=== PATIENT | male | born 1965 | race Caucasian/White ===

== ENCOUNTER 2016-05-17 | Outpatient (CLI) | payer MEDICARE, MEDICAID | END 2016-05-17 16:52 | disposition critical access hospital (66) | DX: R45.851 Suicidal ideations (principal) | CPT/HCPCS: A0425; A0429 ==

== ENCOUNTER 2016-05-17 17:11 | Emergency (ER) | payer MEDICARE, MEDICAID ==
[2016-05-17] MEDS ORDERED: LORazepam 0.5 MG TABLET PO STA ×2 (18:27→22:07)
[2016-05-17] MEDS ORDERED: LORazepam 0.5 MG TABLET ONE ×2 (18:31→22:07)
[2016-05-17] MEDS ORDERED: NICOTINE 21 MG PATCH TOP STA (18:43)
[2016-05-17] MEDS ORDERED: NICOTINE 21 MG PATCH TOP ONE (18:52)
[2016-05-18] MEDS ORDERED: QUEtiapine 25 MG TABLET PO STA (01:10)
[2016-05-18] MEDS ORDERED: HYDROcod/ACETAM 5/325 MG TABLET PO STA ×2 (01:12→09:22)
[2016-05-18] MEDS ORDERED: HYDROcod/ACETAM 5/325 MG TABLET ONE ×2 (01:13→09:26)
[2016-05-18] MEDS ORDERED: LORazepam 0.5 MG TABLET PO STA (07:45)
[2016-05-18] MEDS ORDERED: LORazepam 0.5 MG TABLET ONE (07:48)
== END 2016-05-18 13:28 | disposition home or self-care (01) ==
DX: R45.851 Suicidal ideations (principal); F32.9 Major depressive disorder, single episode, unspecified; F10.120 Alcohol abuse with intoxication, uncomplicated; R03.0 Elevated blood-pressure reading, without diagnosis of hypertension; M54.9 Dorsalgia, unspecified; G89.29 Other chronic pain; F17.200 Nicotine dependence, unspecified, uncomplicated
CPT/HCPCS: 36415; 80053; 80306; 80307; 83690; 85025; 99284; A9270; G0480

== ENCOUNTER 2016-06-20 07:36 | Outpatient (CLI) | payer MEDICARE, MEDICAID | END 2016-06-20 07:37 | disposition home or self-care (01) | DX: F33.0 Major depressive disorder, recurrent, mild (principal); E55.9 Vitamin D deficiency, unspecified; Z79.899 Other long term (current) drug therapy ==

== ENCOUNTER 2016-09-20 12:16 | Outpatient (CLI) | payer MEDICARE, MEDICAID ==
--- NOTE | 2016-09-20 16:46 | XRAY Report ---
TWO VIEW CHEST: 09/20/2016 CLINICAL INDICATION: Chest wall mass. FINDINGS: Frontal and lateral views of the chest demonstrate a normal cardiac silhouette. The lungs are clear. No abnormal calcification or ossification is appreciated in the chest wall soft tissues. IMPRESSION: NORMAL CHEST. CONSIDER CT OR MRI FOR FURTHER EVALUATION OF A CHEST WALL MASS. JOB #: [id number] EXT JOB #:[id number]
== END 2016-09-20 12:17 | disposition home or self-care (01) ==
LOC: DI.N 12:16
PROVIDERS: ATTEND Family Medicine
DX: R22.2 Localized swelling, mass and lump, trunk (principal)
CPT/HCPCS: 71020

== ENCOUNTER 2016-11-17 08:40 | Outpatient (CLI) | payer MEDICARE, MEDICAID ==
--- NOTE | 2016-11-17 20:02 | Mammography Report ---
DIGITAL DIAGNOSTIC BILATERAL MAMMOGRAM: 11/17/2016 CLINICAL INDICATION: Painful palpable abnormality right retroareolar breast. TECHNIQUE: Bilateral CC and MLO views. FINDINGS: This is the patient's baseline mammogram. There is asymmetric gynecomastia, right greater than left. No suspicious masses , clustered microcalcifications, or regions of architectural distortion are identified. IMPRESSION: ASYMMETRIC GYNECOMASTIA. RECOMMENDATION: Continued clinical evaluation. BIRADS CATEGORY 2 - BENIGN FINDINGS. STANDARD QUALIFYING STATEMENTS 1. This examination was reviewed with the aid of Computer-Aided Detection (CAD). 2. A negative or benign imaging report should not delay biopsy if clinically suspicious findings are present. Consider surgical consultation if warranted. More than 5% of cancers are not identified by imaging. 3. Dense breasts may obscure an underlying neoplasm. JOB #: [id number] EXT JOB #: [id number] DOMINGO
== END 2016-11-17 08:41 | disposition home or self-care (01) ==
LOC: DI 08:40
PROVIDERS: ATTEND Family Medicine
DX: N62 Hypertrophy of breast (principal)
CPT/HCPCS: 77066

== ENCOUNTER 2017-01-19 22:28 | Outpatient (CLI) | payer MEDICARE, MEDICAID | END 2017-01-19 22:29 | disposition critical access hospital (66) | LOC: EMS 22:28 | PROVIDERS: ATTEND Surgery | DX: R45.851 Suicidal ideations (principal); R07.81 Pleurodynia; W19.XXXA Unspecified fall, initial encounter; Y92.032 Bedroom in apartment as the place of occurrence of the external cause | CPT/HCPCS: A0425; A0429 ==

== ENCOUNTER 2017-01-19 22:49 | Emergency (ER) | payer MEDICARE, MEDICAID ==
[2017-01-19] MEDS ORDERED: SODIUM CHLORIDE 0.9% 1,000 ML IV ONE (23:12)
--- NOTE | 2017-01-19 23:13 | ED Physician Documentation ---
PD HPI MHE - Stated complaint Stated Complaint: ETOH/SI - Chief complaint Chief Complaint: MHE - History obtained from History obtained from: Patient, EMS - History of Present Illness Primary symptom: Suicidal ideation (states is going to kill himself with a gun) Timing - onset: Today Pain level max: 5 Pain level now: 5 Contributing factors: Substance abuse - ETOH - Additional information Additional information: Patient is a 51-year-old gentleman who is well-known alcoholic, he presents after drinking heavily today stating that he is going to kill himself with a gun. States that if he had access to again tonight he would have shot himself. He also states that he fell recently and injured his right ribs. States he has no interest in quitting drinking at this time. Review of Systems Ten Systems: 10 systems reviewed and negative Constitutional: denies: Fever, Chills Ears: denies: Ear pain Nose: denies: Rhinorrhea / runny nose, Congestion Throat: denies: Sore throat Cardiac: denies: Chest pain / pressure, Palpitations, Calf pain Respiratory: denies: Cough GI: denies: Nausea, Vomiting, Diarrhea Skin: denies: Rash Musculoskeletal: denies: Neck pain, Back pain Neurologic: denies: Focal weakness, Numbness, Headache PD PAST MEDICAL HISTORY - Past Medical History Past Medical History: Yes Neuro: Other GI: GERD, Pancreatitis Psych: Other Musculoskeletal: Chronic back pain - Past Surgical History Past Surgical History: Yes General: Colonoscopy Ortho: Rotator cuff repair HEENT: Other - Present Medications Home Medications: Ambulatory Orders Medication Instructions Recorded Confirmed Omeprazole [PriLOSEC] 20 mg PO DAILY 01/13/13 05/17/16 QUEtiapine [SEROquel] 100 mg ORAL QPM 08/14/14 01/20/17 HYDROcod/ACETAM 5/325 [[place] 5/325] 1 - 2 ea PO Q4H PRN 10/11/15 05/17/16 Lorazepam [Ativan] 1 mg PO TID PRN #7 tablet 10/11/15 05/17/16 cloNIDine [Catapres] 0.1 mg PO BID 01/20/17 01/20/17 - Allergies Allergies/Adverse Reactions: Allergies Allergy/AdvReac Type Severity Reaction Status Date / Time Penicillins AdvReac Unknown Rash Verified 09/16/17 03:01 - Social History Does the pt smoke?: Yes Smoking Status: Current every day smoker Does the pt drink ETOH?: Yes Does the pt have substance abuse?: No - Immunizations Immunizations are current?: Yes - POLST Patient has POLST: No PD ED PE NORMAL - Vitals Vital signs reviewed: Yes - General General: Alert and oriented X 3, No acute distress, Well developed/nourished - HEENT HEENT: PERRL, Moist mucous membranes - Neck Neck: Supple, no meningeal sign - Cardiac Cardiac: RRR, Strong equal pulses - Respiratory Respiratory: No respiratory distress, Clear bilaterally, Other (Tender to palpation over the right low ribs. No crepitus. No ecchymosis) - Abdomen Abdomen: Soft, Non tender, Other (Mild distention with mild caput [place]) - Back Back: No CVA TTP, No spinal TTP - Derm Derm: Warm and dry, No rash - Extremities Extremities: No deformity, No edema, No calf tenderness / cord - Neuro Neuro: Alert and oriented X 3 - Psych Psych: Normal mood, Normal affect Results - Vitals Vitals: Vital Signs - 24 hr 01/19/17 01/19/17 01/20/17 22:53 23:30 00:30 Temperature 36.1 C L Heart Rate 146 H 96 96 Respiratory 15 17 16 Rate Blood Pressure 105/63 115/62 121/77 O2 Saturation 96 95 99 01/20/17 01/20/17 01/20/17 01:15 02:12 02:37 Temperature Heart Rate 100 74 Respiratory 17 16 Rate Blood Pressure 132/79 H 101/67 107/75 O2 Saturation 100 97 Oxygen O2 Source Room air - EKG (time done) 2303 Rate: Rate (enter#) (109) Rhythm: Sinus tachycardia [place]: Normal Intervals: Normal [place] QRS: Normal Ischemia: Non specific changes - Labs Labs: Laboratory Tests 01/19/17 01/19/17 01/20/17 23:05 23:05 00:30 WBC 5.8 RBC 4.86 Hgb 15.5 Hct 45.7 MCV 94.0 MCH 31.9 H MCHC 33.9 RDW 13.8 Plt Count 231 MPV 7.1 L Neut # 2.3 Lymph # 3.0 [place] # 0.3 Eos # 0.1 Baso # 0.1 Absolute Nucleated RBC 0.00 Nucleated RBCs 0.1 Sodium 143 Potassium 3.5 Chloride 107 Carbon Dioxide 23 Anion Gap 13.0 BUN 15 Creatinine 1.1 Estimated GFR (MDRD) 70 L Glucose 137 H Calcium 8.6 Total Bilirubin 0.4 AST 53 H ALT 24 Alkaline Phosphatase 84 Total Protein 7.2 Albumin 3.8 Globulin 3.4 Albumin/Globulin Ratio 1.1 Lipase 32 Urine Color YELLOW Urine Clarity CLEAR Urine pH 5.5 Ur Specific [place] 1.025 Urine Protein NEGATIVE Urine Glucose (UA) NEGATIVE Urine Ketones NEGATIVE Urine Occult Blood NEGATIVE Urine Nitrite NEGATIVE Urine Bilirubin NEGATIVE Urine Urobilinogen 0.2 (NORMAL) Ur Leukocyte Esterase NEGATIVE Ur Microscopic Review NOT INDICATED Urine Culture Comments NOT INDICATED Salicylates < 6.0 Urine Opiates Screen NEGATIVE Ur Oxycodone Screen NEGATIVE Urine Methadone Screen NEGATIVE Ur Propoxyphene Screen NEGATIVE Acetaminophen < 10 L Ur Barbiturates Screen NEGATIVE Ur Tricyclics Screen POSITIVE H Ur Phencyclidine Scrn NEGATIVE Ur Amphetamine Screen NEGATIVE U Methamphetamines Scrn NEGATIVE U Benzodiazepines Scrn POSITIVE H Urine Cocaine Screen NEGATIVE U Cannabinoids Screen NEGATIVE Ethyl Alcohol 336.4 - Rads (name of study) ribs xray Radiology: Prelim report reviewed, EMP read contemporaneously, See rad report ( old rib fractures. no acute findings) PD MEDICAL DECISION MAKING - ED course Complexity details: reviewed old records, reviewed results, re-evaluated patient , considered differential, d/w patient ED course: Patient is a 51-year-old male who presents to the emergency department with alcohol intoxication and suicidal ideation. He will be allowed to sober in the emergency department overnight for repeat evaluation. Will likely need social work evaluation in the morning to determine if he is still suicidal. Patient will be signed out to the [facility] emergency department physician. This document was made in part using voice recognition software. While efforts are made to proofread this document, sound alike and grammatical errors may occur. Departure - Departure Clinical Impression: Suicidal ideation Alcohol intoxication Qualifiers: Complication of substance-induced condition: uncomplicated Qualified Code(s): F10.920 - Alcohol use, unspecified with intoxication, uncomplicated Condition: Stable
[2017-01-19 23:15] LABS: BASOPHILS # (AUTO) 0.1 10^3/uL (0.0-0.1); BASOPHILS % (AUTO) 1.2 %; EOSINOPHILS # (AUTO) 0.1 10^3/uL (0.0-0.7); EOSINOPHILS % (AUTO) 2.1 %; HCT - HEMATOCRIT 45.7 % (42.0-52.0); HGB - HEMOGLOBIN 15.5 g/dL (14.0-18.0); LYMPHOCYTES % (AUTO) 52.2 %; MEAN CORPUSCULAR HEMOGLOBIN 31.9 pg (27.0-31.0); MEAN CORPUSCULAR HGB CONC 33.9 g/dL (32.0-36.0); MEAN PLATELET VOLUME 7.1 fL (7.4-11.4); MONOCYTES # (AUTO) 0.3 10^3/uL (0.0-1.0); MONOCYTES % (AUTO) 5.5 %; NEUTROPHILS # (AUTO) 2.3 10^3/uL (1.5-6.6); NUCLEATED RED BLOOD CELLS AUTO 0.1 /100WBC; RED BLOOD COUNT 4.86 10^6/uL (4.70-6.10); RED CELL DISTRIBUTION WIDTH 13.8 % (12.0-15.0); UNCORRECTED WHITE BLOOD COUNT 5.8 x10^3/uL; WHITE BLOOD COUNT 5.8 x10^3/uL (4.8-10.8)
[2017-01-19 23:31] LABS: ALBUMIN/GLOBULIN RATIO 1.1 (1.0-2.2); BILIRUBIN,TOTAL 0.4 mg/dL (0.2-1.0); BUN - BLOOD UREA NITROGEN 15 mg/dL (6-20); CALCIUM 8.6 mg/dL (8.5-10.3); CARBON DIOXIDE - CO2 23 mmol/L (21-32); CHLORIDE 107 mmol/L (101-111); CREATININE 1.1 mg/dL (0.6-1.2); GFR - MDRD 70 (>89); GLUCOSE 137 mg/dL (70-100); LIPASE 32 U/L (22-51); POTASSIUM 3.5 mmol/L (3.5-5.0); SALICYLATE < 6.0 mg/dL; SODIUM 143 mmol/L (135-145); TOTAL PROTEIN 7.2 g/dL (6.7-8.2)
[2017-01-19 23:41] LABS: ACETAMINOPHEN < 10 ug/mL (10-30)
[2017-01-20 00:35] LABS: BILIRUBIN,URINE NEGATIVE (NEGATIVE); PH,URINE 5.5 PH (5.0-7.5)
[2017-01-20 00:37] LABS: UA CHARGE (STRIP ONLY) YES; UR CULTURE IF IND NOT INDICATED
[2017-01-20] MEDS ORDERED: ACETAMINOPHEN 325 MG TABLET PO STA (01:01)
[2017-01-20] MEDS ORDERED: ACETAMINOPHEN 325 MG TABLET PO ONE (01:26)
--- NOTE | 2017-01-20 02:04 | XRAY Preliminary Report ---
Exam: XR Ribs w/PA Chest RT IMPRESSION: 1. Old right rib fractures. No definite acute abnormality seen. [facility] SITE ID: [id number]
--- NOTE | 2017-01-20 02:07 | XRAY Report ---
EXAM: RIGHT RIB RADIOGRAPHY EXAM DATE: 01/20/2017 01:50 AM. CLINICAL HISTORY: Fall, R rib pain. COMPARISON: 09/20/2016. TECHNIQUE: 1 view of the chest and 4 views of the ribs. FINDINGS: Bones: Old right rib fractures. No definite acute fracture identified. Lungs: No alveolar consolidation or pleural effusion. No pneumothorax. Mediastinum: With and exam limitations, cardiomediastinal silhouette is unremarkable. Other: None. IMPRESSION: 1. Old right rib fractures. No definite acute abnormality seen. [facility] Referring Provider Line: [phone] SITE ID: [id number]
[2017-01-20] MEDS ORDERED: SODIUM CHLORIDE FLUSH 0.9% 10 ML SYRINGE IVP ONE (09:06)
--- NOTE | 2017-01-20 12:34 | ED Physician Documentation ---
PD HPI MHE - Stated complaint Stated Complaint: ETOH/SI - Chief complaint Chief Complaint: MHE - History obtained from History obtained from: Patient - History of Present Illness Primary symptom: Suicidal ideation, Other (etoh) Timing - onset: Last night Contributing factors: Substance abuse - ETOH, Other (long time pet is about to ) Similar symptoms before: Diagnosis (alcohol intoxication) Recently seen: Not recently seen - Additional information Additional information: 51-year-old male alcoholic with prior history of depression and suicidal ideation was heavily intoxicated last night and feeling suicidal. This morning as she is sober he is no longer feeling suicidal. He is able contract with the social work professor for safety. He states the trigger for his stress is a pet (dog) that is about to . Review of Systems Constitutional: denies: Fever Skin: denies: Rash Neurologic: denies: Generalized weakness, Focal weakness, Numbness PD PAST MEDICAL HISTORY - Past Medical History Past Medical History: Yes Neuro: Other GI: GERD, Pancreatitis Psych: Other Musculoskeletal: Chronic back pain - Past Surgical History Past Surgical History: Yes General: Colonoscopy Ortho: Rotator cuff repair HEENT: Other - Present Medications Home Medications: Ambulatory Orders Medication Instructions Recorded Confirmed Omeprazole [PriLOSEC] 20 mg PO DAILY 01/13/13 05/17/16 QUEtiapine [SEROquel] 100 mg ORAL QPM 08/14/14 01/20/17 HYDROcod/ACETAM 5/325 [[place] 5/325] 1 - 2 ea PO Q4H PRN 10/11/15 05/17/16 Lorazepam [Ativan] 1 mg PO TID PRN #7 tablet 10/11/15 05/17/16 cloNIDine [Catapres] 0.1 mg PO BID 01/20/17 01/20/17 - Allergies Allergies/Adverse Reactions: Allergies Allergy/AdvReac Type Severity Reaction Status Date / Time Penicillins AdvReac Unknown Rash Verified 01/20/17 03:01 - Social History Does the pt smoke?: Yes Smoking Status: Current every day smoker Does the pt drink ETOH?: Yes Does the pt have substance abuse?: No - Immunizations Immunizations are current?: Yes - POLST Patient has POLST: No PD ED PE NORMAL - Vitals Vital signs reviewed: Yes (exit vitals are normal tachy on arrival ) - General General: No acute distress, Well developed/nourished, Other (The patient is alert cooperative and shaky) - HEENT HEENT: Atraumatic - Respiratory Respiratory: No respiratory distress - Derm Derm: Normal color, Warm and dry, No rash - Extremities Extremities: No deformity - Neuro Neuro: No motor deficit, No sensory deficit - Psych Psych: Normal mood, Normal affect Results - Vitals Vitals: Vital Signs - 24 hr 01/19/17 01/19/17 01/20/17 22:53 23:30 00:30 Temperature 36.1 C L Heart Rate 146 H 96 96 Respiratory 15 17 16 Rate Blood Pressure 105/63 115/62 121/77 O2 Saturation 96 95 99 01/20/17 01/20/17 01/20/17 01:15 02:12 02:37 Temperature Heart Rate 100 74 Respiratory 17 16 Rate Blood Pressure 132/79 H 101/67 107/75 O2 Saturation 100 97 01/20/17 06:22 Temperature Heart Rate 77 Respiratory 16 Rate Blood Pressure 107/62 O2 Saturation 100 Oxygen O2 Source Room air - Labs Labs: Laboratory Tests 01/19/17 01/19/17 01/20/17 23:05 23:05 00:30 WBC 5.8 RBC 4.86 Hgb 15.5 Hct 45.7 MCV 94.0 MCH 31.9 H MCHC 33.9 RDW 13.8 Plt Count 231 MPV 7.1 L Neut # 2.3 Lymph # 3.0 Rich # 0.3 Eos # 0.1 Baso # 0.1 Absolute Nucleated RBC 0.00 Nucleated RBCs 0.1 Sodium 143 Potassium 3.5 Chloride 107 Carbon Dioxide 23 Anion Gap 13.0 BUN 15 Creatinine 1.1 Estimated GFR (MDRD) 70 L Glucose 137 H Calcium 8.6 Total Bilirubin 0.4 AST 53 H ALT 24 Alkaline Phosphatase 84 Total Protein 7.2 Albumin 3.8 Globulin 3.4 Albumin/Globulin Ratio 1.1 Lipase 32 Urine Color YELLOW Urine Clarity CLEAR Urine pH 5.5 Ur Specific [place] 1.025 Urine Protein NEGATIVE Urine Glucose (UA) NEGATIVE Urine Ketones NEGATIVE Urine Occult Blood NEGATIVE Urine Nitrite NEGATIVE Urine Bilirubin NEGATIVE Urine Urobilinogen 0.2 (NORMAL) Ur Leukocyte Esterase NEGATIVE Ur Microscopic Review NOT INDICATED Urine Culture Comments NOT INDICATED Salicylates < 6.0 Urine Opiates Screen NEGATIVE Ur Oxycodone Screen NEGATIVE Urine Methadone Screen NEGATIVE Ur Propoxyphene Screen NEGATIVE Acetaminophen < 10 L Ur Barbiturates Screen NEGATIVE Ur Tricyclics Screen POSITIVE H Ur Phencyclidine Scrn NEGATIVE Ur Amphetamine Screen NEGATIVE U Methamphetamines Scrn NEGATIVE U Benzodiazepines Scrn POSITIVE H Urine Cocaine Screen NEGATIVE U Cannabinoids Screen NEGATIVE Ethyl Alcohol 336.4 01/20/17 09:09 WBC RBC Hgb Hct MCV MCH MCHC RDW Plt Count MPV Neut # Lymph # Rich # Eos # Baso # Absolute Nucleated RBC Nucleated RBCs Sodium Potassium Chloride Carbon Dioxide Anion Gap BUN Creatinine Estimated GFR (MDRD) Glucose Calcium Total Bilirubin AST ALT Alkaline Phosphatase Total Protein Albumin Globulin Albumin/Globulin Ratio Lipase Urine Color Urine Clarity Urine pH Ur Specific [place] Urine Protein Urine Glucose (UA) Urine Ketones Urine Occult Blood Urine Nitrite Urine Bilirubin Urine Urobilinogen Ur Leukocyte Esterase Ur Microscopic Review Urine Culture Comments Salicylates Urine Opiates Screen Ur Oxycodone Screen Urine Methadone Screen Ur Propoxyphene Screen Acetaminophen Ur Barbiturates Screen Ur Tricyclics Screen Ur Phencyclidine Scrn Ur Amphetamine Screen U Methamphetamines Scrn U Benzodiazepines Scrn Urine Cocaine Screen U Cannabinoids Screen Ethyl Alcohol 114.5 PD MEDICAL DECISION MAKING - ED course Complexity details: considered differential, d/w patient ED course: 51-year-old male arrived to the emergency department last night suicidal and intoxicated. He spent the night in the emergency department he is sober this morning he does have the shakes and indicates that he will be seeking inpatient alcohol treatment on Sunday. He has had alcohol withdrawal and number of times and he will taper his alcohol use.He is evaluated by the social work professor and contracted for safety. Departure - Departure Disposition: 01 Home, Self Care Clinical Impression: Suicidal ideation, Stress reaction Alcohol intoxication Qualifiers: Complication of substance-induced condition: uncomplicated Qualified Code(s): F10.920 - Alcohol use, unspecified with intoxication, uncomplicated Condition: Stable Instructions: ED Depression, ED Stress React, ED Alcohol Intoxication Follow-Up: Jone Kumar MD [Primary Care Provider] - Comments: Cut your alcohol consumption daily to nothing over the next week.
[2017-01-20 12:40] VITALS: BP 140/97
== END 2017-01-20 12:47 | disposition home or self-care (01) ==
LOC: EDUNIT# → ED 22:49
DX: R45.851 Suicidal ideations (principal); F10.920 Alcohol use, unspecified with intoxication, uncomplicated; F17.200 Nicotine dependence, unspecified, uncomplicated; R00.0 Tachycardia, unspecified
CPT/HCPCS: 36415; 71101; 80053; 80306; 80307; 81003; 83690; 85025; 93005; 99284; 99285; A9270; G0480; 80320; 80329; 81001; 87086

== ENCOUNTER 2017-03-05 13:25 | Emergency (ER) | payer MEDICARE, MEDICAID ==
[2017-03-05 13:36] VITALS: BP 118/83
[2017-03-05] MEDS ORDERED: oxyCODONE 5 MG TABLET PO STA (15:52)
[2017-03-05] MEDS ORDERED: oxyCODONE 5 MG TABLET ONE (16:08)
--- NOTE | 2017-03-05 16:39 | Ultrasound Preliminary Report ---
Exam: US ABDOMEN LIMITED IMPRESSION: Submitted images demonstrate no evidence of focal fluid collection. [facility] SITE ID: [id number]
--- NOTE | 2017-03-05 16:42 | Ultrasound Report ---
EXAM: ABDOMEN ULTRASOUND LIMITED, RUQ EXAM DATE: 03/05/2017 04:29 PM. CLINICAL HISTORY: Abdominal pain. COMPARISON: 02/22/2017. TECHNIQUE: Real-time scanning was performed with static images obtained. FINDINGS: Submitted images demonstrate no evidence of focal fluid collection. IMPRESSION: Submitted images demonstrate no evidence of focal fluid collection. [facility] Referring Provider Line: [phone] SITE ID: [id number]
--- NOTE | 2017-03-05 18:02 | ED Physician Documentation ---
History of Present Illness - Stated complaint Stated Complaint: ABD PAIN - Chief complaint Chief Complaint: Abd Pain - Additonal information Additional information: hx from pt and 51 male known to our ER for EtOH abuse, mental health, suicidal apparently he went to EtOH detox in [facility] Feb 12 on Feb 16 he had emergency gallbladder surgery 2 days later he had inc pain and was found to have a bowel perf and was sent to [facility] in [place] where he had surgery and now he has an ostomy and an open wound that needs to have the dressing changed three times a day he was dced back home to [facility] with 10 percocet pills and told to follow up with a local surgeon he has an appt to see Dr Woodward Wed (2 days from now) ran out of pain meds today is having pain - when carefully questioned it does not really seem acutely changed or different just worse 2/2 now meds no fever and local swelling to right port site they called Dr Almazan office for med refill and that request was denied as Dr Woodward has not seen pt so came to ER Review of Systems Constitutional: denies: Fever GI: reports: Abdominal Pain PD PAST MEDICAL HISTORY - Past Medical History Past Medical History: Yes Neuro: Other GI: GERD, Pancreatitis Psych: Other Musculoskeletal: Chronic back pain - Past Surgical History Past Surgical History: Yes General: Cholecystectomy, Colonoscopy Ortho: Rotator cuff repair HEENT: Other - Present Medications Home Medications: Ambulatory Orders Medication Instructions Recorded Confirmed Omeprazole [PriLOSEC] 20 mg PO DAILY 01/13/13 03/05/17 QUEtiapine [SEROquel] 100 mg ORAL QPM 08/14/14 03/05/17 HYDROcod/ACETAM 5/325 [[place] 5/325] 1 - 2 ea PO Q4H PRN 10/11/15 03/05/17 oxyCODONE [Roxicodone] 5 mg PO Q4-6H PRN #10 tablet 03/05/17 - Allergies Allergies/Adverse Reactions: Allergies Allergy/AdvReac Type Severity Reaction Status Date / Time Penicillins AdvReac Unknown Rash Verified 03/05/17 13:36 - Social History Does the pt smoke?: No Smoking Status: Never smoker Does the pt drink ETOH?: No Does the pt have substance abuse?: No - Immunizations Immunizations are current?: Yes - POLST Patient has POLST: No PD ED PE NORMAL - Vitals Vital signs reviewed: Yes - General General: Alert and oriented X 3 - Cardiac Cardiac: RRR - Respiratory Respiratory: No respiratory distress, Clear bilaterally - Abdomen Abdomen: Other (ostomy pink and draining, right vertical incision clean and packed without infection or excessive drainage, abd mod swollen and tender b ut not peritoneal, small focal swelling over right lower port site) Results - Vitals Vitals: Vital Signs - 24 hr 03/05/17 13:30 Temperature 36.4 C L Heart Rate 98 Respiratory 17 Rate Blood Pressure 118/83 H O2 Saturation 100 Oxygen O2 Source Room air PD MEDICAL DECISION MAKING - ED course ED course: diff situation, pt with known hx menatl health and substance abuse req narcotic refill - but also is very recently port op and has ostomy and large open packed surigcial incision so i do believe he has pain so will rx a very limited number to last until appt on Sun, purposely chose oxcodone s apap as that would be safer in an OD and has hx EtOH abuse so likely liver dz Departure - Departure Disposition: 01 Home, Self Care Clinical Impression: Post-op pain, Medication refill Condition: Good Instructions: ED Post Op Pain Follow-Up: GANESH WOODWARD MD [Provider Admit Priv/Credential] - Prescriptions: oxyCODONE [Roxicodone] 5 mg PO Q4-6H PRN #10 tablet PRN Reason: Severe Pain Comments: Please follow up with Dr Woodward The ER is not supposed to refill pain medications - this was an exceptional circumstance so I prescribed a limited number - but not further refills can be gotten through the ER - your surgeon and/or PMD will need to manage your pain medications form now on
== END 2017-03-05 18:16 | disposition home or self-care (01) ==
LOC: ED 13:25
DX: G89.18 Other acute postprocedural pain (principal)
CPT/HCPCS: 76705; 99282; 99283; A9270

== ENCOUNTER 2017-08-03 09:58 | Outpatient (CLI) | payer MEDICARE, MEDICAID ==
[2017-08-03 10:11] LABS: BASOPHILS # (AUTO) 0.1 10^3/uL (0.0-0.1); BASOPHILS % (AUTO) 1.3 %; EOSINOPHILS # (AUTO) 0.1 10^3/uL (0.0-0.7); EOSINOPHILS % (AUTO) 1.7 %; HGB - HEMOGLOBIN 13.3 g/dL (14.0-18.0); LYMPHOCYTES % (AUTO) 43.8 %; MEAN CORPUSCULAR HEMOGLOBIN 31.3 pg (27.0-31.0); MEAN CORPUSCULAR HGB CONC 33.8 g/dL (32.0-36.0); MEAN CORPUSCULAR VOLUME 92.4 fL (80.0-94.0); MONOCYTES # (AUTO) 0.4 10^3/uL (0.0-1.0); MONOCYTES % (AUTO) 7.9 %; NEUTROPHILS % (AUTO) 45.3 %; PLT - PLATELET COUNT 163 10^3/uL (130-450); RED BLOOD COUNT 4.25 10^6/uL (4.70-6.10); RED CELL DISTRIBUTION WIDTH 14.8 % (12.0-15.0); WHITE BLOOD COUNT 4.5 x10^3/uL (4.8-10.8)
[2017-08-03 10:25] LABS: CALCIUM 8.1 mg/dL (8.5-10.3); CREATININE 0.8 mg/dL (0.6-1.2)
== END 2017-08-03 09:59 | disposition home or self-care (01) ==
LOC: LAB 09:58
PROVIDERS: ATTEND Surgery
DX: K43.9 Ventral hernia without obstruction or gangrene (principal); Z93.3 Colostomy status
CPT/HCPCS: 36415; 80048; 85025

== ENCOUNTER 2017-08-08 05:55 | Inpatient (IN) | payer MEDICARE, MEDICAID ==
[2017-08-08] MEDS ORDERED: ceFAZolin 2 GM/50 ML 2 GM/50 ML BAG IV ONE (06:31)
[2017-08-08] MEDS ORDERED: metroNIDAZOLE 500 MG/100 ML 500 MG/100 ML BAG ONE (06:32)
[2017-08-08] MEDS ORDERED: LACTATED RINGERS 1,000 ML IV ONE ×5 (06:50→14:40)
[2017-08-08] MEDS ORDERED: ONDANSETRON 4 MG/2 ML VIAL ONE ×2 (07:00→14:13)
[2017-08-08] MEDS ORDERED: BUPIVACAINE 0.5% PF 10 ML VIAL ONE (07:14)
[2017-08-08] MEDS ORDERED: BUPIVACAINE 0.5%-EPI 1:200000 PF 10 ML VIAL ONE (07:15)
[2017-08-08] MEDS ORDERED: ONDANSETRON 4 MG/2 ML VIAL IVP ONE (08:45)
[2017-08-08] MEDS ORDERED: ROCURONIUM 50 MG/5 ML VIAL IVP ONE (08:45)
[2017-08-08] MEDS ORDERED: METOPROLOL 5 MG/5 ML VIAL IVP ONE (08:45)
[2017-08-08] MEDS ORDERED: fentaNYL 250 MCG/5 ML VIAL IVP ONE (08:45)
[2017-08-08] MEDS ORDERED: ePHEDrine 50 MG/ML VIAL IVP ONE (08:45)
[2017-08-08] MEDS ORDERED: ACETAMINOPHEN 1,000 MG/100 ML 100 ML IV ONE (08:45)
[2017-08-08] MEDS ORDERED: PROPOFOL 200 MG/20 ML VIAL IVP ONE (08:45)
[2017-08-08] MEDS ORDERED: ROPIVACAINE 0.5% PF 20 ML VIAL EPI ONE (08:45)
[2017-08-08] MEDS ORDERED: LIDOCAINE-MPF 2% 5 ML VIAL IM ONE (08:45)
[2017-08-08] MEDS ORDERED: MIDAZOLAM 2 MG/2 ML VIAL IVP ONE (08:45)
[2017-08-08] MEDS ORDERED: GENTAMICIN 80 MG/2 ML VIAL IM ONE (10:59)
[2017-08-08] MEDS ORDERED: GENTAMICIN 80 MG/2 ML VIAL IL ONE (10:59)
[2017-08-08] MEDS ORDERED: BUPIVACAINE 0.5% PF 10 ML VIAL IM ONE (11:01)
[2017-08-08] MEDS ORDERED: GENTAMICIN 80 MG/2 ML VIAL ONE (11:02)
[2017-08-08] MEDS ORDERED: BUPIVACAINE 0.5%-EPI 1:200000 PF 30 ML VIAL SUBQ ONE (11:02)
[2017-08-08] MEDS ORDERED: fent/BUPIV 2 MCG/0.125% 250 ML EP PRN (12:15)
[2017-08-08] MEDS ORDERED: ONDANSETRON 4 MG/2 ML VIAL IVP PRN (13:15)
--- NOTE | 2017-08-08 13:20 | OPERATIVE REPORT ---
Operative Report - General Admit Date: 08/08/17 Procedure Date: 08/08/17 Pre-Op Diagnosis: ostomy and ventral hernia Procedure Performed: Exploratory laparotomy, lysis of adhesions, take down of colostomy with colorectal anastomosis, myofascial release, ventral hernia repair with mesh, scar revision Post Op Diagnosis: same - Procedure Note Primary Surgeon: Crissy Secondary Surgeon: Ap Anesthesia Provider: Denilson Carl Anesthesia Technique: General ET tube IV Fluids (mL): 3,200 Estimated Blood Loss (mL): 50 Urine Output (mL): 650 Drain/Tube Type: David Mena round drain Complications: none - Other Other Information/Narrative: Indication for procedure: This is a 52-year-old male who underwent a sigmoidectomy with diverting end colostomy at an outside facility secondary to perforated diverticulitis approximately 4 months prior. He developed a postoperative infection infection and subsequently a ventral hernia. He is here today for reversal of his ostomy and repair of his ventral hernia. Findings: After obtaining informed consent from the patient he was brought into the operating room and an epidural catheter placed. He was intubated by anesthesia. He was administered perioperative antibiotics. SCD boots were applied and he was prepped and draped in the usual sterile fashion, Ioban was placed and a timeout was taken according to protocol. The stoma was closed with a running locking 3-0 silk suture. An elliptical incision was created around the patient's ostomy. The skin was divided to the subcutaneous tissue and the ostomy stump was circumferentially dissected from the subcutaneous tissue down to the level of the fascia. There was a small parastomal hernia hernia present and small bowel loops were protected during dissection. The stoma was completely dissected from the fascia and reduced. A midline incision was then made from 3 cm below the umbilicus towards the xiphoid process. The subcutaneous tissue was carefully divided and a very thin hernia sac was encountered. The patient's abdomen was entered in the epigastric region protecting the underlying bowel and omentum. Koker clamps were then placed on the fascia and the underlying omentum and small bowel were carefully lysed from the anterior abdominal wall using combination of Metzenbaums dissection and electrocautery. The bowel was completely freed from the anterior abdominal wall. The stoma was then reduced into the abdominal cavity and it was further dissected from small bowel adhesions using a combination of electrocautery and Metzenbaum dissection. The left colon was then mobilized by opening up the white line of Toldt Towards the left upper quadrant. I then turned my attention to the patient's pelvis and the rectal stump was identified. This was freed from small bowel adhesions. The rectosigmoid stump was noted to be above the patient's pelvic brim. The rectal sizer was inserted but we are unable to reach the end of the stump. For this reason approximately 5 cm of distal sigmoid was transected. The site of distal transection was selected and electrocautery was utilized to open up the pertoneum overlying the mesentary. The colon was circumferentially dissected from the underlying mesentery. The contour stapler was then used to divide the rectum at this location. The underlying mesentery was then divided using the LigaSure device near the colon. The specimen was then passed off. The proximal stump was then brought down to the pelvis and was noted to easily be lying within the pelvis for the anastomosis. Blue towels were placed over the incision and the proximal colonic stump was then grasped using the pursestring device and a 3-0 Prolene suture was passed through the device. The stoma was then transected using a 10 blade and the specimen was passed off. The colon was then opened however the pursestring had not passed through an entire side of the colon, but was rather through the mesentery. It was removed. The colon was then grasped and the mesentery was divided off of the colonic wall proximally several centimeters. The distal stump was again grasped with the pursestring device and the 3-0 Prolene was inserted through the device and the distal colon was again transected using a 10 blade. This time the pursestring device did go through all aspects of the colonic wall. The colon was opened and the anvil device from a 28 mm EEA stapler was inserted. The pursestring was tied down. The EEA was then inserted and opened. The anvil was then connected to the EEA stapling device. The staple was then created and the stapling device removed. The donuts were noted to be complete. A leak test was then performed using a rigid proctosigmoidoscopy and no air bubbles are seen. The abdominal cavity was irrigated and suctioned. Hemostasis was noted to be achieved. The surgeons changed gown and gloves. We then turned our attention to the ventral hernia repair.The fascial edges were grasped and skin flaps were created over the anterior rectus sheath approximately 4 cm circumferentially.The hernia sac was so thin that it did not require transection. The posterior rectus sheath was then grasped and was opened up opening the retrorectal space. This was performed up to the level of the xiphoid process, laterally to the similunar lines bilaterally and towards the pubic bone inferiorly. On the patient's left abdominal wall the ostomy site was carefully taken down as well. The remaining defect in the posterior rectus sheath was closed with a running 3-0 Vicryl suture in a transverse fashion. After complete mobilization of the retrorectal space this was then closed with a running 2-0 PDS.A light weight [id number] polypropylene ultra Pro mesh was then opened and placed in gentamicin antibiotic solution. The team's gloves were changed. The mesh was then placed in the retrorectal space and trimmed to an appropriate length overlapping the midline closure by approximately 5 cm bilaterally and 2 cm superiorly and inferiorly. The mesh was sutured into place with Interrupted 2-0 Prolene sutures to the anterior rectal sheath in a circumferential fashion placing approximately 12 sutures. I then placed a 10 Canadian round VENICE drain over the mesh. This was brought out through the right lateral abdominal wall. The anterior rectus sheath was then closed with a running 0 looped PDS. A second 10 Canadian round VENICE drain was placed in the subcutaneous space. Both drains were sutured in place with 2-0 nylon. The subcutaneous tissue was then closed with 3-0 Vicryl. The midline scar was then grasped and was transected using a 15 blade. It was noted to be approximately 20 cm in length. Hemostasis was then achieved using electrocautery. The subcutaneous tissue was copiously irrigated with gentamicin irrigation. The ostomy site was then closed with interrupted 3-0 Vicryl and the skin incision was closed with interrupted 3-0 nylon. 1/2 inch iodoform packing was placed in between the sutures in the ostomy closure site. The midline incision was then closed with a running 4-0 Monocryl. The ostomy site was dressed with 4 x 4's and the midline incision was closed with a Prevena VAC. An abdominal binder was placed. The patient was subsequently extubated and taken to the recovery room in stable condition.
[2017-08-08] MEDS ORDERED: fent/BUPIV 2 MCG/0.125% 250 ML EP ONE (13:24)
[2017-08-08] MEDS: HYDROmorphone 1 MG/ML CARPUJECT ONE ×4 (14:15→20:35)
[2017-08-08] MEDS ORDERED: NALBUPHINE 20 MG/ML AMP IVP PRN (16:04)
[2017-08-08] MEDS ORDERED: METOCLOPRAMIDE 10 MG/2 ML VIAL IVP PRN (16:04)
[2017-08-08] MEDS ORDERED: diphenhydrAMINE INJ 50 MG/ML VIAL IV PRN (16:04)
[2017-08-08] MEDS: INSULIN ASPART 300 UNIT/3 ML PEN SUBQ SCH ×2 (16:51→20:47)
[2017-08-08] MEDS: SODIUM CHLORIDE FLUSH 0.9% 10 ML SYRINGE IVP SCH (17:38)
[2017-08-08] MEDS: ONDANSETRON 4 MG/2 ML VIAL IVP PRN (17:43)
[2017-08-08] MEDS: SODIUM CHLORIDE FLUSH 0.9% 10 ML SYRINGE IVP PRN ×2 (17:43→20:21)
[2017-08-08] MEDS: ACETAMINOPHEN 1,000 MG/100 ML 100 ML IV PRN (17:48)
[2017-08-08] MEDS: PIPERACILLIN/TAZOBACTAM 3.375 GM in SODIUM CHLORIDE 0.9% MINIBAG 100 ML IV SCH (18:33)
[2017-08-08] MEDS ORDERED: SODIUM CHLORIDE FLUSH 0.9% 10 ML SYRINGE ONE (20:27)
[2017-08-08] MEDS: QUEtiapine 25 MG TABLET PO SCH (20:54)
--- NOTE | 2017-08-08 20:54 | PROCEDURE REPORT ---
Hospitalist Procedure Note - Procedure Note Procedure Note: Called to patient room due to catheter disconnection. Catheter had become disconnected from tubing. Epidural replaced due to need for adequate post op pain control. Patient given 1mg dilaudid IV and placed in a siting position. Back prepped with betadine and sterile drape applied. Epidural space at L1-L2 located using loss of resistance with air at 5cm. Catheter placed with ease at 10cm. Negative paresthesia, negative heme, negative test dose. Epidural dosed with 6ml of 0.25% bupivicaine at epidural gtt started at previous rate. Patient states he is comfortable and pain is decreasing.
[2017-08-08] MEDS ORDERED: HYDROmorphone 1 MG/ML CARPUJECT IVP SCH (21:00)
[2017-08-09] MEDS: PIPERACILLIN/TAZOBACTAM 3.375 GM in SODIUM CHLORIDE 0.9% MINIBAG 100 ML IV SCH ×3 (00:11→11:24)
[2017-08-09] MEDS: LACTATED RINGERS 1,000 ML IV SCH ×2 (05:07→15:55)
[2017-08-09] MEDS: MORPHINE 2 MG/ML SYRINGE IVP PRN ×5 (06:08→21:11)
[2017-08-09] MEDS: PANTOPRAZOLE 40 MG VIAL IVP SCH (06:53)
[2017-08-09] MEDS: SODIUM CHLORIDE FLUSH 0.9% 10 ML SYRINGE IVP SCH ×3 (06:54→15:55)
[2017-08-09] MEDS ORDERED: ROPIVACAINE 0.2% PF 10 ML VIAL ONE (06:58)
--- NOTE | 2017-08-09 07:12 | CONSULTATION NOTE ---
Referring Provider Name of Referring Provider:: Denilson Carl CRNA Consult Date: 08/09/17 (Called to evaluate effectiveness of MEDICAL SERVICE REPRESENTATIVE cont epidural. Currently running .125% bupivicaine with 2 mcg/ml fentanyl, increased to 10 ml/ hr. Also bolused with 5 ml 0.2% Naropin. Will evaluate in one hour effectiveness of increase.) History - Past Medical History Cardiovascular: reports: None Respiratory: reports: None Neuro: reports: Other GI: reports: GERD, Pancreatitis : reports: None HEENT: reports: Chronic vision loss, Other Psych: reports: Other Musculoskeletal: reports: Chronic back pain Derm: reports: None MRSA Hx?: No - Past Surgical History General: reports: Cholecystectomy, Colonoscopy Ortho: reports: Rotator cuff repair HEENT: reports: Other - POLST Patient has POLST: No Meds/Allgy - Home Medications Home Medications: Ambulatory Orders Medication Instructions Recorded Confirmed QUEtiapine [SEROquel] 50 mg ORAL QPM 08/14/14 08/08/17 HYDROcod/ACETAM 5/325 [[place] 5/325] 1 - 2 ea PO Q4H PRN 10/11/15 08/08/17 Famotidine [Pepcid] 20 mg PO BID PRN 08/08/17 08/08/17 - Allergies Allergies/Adverse Reactions: Allergies Allergy/AdvReac Type Severity Reaction Status Date / Time Penicillins AdvReac Unknown Rash Verified 03/05/17 13:36 Exam - Vital Signs Vital Signs: Vital Signs x48h Temp Pulse Pulse Resp BP Pulse Ox 08/09/17 05:30 36.7 C 86 16 108/75 98 08/09/17 02:20 36.5 C 93 18 109/71 94 08/09/17 01:15 36.2 C L 66 18 107/64 96 08/09/17 00:10 36.8 C 91 18 121/67 100
--- NOTE | 2017-08-09 08:13 | PROVIDER PROGRESS NOTE ---
Subjective - Prog Note Date Prog Note Date: 08/09/17 Prog Note Time: 08:10 - Subjective Subjective: Epidural was inadvertently removed last night and replaced. Patient was recently seen by anesthesia and epidural increased. He still complains of 8/10 pain. Has not ambulated yet. No flatus. No nausea, no emesis Objective - Vital Signs/Intake & Output Reviewed Vital Signs: Yes Vital Signs: Vital Signs x48h Temp Pulse Pulse Resp BP Pulse Ox 08/09/17 07:45 37.3 C 93 16 105/66 98 08/09/17 05:30 36.7 C 86 16 108/75 98 08/09/17 02:20 36.5 C 93 18 109/71 94 08/09/17 01:15 36.2 C L 66 18 107/64 96 Intake & Output: Intake & Output 08/06/17 08/07/17 08/08/17 08/09/17 23:59 23:59 23:59 23:59 Intake Total 1120 615 Output Total 1315 1032 Balance -195 -417 - Objective General Appearance: positive: No acute distress Respiratory: positive: Breath sounds nml Cardiovascular: positive: Regular rate & rhythm Abdomen: positive: Other (prevena dressing and stoma dressing in place. [address] with serous drainage. Abdomen soft and non-distended.) Extremities: positive: No pedal edema Neurologic/Psychiatric: positive: Oriented x3 - Lab Results Other Labs: Lab Results x24hrs 08/09/17 08/08/17 08/08/17 Range/Units 07:45 20:45 16:29 POC Whole Bld Glucose 136 H 122 H 133 H (70 - 100) mg/dL Assessment/Plan - Problem List (1) Surgery follow-up examination Impression: s/p ostomy takedown, lysis of adhesions, colorectal anastomosis, myofacial release and ventral hernia repair POD 1 - Patient is on ERAS protocol but has not ambulated due to pain. He does have chronic pain in addition to his acute pain. 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 Once pain control improved will get patient up ambulating. Continue IV Tylenol - No flatus as of yet. Continue sips of clear liquids. - dressing to remain in place for now. - 24 hours post operative antibiotics. - lovenox for DVT prophylaxis - home meds resumed. - DC bravo - DC IV fluids
[2017-08-09] MEDS: SODIUM CHLORIDE FLUSH 0.9% 10 ML SYRINGE IVP PRN (09:44)
[2017-08-09] MEDS: INSULIN ASPART 300 UNIT/3 ML PEN SUBQ SCH ×4 (10:50→21:03)
[2017-08-09] MEDS: ENOXAPARIN 40 MG/0.4 ML SYRINGE SUBQ SCH (11:24)
[2017-08-09] MEDS: ACETAMINOPHEN 1,000 MG/100 ML 100 ML IV PRN (15:39)
[2017-08-09] MEDS ORDERED: fent/BUPIV 2 MCG/0.125% 250 ML EP PRN (16:24)
[2017-08-09] MEDS: QUEtiapine 25 MG TABLET PO SCH (21:09)
[2017-08-10] MEDS: LACTATED RINGERS 1,000 ML IV SCH ×2 (01:26→20:50)
[2017-08-10] MEDS: MORPHINE 2 MG/ML SYRINGE IVP PRN ×3 (02:52→11:41)
[2017-08-10] MEDS: HYDROmorphone 1 MG/ML CARPUJECT IVP PRN ×3 (05:46→15:36)
[2017-08-10] MEDS: SODIUM CHLORIDE FLUSH 0.9% 10 ML SYRINGE IVP SCH ×3 (05:52→19:31)
[2017-08-10] MEDS: PANTOPRAZOLE 40 MG VIAL IVP SCH (05:53)
[2017-08-10] MEDS: ONDANSETRON 4 MG/2 ML VIAL IVP PRN (06:05)
--- NOTE | 2017-08-10 07:56 | ANESTHESIA POST OP EVALUATION ---
Anesthesia Post Eval - Post Anesthesia Eval CV Function Including HR & BP: positive: Stable Pain Control: positive: Adequate Nausea & Vomiting: positive: Negative Mental Status: positive: Appropriate Anesthesia Complications: positive: Other (Patient had epidural that had become disconnected accidentally and therefore needed to be replaced. The epidural that was replaced on 08/08 was effective for pain however the patient developed leg weakness and urinary retention. On 08/09 the epidural solution was stopped and the patient switched to a parenteral opioid for pain, retention resolved and pain was well managed this am when I saw him. I removed his epidural catheter, tip intact, site clear. He is not due for his next lovenox dose until this afternoon.)
[2017-08-10] MEDS: ENOXAPARIN 40 MG/0.4 ML SYRINGE SUBQ SCH (08:19)
[2017-08-10] MEDS: INSULIN ASPART 300 UNIT/3 ML PEN SUBQ SCH ×4 (08:19→20:43)
[2017-08-10 11:34] LABS: BASOPHILS % (AUTO) 0.3 %; EOSINOPHILS % (AUTO) 0.3 %; LYMPHOCYTES # (AUTO) 0.9 10^3/uL (1.5-3.5); LYMPHOCYTES % (AUTO) 11.6 %; MEAN CORPUSCULAR HEMOGLOBIN 32.1 pg (27.0-31.0); MEAN CORPUSCULAR HGB CONC 34.1 g/dL (32.0-36.0); MEAN CORPUSCULAR VOLUME 94.1 fL (80.0-94.0); MEAN PLATELET VOLUME 7.6 fL (7.4-11.4); MONOCYTES # (AUTO) 0.5 10^3/uL (0.0-1.0); MONOCYTES % (AUTO) 6.7 %; NEUTROPHILS # (AUTO) 6.6 10^3/uL (1.5-6.6); NEUTROPHILS % (AUTO) 81.1 %; PLT - PLATELET COUNT 162 10^3/uL (130-450); RED BLOOD COUNT 3.41 10^6/uL (4.70-6.10); RED CELL DISTRIBUTION WIDTH 15.1 % (12.0-15.0); WHITE BLOOD COUNT 8.1 x10^3/uL (4.8-10.8)
--- NOTE | 2017-08-10 11:43 | PROVIDER PROGRESS NOTE ---
Subjective - General Admit Date: 08/08/17 Procedure Date: 08/08/17 Post Op Days: 2 Procedure Performed: ostomy reversal, repair of ventral hernia with myofacial release and mesh - Review of Systems Wound/Incisions: positive: Healing well, Dressing dry and intact Drain Type: VENICE x 2 - superficial: 100, deep 60 - serosanguinous General: negative: Fever Gastrointestinal: positive: Abdominal pain. negative: Nausea, Vomiting, Flatus Genitourinary: negative: No symptoms Psychiatric: negative: No symptoms - Other Other Information/Narrative: Patient had numbness in bilateral legs yesterday: epidural removed and dilaudid and morphine started. Numbness has resolved. Pain control improved. He has been ambulating in room but not in hallway. Merchant DCed and patient voiding. Tolerating clears without nausea or bloating. Slightly tachycardic - likely related to pain. Afebrile, normal WBC. HH slightly decreased. Objective - Patient Data Reviewed Vital Signs: Yes Vital Signs: Vital Signs x48h Temp Pulse Resp BP Pulse Ox 08/10/17 07:27 36.8 C 108 H 19 136/88 H 95 08/10/17 05:56 37.2 C 108 H 18 109/67 97 Weight: Weight 08/08/17 08/09/17 08/10/17 23:59 23:59 23:59 Weight (kg) 74 kg Intake & Output: Intake and Output Totals x24h 08/08/17 08/09/17 08/10/17 23:59 23:59 23:59 Intake Total 1120 2715 1673.333 Output Total 1315 1912 3095 Balance -195 803 -1421.667 - Lab Results Lab Results: 08/10/17 11:30 Other Lab Results: Lab Results x24hrs 08/10/17 08/10/17 08/09/17 Range/Units 11:30 07:28 20:25 WBC 8.1 (4.8-10.8) x10^3/uL RBC 3.41 L (4.70-6.10) 10^6/uL Hgb 11.0 L (14.0-18.0) g/dL Hct 32.1 L (42.0-52.0) % MCV 94.1 H (80.0-94.0) fL MCH 32.1 H (27.0-31.0) pg MCHC 34.1 (32.0-36.0) g/dL RDW 15.1 H (12.0-15.0) % Plt Count 162 (130-450) 10^3/uL MPV 7.6 (7.4-11.4) fL Neut # 6.6 (1.5-6.6) 10^3/uL Lymph # 0.9 L (1.5-3.5) 10^3/uL Iron # 0.5 (0.0-1.0) 10^3/uL Eos # 0.0 (0.0-0.7) 10^3/uL Baso # 0.0 (0.0-0.1) 10^3/uL Absolute Nucleated RBC 0.01 x10^3/uL Nucleated RBC % 0.1 /100WBC POC Whole Bld Glucose 109 H 110 H (70 - 100) mg/dL 08/09/17 Range/Units 16:25 WBC (4.8-10.8) x10^3/uL RBC (4.70-6.10) 10^6/uL Hgb (14.0-18.0) g/dL Hct (42.0-52.0) % MCV (80.0-94.0) fL MCH (27.0-31.0) pg MCHC (32.0-36.0) g/dL RDW (12.0-15.0) % Plt Count (130-450) 10^3/uL MPV (7.4-11.4) fL Neut # (1.5-6.6) 10^3/uL Lymph # (1.5-3.5) 10^3/uL Iron # (0.0-1.0) 10^3/uL Eos # (0.0-0.7) 10^3/uL Baso # (0.0-0.1) 10^3/uL Absolute Nucleated RBC x10^3/uL Nucleated RBC % /100WBC POC Whole Bld Glucose 125 H (70 - 100) mg/dL - Current Medications Current Medications: Current Medications Generic Name Dose Route Start Last Admin Trade Name Freq PRN Reason Stop Dose Admin Enoxaparin Sodium 40 mg 08/09/17 09:00 08/10/17 08:19 Lovenox SUBQ Not Given DAILY [facility] Hydromorphone HCl 1 mg 08/10/17 02:59 08/10/17 09:31 Dilaudid Inj Carp IVP 1 mg Q2HR PRN Administration PAIN Lactated Ringer's 1,000 mls @ 50 mls/hr 08/08/17 14:00 08/10/17 06:12 Lr IV 50 mls/hr .Q20H DESMOND Infusion Acetaminophen 100 mls @ 400 mls/hr 08/08/17 13:15 08/09/17 15:56 Ofirmev IV 08/10/17 13:14 Infused Q6HR PRN Infusion PAIN Insulin Aspart 1 - 5 unit 08/08/17 17:00 08/10/17 08:19 Novolog SUBQ Not Given 0800,1200,1700,2100 [facility] Protocol Morphine Sulfate 2 mg 08/08/17 13:12 08/10/17 07:47 Morphine IVP 2 mg Q2H PRN Administration PAIN Ondansetron HCl 4 mg 08/08/17 16:04 08/10/17 06:05 Zofran Inj IVP 4 mg Q6H PRN Administration Nausea / Vomiting Pantoprazole Sodium 40 mg 08/09/17 07:00 08/10/17 05:53 Protonix IVP 40 mg QDAC DESMOND Administration Quetiapine Fumarate 50 mg 08/08/17 21:00 08/09/17 21:09 Seroquel PO 50 mg QPM DESMOND Administration Sodium Chloride 10 ml 08/08/17 17:00 08/10/17 08:19 Normal Saline Flush 0.9% IVP Not Given 0100,0900,1700 [facility] Sodium Chloride 10 ml 08/08/17 13:13 08/09/17 09:44 Normal Saline Flush 0.9% IVP 10 ml PRN PRN Administration NEEDED PER PROVIDER ORDERS - Physical Exam Wound/Incisions: positive: Healing well, Dressing dry and intact, Other (stoma packing removed and replaced with dry dressing. Prevena in place to suction) General Appearance: positive: No acute distress Respiratory: positive: No respiratory distress, Breath sounds nml Cardiovascular: positive: Tachycardia Abdomen: positive: Other (soft and non-distended. Drains and prevena vac in place. stoma incision healing well.) Extremities: positive: No pedal edema Neurologic/Psychiatric: positive: Oriented x3 Impression/Plan - Problem List Problem List: s/p ostomy reversal and ventral hernia repair with myofacial release and mesh placement POD 2 - will start oral pain meds and attempt to wean IV pain meds. - encouraged ambulation - awaiting bowel function. Patient advanced to soft diet but advised to take it slow. - antibiotics DCed - ostomy packing removed. Prevena vac to stay in place until Sunday or Sunday depending on discharge. Ostomy dressing should be changed daily by nursing - Drain output decreasing. Will lilkely remove prior to discharge if drainage < 40 cc in 24 hours - Patient instructed to keep abdominal binder in place while ambulating for 4 weeks post operatively. - Patient will be stable for discharge home once he is ambulating without assistance, pain is controlled on oral pain medications, he is tolerating a diet and passing flatus. I do not anticipate his hospital length of stay to exceed 96 hours.
--- NOTE | 2017-08-10 11:55 | Discharge Plan ---
Discharge Plan Disposition: 01 Home, Self Care Diet: Soft Activity Restrictions: nothing strenuous Shower Restrictions: Yes (no tub bathing 1 week. OK to shower ) Driving Restrictions: Yes (not while on narcotics) Weight Bearing: Full Weight Instruction Topics: Colorectal Surg Recovery, Hernia Repair Open Dc Additional Instructions or Follow Up instructions: Wash your hands prior to touching your incisions. Change your ostomy dressing daily until there is no drainage present Shower daily with soap and water. Pat the incisions dry If you see redness around your incisions or drainage from your incisions or develop fevers, chills, nausea, vomiting or worsening abdominal pain contact your surgeon's office immediately No strenuous activity or heavy lifting for 6 weeks. You are encouraged to walk short distances frequently. Call Dr. Woodward's office for an appointment 1 week after discharge for post operative evaluation. Wear your abdominal binder while ambulating for 4 weeks post operatively No Smoking: If you smoke, Please STOP! Call for help. Follow-up with: GANESH WOODWARD MD [Provider Admit Priv/Credential] - 1 Week
[2017-08-10] MEDS ORDERED: ACETAMINOPHEN 325 MG TABLET PO PRN (11:56)
[2017-08-10] MEDS: DOCUSATE SODIUM 100 MG CAPSULE PO SCH ×2 (13:29→20:49)
[2017-08-10] MEDS: oxyCOD/ACETAMIN 5 MG/325 MG TABLET PO PRN ×2 (19:31→23:44)
[2017-08-10] MEDS: QUEtiapine 25 MG TABLET PO SCH (20:49)
[2017-08-11] MEDS: SODIUM CHLORIDE FLUSH 0.9% 10 ML SYRINGE IVP SCH ×3 (02:25→16:14)
[2017-08-11] MEDS: oxyCOD/ACETAMIN 5 MG/325 MG TABLET PO PRN ×3 (03:17→11:07)
[2017-08-11] MEDS: PANTOPRAZOLE 40 MG VIAL IVP SCH (07:56)
[2017-08-11] MEDS: DOCUSATE SODIUM 100 MG CAPSULE PO SCH ×2 (08:00→20:30)
[2017-08-11] MEDS: ENOXAPARIN 40 MG/0.4 ML SYRINGE SUBQ SCH (08:00)
[2017-08-11] MEDS: INSULIN ASPART 300 UNIT/3 ML PEN SUBQ SCH ×4 (08:37→20:31)
[2017-08-11] MEDS: LACTATED RINGERS 1,000 ML IV SCH ×2 (12:55→14:33)
[2017-08-11] MEDS: HYDROmorphone 1 MG/ML CARPUJECT IVP PRN ×4 (13:38→20:35)
[2017-08-11] MEDS: QUEtiapine 25 MG TABLET PO SCH (20:30)
--- NOTE | 2017-08-11 21:47 | PROVIDER PROGRESS NOTE ---
Subjective - General Admit Date: 08/08/17 Procedure Date: 08/08/17 Post Op Days: 3 Procedure Performed: ostomy reversal, repair of ventral hernia with myofacial release and mesh - Review of Systems Wound/Incisions: positive: Healing well, Dressing dry and intact, Other (stoma packing removed and replaced with dry dressing. Prevena in place to suction) Drain Type: VENICE x 2 - superficial: 100, deep 60 - serosanguinous General: negative: Fever Gastrointestinal: positive: Abdominal pain, Flatus, Other (abdominal bloating). negative: Nausea, Vomiting Genitourinary: negative: No symptoms Psychiatric: negative: No symptoms Objective - Patient Data Vital Signs: Vital Signs x48h Temp Pulse Resp BP Pulse Ox 08/11/17 20:34 36.8 C 105 H 19 155/96 H 95 08/11/17 16:03 37.0 C 104 H 18 146/104 H 95 08/11/17 14:12 37.0 C 92 20 143/88 H 96 Intake & Output: Intake and Output Totals x24h 08/09/17 08/10/17 08/11/17 23:59 23:59 23:59 Intake Total 2715 4505.833 2414.167 Output Total 1912 5460 2845 Balance 803 -954.167 -430.833 - Lab Results Lab Results: 08/10/17 11:30 Other Lab Results: Lab Results x24hrs 08/11/17 08/11/17 08/11/17 Range/Units 20:30 16:53 11:43 POC Whole Bld Glucose 93 95 128 H (70 - 100) mg/dL 08/11/17 Range/Units 07:35 POC Whole Bld Glucose 103 H (70 - 100) mg/dL - Current Medications Current Medications: Current Medications Generic Name Dose Route Start Last Admin Trade Name Freq PRN Reason Stop Dose Admin Docusate Sodium 100 mg 08/10/17 12:00 08/11/17 20:30 Colace 100mg Capsule PO 100 mg BID DESMOND Administration Enoxaparin Sodium 40 mg 08/09/17 09:00 08/11/17 08:00 Lovenox SUBQ 40 mg DAILY DESMOND Administration Hydromorphone HCl 1 mg 08/10/17 02:59 08/11/17 20:35 Dilaudid Inj Carp IVP 1 mg Q2HR PRN Administration PAIN Lactated Ringer's 1,000 mls @ 70 mls/hr 08/11/17 12:48 08/11/17 19:03 Lr IV 70 mls/hr .[id number] DESMOND Infusion Insulin Aspart 1 - 5 unit 08/08/17 17:00 08/11/17 20:31 Novolog SUBQ Not Given 0800,1200,1700,2100 [facility] Protocol Metoclopramide HCl 10 mg 08/08/17 16:04 08/11/17 12:36 Reglan Inj IVP 10 mg Q6H PRN Administration Nausea / Vomiting Morphine Sulfate 2 mg 08/08/17 13:12 08/10/17 11:41 Morphine IVP 2 mg Q2H PRN Administration PAIN Ondansetron HCl 4 mg 08/08/17 16:04 08/10/17 06:05 Zofran Inj IVP 4 mg Q6H PRN Administration Nausea / Vomiting Pantoprazole Sodium 40 mg 08/09/17 07:00 08/11/17 07:56 Protonix IVP 40 mg QDAC DESMOND Administration Quetiapine Fumarate 50 mg 08/08/17 21:00 08/11/17 20:30 Seroquel PO 50 mg QPM DESMOND Administration Sodium Chloride 10 ml 08/08/17 17:00 08/11/17 16:14 Normal Saline Flush 0.9% IVP 10 ml 0100,0900,1700 DESMOND Administration Sodium Chloride 10 ml 08/08/17 13:13 08/09/17 09:44 Normal Saline Flush 0.9% IVP 10 ml PRN PRN Administration NEEDED PER PROVIDER ORDERS - Physical Exam Respiratory: positive: No respiratory distress Cardiovascular: positive: Regular rate & rhythm Abdomen: positive: Other (wound vac in place.) Impression/Plan - Problem List Problem List: s/p colostomy takedown, ventral hernia repair pOD#3. Some ileus still present. ambulate Recommend liquids until bowel function improves.
[2017-08-12] MEDS: HYDROmorphone 1 MG/ML CARPUJECT IVP PRN ×7 (00:18→20:20)
[2017-08-12] MEDS ORDERED: CALAMINE/ZINC OXIDE 118 ML BOTTLE TOP PRN (00:33)
[2017-08-12] MEDS: SODIUM CHLORIDE FLUSH 0.9% 10 ML SYRINGE IVP SCH ×3 (00:37→16:12)
[2017-08-12] MEDS: LACTATED RINGERS 1,000 ML IV SCH ×2 (05:57→14:40)
[2017-08-12] MEDS: SODIUM CHLORIDE FLUSH 0.9% 10 ML SYRINGE IVP PRN ×2 (06:01→09:21)
[2017-08-12] MEDS: PANTOPRAZOLE 40 MG VIAL IVP SCH (06:01)
[2017-08-12] MEDS: INSULIN ASPART 300 UNIT/3 ML PEN SUBQ SCH ×4 (08:03→22:09)
[2017-08-12] MEDS: DOCUSATE SODIUM 100 MG CAPSULE PO SCH ×2 (08:36→22:08)
[2017-08-12] MEDS: ENOXAPARIN 40 MG/0.4 ML SYRINGE SUBQ SCH (08:36)
[2017-08-12] MEDS ORDERED: HYDROcod/ACETAM 5/325 MG TABLET PO PRN (12:24)
[2017-08-12] MEDS: HYDROcod/ACETAM 5/325 MG TABLET PO PRN ×3 (14:10→22:08)
--- NOTE | 2017-08-12 21:36 | PROVIDER PROGRESS NOTE ---
Subjective - General Admit Date: 08/08/17 Procedure Date: 08/08/17 Post Op Days: 4 Procedure Performed: ostomy reversal, repair of ventral hernia with myofacial release and mesh - Review of Systems Wound/Incisions: positive: Healing well, Dressing dry and intact, Other (stoma packing removed and replaced with dry dressing. Prevena in place to suction) Drain Type: VENICE removed General: negative: Fever Gastrointestinal: positive: Abdominal pain, Flatus, Other (abdominal bloating). negative: Nausea, Vomiting Genitourinary: negative: No symptoms Psychiatric: negative: No symptoms Objective - Patient Data Vital Signs: Vital Signs x48h Temp Pulse Resp BP Pulse Ox 08/12/17 20:17 37.1 C 87 19 155/89 H 99 08/12/17 16:11 36.6 C 93 18 121/90 H 99 08/12/17 14:02 36.9 C 94 19 142/79 H 96 Intake & Output: Intake and Output Totals x24h 08/10/17 08/11/17 08/12/17 23:59 23:59 23:59 Intake Total 4505.833 2875.834 2283.500 Output Total 5460 3445 1125 Balance -954.167 -326.327 0430.500 - Lab Results Lab Results: 08/10/17 11:30 Other Lab Results: Lab Results x24hrs 08/12/17 08/12/17 08/12/17 Range/Units 20:44 16:52 11:41 POC Whole Bld Glucose 117 H 122 H 96 (70 - 100) mg/dL 08/12/17 Range/Units 07:29 POC Whole Bld Glucose 104 H (70 - 100) mg/dL - Current Medications Current Medications: Current Medications Generic Name Dose Route Start Last Admin Trade Name Freq PRN Reason Stop Dose Admin Acetaminophen 650 mg 08/10/17 11:56 08/12/17 07:55 Tylenol PO 650 mg Q4HR PRN Administration Pain or Fever > 38C (100.4F) Acetaminophen/Hydrocodone Bitart 2 tab 08/12/17 12:24 08/12/17 18:03 [place] 5/325 PO 2 tab Q4HR PRN Administration PAIN Docusate Sodium 100 mg 08/10/17 12:00 08/12/17 08:36 Colace 100mg Capsule PO Not Given BID [facility] Enoxaparin Sodium 40 mg 08/09/17 09:00 08/12/17 08:36 Lovenox SUBQ 40 mg DAILY [facility] Administration Hydromorphone HCl 1 mg 08/10/17 02:59 08/12/17 20:20 Dilaudid Inj Carp IVP 1 mg Q2HR PRN Administration PAIN Lactated Ringer's 1,000 mls @ 70 mls/hr 08/11/17 12:48 08/12/17 14:40 Lr IV 70 mls/hr .[id number] [facility] Administration Insulin Aspart 1 - 5 unit 08/08/17 17:00 08/12/17 16:59 Novolog SUBQ Not Given 0800,1200,1700,2100 [facility] Protocol Metoclopramide HCl 10 mg 08/08/17 16:04 08/11/17 12:36 Reglan Inj IVP 10 mg Q6H PRN Administration Nausea / Vomiting Morphine Sulfate 2 mg 08/08/17 13:12 08/10/17 11:41 Morphine IVP 2 mg Q2H PRN Administration PAIN Ondansetron HCl 4 mg 08/08/17 16:04 08/10/17 06:05 Zofran Inj IVP 4 mg Q6H PRN Administration Nausea / Vomiting Pantoprazole Sodium 40 mg 08/09/17 07:00 08/12/17 06:01 Protonix IVP 40 mg QDAC [facility] Administration Quetiapine Fumarate 50 mg 08/08/17 21:00 08/11/17 20:30 Seroquel PO 50 mg QPM DESMOND Administration Sodium Chloride 10 ml 08/08/17 17:00 08/12/17 16:12 Normal Saline Flush 0.9% IVP 10 ml 0100,0900,1700 [facility] Administration Sodium Chloride 10 ml 08/08/17 13:13 08/12/17 09:21 Normal Saline Flush 0.9% IVP 10 ml PRN PRN Administration NEEDED PER PROVIDER ORDERS - Physical Exam Respiratory: positive: No respiratory distress Cardiovascular: positive: Regular rate & rhythm Abdomen: positive: Other (incision clean without evidence of infection) Impression/Plan - Problem List Problem List: Having return of bowel function with less distension. He still feels that he is only able to tolerated liquids at this time. Ambulate. Advance diet as tolerated.
[2017-08-12] MEDS: QUEtiapine 25 MG TABLET PO SCH (22:08)
[2017-08-13] MEDS: SODIUM CHLORIDE FLUSH 0.9% 10 ML SYRINGE IVP SCH ×2 (00:56→09:22)
[2017-08-13] MEDS: HYDROcod/ACETAM 5/325 MG TABLET PO PRN ×2 (05:02→09:21)
[2017-08-13] MEDS: LACTATED RINGERS 1,000 ML IV SCH (05:09)
[2017-08-13] MEDS: PANTOPRAZOLE 40 MG VIAL IVP SCH (06:28)
[2017-08-13 08:45] VITALS: BP 141/82
--- NOTE | 2017-08-13 08:59 | Discharge Plan ---
Discharge Plan Disposition: Home, Self Care Condition: Good Prescriptions: HYDROcod/ACETAM 5/325 [[place] 5/325] 1 - 2 tab PO Q4HR PRN #40 tablet PRN Reason: Pain Diet: Regular Activity Restrictions: nothing strenuous Shower Restrictions: No (no tub bathing 1 week. OK to shower in am) Driving Restrictions: Yes (not while on narcotics) Weight Bearing: Full Weight Instruction Topics: Hernia Repair Open Dc, Colorectal Surg Recovery Additional Instructions or Follow Up instructions: Wash your hands prior to touching your incisions. Change your ostomy dressing daily until there is no drainage present Shower daily with soap and water. Pat the incisions dry If you see redness around your incisions or drainage from your incisions or develop fevers, chills, nausea, vomiting or worsening abdominal pain contact your surgeon's office immediately No strenuous activity or heavy lifting for 6 weeks. You are encouraged to walk short distances frequently. Call Dr. Woodward's office for an appointment 1 week after discharge for post operative evaluation. Wear your abdominal binder while ambulating for 4 weeks post operatively Colace 100mg 2 tablets twice a day. Hold for loose bowel movements No Smoking: If you smoke, Please STOP! Call for help. Follow-up with: GANESH WOODWARD MD [Provider Admit Priv/Credential] - 1 Week Kwadwo De Souza MD [Provider Admit Priv/Credential] - 08/16/17 (DR. De Souza )
[2017-08-13] MEDS: INSULIN ASPART 300 UNIT/3 ML PEN SUBQ SCH (09:07)
[2017-08-13] MEDS: ENOXAPARIN 40 MG/0.4 ML SYRINGE SUBQ SCH (09:22)
[2017-08-13] MEDS: DOCUSATE SODIUM 100 MG CAPSULE PO SCH (09:22)
--- NOTE | 2017-08-23 01:46 | DISCHARGE SUMMARY ---
Physician: Kwadwo De Souza MD DATE OF ADMISSION: 08/08/2017 DATE OF DISCHARGE: 08/13/2017 REASON FOR ADMISSION: Repair of ventral incisional hernia and takedown of colostomy. INDICATIONS FOR PROCEDURE: Patient is a 52-year-old male who had presented with perforated diverticulitis at an outside facility. He had underwent a Nazario procedure. He had developed a wound infection and the wound had been opened with wet-to-dry dressing changes. He now has developed a hernia at the midline incision. He would like to have his colostomy taken down, and perform a colorectal anastomosis if possible as well as repair his ventral hernia. PRINCIPAL DIAGNOSIS: History of perforated diverticulitis, status post Nazario procedure. OTHER MEDICAL PROBLEMS 1. Ventral incisional hernia. 2. History of alcohol dependency. PROCEDURE: Patient underwent exploratory laparotomy, takedown of colostomy with colorectal anastomosis, and repair of ventral incisional hernia with mesh on 08/08/[address] Woodward. HOSPITAL COURSE: Patient was admitted to the hospital and underwent the above procedure. He tolerated it well and was transferred to the floor in stable condition. He had an epidural placed, and this was watched for 24 hours. However, he did not have adequate pain control and it was removed and he was started on the [employer]LEMENT[employer] MANA[employer] pump, which worked well in controlling his pain. He did develop a postoperative ileus, not tolerating liquids until approximately the postoperative day 3. He was then started on liquids and then advanced to a regular diet, which he was tolerating at discharge. His abdominal incisions remained clean without any evidence of infection. He was up ambulating, wearing a binder without much problems on postoperative day 3. He was then discharged home on postoperative day 4, tolerating a regular diet , having no evidence of wound infection, and ambulating without problems, tolerating oral pain medication. DISCHARGE PROGRAM: Patient will be discharged home. Follow up in Surgical Clinic in 1 week. Regular diet. Ambulate with no heavy lifting over 15 pounds for 2 months. May shower. He is to resume his prehospitalization medications, in addition Percocet 1-2 p.o. q.4-6 hours p.r.n. pain. [facility]: [facility]23/2017 01:[facility]
== END 2017-08-13 10:45 | disposition home or self-care (01) | DRG 331 ==
LOC: MS3 05:55
PROVIDERS: ADMIT Surgery; ATTEND Surgery
PROC: 0WUF0JZ Supplement Abdominal Wall with Synthetic Substitute, Open Approach (ICD-10-PCS; principal; 2017-08-08 07:30)
PROC: 0DBN0ZZ Excision of Sigmoid Colon, Open Approach (ICD-10-PCS; 2017-08-08 07:30)
DX: K43.2 Incisional hernia without obstruction or gangrene (principal); Z43.3 Encounter for attention to colostomy; F10.21 Alcohol dependence, in remission; F41.9 Anxiety disorder, unspecified; G89.29 Other chronic pain; M54.9 Dorsalgia, unspecified; F17.210 Nicotine dependence, cigarettes, uncomplicated; K21.9 Gastro-esophageal reflux disease without esophagitis; Z79.891 Long term (current) use of opiate analgesic; Z79.899 Other long term (current) drug therapy; Z87.19 Personal history of other diseases of the digestive system
CPT/HCPCS: 36415; 85025; 88304; 88307

== ENCOUNTER 2017-10-13 13:29 | Outpatient (CLI) | payer MEDICARE, MEDICAID | END 2017-10-13 13:30 | disposition critical access hospital (66) | LOC: EMS 13:29 | PROVIDERS: ATTEND Surgery | DX: R07.9 Chest pain, unspecified (principal); R06.02 Shortness of breath | CPT/HCPCS: A0425; A0427 ==

== ENCOUNTER 2017-10-13 13:53 | Emergency (ER) | payer MEDICARE, MEDICAID ==
[2017-10-13] MEDS ORDERED: MAG HYDROX/AL HYDROX/SIMETH 30 ML UDC PO STA (14:25)
[2017-10-13] MEDS ORDERED: FAMOTIDINE 20 MG TABLET PO STA (14:25)
[2017-10-13] MEDS ORDERED: SUCRALFATE 1 GM/10 ML UDC PO STA (14:25)
[2017-10-13] MEDS ORDERED: LIDOCAINE VISCOUS 2% 15 ML UDC MM STA (14:25)
--- NOTE | 2017-10-13 14:28 | ED Physician Documentation ---
PD HPI CHEST PAIN - Stated complaint Stated Complaint: CP - History obtained from History obtained from: Patient, EMS - History of Present Illness Timing - onset: How many days ago (3) Timing - onset during: Rest Timing - duration: Days (3) Timing - details: Gradual onset, Constant Pain level max: 6 Pain level now: 5 Quality: Pressure, Tightness, Pain Location: Substernal Radiation: Other (non-radiating) Improved by: Other (nothing) Worsened by: Eating, Other (aspirin) Associated symptoms: Nausea. No: Shortness of air, Diaphoresis, Vomiting, Feeling faint / dizzy, General Weakness, Palpitations, Cough - Additional information Additional information: States he is currently drinking about a 12 pack of beer per day. Does not want help quitting or to go to detox. Review of Systems Ten Systems: 10 systems reviewed and negative Constitutional: denies: Fever, Chills Ears: denies: Ear pain Nose: denies: Rhinorrhea / runny nose, Congestion Throat: denies: Sore throat Respiratory: reports: Cough GI: denies: Nausea, Vomiting, Diarrhea Skin: denies: Rash Musculoskeletal: denies: Neck pain, Back pain Neurologic: denies: Headache PD PAST MEDICAL HISTORY - Past Medical History Past Medical History: Yes GI: GERD, Pancreatitis Psych: Other Musculoskeletal: Chronic back pain - Past Surgical History Past Surgical History: Yes General: Cholecystectomy, Colonoscopy Ortho: Rotator cuff repair HEENT: Other - Present Medications Home Medications: Ambulatory Orders Medication Instructions Recorded Confirmed QUEtiapine [SEROquel] 50 mg ORAL QPM 08/14/14 08/08/17 HYDROcod/ACETAM 5/325 [[place] 5/325] 1 - 2 ea PO Q4H PRN 10/11/15 08/08/17 Famotidine [Pepcid] 20 mg PO BID PRN 08/08/17 08/08/17 HYDROcod/ACETAM 5/325 [[place] 5/325] 1 - 2 tab PO Q4HR PRN #40 tablet 08/13/17 Famotidine [Pepcid] 20 mg PO BID #60 tablet 10/13/17 Omeprazole [PriLOSEC] 20 mg PO DAILY #30 capsule 10/13/17 Sucralfate [Carafate] 1 gm PO ACHS #60 tablet 10/13/17 - Allergies Allergies/Adverse Reactions: Allergies Allergy/AdvReac Type Severity Reaction Status Date / Time Penicillins AdvReac Unknown Rash Verified 10/13/17 14:27 - Living Situation Living Situation: reports: With family Living Arrangement: reports: At home - Social History Does the pt smoke?: No Smoking Status: Never smoker Does the pt drink ETOH?: Yes ETOH Use: Beer Does the pt have substance abuse?: No - Family History Family history: reports: Non contributory - Immunizations Immunizations are current?: Yes - POLST Patient has POLST: No PD ED PE NORMAL - Vitals Vital signs reviewed: Yes - General General: Alert and oriented X 3, No acute distress - HEENT HEENT: Moist mucous membranes - Neck Neck: Supple, no meningeal sign - Cardiac Cardiac: RRR, Strong equal pulses - Respiratory Respiratory: No respiratory distress, Clear bilaterally - Abdomen Abdomen: Soft, Non distended, Other (TTP epigastric without peritoneal signs) - Derm Derm: Warm and dry - Extremities Extremities: No edema - Neuro Neuro: Alert and oriented X 3 - Psych Psych: Normal mood, Normal affect Results - Vitals Vitals: Vital Signs - 24 hr 10/13/17 10/13/17 14:03 14:22 Temperature 36.5 C Heart Rate 74 70 Respiratory 14 16 Rate Blood Pressure 126/81 H 111/74 O2 Saturation 97 98 Oxygen O2 Source Room air - EKG (time done) 1413 Rate: Rate (enter#) (76) Rhythm: NSR [place]: Normal Intervals: Normal [place] QRS: Normal Ischemia: Normal ST segments - Labs Labs: Laboratory Tests 10/13/17 10/13/17 10/13/17 14:28 14:28 14:28 WBC 3.7 L RBC 4.06 L Hgb 13.9 L Hct 41.4 L MCV 102.1 H MCH 34.2 H MCHC 33.5 RDW 13.2 Plt Count 91 L MPV 8.5 Neut # (Auto) 1.9 Lymph # (Auto) 1.4 L [place] # (Auto) 0.3 Eos # (Auto) 0.1 Baso # (Auto) 0.0 Absolute Nucleated RBC 0.00 Nucleated RBC % 0.0 Sodium 140 Potassium 3.9 Chloride 99 L Carbon Dioxide 26 Anion Gap 15.0 H BUN < 5 L Creatinine 0.6 Estimated GFR (MDRD) 141 Glucose 105 H Calcium 8.7 Total Bilirubin 0.4 AST 156 H ALT 53 Alkaline Phosphatase 79 Troponin I < 0.04 Total Protein 7.5 Albumin 4.4 Globulin 3.1 Albumin/Globulin Ratio 1.4 Lipase 36 - Rads (name of study) cxr Radiology: Prelim report reviewed, EMP read contemporaneously, See rad report ( normal) PD MEDICAL DECISION MAKING - ED course Complexity details: reviewed results, re-evaluated patient, considered differential (No ST elevation [place], no aortic dissection, no PE, no tension pneumothorax, no aortic aneurysm), d/w patient ED course: Patient is a 52-year-old male who presents to the emergency department with 3 days of continuous chest pain. No acute findings on EKG. Negative troponin. Negative chest x-ray. Symptoms resolved GI cocktail. Appears to be alcoholic gastritis. He is not interested in going to rehab today. He does have a bed in [place] waiting for him and he will follow-up there. He will return if he worsens. Patient counseled regarding signs and symptoms for which I believe and urgent re-evaluation would be necessary. Patient with good understanding of and agreement to plan and is comfortable going home at this time This document was made in part using voice recognition software. While efforts are made to proofread this document, sound alike and grammatical errors may occur. - Sepsis Event Vital Signs: Vital Signs - 24 hr 10/13/17 10/13/17 14:03 14:22 Temperature 36.5 C Heart Rate 74 70 Respiratory 14 16 Rate Blood Pressure 126/81 H 111/74 O2 Saturation 97 98 Oxygen O2 Source Room air Departure - Departure Disposition: 01 Home, Self Care Clinical Impression: Alcohol abuse Chest pain Qualifiers: Chest pain type: unspecified Qualified Code(s): R07.9 - Chest pain, unspecified Gastritis Qualifiers: Gastritis type: alcoholic Chronicity: chronic Gastritis bleeding: without bleeding Qualified Code(s): K29.20 - Alcoholic gastritis without bleeding Condition: Good Instructions: ED Chest Pain Atypical Unkn Cause, ED Gastritis Follow-Up: Jone Kumar MD [Primary Care Provider] - Within 3 Days Prescriptions: Famotidine [Pepcid] 20 mg PO BID #60 tablet Omeprazole [PriLOSEC] 20 mg PO DAILY #30 capsule Sucralfate [Carafate] 1 gm PO ACHS #60 tablet Comments: Make sure to follow up with detox in [place] as scheduled. Return if you worsen. Discharge Date/Time: 10/13/17 15:28
--- NOTE | 2017-10-13 14:36 | XRAY Preliminary Report ---
Exam: XR CHEST 1 VIEW X-RAY IMPRESSION: Negative for an acute cardiopulmonary process. [facility] SITE ID: [id number]
--- NOTE | 2017-10-13 14:36 | XRAY Report ---
EXAM: CHEST RADIOGRAPHY EXAM DATE: 10/13/2017 02:16 PM. CLINICAL HISTORY: Chest pain. COMPARISON: 01/20/2017. TECHNIQUE: 1 view. FINDINGS: Lungs/Pleura: Lungs appear unchanged. There is mild elevation of the right diaphragm. Trachea is midl ine. Mediastinum: Heart size is normal. Other: None. IMPRESSION: Negative for an acute cardiopulmonary process. [facility] Referring Provider Line: [phone] SITE ID: [id number]
[2017-10-13 14:37] LABS: BASOPHILS % (AUTO) 0.9 %; EOSINOPHILS # (AUTO) 0.1 10^3/uL (0.0-0.7); EOSINOPHILS % (AUTO) 3.8 %; HGB - HEMOGLOBIN 13.9 g/dL (14.0-18.0); LYMPHOCYTES # (AUTO) 1.4 10^3/uL (1.5-3.5); LYMPHOCYTES % (AUTO) 36.8 %; MEAN CORPUSCULAR HEMOGLOBIN 34.2 pg (27.0-31.0); MEAN CORPUSCULAR HGB CONC 33.5 g/dL (32.0-36.0); MEAN CORPUSCULAR VOLUME 102.1 fL (80.0-94.0); MEAN PLATELET VOLUME 8.5 fL (7.4-11.4); MONOCYTES # (AUTO) 0.3 10^3/uL (0.0-1.0); NEUTROPHILS # (AUTO) 1.9 10^3/uL (1.5-6.6); NEUTROPHILS % (AUTO) 51.5 %; PLT - PLATELET COUNT 91 10^3/uL (130-450); RED BLOOD COUNT 4.06 10^6/uL (4.70-6.10); RED CELL DISTRIBUTION WIDTH 13.2 % (12.0-15.0); WHITE BLOOD COUNT 3.7 x10^3/uL (4.8-10.8)
[2017-10-13 14:53] LABS: ALBUMIN 4.4 g/dL (3.2-5.5); ALBUMIN/GLOBULIN RATIO 1.4 (1.0-2.2); ALKALINE PHOSPHATASE 79 IU/L (42-121); ALT ALANINE AMINOTRANSFERASE 53 IU/L (10-60); AST ASPARTATE AMINOTRANSFERASE 156 IU/L (10-42); BILIRUBIN,TOTAL 0.4 mg/dL (0.2-1.0); BUN - BLOOD UREA NITROGEN < 5 mg/dL (6-20); CALCIUM 8.7 mg/dL (8.5-10.3); CARBON DIOXIDE - CO2 26 mmol/L (21-32); CHLORIDE 99 mmol/L (101-111); CREATININE 0.6 mg/dL (0.6-1.2); GFR - MDRD 141 (>89); GLUCOSE 105 mg/dL (70-100); LIPASE 36 U/L (22-51); SODIUM 140 mmol/L (135-145); TOTAL PROTEIN 7.5 g/dL (6.7-8.2)
[2017-10-13 15:27] VITALS: BP 111/74
== END 2017-10-13 15:28 | disposition home or self-care (01) ==
LOC: EDUNIT# → ED 13:53
DX: K29.20 Alcoholic gastritis without bleeding (principal); R07.9 Chest pain, unspecified; F10.10 Alcohol abuse, uncomplicated; K21.9 Gastro-esophageal reflux disease without esophagitis
CPT/HCPCS: 36415; 71045; 80053; 83690; 84484; 85025; 93005; 99283; 99284; A9270

== ENCOUNTER 2017-10-14 12:08 | Outpatient (CLI) | payer MEDICARE, MEDICAID | END 2017-10-14 12:09 | disposition critical access hospital (66) | LOC: EMS 12:08 | PROVIDERS: ATTEND Surgery | DX: R42 Dizziness and giddiness (principal); R11.2 Nausea with vomiting, unspecified; R61 Generalized hyperhidrosis; Z72.89 Other problems related to lifestyle | CPT/HCPCS: A0425; A0427 ==

== ENCOUNTER 2017-10-14 12:35 | Observation (INO) | payer MEDICARE, MEDICAID ==
[2017-10-14] MEDS ORDERED: MAGNESIUM SULFATE 2 GRAM 2 GM/50 ML BAG IV STA (13:11)
[2017-10-14] MEDS ORDERED: MULTIVITAMIN 10 ML in SODIUM CHLORIDE 0.9% 1,000 ML IV STA (13:11)
[2017-10-14] MEDS ORDERED: THIAMINE INJ 100 MG, FOLIC ACID INJ 1 MG in SODIUM CHLORIDE 0.9% 100ML 100 ML IV STA (13:11)
[2017-10-14] MEDS ORDERED: PANTOPRAZOLE 40 MG VIAL IVP STA (13:12)
[2017-10-14] MEDS ORDERED: LORazepam 2 MG/ML VIAL IVP STA (13:12)
[2017-10-14] MEDS ORDERED: SODIUM CHLORIDE 0.9% 1,000 ML IV ONE ×2 (13:12)
--- NOTE | 2017-10-14 13:16 | ED Physician Documentation ---
History of Present Illness - Stated complaint Stated Complaint: Syncope - Chief complaint Chief Complaint: General - History obtained from History obtained from: Patient, Family - History of Present Illness Timing: Today Pain level max: 0 Pain level now: 0 Improved by: nothing Worsened by: nothing - Additonal information Additional information: Patient is a longstanding alcoholic who presents with a syncopal event today. States he was walking in the kitchen, felt lightheaded for a second or two and passed out, walking up on the floor. No tongue biting, no urinary incontinence. No neck, back or head pain. States has not passed out before. No chest pain or palpitations. States last drink was today. Patient denies SI to me. Does not have any current suicidal thoughts to me. States he will if he keeps drinking. Review of Systems Ten Systems: 10 systems reviewed and negative Constitutional: denies: Fever, Chills Ears: denies: Ear pain Nose: denies: Rhinorrhea / runny nose, Congestion Throat: denies: Sore throat Cardiac: denies: Chest pain / pressure Respiratory: denies: Cough GI: denies: Nausea, Vomiting, Diarrhea Skin: denies: Rash Musculoskeletal: denies: Neck pain, Back pain Neurologic: denies: Headache PD PAST MEDICAL HISTORY - Past Medical History Past Medical History: Yes GI: GERD, Pancreatitis Psych: Other Musculoskeletal: Chronic back pain - Past Surgical History Past Surgical History: Yes General: Cholecystectomy, Colonoscopy Ortho: Rotator cuff repair HEENT: Other - Present Medications Home Medications: Ambulatory Orders Medication Instructions Recorded Confirmed QUEtiapine [SEROquel] 50 mg ORAL QPM 08/14/14 10/14/17 Aspirin 325 mg PO DAILY 10/14/17 10/14/17 Famotidine [Pepcid] 20 mg PO DAILY 10/14/17 10/14/17 - Allergies Allergies/Adverse Reactions: Allergies Allergy/AdvReac Type Severity Reaction Status Date / Time Penicillins AdvReac Unknown Rash Verified 10/13/17 14:27 - Social History Does the pt smoke?: No Smoking Status: Never smoker Does the pt drink ETOH?: Yes Does the pt have substance abuse?: No - Immunizations Immunizations are current?: Yes - POLST Patient has POLST: No PD ED PE NORMAL - Vitals Vital signs reviewed: Yes - General General: Alert and oriented X 3, Other (shaky, sweaty) - HEENT HEENT: PERRL, Moist mucous membranes - Neck Neck: Supple, no meningeal sign - Cardiac Cardiac: RRR, Strong equal pulses - Respiratory Respiratory: No respiratory distress, Clear bilaterally - Abdomen Abdomen: Soft, Non tender, Non distended - Derm Derm: Warm and dry - Neuro Neuro: Alert and oriented X 3 - Psych Psych: Normal mood, Normal affect Results - Vitals Vitals: Vital Signs - 24 hr 10/14/17 10/14/17 10/14/17 12:34 13:09 14:57 Temperature 35.4 C L Heart Rate 91 79 78 Respiratory 18 18 12 Rate Blood Pressure 152/124 H 129/87 H 124/79 O2 Saturation 100 98 94 Oxygen O2 Source Room air - EKG (time done) 1258 Rate: Rate (enter#) (75) Rhythm: Other (sinus arrhythmia) [place]: Normal QRS: Normal Ischemia: Normal ST segments - Labs Labs: Laboratory Tests 10/14/17 10/14/17 10/14/17 13:36 13:36 13:36 WBC 3.1 L RBC 3.64 L Hgb 12.4 L Hct 37.0 L MCV 101.6 H MCH 34.1 H MCHC 33.5 RDW 12.9 Plt Count 61 L MPV 8.2 Neut # (Auto) 2.3 Lymph # (Auto) 0.5 L [place] # (Auto) 0.2 Eos # (Auto) 0.0 Baso # (Auto) 0.0 Absolute Nucleated RBC 0.00 Nucleated RBC % 0.0 Sodium 133 L Potassium 3.3 L Chloride 98 L Carbon Dioxide 22 Anion Gap 13.0 BUN < 5 L Creatinine 0.6 Estimated GFR (MDRD) 141 Glucose 120 H Calcium 8.0 L Phosphorus 2.7 Magnesium 1.8 Total Bilirubin 0.6 AST 116 H ALT 48 Alkaline Phosphatase 72 Troponin I < 0.04 Total Protein 6.6 L Albumin 3.7 Globulin 2.9 Albumin/Globulin Ratio 1.3 Lipase 29 Ethyl Alcohol 71.5 - Rads (name of study) head CT Radiology: Prelim report reviewed, EMP read contemporaneously, See rad report ( normal) PD MEDICAL DECISION MAKING - ED course Complexity details: reviewed old records, reviewed results, re-evaluated patient , considered differential, d/w patient, d/w family, d/w mental hygiene consultant ED course: Patient is a 52-year-old male who has a long-standing alcoholic. Presents to the emergency department after a syncopal event today with minimal prodrome. Concern for possible cardiac arrhythmia. No acute findings on EKG or telemetry here. We will place him in the hospital for further evaluation and care. Discussed with the hospitalist Dr. Baptiste, who accepts. Patient feels better after Ativan in the emergency department. Dr. Baptiste did request a CT scan be performed before he is admitted. This document was made in part using voice recognition software. While efforts are made to proofread this document, sound alike and grammatical errors may occur. - Sepsis Event Vital Signs: Vital Signs - 24 hr 10/14/17 10/14/17 10/14/17 12:34 13:09 14:57 Temperature 35.4 C L Heart Rate 91 79 78 Respiratory 18 18 12 Rate Blood Pressure 152/124 H 129/87 H 124/79 O2 Saturation 100 98 94 Oxygen O2 Source Room air Departure - Departure Disposition: ED Place in Observation Clinical Impression: Alcohol abuse Syncope Qualifiers: Syncope type: unspecified Qualified Code(s): R55 - Syncope and collapse Condition: Stable Discharge Date/Time: 10/14/17 16:16
[2017-10-14 13:46] LABS: BASOPHILS % (AUTO) 0.5 %; EOSINOPHILS % (AUTO) 1.1 %; HGB - HEMOGLOBIN 12.4 g/dL (14.0-18.0); LYMPHOCYTES # (AUTO) 0.5 10^3/uL (1.5-3.5); MEAN CORPUSCULAR HEMOGLOBIN 34.1 pg (27.0-31.0); MEAN CORPUSCULAR HGB CONC 33.5 g/dL (32.0-36.0); MEAN CORPUSCULAR VOLUME 101.6 fL (80.0-94.0); MEAN PLATELET VOLUME 8.2 fL (7.4-11.4); MONOCYTES # (AUTO) 0.2 10^3/uL (0.0-1.0); MONOCYTES % (AUTO) 7.1 %; NEUTROPHILS # (AUTO) 2.3 10^3/uL (1.5-6.6); NEUTROPHILS % (AUTO) 75.3 %; PLT - PLATELET COUNT 61 10^3/uL (130-450); RED BLOOD COUNT 3.64 10^6/uL (4.70-6.10); RED CELL DISTRIBUTION WIDTH 12.9 % (12.0-15.0); WHITE BLOOD COUNT 3.1 x10^3/uL (4.8-10.8)
[2017-10-14 14:15] LABS: ALBUMIN 3.7 g/dL (3.2-5.5); ALBUMIN/GLOBULIN RATIO 1.3 (1.0-2.2); ALKALINE PHOSPHATASE 72 IU/L (42-121); ALT ALANINE AMINOTRANSFERASE 48 IU/L (10-60); AST ASPARTATE AMINOTRANSFERASE 116 IU/L (10-42); BILIRUBIN,TOTAL 0.6 mg/dL (0.2-1.0); BUN - BLOOD UREA NITROGEN < 5 mg/dL (6-20); CARBON DIOXIDE - CO2 22 mmol/L (21-32); CHLORIDE 98 mmol/L (101-111); CREATININE 0.6 mg/dL (0.6-1.2); GFR - MDRD 141 (>89); GLUCOSE 120 mg/dL (70-100); LIPASE 29 U/L (22-51); MAGNESIUM 1.8 mg/dL (1.7-2.8); PHOSPHORUS 2.7 mg/dL (2.5-4.6); SODIUM 133 mmol/L (135-145); TOTAL PROTEIN 6.6 g/dL (6.7-8.2)
[2017-10-14] MEDS ORDERED: TEMAZEPAM 15 MG CAPSULE PO PRN (15:14)
--- NOTE | 2017-10-14 15:41 | HISTORY & PHYSICAL EXAMINATION ---
Chief Complaint - Chief Complaint Chief Complaint: "I passed out" History of Present Illness - Admitted From Admitted From:: home - History Obtained From History obtained from: Patient, ED physician - History of Present Illness HPI Comment/Other: Mr. Sky Gaffney is a very pleasant 52-year-old gentleman who unfortunately has been dealing with alcoholism for many years. He says he had 2 or 3 beers this morning which is fairly typical for him as he has about 18 a day, and while walking into a room in his house felt lightheaded for moment and then woke up on the floor. The patient denies any trauma to his head and says he does not feel sore anywhere. He was brought to the emergency department where workup was done and was essentially negative. He will be admitted with a diagnosis of syncope and we will place the patient on telemetry, obtain a brain MRI, echocardiogram, and carotid studies, and address any other issues as they arise. History - Past Medical History GI: reports: GERD, Pancreatitis Psych: reports: Other (insomnia, alcoholism) Musculoskeletal: reports: Chronic back pain MRSA Hx?: No - Past Surgical History General: reports: Cholecystectomy, Colonoscopy Ortho: reports: Rotator cuff repair HEENT: reports: Other - Family & Social History Family History: Mother: , Cancer (Mother from breast cancer, father from lymphoma), Father: , Cancer, Sister: Alive and Well, Brother: Alive and Well, Other family: CAD (1 grandfather had heart disease) Living arrangement: At home Living Situation: With spouse/s.o. - Substance History Use: Uses substance without health or social issues: Cannabis Use Issues: Intoxication Abuse: Recurrent use of substance despite neg consequences: Alcohol Abuse Issues: Intoxication Dependence: Experiences withdrawal or developed tolerances: Alcohol - POLST Patient has POLST: No POLST Status: Full Code Meds/Allgy - Home Medications Home Medications: Ambulatory Orders Medication Instructions Recorded Confirmed QUEtiapine [SEROquel] 50 mg ORAL QPM 08/14/14 10/14/17 Aspirin 325 mg PO DAILY 10/14/17 10/14/17 Famotidine [Pepcid] 20 mg PO DAILY 10/14/17 10/14/17 - Allergies Allergies/Adverse Reactions: Allergies Allergy/AdvReac Type Severity Reaction Status Date / Time Penicillins AdvReac Unknown Rash Verified 06/09/18 14:27 Review of Systems - Constitutional Constitutional: reports: Weakness. denies: Fatigue, Fever, Chills, Night sweats - Eyes Eyes: denies: Pain, Irritation, Amaurosis, Blurred vision, Vision loss, Dipolpia - Ears, Nose & Throat Ears, Nose & Throat: denies: Ear pain, Hearing loss, Hearing aids, Tinnitus, Vertigo, Nasal pain, Nasal discharge, Nosebleeds - Cardiovascular Cariovascular: reports: Lightheadedness, Syncope. denies: Irregular heart rate , Palpitations, Chest pain, Edema - Respiratory Respiratory: denies: Cough, Sputum production, Wheezing, Snoring, Hemoptysis - Gastrointestinal Gastrointestinal: denies: Abdominal pain, Abdominal distention, Constipation, Diarrhea, Change in bowel habits, Rectal bleeding - Genitourinary Genitourinary: denies: Dysuria, Frequency, Urgency, Hematuria - Musculoskeletal Musculoskeletal: denies: Muscle pain, Back pain, Muscle aches, Stiffness, Muscle weakness - Integumentary Integumentary: denies: Rash, Pruritis, Lesions, Dryness - Neurological Neurological: denies: General weakness, Focal weakness, Headache, Dizziness - Psychiatric Psychiatric: denies: Depression, Anxiety, Suicidal - Endocrine Endocrine: denies: Polyuria, Polydypsia, Polyphagia - Hematologic/Lymphatic Hematologic/Lymphatic: denies: Anemia, Bruising, Petechiae, Lymphadenopathy - All Other Systems All Other Systems: reports: Reviewed and negative Exam - Vital Signs Reviewed Vital Signs: Yes Vital Signs: Vital Signs x48h Temp Pulse Resp BP Pulse Ox 10/14/17 14:57 78 12 124/79 94 10/14/17 12:34 35.4 C L 91 18 152/124 H 100 - Physical Exam General Appearance: positive: No acute distress, Alert, Anxious Eyes Bilateral: positive: Normal inspection, PERRL, EOMI, No lid inflammation, Conjunctivae nml, No scleral icterus ENT: positive: ENT inspection nml, Pharynx nml, No signs of dehydration Neck: positive: Nml inspection, Thyroid nml, No JVD, Trachea midline. negative : Thyromegaly Respiratory: positive: Chest non-tender, No respiratory distress, Breath sounds nml Conclusion/Plan - Problem List (1) Syncope Conclusion/Plan: The patient had been drinking, but not enough to cause intoxication and certainly not enough to call blackout. We will obtain an MRI of his brain, carotid artery studies, and an echocardiogram in the morning and monitor him closely overnight on telemetry. Qualifiers: Syncope type: unspecified Qualified Code(s): R55 - Syncope and collapse (2) Alcohol abuse Conclusion/Plan: The patient has requested help for his alcoholism and has requested options for rehab following this hospitalization. We will coordinate with social workers to get the patient all his options. (3) Insomnia Conclusion/Plan: We will continue the patient on his Seroquel, however it is likely that his insomnia can be better controlled once he stops drinking. (4) Gastroesophageal reflux disease Conclusion/Plan: We will continue the patient on his home dosing of famotidine. - Lab Results Lab results reviewed: Yes Fish Bones: 10/14/17 13:36 10/14/17 13:36 - Diagnostic Imaging Results Diagnostic Imaging Results: positive: Final report reviewed Diagnostic Imaging Results Comments: EXAM: CHEST RADIOGRAPHY EXAM DATE: 10/13/2017 02:16 PM. CLINICAL HISTORY: Chest pain. COMPARISON: 01/20/2017. TECHNIQUE: 1 view. FINDINGS: Lungs/Pleura: Lungs appear unchanged. There is mild elevation of the right diaphragm. Trachea is midline. Mediastinum: Heart size is normal. Other: None. IMPRESSION: Negative for an acute cardiopulmonary process. Core Measures - Anticipated LOS I expect patient to be DC'd or transferred within 96 hours.: Yes - DVT/VTE - Prophylaxis VTE/DVT Device ordered at admit?: Yes
[2017-10-14 16:16] LABS: BILIRUBIN,URINE NEGATIVE (NEGATIVE); GLUCOSE, URINE (UA) NEGATIVE (NEGATIVE); KETONES,URINE (UA) TRACE mg/dL (NEGATIVE); LEUKOCYTE ESTERASE, URINE NEGATIVE (NEGATIVE); NITRITE,URINE NEGATIVE (NEGATIVE); OCCULT BLOOD,URINE NEGATIVE (NEGATIVE); PROTEIN,URINE NEGATIVE (NEGATIVE); UROBILINOGEN,URINE 0.2 (NORMAL) E.U./dL (NORMAL)
[2017-10-14 16:18] LABS: CLARITY,URINE CLEAR (CLEAR)
[2017-10-14] MEDS: LORazepam 0.5 MG TABLET PO SCH ×2 (17:02→23:43)
[2017-10-14] MEDS: SODIUM CHLORIDE FLUSH 0.9% 10 ML SYRINGE IVP SCH (17:03)
--- NOTE | 2017-10-14 17:27 | CT Report ---
EXAM: CT HEAD EXAM DATE: 10/14/2017 04:30 PM. CLINICAL HISTORY: Syncope, head injury. COMPARISON: None. TECHNIQUE: Multiaxial CT images were obtained from the foramen magnum to the vertex. Reformats: Coron al. IV contrast: None. In accordance with CT protocol optimization, one or more of the following dose reduction techniques w ere utilized for this exam: automated exposure control, adjustment of mA and/or KV based on patient s ize, or use of iterative reconstructive technique. FINDINGS: Parenchyma: No intraparenchymal hemorrhage. No evidence of mass, midline shift, or CT findings of inf arction. Jacques-white differentiation is distinct. Extraaxial Spaces: No subdural or epidural collections identified. Ventricles: Normal in size and position. Sinuses and Orbits: Imaged paranasal sinuses, orbits, and mastoids show no significant abnormality. Bones: No evidence of fracture or calvarial defect. Other: None. IMPRESSION: Negative for an acute or focal intracranial abnormality. [facility] Referring Provider Line: [phone] SITE ID: [id number]
--- NOTE | 2017-10-14 17:27 | CT Preliminary Report ---
Exam: CT HEAD W/O IMPRESSION: Negative for an acute or focal intracranial abnormality. [facility] SITE ID: [id number]
[2017-10-14] MEDS: HYDROcod/ACETAM 5/325 MG TABLET PO PRN (17:41)
[2017-10-14] MEDS ORDERED: LORazepam 0.5 MG TABLET PO ONE (20:20)
[2017-10-14] MEDS: PROCHLORPERAZINE 10 MG/2 ML VIAL IVP PRN (20:29)
[2017-10-15] MEDS ORDERED: THIAMINE INJ 100 MG, FOLIC ACID INJ 1 MG in SODIUM CHLORIDE 0.9% 100ML 100 ML IV SCH ×2 (02:00→14:00)
[2017-10-15] MEDS ORDERED: MULTIVITAMIN 10 ML in SODIUM CHLORIDE 0.9% 1,000 ML IV SCH ×2 (02:00→14:00)
[2017-10-15] MEDS: LORazepam 2 MG/ML VIAL IVP PRN ×6 (02:41→20:43)
[2017-10-15] MEDS: SODIUM CHLORIDE FLUSH 0.9% 10 ML SYRINGE IVP SCH ×3 (04:26→17:20)
[2017-10-15] MEDS: POTASSIUM CHLOR 10 MEQ/100 ML 10 MEQ/100 ML BAG IV SCH ×4 (04:37→12:10)
[2017-10-15] MEDS: LORazepam 0.5 MG TABLET PO SCH ×4 (04:37→22:37)
[2017-10-15 06:29] LABS: CALCIUM 8.5 mg/dL (8.5-10.3); CREATININE 0.7 mg/dL (0.6-1.2); MAGNESIUM 2.1 mg/dL (1.7-2.8)
[2017-10-15] MEDS: PROCHLORPERAZINE 10 MG/2 ML VIAL IVP PRN ×2 (07:59→14:18)
[2017-10-15] MEDS: HYDROcod/ACETAM 5/325 MG TABLET PO PRN ×2 (07:59→20:43)
[2017-10-15] MEDS: THIAMINE 100 MG TABLET PO SCH (08:00)
[2017-10-15] MEDS: PRENATAL VITAMIN TABLET PO SCH (08:00)
[2017-10-15] MEDS: POLYETHYLENE GLYCOL 3350 17 GM PACKET PO SCH (08:00)
[2017-10-15] MEDS ORDERED: SODIUM CHLORIDE 0.9% 100ML 200 ML IV ONE (08:04)
[2017-10-15] MEDS: ASPIRIN 325 MG TABLET PO SCH (09:30)
[2017-10-15] MEDS: FAMOTIDINE 20 MG TABLET PO SCH (09:30)
[2017-10-15] MEDS: SODIUM CHLORIDE FLUSH 0.9% 10 ML SYRINGE IVP PRN ×2 (11:40→20:43)
--- NOTE | 2017-10-15 16:00 | PROVIDER PROGRESS NOTE ---
Subjective - Prog Note Date Prog Note Date: 10/15/17 Prog Note Time: 15:00 - Subjective Pt reports feeling: Improved (The patient says he does not feel well but feels less shaky and less nauseous than he had been yesterday. He denies any fevers or chills, shortness of breath or chest pain.He is eating.) Current Medications - Current Medications Current Medications: Active Medications Generic Name Dose Route Start Last Admin Trade Name Freq PRN Reason Stop Dose Admin Hydrocodone Bitart/Acetaminophen 1 tab 10/14/17 15:14 10/15/17 07:59 [place] 5/325 PO 1 tab Q4HR PRN Administration Pain 5 to 7 Aspirin 325 mg 10/15/17 09:00 10/15/17 09:30 Kiya PO 325 mg DAILY DESMOND Administration Famotidine 20 mg 10/15/17 09:00 10/15/17 09:30 Pepcid PO 20 mg DAILY DESMOND Administration Multivitamins 10 ml/ Sodium 1,010 mls @ 100 mls/hr 10/15/17 14:00 Chloride IV Q24H DESMOND Thiamine HCl 100 mg/ Folic 101.2 mls @ 50.6 mls/hr 10/15/17 14:00 10/15/17 14 :18 Acid 1 mg/ Sodium Chloride IV 50.6 mls/hr Q24H DESMOND Administration Ibuprofen 600 mg 10/14/17 15:14 Motrin PO Q6HR PRN Pain 1 to 4 Lorazepam 0.5 mg 10/14/17 16:00 10/15/17 10:15 Ativan PO 0.5 mg Q6H DESMOND Administration Lorazepam 1 mg 10/15/17 01:12 10/15/17 14:18 Ativan Inj (Vial) IVP 1 mg Q30M PRN Administration CIWA >8 Protocol Polyethylene Glycol 17 gm 10/15/17 09:00 10/15/17 08:00 Miralax PO Not Given DAILY DESMOND Multivit/Folic Acid/Iron 1 tab 10/15/17 09:00 10/15/17 08:00 Trinatal Rx 1 PO 1 tab DAILY DESMOND Administration Prochlorperazine Edisylate 10 mg 10/14/17 15:14 10/15/17 14:18 Compazine Inj IVP 10 mg Q6HR PRN Administration Nausea / Vomiting Quetiapine Fumarate 50 mg 10/15/17 21:00 Seroquel PO QPM DESMOND Sodium Chloride 10 ml 10/14/17 15:14 10/15/17 11:40 Normal Saline Flush 0.9% IVP 10 ml PRN PRN Administration NEEDED PER PROVIDER ORDERS Sodium Chloride 10 ml 10/14/17 17:00 10/15/17 08:01 Normal Saline Flush 0.9% IVP 10 ml 0100,0900,1700 DESMOND Administration Temazepam 15 mg 10/14/17 15:14 Restoril PO QPM PRN Insomnia Thiamine HCl 100 mg 10/15/17 09:00 10/15/17 08:00 Vitamin B-1 PO 100 mg DAILY DESMOND Administration QUEtiapine [SEROquel] 50 mg ORAL QPM 08/14/14 Aspirin 325 mg PO DAILY 10/14/17 Famotidine [Pepcid] 20 mg PO DAILY 10/14/17 Objective - Vital Signs/Intake & Output Reviewed Vital Signs: Yes Vital Signs: Vital Signs x48h Temp Pulse Resp BP Pulse Ox 10/15/17 15:36 37.3 C 85 18 124/82 H 98 10/15/17 13:00 36.8 C 87 18 128/81 H 99 10/15/17 10:00 37 C 74 18 132/84 H 97 Intake & Output: Intake & Output 10/12/17 10/13/17 10/14/17 10/15/17 23:59 23:59 23:59 23:59 Intake Total 2911.2 897.034 Output Total 875 1150 Balance 2036.2 -252.966 - Objective General Appearance: positive: Alert, Mild distress Eyes Bilateral: positive: Normal inspection, PERRL, EOMI, No lid inflammation, Conjunctivae nml, No scleral icterus ENT: positive: ENT inspection nml, Pharynx nml, No signs of dehydration Neck: positive: Nml inspection, Thyroid nml, No JVD, Trachea midline. negative : Thyromegaly Respiratory: positive: Chest non-tender, No respiratory distress, Breath sounds nml. negative: Wheezes, Rales, Rhonchi Cardiovascular: positive: Regular rate & rhythm, No murmur, No gallop Abdomen: positive: Non-tender, No organomegaly, Nml bowel sounds, No distention. negative: Guarding, Rebound Back: positive: Nml inspection. negative: CVA tenderness (R), CVA tenderness (L ) Skin: positive: Color nml, No rash, Warm, Dry. negative: Cyanosis Extremities: positive: Non-tender, Full ROM, Nml appearance, No pedal edema Neurologic/Psychiatric: positive: Oriented x3, CN's nml (2-12), Motor nml, Sensation nml, Depressed mood/affect - Lab Results Fish Bones: 10/14/17 13:36 10/15/17 05:43 Other Labs: Lab Results x24hrs 10/15/17 10/14/17 Range/Units 05:43 16:04 Sodium 136 (135-145) mmol/L Potassium 3.9 (3.5-5.0) mmol/L Chloride 101 (101-111) mmol/L Carbon Dioxide 25 (21-32) mmol/L Anion Gap 10.0 (6-13) BUN 6 (6-20) mg/dL Creatinine 0.7 (0.6-1.2) mg/dL Estimated GFR (MDRD) 118 (>89) Glucose 95 (70-100) mg/dL Calcium 8.5 (8.5-10.3) mg/dL Magnesium 2.1 (1.7-2.8) mg/dL Urine Color YELLOW Urine Clarity CLEAR (CLEAR) Urine pH 6.0 (5.0-7.5) PH Ur Specific [place] 1.010 (1.002-1.030) Urine Protein NEGATIVE (NEGATIVE) mg/dL Urine Glucose (UA) NEGATIVE (NEGATIVE) mg/dL Urine Ketones TRACE (NEGATIVE) mg/dL Urine Occult Blood NEGATIVE (NEGATIVE) Urine Nitrite NEGATIVE (NEGATIVE) Urine Bilirubin NEGATIVE (NEGATIVE) Urine Urobilinogen 0.2 (NORMAL) (NORMAL) E.U./dL Ur Leukocyte Esterase NEGATIVE (NEGATIVE) Ur Microscopic Review NOT INDICATED Urine Culture Comments NOT INDICATED - Diagnostic Imaging Diagnostic Imaging Results: positive: Final report reviewed Diagnostic Imaging Comments: EXAM: CHEST RADIOGRAPHY EXAM DATE: 10/13/2017 02:16 PM. CLINICAL HISTORY: Chest pain. COMPARISON: 01/20/2017. TECHNIQUE: 1 view. FINDINGS: Lungs/Pleura: Lungs appear unchanged. There is mild elevation of the right diaphragm. Trachea is midline. Mediastinum: Heart size is normal. Other: None. IMPRESSION: Negative for an acute cardiopulmonary process. EXAM: CT HEAD EXAM DATE: 10/14/2017 04:30 PM. CLINICAL HISTORY: Syncope, head injury. COMPARISON: None. TECHNIQUE: Multiaxial CT images were obtained from the foramen magnum to the vertex. Reformats: Coronal. IV contrast: None. In accordance with CT protocol optimization, one or more of the following dose reduction techniques were utilized for this exam: automated exposure control, adjustment of mA and/or KV based on patient size, or use of iterative reconstructive technique. FINDINGS: Parenchyma: No intraparenchymal hemorrhage. No evidence of mass, midline shift, or CT findings of infarction. Jacques-white differentiation is distinct. Extraaxial Spaces: No subdural or epidural collections identified. Ventricles: Normal in size and position. Sinuses and Orbits: Imaged paranasal sinuses, orbits, and mastoids show no significant abnormality. Bones: No evidence of fracture or calvarial defect. Other: None. IMPRESSION: Negative for an acute or focal intracranial abnormality. ABX Reporting Has patient been on IV antibiotics over the past 48 hours?: No Assessment/Plan - Problem List (1) Syncope Impression: `Unsure of etiology, thus far workup is negative. Await results of remaining testing. No further syncopal episodes while inpatient. Qualifiers: Syncope type: unspecified Qualified Code(s): R55 - Syncope and collapse (2) Alcohol abuse Impression: The patient has requested help for his alcoholism and has requested options for rehab following this hospitalization. At this time he has identified a rehab facility that he wishes to be discharged to; unfortunately at this time they do not have a bed until the . We will focus on the patient's physical issues and will transfer him home when he is cleared to do so. He will then follow-up with the rehab facility on his own. (3) Insomnia Impression: We have continued the patient on Seroquel and this was effective last night. We will continue to monitor. (4) Gastroesophageal reflux disease Impression: We are continuing the patient on his home dosing of famotidine.
[2017-10-15] MEDS: IBUPROFEN 600 MG TABLET PO PRN (17:37)
[2017-10-15] MEDS ORDERED: QUEtiapine 100 MG TABLET PO SCH (21:00)
--- NOTE | 2017-10-15 22:49 | Ultrasound Preliminary Report ---
Exam: US CAROTID DOPPLER COMPLETE IMPRESSION: No hemodynamically significant stenoses. Validated velocity measurements with angiographic measurements and velocity criteria are extrapolated from diameter data as defined by the Society of Radiologists in Ultrasound Consensus Conference Radi ology 2003; 229;340-346. [facility] SITE ID: [id number]
--- NOTE | 2017-10-15 23:01 | Ultrasound Report ---
EXAM: CAROTID DOPPLER ULTRASOUND EXAM DATE: 10/15/2017 09:34 PM. CLINICAL HISTORY: Syncope. COMPARISON: None. TECHNIQUE: Real-time sonographic vascular imaging was performed by the trimming cutter through the caroti d arterial system with a linear transducer utilizing color-flow, Doppler flow and spectral analysis. Multiple door to door sales representative static images were saved for review. FINDINGS: Right: RCCA Prox: PSV 56.8 cm/sec. RCCA Dist: PSV 55.2 cm/sec, EDV 16.2 cm/sec. RECA: PSV 71.5 cm/sec. R Bulb: PSV 35.9 cm/sec, EDV 8.1 cm/sec, ICA/CCA ratio 0.7. PRIETO Prox: PSV 50.6 cm/sec, EDV 10.8 cm/sec, ICA/CCA ratio 0.9. PRIETO Mid: PSV 46.7 cm/sec, EDV 4.3 cm/sec, ICA/CCA ratio 0.9. PRIETO Dist: PSV 34.8 cm/sec, EDV 14.7 cm/sec, ICA/CCA ratio 0.6. RVA: PSV 34 cm/sec. RVA flow direction: Antegrade. Left: LCCA Prox: PSV 85.8 cm/sec. LCCA Dist: PSV 56.6 cm/sec, EDV 15.8 cm/sec. LECA: PSV 71.9 cm/sec. L Bulb: PSV 34.8 cm/sec, EDV 0.9 cm/sec, ICA/CCA ratio 0.6. LICA Prox: PSV 36.5 cm/sec, EDV 13.0 cm/sec, ICA/CCA ratio 0.6. LICA Mid: PSV 38.5 cm/sec, EDV 13.9 cm/sec, ICA/CCA ratio 0.7. LICA Dist: PSV 41.3 cm/sec, EDV 13.9 cm/sec, ICA/CCA ratio 0.7. LVA: PSV 48.7 cm/sec. LVA flow direction: Antegrade. Other: Mild heterogeneous plaquing at both bifurcations. IMPRESSION: No hemodynamically significant stenoses. Validated velocity measurements with angiographic measurements and velocity criteria are extrapolated from diameter data as defined by the Society of Radiologists in Ultrasound Consensus Conference Radi ology 2003; 229;340-346. [facility] Referring Provider Line: [phone] SITE ID: [id number]
[2017-10-15] MEDS: NICOTINE 21 MG PATCH TOP SCH (23:40)
[2017-10-16] MEDS: SODIUM CHLORIDE FLUSH 0.9% 10 ML SYRINGE IVP SCH ×4 (01:16→14:25)
[2017-10-16] MEDS: LORazepam 0.5 MG TABLET PO SCH ×3 (04:16→16:28)
[2017-10-16] MEDS: HYDROcod/ACETAM 5/325 MG TABLET PO PRN ×3 (04:20→13:13)
[2017-10-16 06:09] LABS: HGB - HEMOGLOBIN 12.7 g/dL (14.0-18.0); MEAN CORPUSCULAR HEMOGLOBIN 34.2 pg (27.0-31.0); MEAN CORPUSCULAR HGB CONC 33.2 g/dL (32.0-36.0); MEAN PLATELET VOLUME 9.4 fL (7.4-11.4); RED BLOOD COUNT 3.7 10^6/uL (4.70-6.10); WHITE BLOOD COUNT 3.5 x10^3/uL (4.8-10.8)
[2017-10-16 06:51] LABS: CALCIUM 8.8 mg/dL (8.5-10.3); CREATININE 0.7 mg/dL (0.6-1.2)
[2017-10-16] MEDS: ASPIRIN 325 MG TABLET PO SCH (08:31)
[2017-10-16] MEDS: FAMOTIDINE 20 MG TABLET PO SCH (08:31)
[2017-10-16] MEDS: PRENATAL VITAMIN TABLET PO SCH (08:31)
[2017-10-16] MEDS: SODIUM CHLORIDE FLUSH 0.9% 10 ML SYRINGE IVP PRN ×3 (08:31→14:54)
[2017-10-16] MEDS: THIAMINE 100 MG TABLET PO SCH ×2 (08:31→14:48)
[2017-10-16] MEDS: NICOTINE 21 MG PATCH TOP SCH (08:32)
[2017-10-16] MEDS: POLYETHYLENE GLYCOL 3350 17 GM PACKET PO SCH (08:32)
[2017-10-16] MEDS ORDERED: GADOBUTROL 7.5 MMOL/7.5 ML VIAL ONE (09:34)
[2017-10-16] MEDS ORDERED: GADOBUTROL 7.5 MMOL/7.5 ML VIAL IVP ONE (09:46)
[2017-10-16] MEDS: LORazepam 2 MG/ML VIAL IVP PRN ×3 (11:14→14:24)
--- NOTE | 2017-10-16 13:39 | Discharge Plan ---
Discharge Plan Disposition: 01 Home, Self Care Condition: Stable Prescriptions: LORazepam [Ativan] 0.5 mg PO Q6H #16 tablet Diet: Regular Activity Restrictions: No Restrictions Shower Restrictions: No Driving Restrictions: No Weight Bearing: Full Weight Additional Instructions or Follow Up instructions: You presented to the hospital after he passed out at home. We worked up possible causes of syncope and did extensive workup with an echocardiogram, CT of your head, carotid Dopplers and MRI of the brain. Your workup was negative for any life-threatening cause of syncope. He also were observed on telemetry and did not have any arrhythmias while you were hospitalized. We suspect that your syncopal episode, passing out, was likely due to you being dehydrated from excessive drinking. We are very happy that you are committed to quitting drinking and smoking. We understand that you will be going to a drinking rehab in about a week. I have prescribed for you lorazepam with a tapered dose to help you get through the next week until you are able to get to rehab. No Smoking: If you smoke, Please STOP! Call for help. Follow-up with: Leana Nettles ARNP [Credentialed Staff Provider] -
--- NOTE | 2017-10-16 14:10 | DISCHARGE SUMMARY ---
Discharge Summary Admit Date: 10/14/17 Discharge Date: 10/16/17 Discharging Provider: Santino Dubon MD Primary Care Provider: Leana DOMINGUEZ Code Status: Attempt Resuscitation Condition at Discharge: Stable Discharge Disposition: 01 Home, Self Care - DIAGNOSES Admission Diagnoses: 1. Syncope 2. Alcohol abuse 3. Insomnia 4. GERD Discharge Diagnoses with Status of Each Condition: 1. Syncope: Resolved 2. Alcohol abuse: Stable 3. Tobacco abuse: Stable 4. Insomnia: Stable 5. Gastroesophageal reflux disease: Stable - HPI History of Present Illness: Mr. Sky Gaffney is a very pleasant 52-year-old gentleman who unfortunately has been dealing with alcoholism for many years. He says he had 2 or 3 beers this morning which is fairly typical for him as he has about 18 a day, and while walking into a room in his house felt lightheaded for moment and then woke up on the floor. The patient denies any trauma to his head and says he does not feel sore anywhere. He was brought to the emergency department where workup was done and was essentially negative. He will be admitted with a diagnosis of syncope and we will place the patient on telemetry, obtain a brain MRI, echocardiogram, and carotid studies, and address any other issues as they arise. - HOSPITAL COURSE Hospital Course: Patient was admitted to the hospital for workup of syncope. Patient underwent a CT of his head, echocardiogram, carotid Doppler, EKG, troponin, telemetry monitoring and an MRI of his brain. Workup was negative for any structural cause of syncope. The patient did have electrolyte derangements on presentation and appeared to be dehydrated due to his excessive alcohol use. The patient was given IV fluids, thiamine, folic acid and multivitamin. The patient had no further episodes of syncope and his workup was negative. It was thought the patient likely had syncopal episode secondary to dehydration and alcohol abuse. The patient was counseled on alcohol and tobacco abuse. Patient appeared to be committed to quit drinking and quit smoking cigarettes. The patient was given a nicotine patch while he was hospitalized. The patient did not go into alcohol withdrawal. He was prescribed Ativan taper over the next 7 days until he is able to get into an alcohol rehab. - ALLERGIES Allergies/Adverse Reactions: Allergies Allergy/AdvReac Type Severity Reaction Status Date / Time Penicillins AdvReac Unknown Rash Verified 10/13/17 14:27 - MEDICATIONS Home Medications: Ambulatory Orders Medication Instructions Recorded Confirmed QUEtiapine [SEROquel] 50 mg ORAL QPM 08/14/14 10/14/17 Aspirin 325 mg PO DAILY 10/14/17 10/14/17 Famotidine [Pepcid] 20 mg PO DAILY 10/14/17 10/14/17 LORazepam [Ativan] 0.5 mg PO Q6H #16 tablet 10/16/17 - PHYSICAL EXAM AT DISCHARGE General Appearance: positive: No acute distress, Alert Eyes Bilateral: positive: Normal inspection, PERRL, EOMI, No lid inflammation, Conjunctivae nml, No scleral icterus ENT: positive: ENT inspection nml, Pharynx nml, No signs of dehydration. negative: Purulent nasal drainage, Pharyngeal erythema, Oral lesions Neck: positive: Nml inspection, Thyroid nml, No JVD, Trachea midline. negative : Thyromegaly, Lymphadenopathy (R), Lymphadenopathy (L), Carotid bruit, Tracheal deviation Respiratory: positive: Chest non-tender, No respiratory distress, Breath sounds nml. negative: Wheezes, Rales, Rhonchi Cardiovascular: positive: Regular rate & rhythm, No murmur, No gallop Peripheral Pulses: positive: 2+ Abdomen: positive: Non-tender, No organomegaly, Nml bowel sounds, No distention Back: positive: Nml inspection. negative: CVA tenderness (R), CVA tenderness (L ) Skin: positive: Color nml, No rash, Warm. negative: Cyanosis, Diaphoresis, Pallor Extremities: positive: Non-tender, Full ROM, Nml appearance, No pedal edema Neurologic/Psychiatric: positive: Oriented x3, CN's nml (2-12), Motor nml, Sensation nml, Mood/affect nml - LABS Result Diagrams: 10/16/17 05:25 10/16/17 05:25 Other Lab Results: Laboratory Results WBC 3.5 x10^3/uL (4.8-10.8) L 10/16/17 05:25 RBC 3.70 10^6/uL (4.70-6.10) L 10/16/17 05:25 Hgb 12.7 g/dL (14.0-18.0) L 10/16/17 05:25 Hct 38.1 % (42.0-52.0) L 10/16/17 05:25 MCV 103.0 fL (80.0-94.0) H 10/16/17 05:25 MCH 34.2 pg (27.0-31.0) H 10/16/17 05:25 MCHC 33.2 g/dL (32.0-36.0) 10/16/17 05:25 RDW 13.0 % (12.0-15.0) 10/16/17 05:25 Plt Count 55 10^3/uL (130-450) L 10/16/17 05:25 MPV 9.4 fL (7.4-11.4) 10/16/17 05:25 Neut # (Auto) 2.3 10^3/uL (1.5-6.6) 10/14/17 13:36 Lymph # (Auto) 0.5 10^3/uL (1.5-3.5) L 10/14/17 13:36 [place] # (Auto) 0.2 10^3/uL (0.0-1.0) 10/14/17 13:36 Eos # (Auto) 0.0 10^3/uL (0.0-0.7) 10/14/17 13:36 Baso # (Auto) 0.0 10^3/uL (0.0-0.1) 10/14/17 13:36 Absolute Nucleated RBC 0.00 x10^3/uL 10/14/17 13:36 Nucleated RBC % 0.0 /100WBC 10/14/17 13:36 Sodium 137 mmol/L (135-145) 10/16/17 05:25 Potassium 3.5 mmol/L (3.5-5.0) 10/16/17 05:25 Chloride 102 mmol/L (101-111) 10/16/17 05:25 Carbon Dioxide 28 mmol/L (21-32) 10/16/17 05:25 Anion Gap 7.0 (6-13) 10/16/17 05:25 BUN 5 mg/dL (6-20) L 10/16/17 05:25 Creatinine 0.7 mg/dL (0.6-1.2) 10/16/17 05:25 Estimated GFR (MDRD) 118 (>89) 10/16/17 05:25 Glucose 109 mg/dL (70-100) H 10/16/17 05:25 Calcium 8.8 mg/dL (8.5-10.3) 10/16/17 05:25 Phosphorus 2.7 mg/dL (2.5-4.6) 10/14/17 13:36 Magnesium 2.0 mg/dL (1.7-2.8) 10/16/17 05:25 Total Bilirubin 0.6 mg/dL (0.2-1.0) 10/14/17 13:36 AST 116 IU/L (10-42) H 10/14/17 13:36 ALT 48 IU/L (10-60) 10/14/17 13:36 Alkaline Phosphatase 72 IU/L (42-121) 10/14/17 13:36 Troponin I < 0.04 ng/mL (<0.49) 10/14/17 13:36 Total Protein 6.6 g/dL (6.7-8.2) L 10/14/17 13:36 Albumin 3.7 g/dL (3.2-5.5) 10/14/17 13:36 Globulin 2.9 g/dL (2.1-4.2) 10/14/17 13:36 Albumin/Globulin Ratio 1.3 (1.0-2.2) 10/14/17 13:36 Lipase 29 U/L (22-51) 10/14/17 13:36 Urine Color YELLOW 10/14/17 16:04 Urine Clarity CLEAR (CLEAR) 10/14/17 16:04 Urine pH 6.0 PH (5.0-7.5) 10/14/17 16:04 Ur Specific [place] 1.010 (1.002-1.030) 10/14/17 16:04 Urine Protein NEGATIVE mg/dL (NEGATIVE) 10/14/17 16:04 Urine Glucose (UA) NEGATIVE mg/dL (NEGATIVE) 10/14/17 16:04 Urine Ketones TRACE mg/dL (NEGATIVE) 10/14/17 16:04 Urine Occult Blood NEGATIVE (NEGATIVE) 10/14/17 16:04 Urine Nitrite NEGATIVE (NEGATIVE) 10/14/17 16:04 Urine Bilirubin NEGATIVE (NEGATIVE) 10/14/17 16:04 Urine Urobilinogen 0.2 (NORMAL) E.U./dL (NORMAL) 10/14/17 16:04 Ur Leukocyte Esterase NEGATIVE (NEGATIVE) 10/14/17 16:04 Ur Microscopic Review NOT INDICATED 10/14/17 16:04 Urine Culture Comments NOT INDICATED 10/14/17 16:04 Ethyl Alcohol 71.5 mg/dL 10/14/17 13:36 - DIAGNOSTIC IMAGING Diagnostic Imaging Results: Final report reviewed Diagnostic Imaging Results Comments: EXAM: XR/CXR1VW ([id number]) EXAM: CHEST RADIOGRAPHY EXAM DATE: 10/13/2017 02:16 PM. CLINICAL HISTORY: Chest pain. COMPARISON: 01/20/2017. TECHNIQUE: 1 view. FINDINGS: Lungs/Pleura: Lungs appear unchanged. There is mild elevation of the right diaphragm. Trachea is midline. Mediastinum: Heart size is normal. Other: None. IMPRESSION: Negative for an acute cardiopulmonary process. EXAM: [id number] CT/HEADWO ([id number]) EXAM: CT HEAD EXAM DATE: 10/14/2017 04:30 PM. CLINICAL HISTORY: Syncope, head injury. COMPARISON: None. TECHNIQUE: Multiaxial CT images were obtained from the foramen magnum to the vertex. Reformats: Coronal. IV contrast: None. In accordance with CT protocol optimization, one or more of the following dose reduction techniques were utilized for this exam: automated exposure control, adjustment of mA and/or KV based on patient size, or use of iterative reconstructive technique. FINDINGS: Parenchyma: No intraparenchymal hemorrhage. No evidence of mass, midline shift, or CT findings of infarction. Jacques-white differentiation is distinct. Extraaxial Spaces: No subdural or epidural collections identified. Ventricles: Normal in size and position. Sinuses and Orbits: Imaged paranasal sinuses, orbits, and mastoids show no significant abnormality. Bones: No evidence of fracture or calvarial defect. Other: None. IMPRESSION: Negative for an acute or focal intracranial abnormality. EXAM: [id number] US/CARCOM ([id number]) EXAM: CAROTID DOPPLER ULTRASOUND EXAM DATE: 10/15/2017 09:34 PM. CLINICAL HISTORY: Syncope. COMPARISON: None. TECHNIQUE: Real-time sonographic vascular imaging was performed by the truck railroad and bus motor mechanic through the carotid arterial system with a linear transducer utilizing color-flow, Doppler flow and spectral analysis. Multiple dental sales representative static images were saved for review. FINDINGS: Right: RCCA Prox: PSV 56.8 cm/sec. RCCA Dist: PSV 55.2 cm/sec, EDV 16.2 cm/sec. RECA: PSV 71.5 cm/sec. R Bulb: PSV 35.9 cm/sec, EDV 8.1 cm/sec, ICA/CCA ratio 0.7. PRIETO Prox: PSV 50.6 cm/sec, EDV 10.8 cm/sec, ICA/CCA ratio 0.9. PRIETO Mid: PSV 46.7 cm/sec, EDV 4.3 cm/sec, ICA/CCA ratio 0.9. PRIETO Dist: PSV 34.8 cm/sec, EDV 14.7 cm/sec, ICA/CCA ratio 0.6. RVA: PSV 34 cm/sec. RVA flow direction: Antegrade. Left: LCCA Prox: PSV 85.8 cm/sec. LCCA Dist: PSV 56.6 cm/sec, EDV 15.8 cm/sec. LECA: PSV 71.9 cm/sec. L Bulb: PSV 34.8 cm/sec, EDV 0.9 cm/sec, ICA/CCA ratio 0.6. LICA Prox: PSV 36.5 cm/sec, EDV 13.0 cm/sec, ICA/CCA ratio 0.6. LICA Mid: PSV 38.5 cm/sec, EDV 13.9 cm/sec, ICA/CCA ratio 0.7. LICA Dist: PSV 41.3 cm/sec, EDV 13.9 cm/sec, ICA/CCA ratio 0.7. LVA: PSV 48.7 cm/sec. LVA flow direction: Antegrade. Other: Mild heterogeneous plaquing at both bifurcations. IMPRESSION: No hemodynamically significant stenoses. Echocardiogram The left ventricular size is normal. Left ventricular wall thickness is normal. Overall left ventricular systolic function is normal with an ejection fraction of 7075%. Normal diastolic G. No regional wall motion abnormalities are seen. The right ventricle is normal in size and function The left atrial volume index is normal The right atrial index is normal The aortic valve is trileaflet. There is no evidence of aortic stenosis. There is no evidence of aortic regurgitation. The mitral valve is normal. No mitral stenosis noted. There is trace mitral regurgitation. The tricuspid valve appears structurally normal. No tricuspid stenosis noted. Mild tricuspid regurgitation. Insufficient tricuspid regurg jet would not allow for accurate assessment of right ventricular systolic pressure The pulmonic valve is normal. No significant pulmonic regurgitation noted. There is no pulmonic stenosis noted. There is no pericardial effusion noted. The intra-atrial septum appears normal. The intra-atrial septum is intact on color flow imaging. The aortic root, ascending aorta and aortic arch diameters are normal. The pulmonary artery is normal. The inferior vena cava is normal with greater than 50% inspiratory collapse which is suggestive of a right atrial pressure of 3 mmHg No mass or thrombus identified There is no pleural effusion noted. MRI brain with and without contrast Impression: 1. No MRI evidence for acute intracranial abnormality or enhancing mass. 2. Mild degree of generalized cerebral volume loss may be present. - FOLLOW UP Follow Up: You are being discharged home with a tapered dose of Ativan to try to get you through the next week before you enter alcohol rehab. We did an extensive workup for your syncope, passing out. The workup was negative for any structural heart disease, strokes, arrhythmias or any other life-threatening conditions. You likely had syncope due to being dehydrated from excessive alcohol use. You are encouraged to quit smoking and quit drinking and live a better lifestyle going forward. Please follow-up with your primary care physician as needed. - TIME SPENT Time Spent in Discharge (Minutes): 45
[2017-10-16] MEDS ORDERED: THIAMINE 100 MG TABLET PO SCH (14:30)
[2017-10-16] MEDS: PROCHLORPERAZINE 10 MG/2 ML VIAL IVP PRN (14:53)
[2017-10-16] MEDS: IBUPROFEN 600 MG TABLET PO PRN (14:54)
[2017-10-16 15:42] VITALS: BP 119/83
--- NOTE | 2017-10-18 22:35 | MRI Report ---
Procedure Date: 10/16/2017 Accession Number: [id number] / [id number] Procedure: MRI - Brain W/WO CPT Code: FULL RESULT: EXAM: MRI BRAIN WITHOUT AND WITH CONTRAST EXAM DATE: 10/16/2017 10:02 AM. CLINICAL HISTORY: Syncope. COMPARISON: No prior MRI. TECHNIQUE: Multiplanar, multisequence T1-weighted and fluid-sensitive MR sequences of the brain were performed. Sequences optimized for routine evaluation. Other: None. IV Contrast: Without and with 7.5 mL Gadavist. FINDINGS: Brain Volume: Mild generalized cerebral volume loss. Parenchyma: No acute hemorrhage, mass, or infarct. No white matter lesions identified. No abnormal enhancement. Ventricles/Cisterns: No hydrocephalus. Slightly more prominent subarachnoid spaces above and below the tentorium that might be expected for age which may be secondary to a mild degree of generalized cerebral volume loss. Orbits: Symmetric and unremarkable. Sella [place]: The pituitary gland, cavernous sinuses, suprasellar cistern and optic chiasm are unremarkable. IAC: Symmetric and unremarkable. Vasculature: Normal signal flow void is seen in the major arterial structures at the skull base. The dural sinuses are patent and enhance normally. Sinuses: Mild inferior maxillary sinus mucosal thickening. Bones: No focal pathologic appearing marrow signal changes. Other: None. IMPRESSION: 1. No MRI evidence for acute intracranial abnormality or enhancing mass. 2. A mild degree of generalized cerebral volume loss may be present. RADIA
== END 2017-10-16 16:40 | disposition home or self-care (01) ==
LOC: ED 12:35 → MS2 15:14 → INTOOBSV 15:14
PROVIDERS: ADMIT Hospitalist; ATTEND Internal Medicine
DX: R55 Syncope and collapse (principal); F10.10 Alcohol abuse, uncomplicated; G47.00 Insomnia, unspecified; K21.9 Gastro-esophageal reflux disease without esophagitis; F17.210 Nicotine dependence, cigarettes, uncomplicated; Z87.19 Personal history of other diseases of the digestive system; Z79.82 Long term (current) use of aspirin; Z79.899 Other long term (current) drug therapy
CPT/HCPCS: 36415; 70450; 70553; 80048; 80053; 81003; 83690; 83735; 84100; 84484; 85025; 85027; 93005; 93306; 93880; 96365; 96366; 96367; 96368; 96375; 96376; 99284; A9270; A9585; G0378; G0480; J2060; J3411; 80320; 81001; 87086

== ENCOUNTER 2018-02-27 13:32 | Outpatient (CLI) | payer MEDICARE, MEDICAID ==
--- NOTE | 2018-02-28 10:12 | XRAY Report ---
Reason: STRAIN OF MUSCLE Procedure Date: 02/27/2018 Accession Number: [id number] / [id number] Procedure: XRN - Lumbar Spine 2 View CPT Code: FULL RESULT: EXAM: LUMBOSACRAL SPINE RADIOGRAPHY EXAM DATE: 02/27/2018 01:50 PM. CLINICAL HISTORY: STRAIN OF MUSCLE. COMPARISONS: Lumbar MRI 10/09/2014. TECHNIQUE: 3 views. FINDINGS: Alignment: No spondylolisthesis or scoliosis. Bones: Five [id number] lumbar vertebral bodies are present. No fractures or bone lesions. Disks: Disk heights are maintained. Facets: No degenerative changes. Sacroiliac Joints: Unremarkable. Soft Tissues: Normal. The visualized bowel gas pattern is normal. Cholecystectomy is noted. IMPRESSION: Negative lumbar spine radiography. No appreciable change given differences in technique. RADIA
== END 2018-02-27 13:33 | disposition home or self-care (01) ==
LOC: DI.N 13:32
PROVIDERS: ATTEND Family Medicine
DX: S39.012D Strain of muscle, fascia and tendon of lower back, subsequent encounter (principal)
CPT/HCPCS: 72100

== ENCOUNTER 2018-07-30 16:44 | Outpatient (CLI) | payer MEDICARE, MEDICAID | END 2018-07-30 16:45 | disposition critical access hospital (66) | LOC: EMS 16:44 | PROVIDERS: ATTEND Surgery | DX: R45.851 Suicidal ideations (principal) | CPT/HCPCS: A0425; A0429 ==

== ENCOUNTER 2018-07-30 17:05 | Emergency (ER) | payer MEDICARE, MEDICAID ==
[2018-07-30 17:18] VITALS: BP 121/70
== END 2018-07-30 17:25 | disposition left against medical advice (07) ==
LOC: EDUNIT# → ED 17:05
DX: Z53.21 Procedure and treatment not carried out due to patient leaving prior to being seen by health care provider (principal)
CPT/HCPCS: 80053; 80307; 80320; 80329; 83690; 84443; 85025

== ENCOUNTER 2018-07-30 18:03 | Emergency (ER) | payer MEDICARE, MEDICAID ==
[2018-07-30 18:47] LABS: BASOPHILS % (AUTO) 0.8 %; EOSINOPHILS # (AUTO) 0.1 10^3/uL (0.0-0.7); EOSINOPHILS % (AUTO) 3.3 %; HGB - HEMOGLOBIN 14.5 g/dL (14.0-18.0); LYMPHOCYTES # (AUTO) 1.7 10^3/uL (1.5-3.5); MEAN CORPUSCULAR HEMOGLOBIN 31.7 pg (27.0-31.0); MEAN CORPUSCULAR HGB CONC 34.1 g/dL (32.0-36.0); MEAN PLATELET VOLUME 6.9 fL (7.4-11.4); MONOCYTES # (AUTO) 0.4 10^3/uL (0.0-1.0); MONOCYTES % (AUTO) 8.2 %; NEUTROPHILS # (AUTO) 2.1 10^3/uL (1.5-6.6); NEUTROPHILS % (AUTO) 48.7 %; PLT - PLATELET COUNT 225 10^3/uL (130-450); RED BLOOD COUNT 4.57 10^6/uL (4.70-6.10); RED CELL DISTRIBUTION WIDTH 14.8 % (12.0-15.0); WHITE BLOOD COUNT 4.3 x10^3/uL (4.8-10.8)
[2018-07-30 18:53] LABS: MUDS CUTOFF CONCENTRATIONS CUTOFF CONC BELOW:
[2018-07-30 19:00] LABS: BILIRUBIN,URINE NEGATIVE (NEGATIVE); GLUCOSE, URINE (UA) NEGATIVE (NEGATIVE); KETONES,URINE (UA) NEGATIVE (NEGATIVE); LEUKOCYTE ESTERASE, URINE NEGATIVE (NEGATIVE); NITRITE,URINE NEGATIVE (NEGATIVE); OCCULT BLOOD,URINE NEGATIVE (NEGATIVE); PH,URINE 6.5 PH (5.0-7.5); PROTEIN,URINE NEGATIVE (NEGATIVE); UROBILINOGEN,URINE 0.2 (NORMAL) E.U./dL (NORMAL)
[2018-07-30 19:00] LABS: ACETAMINOPHEN < 10 ug/mL (10-30); ALBUMIN 4.4 g/dL (3.2-5.5); ALBUMIN/GLOBULIN RATIO 1.3 (1.0-2.2); ALKALINE PHOSPHATASE 86 IU/L (42-121); ALT ALANINE AMINOTRANSFERASE 45 IU/L (10-60); AST ASPARTATE AMINOTRANSFERASE 91 IU/L (10-42); BILIRUBIN,TOTAL 0.3 mg/dL (0.2-1.0); BUN - BLOOD UREA NITROGEN 6 mg/dL (6-20); CALCIUM 8.7 mg/dL (8.5-10.3); CARBON DIOXIDE - CO2 29 mmol/L (21-32); CHLORIDE 104 mmol/L (101-111); CREATININE 0.8 mg/dL (0.6-1.2); GFR - MDRD 101 (>89); GLUCOSE 105 mg/dL (70-100); LIPASE 40 U/L (22-51); SALICYLATE < 6.0 mg/dL; SODIUM 144 mmol/L (135-145); TOTAL PROTEIN 7.7 g/dL (6.7-8.2)
[2018-07-30 19:05] LABS: AMPHETAMINE SCREEN,URINE NEGATIVE (NEGATIVE); BENZODIAZEPINES SCREEN, URINE NEGATIVE (NEGATIVE); CLARITY,URINE CLEAR (CLEAR); COCAINE SCREEN URINE NEGATIVE (NEGATIVE); METHADONE SCREEN, URINE NEGATIVE (NEGATIVE); METHAMPHETAMINES SCREEN, URINE NEGATIVE (NEGATIVE); OPIATE SCREEN, URINE POSITIVE (NEGATIVE); OXYCODONE SCREEN, URINE NEGATIVE (NEGATIVE); PROPOXYPHENE SCREEN, URINE NEGATIVE (NEGATIVE); TRICYCLIC ANTIDEPRESSANT,URINE NEGATIVE (NEGATIVE)
[2018-07-30] MEDS ORDERED: SODIUM CHLORIDE 0.9% 1,000 ML IV ONE (20:25)
[2018-07-30] MEDS ORDERED: MAG HYDROX/AL HYDROX/SIMETH 30 ML UDC PO STA (20:56)
[2018-07-30] MEDS ORDERED: GI COCKTAIL 120 ML BOTTLE PO SCH (21:00)
[2018-07-30] MEDS ORDERED: GABAPENTIN 100 MG CAPSULE PO STA ×2 (22:44→22:45)
[2018-07-31] MEDS ORDERED: GABAPENTIN 100 MG CAPSULE PO STA ×2 (00:35→05:37)
[2018-07-31 05:37] VITALS: BP 134/84
--- NOTE | 2018-07-31 05:41 | ED Physician Documentation ---
PD HPI MHE - Stated complaint Stated Complaint: SI/HBD - Chief complaint Chief Complaint: MHE - History obtained from History obtained from: Patient - History of Present Illness Primary symptom: Depression, Other (Alcohol intoxication) Timing - onset: Unknown Pain level max: 0 Pain level now: 0 Severity Comments: mild Contributing factors: Substance abuse - ETOH - Additional information Additional information: When drunk patient claimed to be suicidal. Review of Systems Constitutional: reports: Reviewed and negative Eyes: reports: Reviewed and negative Ears: reports: Reviewed and negative Nose: reports: Reviewed and negative Throat: reports: Reviewed and negative Cardiac: reports: Reviewed and negative Respiratory: reports: Reviewed and negative GI: reports: Reviewed and negative : reports: Reviewed and negative Skin: reports: Reviewed and negative Musculoskeletal: reports: Reviewed and negative Neurologic: reports: Reviewed and negative Psychiatric: reports: Reviewed and negative Endocrine: reports: Reviewed and negative Immunocompromised: reports: Reviewed and negative PD PAST MEDICAL HISTORY - Past Medical History Past Medical History: Yes GI: GERD, Pancreatitis Psych: Other Musculoskeletal: Chronic back pain Other Past Medical History: Reviewed and not pertinent - Past Surgical History Past Surgical History: Yes General: Cholecystectomy, Colonoscopy Ortho: Rotator cuff repair HEENT: Other Other past surgical history: Reviewed and not pertinent - Present Medications Home Medications: Ambulatory Orders Medication Instructions Recorded Confirmed QUEtiapine [SEROquel] 50 mg ORAL QPM 08/14/14 10/14/17 Aspirin 325 mg PO DAILY 10/14/17 10/14/17 Famotidine [Pepcid] 20 mg PO DAILY 10/14/17 10/14/17 LORazepam [Ativan] 0.5 mg PO Q6H #16 tablet 10/16/17 Gabapentin 300 mg PO TID #12 capsule 07/31/18 - Allergies Allergies/Adverse Reactions: Allergies Allergy/AdvReac Type Severity Reaction Status Date / Time Penicillins AdvReac Unknown Rash Verified 07/30/18 18:13 - Social History Does the pt smoke?: No Smoking Status: Never smoker Does the pt drink ETOH?: Yes Does the pt have substance abuse?: No - Family History Family history: reports: Other (Reviewed and not pertinent) - Immunizations Immunizations are current?: Yes - POLST Patient has POLST: No POLST Status: Full Code PD ED PE NORMAL - Vitals Vital signs reviewed: Yes - General General: Alert and oriented X 3, No acute distress - HEENT HEENT: PERRL - Neck Neck: Supple, no meningeal sign - Cardiac Cardiac: RRR, No murmur - Respiratory Respiratory: Clear bilaterally - Abdomen Abdomen: Normal bowel sounds, Soft, Non tender, Non distended - Derm Derm: Warm and dry - Extremities Extremities: No deformity - Neuro Neuro: Alert and oriented X 3, Other (Fasciculations) - Psych Psych: Normal mood, Normal affect Results - Vitals Vitals: Vital Signs - 24 hr 07/30/18 07/30/18 07/30/18 18:09 20:56 23:38 Temperature 36.7 C Heart Rate 91 88 84 Respiratory 18 16 16 Rate Blood Pressure 120/80 112/79 120/86 H O2 Saturation 98 98 99 07/31/18 07/31/18 03:52 05:35 Temperature 36.4 C L Heart Rate 85 Respiratory 15 17 Rate Blood Pressure 134/84 H O2 Saturation 98 Oxygen O2 Source Room air - Labs Labs: Laboratory Tests 07/30/18 07/30/18 07/30/18 17:12 18:41 18:41 WBC 4.3 L RBC 4.57 L Hgb 14.5 Hct 42.5 MCV 93.0 MCH 31.7 H MCHC 34.1 RDW 14.8 Plt Count 225 MPV 6.9 L Neut # (Auto) 2.1 Lymph # (Auto) 1.7 [place] # (Auto) 0.4 Eos # (Auto) 0.1 Baso # (Auto) 0.0 Absolute Nucleated RBC 0.00 Nucleated RBC % 0.0 Sodium 144 Potassium 4.0 Chloride 104 Carbon Dioxide 29 Anion Gap 11.0 BUN 6 Creatinine 0.8 Estimated GFR (MDRD) 101 Glucose 105 H Calcium 8.7 Total Bilirubin 0.3 AST 91 H ALT 45 Alkaline Phosphatase 86 Troponin I Total Protein 7.7 Albumin 4.4 Globulin 3.3 Albumin/Globulin Ratio 1.3 Lipase 40 TSH Urine Color YELLOW Urine Clarity CLEAR Urine pH 6.5 Ur Specific [place] <=1.005 Urine Protein NEGATIVE Urine Glucose (UA) NEGATIVE Urine Ketones NEGATIVE Urine Occult Blood NEGATIVE Urine Nitrite NEGATIVE Urine Bilirubin NEGATIVE Urine Urobilinogen 0.2 (NORMAL) Ur Leukocyte Esterase NEGATIVE Ur Microscopic Review NOT INDICATED Urine Culture Comments NOT INDICATED Salicylates < 6.0 Urine Opiates Screen POSITIVE H Ur Oxycodone Screen NEGATIVE Urine Methadone Screen NEGATIVE Ur Propoxyphene Screen NEGATIVE Acetaminophen < 10 L Ur Barbiturates Screen NEGATIVE Ur Tricyclics Screen NEGATIVE Ur Phencyclidine Scrn NEGATIVE Ur Amphetamine Screen NEGATIVE U Methamphetamines Scrn NEGATIVE U Benzodiazepines Scrn NEGATIVE Urine Cocaine Screen NEGATIVE U Cannabinoids Screen NEGATIVE Ethyl Alcohol 360.1 07/30/18 07/30/18 18:41 20:36 WBC RBC Hgb Hct MCV MCH MCHC RDW Plt Count MPV Neut # (Auto) Lymph # (Auto) [place] # (Auto) Eos # (Auto) Baso # (Auto) Absolute Nucleated RBC Nucleated RBC % Sodium Potassium Chloride Carbon Dioxide Anion Gap BUN Creatinine Estimated GFR (MDRD) Glucose Calcium Total Bilirubin AST ALT Alkaline Phosphatase Troponin I < 0.04 Total Protein Albumin Globulin Albumin/Globulin Ratio Lipase TSH 3.43 Urine Color Urine Clarity Urine pH Ur Specific [place] Urine Protein Urine Glucose (UA) Urine Ketones Urine Occult Blood Urine Nitrite Urine Bilirubin Urine Urobilinogen Ur Leukocyte Esterase Ur Microscopic Review Urine Culture Comments Salicylates Urine Opiates Screen Ur Oxycodone Screen Urine Methadone Screen Ur Propoxyphene Screen Acetaminophen Ur Barbiturates Screen Ur Tricyclics Screen Ur Phencyclidine Scrn Ur Amphetamine Screen U Methamphetamines Scrn U Benzodiazepines Scrn Urine Cocaine Screen U Cannabinoids Screen Ethyl Alcohol PD MEDICAL DECISION MAKING - ED course Complexity details: reviewed results, re-evaluated patient, considered differential, d/w patient, d/w family ED course: 53-year-old male with history of alcoholism presents with alcohol intoxication and suicidal thoughts. Patient no longer suicidal when clinically sober. Patient discharged to family. Given alcohol recovery resources and prescription for gabapentin for withdrawal symptoms. Patient exhibited mild withdrawal symptoms in the emerge department which improved with gabapentin. Departure - Departure Disposition: 01 Home, Self Care Clinical Impression: Alcohol intoxication Qualifiers: Complication of substance-induced condition: uncomplicated Qualified Code(s): F10.920 - Alcohol use, unspecified with intoxication, uncomplicated Condition: Stable Instructions: ED Alcohol Intoxication, Alcoholism Follow-Up: Your, PCP [Other] Prescriptions: Gabapentin 300 mg PO TID #12 capsule Comments: Take gabapentin as prescribed to prevent withdrawal symptoms. Follow-up with alcohol recovery resources.Return with worsening symptoms.
== END 2018-07-31 06:10 | disposition home or self-care (01) ==
LOC: ED 18:03
DX: F10.220 Alcohol dependence with intoxication, uncomplicated (principal); Z79.82 Long term (current) use of aspirin
CPT/HCPCS: 36415; 81003; 83690; 84484; 93005; 96360; 99283; 99284; A9270; 80053; 80306; 80307; 80320; 80329; 81001; 84443; 85025; 87086

== ENCOUNTER 2018-08-05 09:24 | Outpatient (CLI) | payer MEDICARE, MEDICAID | END 2018-08-05 23:59 | disposition home or self-care (01) | LOC: RT.N 09:24 | PROVIDERS: ATTEND Nurse Practitioner | DX: Z01.810 Encounter for preprocedural cardiovascular examination (principal); F10.20 Alcohol dependence, uncomplicated | CPT/HCPCS: 93005 ==

== ENCOUNTER 2019-02-27 15:07 | Outpatient (CLI) | payer MEDICARE, MEDICAID ==
--- NOTE | 2019-02-28 15:42 | XRAY Report ---
Reason: lumbar radiculopathy Procedure Date: 02/27/2019 Accession Number: [id number] / [id number] Procedure: XRN - Lumbar Spine Complete CPT Code: FULL RESULT: EXAM: LUMBOSACRAL SPINE RADIOGRAPHY EXAM DATE: 02/27/2019 03:32 PM. CLINICAL HISTORY: Lumbar radiculopathy. COMPARISONS: LUMBAR SPINE 2 VIEW 02/27/2018 1:50 PM. TECHNIQUE: 5 views. FINDINGS: Minimal anterolisthesis of L5-S1, unchanged. Moderate L5-S1 and then mild L4-L5 facet arthropathy. Mild L4-L5 and L5-S1 disk height loss. Minimal dextroscoliosis of the lumbar spine apex at L2. No evidence for acute fracture. No acute bone findings are seen. No evidence for pars defects. Suboptimal positioning to evaluate the neuroforamen. Sacroiliac joints are unremarkable. Right upper quadrant surgical clips. IMPRESSION: No acute bone findings. Chronic and degenerative changes. See above. RADIA
== END 2019-02-27 15:08 | disposition home or self-care (01) ==
LOC: DI.N 15:07
PROVIDERS: ATTEND Physician Assistant Medical
DX: M51.36 Other intervertebral disc degeneration, lumbar region (principal); M51.37 Other intervertebral disc degeneration, lumbosacral region; M47.817 Spondylosis without myelopathy or radiculopathy, lumbosacral region; M47.816 Spondylosis without myelopathy or radiculopathy, lumbar region; M41.86 Other forms of scoliosis, lumbar region
CPT/HCPCS: 72110

== ENCOUNTER 2019-03-13 11:32 | Outpatient (CLI) | payer MEDICARE, MEDICAID | END 2019-03-13 11:33 | disposition critical access hospital (66) | LOC: EMS 11:32 | PROVIDERS: ATTEND Surgery | DX: R11.2 Nausea with vomiting, unspecified (principal); R19.7 Diarrhea, unspecified; R10.9 Unspecified abdominal pain | CPT/HCPCS: A0425; A0427 ==

== ENCOUNTER 2019-03-13 11:57 | Emergency (ER) | payer MEDICARE, MEDICAID ==
--- NOTE | 2019-03-13 12:47 | ED Physician Documentation ---
PD HPI NVD - Stated complaint Stated Complaint: N/D - Chief complaint Chief Complaint: Abd Pain - History obtained from History obtained from: Patient - History of Present Illness Timing - onset: How many days ago Timing - duration: Days (4) Timing - details: Gradual onset Associated symptoms: Abdominal pain. No: Fever, Chest pain, Hematemesis, Melena, Hematochezia Contributing factors: No: Sick contact, Bad food Improved by: No: Eating, Laying still, Vomiting, BM, Position, Meds, Other Recently seen: Not recently seen - Additonal information Additional information: This is a 53-year-old man who is a known alcoholic presents with complaints that he is been having stomach problems with vomiting and diarrhea for the past 4 days. He says the diarrhea is just watery but he has not seen any blood in it. His last emesis was this morning. He try to drink Gatorade last night. He lives at home with his and said he normally drinks a 12 pack of beer a day. He admits to drinking 1 beer this morning. He has a history of pancreatitis and has been through an alcohol treatment program about 2 years ago. He is disabled due to his back. He complains that he is been lightheaded but has not passed out. He is experiencing some shortness of breath with cough productive of a little bit of cordon phlegm but no history of asthma. He denies chest pain and he has had no fever. No dysuria. Review of Systems Constitutional: denies: Fever Ears: denies: Ear pain Nose: denies: Congestion Throat: denies: Oral lesions / sores Cardiac: denies: Chest pain / pressure Respiratory: reports: Cough. denies: Dyspnea GI: reports: Abdominal Pain, Nausea, Vomiting, Diarrhea : denies: Dysuria, Incontinent Skin: denies: Rash Musculoskeletal: reports: Back pain (Chronic). denies: Neck pain Neurologic: reports: Generalized weakness. denies: Syncope Endocrine: denies: Polydypsia, Polyuria PD PAST MEDICAL HISTORY - Past Medical History Past Medical History: Yes GI: GERD, Pancreatitis Psych: Other Musculoskeletal: Chronic back pain - Past Surgical History Past Surgical History: Yes General: Cholecystectomy, Colonoscopy Ortho: Rotator cuff repair HEENT: Other - Present Medications Home Medications: Ambulatory Orders Medication Instructions Recorded Confirmed QUEtiapine [SEROquel] 50 mg ORAL QPM 08/14/14 10/14/17 Aspirin 325 mg PO DAILY 10/14/17 10/14/17 Famotidine [Pepcid] 20 mg PO DAILY 10/14/17 10/14/17 LORazepam [Ativan] 0.5 mg PO Q6H #16 tablet 10/16/17 Gabapentin 300 mg PO TID #12 capsule 07/31/18 chlordiazePOXIDE [Librium] 50 mg PO Q6H #16 capsule 03/13/19 - Allergies Allergies/Adverse Reactions: Allergies Allergy/AdvReac Type Severity Reaction Status Date / Time Penicillins AdvReac Unknown Rash Verified 03/13/19 12:03 - Social History Does the pt smoke?: No Smoking Status: Never smoker Does the pt drink ETOH?: Yes Does the pt have substance abuse?: No - Immunizations Immunizations are current?: Yes - POLST Patient has POLST: No POLST Status: Full Code PD ED PE NORMAL - Vitals Vital signs reviewed: Yes - General General: Alert and oriented X 3, No acute distress, Well developed/nourished, Other (Patient smells strongly of alcohol.) - HEENT HEENT: Atraumatic, PERRL, Pharynx benign, Other (Dry mucous membranes) - Neck Neck: No adenopathy, No JVD - Cardiac Cardiac: RRR, No murmur, Strong equal pulses - Respiratory Respiratory: No respiratory distress, Clear bilaterally - Abdomen Abdomen: Normal bowel sounds, Soft, No organomegaly, Other (Diffuse abdominal tenderness with guarding. No rebound.) - Derm Derm: Normal color, Warm and dry, No rash - Extremities Extremities: No deformity, No edema - Neuro Neuro: Alert and oriented X 3, glass setter 2-12 intact, No motor deficit, No sensory deficit, Normal speech, Other (Patient does have an obvious tremor of his upper extremities.) - Psych Psych: Normal mood, Normal affect Results - Vitals Vitals: Vital Signs - 24 hr 03/13/19 03/13/19 03/13/19 12:01 12:51 16:58 Temperature 2.7 C L 36.2 C L Heart Rate 111 H 105 H Respiratory 18 18 Rate Blood Pressure 159/83 H 148/90 H O2 Saturation 98 99 Oxygen O2 Source Room air - Labs Labs: Laboratory Tests 03/13/19 03/13/19 03/13/19 13:09 13:09 13:09 WBC 5.3 RBC 4.40 L Hgb 14.2 Hct 41.7 L MCV 94.8 H MCH 32.3 H MCHC 34.1 RDW 13.5 Plt Count 130 MPV 9.4 Neut # (Auto) 3.9 Lymph # (Auto) 0.8 L [place] # (Auto) 0.4 Eos # (Auto) 0.1 Baso # (Auto) 0.1 Absolute Nucleated RBC 0.00 Nucleated RBC % 0.0 PT 10.5 INR 0.9 Sodium 137 Potassium 4.0 Chloride 101 Carbon Dioxide 24 Anion Gap 12.0 BUN 7 Creatinine 0.6 Estimated GFR (MDRD) 140 Glucose 106 H Calcium 8.2 L Total Bilirubin 0.7 AST 175 H ALT 100 H Alkaline Phosphatase 71 Total Protein 6.9 Albumin 4.0 Globulin 2.9 Albumin/Globulin Ratio 1.4 Lipase 30 Urine Color Urine Clarity Urine pH Ur Specific [place] Urine Protein Urine Glucose (UA) Urine Ketones Urine Occult Blood Urine Nitrite Urine Bilirubin Urine Urobilinogen Ur Leukocyte Esterase Ur Microscopic Review Urine Culture Comments Ethyl Alcohol 212.1 03/13/19 15:18 WBC RBC Hgb Hct MCV MCH MCHC RDW Plt Count MPV Neut # (Auto) Lymph # (Auto) [place] # (Auto) Eos # (Auto) Baso # (Auto) Absolute Nucleated RBC Nucleated RBC % PT INR Sodium Potassium Chloride Carbon Dioxide Anion Gap BUN Creatinine Estimated GFR (MDRD) Glucose Calcium Total Bilirubin AST ALT Alkaline Phosphatase Total Protein Albumin Globulin Albumin/Globulin Ratio Lipase Urine Color YELLOW Urine Clarity CLEAR Urine pH 6.0 Ur Specific [place] 1.015 Urine Protein NEGATIVE Urine Glucose (UA) NEGATIVE Urine Ketones 15 H Urine Occult Blood NEGATIVE Urine Nitrite NEGATIVE Urine Bilirubin NEGATIVE Urine Urobilinogen 0.2 (NORMAL) Ur Leukocyte Esterase NEGATIVE Ur Microscopic Review NOT INDICATED Urine Culture Comments NOT INDICATED Ethyl Alcohol - Rads (name of study) R hip Radiology: EMP read contemporaneously, See rad report (Neg fracture) PD MEDICAL DECISION MAKING - ED course Complexity details: reviewed old records, reviewed results, re-evaluated patient, d/w patient ED course: Patient had an IV started given liter of fluids and then normal saline at 250 cc an hour. Liver enzymes AST and ALT are mildly elevated but the lipase is normal. CBC was essentially normal. Blood alcohol was 212. Patient was very tremulous when I was in the room and tachycardic initially so was given Ativan 2 mg after which I could hear him snoring. When I went back into discuss his labs and x-ray he was awake he was tremulous again said that he really was not feeling that much better was given an additional 2 mg of Ativan. We discussed the treatment plan from here and he would like to be discharged home with a prescription for Librium. Sounds to me like his may have given him an ultimatum about stopping drinking and she plans to eliminate all the alcohol in the house and is willing to administer his medications for him. He has had success with Librium in the past so I did agree to provide a prescription for a taper. He needs to follow-up with his primary care provider if he is unable to stop drinking on his own and consider another treatment program. Departure - Departure Disposition: 01 Home, Self Care Clinical Impression: Hip pain, right Alcohol withdrawal Qualifiers: Complication of substance-induced condition: uncomplicated Qualified Code(s): F10.230 - Alcohol dependence with withdrawal, uncomplicated Abdominal pain Qualifiers: Abdominal location: generalized Qualified Code(s): R10.84 - Generalized abdominal pain Condition: Good Instructions: ED Withdrawal Alcohol Follow-Up: Vinicius Bernabe PA-C [Primary Care Provider] - Prescriptions: chlordiazePOXIDE [Librium] 50 mg PO Q6H #16 capsule Comments: Take the Librium starting at 2 tablets every 6 hours for 24 hours and then 1 tablet every 6 hours for 2 days. If this is not controlling her symptoms, you develop seizure or begin hallucinating you need to return immediately to the emergency department as alcohol withdrawal can become quite serious if the symptoms are not adequately managed. Discharge Date/Time: 03/13/19 17:09
[2019-03-13] MEDS ORDERED: LACTATED RINGERS 1,000 ML IV STA (12:55)
[2019-03-13] MEDS ORDERED: LORazepam 2 MG/ML VIAL IVP STA ×2 (12:56→16:28)
[2019-03-13 13:17] LABS: BASOPHILS # (AUTO) 0.1 10^3/uL (0.0-0.1); BASOPHILS % (AUTO) 1.5 %; EOSINOPHILS # (AUTO) 0.1 10^3/uL (0.0-0.7); EOSINOPHILS % (AUTO) 1.9 %; HGB - HEMOGLOBIN 14.2 g/dL (14.0-18.0); LYMPHOCYTES # (AUTO) 0.8 10^3/uL (1.5-3.5); LYMPHOCYTES % (AUTO) 14.2 %; MEAN CORPUSCULAR HEMOGLOBIN 32.3 pg (27.0-31.0); MEAN CORPUSCULAR HGB CONC 34.1 g/dL (32.0-36.0); MEAN CORPUSCULAR VOLUME 94.8 fL (80.0-94.0); MEAN PLATELET VOLUME 9.4 fL (7.4-11.4); MONOCYTES # (AUTO) 0.4 10^3/uL (0.0-1.0); MONOCYTES % (AUTO) 7.2 %; NEUTROPHILS # (AUTO) 3.9 10^3/uL (1.5-6.6); NEUTROPHILS % (AUTO) 74.8 %; PLT - PLATELET COUNT 130 10^3/uL (130-450); RED CELL DISTRIBUTION WIDTH 13.5 % (12.0-15.0); WHITE BLOOD COUNT 5.3 x10^3/uL (4.8-10.8)
[2019-03-13 13:30] LABS: ALBUMIN/GLOBULIN RATIO 1.4 (1.0-2.2); BILIRUBIN,TOTAL 0.7 mg/dL (0.2-1.0); CALCIUM 8.2 mg/dL (8.5-10.3); CREATININE 0.6 mg/dL (0.6-1.2); INR 0.9 (0.8-1.2); PT - PROTHROMBIN TIME 10.5 secs (9.9-12.6); TOTAL PROTEIN 6.9 g/dL (6.7-8.2)
--- NOTE | 2019-03-13 14:10 | XRAY Report ---
Reason: r hip pain Procedure Date: 03/13/2019 Accession Number: [id number] / [id number] Procedure: XR - Hip w/Pelvis 2-3V RT CPT Code: Final Report FULL RESULT: EXAM: RIGHT HIP RADIOGRAPHY EXAM DATE: 03/13/2019 01:25 PM. CLINICAL HISTORY: R hip pain. COMPARISON: LUMBAR SPINE COMPLETE 02/27/2019 3:31 PM. TECHNIQUE: 2 views. FINDINGS: Bones: No acute fracture or bony lesion. Joints: Mild degenerative changes of the right hip joint. No dislocation. Degenerative changes of the lower lumbar spine and left hip joint. Soft Tissues: Normal. No soft tissue swelling. IMPRESSION: 1. No acute osseous abnormalities. Normal alignment. 2. Mild degenerative changes of the right hip joint. RADIA
[2019-03-13 15:28] LABS: BILIRUBIN,URINE NEGATIVE (NEGATIVE); GLUCOSE, URINE (UA) NEGATIVE (NEGATIVE); KETONES,URINE (UA) 15 mg/dL (NEGATIVE); LEUKOCYTE ESTERASE, URINE NEGATIVE (NEGATIVE); NITRITE,URINE NEGATIVE (NEGATIVE); OCCULT BLOOD,URINE NEGATIVE (NEGATIVE); PROTEIN,URINE NEGATIVE (NEGATIVE); UROBILINOGEN,URINE 0.2 (NORMAL) E.U./dL (NORMAL)
[2019-03-13 15:35] LABS: CLARITY,URINE CLEAR (CLEAR)
[2019-03-13 16:59] VITALS: BP 148/90
== END 2019-03-13 17:09 | disposition home or self-care (01) ==
LOC: ED 11:57
DX: M25.551 Pain in right hip (principal); F10.230 Alcohol dependence with withdrawal, uncomplicated; R10.84 Generalized abdominal pain
CPT/HCPCS: 36415; 73502; 80053; 81003; 83690; 85025; 85610; 96374; 96376; 99284; J2060; J7120; 80320; 81001; 87086

== ENCOUNTER 2019-06-11 17:31 | Outpatient (CLI) | payer MEDICARE, MEDICAID | END 2019-06-11 17:32 | disposition critical access hospital (66) | LOC: EMS 17:31 | PROVIDERS: ATTEND Surgery | DX: R45.851 Suicidal ideations (principal); Z72.89 Other problems related to lifestyle | CPT/HCPCS: A0425; A0429 ==

== ENCOUNTER 2019-06-11 17:52 | Emergency (ER) | payer MEDICARE, MEDICAID ==
--- NOTE | 2019-06-11 18:17 | ED Physician Documentation ---
History of Present Illness - Stated complaint Stated Complaint: SI/HBD - Chief complaint Chief Complaint: MHE - History obtained from History obtained from: Patient (53-year-old with chronic lower back pain and alcoholism Present to the emergency room with suicidal ideation. Patient in the emergency room was somewhat tearful describing his symptom. He has seen chronic back specialist, pain specialist," they cannot help me". He drank 12 pack of beer today from noon to police picked him up. In the emergency room he described suicidal ideation by stabbing his left groin within life. He had never had attempted suicide before. He appeared depressed.), EMS - History of Present Illness Timing: Prior to arrival, Today Review of Systems Ten Systems: 10 systems reviewed and negative Constitutional: reports: Reviewed and negative Eyes: reports: Reviewed and negative Ears: reports: Reviewed and negative Nose: reports: Reviewed and negative Throat: reports: Reviewed and negative Cardiac: reports: Reviewed and negative Respiratory: reports: Reviewed and negative GI: reports: Reviewed and negative : reports: Reviewed and negative Skin: reports: Reviewed and negative Musculoskeletal: reports: Reviewed and negative Neurologic: reports: Reviewed and negative Psychiatric: reports: Depressed, Suicidal Endocrine: reports: Reviewed and negative Immunocompromised: reports: Reviewed and negative PD PAST MEDICAL HISTORY - Past Medical History Past Medical History: Yes Cardiovascular: None Respiratory: None Neuro: None Endocrine/Autoimmune: None GI: GERD, Pancreatitis : None HEENT: None Psych: Other Musculoskeletal: Chronic back pain Derm: None Other Past Medical History: sciatica - Past Surgical History Past Surgical History: Yes General: Cholecystectomy, Colonoscopy Ortho: Rotator cuff repair HEENT: Other - Present Medications Home Medications: Ambulatory Orders Medication Instructions Recorded Confirmed QUEtiapine [SEROquel] 50 mg ORAL QPM 08/14/14 10/14/17 Aspirin 325 mg PO DAILY 10/14/17 10/14/17 Famotidine [Pepcid] 20 mg PO DAILY 10/14/17 10/14/17 LORazepam [Ativan] 0.5 mg PO Q6H #16 tablet 10/16/17 Gabapentin 300 mg PO TID #12 capsule 07/31/18 chlordiazePOXIDE [Librium] 50 mg PO Q6H #16 capsule 03/13/19 - Allergies Allergies/Adverse Reactions: Allergies Allergy/AdvReac Type Severity Reaction Status Date / Time Penicillins AdvReac Unknown Rash Verified 06/11/19 17:58 - Social History Does the pt smoke?: No Smoking Status: Current every day smoker Does the pt drink ETOH?: Yes ETOH Use: Beer Does the pt have substance abuse?: No - Immunizations Immunizations are current?: Yes - POLST Patient has POLST: No POLST Status: Full Code PD ED PE NORMAL - Vitals Vital signs reviewed: Yes - General General: Alert and oriented X 3, No acute distress, Well developed/nourished, Other (Somewhat depressed, And tearful) - HEENT HEENT: PERRL - Neck Neck: Supple, no meningeal sign, No bony TTP - Cardiac Cardiac: RRR, No murmur - Respiratory Respiratory: Clear bilaterally - Abdomen Abdomen: Normal bowel sounds, Soft, Non tender, Non distended, No organomegaly, Other (Anterior abdominal scar) - Back Back: Other (Gentle touch to the lower back elicit dramatic lower back pain, Pain is out of context to my examination) - Derm Derm: Normal color, Warm and dry - Extremities Extremities: No deformity - Neuro Neuro: Alert and oriented X 3, dental hygiene instructor 2-12 intact, No motor deficit, No sensory deficit, Normal speech Eye Opening: Spontaneous Motor: Obeys Commands Verbal: Oriented GCS Score: 15 - Psych Psych: Normal mood, Normal affect Results - Vitals Vitals: Vital Signs - 24 hr 06/11/19 06/11/19 17:58 18:34 Temperature 36.8 C 36.8 C Heart Rate 98 90 Respiratory 18 16 Rate Blood Pressure 136/94 H 126/87 H O2 Saturation 98 96 Oxygen O2 Source Room air PD MEDICAL DECISION MAKING - ED course Complexity details: d/w patient ED course: 53-year-old history of alcoholism, acute on chronic lower back pain, presented with suicidal ideation by stabbing his left groin. Alcohol level is elevated. Care is transferred at 7 PM with blood work, alcohol level, and social service consultation Pending. Departure - Departure Clinical Impression: Suicidal ideation Alcohol intoxication Qualifiers: Complication of substance-induced condition: uncomplicated Qualified Code(s): F10.920 - Alcohol use, unspecified with intoxication, uncomplicated
[2019-06-11 18:45] LABS: MUDS CUTOFF CONCENTRATIONS CUTOFF CONC BELOW:
[2019-06-11 18:45] LABS: BASOPHILS # (AUTO) 0.1 10^3/uL (0.0-0.1); BASOPHILS % (AUTO) 1.7 %; EOSINOPHILS # (AUTO) 0.2 10^3/uL (0.0-0.7); EOSINOPHILS % (AUTO) 2.8 %; HGB - HEMOGLOBIN 14.2 g/dL (14.0-18.0); LYMPHOCYTES # (AUTO) 1.7 10^3/uL (1.5-3.5); MEAN CORPUSCULAR HEMOGLOBIN 33.4 pg (27.0-31.0); MEAN CORPUSCULAR HGB CONC 33.6 g/dL (32.0-36.0); MEAN CORPUSCULAR VOLUME 99.5 fL (80.0-94.0); MEAN PLATELET VOLUME 9.3 fL (7.4-11.4); MONOCYTES # (AUTO) 0.5 10^3/uL (0.0-1.0); MONOCYTES % (AUTO) 9.9 %; NEUTROPHILS # (AUTO) 2.9 10^3/uL (1.5-6.6); NEUTROPHILS % (AUTO) 53.2 %; PLT - PLATELET COUNT 173 10^3/uL (130-450); RED BLOOD COUNT 4.25 10^6/uL (4.70-6.10); RED CELL DISTRIBUTION WIDTH 13.2 % (12.0-15.0); WHITE BLOOD COUNT 5.4 x10^3/uL (4.8-10.8)
[2019-06-11 18:55] LABS: BILIRUBIN,URINE NEGATIVE (NEGATIVE); GLUCOSE, URINE (UA) NEGATIVE (NEGATIVE); KETONES,URINE (UA) NEGATIVE (NEGATIVE); LEUKOCYTE ESTERASE, URINE NEGATIVE (NEGATIVE); NITRITE,URINE NEGATIVE (NEGATIVE); OCCULT BLOOD,URINE NEGATIVE (NEGATIVE); PROTEIN,URINE NEGATIVE (NEGATIVE); UROBILINOGEN,URINE 0.2 (NORMAL) E.U./dL (NORMAL)
[2019-06-11 18:58] LABS: CLARITY,URINE CLEAR (CLEAR)
[2019-06-11 18:59] LABS: ACETAMINOPHEN < 10 ug/mL (10-30); ALBUMIN 4.3 g/dL (3.2-5.5); ALBUMIN/GLOBULIN RATIO 1.5 (1.0-2.2); ALKALINE PHOSPHATASE 83 IU/L (42-121); ALT ALANINE AMINOTRANSFERASE 56 IU/L (10-60); AST ASPARTATE AMINOTRANSFERASE 104 IU/L (10-42); BILIRUBIN,TOTAL 0.3 mg/dL (0.2-1.0); BUN - BLOOD UREA NITROGEN 10 mg/dL (6-20); CALCIUM 8.6 mg/dL (8.5-10.3); CARBON DIOXIDE - CO2 27 mmol/L (21-32); CHLORIDE 101 mmol/L (101-111); CREATININE 0.7 mg/dL (0.6-1.2); GFR - MDRD 118 (>89); GLUCOSE 95 mg/dL (70-100); LIPASE 36 U/L (22-51); SALICYLATE < 6.0 mg/dL; SODIUM 144 mmol/L (135-145); TOTAL PROTEIN 7.1 g/dL (6.7-8.2)
[2019-06-11 19:07] LABS: AMPHETAMINE SCREEN,URINE NEGATIVE (NEGATIVE); BENZODIAZEPINES SCREEN, URINE POSITIVE (NEGATIVE); COCAINE SCREEN URINE NEGATIVE (NEGATIVE); METHADONE SCREEN, URINE NEGATIVE (NEGATIVE); METHAMPHETAMINES SCREEN, URINE NEGATIVE (NEGATIVE); OPIATE SCREEN, URINE POSITIVE (NEGATIVE); OXYCODONE SCREEN, URINE NEGATIVE (NEGATIVE); PROPOXYPHENE SCREEN, URINE NEGATIVE (NEGATIVE); TRICYCLIC ANTIDEPRESSANT,URINE NEGATIVE (NEGATIVE)
[2019-06-12] MEDS ORDERED: chlordiazePOXIDE 25 MG CAPSULE PO STA (05:33)
[2019-06-12] MEDS ORDERED: LORazepam 2 MG/ML VIAL IVP STA ×2 (08:19→13:11)
[2019-06-12 15:08] VITALS: BP 144/105
--- NOTE | 2019-06-12 16:01 | ED Physician Documentation ---
History of Present Illness - Stated complaint Stated Complaint: SI/HBD - Chief complaint Chief Complaint: MHE PD PAST MEDICAL HISTORY - Past Medical History Past Medical History: Yes Cardiovascular: None Respiratory: None Neuro: None Endocrine/Autoimmune: None GI: GERD, Pancreatitis : None HEENT: None Psych: Other Musculoskeletal: Chronic back pain Derm: None Other Past Medical History: sciatica - Past Surgical History Past Surgical History: Yes General: Cholecystectomy, Colonoscopy Ortho: Rotator cuff repair HEENT: Other - Present Medications Home Medications: Ambulatory Orders Medication Instructions Recorded Confirmed QUEtiapine [SEROquel] 50 mg ORAL QPM 08/14/14 06/11/19 Hydrocodone/Acetaminophen 1 tab PO Q4HR PRN 06/11/19 06/11/19 [Hydrocodone-Acetamin 5-325 mg] - Allergies Allergies/Adverse Reactions: Allergies Allergy/AdvReac Type Severity Reaction Status Date / Time Penicillins AdvReac Unknown Rash Verified 06/11/19 17:58 - Social History Does the pt smoke?: No Smoking Status: Current every day smoker Does the pt drink ETOH?: Yes ETOH Use: Beer Does the pt have substance abuse?: No - Immunizations Immunizations are current?: Yes - POLST Patient has POLST: No POLST Status: Full Code Results - Vitals Vitals: Vital Signs - 24 hr 06/11/19 06/11/19 06/11/19 17:58 18:34 19:12 Temperature 36.8 C 36.8 C 36.4 C L Heart Rate 98 90 104 H Respiratory 18 16 18 Rate Blood Pressure 136/94 H 126/87 H 124/99 H O2 Saturation 98 96 98 06/12/19 06/12/19 06/12/19 03:50 06:54 12:07 Temperature 35.9 C L 36.8 C 36.8 C Heart Rate 88 72 95 Respiratory 18 16 12 Rate Blood Pressure 117/102 H 138/72 H 136/86 H O2 Saturation 100 100 99 06/12/19 15:06 Temperature Heart Rate 129 H Respiratory 20 Rate Blood Pressure 144/105 H O2 Saturation 99 Oxygen O2 Source Room air - Labs Labs: Laboratory Tests 06/11/19 06/11/19 06/11/19 18:30 18:40 18:40 WBC 5.4 RBC 4.25 L Hgb 14.2 Hct 42.3 MCV 99.5 H MCH 33.4 H MCHC 33.6 RDW 13.2 Plt Count 173 MPV 9.3 Neut # (Auto) 2.9 Lymph # (Auto) 1.7 [place] # (Auto) 0.5 Eos # (Auto) 0.2 Baso # (Auto) 0.1 Absolute Nucleated RBC 0.00 Nucleated RBC % 0.0 Sodium 144 Potassium 3.9 Chloride 101 Carbon Dioxide 27 Anion Gap 16.0 H BUN 10 Creatinine 0.7 Estimated GFR (MDRD) 118 Glucose 95 Calcium 8.6 Total Bilirubin 0.3 AST 104 H ALT 56 Alkaline Phosphatase 83 Total Protein 7.1 Albumin 4.3 Globulin 2.8 Albumin/Globulin Ratio 1.5 Lipase 36 TSH Urine Color YELLOW Urine Clarity CLEAR Urine pH 6.0 Ur Specific [place] 1.010 Urine Protein NEGATIVE Urine Glucose (UA) NEGATIVE Urine Ketones NEGATIVE Urine Occult Blood NEGATIVE Urine Nitrite NEGATIVE Urine Bilirubin NEGATIVE Urine Urobilinogen 0.2 (NORMAL) Ur Leukocyte Esterase NEGATIVE Ur Microscopic Review NOT INDICATED Urine Culture Comments NOT INDICATED Salicylates < 6.0 Urine Opiates Screen POSITIVE H Ur Oxycodone Screen NEGATIVE Urine Methadone Screen NEGATIVE Ur Propoxyphene Screen NEGATIVE Acetaminophen < 10 L Ur Barbiturates Screen NEGATIVE Ur Tricyclics Screen NEGATIVE Ur Phencyclidine Scrn NEGATIVE Ur Amphetamine Screen NEGATIVE U Methamphetamines Scrn NEGATIVE U Benzodiazepines Scrn POSITIVE H Urine Cocaine Screen NEGATIVE U Cannabinoids Screen POSITIVE H Ethyl Alcohol 340.8 06/11/19 06/12/19 18:40 06:15 WBC RBC Hgb Hct MCV MCH MCHC RDW Plt Count MPV Neut # (Auto) Lymph # (Auto) [place] # (Auto) Eos # (Auto) Baso # (Auto) Absolute Nucleated RBC Nucleated RBC % Sodium Potassium Chloride Carbon Dioxide Anion Gap BUN Creatinine Estimated GFR (MDRD) Glucose Calcium Total Bilirubin AST ALT Alkaline Phosphatase Total Protein Albumin Globulin Albumin/Globulin Ratio Lipase TSH 5.05 Urine Color Urine Clarity Urine pH Ur Specific [place] Urine Protein Urine Glucose (UA) Urine Ketones Urine Occult Blood Urine Nitrite Urine Bilirubin Urine Urobilinogen Ur Leukocyte Esterase Ur Microscopic Review Urine Culture Comments Salicylates Urine Opiates Screen Ur Oxycodone Screen Urine Methadone Screen Ur Propoxyphene Screen Acetaminophen Ur Barbiturates Screen Ur Tricyclics Screen Ur Phencyclidine Scrn Ur Amphetamine Screen U Methamphetamines Scrn U Benzodiazepines Scrn Urine Cocaine Screen U Cannabinoids Screen Ethyl Alcohol 26.2 PD MEDICAL DECISION MAKING - ED course Complexity details: reviewed old records, reviewed results, re-evaluated patient, considered differential, d/w patient ED course: 53-year-old alcoholic male well-known to the emergency department has been boarded in the emergency department overnight with alcohol intoxication and suicidal ideation. This morning he is no longer suicidal he is quite shaky requests medication for the shakes and he is administered some Ativan intravenously. He is evaluated by the family welfare social work professor and arrangements were made for the patient to be seen at [facility] drug and alcohol addiction treatment [place]. Departure - Departure Disposition: 01 Home, Self Care Clinical Impression: Suicidal ideation Alcohol intoxication Qualifiers: Complication of substance-induced condition: uncomplicated Qualified Code(s): F10.920 - Alcohol use, unspecified with intoxication, uncomplicated Instructions: ED Stress React, ED Alcohol Intoxication Follow-Up: CORINA MELO MD [Primary Care Provider] - Discharge Date/Time: 06/12/19 15:08
== END 2019-06-12 15:08 | disposition home or self-care (01) ==
LOC: EDUNIT# → ED 17:52
DX: F32.9 Major depressive disorder, single episode, unspecified (principal); R45.851 Suicidal ideations; F10.229 Alcohol dependence with intoxication, unspecified; M54.5 Low back pain; G89.29 Other chronic pain; Z79.82 Long term (current) use of aspirin
CPT/HCPCS: 36415; 80053; 81003; 83690; 84443; 85025; 96374; 96376; 99283; 99284; A9270; J2060; 80306; 80307; 80320; 80329; 81001; 87086

== ENCOUNTER 2019-09-11 16:19 | Outpatient (CLI) | payer MEDICARE, MEDICAID | END 2019-09-11 16:20 | disposition critical access hospital (66) | LOC: EMS 16:19 | PROVIDERS: ATTEND Surgery | DX: R06.02 Shortness of breath (principal); R20.2 Paresthesia of skin; R47.81 Slurred speech | CPT/HCPCS: A0425; A0429 ==

== ENCOUNTER 2019-09-11 16:41 | Emergency (ER) | payer MEDICARE, MEDICAID ==
[2019-09-11] MEDS ORDERED: FOLIC ACID INJ 1 MG, THIAMINE INJ 100 MG, MAGNESIUM SULFATE 2 GM, MULTIVITAMIN 10 ML in... IV STA ×5 (17:05)
[2019-09-11] MEDS ORDERED: ONDANSETRON 4 MG/2 ML VIAL IVP STA (17:06)
[2019-09-11 17:12] LABS: BASOPHILS # (AUTO) 0.1 10^3/uL (0.0-0.1); BASOPHILS % (AUTO) 1.8 %; EOSINOPHILS # (AUTO) 0.1 10^3/uL (0.0-0.7); EOSINOPHILS % (AUTO) 1.6 %; HGB - HEMOGLOBIN 14.5 g/dL (14.0-18.0); LYMPHOCYTES # (AUTO) 2.3 10^3/uL (1.5-3.5); LYMPHOCYTES % (AUTO) 44.4 %; MEAN CORPUSCULAR VOLUME 91.4 fL (80.0-94.0); MEAN PLATELET VOLUME 9.5 fL (7.4-11.4); MONOCYTES # (AUTO) 0.3 10^3/uL (0.0-1.0); MONOCYTES % (AUTO) 5.8 %; NEUTROPHILS # (AUTO) 2.4 10^3/uL (1.5-6.6); NEUTROPHILS % (AUTO) 46.2 %; PLT - PLATELET COUNT 162 10^3/uL (130-450); RED BLOOD COUNT 4.67 10^6/uL (4.70-6.10); RED CELL DISTRIBUTION WIDTH 15.9 % (12.0-15.0); WHITE BLOOD COUNT 5.1 x10^3/uL (4.8-10.8)
[2019-09-11] MEDS ORDERED: THIAMINE 100 MG/1 ML 2 ML MDV ONE (17:14)
[2019-09-11] MEDS ORDERED: MAGNESIUM SULFATE 1 GM/2 ML VIAL ONE (17:14)
[2019-09-11] MEDS ORDERED: FOLIC ACID 5 MG/1 ML 10ML MDV ONE (17:14)
[2019-09-11 17:17] LABS: INR 0.9 (0.8-1.2); PT - PROTHROMBIN TIME 10.5 secs (9.9-12.6)
--- NOTE | 2019-09-11 17:22 | XRAY Report ---
Reason: chest pain Procedure Date: 09/11/2019 Accession Number: [id number] / [id number] Procedure: XR - Chest 1 View X-Ray CPT Code: 82065 Final Report FULL RESULT: EXAM: CHEST RADIOGRAPHY EXAM DATE: 09/11/2019 05:12 PM. CLINICAL HISTORY: Chest pain. COMPARISON: CHEST 1 VIEW 10/13/2017 2:00 PM. TECHNIQUE: 1 view. FINDINGS: Lungs/Pleura: No focal opacities evident. No pleural effusion. No pneumothorax. Mediastinum: Within exam limitations, the cardiomediastinal contour is normal. Other: None. IMPRESSION: Negative chest. RADIA
[2019-09-11 17:24] LABS: ACETAMINOPHEN < 10 ug/mL (10-30); ALBUMIN 4.4 g/dL (3.2-5.5); ALBUMIN/GLOBULIN RATIO 1.3 (1.0-2.2); ALKALINE PHOSPHATASE 69 IU/L (42-121); ALT ALANINE AMINOTRANSFERASE 43 IU/L (10-60); AST ASPARTATE AMINOTRANSFERASE 97 IU/L (10-42); BILIRUBIN,TOTAL 0.6 mg/dL (0.2-1.0); BUN - BLOOD UREA NITROGEN 7 mg/dL (6-20); CALCIUM 8.5 mg/dL (8.5-10.3); CARBON DIOXIDE - CO2 22 mmol/L (21-32); CHLORIDE 104 mmol/L (101-111); CREATININE 0.7 mg/dL (0.6-1.2); GLUCOSE 106 mg/dL (70-100); LIPASE 36 U/L (22-51); MAGNESIUM 2.2 mg/dL (1.7-2.8); SALICYLATE < 6.0 mg/dL; SODIUM 140 mmol/L (135-145); TOTAL PROTEIN 7.8 g/dL (6.7-8.2)
[2019-09-11] MEDS ORDERED: LORazepam 2 MG/ML VIAL IVP STA ×2 (18:27→20:01)
--- NOTE | 2019-09-11 18:30 | ED Physician Documentation ---
History of Present Illness - Stated complaint Stated Complaint: SI/ETOH - Chief complaint Chief Complaint: General - History obtained from History obtained from: Patient - History of Present Illness Timing: How many days ago (5 days of drinking) Pain level now: 0 - Additonal information Additional information: the Patient states he was at home, has been drinking for the past 5 days, after being sober for 8 months. He relates that he started drinking again after he lost a close family friend who was like a mother to him. Patient states he has been drinking about 3 shots of whiskey a day plus a 12 pack of beer. He said he was at home with his helping a female on the groceries on the back of the car when he fell and hit the back of her trunk of her car in the front of his forehead. Patient states he has had no loss of consciousness state, no headache. Patient denies being suicidal at this point, denies being suicidal at all today or over the past 5 days while drinking. Review of Systems Ten Systems: 10 systems reviewed and negative PD PAST MEDICAL HISTORY - Past Medical History Past Medical History: Yes Cardiovascular: None Respiratory: None Neuro: None Endocrine/Autoimmune: None GI: GERD, Pancreatitis : None HEENT: None Psych: Anxiety, Other Musculoskeletal: Chronic back pain Derm: None Other Past Medical History: ETOH - Past Surgical History Past Surgical History: Yes General: Cholecystectomy, Colonoscopy Ortho: Rotator cuff repair HEENT: Other - Present Medications Home Medications: Ambulatory Orders Medication Instructions Recorded Confirmed QUEtiapine [SEROquel] 50 mg ORAL QPM 08/14/14 06/11/19 Hydrocodone/Acetaminophen 1 tab PO Q4HR PRN 06/11/19 06/11/19 [Hydrocodone-Acetamin 5-325 mg] - Allergies Allergies/Adverse Reactions: Allergies Allergy/AdvReac Type Severity Reaction Status Date / Time Penicillins AdvReac Unknown Rash Verified 09/11/19 17:00 - Social History Does the pt smoke?: Yes Smoking Status: Current every day smoker Does the pt drink ETOH?: Yes Does the pt have substance abuse?: No - Immunizations Immunizations are current?: Yes - POLST Patient has POLST: No POLST Status: Full Code PD ED PE NORMAL - General General: Alert and oriented X 3, No acute distress, Well developed/nourished - HEENT HEENT: Atraumatic, PERRL, EOMI, Ears normal, Moist mucous membranes - Neck Neck: Supple, no meningeal sign, No adenopathy - Cardiac Cardiac: RRR, No murmur - Respiratory Respiratory: No respiratory distress, Clear bilaterally - Abdomen Abdomen: Normal bowel sounds, Soft, Non tender, Non distended - Back Back: No CVA TTP - Derm Derm: Normal color, Warm and dry - Extremities Extremities: No deformity, Normal ROM s pain, No edema - Neuro Neuro: Alert and oriented X 3, oil deliverer 2-12 intact Eye Opening: Spontaneous Motor: Obeys Commands Verbal: Oriented GCS Score: 15 Results - Vitals Vitals: Vital Signs - 24 hr 09/11/19 09/11/19 09/11/19 17:00 19:50 20:54 Temperature 37.4 C Heart Rate 108 H 89 92 Respiratory 17 18 20 Rate Blood Pressure 142/79 H 133/78 H 125/75 O2 Saturation 98 98 98 Oxygen O2 Source Room air - Labs Labs: Laboratory Tests 09/11/19 09/11/19 09/11/19 17:00 17:00 17:00 WBC 5.1 RBC 4.67 L Hgb 14.5 Hct 42.7 MCV 91.4 MCH 31.0 MCHC 34.0 RDW 15.9 H Plt Count 162 MPV 9.5 Neut # (Auto) 2.4 Lymph # (Auto) 2.3 [place] # (Auto) 0.3 Eos # (Auto) 0.1 Baso # (Auto) 0.1 Absolute Nucleated RBC 0.00 Nucleated RBC % 0.0 PT 10.5 INR 0.9 Sodium 140 Potassium 4.1 Chloride 104 Carbon Dioxide 22 Anion Gap 14.0 H BUN 7 Creatinine 0.7 Estimated GFR (MDRD) 117 Glucose 106 H Calcium 8.5 Magnesium 2.2 Total Bilirubin 0.6 AST 97 H ALT 43 Alkaline Phosphatase 69 Total Protein 7.8 Albumin 4.4 Globulin 3.4 Albumin/Globulin Ratio 1.3 Lipase 36 TSH Urine Color Urine Clarity Urine pH Ur Specific [place] Urine Protein Urine Glucose (UA) Urine Ketones Urine Occult Blood Urine Nitrite Urine Bilirubin Urine Urobilinogen Ur Leukocyte Esterase Ur Microscopic Review Urine Culture Comments Salicylates < 6.0 Urine Opiates Screen Ur Oxycodone Screen Urine Methadone Screen Ur Propoxyphene Screen Acetaminophen < 10 L Ur Barbiturates Screen Ur Tricyclics Screen Ur Phencyclidine Scrn Ur Amphetamine Screen U Methamphetamines Scrn U Benzodiazepines Scrn Urine Cocaine Screen U Cannabinoids Screen Ethyl Alcohol 455.5 09/11/19 09/11/19 17:00 18:00 WBC RBC Hgb Hct MCV MCH MCHC RDW Plt Count MPV Neut # (Auto) Lymph # (Auto) [place] # (Auto) Eos # (Auto) Baso # (Auto) Absolute Nucleated RBC Nucleated RBC % PT INR Sodium Potassium Chloride Carbon Dioxide Anion Gap BUN Creatinine Estimated GFR (MDRD) Glucose Calcium Magnesium Total Bilirubin AST ALT Alkaline Phosphatase Total Protein Albumin Globulin Albumin/Globulin Ratio Lipase TSH 4.50 Urine Color YELLOW Urine Clarity CLEAR Urine pH 5.5 Ur Specific [place] <=1.005 Urine Protein NEGATIVE Urine Glucose (UA) NEGATIVE Urine Ketones NEGATIVE Urine Occult Blood NEGATIVE Urine Nitrite NEGATIVE Urine Bilirubin NEGATIVE Urine Urobilinogen 0.2 (NORMAL) Ur Leukocyte Esterase NEGATIVE Ur Microscopic Review NOT INDICATED Urine Culture Comments NOT INDICATED Salicylates Urine Opiates Screen POSITIVE H Ur Oxycodone Screen NEGATIVE Urine Methadone Screen NEGATIVE Ur Propoxyphene Screen NEGATIVE Acetaminophen Ur Barbiturates Screen NEGATIVE Ur Tricyclics Screen NEGATIVE Ur Phencyclidine Scrn NEGATIVE Ur Amphetamine Screen NEGATIVE U Methamphetamines Scrn NEGATIVE U Benzodiazepines Scrn NEGATIVE Urine Cocaine Screen NEGATIVE U Cannabinoids Screen NEGATIVE Ethyl Alcohol - Rads (name of study) No standard instances Radiology: Final report received (Normal chest x-ray), See rad report PD MEDICAL DECISION MAKING - ED course Complexity details: reviewed results, re-evaluated patient, considered differential, d/w patient ED course: Patient is remained nonsuicidal while in the emergency room today. He states he never was suicidal. He is only here because his called the ambulance because he been drinking and fell and hit his head. Patient has remained cooperative during his emergency stay today. After one dose of ativan the patient feels he is ready to go home. His chemistry, CBC, and urinalysis came back unremarkable. Patient has been up and ambulating well in the ER this evening to use the restroom he is steady on his feet without any assist. I discussed with the patient the importance of him getting back into AA meeting and to stop drinking. Patient states that he has Librium at home that he will start taking as previously prescribed. Instructed the patient not to drink anymore tonight this is going to take him only 15 hours for his alcohol level to come back down to normal. Also advised patient not to take any ibuprofen for the next couple of days due to the alcohol in his blood. Patient verbalized understanding. Departure - Departure Disposition: 01 Home, Self Care Clinical Impression: Acute alcohol intoxication Qualifiers: Complication of substance-induced condition: uncomplicated Qualified Code(s): F10.920 - Alcohol use, unspecified with intoxication, uncomplicated Condition: Fair Instructions: ED Alcohol Abuse, ED Alcohol Intoxication Comments: When you get home tonight and when she did go to bed, do not can drink anymore alcohol. As I discussed with the is probably can take about 15 hours for the alcohol level to come back down to normal. Tomorrow he can start taking Librium should he feel that you are going through withdrawals. I strongly encourage you to get back involved in AA meetings, find a new sponsor. Given sober for many months prior to this, and you can do it again. I do not want you to take any ibuprofen the next couple of days due to the alcohol in your blood. You can use Tylenol for headaches.
[2019-09-11 18:35] LABS: MUDS CUTOFF CONCENTRATIONS CUTOFF CONC BELOW:
[2019-09-11 18:38] LABS: BILIRUBIN,URINE NEGATIVE (NEGATIVE); GLUCOSE, URINE (UA) NEGATIVE (NEGATIVE); KETONES,URINE (UA) NEGATIVE (NEGATIVE); LEUKOCYTE ESTERASE, URINE NEGATIVE (NEGATIVE); NITRITE,URINE NEGATIVE (NEGATIVE); OCCULT BLOOD,URINE NEGATIVE (NEGATIVE); PH,URINE 5.5 PH (5.0-7.5); PROTEIN,URINE NEGATIVE (NEGATIVE); UROBILINOGEN,URINE 0.2 (NORMAL) E.U./dL (NORMAL)
[2019-09-11 18:39] LABS: CLARITY,URINE CLEAR (CLEAR)
[2019-09-11 18:48] LABS: AMPHETAMINE SCREEN,URINE NEGATIVE (NEGATIVE); BENZODIAZEPINES SCREEN, URINE NEGATIVE (NEGATIVE); COCAINE SCREEN URINE NEGATIVE (NEGATIVE); METHADONE SCREEN, URINE NEGATIVE (NEGATIVE); METHAMPHETAMINES SCREEN, URINE NEGATIVE (NEGATIVE); OPIATE SCREEN, URINE POSITIVE (NEGATIVE); OXYCODONE SCREEN, URINE NEGATIVE (NEGATIVE); PROPOXYPHENE SCREEN, URINE NEGATIVE (NEGATIVE); TRICYCLIC ANTIDEPRESSANT,URINE NEGATIVE (NEGATIVE)
[2019-09-11 22:15] VITALS: BP 130/85
== END 2019-09-11 22:28 | disposition home or self-care (01) ==
LOC: EDUNIT# → ED 16:41
DX: F10.129 Alcohol abuse with intoxication, unspecified (principal); F17.200 Nicotine dependence, unspecified, uncomplicated
CPT/HCPCS: 36415; 71045; 80053; 81003; 83690; 83735; 84443; 85025; 85610; 96374; 96375; 96376; 99281; 99284; J2060; J3411; 80306; 80307; 80320; 80329; 81001; 87086

== ENCOUNTER 2019-10-02 08:53 | Outpatient (CLI) | payer MEDICARE, MEDICAID | END 2019-10-02 08:54 | disposition critical access hospital (66) | LOC: EMS 08:53 | PROVIDERS: ATTEND Surgery | DX: R41.82 Altered mental status, unspecified (principal); R52 Pain, unspecified | CPT/HCPCS: A0425; A0429 ==

== ENCOUNTER 2019-10-02 09:14 | Emergency (ER) | payer MEDICARE, MEDICAID ==
[2019-10-02] MEDS ORDERED: CHERRY SYRUP 10 ML UDC PO ONE (10:05)
[2019-10-02] MEDS ORDERED: KETOROLAC 60 MG/2 ML VIAL IM STA (10:05)
[2019-10-02] MEDS ORDERED: DEXAMETHASONE 10 MG/ML VIAL PO STA (10:05)
--- NOTE | 2019-10-02 10:08 | ED Physician Documentation ---
PD HPI BACK PAIN - Stated complaint Stated Complaint: BACK PX - Chief complaint Chief Complaint: Back Pain - History obtained from History obtained from: Patient - History of Present Illness Timing - onset: How many months ago (3) Timing - duration: Months (3) Timing - details: Gradual onset, Still present, Waxing and waning Location: Lower, Right Quality: Pain, Spasm, Sharp, Similar to prior episodes Associated symptoms: Numbness. No: Fever, Weakness, Incontinent of urine, Unable to urinate, Hematuria, Incontinent of stool Improves with: Rest, Position, Meds Worsened by: Movement Similar symptoms before: Diagnosis (lumbar disc disease), Treatment (has had epidural steroid injection last 3 months ago seemed to make this worse.) Recently seen: Not recently seen - Additional information Additional information: 54-year-old alcoholic male has had back pain in his lower back for the past several months. He has had worsening pain is been in to see the doctor to get epidural steroid injection he had 2 of these injections and they did not seem to help much. He felt that it made it even worse. He is taken some Naprosyn this morning he does have some Vicodin at home none of these seem to be helping. He has a referral to a surgeon and has not heard back. He has had delay in his care secondary to the coronavirus. He has taken cyclobenzaprine in the past he does not have any now. Review of Systems Constitutional: denies: Fever, Chills Eyes: denies: Decreased vision Ears: denies: Ear pain Throat: denies: Sore throat Cardiac: denies: Chest pain / pressure, Palpitations Respiratory: denies: Dyspnea, Cough GI: denies: Abdominal Pain, Nausea, Vomiting : denies: Dysuria, Frequency Musculoskeletal: reports: Back pain, Extremity pain. denies: Neck pain Neurologic: reports: Numbness. denies: Generalized weakness, Focal weakness PD PAST MEDICAL HISTORY - Past Medical History Cardiovascular: None Respiratory: None Neuro: None Endocrine/Autoimmune: None GI: GERD, Pancreatitis : None HEENT: None Psych: Anxiety, Other Musculoskeletal: Chronic back pain Derm: None - Past Surgical History Past Surgical History: Yes General: Cholecystectomy, Colonoscopy Ortho: Rotator cuff repair HEENT: Other - Present Medications Home Medications: Ambulatory Orders Medication Instructions Recorded Confirmed QUEtiapine [SEROquel] 50 mg ORAL QPM 08/14/14 06/11/19 Hydrocodone/Acetaminophen 1 tab PO Q4HR PRN 06/11/19 06/11/19 [Hydrocodone-Acetamin 5-325 mg] Cyclobenzaprine [Flexeril] 10 mg PO TID PRN #20 tablet 10/02/19 - Allergies Allergies/Adverse Reactions: Allergies Allergy/AdvReac Type Severity Reaction Status Date / Time Penicillins AdvReac Unknown Rash Verified 10/02/19 09:29 - Social History Does the pt smoke?: Yes Smoking Status: Current every day smoker Does the pt drink ETOH?: Yes Does the pt have substance abuse?: No - Immunizations Immunizations are current?: Yes - POLST Patient has POLST: No POLST Status: Full Code PD ED PE NORMAL - Vitals Vital signs reviewed: Yes (Hypertensive and tachycardic) - General General: Alert and oriented X 3, No acute distress, Well developed/nourished - HEENT HEENT: Atraumatic, PERRL, EOMI - Neck Neck: Supple, no meningeal sign - Respiratory Respiratory: No respiratory distress - Back Back: No CVA TTP, No spinal TTP, Other (There is paraspinous muscle tenderness to the right lower lumbar spine extending into the sciatic notch there is no midline point tenderness.) - Derm Derm: Normal color, Warm and dry, No rash - Extremities Extremities: No deformity, No edema - Neuro Neuro: Alert and oriented X 3, boiler coverer 2-12 intact, No motor deficit, No sensory deficit, Normal speech Eye Opening: Spontaneous Motor: Obeys Commands Verbal: Oriented GCS Score: 15 - Psych Psych: Normal mood, Normal affect Results - Vitals Vitals: Vital Signs - 24 hr 10/02/19 09:23 Temperature 36.8 C Heart Rate 105 H Respiratory 16 Rate Blood Pressure 140/70 H O2 Saturation 99 Oxygen O2 Source Room air PD MEDICAL DECISION MAKING - ED course Complexity details: reviewed old records, considered differential, d/w patient ED course: 54-year-old alcoholic male appears sober today and he is complaining of severe lower back pain with sciatica into the right. This is a chronic problem and he is not getting relief. Today he is administered dexamethasone 10 mg orally 60 mg of Toradol IM and we will add cyclobenzaprine into his medication regimen. He does state that he is still drinking about 3 beers per day and he does not take his Vicodin when he is drinking. Departure - Departure Disposition: 01 Home, Self Care Clinical Impression: Sciatica Qualifiers: Laterality: right Qualified Code(s): M54.31 - Sciatica, right side Condition: Stable Instructions: ED Sciatica Follow-Up: [facility] [Provider Group] Prescriptions: Cyclobenzaprine [Flexeril] 10 mg PO TID PRN #20 tablet PRN Reason: Spasms
[2019-10-02 10:36] VITALS: BP 130/97
== END 2019-10-02 10:50 | disposition home or self-care (01) ==
LOC: EDUNIT# → ED 09:14
DX: M54.31 Sciatica, right side (principal); F17.200 Nicotine dependence, unspecified, uncomplicated
CPT/HCPCS: 96372; 99283; 99284; A9270

== ENCOUNTER 2019-11-04 07:13 | Outpatient (CLI) | payer MEDICARE, MEDICAID ==
--- NOTE | 2019-11-04 08:58 | Ultrasound Report ---
PROCEDURE: Abdomen Complete INDICATIONS: Abdominal pain TECHNIQUE: Real-time scanning was performed of the abdominal and retroperitoneal organs, with image documentatio n. COMPARISON: None. FINDINGS: Liver: The liver is normal in size. There is no liver mass demonstrated. Diffusely increased hepatic parenchymal echogenicity, consistent with hepatic steatosis. Normal caliber main portal vein with nor mal flow direction. Gallbladder: Status post cholecystectomy. Biliary ducts: No intrahepatic or extrahepatic biliary ductal dilatation. Pancreas: Visualized portions of the pancreas are sonographically normal. Spleen: Spleen is normal in size and homogeneous in echotexture. Kidneys: Kidneys are normal in size and echotexture. No hydronephrosis. No shadowing calculus. No so nographic evidence of renal mass. Aorta: Visualized aorta is normal in caliber at less than 3 cm. Iliacs: Proximal common iliac arteries are normal in caliber at less than 2.5 cm. IVC: Intrahepatic inferior vena cava is patent. Miscellaneous: No free abdominal fluid. Focused sonographic evaluation in the patient's reported ar ea of interest along the left flank demonstrates no mass or fluid collection. IMPRESSION: Diffuse hepatic steatosis. Status post cholecystectomy. No acute finding or finding to explain pain. Reviewed by: Sharif Fitch MD on 11/04/2019 8:57 AM PDT Approved by: Sharif Fitch MD on 11/04/2019 8:57 AM PDT Station ID: [id number]
== END 2019-11-04 07:14 | disposition home or self-care (01) ==
LOC: DI 07:13
PROVIDERS: ATTEND Family Medicine
DX: R10.9 Unspecified abdominal pain (principal); K76.0 Fatty (change of) liver, not elsewhere classified; Z90.49 Acquired absence of other specified parts of digestive tract
CPT/HCPCS: 36415; 76700; 80053; 82150; 83690; 85025

== ENCOUNTER 2019-11-11 08:21 | Outpatient (CLI) | payer MEDICARE, MEDICAID | END 2019-11-11 08:22 | disposition critical access hospital (66) | LOC: EMS 08:21 | PROVIDERS: ATTEND Surgery | DX: M54.9 Dorsalgia, unspecified (principal); R11.2 Nausea with vomiting, unspecified | CPT/HCPCS: A0425; A0427 ==

== ENCOUNTER 2019-11-11 08:41 | Inpatient (IN) | payer MEDICARE, MEDICAID ==
[2019-11-11] MEDS ORDERED: PANTOPRAZOLE 40 MG VIAL IVP STA (08:50)
[2019-11-11] MEDS ORDERED: LORazepam 2 MG/ML VIAL IVP STA ×2 (08:50→11:14)
[2019-11-11] MEDS ORDERED: FOLIC ACID INJ 1 MG, THIAMINE INJ 100 MG, MAGNESIUM SULFATE 2 GM, MULTIVITAMIN 10 ML in... IV STA ×5 (08:50)
--- NOTE | 2019-11-11 08:59 | ED Physician Documentation ---
History of Present Illness - Stated complaint Stated Complaint: N/V - Chief complaint Chief Complaint: Abd Pain - History obtained from History obtained from: Patient - History of Present Illness Timing: How many days ago (2) Pain level max: 5 Pain level now: 5 - Additonal information Additional information: 54-year-old male presents to the emergency department with vomiting for the past 2 days. He is an alcoholic, states his last intake of alcohol was last night. States he could drink only about half his normal amount last night. Nothing makes it better or worse. No blood in the stool. No blood in the vomit. Received Zofran with EMS. Has crampy epigastric abdominal pain. No fevers. Review of Systems Ten Systems: 10 systems reviewed and negative Constitutional: denies: Fever, Chills Nose: denies: Rhinorrhea / runny nose, Congestion Throat: denies: Sore throat Cardiac: denies: Chest pain / pressure Respiratory: denies: Cough, Wheezing : denies: Dysuria Skin: reports: Rash (Patient states he has a rash to his left flank for the past several days, reports that it is painful) Musculoskeletal: denies: Neck pain, Back pain Neurologic: denies: Headache PD PAST MEDICAL HISTORY - Past Medical History Cardiovascular: None Respiratory: None Neuro: None Endocrine/Autoimmune: None GI: GERD, Pancreatitis : None HEENT: None Psych: Anxiety, Other Musculoskeletal: Chronic back pain Derm: None - Past Surgical History Past Surgical History: Yes General: Cholecystectomy, Colonoscopy Ortho: Rotator cuff repair HEENT: Other - Present Medications Home Medications: Ambulatory Orders Medication Instructions Recorded Confirmed QUEtiapine [SEROquel] 50 mg ORAL QPM 08/14/14 11/11/19 Hydrocodone/Acetaminophen 1 tab PO QID 06/11/19 11/11/19 [Hydrocodone-Acetamin 5-325 mg] Cyclobenzaprine [Flexeril] 10 mg PO TID PRN #20 tablet 10/02/19 11/11/19 Acamprosate Calcium 333 mg PO DAILY 11/11/19 11/11/19 - Allergies Allergies/Adverse Reactions: Allergies Allergy/AdvReac Type Severity Reaction Status Date / Time Penicillins AdvReac Unknown Rash Verified 10/02/19 09:29 - Social History Does the pt smoke?: Yes Smoking Status: Current every day smoker Does the pt drink ETOH?: Yes ETOH Use: Beer Does the pt have substance abuse?: No - Immunizations Immunizations are current?: Yes - POLST Patient has POLST: No POLST Status: Full Code PD ED PE NORMAL - Vitals Vital signs reviewed: Yes - General General: Alert and oriented X 3, No acute distress - HEENT HEENT: PERRL, Moist mucous membranes, Pharynx benign - Neck Neck: Supple, no meningeal sign - Cardiac Cardiac: RRR, Strong equal pulses - Respiratory Respiratory: No respiratory distress, Clear bilaterally - Abdomen Abdomen: Normal bowel sounds, Soft, Non tender, Non distended - Back Back: Other (Large erythematous area to the left flank, no blistering. No vesicles, no pustules.) - Derm Derm: Warm and dry - Extremities Extremities: No edema, No calf tenderness / cord - Neuro Neuro: Alert and oriented X 3 - Psych Psych: Normal mood, Normal affect Results - Vitals Vitals: Vital Signs - 24 hr 11/11/19 11/11/19 11/11/19 08:35 10:37 12:26 Temperature 37.4 C Heart Rate 97 97 99 Respiratory 20 14 18 Rate Blood Pressure 143/85 H 138/80 H 127/79 O2 Saturation 98 100 98 11/11/19 14:03 Temperature Heart Rate 109 H Respiratory 24 Rate Blood Pressure 134/85 H O2 Saturation 98 Oxygen O2 Source Room air - Labs Labs: Laboratory Tests 11/11/19 11/11/19 11/11/19 09:05 09:05 09:05 WBC 16.8 H RBC 3.77 L Hgb 12.2 L Hct 36.5 L MCV 96.8 H MCH 32.4 H MCHC 33.4 RDW 13.9 Plt Count 193 MPV 9.1 Neut # (Auto) 15.1 H Lymph # (Auto) 0.7 L [place] # (Auto) 0.8 Eos # (Auto) 0.0 Baso # (Auto) 0.1 Absolute Nucleated RBC 0.00 Band Neuts % (Manual) Not Reportable Abnorm Lymph % (Manual) Not Reportable Nucleated RBC % 0.0 Neutrophils # (Manual) Not Reportable Lymphocytes # (Manual) Not Reportable Monocytes # (Manual) Not Reportable Eosinophils # (Manual) Not Reportable Basophils # (Manual) Not Reportable Differential Comment MANUAL=AUTO DIFF Platelet Estimate NORMAL (130-450,000) Platelet Morphology NORMAL APPEARANCE RBC Morph Micro Appear NORMAL APPEARANCE Sodium 132 L Potassium 4.0 Chloride 94 L Carbon Dioxide 24 Anion Gap 14.0 H BUN 13 Creatinine 0.7 Estimated GFR (MDRD) 117 Glucose 164 H Calcium 8.3 L Phosphorus 2.1 L Magnesium 2.0 Total Bilirubin 0.7 AST 33 ALT 16 Alkaline Phosphatase 85 Total Protein 7.4 Albumin 3.4 Globulin 4.0 Albumin/Globulin Ratio 0.9 L Lipase 29 TSH 1.45 Urine Color Urine Clarity Urine pH Ur Specific [place] Urine Protein Urine Glucose (UA) Urine Ketones Urine Occult Blood Urine Nitrite Urine Bilirubin Urine Urobilinogen Ur Leukocyte Esterase Ur Microscopic Review Urine Culture Comments Salicylates < 6.0 Urine Opiates Screen Ur Oxycodone Screen Urine Methadone Screen Ur Propoxyphene Screen Acetaminophen < 10 L Ur Barbiturates Screen Ur Tricyclics Screen Ur Phencyclidine Scrn Ur Amphetamine Screen U Methamphetamines Scrn U Benzodiazepines Scrn Urine Cocaine Screen U Cannabinoids Screen Ethyl Alcohol 11.1 11/11/19 13:10 WBC RBC Hgb Hct MCV MCH MCHC RDW Plt Count MPV Neut # (Auto) Lymph # (Auto) [place] # (Auto) Eos # (Auto) Baso # (Auto) Absolute Nucleated RBC Band Neuts % (Manual) Abnorm Lymph % (Manual) Nucleated RBC % Neutrophils # (Manual) Lymphocytes # (Manual) Monocytes # (Manual) Eosinophils # (Manual) Basophils # (Manual) Differential Comment Platelet Estimate Platelet Morphology RBC Morph Micro Appear Sodium Potassium Chloride Carbon Dioxide Anion Gap BUN Creatinine Estimated GFR (MDRD) Glucose Calcium Phosphorus Magnesium Total Bilirubin AST ALT Alkaline Phosphatase Total Protein Albumin Globulin Albumin/Globulin Ratio Lipase TSH Urine Color YELLOW Urine Clarity CLEAR Urine pH 6.5 Ur Specific [place] 1.025 Urine Protein TRACE Urine Glucose (UA) NEGATIVE Urine Ketones 15 H Urine Occult Blood NEGATIVE Urine Nitrite NEGATIVE Urine Bilirubin NEGATIVE Urine Urobilinogen 0.2 (NORMAL) Ur Leukocyte Esterase NEGATIVE Ur Microscopic Review NOT INDICATED Urine Culture Comments NOT INDICATED Salicylates Urine Opiates Screen POSITIVE H Ur Oxycodone Screen NEGATIVE Urine Methadone Screen NEGATIVE Ur Propoxyphene Screen NEGATIVE Acetaminophen Ur Barbiturates Screen NEGATIVE Ur Tricyclics Screen POSITIVE H Ur Phencyclidine Scrn NEGATIVE Ur Amphetamine Screen NEGATIVE U Methamphetamines Scrn NEGATIVE U Benzodiazepines Scrn POSITIVE H Urine Cocaine Screen NEGATIVE U Cannabinoids Screen NEGATIVE Ethyl Alcohol - Rads (name of study) CT abd/pelvis Radiology: Prelim report reviewed, EMP read contemporaneously, See rad report (1. No definite acute intra-abdominal abnormality. Specifically, no evidence of bowel obstruction. 2. Asymmetric subcutaneous fat stranding and skin thickening in the left abdominal wall compatible with reported history of cellulitis. No abscess collection identified. 3. Hepatic steatosis. ) PD MEDICAL DECISION MAKING - ED course Complexity details: reviewed results, re-evaluated patient, considered differential, d/w patient ED course: Patient continues to have nausea and vomiting in the emergency department despite Phenergan, Zofran and multiple doses of Ativan. He also has a large area of cellulitis on his back. Was started on IV antibiotics for this. He does have a leukocytosis, will need further inpatient treatment given the large size of the cellulitis combined with the intractable nausea and vomiting. Discussed the case with Dr. Arboleda, hospitalist who accepts This document was made in part using voice recognition software. While efforts are made to proofread this document, sound alike and grammatical errors may occur. Departure - Departure Disposition: [facility] DC/Xfer Clinical Impression: Alcoholism Cellulitis Qualifiers: Site of cellulitis: trunk Site of cellulitis of trunk: back Qualified Code(s): L03.312 - Cellulitis of back [any part except buttock] Gastritis Qualifiers: Gastritis type: alcoholic Chronicity: acute Gastritis bleeding: without bleeding Qualified Code(s): K29.20 - Alcoholic gastritis without bleeding Intractable vomiting Qualifiers: Vomiting type: unspecified Nausea presence: with nausea Qualified Code(s): R11.2 - Nausea with vomiting, unspecified Condition: Stable Discharge Date/Time: 11/11/19 16:28
[2019-11-11 09:18] LABS: BASOPHILS # (AUTO) 0.1 10^3/uL (0.0-0.1); BASOPHILS % (AUTO) 0.4 %; EOSINOPHILS % (AUTO) 0.2 %; HGB - HEMOGLOBIN 12.2 g/dL (14.0-18.0); LYMPHOCYTES # (AUTO) 0.7 10^3/uL (1.5-3.5); LYMPHOCYTES % (AUTO) 4.2 %; MEAN CORPUSCULAR HEMOGLOBIN 32.4 pg (27.0-31.0); MEAN CORPUSCULAR HGB CONC 33.4 g/dL (32.0-36.0); MEAN CORPUSCULAR VOLUME 96.8 fL (80.0-94.0); MEAN PLATELET VOLUME 9.1 fL (7.4-11.4); MONOCYTES # (AUTO) 0.8 10^3/uL (0.0-1.0); MONOCYTES % (AUTO) 4.8 %; NEUTROPHILS # (AUTO) 15.1 10^3/uL (1.5-6.6); NEUTROPHILS % (AUTO) 89.4 %; PLT - PLATELET COUNT 193 10^3/uL (130-450); RED BLOOD COUNT 3.77 10^6/uL (4.70-6.10); RED CELL DISTRIBUTION WIDTH 13.9 % (12.0-15.0); WHITE BLOOD COUNT 16.8 x10^3/uL (4.8-10.8)
[2019-11-11 09:33] LABS: ACETAMINOPHEN < 10 ug/mL (10-30); ALBUMIN 3.4 g/dL (3.2-5.5); ALBUMIN/GLOBULIN RATIO 0.9 (1.0-2.2); ALKALINE PHOSPHATASE 85 IU/L (42-121); ALT ALANINE AMINOTRANSFERASE 16 IU/L (10-60); AST ASPARTATE AMINOTRANSFERASE 33 IU/L (10-42); BILIRUBIN,TOTAL 0.7 mg/dL (0.2-1.0); BUN - BLOOD UREA NITROGEN 13 mg/dL (6-20); CALCIUM 8.3 mg/dL (8.5-10.3); CARBON DIOXIDE - CO2 24 mmol/L (21-32); CHLORIDE 94 mmol/L (101-111); CREATININE 0.7 mg/dL (0.6-1.2); GLUCOSE 164 mg/dL (70-100); LIPASE 29 U/L (22-51); PHOSPHORUS 2.1 mg/dL (2.5-4.6); SALICYLATE < 6.0 mg/dL; SODIUM 132 mmol/L (135-145); TOTAL PROTEIN 7.4 g/dL (6.7-8.2)
[2019-11-11 09:50] LABS: PLATELET ESTIMATE, MANUAL NORMAL (130-450,000) (NORMAL); PLATELET MORPHOLOGY NORMAL APPEARANCE (NORMAL); RBC MORPHOLOGY (MULTIPLE) NORMAL APPEARANCE (NORMAL)
[2019-11-11 09:51] LABS: DIFFERENTIAL COMMENT MANUAL=AUTO DIFF
[2019-11-11] MEDS ORDERED: ONDANSETRON 4 MG/2 ML VIAL IVP STA (13:11)
[2019-11-11] MEDS ORDERED: PROMETHAZINE INJ 25 MG in SODIUM CHLORIDE 0.9% 50 ML IV STA (13:11)
[2019-11-11 13:15] LABS: MUDS CUTOFF CONCENTRATIONS CUTOFF CONC BELOW:
[2019-11-11 13:18] LABS: BILIRUBIN,URINE NEGATIVE (NEGATIVE); GLUCOSE, URINE (UA) NEGATIVE (NEGATIVE); KETONES,URINE (UA) 15 mg/dL (NEGATIVE); LEUKOCYTE ESTERASE, URINE NEGATIVE (NEGATIVE); NITRITE,URINE NEGATIVE (NEGATIVE); OCCULT BLOOD,URINE NEGATIVE (NEGATIVE); PH,URINE 6.5 PH (5.0-7.5); PROTEIN,URINE TRACE mg/dL (NEGATIVE); UROBILINOGEN,URINE 0.2 (NORMAL) E.U./dL (NORMAL)
[2019-11-11 13:23] LABS: CLARITY,URINE CLEAR (CLEAR)
[2019-11-11 13:32] LABS: AMPHETAMINE SCREEN,URINE NEGATIVE (NEGATIVE); BENZODIAZEPINES SCREEN, URINE POSITIVE (NEGATIVE); COCAINE SCREEN URINE NEGATIVE (NEGATIVE); METHADONE SCREEN, URINE NEGATIVE (NEGATIVE); METHAMPHETAMINES SCREEN, URINE NEGATIVE (NEGATIVE); OPIATE SCREEN, URINE POSITIVE (NEGATIVE); OXYCODONE SCREEN, URINE NEGATIVE (NEGATIVE); PROPOXYPHENE SCREEN, URINE NEGATIVE (NEGATIVE); TRICYCLIC ANTIDEPRESSANT,URINE POSITIVE (NEGATIVE)
[2019-11-11] MEDS ORDERED: cefTRIAXone 1 GM VIAL IVP STA (14:09)
[2019-11-11] MEDS ORDERED: VANCOMYCIN INJ 1 GM in SODIUM CHLORIDE 0.9% 500 ML IV STA (14:09)
[2019-11-11] MEDS ORDERED: IOVERSOL 320 100 ML VIAL IVP ONE ×2 (14:17→14:35)
[2019-11-11] MEDS ORDERED: VANCOMYCIN INJ 1 GM in SODIUM CHLORIDE 0.9% 250 ML IV ONE (15:00)
--- NOTE | 2019-11-11 15:15 | CT Report ---
PROCEDURE: Abdomen/Pelvis W INDICATIONS: abd pain, vomiting, cellulitis on L flank CONTRAST: IV CONTRAST: Optiray 320 ml: 100 PO CONTRAST: *NO PO CONTRAST TECHNIQUE: After the administration of oral and intravenous contrast, 5 mm thick sections acquired from the diap hragms to the symphysis. 5 mm thick coronal and sagittal reformats were acquired. For radiation dos e reduction, the following was used: automated exposure control, adjustment of mA and/or kV accordin g to patient size. COMPARISON: None. FINDINGS: Image quality: Excellent. ABDOMEN: Lung bases: Lung bases are clear. Heart size is normal. Solid organs: There is a hypoattenuation of the liver consistent with fatty infiltration. The gallbl adder is surgically absent. Biliary system is non dilated. Pancreas enhances normally. No adrenal n odules. Kidneys demonstrate normal size and enhancement, without hydronephrosis. Peritoneum and bowel: Small bowel loops demonstrate normal wall thickness and caliber. The appendix i s not discretely visualized and is likely surgically absent. No pericecal inflammatory changes to sug gest appendicitis. There is mild submucosal fat deposition within the cecum and proximal ascending co alfonso suggesting sequelae of prior inflammatory changes. There are bowel sutures in the sigmoid colon c onsistent with prior partial colectomy. No free fluid or air. Nodes and vessels: No retroperitoneal or mesenteric adenopathy by size criteria. Aorta and inferior vena cava are normal in size. Miscellaneous: There is mild asymmetric subcutaneous fat stranding and skin thickening in the left p osterolateral abdominal wall. No associated abscess collection identified. No ventral hernias. PELVIS: Genitourinary: Bladder wall thickness is normal. Miscellaneous: No inguinal hernias or adenopathy. Bones: No suspicious bony lesions. No vertebral body compression fractures. IMPRESSION: 1. No definite acute intra-abdominal abnormality. Specifically, no evidence of bowel obstruction. 2. Asymmetric subcutaneous fat stranding and skin thickening in the left abdominal wall compatible wi th reported history of cellulitis. No abscess collection identified. 3. Hepatic steatosis. Reviewed by: Robert Macario MD on 11/11/2019 3:14 PM PDT Approved by: Robert Macario MD on 11/11/2019 3:14 PM PDT Station ID: [id number]
[2019-11-11] MEDS ORDERED: PROCHLORPERAZINE 10 MG/2 ML VIAL IVP PRN (15:38)
[2019-11-11] MEDS ORDERED: ZOLPIDEM 5 MG TABLET PO PRN (15:38)
[2019-11-11] MEDS ORDERED: ONDANSETRON 4 MG/2 ML VIAL IVP PRN (15:38)
--- NOTE | 2019-11-11 15:59 | HISTORY & PHYSICAL EXAMINATION ---
Chief Complaint - Chief Complaint Chief Complaint: intracable N/V History of Present Illness - Admitted From Admitted From:: ER - History Obtained From Records Reviewed: [facility] History obtained from: Pt - History of Present Illness HPI Comment/Other: Mr. Sky Gaffney is a 52-year-old gentleman with a PMH significant for alcoholism for many years, Alcoholic pancreatitis, chronic back pain disability,Who presents the ER for complaint for the past 2 days. pt states he began nausea and vomiting since yesterday. pt drunk 6 pack of beer and one b ottle of whiskey on last night. alcohol level on his blood serum is 11.1 on today. He denies hematemesis or blood in the stool. pt report he Has crampy epigastric abdominal pain and red rash on left flank. He report he had burning sensation on his left back starting 5 days ago, and he continue to have burning pain on his back on today. he report he had shingles as he is little kid. pt denies fever, chill, Shortness of breathing, chest pain. CAT scan of abdomen show no definition of acute abdominal abnormality, skin thickening in the left abdomen wall compatible with reported history of cellulitis, no abscess collection is identified. In routine laboratory testing in the ER, patient has elevated WBC 16.8, Lipase is normal range. In the ER, patient is afebrile And hemodynamically stable. Patient is admitted for further medical management. Discussed the care goal with the patient, patient wanted full code History - Past Medical History Cardiovascular: reports: None Respiratory: reports: None Neuro: reports: None Endocrine/Autoimmune: reports: None GI: reports: GERD, Pancreatitis : reports: None HEENT: reports: None Psych: reports: Anxiety, Other Musculoskeletal: reports: Chronic back pain Derm: reports: None MRSA Hx?: No - Past Surgical History General: reports: Cholecystectomy, Colonoscopy Ortho: reports: Rotator cuff repair HEENT: reports: Other - Family & Social History Family History: Mother: , Cancer (Mother from breast cancer, father from lymphoma), Father: , Cancer, Sister: Alive and Well, Brother: Alive and Well, Other family: CAD (1 grandfather had heart disease) Family History Comment/Other: grandfather had heart disease, Mother from breast cancer, father from lymphoma Social History Notes: Patient report he has alcoholism for many years, patient still has cigarette smoking now. - Substance History Use: Uses substance without health or social issues: Cannabis - POLST Patient has POLST: No POLST Status: Full Code Meds/Allgy - Home Medications Home Medications: Ambulatory Orders Medication Instructions Recorded Confirmed QUEtiapine [SEROquel] 50 mg ORAL QPM 08/14/14 06/11/19 Hydrocodone/Acetaminophen 1 tab PO DAILY PRN 06/11/19 06/11/19 [Hydrocodone-Acetamin 5-325 mg] Cyclobenzaprine [Flexeril] 10 mg PO TID PRN #20 tablet 10/02/19 - Allergies Allergies/Adverse Reactions: Allergies Allergy/AdvReac Type Severity Reaction Status Date / Time Penicillins AdvReac Unknown Rash Verified 10/02/19 09:29 Review of Systems - Constitutional Constitutional: denies: Fatigue, Fever, Chills, Malaise, Weakness, Poor appetite, Diaphoresis, Night sweats - Eyes Eyes: denies: Pain, Blurred vision, Spots in vision, Field loss, Vision loss, Dipolpia - Ears, Nose & Throat Ears, Nose & Throat: denies: Ear pain, Hearing loss, Tinnitus, Vertigo, Nasal di scharge, Nosebleeds, Mouth lesions, Bleeding gums - Cardiovascular Cariovascular: denies: Irregular heart rate, Palpitations, Chest pain, Edema, Lightheadedness, Syncope, Exertional dyspnea, Decr. exercise tolerance - Respiratory Respiratory: denies: Cough, Sputum production, Wheezing, Snoring, Hemoptysis, Orthopnea, SOB at rest, SOB with exertion - Gastrointestinal Gastrointestinal: reports: Abdominal pain, Nausea, Vomiting. denies: Abdominal distention, Constipation, Diarrhea, Change in bowel habits, Rectal bleeding, Black stools, Bloody stools, Ayaan blood emesis, Coffee grounds emesis - Genitourinary Genitourinary: denies: Dysuria, Frequency, Hematuria, Incontinence, Nocturia - Musculoskeletal Musculoskeletal: denies: Muscle pain, Back pain, Muscle aches, Stiffness, Limited range of motion, Muscle weakness, Joint pain - Integumentary Integumentary: reports: Rash. denies: Pruritis, Lesions, Dryness, Pigment changes, Nail changes - Neurological Neurological: denies: General weakness, Focal weakness, Headache, Dizziness, Numbness, Memory problems, Pre-existing deficit, Abnormal gait, Seizures, Incoordination, Slurred speech - Psychiatric Psychiatric: denies: Suicidal, Delusions, Hallucinations, Homicidal - Endocrine Endocrine: denies: Polyuria, Polydypsia, Intolerance to heat - Hematologic/Lymphatic Hematologic/Lymphatic: denies: Anemia, Bruising, Petechiae, Lymphadenopathy, Bleeding tendencies, Recurrent infections Exam - Vital Signs Vital Signs: Vital Signs x48h Temp Pulse Resp BP Pulse Ox 11/11/19 15:57 97 16 149/85 H 99 11/11/19 14:03 109 H 24 134/85 H 98 11/11/19 12:26 99 18 127/79 98 11/11/19 10:37 97 14 138/80 H 100 11/11/19 08:35 37.4 C 97 20 143/85 H 98 - Physical Exam General Appearance: positive: Alert, Mild distress. negative: Lethargic Eyes Bilateral: positive: Normal inspection, PERRL, No lid inflammation ENT: positive: ENT inspection nml, Pharynx nml, No signs of dehydration. negative: Purulent nasal drainage, Dry mucous membranes Neck: positive: Nml inspection, Thyroid nml, Trachea midline. negative: Thyromegaly, Stiff neck, Tracheal deviation Respiratory: positive: Chest non-tender, No respiratory distress, Breath sounds nml. negative: Wheezes, Rales, Rhonchi Cardiovascular: positive: Regular rate & rhythm, No murmur, No gallop. negative: Tachycardia, Bradycardia, Systolic murmur, Diastolic murmur Peripheral Pulses: positive: 2+ Abdomen: positive: Non-tender, No organomegaly, Nml bowel sounds, No distention. negative: Tenderness, Guarding, Rebound Back: positive: Nml inspection Skin: positive: Warm, Dry, Skin rash (left ayaan rash) Extremities: positive: Non-tender, Full ROM, Nml appearance. negative: Calf tenderness, Vern's sign/cords Neurologic/Psychiatric: positive: Oriented x3, Motor nml, Sensation nml. negative: Weakness, Sensory loss, Facial droop, Slurred/abnml speech, Depressed mood/affect Conclusion/Plan - Problem List (1) Intractable vomiting Conclusion/Plan: CAT scan of abdomen was unremarkable. Patient also has acute left back and flank cellulitis now. Patient also has known history of alcohol abuse. It is a possible patient has an acute gastroenteritis. We will let patient has clear liquid diet with bowel rest, Intravenous IV fluids, anti-emesis PRN. Intravenous Protonix. Qualifiers: Vomiting type: unspecified Nausea presence: with nausea Qualified Code(s): R11.2 - Nausea with vomiting, unspecified (2) Cellulitis Conclusion/Plan: Patient has left flank erythema, warmth, mild swelling, patient already had Rocephin and vancomycin treated in the ER, Patient has elevated WBC. His left back erythema with burning sensation started with 5 days ago. He reported he still have burning sensation in his back. The erythema pattern is not like topic shingles but erythema edge is clear. 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 Patient denies vomiting blood or GI bleeding. today we will prepare for patient alcohol withdrawal, we will add CIWA protocol, Banana bag, Intravenous ativan PRN, One-time Librium at 25 mg, And Librium every 6 hours 5 mg as needed. (4) Chronic back pain Conclusion/Plan: Patient has a history of chronic back pain, [place] as needed - Lab Results Fish Bones: 11/11/19 09:05 11/11/19 09:05 Core Measures - Anticipated LOS I expect patient to be DC'd or transferred within 96 hours.: Yes - DVT/VTE - Prophylaxis VTE/DVT Device ordered at admit?: Yes VTE/DVT Prophylaxis med ordered at admit?: Yes
--- NOTE | 2019-11-11 16:23 | PHARMACY PROGRESS NOTE ---
- Best Possible Medication History Admit Date and Time: 11/11/19 1538 Processed by: Pharmacy Medication History completed: Yes Patient Interview: Completed Secondary Source(s): Pharmacy records, Insurance records As the person ultimately responsible for medication therapy, providers are able to order a medication from an existing home medication list in [facility] via the "Reconcile Routine" prior to Confirmation of that medication by application support engineer. Such practice is discouraged except when the physician, in their clinical judgment, deems that a medical need exists for a medication without regard to previous use.
[2019-11-11] MEDS ORDERED: chlordiazePOXIDE 25 MG CAPSULE PO SCH (16:30)
[2019-11-11] MEDS: MORPHINE 2 MG/ML CARPUJECT IVP PRN (16:38)
[2019-11-11] MEDS: LORazepam 2 MG/ML VIAL IVP PRN (16:38)
[2019-11-11] MEDS: SODIUM CHLORIDE 0.9% 1,000 ML IV SCH (16:39)
[2019-11-11] MEDS ORDERED: ACETAMINOPHEN 325 MG TABLET PO PRN (17:00)
[2019-11-11] MEDS: SODIUM CHLORIDE FLUSH 0.9% 10 ML SYRINGE IVP SCH (18:19)
[2019-11-11] MEDS: NEUTRA-PHOS 250 MG TABLET PO SCH (18:19)
[2019-11-11] MEDS: GABAPENTIN 100 MG CAPSULE PO SCH ×2 (18:30→21:18)
[2019-11-11] MEDS: ACYCLOVIR 200 MG CAPSULE PO SCH ×2 (18:30→21:18)
[2019-11-11] MEDS: HYDROcod/ACETAM 5/325 MG TABLET PO PRN (20:04)
[2019-11-11] MEDS: QUEtiapine 25 MG TABLET PO SCH (21:18)
[2019-11-11] MEDS: VANCOMYCIN INJ 1 GM in SODIUM CHLORIDE 0.9% 250 ML IV SCH (22:53)
[2019-11-12] MEDS ORDERED: chlordiazePOXIDE 5 MG CAPSULE PO PRN
[2019-11-12] MEDS: SODIUM CHLORIDE FLUSH 0.9% 10 ML SYRINGE IVP SCH ×3 (00:07→18:43)
[2019-11-12] MEDS: HYDROcod/ACETAM 5/325 MG TABLET PO PRN ×3 (00:11→13:51)
[2019-11-12] MEDS: SODIUM CHLORIDE 0.9% 1,000 ML IV SCH ×2 (02:41→23:45)
[2019-11-12 05:28] LABS: BASOPHILS % (AUTO) 0.4 %; EOSINOPHILS % (AUTO) 0.1 %; HGB - HEMOGLOBIN 11.3 g/dL (14.0-18.0); LYMPHOCYTES # (AUTO) 0.8 10^3/uL (1.5-3.5); LYMPHOCYTES % (AUTO) 8.3 %; MEAN CORPUSCULAR HEMOGLOBIN 31.5 pg (27.0-31.0); MEAN CORPUSCULAR HGB CONC 32.6 g/dL (32.0-36.0); MEAN CORPUSCULAR VOLUME 96.7 fL (80.0-94.0); MEAN PLATELET VOLUME 9.6 fL (7.4-11.4); MONOCYTES # (AUTO) 0.7 10^3/uL (0.0-1.0); MONOCYTES % (AUTO) 7.3 %; NEUTROPHILS # (AUTO) 8.1 10^3/uL (1.5-6.6); NEUTROPHILS % (AUTO) 83.4 %; PLT - PLATELET COUNT 155 10^3/uL (130-450); RED BLOOD COUNT 3.59 10^6/uL (4.70-6.10); RED CELL DISTRIBUTION WIDTH 14.2 % (12.0-15.0); WHITE BLOOD COUNT 9.7 x10^3/uL (4.8-10.8)
[2019-11-12 05:36] LABS: CREATININE 0.7 mg/dL (0.6-1.2); PHOSPHORUS 1.5 mg/dL (2.5-4.6)
[2019-11-12] MEDS: VANCOMYCIN INJ 1 GM in SODIUM CHLORIDE 0.9% 250 ML IV SCH (06:20)
[2019-11-12] MEDS: ACYCLOVIR 200 MG CAPSULE PO SCH ×5 (06:21→21:17)
[2019-11-12] MEDS: PANTOPRAZOLE 40 MG VIAL IVP SCH (06:21)
[2019-11-12] MEDS: GABAPENTIN 100 MG CAPSULE PO SCH (06:21)
[2019-11-12] MEDS: LORazepam 2 MG/ML VIAL IVP PRN ×3 (06:43→19:00)
[2019-11-12] MEDS ORDERED: CYCLOBENZAPRINE 10 MG TABLET PO PRN (07:15)
[2019-11-12] MEDS ORDERED: SODIUM PHOSPHATE 15 MMOL in SODIUM CHLORIDE 0.9% 250 ML IV ONE (07:30)
[2019-11-12] MEDS: NEUTRA-PHOS 250 MG TABLET PO SCH ×3 (08:02→16:24)
[2019-11-12] MEDS: ENOXAPARIN 40 MG/0.4 ML SYRINGE SUBQ SCH (08:31)
[2019-11-12] MEDS: GABAPENTIN 300 MG CAPSULE PO SCH ×3 (08:32→21:17)
[2019-11-12] MEDS: SODIUM CHLORIDE FLUSH 0.9% 10 ML SYRINGE IVP PRN ×2 (08:38→13:58)
[2019-11-12] MEDS: MULTIVITAMIN 10 ML, THIAMINE INJ 100 MG, FOLIC ACID INJ 1 MG in SODIUM CHLORIDE 0.9% 1,... IV SCH (08:39)
[2019-11-12] MEDS ORDERED: ACAMPROSATE CALCIUM 333 MG PO SCH (09:00)
[2019-11-12] MEDS ORDERED: cefTRIAXone 1 GM in SODIUM CHLORIDE 0.9% MINIBAG 100 ML IV SCH (09:00)
[2019-11-12] MEDS ORDERED: chlordiazePOXIDE 25 MG CAPSULE PO SCH (10:00)
--- NOTE | 2019-11-12 12:29 | PROVIDER PROGRESS NOTE ---
Assessment/Plan - Problem List (1) Intractable vomiting Qualifiers: Vomiting type: unspecified Nausea presence: with nausea Qualified Code(s): R11.2 - Nausea with vomiting, unspecified Assessment/Plan: Patient report improved for control of vomiting. Patient ask for advanced of diet to the regular diet. Continue antiemesis PRN, continue intravenous IV fluids Continue intravenous of Protonix (2) Cellulitis Conclusion/Plan: Patient's WBC is in the normal range after treatment. Patient's back erythema with mild swelling is slightly improved. Noted nasal screen for MRSA is nega tive. We will continue antibiotics Rocephin, hold vancomycin. (3)shingles Patient reported burning and tingling of the back rash is slightly improved, The back rash showed fluid-filled blister and some was a break up open. Back rash and erythema area size is bigger than the one dermatomes, it might indicate cellulitis. We will continue acyclovir and gabapentin. isolation for shingles (4) Alcoholism Conclusion/Plan: Patient present more anxiety and tremor in the morning, indication patient start to have alcohol withdrawal. Continue CIWA protocol, 2 mg Ativan every 30 min PRN and, Continue Librium. (5) Chronic back pain Conclusion/Plan: Patient has a history of chronic back pain, [place] as needed (2) Cellulitis Qualifiers: Site of cellulitis: trunk Site of cellulitis of trunk: back Qualified Code(s): L03.312 - Cellulitis of back [any part except buttock] - Current Meds Current Meds: Current Medications Generic Name Dose Route Start Last Admin Trade Name Freq PRN Reason Stop Dose Admin Hydrocodone Bitart/Acetaminophen 1 tab 11/11/19 16:51 11/12/19 08:02 [place] 5/325 PO 1 tab Q4HR PRN Administration PAIN 5-7 Acyclovir 200 mg 11/11/19 18:00 11/12/19 08:02 Zovirax PO 200 mg 5XD DESMOND Administration Enoxaparin Sodium 40 mg 11/12/19 09:00 11/12/19 08:31 Lovenox SUBQ 40 mg DAILY DESMOND Administration Gabapentin 300 mg 11/12/19 09:00 11/12/19 08:32 Neurontin PO 300 mg TID DESMOND Administration Sodium Chloride 1,000 mls @ 100 mls/hr 11/11/19 16:00 11/12/19 09:09 Normal Saline 0.9% IV 100 mls/hr .Q10H DESMOND Infusion Multivitamins 10 ml/ Thiamine 1,011.2 mls @ 100 mls/hr 11/12/19 09:00 11/12/19 09:09 HCl 100 mg/ Folic Acid 1 mg/ IV 0 mls/hr Sodium Chloride DAILY DESMOND Infusion Sodium Phosphate 15 mmol/ 255 mls @ 41 mls/hr 11/12/19 07:30 11/12/19 09:10 Sodium Chloride IV 11/12/19 13:43 41 mls/hr ONCE ONE Administration Morphine Sulfate 2 mg 11/11/19 15:38 11/11/19 16:38 Morphine (Carpuject) IVP 2 mg Q2HR PRN Administration Pain 8 to 10 Ondansetron HCl 4 mg 11/11/19 15:38 11/12/19 08:38 Zofran Inj IVP 4 mg Q6HR PRN Administration Nausea / Vomiting Pantoprazole Sodium 40 mg 11/12/19 07:00 11/12/19 06:21 Protonix IVP 40 mg QDAC DESMOND Administration Prochlorperazine Edisylate 10 mg 11/11/19 15:38 11/11/19 16:38 Compazine Inj IVP 10 mg Q6HR PRN Administration Nausea / Vomiting Quetiapine Fumarate 50 mg 11/11/19 21:00 11/11/19 21:18 Seroquel PO 50 mg QPM DESMOND Administration Sodium Chloride 10 ml 11/11/19 15:38 11/12/19 08:38 Normal Saline Flush 0.9% IVP 20 ml PRN PRN Administration NEEDED PER PROVIDER ORDERS Sodium Chloride 10 ml 11/11/19 17:00 11/12/19 08:32 Normal Saline Flush 0.9% IVP Not Given 0100,0900,1700 DESMOND Sodium Phosphate 250 mg 11/11/19 17:00 11/12/19 10:59 K-Phos Neutral PO 250 mg TIDWM DESMOND Administration - Lab Result Fish Bone Diagrams: 11/12/19 05:05 11/12/19 05:05 - Additional Planning My Orders: My Active Orders 11/11/19 15:38 Activity Orders [RC] Q2HR IO [RC] IOSHIFT Initiate Bowel Care Protocol [RC] .protocol Initiate Line Care Protocol [RC] QSHIFT Initiate Personal Care Protoco [RC] .protocol Oxygen Therapy [RC] Routine Telemetry- [RC] Q4HR Vital Signs [RC] Q4HR Morphine Inj (Carpuject) [Morphine (Carpuject)] 2 mg IVP Q2HR PRN Ondansetron Inj [Zofran Inj] 4 mg IVP Q6HR PRN Prochlorperazine Inj [Compazine Inj] 10 mg IVP Q6HR PRN Sodium Chloride Flush 0.9% [Normal Saline Flush 0.9%] 10 ml IVP PRN PRN Code Status [OTHERS] Routine Condition of Patient [OTHERS] Routine DVT Prophylaxis [OTHERS] Routine 11/11/19 15:41 IV Insert [RC] .ONCE 11/11/19 15:42 SCDs [RC] QSHIFT 11/11/19 15:43 Social Work Consult [CONS] Routine 11/11/19 15:47 Blood Glucose POC [RC] 0800,1200,1700,2100 CIWA - AR Score Card [RC] Q4H Q4H Neuro Check [RC] Routine Routine 11/11/19 16:00 Sodium Chloride 0.9% [Normal Saline 0.9%] 1,000 ml IV 100 mls/hr 11/11/19 Dinner Clear Liquid Diet [DIET] 11/11/19 16:51 HYDROcod/ACETAM 5/325 [[place] 5/325] 1 tab PO Q4HR PRN 11/11/19 17:00 Acetaminophen [Tylenol] 650 mg PO Q4HR PRN Neutra-Phos [K-Phos Neutral] 250 mg PO TIDWM Sodium Chloride Flush 0.9% [Normal Saline Flush 0.9%] 10 ml IVP 0100,0900,1700 11/11/19 18:00 Acyclovir [Zovirax] 200 mg PO 5XD 11/11/19 21:00 QUEtiapine [SEROquel] 50 mg PO QPM 11/12/19 00:00 chlordiazePOXIDE [Librium] 5 mg PO Q6HR PRN 11/12/19 07:00 Pantoprazole [Protonix] 40 mg IVP QDAC 11/12/19 07:15 Cyclobenzaprine [Flexeril] 10 mg PO TID PRN 11/12/19 09:00 Enoxaparin [Lovenox] 40 mg SUBQ DAILY Gabapentin [Neurontin] 300 mg PO TID Multivitamin [Infuvite] 10 ml Thiamine Inj [Vitamin B-1 Inj] 100 mg Folic Acid Inj 1 mg Sodium Chloride 0.9% [Normal Saline 0.9%] 1,000 ml IV DAILY 11/12/19 09:26 LORazepam INJ [Ativan Inj (Vial)] 2 mg IVP Q30M PRN 11/12/19 17:00 Saccharomyces Boulardii [Florastor] 250 mg PO BIDWM 11/13/19 05:00 BMP - BASIC METABOLIC PANEL [CHEM] DAILYLAB CBC - COMP BLD CT W/AUTO DIFF [HEME] DAILYLAB PHOSPHORUS [CHEM] DAILYLAB 11/13/19 09:00 cefTRIAXone [Rocephin] 2 gm Sodium Chloride 0.9% Minibag [Normal Saline 0.9% Minibag] 100 ml IV DAILY 11/14/19 05:00 BMP - BASIC METABOLIC PANEL [CHEM] DAILYLAB CBC - COMP BLD CT W/AUTO DIFF [HEME] DAILYLAB PHOSPHORUS [CHEM] DAILYLAB 11/15/19 05:00 BMP - BASIC METABOLIC PANEL [CHEM] DAILYLAB CBC - COMP BLD CT W/AUTO DIFF [HEME] DAILYLAB 11/16/19 05:00 BMP - BASIC METABOLIC PANEL [CHEM] DAILYLAB CBC - COMP BLD CT W/AUTO DIFF [HEME] DAILYLAB Subjective - Subjective Patient Reports: Feeling Better Objective Vital Signs: Vital Signs - 24 hr 11/11/19 11/11/19 11/11/19 14:03 15:57 16:29 Temperature 37.1 C Heart Rate 109 H 97 Heart Rate [ Brachial] Heart Rate [ 111 H Monitoring electrodes] Respiratory 24 16 18 Rate Blood Pressure 134/85 H 149/85 H Blood Pressure 160/96 H [Right Brachial artery] O2 Saturation 98 99 100 11/11/19 11/12/19 11/12/19 20:48 00:00 05:15 Temperature 36.9 C 37.1 C 37.4 C Heart Rate Heart Rate [ 92 71 Brachial] Heart Rate [ 95 Monitoring electrodes] Respiratory 18 16 16 Rate Blood Pressure Blood Pressure 154/81 H 151/78 H 125/75 [Right Brachial artery] O2 Saturation 96 100 99 11/12/19 11/12/19 08:03 08:22 Temperature 37.6 C H 37.6 C H Heart Rate 98 Heart Rate [ 80 Brachial] Heart Rate [ Monitoring electrodes] Respiratory 16 16 Rate Blood Pressure Blood Pressure 132/73 H [Right Brachial artery] O2 Saturation 95 99 Oxygen O2 Source Room air I&O (Last 24 Hrs): Intake and Output Totals x24h 11/10/19 11/11/19 11/12/19 23:59 23:59 23:59 Intake Total 3866.2 2855 Output Total 300 1000 Balance 3566.2 1855 General: Alert, Oriented x3, Cooperative, Mild distress HEENT: Atraumatic Neck: Supple Lymphatic: no adenopathy Neuro: Alert, Non Focal, Oriented Times 3 Cardiovascular: Regular rate, Normal S1, Normal S2 Respiratory: Chest non-tender, No respiratory distress, Breath sounds nml Abdomen: Normal bowel sounds, Soft, No tenderness Extremities: Normal pulses - Results Results: Laboratory Results WBC 9.7 x10^3/uL (4.8-10.8) 11/12/19 05:05 RBC 3.59 10^6/uL (4.70-6.10) L 11/12/19 05:05 Hgb 11.3 g/dL (14.0-18.0) L 11/12/19 05:05 Hct 34.7 % (42.0-52.0) L 11/12/19 05:05 MCV 96.7 fL (80.0-94.0) H 11/12/19 05:05 MCH 31.5 pg (27.0-31.0) H 11/12/19 05:05 MCHC 32.6 g/dL (32.0-36.0) 11/12/19 05:05 RDW 14.2 % (12.0-15.0) 11/12/19 05:05 Plt Count 155 10^3/uL (130-450) 11/12/19 05:05 MPV 9.6 fL (7.4-11.4) 11/12/19 05:05 Neut # (Auto) 8.1 10^3/uL (1.5-6.6) H 11/12/19 05:05 Lymph # (Auto) 0.8 10^3/uL (1.5-3.5) L 11/12/19 05:05 Pepin # (Auto) 0.7 10^3/uL (0.0-1.0) 11/12/19 05:05 Eos # (Auto) 0.0 10^3/uL (0.0-0.7) 11/12/19 05:05 Baso # (Auto) 0.0 10^3/uL (0.0-0.1) 11/12/19 05:05 Absolute Nucleated RBC 0.00 x10^3/uL 11/12/19 05:05 Band Neuts % (Manual) Not Reportable 11/11/19 09:05 Abnorm Lymph % (Manual) Not Reportable 11/11/19 09:05 Nucleated RBC % 0.0 /100WBC 11/12/19 05:05 Neutrophils # (Manual) Not Reportable 11/11/19 09:05 Lymphocytes # (Manual) Not Reportable 11/11/19 09:05 Monocytes # (Manual) Not Reportable 11/11/19 09:05 Eosinophils # (Manual) Not Reportable 11/11/19 09:05 Basophils # (Manual) Not Reportable 11/11/19 09:05 Differential Comment MANUAL=AUTO DIFF 11/11/19 09:05 Platelet Estimate NORMAL (130-450,000) (NORMAL) 11/11/19 09:05 Platelet Morphology NORMAL APPEARANCE (NORMAL) 11/11/19 09:05 RBC Morph Micro Appear NORMAL APPEARANCE (NORMAL) 11/11/19 09:05 Sodium 134 mmol/L (135-145) L 11/12/19 05:05 Potassium 3.5 mmol/L (3.5-5.0) 11/12/19 05:05 Chloride 101 mmol/L (101-111) 11/12/19 05:05 Carbon Dioxide 25 mmol/L (21-32) 11/12/19 05:05 Anion Gap 8.0 (6-13) 11/12/19 05:05 BUN 9 mg/dL (6-20) 11/12/19 05:05 Creatinine 0.7 mg/dL (0.6-1.2) 11/12/19 05:05 Estimated GFR (MDRD) 117 (>89) 11/12/19 05:05 Glucose 102 mg/dL (70-100) H 11/12/19 05:05 POC Whole Bld Glucose 99 mg/dL (70 - 100) 11/12/19 11:06 Calcium 8.0 mg/dL (8.5-10.3) L 11/12/19 05:05 Phosphorus 1.5 mg/dL (2.5-4.6) L 11/12/19 05:05 Magnesium 2.0 mg/dL (1.7-2.8) 11/11/19 09:05 Total Bilirubin 0.7 mg/dL (0.2-1.0) 11/11/19 09:05 AST 33 IU/L (10-42) 11/11/19 09:05 ALT 16 IU/L (10-60) 11/11/19 09:05 Alkaline Phosphatase 85 IU/L (42-121) 11/11/19 09:05 Total Protein 7.4 g/dL (6.7-8.2) 11/11/19 09:05 Albumin 3.4 g/dL (3.2-5.5) 11/11/19 09:05 Globulin 4.0 g/dL (2.1-4.2) 11/11/19 09:05 Albumin/Globulin Ratio 0.9 (1.0-2.2) L 11/11/19 09:05 Lipase 29 U/L (22-51) 11/11/19 09:05 TSH 1.45 uIU/mL (0.34-5.60) 11/11/19 09:05 Urine Color YELLOW 11/11/19 13:10 Urine Clarity CLEAR (CLEAR) 11/11/19 13:10 Urine pH 6.5 PH (5.0-7.5) 11/11/19 13:10 Ur Specific [place] 1.025 (1.002-1.030) 11/11/19 13:10 Urine Protein TRACE mg/dL (NEGATIVE) 11/11/19 13:10 Urine Glucose (UA) NEGATIVE mg/dL (NEGATIVE) 11/11/19 13:10 Urine Ketones 15 mg/dL (NEGATIVE) H 11/11/19 13:10 Urine Occult Blood NEGATIVE (NEGATIVE) 11/11/19 13:10 Urine Nitrite NEGATIVE (NEGATIVE) 11/11/19 13:10 Urine Bilirubin NEGATIVE (NEGATIVE) 11/11/19 13:10 Urine Urobilinogen 0.2 (NORMAL) E.U./dL (NORMAL) 11/11/19 13:10 Ur Leukocyte Esterase NEGATIVE (NEGATIVE) 11/11/19 13:10 Ur Microscopic Review NOT INDICATED 11/11/19 13:10 Urine Culture Comments NOT INDICATED 11/11/19 13:10 Nasal Screen MRSA (PCR) NEGATIVE (NEGATIVE) 11/11/19 18:25 Salicylates < 6.0 mg/dL 11/11/19 09:05 Urine Opiates Screen POSITIVE (NEGATIVE) H 11/11/19 13:10 Ur Oxycodone Screen NEGATIVE (NEGATIVE) 11/11/19 13:10 Urine Methadone Screen NEGATIVE (NEGATIVE) 11/11/19 13:10 Ur Propoxyphene Screen NEGATIVE (NEGATIVE) 11/11/19 13:10 Acetaminophen < 10 ug/mL (10-30) L 11/11/19 09:05 Ur Barbiturates Screen NEGATIVE (NEGATIVE) 11/11/19 13:10 Ur Tricyclics Screen POSITIVE (NEGATIVE) H 11/11/19 13:10 Ur Phencyclidine Scrn NEGATIVE (NEGATIVE) 11/11/19 13:10 Ur Amphetamine Screen NEGATIVE (NEGATIVE) 11/11/19 13:10 U Methamphetamines Scrn NEGATIVE (NEGATIVE) 11/11/19 13:10 U Benzodiazepines Scrn POSITIVE (NEGATIVE) H 11/11/19 13:10 Urine Cocaine Screen NEGATIVE (NEGATIVE) 11/11/19 13:10 U Cannabinoids Screen NEGATIVE (NEGATIVE) 11/11/19 13:10 Ethyl Alcohol 11.1 mg/dL 11/11/19 09:05 - Procedures Procedures: Procedures COLONOSCOPY (08/10/14) EXCISION OF SIGMOID COLON, OPEN APPROACH (08/08/17) SUPPLEMENT ABDOMINAL WALL WITH SYNTH SUB, OPEN APPROACH (08/08/17) ABX Reporting Has patient been on IV antibiotics over the past 48 hours?: Yes Current Medications - Current Medications Current Medications: Active Medications Acetaminophen (Tylenol) 650 mg PO Q4HR PRN PRN Reason: Pain 1 to 4 Hydrocodone Bitart/Acetaminophen ([place] 5/325) 1 tab PO Q4HR PRN PRN Reason: PAIN 5-7 Last Admin: 11/12/19 13:51 Dose: 1 tab Documented by: Acyclovir (Zovirax) 200 mg PO 5XD DESMOND Last Admin: 11/12/19 13:52 Dose: 200 mg Documented by: Chlordiazepoxide HCl (Librium) 5 mg PO Q6HR PRN PRN Reason: Alcohol Withdrawal Cyclobenzaprine HCl (Flexeril) 10 mg PO TID PRN PRN Reason: Spasms Enoxaparin Sodium (Lovenox) 40 mg SUBQ DAILY [facility] Last Admin: 11/12/19 08:31 Dose: 40 mg Documented by: Gabapentin (Neurontin) 300 mg PO TID [facility] Last Admin: 11/12/19 13:51 Dose: 300 mg Documented by: Sodium Chloride (Normal Saline 0.9%) 1,000 mls @ 100 mls/hr IV .Q10H [facility] Last Infusion: 11/12/19 13:53 Dose: Infused Documented by: Multivitamins 10 ml/ Thiamine HCl 100 mg/ Folic Acid 1 mg/Sodium Chloride 1,011.2 mls @ 100 mls/hr IV DAILY [facility] Last Infusion: 11/12/19 09:09 Dose: 0 mls/hr Documented by: Ceftriaxone Sodium 2 gm/ (Sodium Chloride) 100 mls @ 200 mls/hr IV DAILY [facility] Lorazepam (Ativan Inj (Vial)) 2 mg IVP Q30M PRN; Protocol PRN Reason: CIWA >8 Last Admin: 11/12/19 13:56 Dose: 2 mg Documented by: Morphine Sulfate (Morphine (Carpuject)) 2 mg IVP Q2HR PRN PRN Reason: Pain 8 to 10 Last Admin: 11/11/19 16:38 Dose: 2 mg Documented by: Ondansetron HCl (Zofran Inj) 4 mg IVP Q6HR PRN PRN Reason: Nausea / Vomiting Last Admin: 11/12/19 08:38 Dose: 4 mg Documented by: Pantoprazole Sodium (Protonix) 40 mg IVP QDAC [facility] Last Admin: 11/12/19 06:21 Dose: 40 mg Documented by: Prochlorperazine Edisylate (Compazine Inj) 10 mg IVP Q6HR PRN PRN Reason: Nausea / Vomiting Last Admin: 11/11/19 16:38 Dose: 10 mg Documented by: Quetiapine Fumarate (Seroquel) 50 mg PO QPM [facility] Last Admin: 11/11/19 21:18 Dose: 50 mg Documented by: Saccharomyces Boulardii (Florastor) 250 mg PO BIDWM [facility] Sodium Chloride (Normal Saline Flush 0.9%) 10 ml IVP PRN PRN PRN Reason: NEEDED PER PROVIDER ORDERS Last Admin: 11/12/19 13:58 Dose: 10 ml Documented by: Sodium Chloride (Normal Saline Flush 0.9%) 10 ml IVP 0100,0900,1700 [facility] Last Admin: 11/12/19 08:32 Dose: Not Given Documented by: Sodium Phosphate (K-Phos Neutral) 250 mg PO TIDWM [facility] Last Admin: 11/12/19 10:59 Dose: 250 mg Documented by: QUEtiapine [SEROquel] 50 mg ORAL QPM 08/14/14 Hydrocodone/Acetaminophen [Hydrocodone-Acetamin 5-325 mg] 1 tab PO QID 06/11/19 Acamprosate Calcium 333 mg PO DAILY 11/11/19
[2019-11-12 14:11] LABS: VANCOMYCIN,TROUGH 15.8 ug/mL (10.0-20.0)
[2019-11-12] MEDS: SACCHAROMYCES BOULARDII 250 MG CAPSULE PO SCH (16:24)
[2019-11-12] MEDS: MORPHINE 2 MG/ML CARPUJECT IVP PRN ×2 (19:00→22:52)
[2019-11-12] MEDS: QUEtiapine 25 MG TABLET PO SCH (21:17)
[2019-11-13] MEDS: HYDROcod/ACETAM 5/325 MG TABLET PO PRN ×2 (00:10→09:22)
[2019-11-13] MEDS: LORazepam 2 MG/ML VIAL IVP PRN ×2 (00:45→05:17)
[2019-11-13] MEDS: SODIUM CHLORIDE FLUSH 0.9% 10 ML SYRINGE IVP SCH ×2 (03:01→09:23)
[2019-11-13] MEDS: ACYCLOVIR 200 MG CAPSULE PO SCH ×3 (05:05→12:50)
[2019-11-13] MEDS: GABAPENTIN 300 MG CAPSULE PO SCH ×2 (05:05→12:51)
[2019-11-13 05:47] LABS: BASOPHILS # (AUTO) 0.1 10^3/uL (0.0-0.1); BASOPHILS % (AUTO) 0.8 %; EOSINOPHILS # (AUTO) 0.1 10^3/uL (0.0-0.7); EOSINOPHILS % (AUTO) 0.8 %; HGB - HEMOGLOBIN 11.8 g/dL (14.0-18.0); LYMPHOCYTES # (AUTO) 0.9 10^3/uL (1.5-3.5); LYMPHOCYTES % (AUTO) 15.1 %; MEAN CORPUSCULAR HEMOGLOBIN 31.2 pg (27.0-31.0); MEAN CORPUSCULAR HGB CONC 32.3 g/dL (32.0-36.0); MEAN CORPUSCULAR VOLUME 96.6 fL (80.0-94.0); MEAN PLATELET VOLUME 9.1 fL (7.4-11.4); MONOCYTES # (AUTO) 0.5 10^3/uL (0.0-1.0); MONOCYTES % (AUTO) 8.6 %; NEUTROPHILS # (AUTO) 4.5 10^3/uL (1.5-6.6); NEUTROPHILS % (AUTO) 74.2 %; PLT - PLATELET COUNT 148 10^3/uL (130-450); RED BLOOD COUNT 3.78 10^6/uL (4.70-6.10); RED CELL DISTRIBUTION WIDTH 13.9 % (12.0-15.0)
[2019-11-13 05:55] LABS: CALCIUM 8.1 mg/dL (8.5-10.3); CREATININE 0.7 mg/dL (0.6-1.2)
[2019-11-13] MEDS: SODIUM CHLORIDE FLUSH 0.9% 10 ML SYRINGE IVP PRN (07:01)
[2019-11-13] MEDS: PANTOPRAZOLE 40 MG VIAL IVP SCH (07:01)
[2019-11-13] MEDS ORDERED: POTASSIUM CHLORIDE 20 MEQ TABLET PO ONE ×3 (08:00→14:39)
[2019-11-13] MEDS ORDERED: POTASSIUM CHLOR 10 MEQ/100 ML 10 MEQ/100 ML BAG IV SCH (08:30)
[2019-11-13] MEDS ORDERED: BENZOCAINE/TETRACAINE/BUTAMBEN 20 GM TOP ONE (09:00)
[2019-11-13] MEDS ORDERED: cefTRIAXone 2 GM in SODIUM CHLORIDE 0.9% MINIBAG 100 ML IV SCH (09:00)
[2019-11-13] MEDS: ENOXAPARIN 40 MG/0.4 ML SYRINGE SUBQ SCH (09:21)
[2019-11-13] MEDS: NEUTRA-PHOS 250 MG TABLET PO SCH ×2 (09:22→12:50)
[2019-11-13] MEDS: MULTIVITAMIN 10 ML, THIAMINE INJ 100 MG, FOLIC ACID INJ 1 MG in SODIUM CHLORIDE 0.9% 1,... IV SCH (09:22)
[2019-11-13] MEDS: SACCHAROMYCES BOULARDII 250 MG CAPSULE PO SCH (09:22)
[2019-11-13] MEDS ORDERED: LORazepam 1 MG TABLET PO ONE (12:38)
[2019-11-13 12:39] VITALS: BP 150/91
[2019-11-13] MEDS ORDERED: chlordiazePOXIDE 25 MG CAPSULE PO SCH (13:00)
--- NOTE | 2019-11-13 14:52 | Discharge Plan ---
Discharge Plan Problem Reviewed?: Yes Disposition: Home, Self Care Condition: Stable Prescriptions: HYDROcod/ACETAM 5/325 [[place] 5/325] 1 tab PO Q4HR PRN #20 tablet PRN Reason: PAIN 5-7 Acyclovir 400 mg PO TID #15 tablet Saccharomyces Boulardii [Florastor] 250 mg PO BID #10 capsule Cephalexin [Keflex] 250 mg PO QID #20 capsule Pnv No.95/Ferrous Fum/Folic AC [ Tablet] 1 each PO DAILY #30 tablet Thiamine HCl [Vitamin B-1] 100 mg PO DAILY #30 tablet Diet: Regular Activity Restrictions: Activity as Tolerated Shower Restrictions: No (fall precaution) Instruction Topics: Addiction Alcohol Signs, Alcoholism, Cellulitis Ch, Shingles Herpes Zoster, Acetaminophen Hydrocodone tablets or capsules, Cephalexin tablets or capsules, Acyclovir tablets or capsules Health Concerns: cellulitis and shingles, alcoholism Plan of Treatment: you were found to have cellulitis and shingles in your back. you are prescribed antibiotics Keflex and anti-virus medication acyclovirs to continue the treatment course. You state you have lots of Gabapentin at home. you are also prescribed [place] for your pain control PRN. You state you will quit alcohol, really encourage you do that. you are prescribed and B-1 for you to deal with your alcohol issue. Care Goals: stabilization and improvement of your medical conditions. Assessment: discussed the care plan with you, you understood and agreed Additional Instructions or Follow Up instructions: you may followup with your PCP in one to two weeks. Should your symptoms return or worsen, you may present ER or call 911 for help. No Smoking: If you smoke, Please STOP! Call for help. Follow-up with: CORINA MELO MD [Primary Care Provider] -
[2019-11-13] MEDS ORDERED: cephALEXin 250 MG CAPSULE PO SCH (15:00)
--- NOTE | 2019-11-13 15:04 | DISCHARGE SUMMARY ---
Discharge Summary Admit Date: 11/11/19 Discharge Date: 11/13/19 Discharging Provider: Huey Parra Primary Care Provider: Ahmet Holden Condition at Discharge: Stable Discharge Disposition: 01 Home, Self Care Discharge Facility Name: home - DIAGNOSES Discharge Diagnoses with Status of Each Condition: (1) Intractable vomiting resolved. pt Has no more nausea or vomiting, and tolerated regular diet without abdominal pain as well (2) Cellulitis Improved and stable, patient's WBC become normal, patient has no fever or chill. Patient reported his pain is well controlled.Patient is prescribed Keflex for d ischarge. (3)shingles improved and stable, Patient's back shingle site skin is dry without blisters. Patient reported a burning sensation and pain is much better. Patient reported he has enough gabapentin in the home, He declined any more gabapentin. Patient is prescribed aCyclovir to D/C home. Patient also has home [place] pain medications. No more home pain medication is needed at this point (4) Alcoholism Patient reported he will quitted alcohol. and vitamin B-1 is prescribed for patient. Patient is a prescription of Ativan to help he quit alcohol. (5) Chronic back pain chronic and stable. - HPI History of Present Illness: Mr. Sky Gaffney is a 52-year-old gentleman with a PMH significant for alcoholism for many years, Alcoholic pancreatitis, chronic back pain disability,Who presents the ER for complaint for the past 2 days. pt states he began nausea and vomiting since yesterday. pt drunk 6 pack of beer and one bottle of whiskey on last night. alcohol level on his blood serum is 11.1 on today. He denies hematemesis or blood in the stool. pt report he Has crampy epigastric abdominal pain and red rash on left flank. He report he had burning sensation on his left back starting 5 days ago, and he continue to have burning pain on his back on today. he report he had shingles as he is little kid. pt denies fever, chill, Shortness of breathing, chest pain. CAT scan of abdomen show no definition of acute abdominal abnormality, skin thickening in the left abdomen wall compatible with reported history of cellulitis, no abscess collection is identified. In routine laboratory testing in the ER, patient has elevated WBC 16.8, Lipase is normal range. In the ER, patient is afebrile And hemodynamically stable. Patient is admitted for further medical management. Discussed the care goal with the patient, patient wanted full code - HOSPITAL COURSE Hospital Course: Patient was admitted for intractable vomiting. Patient was found to have cellulitis and shingles in patient back. Patient has a history of custodial of alcoholism and alcohol abuse. Patient was treated with antibiotics and acyclovir, gabapentin, Also CIWA protocol and Librium for patient alcohol withdrawal. After treatment, patient has no more vomiting or nausea, patient tolerated regular diet without alton pain. pt request to be d/c to home. See detailed hospital course is as Discharge diagnosis with conditions. - ALLERGIES Allergies/Adverse Reactions: Allergies Allergy/AdvReac Type Severity Reaction Status Date / Time Penicillins AdvReac Unknown Rash Verified 10/02/19 09:29 - MEDICATIONS Home Medications: Ambulatory Orders Medication Instructions Recorded Confirmed QUEtiapine [SEROquel] 50 mg ORAL QPM 08/14/14 11/11/19 Hydrocodone/Acetaminophen 1 tab PO QID 06/11/19 11/11/19 [Hydrocodone-Acetamin 5-325 mg] Cyclobenzaprine [Flexeril] 10 mg PO TID PRN #20 tablet 10/02/19 11/11/19 Acamprosate Calcium 333 mg PO DAILY 11/11/19 11/11/19 Acyclovir 400 mg PO TID #15 tablet 11/13/19 Cephalexin [Keflex] 250 mg PO QID #20 capsule 11/13/19 Lorazepam [Ativan] 1 mg PO Q6H PRN #30 tablet 11/13/19 Pnv No.95/Ferrous Fum/Folic AC 1 each PO DAILY #30 tablet 11/13/19 [ Tablet] Saccharomyces Boulardii [Florastor] 250 mg PO BID #10 capsule 11/13/19 Thiamine HCl [Vitamin B-1] 100 mg PO DAILY #30 tablet 11/13/19 - PHYSICAL EXAM AT DISCHARGE General Appearance: positive: No acute distress, Alert. negative: Lethargic Eyes Bilateral: positive: Normal inspection, PERRL, No lid inflammation ENT: positive: ENT inspection nml, Pharynx nml, No signs of dehydration. negative: Purulent nasal drainage Neck: positive: Nml inspection, Thyroid nml, No JVD, Trachea midline. negative: Thyromegaly, Stiff neck, Tracheal deviation Respiratory: positive: Chest non-tender, No respiratory distress, Breath sounds nml. negative: Wheezes, Rales, Rhonchi Cardiovascular: positive: Regular rate & rhythm, No murmur, No gallop. negative: Irregularly irregular, Tachycardia, Bradycardia, Systolic murmur, Diastolic murmur Peripheral Pulses: positive: 2+ Abdomen: positive: Non-tender, No organomegaly, Nml bowel sounds, No distention. negative: Tenderness, Guarding, Rebound Back: positive: Other. negative: CVA tenderness (R), CVA tenderness (L) (reduced erythema skin size and dry without blisters in the left and middle of back) Skin: positive: Warm, Dry. negative: Cyanosis, Diaphoresis, Pallor Extremities: positive: Non-tender, Full ROM, Nml appearance. negative: Calf tenderness, Vern's sign/cords Neurologic/Psychiatric: positive: Oriented x3, Motor nml, Sensation nml, Mood/affect nml. negative: Weakness, Sensory loss, Facial droop, Slurred/abnml speech, Depressed mood/affect - LABS Result Diagrams: 11/13/19 05:35 11/13/19 13:59 - FOLLOW UP Follow Up: you were found to have cellulitis and shingles in your back. you are prescribed antibiotics Keflex and anti-virus medication acyclovirs to continue the treatment course. You state you have lots of Gabapentin at home. you has [place] pain medications at home You state you will quit alcohol, really encourage you do that. you are prescribed and B-1, and Ativan for you to deal with your alcohol issue. you may followup with your PCP in one to two weeks. Should your symptoms return or worsen, you may present ER or call 911 for help. - TIME SPENT Time Spent in Discharge (Minutes): 30
== END 2019-11-13 15:31 | disposition home or self-care (01) | DRG 596 ==
LOC: EDUNIT# → ED 08:41 → MS2 15:38
PROVIDERS: ADMIT Nurse Practitioner Gerontology; ATTEND Nurse Practitioner Gerontology
DX: K29.20 Alcoholic gastritis without bleeding (principal); B02.9 Zoster without complications; L03.312 Cellulitis of back [any part except buttock and flank]; F17.200 Nicotine dependence, unspecified, uncomplicated; F10.239 Alcohol dependence with withdrawal, unspecified; M54.9 Dorsalgia, unspecified; G89.29 Other chronic pain; R10.13 Epigastric pain; Z79.891 Long term (current) use of opiate analgesic; F17.210 Nicotine dependence, cigarettes, uncomplicated
CPT/HCPCS: 36415; 74177; 80048; 80053; 80202; 81003; 83690; 83735; 84100; 84132; 84443; 85025; 87640; 96365; 96366; 96367; 96375; 96376; 99284; 99285; A9270; J1650; J2060; J3370; J3411; J7040; J8499; Q9967; 80306; 80307; 80320; 80329; 81001; 87086

== ENCOUNTER → 2019-12-29 | Outpatient (CLI) | payer MEDICARE, MEDICAID ==
[2019-12-29 11:44] LABS: BILIRUBIN,URINE NEGATIVE (NEGATIVE); GLUCOSE, URINE (UA) NEGATIVE (NEGATIVE); KETONES,URINE (UA) NEGATIVE (NEGATIVE); LEUKOCYTE ESTERASE, URINE NEGATIVE (NEGATIVE); NITRITE,URINE NEGATIVE (NEGATIVE); OCCULT BLOOD,URINE NEGATIVE (NEGATIVE); PROTEIN,URINE NEGATIVE (NEGATIVE); UROBILINOGEN,URINE 0.2 (NORMAL) E.U./dL (NORMAL)
[2019-12-29 11:46] LABS: CLARITY,URINE CLEAR (CLEAR)
[2019-12-29 11:58] LABS: BACTERIA,URINE None Seen /HPF (None Seen); SQUAMOUS EPITHELIAL CELL,UR RARE Squamous (<= Few)
[2019-12-29 12:13] LABS: ALBUMIN 3.9 g/dL (3.2-5.5); ALBUMIN/GLOBULIN RATIO 1.3 (1.0-2.2); BILIRUBIN,TOTAL 0.3 mg/dL (0.2-1.0); CALCIUM 8.9 mg/dL (8.5-10.3); CREATININE 0.7 mg/dL (0.6-1.2); TOTAL PROTEIN 6.9 g/dL (6.7-8.2)
== END ==
LOC: LAB.WCP 08:58
PROVIDERS: ATTEND Family Medicine
DX: R32 Unspecified urinary incontinence (principal)
CPT/HCPCS: 36415; 80053; 81001; 87086

== ENCOUNTER 2020-03-24 08:00 | Outpatient (CLI) | payer MEDICARE, MEDICAID ==
[2020-03-24 12:07] LABS: BASOPHILS # (AUTO) 0.1 10^3/uL (0.0-0.1); EOSINOPHILS # (AUTO) 0.1 10^3/uL (0.0-0.7); EOSINOPHILS % (AUTO) 1.7 %; HGB - HEMOGLOBIN 13.8 g/dL (14.0-18.0); LYMPHOCYTES # (AUTO) 2.2 10^3/uL (1.5-3.5); LYMPHOCYTES % (AUTO) 27.4 %; MEAN CORPUSCULAR HEMOGLOBIN 30.6 pg (27.0-31.0); MEAN CORPUSCULAR HGB CONC 32.7 g/dL (32.0-36.0); MEAN CORPUSCULAR VOLUME 93.6 fL (80.0-94.0); MEAN PLATELET VOLUME 9.7 fL (7.4-11.4); MONOCYTES # (AUTO) 0.5 10^3/uL (0.0-1.0); MONOCYTES % (AUTO) 6.2 %; NEUTROPHILS # (AUTO) 5.1 10^3/uL (1.5-6.6); NEUTROPHILS % (AUTO) 63.5 %; PLT - PLATELET COUNT 287 10^3/uL (130-450); RED BLOOD COUNT 4.51 10^6/uL (4.70-6.10); RED CELL DISTRIBUTION WIDTH 11.9 % (12.0-15.0); WHITE BLOOD COUNT 8.1 x10^3/uL (4.8-10.8)
[2020-03-24 12:17] LABS: ALBUMIN 3.9 g/dL (3.2-5.5); ALBUMIN/GLOBULIN RATIO 1.1 (1.0-2.2); ALKALINE PHOSPHATASE 61 IU/L (42-121); ALT ALANINE AMINOTRANSFERASE 10 IU/L (10-60); AST ASPARTATE AMINOTRANSFERASE 13 IU/L (10-42); BILIRUBIN,TOTAL 0.5 mg/dL (0.2-1.0); BUN - BLOOD UREA NITROGEN 10 mg/dL (6-20); CALCIUM 9.4 mg/dL (8.5-10.3); CARBON DIOXIDE - CO2 26 mmol/L (21-32); CHLORIDE 105 mmol/L (101-111); CHOL/HDL RATIO 5.9 (<5.0); CHOLESTEROL 220 mg/dL; GLUCOSE 113 mg/dL (70-100); HDL CHOLESTEROL 37 mg/dL; LDL CHOLESTEROL,CALCULATED 155 mg/dL; LDL/HDL RATIO 4.2 (<3.6); SODIUM 139 mmol/L (135-145); TOTAL PROTEIN 7.4 g/dL (6.7-8.2); VLDL CHOLESTEROL 28 mg/dL
== END 2020-03-24 23:59 | disposition home or self-care (01) ==
LOC: LAB.WCP 08:00
PROVIDERS: ATTEND Internal Medicine
DX: Z13.9 Encounter for screening, unspecified (principal); F33.0 Major depressive disorder, recurrent, mild; M54.16 Radiculopathy, lumbar region; Z79.899 Other long term (current) drug therapy; Z12.5 Encounter for screening for malignant neoplasm of prostate
CPT/HCPCS: 36415; 80053; 80061; 84443; 85025; G0103; 83721; 84153

== ENCOUNTER 2020-04-12 16:09 | Outpatient (CLI) | payer MEDICARE, MEDICAID ==
--- NOTE | 2020-04-12 17:04 | Ultrasound Report ---
PROCEDURE: Duplex Lwr Ext Arterial RT INDICATIONS: PERIPHERAL ARTERY DISEASE TECHNIQUE: Color and pulse Doppler interrogation was performed of the right lower extremity arterial system, wit h image documentation. COMPARISON: None FINDINGS: Common femoral artery: 116 cm/sec, with triphasic flow. Deep femoral artery: 99 cm/sec, with triphasic flow. Proximal superficial femoral artery: 115 cm/sec, with triphasic flow. Mid superficial femoral artery: 84 cm/sec, with triphasic flow. Distal superficial femoral artery: 68 cm/sec, with triphasic flow. Popliteal artery: 60 cm/sec, with triphasic flow. Posterior tibial artery: 66 cm/sec, with triphasic flow. Anterior tibial artery/dorsalis pedis: 52 cm/sec, with triphasic flow. Jacques-scale imaging description: No hemodynamically significant stenosis. IMPRESSION: No hemodynamically significant stenosis of the right lower extremity. Normal triphasic waveforms are present throughout. Reviewed by: Martha Whitman MD on 04/12/2020 5:03 PM PST Approved by: Martha Whitman MD on 04/12/2020 5:03 PM PST Station ID: [id number]
== END 2020-04-12 16:10 | disposition home or self-care (01) ==
LOC: DI 16:09
PROVIDERS: ATTEND Family Medicine
DX: I73.9 Peripheral vascular disease, unspecified (principal)

== ENCOUNTER 2020-05-10 07:00 | Outpatient (CLI) | payer MEDICARE, MEDICAID ==
--- NOTE | 2020-05-10 16:35 | XRAY Report ---
PROCEDURE: Hand 3 View RT INDICATIONS: CONTUSION OF R HAND TECHNIQUE: 3 views of the hand acquired. COMPARISON: None. FINDINGS: Bones: No acute fractures or dislocations. No suspicious bony lesions. Soft tissues: No suspicious soft tissue calcifications. IMPRESSION: No acute osseous abnormality. If there is clinical concern or persistent symptoms, further evaluation with repeat radiographs or advanced imaging (e.g. CT, MRI) may be obtained for further evaluation. Reviewed by: Wilder Durán MD on 05/10/2020 4:34 PM [facility] Approved by: Wilder Durán MD on 05/10/2020 4:34 PM [facility] Station ID: [id number]
== END 2020-05-10 23:59 | disposition home or self-care (01) ==
LOC: DI.N 07:00
PROVIDERS: ATTEND Physician Assistant Medical
DX: S60.221A Contusion of right hand, initial encounter (principal)

== ENCOUNTER 2020-06-02 13:35 | Outpatient (CLI) | payer MEDICARE, MEDICAID | END 2020-06-02 13:36 | disposition critical access hospital (66) | LOC: EMS 13:35 | PROVIDERS: ATTEND Surgery | DX: M79.604 Pain in right leg (principal) | CPT/HCPCS: A0425; A0429 ==

== ENCOUNTER 2020-06-02 14:14 | Emergency (ER) | payer MEDICARE, MEDICAID ==
[2020-06-02 14:22] VITALS: BP 135/95
[2020-06-02] MEDS ORDERED: THIAMINE 100 MG TABLET PO STA (14:22)
[2020-06-02] MEDS ORDERED: ACETAMINOPHEN 325 MG TABLET PO STA (14:22)
--- NOTE | 2020-06-02 14:26 | ED Physician Documentation ---
History of Present Illness - Stated complaint Stated Complaint: GLF - Chief complaint Chief Complaint: General - History obtained from History obtained from: Patient, EMS - Additonal information Additional information: 54-year-old gentleman with history of alcoholism fell at home today. He says his only injury is the right hip. He was unable to get back up on his own and was on the ground for about 10 minutes. His only complaint is the right hip and also wanting to go into detox. He does not think he hit his head. Review of Systems Ten Systems: 10 systems reviewed and negative Constitutional: reports: Reviewed and negative Eyes: reports: Reviewed and negative Nose: reports: Reviewed and negative Throat: reports: Reviewed and negative Cardiac: reports: Reviewed and negative PD PAST MEDICAL HISTORY - Past Medical History Cardiovascular: None Respiratory: None Neuro: None Endocrine/Autoimmune: None GI: GERD, Pancreatitis : None HEENT: None Psych: Anxiety, Other Musculoskeletal: Chronic back pain Derm: None - Past Surgical History Past Surgical History: Yes General: Cholecystectomy, Colonoscopy Ortho: Rotator cuff repair HEENT: Other - Present Medications Home Medications: Ambulatory Orders Medication Instructions Recorded Confirmed QUEtiapine [SEROquel] 50 mg ORAL QPM 08/14/14 11/11/19 Hydrocodone/Acetaminophen 1 tab PO QID 06/11/19 11/11/19 [Hydrocodone-Acetamin 5-325 mg] Cyclobenzaprine [Flexeril] 10 mg PO TID PRN #20 tablet 10/02/19 11/11/19 Acamprosate Calcium 333 mg PO DAILY 11/11/19 11/11/19 Acyclovir 400 mg PO TID #15 tablet 11/13/19 Lorazepam [Ativan] 1 mg PO Q6H PRN #30 tablet 11/13/19 Pnv No.95/Ferrous Fum/Folic AC 1 each PO DAILY #30 tablet 11/13/19 [ Tablet] Saccharomyces Boulardii [Florastor] 250 mg PO BID #10 capsule 11/13/19 Thiamine HCl [Vitamin B-1] 100 mg PO DAILY #30 tablet 11/13/19 cephALEXin [Keflex] 250 mg PO QID #20 capsule 11/13/19 - Allergies Allergies/Adverse Reactions: Allergies Allergy/AdvReac Type Severity Reaction Status Date / Time buspirone [From BuSpar] Allergy Unknown Verified 11/24/19 07:56 pregabalin [From Lyrica] Allergy Unknown Verified 11/24/19 07:56 Penicillins AdvReac Unknown Rash Verified 10/02/19 09:29 - Social History Does the pt smoke?: Yes Smoking Status: Current every day smoker Does the pt drink ETOH?: Yes Does the pt have substance abuse?: No - Immunizations Immunizations are current?: Yes - POLST Patient has POLST: No POLST Status: Full Code PD ED PE NORMAL - Vitals Vital signs reviewed: Yes - General General: Alert and oriented X 3, No acute distress - HEENT HEENT: Other (There is asymmetry of the pupils, the right being slightly larger than the left, it appears to be due to prior trauma and he admits that this is probably a chronic finding) - Neck Neck: No bony TTP - Cardiac Cardiac: RRR, No murmur - Respiratory Respiratory: No respiratory distress, Clear bilaterally - Abdomen Abdomen: Normal bowel sounds, Soft, Non tender - Back Back: No CVA TTP, No spinal TTP - Derm Derm: Normal color, Warm and dry - Extremities Extremities: Other (He is holding both legs flexed at the hips equally, nonshortened. Minimal tenderness over the right hip but he does have pain with internal and external rotation.) - Neuro Neuro: Alert and oriented X 3, No motor deficit, No sensory deficit, Normal speech (but slurred) Results - Vitals Vitals: Vital Signs - 24 hr 06/02/20 14:18 Temperature 37.7 C Heart Rate 101 H Respiratory 10 L Rate Blood Pressure 135/95 H O2 Saturation 100 Oxygen O2 Source Room air - Labs Labs: Laboratory Tests 06/02/20 06/02/20 06/02/20 14:21 14:31 15:01 WBC 8.0 RBC 4.75 Hgb 14.8 Hct 44.0 MCV 92.6 MCH 31.2 H MCHC 33.6 RDW 15.1 H Plt Count 276 MPV 8.3 Neut # (Auto) 4.0 Lymph # (Auto) 3.5 [place] # (Auto) 0.5 Eos # (Auto) 0.0 Baso # (Auto) 0.1 Absolute Nucleated RBC 0.00 Nucleated RBC % 0.0 Sodium Potassium Chloride Carbon Dioxide Anion Gap BUN Creatinine Estimated GFR (MDRD) Glucose Calcium Total Bilirubin AST ALT Alkaline Phosphatase Total Protein Albumin Globulin Albumin/Globulin Ratio Lipase TSH Urine Color LIGHT YELLOW Urine Clarity CLEAR Urine pH 6.5 Ur Specific [place] <=1.005 Urine Protein NEGATIVE Urine Glucose (UA) NEGATIVE Urine Ketones NEGATIVE Urine Occult Blood NEGATIVE Urine Nitrite NEGATIVE Urine Bilirubin NEGATIVE Urine Urobilinogen 0.2 (NORMAL) Ur Leukocyte Esterase NEGATIVE Ur Microscopic Review NOT INDICATED Urine Culture Comments NOT INDICATED Salicylates Urine Opiates Screen POSITIVE H Ur Oxycodone Screen NEGATIVE Urine Methadone Screen NEGATIVE Ur Propoxyphene Screen NEGATIVE Acetaminophen Ur Barbiturates Screen NEGATIVE Ur Tricyclics Screen NEGATIVE Ur Phencyclidine Scrn NEGATIVE Ur Amphetamine Screen NEGATIVE U Methamphetamines Scrn NEGATIVE U Benzodiazepines Scrn NEGATIVE Urine Cocaine Screen NEGATIVE U Cannabinoids Screen NEGATIVE Ethyl Alcohol 06/02/20 06/02/20 15:01 15:01 WBC RBC Hgb Hct MCV MCH MCHC RDW Plt Count MPV Neut # (Auto) Lymph # (Auto) [place] # (Auto) Eos # (Auto) Baso # (Auto) Absolute Nucleated RBC Nucleated RBC % Sodium 145 Potassium 4.0 Chloride 102 Carbon Dioxide 29 Anion Gap 14.0 H BUN 22 H Creatinine 0.9 Estimated GFR (MDRD) 88 L Glucose 102 H Calcium 8.9 Total Bilirubin 0.3 AST 34 ALT 17 Alkaline Phosphatase 72 Total Protein 7.4 Albumin 3.9 Globulin 3.5 Albumin/Globulin Ratio 1.1 Lipase 38 TSH 6.15 H Urine Color Urine Clarity Urine pH Ur Specific [place] Urine Protein Urine Glucose (UA) Urine Ketones Urine Occult Blood Urine Nitrite Urine Bilirubin Urine Urobilinogen Ur Leukocyte Esterase Ur Microscopic Review Urine Culture Comments Salicylates < 6.0 Urine Opiates Screen Ur Oxycodone Screen Urine Methadone Screen Ur Propoxyphene Screen Acetaminophen < 10 L Ur Barbiturates Screen Ur Tricyclics Screen Ur Phencyclidine Scrn Ur Amphetamine Screen U Methamphetamines Scrn U Benzodiazepines Scrn Urine Cocaine Screen U Cannabinoids Screen Ethyl Alcohol 404.8 - Rads (name of study) CT of the head, cervical spine, and 2 view x-ray of the right hip Radiology: EMP read contemporaneously (all neg) PD MEDICAL DECISION MAKING - ED course ED course: 54-year-old gentleman presents intoxicated. Initially complaining of hip pain but it looks like this may be a chronic phenomenon looking at old charts. Relevant images were negative. He was boarding in the ER and had been cooperative and interested in the idea of going to detox but subsequently I was notified that he had eloped from the emergency department. Departure - Departure Disposition: ED Elope Clinical Impression: Alcohol abuse, Hip pain, right Acute alcohol intoxication Qualifiers: Complication of substance-induced condition: uncomplicated Qualified Code(s): F10.920 - Alcohol use, unspecified with intoxication, uncomplicated Condition: Stable Discharge Date/Time: 06/02/20 16:15
[2020-06-02 14:39] LABS: BILIRUBIN,URINE NEGATIVE (NEGATIVE); CLARITY,URINE CLEAR (CLEAR); GLUCOSE, URINE (UA) NEGATIVE (NEGATIVE); KETONES,URINE (UA) NEGATIVE (NEGATIVE); LEUKOCYTE ESTERASE, URINE NEGATIVE (NEGATIVE); NITRITE,URINE NEGATIVE (NEGATIVE); OCCULT BLOOD,URINE NEGATIVE (NEGATIVE); PH,URINE 6.5 PH (5.0-7.5); PROTEIN,URINE NEGATIVE (NEGATIVE); UROBILINOGEN,URINE 0.2 (NORMAL) E.U./dL (NORMAL)
--- NOTE | 2020-06-02 15:01 | CT Report ---
PROCEDURE: CERVICAL SPINE WO INDICATIONS: poss head inj, etoh TECHNIQUE: Noncontrast 3 mm thick sections acquired from the skull base to the T4 level. Sagittal and coronal r eformats were then constructed. For radiation dose reduction, the following was used: automated exp osure control, adjustment of mA and/or kV according to patient size. COMPARISON: None. FINDINGS: Image quality: Excellent. Bones: No acute fractures or dislocations. Chronic appearing motion fracture of the tip of the T1 sp inous process. Visualized superior ribs are intact. Spine degenerative disc disease and facet arthrop athy are noted. Soft tissues: Prevertebral soft tissues are normal in thickness. No paravertebral hematomas. No ap ical pneumothoraces. IMPRESSION: No acute fracture. No acute osseous lesion. If there is continued clinical concern for pathology, the n MRI should be considered for further evaluation. Reviewed by: Amanda Monsivais MD, PhD on 06/02/2020 2:00 PM [facility] Approved by: Amanda Monsivais MD, PhD on 06/02/2020 2:00 PM [facility] Station ID: [id number]
--- NOTE | 2020-06-02 15:02 | XRAY Report ---
PROCEDURE: Hip w/Pelvis 2-3V RT INDICATIONS: hip pain TECHNIQUE: AP pelvis with lateral view(s) of the right hip(s). COMPARISON: None. FINDINGS: Bones: No fractures or dislocations. Mild right hip joint osteoarthritic changes are seen. No evide nce of avascular necrosis of femoral head. Pelvic ring appears intact. No suspicious bony lesions. Soft tissues: The visualized bowel gas pattern is normal. No suspicious soft tissue calcifications. IMPRESSION: No acute right hip fracture or dislocation. No evidence of avascular necrosis of femoral head. Mild right hip joint osteoarthritis. Reviewed by: Abdulaziz Mathis MD on 06/02/2020 3:00 PM PST Approved by: Abdulaziz Mathis MD on 06/02/2020 3:00 PM PST Station ID: [id number]
--- NOTE | 2020-06-02 15:04 | CT Report ---
PROCEDURE: HEAD WO INDICATIONS: poss head inj, etoh TECHNIQUE: Noncontrast 4.5 mm thick angled axial sections acquired from the foramen magnum to the vertex. For r adiation dose reduction, the following was used: automated exposure control, adjustment of mA and/or kV according to patient size. COMPARISON: 10/14/2017. FINDINGS: Image quality: Excellent. CSF spaces: Basal cisterns are patent. No extra-axial fluid collections. Ventricles are normal in size and shape. Brain: No midline shift. No intracranial masses or hemorrhage. Jacques-white matter interface is norm al. Skull and face: Calvarium and visualized facial bones are intact, without suspicious lesions. Sinuses: Visualized sinuses and mastoids are clear. IMPRESSION: No acute intracranial disease process. Reviewed by: Amanda Monsivais MD, PhD on 06/02/2020 2:02 PM [facility] Approved by: Aamnda Monsivais MD, PhD on 06/02/2020 2:02 PM [facility] Station ID: [id number]
[2020-06-02 15:13] LABS: BASOPHILS # (AUTO) 0.1 10^3/uL (0.0-0.1); BASOPHILS % (AUTO) 0.6 %; EOSINOPHILS % (AUTO) 0.1 %; HGB - HEMOGLOBIN 14.8 g/dL (14.0-18.0); LYMPHOCYTES # (AUTO) 3.5 10^3/uL (1.5-3.5); LYMPHOCYTES % (AUTO) 43.7 %; MEAN CORPUSCULAR HEMOGLOBIN 31.2 pg (27.0-31.0); MEAN CORPUSCULAR HGB CONC 33.6 g/dL (32.0-36.0); MEAN CORPUSCULAR VOLUME 92.6 fL (80.0-94.0); MEAN PLATELET VOLUME 8.3 fL (7.4-11.4); MONOCYTES # (AUTO) 0.5 10^3/uL (0.0-1.0); MONOCYTES % (AUTO) 5.6 %; NEUTROPHILS % (AUTO) 49.4 %; PLT - PLATELET COUNT 276 10^3/uL (130-450); RED BLOOD COUNT 4.75 10^6/uL (4.70-6.10); RED CELL DISTRIBUTION WIDTH 15.1 % (12.0-15.0)
[2020-06-02 15:27] LABS: ACETAMINOPHEN < 10 ug/mL (10-30); ALBUMIN 3.9 g/dL (3.2-5.5); ALBUMIN/GLOBULIN RATIO 1.1 (1.0-2.2); ALKALINE PHOSPHATASE 72 IU/L (42-121); ALT ALANINE AMINOTRANSFERASE 17 IU/L (10-60); AST ASPARTATE AMINOTRANSFERASE 34 IU/L (10-42); BILIRUBIN,TOTAL 0.3 mg/dL (0.2-1.0); BUN - BLOOD UREA NITROGEN 22 mg/dL (6-20); CALCIUM 8.9 mg/dL (8.5-10.3); CARBON DIOXIDE - CO2 29 mmol/L (21-32); CHLORIDE 102 mmol/L (101-111); CREATININE 0.9 mg/dL (0.6-1.2); GLUCOSE 102 mg/dL (70-100); LIPASE 38 U/L (22-51); SALICYLATE < 6.0 mg/dL; TOTAL PROTEIN 7.4 g/dL (6.7-8.2)
[2020-06-02 15:52] LABS: MUDS CUTOFF CONCENTRATIONS CUTOFF CONC BELOW:
[2020-06-02 16:19] LABS: AMPHETAMINE SCREEN,URINE NEGATIVE (NEGATIVE); BENZODIAZEPINES SCREEN, URINE NEGATIVE (NEGATIVE); COCAINE SCREEN URINE NEGATIVE (NEGATIVE); METHADONE SCREEN, URINE NEGATIVE (NEGATIVE); METHAMPHETAMINES SCREEN, URINE NEGATIVE (NEGATIVE); OPIATE SCREEN, URINE POSITIVE (NEGATIVE); OXYCODONE SCREEN, URINE NEGATIVE (NEGATIVE); PROPOXYPHENE SCREEN, URINE NEGATIVE (NEGATIVE); TRICYCLIC ANTIDEPRESSANT,URINE NEGATIVE (NEGATIVE)
[2020-06-02 17:06] LABS: C. PNEUMONIAE- RESP PCR PANEL NOT DETECTED
== END 2020-06-02 16:15 | disposition left against medical advice (07) ==
LOC: EDUNIT# → ED 14:14
DX: F10.129 Alcohol abuse with intoxication, unspecified (principal); M16.11 Unilateral primary osteoarthritis, right hip; H57.04 Mydriasis; F17.200 Nicotine dependence, unspecified, uncomplicated; Z20.822 Contact with and (suspected) exposure to COVID-19; Z53.29 Procedure and treatment not carried out because of patient's decision for other reasons
CPT/HCPCS: 36415; 70450; 72125; 73502; 80053; 81003; 83690; 84443; 85025; 87631; 99284; A9270; 0202U; 80306; 80307; 80320; 80329; 81001; 87086

== ENCOUNTER 2020-07-06 10:59 | Outpatient (CLI) | payer MEDICARE, MEDICAID | END 2020-07-06 11:00 | disposition short-term general hospital (02) | LOC: EMS 10:59 | DX: K62.89 Other specified diseases of anus and rectum (principal) | CPT/HCPCS: A0425; A0429; A0888 ==

== ENCOUNTER 2020-08-27 08:00 | Outpatient (CLI) | payer MEDICARE, MEDICAID ==
[2020-08-27 17:41] LABS: BASOPHILS # (AUTO) 0.1 10^3/uL (0.0-0.1); BASOPHILS % (AUTO) 0.7 %; EOSINOPHILS # (AUTO) 0.3 10^3/uL (0.0-0.7); EOSINOPHILS % (AUTO) 2.7 %; HCT - HEMATOCRIT 42.4 % (42.0-52.0); HGB - HEMOGLOBIN 13.7 g/dL (14.0-18.0); LYMPHOCYTES # (AUTO) 2.1 10^3/uL (1.5-3.5); LYMPHOCYTES % (AUTO) 19.9 %; MEAN CORPUSCULAR HEMOGLOBIN 31.9 pg (27.0-31.0); MEAN CORPUSCULAR HGB CONC 32.3 g/dL (32.0-36.0); MEAN CORPUSCULAR VOLUME 98.6 fL (80.0-94.0); MEAN PLATELET VOLUME 9.7 fL (7.4-11.4); MONOCYTES # (AUTO) 0.7 10^3/uL (0.0-1.0); MONOCYTES % (AUTO) 7.1 %; NEUTROPHILS # (AUTO) 7.3 10^3/uL (1.5-6.6); NEUTROPHILS % (AUTO) 69.3 %; PLT - PLATELET COUNT 294 10^3/uL (130-450); RED CELL DISTRIBUTION WIDTH 13.2 % (12.0-15.0); WHITE BLOOD COUNT 10.5 x10^3/uL (4.8-10.8)
[2020-08-27 18:09] LABS: ALBUMIN 4.2 g/dL (3.2-5.5); ALBUMIN/GLOBULIN RATIO 1.3 (1.0-2.2); ALKALINE PHOSPHATASE 70 IU/L (42-121); ALT ALANINE AMINOTRANSFERASE 13 IU/L (10-60); AST ASPARTATE AMINOTRANSFERASE 14 IU/L (10-42); BILIRUBIN,TOTAL 0.5 mg/dL (0.2-1.0); BUN - BLOOD UREA NITROGEN 8 mg/dL (6-20); CALCIUM 9.2 mg/dL (8.5-10.3); CARBON DIOXIDE - CO2 28 mmol/L (21-32); CHLORIDE 101 mmol/L (101-111); CHOL/HDL RATIO 4.4 (<5.0); CHOLESTEROL 204 mg/dL; CREATININE 0.8 mg/dL (0.6-1.2); GFR - MDRD 100 (>89); GLUCOSE 105 mg/dL (70-100); HDL CHOLESTEROL 46 mg/dL; LDL CHOLESTEROL,CALCULATED 134 mg/dL; LDL/HDL RATIO 2.9 (<3.6); POTASSIUM 4.3 mmol/L (3.5-5.0); SODIUM 139 mmol/L (135-145); TOTAL PROTEIN 7.5 g/dL (6.7-8.2); TRIGLYCERIDES 119 mg/dL; VLDL CHOLESTEROL 24 mg/dL
[2020-08-27 18:15] LABS: THYROID STIMULATING HORMONE 4.45 uIU/mL (0.34-5.60)
[2020-08-27 20:29] LABS: ESTIMATED AVERAGE GLUCOSE 108 mg/dL (70-100); HEMOGLOBIN A1c% 5.4 % (4.27-6.07)
== END 2020-08-27 23:59 | disposition home or self-care (01) ==
LOC: LAB.WCP 08:00
PROVIDERS: ATTEND Internal Medicine
DX: F41.9 Anxiety disorder, unspecified (principal); R13.10 Dysphagia, unspecified; E78.5 Hyperlipidemia, unspecified; F32.9 Major depressive disorder, single episode, unspecified; R79.89 Other specified abnormal findings of blood chemistry
CPT/HCPCS: 36415; 80053; 80061; 83036; 83721; 84443; 85025

== ENCOUNTER 2020-11-09 17:06 | Outpatient (CLI) | payer MEDICARE, MEDICAID | END 2020-11-09 17:07 | disposition home or self-care (01) | LOC: COV 17:06 | PROVIDERS: ATTEND Surgery | DX: Z01.812 Encounter for preprocedural laboratory examination (principal); D64.9 Anemia, unspecified; R10.9 Unspecified abdominal pain; R13.10 Dysphagia, unspecified; Z20.822 Contact with and (suspected) exposure to COVID-19 ==

== ENCOUNTER 2020-12-30 14:48 | Outpatient (CLI) | payer MEDICARE, MEDICAID | END 2020-12-30 14:49 | disposition critical access hospital (66) | LOC: EMS 14:48 | DX: R10.30 Lower abdominal pain, unspecified (principal) | CPT/HCPCS: A0425; A0429 ==

== ENCOUNTER 2020-12-30 15:11 | Observation (INO) | payer MEDICARE, MEDICAID ==
[2020-12-30] MEDS ORDERED: SODIUM CHLORIDE 0.9% 1,000 ML IV STA (15:31)
[2020-12-30] MEDS ORDERED: THIAMINE INJ 100 MG in SODIUM CHLORIDE 0.9% 50 ML IV STA (15:31)
[2020-12-30] MEDS ORDERED: ONDANSETRON 4 MG/2 ML VIAL IVP STA (15:31)
[2020-12-30] MEDS ORDERED: HYDROmorphone 1 MG/ML CARPUJECT IVP STA ×2 (15:31→17:04)
--- NOTE | 2020-12-30 15:32 | ED Physician Documentation ---
PD HPI ABD PAIN - Stated complaint Stated Complaint: ABD PX - Chief complaint Chief Complaint: Abd Pain - History obtained from History obtained from: Patient - Additional information Additional information: 55-year-old gentleman with history of alcoholism was sober for 8 months but relapsed 6 days ago. This was in response to lower abdominal pain now associated with 3 days worth of diarrhea and vomiting with streaks of blood. Review of Systems Ten Systems: 10 systems reviewed and negative Constitutional: reports: Reviewed and negative Cardiac: reports: Reviewed and negative Respiratory: reports: Reviewed and negative PD PAST MEDICAL HISTORY - Past Medical History Cardiovascular: None Respiratory: None Neuro: None Endocrine/Autoimmune: None GI: GERD, Pancreatitis : None HEENT: None Psych: Anxiety, Other Musculoskeletal: Chronic back pain Derm: None - Past Surgical History Past Surgical History: Yes General: Cholecystectomy, Colonoscopy Ortho: Rotator cuff repair HEENT: Other - Present Medications Home Medications: Ambulatory Orders Medication Instructions Recorded Confirmed QUEtiapine [SEROquel] 50 mg ORAL QPM 08/14/14 11/11/19 Hydrocodone/Acetaminophen 1 tab PO QID 06/11/19 11/11/19 [Hydrocodone-Acetamin 5-325 mg] Cyclobenzaprine [Flexeril] 10 mg PO TID PRN #20 tablet 10/02/19 11/11/19 Acamprosate Calcium 333 mg PO DAILY 11/11/19 11/11/19 Acyclovir 400 mg PO TID #15 tablet 11/13/19 Lorazepam [Ativan] 1 mg PO Q6H PRN #30 tablet 11/13/19 Pnv No.95/Ferrous Fum/Folic AC 1 each PO DAILY #30 tablet 11/13/19 [ Tablet] Saccharomyces Boulardii [Florastor] 250 mg PO BID #10 capsule 11/13/19 Thiamine HCl [Vitamin B-1] 100 mg PO DAILY #30 tablet 11/13/19 cephALEXin [Keflex] 250 mg PO QID #20 capsule 11/13/19 - Allergies Allergies/Adverse Reactions: Allergies Allergy/AdvReac Type Severity Reaction Status Date / Time buspirone [From BuSpar] Allergy Unknown Verified 12/30/20 15:28 pregabalin [From Lyrica] Allergy Unknown Verified 12/30/20 15:28 Penicillins AdvReac Unknown Rash Verified 12/30/20 15:28 - Social History Does the pt smoke?: Yes Smoking Status: Current every day smoker Does the pt drink ETOH?: Yes Does the pt have substance abuse?: No - Immunizations Immunizations are current?: Yes - POLST Patient has POLST: No POLST Status: Full Code PD ED PE NORMAL - Vitals Vital signs reviewed: Yes - General General: Alert and oriented X 3, Other (Appears uncomfortable) - HEENT HEENT: PERRL, EOMI - Neck Neck: Supple, no meningeal sign, No bony TTP - Cardiac Cardiac: RRR, No murmur - Respiratory Respiratory: No respiratory distress, Clear bilaterally - Abdomen Abdomen: Other (Modest diffuse abdominal tenderness without surgical signs) - Back Back: No CVA TTP, No spinal TTP - Derm Derm: Normal color, Warm and dry - Extremities Extremities: No deformity, No tenderness to palpate - Neuro Neuro: Alert and oriented X 3, Normal speech Results - Vitals Vitals: Vital Signs - 24 hr 12/30/20 15:22 Temperature 36.6 C Heart Rate 92 Respiratory 16 Rate Blood Pressure 144/98 H O2 Saturation 98 Oxygen O2 Source Room air - Labs Labs: Laboratory Tests 12/30/20 12/30/20 15:31 15:31 WBC 4.1 L RBC 3.82 L Hgb 12.4 L Hct 36.7 L MCV 96.1 H MCH 32.5 H MCHC 33.8 RDW 15.9 H Plt Count 228 MPV 8.6 Neut # (Auto) 2.3 Lymph # (Auto) 1.5 [place] # (Auto) 0.3 Eos # (Auto) 0.0 Baso # (Auto) 0.1 Absolute Nucleated RBC 0.00 Nucleated RBC % 0.0 Sodium 141 Potassium 3.9 Chloride 101 Carbon Dioxide 24 Anion Gap 16.0 H BUN 7 Creatinine 0.7 Estimated GFR (MDRD) 117 Glucose 102 H Calcium 8.9 Total Bilirubin 0.6 AST 25 ALT 13 Alkaline Phosphatase 118 Total Protein 7.8 Albumin 3.9 Globulin 3.9 Albumin/Globulin Ratio 1.0 Lipase 48 Ethyl Alcohol 281.7 PD MEDICAL DECISION MAKING - ED course ED course: 55-year-old gentleman with recent relapsed alcoholism presents with lower abdominal pain. He has some blood-streaked emesis as well. No report on the chart or suggestion of varices. Does not really have cirrhotic picture on the labs except for mild leukopenia. CT demonstrates evidence of acute pancreatitis and colitis. Will place in observation for serial H&H, treatment with PPI and bowel rest. Spoke with Dr. Calle for same at 5:10 PM. Departure - Departure Disposition: ED Place in Observation Clinical Impression: Alcohol abuse, Colitis Abdominal pain Qualifiers: Abdominal location: generalized Qualified Code(s): R10.84 - Generalized abdominal pain Hematemesis Qualifiers: Nausea presence: with nausea Qualified Code(s): K92.0 - Hematemesis Pancreatitis Qualifiers: Chronicity: acute Pancreatitis type: alcohol induced Acute pancreatitis complication: no infection or necrosis Qualified Code(s): K85.20 - Alcohol i nduced acute pancreatitis without necrosis or infection Condition: Good
[2020-12-30 15:37] LABS: BASOPHILS # (AUTO) 0.1 10^3/uL (0.0-0.1); BASOPHILS % (AUTO) 1.5 %; EOSINOPHILS % (AUTO) 0.5 %; HCT - HEMATOCRIT 36.7 % (42.0-52.0); HGB - HEMOGLOBIN 12.4 g/dL (14.0-18.0); LYMPHOCYTES # (AUTO) 1.5 10^3/uL (1.5-3.5); LYMPHOCYTES % (AUTO) 37.1 %; MEAN CORPUSCULAR HEMOGLOBIN 32.5 pg (27.0-31.0); MEAN CORPUSCULAR HGB CONC 33.8 g/dL (32.0-36.0); MEAN CORPUSCULAR VOLUME 96.1 fL (80.0-94.0); MEAN PLATELET VOLUME 8.6 fL (7.4-11.4); MONOCYTES # (AUTO) 0.3 10^3/uL (0.0-1.0); MONOCYTES % (AUTO) 6.1 %; NEUTROPHILS # (AUTO) 2.3 10^3/uL (1.5-6.6); NEUTROPHILS % (AUTO) 54.6 %; PLT - PLATELET COUNT 228 10^3/uL (130-450); RED BLOOD COUNT 3.82 10^6/uL (4.70-6.10); RED CELL DISTRIBUTION WIDTH 15.9 % (12.0-15.0); WHITE BLOOD COUNT 4.1 x10^3/uL (4.8-10.8)
[2020-12-30 15:49] LABS: ALBUMIN 3.9 g/dL (3.2-5.5); BILIRUBIN,TOTAL 0.6 mg/dL (0.2-1.0); CALCIUM 8.9 mg/dL (8.5-10.3); CREATININE 0.7 mg/dL (0.6-1.2); ETOH - ETHANOL 281.7 mg/dL; POTASSIUM 3.9 mmol/L (3.5-5.0); TOTAL PROTEIN 7.8 g/dL (6.7-8.2)
[2020-12-30] MEDS ORDERED: IOPAMIDOL-300 50 ML VIAL ONE (16:12)
[2020-12-30] MEDS ORDERED: IOPAMIDOL-300 50 ML VIAL IVP ONE (16:25)
--- NOTE | 2020-12-30 16:39 | CT Report ---
PROCEDURE: Abdomen/Pelvis W INDICATIONS: IV only, low abd pain CONTRAST: IV CONTRAST: Isovue 300 ml: 100 PO CONTRAST: *NO PO CONTRAST TECHNIQUE: After the administration of IV contrast, 5 mm thick sections acquired from the diaphragms to the symp hysis. 5 mm thick coronal and sagittal reformats were acquired. For radiation dose reduction, the f ollowing was used: automated exposure control, adjustment of mA and/or kV according to patient size. COMPARISON: 11/11/2019. FINDINGS: Image quality: Excellent. ABDOMEN: Lung bases: Lung bases are clear. Heart size is normal. Solid organs: Liver and spleen are normal in size and enhancement. Hepatic steatosis is again seen a nd unchanged. Gallbladder is surgically absent. Biliary system is non dilated. Small amount of fluid adjacent to head and uncinate process of pancreas with heterogeneous contrast enhancement in head an d uncinate process of pancreas and adjacent peripancreatic fat stranding concerning for acute pancrea titis in this area. Body and tail of pancreas show normal enhancement. No adrenal nodules. Kidneys d emonstrate normal size and enhancement, without hydronephrosis. Peritoneum and bowel: There is no bowel obstruction. Postsurgical changes are noted in sigmoid colon with intact anastomosis. Mild fecal stasis within the colon is seen. Appendix is visualized and is wi thin normal limits. There is suggestion of wall thickening and edema involving ascending colon and tr ansverse colon as well as proximal to midportion of the ascending colon concerning for infectious or inflammatory colitis. No free fluid or free air is seen. No gastric or small bowel wall thickening. Nodes and vessels: No retroperitoneal or mesenteric adenopathy by size criteria. Aorta and inferior vena cava are normal in size. Miscellaneous: No ventral hernias. PELVIS: Genitourinary: Bladder wall thickness is normal. Miscellaneous: No inguinal hernias or adenopathy. Bones: No suspicious bony lesions. No vertebral body compression fractures. IMPRESSION: 1. Inflammatory changes and fluid adjacent to head and uncinate process of pancreas with heterogeneou s contrast parenchymal enhancement in this region concerning for acute pancreatitis in this area sugg est clinical correlation. 2. Suggestion of infectious or inflammatory colitis involving ascending colon, transverse colon and p roximal to mid descending colon. No abscess collection. No free fluid or free air. Postsurgical abel es seen in sigmoid colon. 3. Mild hepatic steatosis. Prior cholecystectomy. Reviewed by: Abdulaziz Mathis MD on 12/30/2020 4:37 PM PDT Approved by: Abdulaziz Mathis MD on 12/30/2020 4:37 PM PDT Station ID: [id number]
[2020-12-30] MEDS ORDERED: PANTOPRAZOLE 40 MG VIAL IVP STA (17:05)
[2020-12-30] MEDS ORDERED: SODIUM CHLORIDE FLUSH 0.9% 10 ML SYRINGE IVP PRN (17:10)
[2020-12-30] MEDS ORDERED: ONDANSETRON ODT 4 MG TABLET TL PRN (17:10)
[2020-12-30] MEDS ORDERED: PROCHLORPERAZINE 10 MG/2 ML VIAL IVP PRN (17:10)
--- NOTE | 2020-12-30 17:45 | HISTORY & PHYSICAL EXAMINATION ---
Chief Complaint - Chief Complaint Chief Complaint: abdominal pain , diarrhea, History of Present Illness - Admitted From Admitted From:: ED - History Obtained From Records Reviewed: from [facility] History obtained from: Ed provider, ED notes and patient Exam Limitations: history limitations, patient report of history is inconsistent - History of Present Illness HPI Comment/Other: 55 year old man presented to ED with abdominal pain. He reported having been sober x 8 mos and just started drinking ~ 6 days ago. He told the ED provider he started drinking because he was having lower abdominal pain. He first informed me that he started drinking because his brother in law (not clear when), He denies epigasttric pain . He developed diarrhea and vomiting and hardly keeping food down. No appetite. Had ~ 6 beers today. Emesis is mostly bile. he reports diarrhea is mostly in the morning, "like the vomit", not volumous, no tenesmus, no blood. As I am trying to get the history clear, he says , (still w/ ETOH level of 281), I'm really anxious because I'm withdrawing. He then indicates that he was already having withdrwal symptoms ~ a week ago because he "tried to cut down on his own" (meaning clearly he was drinking before last week. He also indicates he went to detox this morning but they sent him to (?) Later I spoke w/ his wifeBing [phone] and in speaking with her, it is unfortunately clear that he is fabricating much of his history; She notes no one has , hewas hiding his drinking but she realized when he went to [place] a few weeks ago he had been drinking, his affect changed, angry etc. He did at some point tell her his bowel movements had some blood but not clear when and she has not seen this. He indicated he went out today to get shaving cream and came back with a bottle of whiskey (he told me he had 6 beers today; ). She actually called the police because of his affect (not violence). They suggested he go to detox (new detox facility in [place]; ) ; he did follow thru and take self to detox center; he indicated to them that he was having abdominal pain, and evidently they recommmended he present to hospital (that part sounds to be truthful/accurate). also notes he has been in ICU for withdrawal in past ; He indicates his ONLY medication is quetiapine at hs 50 mg; will wait for pharmacy to do med rec before ordering vicodin or acyclovir or flexril on med list Not Covid vaccinated, reports always wearing mask, not out with people. is vaccinated History - Past Medical History Cardiovascular: reports: None, Atrial fibrillation (8 mos ago atrial fibrillation (he says due to etoh), was on propranolol but BP too low) Respiratory: reports: None Neuro: reports: None Endocrine/Autoimmune: reports: None GI: reports: GERD, Pancreatitis (pt reports Many years ago), Other : reports: None HEENT: reports: None Psych: reports: Anxiety, Other (history of severe ETOH abuse w/ history of ICU for withdrawal) Musculoskeletal: reports: Chronic back pain Derm: reports: None MRSA Hx?: No - Past Surgical History General: reports: Cholecystectomy, Colonoscopy, Other (colonoscopy takedown) Ortho: reports: Rotator cuff repair HEENT: reports: Other - Family & Social History Family History: Mother: , Cancer (Mother from breast cancer, father from lymphoma), Father: , Cancer, Sister: Alive and Well, Brother: Alive and Well, Other family: CAD (1 grandfather had heart disease) Family History Comment/Other: grandfather had heart disease, Mother from breast cancer, father from lymphoma Social History Notes: Patient vague on his alcohol use "just a few beers" ( reports came home w/ whiskey when he reports beers). Vague on smoking history; "used to smoke at least 1 PPD, reports now smoking only "a few cigarettes / day ~ 5) - Substance History Use: Uses substance without health or social issues: Cannabis Abuse Issues: Intoxication - POLST Patient has POLST: No POLST Status: Full Code Meds/Allgy - Home Medications Home Medications: Ambulatory Orders Medication Instructions Recorded Confirmed Hydrocodone/Acetaminophen 1 tab PO QID PRN 06/11/19 12/31/20 [Hydrocodone-Acetamin 5-325 mg] Cyclobenzaprine [Flexeril] 10 mg PO TID PRN #20 tablet 10/02/19 12/31/20 Omeprazole Magnesium 20 mg PO DAILY 12/30/20 12/31/20 Quetiapine Fumarate [Seroquel] 50 mg PO QPM 12/31/20 12/31/20 - Allergies Allergies/Adverse Reactions: Allergies Allergy/AdvReac Type Severity Reaction Status Date / Time buspirone [From BuSpar] Allergy Unknown Verified 12/30/20 15:28 pregabalin [From Lyrica] Allergy Unknown Verified 12/30/20 15:28 Penicillins AdvReac Unknown Rash Verified 12/30/20 15:28 Review of Systems - Constitutional Constitutional: reports: Poor appetite. denies: Fever, Chills, Diaphoresis - Eyes Eyes: denies: Blurred vision - Cardiovascular Cariovascular: reports: Palpitations (not currently; that was the symptom back with afib). denies: Chest pain, Lightheadedness, Syncope, Exertional dyspnea - Respiratory Respiratory: denies: Cough, Wheezing, Orthopnea, SOB at rest - Gastrointestinal Gastrointestinal: reports: Other (as per HPI) - Genitourinary Genitourinary: denies: Dysuria, Frequency, Urgency - Musculoskeletal Musculoskeletal: reports: Back pain (chronic back pain from falling off a ladder) - Neurological Neurological: denies: Memory problems, Abnormal gait - Psychiatric Psychiatric: reports: Anxiety (feels very anxious now bc feels withdrawaling) - Endocrine Endocrine: denies: Polyuria, Polydypsia, Intolerance to cold, Intolerance to heat - Hematologic/Lymphatic Hematologic/Lymphatic: denies: Blood clots Exam - Vital Signs Vital Signs: Vital Signs x48h Temp Pulse Resp BP Pulse Ox 12/30/20 15:22 36.6 C 92 16 144/98 H 98 - Physical Exam General Appearance: positive: No acute distress, Alert, Moderate distress, Other (no diaphoresis, no tremor) Eyes Bilateral: positive: Normal inspection, No scleral icterus ENT: positive: Dry mucous membranes Neck: positive: Nml inspection Respiratory: positive: No respiratory distress, Breath sounds nml Cardiovascular: positive: Regular rate & rhythm (HR90). negative: JVD present, Systolic murmur Abdomen: positive: No distention. negative: Tenderness (does not describe epigastric tenderness, mild to moderate tenderness w/ palpation not directl over epigastrium, but on either side, reports pain w/ palpation LLQ and RLQ, and suprapubic. Hypoactive BS, but present. Novomiting during exam) Skin: positive: Warm, Dry. negative: Diaphoresis, Skin rash Extremities: negative: Pedal edema Neurologic/Psychiatric: positive: Oriented x3, Motor nml (moves without difficulty), Other (no tremor). negative: Mood/affect nml (somewhat anxious,), Depressed mood/affect Conclusion/Plan - Problem List (1) Colitis Conclusion/Plan: no associated fever , leukocytosis or bloody diarrhea to suggest Cdif ? related to sustained diarrhea from ETOH and withdrawal? IVF, send stool for fecal pathogens, check hemocult doubt ischemic colitis, will reconsider if hematochezia no antibiotics at this time (2) Pancreatitis, acute Conclusion/Plan: RE Cause; Related to ETOH, already s/p cholecystectomy, doubt stump stone, no transaminase elevation dont suspect trauma, no culprit drugs, dont suspect TG or hypercalcemia Weakly meets critieria for Dx of pancreatitis; + imaging findings, negative lipase, Pain not quite consistent with pancreatitis, if anything epigastric it is mild pain in that locationn) -hemodynamically stable (Renal function normal, not significant volume depletion/No concerning hemoconcentration tachycardia develped after arrival to floor and suspect elevated heart rate more to ETOH withdrawal, -Continue IVF, increase to 125 -prn morphine (currently 2 mg IV q 30 prn =prn compazine NPO tonight likely clears tomorrow if no worse (3) Acute alcohol intoxication Conclusion/Plan: intoxicated AND already complaining of withdrawal CIWA, start w/ 1mg ativan and will eval if need to increase to 2 mg thiamine, MVI did not get banana bag in ED (got thiamine in ED getting NS now for pancreatitis (addendum; after speaking w/ , he was in ICU in past w/ severe withdrawal so will increase CIWA dose to 2 mg ativan and give BID 25 mg libirium) Qualifiers: Complication of substance-induced condition: uncomplicated Qualified Code( s): F10.920 - Alcohol use, unspecified with intoxication, uncomplicated (4) History of atrial fibrillation Conclusion/Plan: related to ETOH at the time (per patient) Bp did not tolerate BB Chads 0 not an issue at this time (5) Insomnia Conclusion/Plan: continue home quetiapine (6) Chronic low back pain Conclusion/Plan: from old ladder fall injury prn vicodin reconciled by pharmacy IF he requests will order, but may be discharging; getting benzos Awaiting med rec before adding other home meds; - Lab Results Fish Bones: 12/31/20 04:44 12/31/20 04:44 Other Lab Results: AST/ALT Alk phos 118 TBili 0.6 lipase 48 Alcohol level 281 - Diagnostic Imaging Results Diagnostic Imaging Results: positive: Final report reviewed (Impression; 1) inf lammatory change and fluid adjacent to head/uncinate process of pancreas w/ heterogeneous contrast parenchymal enhancement concening for actue pancreatitis; 2) sugggestion of infectious or inflammatory colitis involving ascending colon, transverse colon and proximal to mid descen) Diagnostic Imaging Results Comments: Impression; 1) inflammatory change and fluid adjacent to head/uncinate process of pancreas w/ heterogeneous contrast parenchymal enhancement concening for actue pancreatitis; 2) sugggestion of infectious or inflammatory colitis involving ascending colon, transverse colon and proximal to mid descending colon. No abscess. No free fluid or free air. Post surgical changes sigmoid colon. 3> Mild hepatic steatosis
[2020-12-30] MEDS ORDERED: SODIUM CHLORIDE 0.9% 1,000 ML IV SCH (18:00)
[2020-12-30] MEDS ORDERED: LORazepam 2 MG/ML VIAL IVP PRN (18:37)
[2020-12-30 18:42] LABS: B. PARAPERTUSSIS- RESP PCR PAN NOT DETECTED; B. PERTUSSIS- RESP PCR PANEL NOT DETECTED; C. PNEUMONIAE- RESP PCR PANEL NOT DETECTED; CORONAVIRUS 229E-RESP PCR NOT DETECTED; CORONAVIRUS HKU1-RESP PCR NOT DETECTED; CORONAVIRUS NL63-RESP PCR NOT DETECTED; CORONAVIRUS OC43-RESP PCR NOT DETECTED; HUMAN METAPNEUMOVIRUS NOT DETECTED; INFLUENZA A- RESP PCR PANEL NOT DETECTED; INFLUENZA B - RESP PCR PANEL NOT DETECTED; M. PNEUMONIAE- RESP PCR PANEL NOT DETECTED; PARAINFLUENZA VIRUS 1 NOT DETECTED; PARAINFLUENZA VIRUS 2 NOT DETECTED; PARAINFLUENZA VIRUS 3 NOT DETECTED; PARAINFLUENZA VIRUS 4 NOT DETECTED; RHINOVIRUS/ENTEROVIRUS NOT DETECTED; RSV- RESP PCR PANEL NOT DETECTED; SARS-CoV-2 -RESP PCR PANEL NOT DETECTED
[2020-12-30 18:59] LABS: BASOPHILS # (AUTO) 0.1 10^3/uL (0.0-0.1); EOSINOPHILS % (AUTO) 0.6 %; HCT - HEMATOCRIT 34.8 % (42.0-52.0); HGB - HEMOGLOBIN 11.5 g/dL (14.0-18.0); LYMPHOCYTES # (AUTO) 1.8 10^3/uL (1.5-3.5); LYMPHOCYTES % (AUTO) 37.3 %; MEAN CORPUSCULAR HEMOGLOBIN 31.8 pg (27.0-31.0); MEAN CORPUSCULAR VOLUME 96.1 fL (80.0-94.0); MEAN PLATELET VOLUME 8.7 fL (7.4-11.4); MONOCYTES # (AUTO) 0.3 10^3/uL (0.0-1.0); MONOCYTES % (AUTO) 5.7 %; NEUTROPHILS # (AUTO) 2.7 10^3/uL (1.5-6.6); PLT - PLATELET COUNT 223 10^3/uL (130-450); RED BLOOD COUNT 3.62 10^6/uL (4.70-6.10); RED CELL DISTRIBUTION WIDTH 15.9 % (12.0-15.0); WHITE BLOOD COUNT 4.9 x10^3/uL (4.8-10.8)
[2020-12-30 19:07] LABS: ALBUMIN 3.5 g/dL (3.2-5.5); ALBUMIN/GLOBULIN RATIO 0.9 (1.0-2.2); BILIRUBIN,TOTAL 0.4 mg/dL (0.2-1.0); CALCIUM 8.2 mg/dL (8.5-10.3); CREATININE 0.6 mg/dL (0.6-1.2); POTASSIUM 3.7 mmol/L (3.5-5.0); TOTAL PROTEIN 7.2 g/dL (6.7-8.2)
[2020-12-30] MEDS: SODIUM CHLORIDE 0.9% 1,000 ML IV SCH (20:53)
[2020-12-30] MEDS: chlordiazePOXIDE 25 MG CAPSULE PO SCH (20:55)
[2020-12-30] MEDS ORDERED: QUEtiapine 25 MG TABLET PO SCH (21:00)
[2020-12-31] MEDS: LORazepam 2 MG/ML VIAL IVP PRN ×4 (00:20→16:03)
[2020-12-31] MEDS: SODIUM CHLORIDE FLUSH 0.9% 10 ML SYRINGE IVP SCH ×3 (01:40→17:19)
[2020-12-31] MEDS: SODIUM CHLORIDE 0.9% 1,000 ML IV SCH ×2 (02:32→10:59)
[2020-12-31] MEDS: ONDANSETRON 4 MG/2 ML VIAL IVP PRN ×2 (04:50→15:49)
[2020-12-31 05:17] LABS: BASOPHILS # (AUTO) 0.1 10^3/uL (0.0-0.1); BASOPHILS % (AUTO) 1.1 %; EOSINOPHILS # (AUTO) 0.1 10^3/uL (0.0-0.7); EOSINOPHILS % (AUTO) 1.3 %; HCT - HEMATOCRIT 32.2 % (42.0-52.0); HGB - HEMOGLOBIN 10.6 g/dL (14.0-18.0); LYMPHOCYTES # (AUTO) 1.9 10^3/uL (1.5-3.5); LYMPHOCYTES % (AUTO) 35.7 %; MEAN CORPUSCULAR HGB CONC 32.9 g/dL (32.0-36.0); MEAN CORPUSCULAR VOLUME 97.3 fL (80.0-94.0); MEAN PLATELET VOLUME 9.1 fL (7.4-11.4); MONOCYTES # (AUTO) 0.4 10^3/uL (0.0-1.0); MONOCYTES % (AUTO) 6.8 %; NEUTROPHILS # (AUTO) 2.9 10^3/uL (1.5-6.6); NEUTROPHILS % (AUTO) 54.9 %; PLT - PLATELET COUNT 181 10^3/uL (130-450); RED BLOOD COUNT 3.31 10^6/uL (4.70-6.10); WHITE BLOOD COUNT 5.3 x10^3/uL (4.8-10.8)
[2020-12-31 05:30] LABS: ALBUMIN 3.2 g/dL (3.2-5.5); BILIRUBIN,TOTAL 1.1 mg/dL (0.2-1.0); CREATININE 0.7 mg/dL (0.6-1.2); POTASSIUM 3.7 mmol/L (3.5-5.0); TOTAL PROTEIN 6.3 g/dL (6.7-8.2)
[2020-12-31] MEDS: MORPHINE 2 MG/ML CARPUJECT IVP PRN ×2 (06:04→09:24)
[2020-12-31] MEDS: chlordiazePOXIDE 25 MG CAPSULE PO SCH (08:36)
[2020-12-31] MEDS ORDERED: PRENATAL VITAMIN TABLET PO SCH (09:00)
[2020-12-31] MEDS ORDERED: ENOXAPARIN 40 MG/0.4 ML SYRINGE SUBQ SCH (09:00)
[2020-12-31] MEDS ORDERED: THIAMINE 100 MG TABLET PO SCH (09:00)
--- NOTE | 2020-12-31 10:17 | PHARMACY PROGRESS NOTE ---
- Best Possible Medication History Admit Date and Time: 12/30/20 1710 Processed by: Pharmacy Medication History completed: Yes Patient Interview: Completed (PATIENT ABLE TO CONFIRM HOME MEDICATIONS) As the person ultimately responsible for medication therapy, providers are able to order a medication from an existing home medication list in [facility] via the "Reconcile Routine" prior to Confirmation of that medication by business support liaison. Such practice is discouraged except when the physician, in their clinical judgment, deems that a medical need exists for a medication without regard to previous use.
--- NOTE | 2020-12-31 12:19 | DISCHARGE SUMMARY ---
Discharge Summary Admit Date: 12/30/20 Discharge Date: 12/31/20 Discharging Provider: Jane Mendez Primary Care Provider: Dr Hany Oro, Code Status: Attempt Resuscitation Condition at Discharge: Good Discharge Disposition: 01 Home, Self Care Discharge Facility [facility]: [facility] - DIAGNOSES Admission Diagnoses: Colitis Pancreatitis , acute Acute alcohol intoxication Alcohol Withdrawal Insomnia History of atrial fibrillation Discharge Diagnoses with Status of Each Condition: Colitis; mild; FORMED stool in hospital, hemocult negative Pancreatitis ,mild no lipase elevation, only lower abdominal pain unless deeply palpated, no WBC, no fever, no hemoconcentration, tolerating PO Day 2 Acute alcohol intoxication ; improving Alcohol Withdrawal; improving, no DT's Insomnia; chronic History of atrial fibrillation stable - HPI History of Present Illness: 55 year old man presented to ED with abdominal pain. He reported having been sober x 8 mos and just started drinking ~ 6 days ago. He told the ED provider he started drinking because he was having lower abdominal pain. He first informed me that he started drinking because his brother in law (not clear when), He denies epigasttric pain . He developed diarrhea and vomiting and hardly keeping food down. No appetite. Had ~ 6 beers today. Emesis is mostly bile. he reports diarrhea is mostly in the morning, "like the vomit", not volumous, no tenesmus, no blood. As I am trying to get the history clear, he says , (still w/ ETOH level of 281), I'm really anxious because I'm withdrawing. He then indicates that he was already having withdrwal symptoms ~ a week ago because he "tried to cut down on his own" (meaning clearly he was drinking before last week. He also indicates he went to detox this morning but they sent him to (?) Later I spoke w/ his wifeBing [phone] and in speaking with her, it is unfortunately clear that he is fabricating much of his history; She notes no one has , hewas hiding his drinking but she realized when he went to [place] a few weeks ago he had been drinking, his affect changed, angry etc. He did at some point tell her his bowel movements had some blood but not clear when and she has not seen this. He indicated he went out today to get shaving cream and came back with a bottle of whiskey (he told me he had 6 beers today; ). She actually called the police because of his affect (not violence). They suggested he go to detox (new detox facility in [place]; ) ; he did follow thru and take self to detox center; he indicated to them that he was having abdominal pain, and evidently they recommmended he present to hospital (that part sounds to be truthful/accurate). also notes he has been in ICU for withdrawal in past ; He indicates his ONLY medication is quetiapine at hs 50 mg; will wait for pharmacy to do med rec before ordering vicodin or acyclovir or flexril on med list Not Covid vaccinated, reports always wearing mask, not out with people. is vaccinated - HOSPITAL COURSE Hospital Course: (1) Colitis suggested on CT imaging; likely related to heavy alcohol intake GI inflamation no associated fever , leukocytosis or bloody diarrhea to suggest Cdif Had formed stool hemocult neg No management needed inpatient (Since he reported signifiant diarrhea and blood in your stool, he was admitted for IVF and evaluation of the diarrhea He had formed heme negative stool when in the hospital /his abdominal pain and reported diarrhea were likely related to heavy alcohol intake He tolerated diet advance and was discharged (see below) (2) Pancreatitis, acute initially symptoms reported to ED deemed likely pancreatitis related to ETOH, already s/p cholecystectomy, Relatively mild pancreatitis,(his pain seems more r/t colitis, only is epigastric w/ palpation) + corresponding CT finding hemodynamically stable (Renal function normal, not significant volume depletion/No concerning hemoconcentration tachycardia develped after arrival to floor and suspect more to withdrawal, lipase normal He was initially managed conservatively w/ NPO, volume repletion, analgesic Patients labs, exam did not match his history which he kept changing; reports his self reported history is false The next day he was tolerating PO, reports of hematochezia not supported by solid stool, heme negative (though he likely has mild inflamed bowel from heavy ETOHHe had no fever, had no elevated white count, and was not dehydrated on exam or on labs. There was no anemia (3) Acute alcohol intoxication treated for acute alcohol intoxication w/ banana bag, mvi, supportive care monitored on CIWA protocol community organization worker contacted the detox center in [place], He however declined discharge to the detox center even though he was medically cleared He was discharged home with Rx for 3 (three) 25 mg librium tabs to be taken every 8 hours until he takes self to the detox center the next day (he was advised to go straight there). Social work arranged for transport back home. Advised; DO NOT TAKE YOUR VICODIN or FLEXERIL with the librium. (#) Insomnia continue home quetiapine (#) Chronic low back pain continues home prn vicodin; advised not to take w/ the d/c librium dose - ALLERGIES Allergies/Adverse Reactions: Allergies Allergy/AdvReac Type Severity Reaction Status Date / Time buspirone [From BuSpar] Allergy Unknown Verified 12/30/20 15:28 pregabalin [From Lyrica] Allergy Unknown Verified 12/30/20 15:28 Penicillins AdvReac Unknown Rash Verified 12/30/20 15:28 - MEDICATIONS Home Medications: Ambulatory Orders Medication Instructions Recorded Confirmed Hydrocodone/Acetaminophen 1 tab PO QID PRN 06/11/19 12/31/20 [Hydrocodone-Acetamin 5-325 mg] Cyclobenzaprine [Flexeril] 10 mg PO TID PRN #20 tablet 10/02/19 12/31/20 Omeprazole Magnesium 20 mg PO DAILY 12/30/20 12/31/20 Quetiapine Fumarate [Seroquel] 50 mg PO QPM 12/31/20 12/31/20 Thiamine [Vitamin B-1] 100 mg PO DAILY #30 tablet 12/31/20 chlordiazePOXIDE [Librium] 25 mg PO Q8H #3 12/31/20 - PHYSICAL EXAM AT DISCHARGE General Appearance: positive: No acute distress, Other Eyes Bilateral: positive: Normal inspection, No scleral icterus Respiratory: positive: No respiratory distress, Breath sounds nml Cardiovascular: positive: Regular rate & rhythm, No murmur, Other (not tachycardic) Abdomen: positive: No organomegaly, Nml bowel sounds (present but hypoactive, nondistended, no epigastric tenderness, + formed stool seen by me,, mild lower quadrant pain on palpation ), No distention. negative: Guarding, Rebound Skin: positive: Warm, Dry. negative: Diaphoresis Extremities: negative: Pedal edema Neurologic/Psychiatric: positive: Oriented x3, Motor nml, Sensation nml - LABS Result Diagrams: 12/31/20 04:44 12/31/20 04:44 - TIME SPENT Time Spent in Discharge (Minutes): 35 (over 30 minutes reevaluating pt thru day, discussing plan w / patient and social work)
--- NOTE | 2020-12-31 12:26 | Discharge Plan ---
Discharge Plan Problem Reviewed?: Yes Disposition: Home, Self Care Condition: Good Prescriptions: chlordiazePOXIDE [Librium] 25 mg PO Q8H #3 Diet: Regular (Low fat diet, NO alcohol) Activity Restrictions: No Restrictions Shower Restrictions: No Driving Restrictions: Yes (NO driving if drinking) Health Concerns: Alcohol Intoxication and withdrawal; You came to [facility] with abdominal pain, reports of significant nausea/vomiting and diarrhea and recent resumption of heavy drinking after a long time sober. You later clarified that you started drinking again several weeks ago and more heavily in the last ~ week after learning of a family member's illness. When you came to the hospital your Vital signs (temperature, heart rate, and blood pressure were stable though your initial Heart rate was modestly elevated at 97 . You had a blood alcool level of 280 but were already feeling symptoms of withdrawal You noted lower abdominal pain and no significant mid upper abdomen pain (epigastric); CT abdomen was suggestive of pancreatitis though your labs were normal and not suggestive of pancreatitis There were findings of inflamed colon (colitis) You had no fever, you had no elevated white count, you were not dehydrated on exam or on labs. There was no anemia Since you reported signifiant diarrhea and blood in your stool, you were admitted for IVF and evaluation of the diarrhea You had formed stool when in the hospital so the abdominal pain and reported diarrhea were likely related to heavy alcohol intake You tolerated diet advance. For alcohol withdrawal; CIWA protocol was started at hospital since you had symptoms of withdrawal dope maintenance worker contacted the detox center in [place], You however declined discharge to the detox center even though you were medically cleared You are discharged home with Rx for 3 (three) 25 mg librium tabs to be taken every 8 hours unit you take yourself to the detox center. Social work arranged for transport back home. You will get a dose of librium at the time of discharge. Take the first prescribed dose late before bed on 12/31 Keep your self hydrated with nonalcoholic beverages DO NOT TAKE YOUR VICODIN or FLEXERIL with the librium. No Smoking: If you smoke, Please STOP! Call for help. Follow-up with: Hany Oro MD [Primary Care Provider] -
--- NOTE | 2020-12-31 12:58 | PROVIDER PROGRESS NOTE ---
Subjective - Prog Note Date Prog Note Date: 12/31/20 Prog Note Time: 12:56 (seen several x since ~ 1030am) - Subjective Pt reports feeling: Improved (RE: report of family precipitating ETOH intake; he clarifies; ill family member;feels alittle better than 12/30, no emesis. At 1p; tolerating clears w/ no pain but a little nauseated, likes the saltines No diarrhea overnight; had a small formed stool/ seen by me, no ayaan blood , not black) Current Medications - Current Medications Current Medications: Active Medications Generic Name Dose Route Start Last Admin Trade Name Freq PRN Reason Stop Dose Admin Chlordiazepoxide HCl 25 mg 12/30/20 21:00 12/31/20 08:36 Chlordiazepoxide 25 Mg Capsule PO 25 mg BID DESMOND Administration Enoxaparin Sodium 40 mg 12/31/20 09:00 12/31/20 08:36 Enoxaparin 40 Mg/0.4 Ml Syringe SUBQ 40 mg DAILY DESMOND Administration Sodium Chloride 1,000 mls @ 125 mls/hr 12/30/20 19:05 12/31/20 10:59 Normal Saline 0.9% IV 125 mls/hr .Q8H DESMOND Administration Lorazepam 2 mg 12/30/20 19:26 12/31/20 09:25 Lorazepam 2 Mg/Ml Vial IVP 2 mg Q30M PRN Administration CIWA >8 Protocol Morphine Sulfate 2 mg 12/30/20 17:10 12/31/20 09:24 Morphine 2 Mg/Ml Carpuject IVP 2 mg Q2HR PRN Administration Pain 8 to 10 Ondansetron HCl 4 mg 12/30/20 17:10 Ondansetron Odt 4 Mg Tablet TL Q6HR PRN Nausea / Vomiting Ondansetron HCl 4 mg 12/30/20 17:10 12/31/20 04:50 Ondansetron 4 Mg/2 Ml Vial IVP 4 mg Q6HR PRN Administration Nausea / Vomiting Multivit/Folic Acid/Iron 1 tab 12/31/20 09:00 12/31/20 08:36 Vitamin Tablet PO 1 tab DAILY DESMOND Administration Prochlorperazine Edisylate 10 mg 12/30/20 17:10 Prochlorperazine 10 Mg/2 Ml Vial IVP Q6HR PRN Nausea / Vomiting Quetiapine Fumarate 50 mg 12/30/20 21:00 12/30/20 20:55 Quetiapine 25 Mg Tablet PO 50 mg QPM DESMOND Administration Sodium Chloride 10 ml 12/30/20 17:10 Sodium Chloride Flush 0.9% 10 Ml Syringe IVP PRN PRN NEEDED PER PROVIDER ORDERS Sodium Chloride 10 ml 12/31/20 01:00 12/31/20 08:36 Sodium Chloride Flush 0.9% 10 Ml Syringe IVP 10 ml 0100,0900,1700 DESMOND Administration Thiamine HCl 100 mg 12/31/20 09:00 12/31/20 08:36 Thiamine 100 Mg Tablet PO 100 mg DAILY DESMOND Administration Hydrocodone/Acetaminophen [Hydrocodone-Acetamin 5-325 mg] 1 tab PO QID PRN 06/11/19 Omeprazole Magnesium 20 mg PO DAILY 12/30/20 Quetiapine Fumarate [Seroquel] 50 mg PO QPM 12/31/20 Objective - Vital Signs/Intake & Output Reviewed Vital Signs: Yes Vital Signs: Vital Signs x48h Temp Pulse Resp BP Pulse Ox 12/31/20 11:54 36.8 C 91 18 138/85 H 100 12/31/20 09:00 36.5 C 86 16 132/76 H 100 Intake & Output: Intake & Output 12/28/20 12/29/20 12/30/20 12/31/20 23:59 23:59 23:59 23:59 Intake Total 3222.942 7855.667 Output Total 250 250 Balance 4683.506 4783.667 - Objective General Appearance: positive: No acute distress, Alert, Mild distress, Other (no acute distress, nontoxic but looks kind of miserable. flat affect but pleaseant , cooperative) Respiratory: positive: Chest non-tender, No respiratory distress, Breath sounds nml Cardiovascular: positive: Regular rate & rhythm (not tachycardic) Abdomen: positive: Nml bowel sounds (slightly hypoactive but present. no epigastric discomfort unless firmly palpated (more upper quad than epigastrium), no guarding (he palpates himself to find if tender) Skin: positive: Warm, Dry. negative: Diaphoresis Extremities: negative: Pedal edema Neurologic/Psychiatric: positive: Oriented x3. negative: Mood/affect nml (slightly flat affect, but cooperative and pleasant. Very mild tremor) - Lab Results Fish Bones: 12/31/20 04:44 12/31/20 04:44 Other Labs: Lab Results x24hrs 12/31/20 12/31/20 12/30/20 Range/Units 04:44 04:44 18:49 WBC 5.3 (4.8-10.8) x10^3/uL RBC 3.31 L (4.70-6.10) 10^6/uL Hgb 10.6 L (14.0-18.0) g/dL Hct 32.2 L (42.0-52.0) % MCV 97.3 H (80.0-94.0) fL MCH 32.0 H (27.0-31.0) pg MCHC 32.9 (32.0-36.0) g/dL RDW 16.0 H (12.0-15.0) % Plt Count 181 (130-450) 10^3/uL MPV 9.1 (7.4-11.4) fL Neut # (Auto) 2.9 (1.5-6.6) 10^3/uL Lymph # (Auto) 1.9 (1.5-3.5) 10^3/uL [place] # (Auto) 0.4 (0.0-1.0) 10^3/uL Eos # (Auto) 0.1 (0.0-0.7) 10^3/uL Baso # (Auto) 0.1 (0.0-0.1) 10^3/uL Absolute Nucleated RBC 0.00 x10^3/uL Nucleated RBC % 0.0 /100WBC Sodium 142 139 (135-145) mmol/L Potassium 3.7 3.7 (3.5-5.0) mmol/L Chloride 106 104 (101-111) mmol/L Carbon Dioxide 23 23 (21-32) mmol/L Anion Gap 13.0 12.0 (6-13) BUN 8 6 (6-20) mg/dL Creatinine 0.7 0.6 (0.6-1.2) mg/dL Estimated GFR (MDRD) 117 139 (>89) Glucose 73 99 (70-100) mg/dL Calcium 8.0 L 8.2 L (8.5-10.3) mg/dL Total Bilirubin 1.1 H 0.4 (0.2-1.0) mg/dL AST 23 25 (10-42) IU/L ALT 11 10 (10-60) IU/L Alkaline Phosphatase 97 111 (42-121) IU/L Total Protein 6.3 L 7.2 (6.7-8.2) g/dL Albumin 3.2 3.5 (3.2-5.5) g/dL Globulin 3.1 3.7 (2.1-4.2) g/dL Albumin/Globulin Ratio 1.0 0.9 L (1.0-2.2) Lipase (22-51) U/L Nasal Adenovirus (PCR) Nasal B. parapertussis DNA (PCR) Nasal Coronavir 229E PCR Nasal Coronavir HKU1 PCR Nasal Coronavir NL63 PCR Nasal Coronavir OC43 PCR Nasal Enterovir/Rhinovir PCR Nasal Influenza B PCR Nasal Influenza A PCR Nasal Parainfluen 1 PCR Nasal Parainfluen 2 PCR Nasal Parainfluen 3 PCR Nasal Parainfluen 4 PCR Nasal RSV (PCR) Nasal B.pertussis DNA PCR Nasal C.pneumoniae (PCR) Rajiv Human Metapneumo PCR Nasal M.pneumoniae (PCR) Nasal SARS-CoV-2 (PCR) Ethyl Alcohol mg/dL 12/30/20 12/30/20 12/30/20 Range/Units 18:49 17:30 15:31 WBC 4.9 (4.8-10.8) x10^3/uL RBC 3.62 L (4.70-6.10) 10^6/uL Hgb 11.5 L (14.0-18.0) g/dL Hct 34.8 L (42.0-52.0) % MCV 96.1 H (80.0-94.0) fL MCH 31.8 H (27.0-31.0) pg MCHC 33.0 (32.0-36.0) g/dL RDW 15.9 H (12.0-15.0) % Plt Count 223 (130-450) 10^3/uL MPV 8.7 (7.4-11.4) fL Neut # (Auto) 2.7 (1.5-6.6) 10^3/uL Lymph # (Auto) 1.8 (1.5-3.5) 10^3/uL [place] # (Auto) 0.3 (0.0-1.0) 10^3/uL Eos # (Auto) 0.0 (0.0-0.7) 10^3/uL Baso # (Auto) 0.1 (0.0-0.1) 10^3/uL Absolute Nucleated RBC 0.00 x10^3/uL Nucleated RBC % 0.0 /100WBC Sodium 141 (135-145) mmol/L Potassium 3.9 (3.5-5.0) mmol/L Chloride 101 (101-111) mmol/L Carbon Dioxide 24 (21-32) mmol/L Anion Gap 16.0 H (6-13) BUN 7 (6-20) mg/dL Creatinine 0.7 (0.6-1.2) mg/dL Estimated GFR (MDRD) 117 (>89) Glucose 102 H (70-100) mg/dL Calcium 8.9 (8.5-10.3) mg/dL Total Bilirubin 0.6 (0.2-1.0) mg/dL AST 25 (10-42) IU/L ALT 13 (10-60) IU/L Alkaline Phosphatase 118 (42-121) IU/L Total Protein 7.8 (6.7-8.2) g/dL Albumin 3.9 (3.2-5.5) g/dL Globulin 3.9 (2.1-4.2) g/dL Albumin/Globulin Ratio 1.0 (1.0-2.2) Lipase 48 (22-51) U/L Nasal Adenovirus (PCR) NOT DETECTED Nasal B. parapertussis DNA (PCR) NOT DETECTED Nasal Coronavir 229E PCR NOT DETECTED Nasal Coronavir HKU1 PCR NOT DETECTED Nasal Coronavir NL63 PCR NOT DETECTED Nasal Coronavir OC43 PCR NOT DETECTED Nasal Enterovir/Rhinovir PCR NOT DETECTED Nasal Influenza B PCR NOT DETECTED Nasal Influenza A PCR NOT DETECTED Nasal Parainfluen 1 PCR NOT DETECTED Nasal Parainfluen 2 PCR NOT DETECTED Nasal Parainfluen 3 PCR NOT DETECTED Nasal Parainfluen 4 PCR NOT DETECTED Nasal RSV (PCR) NOT DETECTED Nasal B.pertussis DNA PCR NOT DETECTED Nasal C.pneumoniae (PCR) NOT DETECTED Rajiv Human Metapneumo PCR NOT DETECTED Nasal M.pneumoniae (PCR) NOT DETECTED Nasal SARS-CoV-2 (PCR) NOT DETECTED Ethyl Alcohol 281.7 mg/dL 12/30/20 Range/Units 15:31 WBC 4.1 L (4.8-10.8) x10^3/uL RBC 3.82 L (4.70-6.10) 10^6/uL Hgb 12.4 L (14.0-18.0) g/dL Hct 36.7 L (42.0-52.0) % MCV 96.1 H (80.0-94.0) fL MCH 32.5 H (27.0-31.0) pg MCHC 33.8 (32.0-36.0) g/dL RDW 15.9 H (12.0-15.0) % Plt Count 228 (130-450) 10^3/uL MPV 8.6 (7.4-11.4) fL Neut # (Auto) 2.3 (1.5-6.6) 10^3/uL Lymph # (Auto) 1.5 (1.5-3.5) 10^3/uL [place] # (Auto) 0.3 (0.0-1.0) 10^3/uL Eos # (Auto) 0.0 (0.0-0.7) 10^3/uL Baso # (Auto) 0.1 (0.0-0.1) 10^3/uL Absolute Nucleated RBC 0.00 x10^3/uL Nucleated RBC % 0.0 /100WBC Sodium (135-145) mmol/L Potassium (3.5-5.0) mmol/L Chloride (101-111) mmol/L Carbon Dioxide (21-32) mmol/L Anion Gap (6-13) BUN (6-20) mg/dL Creatinine (0.6-1.2) mg/dL Estimated GFR (MDRD) (>89) Glucose (70-100) mg/dL Calcium (8.5-10.3) mg/dL Total Bilirubin (0.2-1.0) mg/dL AST (10-42) IU/L ALT (10-60) IU/L Alkaline Phosphatase (42-121) IU/L Total Protein (6.7-8.2) g/dL Albumin (3.2-5.5) g/dL Globulin (2.1-4.2) g/dL Albumin/Globulin Ratio (1.0-2.2) Lipase (22-51) U/L Nasal Adenovirus (PCR) Nasal B. parapertussis DNA (PCR) Nasal Coronavir 229E PCR Nasal Coronavir HKU1 PCR Nasal Coronavir NL63 PCR Nasal Coronavir OC43 PCR Nasal Enterovir/Rhinovir PCR Nasal Influenza B PCR Nasal Influenza A PCR Nasal Parainfluen 1 PCR Nasal Parainfluen 2 PCR Nasal Parainfluen 3 PCR Nasal Parainfluen 4 PCR Nasal RSV (PCR) Nasal B.pertussis DNA PCR Nasal C.pneumoniae (PCR) Rajiv Human Metapneumo PCR Nasal M.pneumoniae (PCR) Nasal SARS-CoV-2 (PCR) Ethyl Alcohol mg/dL Assessment/Plan - Problem List (1) Colitis Impression: See d/c plan and d/c summary from today (1) Colitis (on CT) no associated fever , leukocytosis or bloody diarrhea, no anemia, (labs not hemoconcentrated) to suggest Cdif Reported diarrhea has not materialized / formed stool noted as per above/hemocult negative Stop order for Cdif/ stop contact precautions I suspect the mild colitis is related to heavy ETOH intake/ can have colitis w/ heavy ETOH intake; as above having formed stool (2) Pancreatitis, acute/ consistent with pancretitis Conclusion/Plan: Rereview of his pain He does not have 2 of 3 criteria for pancreatitis; (+ CT only neg lipase, neg epigastric pain; his pain location lower abdomen doesnt really correspond (3) Acute alcohol intoxication withdrawal well controlled overnight Exploring option to d/c to detox see d/c summary (5) Insomnia Conclusion/Plan: continue home quetiapine (6) Chronic low back pain Conclusion/Plan: from old ladder fall injury prn vicodin reconciled by pharmacy IF he requests will order, but may be discharging; getting benzos so prefer to avoid unless significant pain (3) Acute alcohol intoxication Qualifiers: Complication of substance-induced condition: uncomplicated Qualified Code(s ): F10.920 - Alcohol use, unspecified with intoxication, uncomplicated
[2020-12-31] MEDS ORDERED: chlordiazePOXIDE 25 MG CAPSULE PO ONE (17:30)
[2020-12-31 17:49] VITALS: BP 158/89
[2021-01-01] MEDS ORDERED: PANTOPRAZOLE 40 MG TABLET PO SCH (07:00)
== END 2020-12-31 17:45 | disposition home or self-care (01) ==
LOC: EDUNIT# → ED 15:11 → MS2 17:10
PROVIDERS: ADMIT Nurse Practitioner; ATTEND Nurse Practitioner
DX: K52.9 Noninfective gastroenteritis and colitis, unspecified (principal); K85.20 Alcohol induced acute pancreatitis without necrosis or infection; K92.0 Hematemesis; F10.229 Alcohol dependence with intoxication, unspecified; F10.239 Alcohol dependence with withdrawal, unspecified; Y90.8 Blood alcohol level of 240 mg/100 ml or more; G47.00 Insomnia, unspecified; M54.5 Low back pain; G89.29 Other chronic pain; I48.91 Unspecified atrial fibrillation; Z90.49 Acquired absence of other specified parts of digestive tract
CPT/HCPCS: 36415; 74177; 80053; 82272; 83690; 85025; 87631; 96365; 96366; 96372; 96375; 96376; 99285; A9270; G0378; G0480; J1170; J1650; J2060; J3411; J7040; Q9967; 0202U; 80320

== ENCOUNTER 2021-02-08 14:00 | Emergency (ER) | payer MEDICARE, MEDICAID ==
[2021-02-08] MEDS ORDERED: SODIUM CHLORIDE 0.9% 1,000 ML IV STA (14:18)
[2021-02-08] MEDS ORDERED: PROMETHAZINE INJ 25 MG in SODIUM CHLORIDE 0.9% 50 ML IV STA (14:18)
[2021-02-08] MEDS ORDERED: PANTOPRAZOLE 40 MG VIAL IVP STA (14:18)
[2021-02-08] MEDS ORDERED: NALBUPHINE 10 MG/ML AMP IVP STA (14:22)
--- NOTE | 2021-02-08 14:22 | ED Physician Documentation ---
PD HPI ABD PAIN - Stated complaint Stated Complaint: VOMITING - Chief complaint Chief Complaint: Abd Pain - History obtained from History obtained from: Patient - History of Present Illness Timing - onset: How many days ago (2-3) Timing - duration: Days Timing - details: Gradual onset Pain level max: 8 Pain level now: 8 Quality: Cramping, Aching, Sharp Location: All over / everywhere Associated symptoms: Nausea, Vomiting. No: Fever, Hematemesis, Diarrhea, Constipation, Melena, Hematochezia, Dysuria, Hematuria, Chest pain - Additional information Additional information: 55-year-old male, history of chronic alcoholism presents to the emergency department complaint of abdominal pain and vomiting today. Worse with eating and drinking. Nothing makes it better. He states that he has a bed at detox today, but wanted to address his abdominal pain and vomiting first. No fevers. No chills. Has not received his Covid vaccination. Does not have any known Covid exposures. Review of Systems Constitutional: denies: Fever, Chills Respiratory: denies: Cough GI: denies: Nausea, Vomiting, Diarrhea Skin: denies: Rash Musculoskeletal: denies: Neck pain, Back pain Neurologic: denies: Headache PD PAST MEDICAL HISTORY - Past Medical History Cardiovascular: None, Atrial fibrillation Respiratory: None Neuro: None Endocrine/Autoimmune: None GI: GERD, Pancreatitis, Other : None HEENT: None Psych: Anxiety, Other Musculoskeletal: Chronic back pain Derm: None - Past Surgical History Past Surgical History: Yes General: Cholecystectomy, Colonoscopy, Other Ortho: Rotator cuff repair HEENT: Other - Present Medications Home Medications: Ambulatory Orders Medication Instructions Recorded Confirmed Hydrocodone/Acetaminophen 1 tab PO QID PRN 06/11/19 01/20/21 [Hydrocodone-Acetamin 5-325 mg] Cyclobenzaprine [Flexeril] 10 mg PO TID PRN #20 tablet 10/02/19 01/20/21 Omeprazole Magnesium 20 mg PO DAILY 12/30/20 01/20/21 Quetiapine Fumarate [Seroquel] 50 mg PO QPM 12/31/20 01/20/21 Thiamine [Vitamin B-1] 100 mg PO DAILY #30 tablet 12/31/20 01/20/21 chlordiazePOXIDE [Librium] 25 mg PO Q8H #3 12/31/20 01/20/21 - Allergies Allergies/Adverse Reactions: Allergies Allergy/AdvReac Type Severity Reaction Status Date / Time buspirone [From BuSpar] Allergy Unknown Verified 02/08/21 14:04 pregabalin [From Lyrica] Allergy Unknown Verified 02/08/21 14:04 Penicillins AdvReac Unknown Rash Verified 02/08/21 14:04 - Social History Does the pt smoke?: Yes Smoking Status: Current every day smoker Does the pt drink ETOH?: Yes Does the pt have substance abuse?: No - Immunizations Immunizations are current?: Yes - POLST Patient has POLST: No POLST Status: Full Code PD ED PE NORMAL - Vitals Vital signs reviewed: Yes - General General: Alert and oriented X 3, No acute distress - HEENT HEENT: Moist mucous membranes - Neck Neck: Supple, no meningeal sign - Cardiac Cardiac: RRR - Respiratory Respiratory: No respiratory distress, Clear bilaterally - Abdomen Abdomen: Soft, Other (diffusely tender to palpation. no peritoneal signs. ) - Derm Derm: Warm and dry - Extremities Extremities: No edema - Neuro Neuro: Alert and oriented X 3 - Psych Psych: Normal mood, Normal affect Results - Vitals Vitals: Vital Signs - 24 hr 02/08/21 02/08/21 14:04 15:25 Temperature 36.5 C Heart Rate 78 84 Respiratory 16 16 Rate Blood Pressure 130/74 146/99 H O2 Saturation 97 99 Oxygen O2 Source Room air - Labs Labs: Laboratory Tests 02/08/21 02/08/21 02/08/21 14:15 14:15 14:15 WBC 4.6 L RBC 4.16 L Hgb 13.5 L Hct 40.2 L MCV 96.6 H MCH 32.5 H MCHC 33.6 RDW 13.4 Plt Count 242 MPV 8.8 Neut # (Auto) 3.2 Lymph # (Auto) 1.0 L [place] # (Auto) 0.3 Eos # (Auto) 0.0 Baso # (Auto) 0.1 Absolute Nucleated RBC 0.00 Nucleated RBC % 0.0 Sodium 137 Potassium 3.4 L Chloride 92 L Carbon Dioxide 27 Anion Gap 18.0 H BUN 8 Creatinine 0.6 Estimated GFR (MDRD) 139 Glucose 119 H Calcium 9.0 Total Bilirubin 0.4 AST 36 ALT 18 Alkaline Phosphatase 79 Total Protein 7.6 Albumin 4.7 Globulin 2.9 Albumin/Globulin Ratio 1.6 Lipase 30 TSH 1.43 Urine Color Urine Clarity Urine pH Ur Specific [place] Urine Protein Urine Glucose (UA) Urine Ketones Urine Occult Blood Urine Nitrite Urine Bilirubin Urine Urobilinogen Ur Leukocyte Esterase Ur Microscopic Review Urine Culture Comments Nasal Adenovirus (PCR) Nasal B. parapertussis DNA (PCR) Nasal Coronavir 229E PCR Nasal Coronavir HKU1 PCR Nasal Coronavir NL63 PCR Nasal Coronavir OC43 PCR Nasal Enterovir/Rhinovir PCR Nasal Influenza B PCR Nasal Influenza A PCR Nasal Parainfluen 1 PCR Nasal Parainfluen 2 PCR Nasal Parainfluen 3 PCR Nasal Parainfluen 4 PCR Nasal RSV (PCR) Nasal B.pertussis DNA PCR Nasal C.pneumoniae (PCR) Rajiv Human Metapneumo PCR Nasal M.pneumoniae (PCR) Nasal SARS-CoV-2 (PCR) Salicylates < 6.0 Urine Opiates Screen Ur Oxycodone Screen Urine Methadone Screen Ur Propoxyphene Screen Acetaminophen < 10 L Ur Barbiturates Screen Ur Tricyclics Screen Ur Phencyclidine Scrn Ur Amphetamine Screen U Methamphetamines Scrn U Benzodiazepines Scrn Urine Cocaine Screen U Cannabinoids Screen Ethyl Alcohol 255.3 02/08/21 02/08/21 14:15 15:04 WBC RBC Hgb Hct MCV MCH MCHC RDW Plt Count MPV Neut # (Auto) Lymph # (Auto) [place] # (Auto) Eos # (Auto) Baso # (Auto) Absolute Nucleated RBC Nucleated RBC % Sodium Potassium Chloride Carbon Dioxide Anion Gap BUN Creatinine Estimated GFR (MDRD) Glucose Calcium Total Bilirubin AST ALT Alkaline Phosphatase Total Protein Albumin Globulin Albumin/Globulin Ratio Lipase TSH Urine Color YELLOW Urine Clarity CLEAR Urine pH 6.5 Ur Specific [place] 1.020 Urine Protein NEGATIVE Urine Glucose (UA) NEGATIVE Urine Ketones 15 H Urine Occult Blood NEGATIVE Urine Nitrite NEGATIVE Urine Bilirubin NEGATIVE Urine Urobilinogen 0.2 (NORMAL) Ur Leukocyte Esterase NEGATIVE Ur Microscopic Review NOT INDICATED Urine Culture Comments NOT INDICATED Nasal Adenovirus (PCR) NOT DETECTED Nasal B. parapertussis DNA (PCR) NOT DETECTED Nasal Coronavir 229E PCR NOT DETECTED Nasal Coronavir HKU1 PCR NOT DETECTED Nasal Coronavir NL63 PCR NOT DETECTED Nasal Coronavir OC43 PCR NOT DETECTED Nasal Enterovir/Rhinovir PCR NOT DETECTED Nasal Influenza B PCR NOT DETECTED Nasal Influenza A PCR NOT DETECTED Nasal Parainfluen 1 PCR NOT DETECTED Nasal Parainfluen 2 PCR NOT DETECTED Nasal Parainfluen 3 PCR NOT DETECTED Nasal Parainfluen 4 PCR NOT DETECTED Nasal RSV (PCR) NOT DETECTED Nasal B.pertussis DNA PCR NOT DETECTED Nasal C.pneumoniae (PCR) NOT DETECTED Rajiv Human Metapneumo PCR NOT DETECTED Nasal M.pneumoniae (PCR) NOT DETECTED Nasal SARS-CoV-2 (PCR) NOT DETECTED Salicylates Urine Opiates Screen POSITIVE H Ur Oxycodone Screen NEGATIVE Urine Methadone Screen NEGATIVE Ur Propoxyphene Screen NEGATIVE Acetaminophen Ur Barbiturates Screen NEGATIVE Ur Tricyclics Screen NEGATIVE Ur Phencyclidine Scrn NEGATIVE Ur Amphetamine Screen NEGATIVE U Methamphetamines Scrn NEGATIVE U Benzodiazepines Scrn POSITIVE H Urine Cocaine Screen NEGATIVE U Cannabinoids Screen NEGATIVE Ethyl Alcohol - Rads (name of study) CT abdomen pelvis Radiology: Final report received, EMP read contemporaneously, See rad report (No acute abnormality) PD MEDICAL DECISION MAKING - ED course Complexity details: reviewed results, re-evaluated patient, considered differential, d/w patient ED course: Patient is a 55-year-old male, chronic alcoholism with vomiting and abdominal pain. No vomiting here. Abdominal pain resolved. CT and laboratory testing are without acute abnormality. Patient is well-appearing, nontoxic. Tolerating p.o. without difficulty. Social work was consulted and that there is a bed available for him. Patient counseled regarding signs and symptoms for which I believe and urgent re-evaluation would be necessary. Patient with good under standing of and agreement to plan and is comfortable going home at this time This document was made in part using voice recognition software. While efforts are made to proofread this document, sound alike and grammatical errors may occur. Departure - Departure Disposition: 01 Home, Self Care Clinical Impression: Vomiting Qualifiers: Vomiting type: unspecified Vomiting Intractability: non-intractable Nausea presence: with nausea Qualified Code(s): R11.2 - Nausea with vomiting, unspecified Abdominal pain Qualifiers: Abdominal location: generalized Qualified Code(s): R10.84 - Generalized abdominal pain Condition: Good Instructions: ED Alcohol Intoxication, ED Abdominal Pain Unkn Cause Follow-Up: your,doctor in 1 week [Other] Comments: You are to return to the [facility] stabilization facility today for detox. Please follow-up with your doctor for further care.
[2021-02-08 14:29] LABS: BASOPHILS # (AUTO) 0.1 10^3/uL (0.0-0.1); BASOPHILS % (AUTO) 1.7 %; EOSINOPHILS % (AUTO) 0.9 %; HCT - HEMATOCRIT 40.2 % (42.0-52.0); HGB - HEMOGLOBIN 13.5 g/dL (14.0-18.0); LYMPHOCYTES % (AUTO) 21.9 %; MEAN CORPUSCULAR HEMOGLOBIN 32.5 pg (27.0-31.0); MEAN CORPUSCULAR HGB CONC 33.6 g/dL (32.0-36.0); MEAN CORPUSCULAR VOLUME 96.6 fL (80.0-94.0); MEAN PLATELET VOLUME 8.8 fL (7.4-11.4); MONOCYTES # (AUTO) 0.3 10^3/uL (0.0-1.0); MONOCYTES % (AUTO) 5.4 %; NEUTROPHILS # (AUTO) 3.2 10^3/uL (1.5-6.6); NEUTROPHILS % (AUTO) 70.1 %; PLT - PLATELET COUNT 242 10^3/uL (130-450); RED BLOOD COUNT 4.16 10^6/uL (4.70-6.10); RED CELL DISTRIBUTION WIDTH 13.4 % (12.0-15.0); WHITE BLOOD COUNT 4.6 x10^3/uL (4.8-10.8)
[2021-02-08 14:30] LABS: MUDS CUTOFF CONCENTRATIONS CUTOFF CONC BELOW:
[2021-02-08 14:39] LABS: BILIRUBIN,URINE NEGATIVE (NEGATIVE); GLUCOSE, URINE (UA) NEGATIVE (NEGATIVE); KETONES,URINE (UA) 15 mg/dL (NEGATIVE); LEUKOCYTE ESTERASE, URINE NEGATIVE (NEGATIVE); NITRITE,URINE NEGATIVE (NEGATIVE); OCCULT BLOOD,URINE NEGATIVE (NEGATIVE); PH,URINE 6.5 PH (5.0-7.5); PROTEIN,URINE NEGATIVE (NEGATIVE); UROBILINOGEN,URINE 0.2 (NORMAL) E.U./dL (NORMAL)
[2021-02-08 14:42] LABS: CLARITY,URINE CLEAR (CLEAR)
[2021-02-08 14:48] LABS: COCAINE SCREEN URINE NEGATIVE (NEGATIVE); METHAMPHETAMINES SCREEN, URINE NEGATIVE (NEGATIVE); THC CANNABINOID SCREEN, URINE NEGATIVE (NEGATIVE)
[2021-02-08 14:49] LABS: ACETAMINOPHEN < 10 ug/mL (10-30); ALBUMIN 4.7 g/dL (3.2-5.5); ALBUMIN/GLOBULIN RATIO 1.6 (1.0-2.2); ALKALINE PHOSPHATASE 79 IU/L (42-121); ALT ALANINE AMINOTRANSFERASE 18 IU/L (10-60); AMPHETAMINE SCREEN,URINE NEGATIVE (NEGATIVE); AST ASPARTATE AMINOTRANSFERASE 36 IU/L (10-42); BARBITURATE SCREEN,UR NEGATIVE (NEGATIVE); BENZODIAZEPINES SCREEN, URINE POSITIVE (NEGATIVE); BILIRUBIN,TOTAL 0.4 mg/dL (0.2-1.0); BUN - BLOOD UREA NITROGEN 8 mg/dL (6-20); CARBON DIOXIDE - CO2 27 mmol/L (21-32); CHLORIDE 92 mmol/L (101-111); CREATININE 0.6 mg/dL (0.6-1.2); ETOH - ETHANOL 255.3 mg/dL; GFR - MDRD 139 (>89); GLUCOSE 119 mg/dL (70-100); LIPASE 30 U/L (22-51); METHADONE SCREEN, URINE NEGATIVE (NEGATIVE); OPIATE SCREEN, URINE POSITIVE (NEGATIVE); OXYCODONE SCREEN, URINE NEGATIVE (NEGATIVE); POTASSIUM 3.4 mmol/L (3.5-5.0); PROPOXYPHENE SCREEN, URINE NEGATIVE (NEGATIVE); SALICYLATE < 6.0 mg/dL; SODIUM 137 mmol/L (135-145); TOTAL PROTEIN 7.6 g/dL (6.7-8.2); TRICYCLIC ANTIDEPRESSANT,URINE NEGATIVE (NEGATIVE)
[2021-02-08] MEDS ORDERED: IOVERSOL 320 100 ML VIAL IVP ONE ×2 (15:07→17:54)
[2021-02-08 16:13] LABS: B. PARAPERTUSSIS- RESP PCR PAN NOT DETECTED; B. PERTUSSIS- RESP PCR PANEL NOT DETECTED; C. PNEUMONIAE- RESP PCR PANEL NOT DETECTED; CORONAVIRUS 229E-RESP PCR NOT DETECTED; CORONAVIRUS HKU1-RESP PCR NOT DETECTED; CORONAVIRUS NL63-RESP PCR NOT DETECTED; CORONAVIRUS OC43-RESP PCR NOT DETECTED; HUMAN METAPNEUMOVIRUS NOT DETECTED; INFLUENZA A- RESP PCR PANEL NOT DETECTED; INFLUENZA B - RESP PCR PANEL NOT DETECTED; M. PNEUMONIAE- RESP PCR PANEL NOT DETECTED; PARAINFLUENZA VIRUS 1 NOT DETECTED; PARAINFLUENZA VIRUS 2 NOT DETECTED; PARAINFLUENZA VIRUS 3 NOT DETECTED; PARAINFLUENZA VIRUS 4 NOT DETECTED; RHINOVIRUS/ENTEROVIRUS NOT DETECTED; RSV- RESP PCR PANEL NOT DETECTED; SARS-CoV-2 -RESP PCR PANEL NOT DETECTED
[2021-02-08] MEDS ORDERED: LORazepam 1 MG TABLET PO STA (16:22)
--- NOTE | 2021-02-08 16:39 | CT Report ---
PROCEDURE: Abdomen/Pelvis W INDICATIONS: diffuse abd pain, alcoholic CONTRAST: IV CONTRAST: Optiray 320 ml: 100 PO CONTRAST: *NO PO CONTRAST TECHNIQUE: After the administration of intravenous contrast, 5 mm thick sections acquired from the diaphragms to the symphysis. 5 mm thick coronal and sagittal reformats were acquired. For radiation dose reducti on, the following was used: automated exposure control, adjustment of mA and/or kV according to kraig ent size. COMPARISON: 12/30/2020 FINDINGS: Image quality: Excellent. ABDOMEN: Lung bases: Lung bases are clear. Heart size is normal. Solid organs: Liver is diffusely decreased attenuation without focal mass lesion. Spleen unremarkable . Portal vein is patent and not enlarged.. Gallbladder surgically absent. Biliary system is non dil ated. Pancreas enhances normally without evidence of inflammation.. No adrenal nodules. Kidneys de monstrate normal size and enhancement, without hydronephrosis. Peritoneum and bowel: There is colonic mural fatty infiltration consistent with prior inflammation. N o evidence of acute colitis present. Partial sigmoidectomy and anastomosis intact. Nodes and vessels: No retroperitoneal or mesenteric adenopathy by size criteria. Aorta and inferior vena cava are normal in size. Miscellaneous: No ventral hernias. PELVIS: Genitourinary: Bladder wall thickness is normal. Miscellaneous: No inguinal hernias or adenopathy. Bones: No suspicious bony lesions. No vertebral body compression fractures. IMPRESSION: 1. No acute CT abdomen and pelvis findings. 2. Hepatic fatty infiltration, cholecystectomy and sigmoid anastomosis, stable from the prior. Reviewed by: Jarivs Rodriguez MD on 02/08/2021 3:38 PM [facility]DT Approved by: Jarvis Rodriguez MD on 02/08/2021 3:38 PM AKDT Station ID: [id number]
[2021-02-08 16:55] VITALS: BP 112/69
== END 2021-02-08 17:02 | disposition home or self-care (01) ==
LOC: ED 14:00
DX: R11.2 Nausea with vomiting, unspecified (principal); R10.9 Unspecified abdominal pain; F17.200 Nicotine dependence, unspecified, uncomplicated; F10.20 Alcohol dependence, uncomplicated; I48.91 Unspecified atrial fibrillation; Z20.822 Contact with and (suspected) exposure to COVID-19
CPT/HCPCS: 36415; 74177; 80053; 80306; 80307; 81003; 83690; 84443; 85025; 87631; 96365; 96375; 99284; G0480; J7040; J8499; Q9967; 0202U; 80320; 80329; 81001; 87086

== ENCOUNTER 2021-07-05 21:34 | Outpatient (CLI) | payer MEDICARE, MEDICAID | END 2021-07-05 21:35 | disposition critical access hospital (66) | LOC: EMS 21:34 | DX: R07.89 Other chest pain (principal) | CPT/HCPCS: A0425; A0427 ==

== ENCOUNTER 2021-07-05 21:57 | Emergency (ER) | payer MEDICARE, MEDICAID ==
--- NOTE | 2021-07-05 22:34 | ED Physician Documentation ---
PD HPI CHEST PAIN - Stated complaint Stated Complaint: CHEST PX - Chief complaint Chief Complaint: Cardiac - History obtained from History obtained from: Patient, EMS - History of Present Illness Timing - onset: Other (initially says five days, but later in HPI, says its been longer, maybe a month) Timing - duration: Weeks Timing - details: Gradual onset, Constant Pain level now: 3 Quality: Pain Location: Substernal Radiation: Right upper extremity Improved by: Nothing Worsened by: Position (lying supine) Associated symptoms: No: Shortness of air, Nausea, Vomiting Similar symptoms before: Has not had sx before Recently seen: Not recently seen Review of Systems Constitutional: reports: Reviewed and negative Cardiac: reports: Chest pain / pressure. denies: Palpitations, Pedal edema, Calf pain Respiratory: reports: Reviewed and negative GI: reports: Reviewed and negative : denies: Dysuria, Frequency PD PAST MEDICAL HISTORY - Past Medical History Cardiovascular: None, Atrial fibrillation Respiratory: None Neuro: None Endocrine/Autoimmune: None GI: GERD, Pancreatitis, Other : None HEENT: None Psych: Anxiety, Other Musculoskeletal: Chronic back pain Derm: None - Past Surgical History Past Surgical History: Yes General: Cholecystectomy, Colonoscopy, Other Ortho: Rotator cuff repair HEENT: Other - Present Medications Home Medications: Ambulatory Orders Medication Instructions Recorded Confirmed Hydrocodone/Acetaminophen 1 tab PO QID PRN 06/11/19 01/20/21 [Hydrocodone-Acetamin 5-325 mg] Cyclobenzaprine [Flexeril] 10 mg PO TID PRN #20 tablet 10/02/19 01/20/21 Omeprazole Magnesium 20 mg PO DAILY 12/30/20 01/20/21 Quetiapine Fumarate [Seroquel] 50 mg PO QPM 12/31/20 01/20/21 Thiamine [Vitamin B-1] 100 mg PO DAILY #30 tablet 12/31/20 01/20/21 chlordiazePOXIDE [Librium] 25 mg PO Q8H #3 12/31/20 01/20/21 - Allergies Allergies/Adverse Reactions: Allergies Allergy/AdvReac Type Severity Reaction Status Date / Time buspirone [From BuSpar] Allergy Unknown Verified 07/05/21 22:05 pregabalin [From Lyrica] Allergy Unknown Verified 07/05/21 22:05 Penicillins AdvReac Unknown Rash Verified 07/05/21 22:05 - Social History Does the pt smoke?: Yes Smoking Status: Current every day smoker Does the pt drink ETOH?: Yes Does the pt have substance abuse?: No - Immunizations Immunizations are current?: Yes - POLST Patient has POLST: No POLST Status: Full Code PD ED PE NORMAL - Vitals Vital signs reviewed: Yes - General General: Alert and oriented X 3, No acute distress, Well developed/nourished - HEENT HEENT: Moist mucous membranes - Neck Neck: Supple, no meningeal sign - Cardiac Cardiac: RRR, No murmur, No gallop, No rub - Respiratory Respiratory: No respiratory distress, Clear bilaterally - Abdomen Abdomen: Soft, Non tender - Derm Derm: Normal color, Warm and dry - Extremities Extremities: No edema Results - Vitals Vitals: Oxygen O2 Source Room air - EKG (time done) No standard instances Rate: Rate (enter#) (80) Rhythm: NSR Hendricks: Normal Intervals: Normal RI QRS: Normal Ischemia: Normal ST segments - Labs Labs: Laboratory Tests 07/05/21 07/05/21 07/05/21 22:47 22:53 22:53 WBC 6.6 RBC 4.61 L Hgb 14.3 Hct 42.0 MCV 91.1 MCH 31.0 MCHC 34.0 RDW 14.7 Plt Count 121 L MPV 9.4 Neut # (Auto) 4.0 Lymph # (Auto) 2.2 [place] # (Auto) 0.4 Eos # (Auto) 0.0 Baso # (Auto) 0.1 Absolute Nucleated RBC 0.00 Nucleated RBC % 0.0 PT 10.2 INR 0.9 APTT 30.9 Sodium 138 Potassium 3.9 Chloride 99 L Carbon Dioxide 22 Anion Gap 17.0 H BUN 12 Creatinine 0.9 Estimated GFR (MDRD) 87 L Glucose 94 Calcium 8.5 Total Bilirubin 0.4 AST 73 H ALT 48 Alkaline Phosphatase 88 Troponin I High Sens B-Natriuretic Peptide Total Protein 7.6 Albumin 4.4 Globulin 3.2 Albumin/Globulin Ratio 1.4 Lipase 44 Ethyl Alcohol 372.2 07/05/21 07/05/21 22:53 22:53 WBC RBC Hgb Hct MCV MCH MCHC RDW Plt Count MPV Neut # (Auto) Lymph # (Auto) [place] # (Auto) Eos # (Auto) Baso # (Auto) Absolute Nucleated RBC Nucleated RBC % PT INR APTT Sodium Potassium Chloride Carbon Dioxide Anion Gap BUN Creatinine Estimated GFR (MDRD) Glucose Calcium Total Bilirubin AST ALT Alkaline Phosphatase Troponin I High Sens 10.8 B-Natriuretic Peptide 16 Total Protein Albumin Globulin Albumin/Globulin Ratio Lipase Ethyl Alcohol - Rads (name of study) chest xray Radiology: Prelim report reviewed, See rad report PD MEDICAL DECISION MAKING - ED course Complexity details: reviewed results, re-evaluated patient, considered dif ferential, d/w patient ED course: BIBA for chest pain , ongoing for at least one week (at times he says the pain has been going on for a month). Unremarkable test results including EKG, CXR, blood tests (including hs-cTn). He requests ativan early in stay for anxiety but HBD, so given low dose (0.5mg). He evidences no sign/symptom of withdrawal. Results d/w patient, cause of his symptoms unclear at this time, encouraged to f/u with PMD, return precautions discussed. Departure - Departure Disposition: 01 Home, Self Care Clinical Impression: Chest pain Qualifiers: Chest pain type: unspecified Qualified Code(s): R07.9 - Chest pain, unspecified Condition: Good Instructions: ED Chest Pain Atypical Unkn Cause Follow-Up: JERSON ABRAHAM MD [Primary Care Provider] - Comments: Your test results tonight have no concerning findings aside from a high blood alcohol level. Your EKG ,chest xray, and other blood tests (including a cardiac enzyme blood test) are all unremarkable. Follow up with your primary care provider, as further testing might be indicated even if your symptoms resolve. Discharge Date/Time: 07/06/21 00:25
[2021-07-05] MEDS ORDERED: LORazepam 0.5 MG TABLET PO STA (22:46)
[2021-07-05 23:00] LABS: BASOPHILS # (AUTO) 0.1 10^3/uL (0.0-0.1); BASOPHILS % (AUTO) 0.8 %; EOSINOPHILS % (AUTO) 0.5 %; HGB - HEMOGLOBIN 14.3 g/dL (14.0-18.0); LYMPHOCYTES # (AUTO) 2.2 10^3/uL (1.5-3.5); MEAN CORPUSCULAR VOLUME 91.1 fL (80.0-94.0); MEAN PLATELET VOLUME 9.4 fL (7.4-11.4); MONOCYTES # (AUTO) 0.4 10^3/uL (0.0-1.0); MONOCYTES % (AUTO) 5.4 %; PLT - PLATELET COUNT 121 10^3/uL (130-450); RED BLOOD COUNT 4.61 10^6/uL (4.70-6.10); RED CELL DISTRIBUTION WIDTH 14.7 % (12.0-15.0); WHITE BLOOD COUNT 6.6 x10^3/uL (4.8-10.8)
--- NOTE | 2021-07-05 23:03 | XRAY Report ---
PROCEDURE: Chest 2 View X-Ray INDICATIONS: chest pain, dyspnea TECHNIQUE: 2 view(s) of the chest. COMPARISON: 09/11/2019 FINDINGS: Surgical changes and devices: None. Lungs and pleura: No pleural effusions or pneumothorax. Lungs are clear. Mediastinum: Mediastinal contours are normal. Heart size is normal. Bones and chest wall: No suspicious bony abnormalities. Soft tissues appear unremarkable. IMPRESSION: No acute process. Reviewed by: Dominick Harmon MD on 07/05/2021 11:02 PM [facility] Approved by: Dominick Harmon MD on 07/05/2021 11:02 PM [facility] Station ID: [id number]
[2021-07-05 23:05] LABS: INR 0.9 (0.8-1.2); PT - PROTHROMBIN TIME 10.2 secs (9.9-12.6)
[2021-07-05 23:13] LABS: ALBUMIN 4.4 g/dL (3.2-5.5); ALBUMIN/GLOBULIN RATIO 1.4 (1.0-2.2); BILIRUBIN,TOTAL 0.4 mg/dL (0.2-1.0); CALCIUM 8.5 mg/dL (8.5-10.3); CREATININE 0.9 mg/dL (0.6-1.2); ETOH - ETHANOL 372.2 mg/dL; POTASSIUM 3.9 mmol/L (3.5-5.0); TOTAL PROTEIN 7.6 g/dL (6.7-8.2)
[2021-07-05 23:14] LABS: PARTIAL THROMBOPLASTIN TIME 30.9 secs (24.9-33.3)
[2021-07-06] MEDS ORDERED: PANTOPRAZOLE 40 MG TABLET PO STA (00:06)
[2021-07-06 00:26] VITALS: BP 127/86
== END 2021-07-06 00:25 | disposition home or self-care (01) ==
LOC: EDUNIT# → ED 21:57
DX: R07.9 Chest pain, unspecified (principal); I48.91 Unspecified atrial fibrillation; F17.200 Nicotine dependence, unspecified, uncomplicated
CPT/HCPCS: 36415; 71046; 80053; 83690; 83880; 84484; 85025; 85610; 85730; 93005; 99282; 99284; A9270; G0480; 80320

== ENCOUNTER 2021-08-17 12:14 | Outpatient (CLI) | payer MEDICARE, MEDICAID | END 2021-08-17 12:15 | disposition critical access hospital (66) | LOC: EMS 12:14 | DX: R11.2 Nausea with vomiting, unspecified (principal); R10.812 Left upper quadrant abdominal tenderness; R25.1 Tremor, unspecified; R00.0 Tachycardia, unspecified; Z72.89 Other problems related to lifestyle | CPT/HCPCS: A0425; A0427 ==

== ENCOUNTER 2021-08-17 12:38 | Emergency (ER) | payer MEDICARE, MEDICAID ==
--- NOTE | 2021-08-17 12:41 | ED Physician Documentation ---
PD HPI NVD - Stated complaint Stated Complaint: VOMITING - History obtained from History obtained from: Patient - History of Present Illness Timing - onset: How many days ago (3-4) Timing - duration: Days Timing - details: Gradual onset, Still present (The patient states he has been sober not drinking for several months and then resumed drinking again. He was just in a alcohol detox program and released about 2 week ago. He states he was drinking heavily for several days due to stress of a in the family. He had been trying to stop now.), Waxing and waning Associated symptoms: Other (He denies any hematemesis nor diarrhea nor melena. He has had just alcohol the last 4 days or so without any food due to vomiting. He has been shaky and nauseous more if unable to drink.). No: Fever, Abdominal pain, Hematemesis, Near syncope / syncope Contributing factors: Alcohol use. No: Sick contact, Bad food Similar symptoms before: Diagnosis (alcohol withdrawal and gastritis.) Recently seen: Other (in alcohol detox program recently, released about 2 weeks ago.) Review of Systems Constitutional: denies: Fever, Chills Nose: denies: Rhinorrhea / runny nose, Congestion Throat: denies: Sore throat Respiratory: denies: Cough GI: reports: Abdominal Pain (intermittent cramps.), Nausea, Vomiting. denies: Hematemesis, Bloody / black stool PD PAST MEDICAL HISTORY - Past Medical History Cardiovascular: None, Atrial fibrillation Respiratory: None Neuro: None Endocrine/Autoimmune: None GI: GERD, Pancreatitis, Other : None HEENT: None Psych: Anxiety, Other Musculoskeletal: Chronic back pain Derm: None - Past Surgical History Past Surgical History: Yes General: Cholecystectomy, Colonoscopy, Other Ortho: Rotator cuff repair HEENT: Other - Present Medications Home Medications: Ambulatory Orders Medication Instructions Recorded Confirmed Omeprazole Magnesium 20 mg PO DAILY 12/30/20 08/17/21 Quetiapine Fumarate [Seroquel] 50 mg PO QPM 12/31/20 08/17/21 Famotidine [Pepcid] 20 mg PO DAILY #14 tablet 08/17/21 LORazepam [Ativan] 1 mg PO Q6H PRN #25 tablet 08/17/21 Ondansetron Odt [Zofran] 4 mg TL Q6H PRN #15 tablet 08/17/21 PHENobarbitaL [Phenobarbital] 30 mg PO BID 6 Days #9 tablet 08/17/21 - Allergies Allergies/Adverse Reactions: Allergies Allergy/AdvReac Type Severity Reaction Status Date / Time buspirone [From BuSpar] Allergy Unknown Verified 08/17/21 12:43 pregabalin [From Lyrica] Allergy Unknown Verified 08/17/21 12:43 Penicillins AdvReac Unknown Rash Verified 08/17/21 12:43 - Social History Does the pt smoke?: Yes Smoking Status: Current every day smoker Does the pt drink ETOH?: Yes Does the pt have substance abuse?: No - Immunizations Immunizations are current?: Yes - POLST Patient has POLST: No POLST Status: Full Code PD ED PE NORMAL - Vitals Vital signs reviewed: Yes (tachycardic and elevated BP) - General General: Alert and oriented X 3, Well developed/nourished, Other (The patient is very pleasant and conversant but obviously very shaky appearing like alcohol withdrawal.) - HEENT HEENT: Pharynx benign. No: Moist mucous membranes - Neck Neck: Supple, no meningeal sign, No adenopathy - Cardiac Cardiac: No: RRR (regular but tachycardic) - Respiratory Respiratory: Clear bilaterally - Abdomen Abdomen: Normal bowel sounds, Soft, Non distended, No organomegaly, Other (Mildly tender in the epigastric area without any guarding or percussion tenderness. Bowel sounds are present but diminished.) - Back Back: No CVA TTP - Derm Derm: Warm and dry. No: Normal color (pale) - Extremities Extremities: No tenderness to palpate, Normal ROM s pain, No edema, No calf tenderness / cord - Neuro Neuro: Alert and oriented X 3, No motor deficit, Normal speech Results - Vitals Vitals: Vital Signs - 24 hr 08/17/21 08/17/21 08/17/21 12:40 14:10 16:00 Temperature 37.1 C Heart Rate 128 H 110 H 104 H Respiratory 18 12 18 Rate Blood Pressure 144/90 H 127/69 110/90 H O2 Saturation 99 100 99 Oxygen O2 Source Room air - Labs Labs: Laboratory Tests 08/17/21 08/17/21 08/17/21 13:11 13:11 13:11 WBC RBC Hgb Hct MCV MCH MCHC RDW Plt Count MPV Neut # (Auto) Lymph # (Auto) [place]ink[place] # (Auto) Eos # (Auto) Baso # (Auto) Absolute Nucleated RBC Nucleated RBC % VBG pH 7.516 H VBG pCO2 31.9 L VBG pO2 31.9 VBG HCO3 25.2 VBG Total CO2 26.2 VBG O2 Saturation 67.8 VBG Base Excess 3.1 H Sodium 139 Potassium 3.8 Chloride 93 L Carbon Dioxide 23 Anion Gap 23.0 H BUN 14 Creatinine 0.9 Estimated GFR (MDRD) 87 L Glucose 123 H Calcium 8.9 Magnesium 2.0 Total Bilirubin 0.8 AST 43 H ALT 34 Alkaline Phosphatase 88 Total Protein 7.7 Albumin 4.5 Globulin 3.2 Albumin/Globulin Ratio 1.4 Lipase 29 TSH 2.06 Ethyl Alcohol 127.6 Serum Ketones NEGATIVE 08/17/21 13:34 WBC 15.3 H RBC 4.55 L Hgb 14.3 Hct 42.1 MCV 92.5 MCH 31.4 H MCHC 34.0 RDW 14.2 Plt Count 301 MPV 8.7 Neut # (Auto) 13.2 H Lymph # (Auto) 1.2 L [place]ink[place] # (Auto) 0.7 Eos # (Auto) 0.0 Baso # (Auto) 0.1 Absolute Nucleated RBC 0.00 Nucleated RBC % 0.0 VBG pH VBG pCO2 VBG pO2 VBG HCO3 VBG Total CO2 VBG O2 Saturation VBG Base Excess Sodium Potassium Chloride Carbon Dioxide Anion Gap BUN Creatinine Estimated GFR (MDRD) Glucose Calcium Magnesium Total Bilirubin AST ALT Alkaline Phosphatase Total Protein Albumin Globulin Albumin/Globulin Ratio Lipase TSH Ethyl Alcohol Serum Ketones PD MEDICAL DECISION MAKING - ED course Complexity details: reviewed results, re-evaluated patient (He is notably improved after IV fluids and medications. He is administered a "banana bag" and also given medication for alcohol withdrawal. He is calmer and less shaky considerably.), considered differential (Patient appears to be in significant withdrawal with a CIWA score of 15. Will give fluids and medications to help.), d/w patient ED course: He is improved in symptoms and is able to tolerate and keep down oral fluids and some crackers. He does feel able for discharge. Social work talked with him about trying to get into [facility] for detox. They did not have any openings today but he is to call them tomorrow to see on availability. He does feel he has enough social support at home to avoid alcohol and have medications for withdrawal. Social work talked with his family members and they would help support him and get him back into a detox program. Departure - Departure Disposition: 01 Home, Self Care Clinical Impression: Alcoholism Alcohol withdrawal Qualifiers: Complication of substance-induced condition: uncomplicated Qualified Code(s): F10.230 - Alcohol dependence with withdrawal, uncomplicated Condition: Stable Record reviewed to determine appropriate education?: Yes Instructions: ED Withdrawal Alcohol Follow-Up: JERSON ABRAHAM MD [Primary Care Provider] - Prescriptions: LORazepam [Ativan] 1 mg PO Q6H PRN #25 tablet PRN Reason: Alcohol Withdrawal Famotidine [Pepcid] 20 mg PO DAILY #14 tablet PHENobarbitaL [Phenobarbital] 30 mg PO BID 6 Days #9 tablet Ondansetron Odt [Zofran] 4 mg TL Q6H PRN #15 tablet PRN Reason: Nausea / Vomiting Comments: Small frequent fluids and bland food. Stay well-hydrated. For the withdrawal symptoms, use the phenobarbital 30 mg twice daily for the next 3 days then once daily for the following 3 days. Additionally use lorazepam 1 to 2 tablets every 6 hours if needed for the withdrawal as well. Use the Zofran if needed for nausea. To protect your stomach, also add famotidine acid reducing medicine daily for the next couple of weeks. Seek treatment for and placement for detox program as planned. Our social work did help you with some of the resources and phone numbers to call. Return to the ER if needed for worse symptoms despite the medication. [facility]. Of course avoid alcohol. Discharge Date/Time: 08/17/21 16:41
[2021-08-17] MEDS ORDERED: SODIUM CHLORIDE 0.9% 1,000 ML IV STA (12:55)
[2021-08-17] MEDS ORDERED: LORazepam 2 MG/ML VIAL IVP STA ×2 (12:55→16:07)
[2021-08-17] MEDS ORDERED: PANTOPRAZOLE 40 MG VIAL IVP STA (12:56)
[2021-08-17] MEDS ORDERED: DROPERIDOL 5 MG/2 ML VIAL IVP STA (12:56)
[2021-08-17] MEDS ORDERED: THIAMINE INJ 100 MG, MAGNESIUM SULFATE 2 GM, MULTIVITAMIN 10 ML, FOLIC ACID INJ 1 MG in... IV ONE ×5 (12:58)
--- OUTSIDE RECORDS SUMMARY | 2021-08-17 12:58 | EXTERNAL MEDICAL SUMMARY RPT | Continuity of Care Document ---
:1965 Author Organization [facility] Address [address] [place] [address] Phone Care Team Providers Name Role Phone GabyLavelle tinajero Unavailable Unavailable Allergies No information. Encounters No information. Medications No information. Problems date description facility [id number] [email or web address] [id number] Chest Pain [email or web address] [id number] Pain in left shoulder [facility] [id number] Contact with and (suspected) exposure [facility] to COVID-19 Results No information.
[2021-08-17 13:18] LABS: VBG BASE EXCESS 3.1 mmol/L (-2 - +2); VBG HCO3 25.2 mmol/L (23-28); VBG OXYGEN SATURATION 67.8 % (60-80); VBG PCO2 31.9 mmHg (41-51); VBG PH 7.516 (7.31-7.41); VBG PO2 31.9 mmHg (25-47); VBG TOTAL CO2 26.2 mmol/L (24-29)
[2021-08-17 13:34] LABS: ALBUMIN 4.5 g/dL (3.2-5.5); ALBUMIN/GLOBULIN RATIO 1.4 (1.0-2.2); ALKALINE PHOSPHATASE 88 IU/L (42-121); ALT ALANINE AMINOTRANSFERASE 34 IU/L (10-60); AST ASPARTATE AMINOTRANSFERASE 43 IU/L (10-42); BILIRUBIN,TOTAL 0.8 mg/dL (0.2-1.0); BUN - BLOOD UREA NITROGEN 14 mg/dL (6-20); CALCIUM 8.9 mg/dL (8.5-10.3); CARBON DIOXIDE - CO2 23 mmol/L (21-32); CHLORIDE 93 mmol/L (101-111); CREATININE 0.9 mg/dL (0.6-1.2); ETOH - ETHANOL 127.6 mg/dL; GFR - MDRD 87 (>89); GLUCOSE 123 mg/dL (70-100); LIPASE 29 U/L (22-51); POTASSIUM 3.8 mmol/L (3.5-5.0); SODIUM 139 mmol/L (135-145); TOTAL PROTEIN 7.7 g/dL (6.7-8.2)
[2021-08-17 13:38] LABS: BASOPHILS # (AUTO) 0.1 10^3/uL (0.0-0.1); BASOPHILS % (AUTO) 0.7 %; HCT - HEMATOCRIT 42.1 % (42.0-52.0); HGB - HEMOGLOBIN 14.3 g/dL (14.0-18.0); LYMPHOCYTES # (AUTO) 1.2 10^3/uL (1.5-3.5); LYMPHOCYTES % (AUTO) 7.9 %; MEAN CORPUSCULAR HEMOGLOBIN 31.4 pg (27.0-31.0); MEAN CORPUSCULAR VOLUME 92.5 fL (80.0-94.0); MEAN PLATELET VOLUME 8.7 fL (7.4-11.4); MONOCYTES # (AUTO) 0.7 10^3/uL (0.0-1.0); MONOCYTES % (AUTO) 4.7 %; NEUTROPHILS # (AUTO) 13.2 10^3/uL (1.5-6.6); NEUTROPHILS % (AUTO) 86.4 %; PLT - PLATELET COUNT 301 10^3/uL (130-450); RED BLOOD COUNT 4.55 10^6/uL (4.70-6.10); RED CELL DISTRIBUTION WIDTH 14.2 % (12.0-15.0); WHITE BLOOD COUNT 15.3 x10^3/uL (4.8-10.8)
[2021-08-17 13:40] LABS: KETONES, SERUM (ACETEST) NEGATIVE (NEGATIVE)
[2021-08-17] MEDS ORDERED: PHENobarbital 65 MG/ML VIAL IV STA (14:13)
[2021-08-17 16:03] VITALS: BP 110/90
== END 2021-08-17 16:41 | disposition home or self-care (01) ==
LOC: EDUNIT# → ED 12:38
DX: F10.230 Alcohol dependence with withdrawal, uncomplicated (principal); I48.91 Unspecified atrial fibrillation; F17.200 Nicotine dependence, unspecified, uncomplicated; Y90.6 Blood alcohol level of 120-199 mg/100 ml
CPT/HCPCS: 36415; 80053; 82009; 82803; 83690; 83735; 84443; 85025; 96365; 96366; 96375; 96376; 99283; 99284; G0480; J2060; J3411; 80320

== ENCOUNTER 2022-03-05 13:39 | Outpatient (CLI) | payer MEDICARE, MEDICAID | END 2022-03-05 13:40 | disposition critical access hospital (66) | LOC: EMS 13:39 | DX: R10.11 Right upper quadrant pain (principal); R10.31 Right lower quadrant pain | CPT/HCPCS: A0425; A0427 ==

== ENCOUNTER 2022-03-05 14:05 | Emergency (ER) | payer MEDICARE, MEDICAID ==
--- NOTE | 2022-03-05 14:10 | ED Physician Documentation ---
PD HPI ABD PAIN - Stated complaint Stated Complaint: ABD PX - History obtained from History obtained from: Patient - History of Present Illness Timing - onset: How many days ago (2-3) Timing - duration: Days (2-3) Timing - details: Gradual onset, Still present, Waxing and waning Quality: Aching, Sharp, Pain Location: RUQ, RLQ Radiation: Right flank Improved by: Other (he states alcohol makes it feel better.). No: Vomiting Worsened by: Eating Associated symptoms: Nausea, Vomiting, Loss of appetite. No: Fever, Diarrhea, Constipation, Melena Similar symptoms before: Diagnosis (ulcers/gastritits/pancreatitis.) Recently seen: Emergency Dept (for abd pain and vomiting) Review of Systems Constitutional: denies: Fever, Myalgias Nose: denies: Rhinorrhea / runny nose, Congestion Throat: denies: Sore throat Cardiac: denies: Chest pain / pressure Respiratory: reports: Cough GI: reports: Abdominal Pain, Nausea, Vomiting, Diarrhea. denies: Abdominal Swelling, Constipation, Bloody / black stool Skin: denies: Rash, Lesions PD PAST MEDICAL HISTORY - Past Medical History Cardiovascular: None, Atrial fibrillation Respiratory: None Neuro: None Endocrine/Autoimmune: None GI: GERD, Pancreatitis, Other : None HEENT: None Psych: Anxiety, Other Musculoskeletal: Chronic back pain Derm: None - Past Surgical History Past Surgical History: Yes General: Cholecystectomy, Colonoscopy, Other Ortho: Rotator cuff repair HEENT: Other - Present Medications Home Medications: Ambulatory Orders Medication Instructions Recorded Confirmed Omeprazole Magnesium 20 mg PO DAILY 12/30/20 08/17/21 Quetiapine Fumarate [Seroquel] 50 mg PO QPM 12/31/20 08/17/21 Famotidine [Pepcid] 20 mg PO DAILY #14 tablet 08/17/21 LORazepam [Ativan] 1 mg PO Q6H PRN #25 tablet 08/17/21 Ondansetron Odt [Zofran] 4 mg TL Q6H PRN #15 tablet 08/17/21 PHENobarbitaL [Phenobarbital] 30 mg PO BID 6 Days #9 tablet 08/17/21 LORazepam [Ativan] 1 mg PO BID PRN #12 tablet 03/05/22 Ondansetron Odt [Zofran] 4 mg TL Q6H PRN #15 tablet 03/05/22 Oxycodone HCl/Acetaminophen 1 each PO Q6H PRN #18 tablet 03/05/22 [Percocet 5-325 mg Tablet] Pantoprazole [Protonix] 40 mg PO DAILY 30 Days #30 tablet 03/05/22 Sucralfate [Carafate] 1 gm PO ACHS #28 tablet 03/05/22 - Allergies Allergies/Adverse Reactions: Allergies Allergy/AdvReac Type Severity Reaction Status Date / Time buspirone [From BuSpar] Allergy Unknown Verified 08/17/21 12:43 pregabalin [From Lyrica] Allergy Unknown Verified 08/17/21 12:43 Penicillins AdvReac Unknown Rash Verified 08/17/21 12:43 - Social History Does the pt smoke?: Yes Smoking Status: Current every day smoker Does the pt drink ETOH?: Yes ETOH Use: Other (regular excess alcohol) Does the pt have substance abuse?: No - Immunizations Immunizations are current?: Yes - POLST Patient has POLST: No POLST Status: Full Code PD ED PE NORMAL - Vitals Vital signs reviewed: Yes - General General: Alert and oriented X 3, Well developed/nourished, Other (appears uncomfortable/ in pain due to abdomen. some slurring speech and sleepy c/w intoxicated. ) - HEENT HEENT: Pharynx benign - Neck Neck: Supple, no meningeal sign, No adenopathy - Cardiac Cardiac: RRR, No murmur - Respiratory Respiratory: Clear bilaterally - Abdomen Abdomen: Normal bowel sounds, Soft, Non distended, No organomegaly, Other (tender upper abd to RUQ area. with guarding and percussion tenderness. No referred. ) - Rectal Rectal: Deferred - Back Back: No CVA TTP - Derm Derm: Normal color, Warm and dry - Extremities Extremities: No tenderness to palpate, No edema, No calf tenderness / cord - Neuro Neuro: Alert and oriented X 3, No motor deficit, Normal speech Results - Vitals Vitals: Vital Signs - 24 hr 03/05/22 03/05/22 03/05/22 14:14 16:11 17:32 Temperature 36.9 C 36.2 C L Heart Rate 89 66 97 Respiratory 18 19 14 Rate Blood Pressure 133/85 H 131/85 H 118/80 O2 Saturation 97 96 100 Oxygen O2 Source Room air - Labs Labs: Laboratory Tests 03/05/22 03/05/22 03/05/22 14:35 14:35 16:39 WBC 3.8 L RBC 4.03 L Hgb 12.6 L Hct 38.8 L MCV 96.3 H MCH 31.3 H MCHC 32.5 RDW 14.6 Plt Count 71 L MPV 9.2 Neut # (Auto) 2.3 Lymph # (Auto) 1.1 L [place] # (Auto) 0.3 Eos # (Auto) 0.1 Baso # (Auto) 0.0 Absolute Nucleated RBC 0.00 Nucleated RBC % 0.0 Sodium 143 Potassium 3.9 Chloride 106 Carbon Dioxide 26 Anion Gap 11.0 BUN 7 Creatinine 0.7 Estimated GFR (MDRD) 116 Glucose 106 H Calcium 8.4 L Magnesium 2.0 Total Bilirubin 0.3 AST 77 H ALT 42 Alkaline Phosphatase 82 Total Protein 6.6 L Albumin 3.9 Globulin 2.7 Albumin/Globulin Ratio 1.4 Lipase 30 Urine Color YELLOW Urine Clarity CLEAR Urine pH 6.0 Ur Specific [place] <=1.005 Urine Protein NEGATIVE Urine Glucose (UA) NEGATIVE Urine Ketones NEGATIVE Urine Occult Blood NEGATIVE Urine Nitrite NEGATIVE Urine Bilirubin NEGATIVE Urine Urobilinogen 0.2 (NORMAL) Ur Leukocyte Esterase NEGATIVE Ur Microscopic Review NOT INDICATED Urine Culture Comments NOT INDICATED Ethyl Alcohol 387.0 - Rads (name of study) abd/pelvic CT Radiology: Prelim report reviewed (no acute process), See rad report PD MEDICAL DECISION MAKING - ED course Complexity details: reviewed results, re-evaluated patient (improved pain after fluids and meds. No emesis now. Feeling able to go home. ), considered differential (can get CT and labs. Consider ulcer/duoe=denitis, pancreatitis, kidney stone, obstruction, perforation, vascular. ), d/w patient Departure - Departure Disposition: Home, Self Care Clinical Impression: Abdominal pain, Gastritis and duodenitis, Alcoholism Condition: Stable Record reviewed to determine appropriate education?: Yes Instructions: ED Abdominal Pain Unkn Cause Male Prescriptions: LORazepam [Ativan] 1 mg PO BID PRN #12 tablet PRN Reason: Alcohol Withdrawal Sucralfate [Carafate] 1 gm PO ACHS #28 tablet Oxycodone HCl/Acetaminophen [Percocet 5-325 mg Tablet] 1 each PO Q6H PRN #18 tablet PRN Reason: pain Pantoprazole [Protonix] 40 mg PO DAILY 30 Days #30 tablet Ondansetron Odt [Zofran] 4 mg TL Q6H PRN #15 tablet PRN Reason: Nausea / Vomiting Comments: Your blood test did not show any signs of pancreatitis or acute liver inflammation. CT scan did not show any bowel obstruction or kidney stones or acute inflammatory process. I would presume the pain in her stomach is coming from irritation of the stomach or intestine (duodenum). I would treat this with acid reducing medicine as well as medication to coat the stomach called Carafate. Add ondansetron every 6 hours if needed for nausea. Percocet every 6 hours if needed for pain. Minimize or stop alcohol use. Use lorazepam every 12 days 8 to 12 hours if needed for withdrawal symptoms. Recheck if not improving well over the next few days and return if worsen. I transmitted prescription to [facility] pharmacy in [place]. I am prescribing a short course of narcotic pain medication for you. These are potentially dangerous and addictive medications that should be used carefully. These medications may constipate you. Take an [id number] stool softener such as docusate twice daily with plenty of water while taking these medications. If you go 24 hours without a bowel movement, take [id number] MiraLAX, per package instructions. Do not drink or drive while taking these medications. If you received narcotic or sedating medications while in the emergency department do not drive for 24 hours. Store this medication in a safe, secure place and out of reach of children. It is a violation of federal law to give or sell this medication to another person or to use in a manner other than prescribed. The ED will not refill narcotic prescriptions, including prescriptions lost or stolen. You can dispose of unwanted medications at the [facility]'s office or at several pharmacies such as [facility]. Discharge Date/Time: 03/05/22 17:42
--- OUTSIDE RECORDS SUMMARY | 2022-03-05 14:18 | EXTERNAL MEDICAL SUMMARY RPT | Continuity of Care Document ---
:1965 Author Organization [facility] Address [address] [place] [address] Phone Care Team Providers Name Role Phone Lavelle Griffin Unavailable Unavailable Allergies No information. Encounters No information. Functional Status No information. Immunizations No information. Medications date description facility [id number] [facility] Problems No information. Procedures No information. Results/Labs test date author facility value unit interpret ation Result panel 1 (unknown) (no (unknown) (unknown) (no value) (units (unk nown) date) unknown) (unknown) (no (unknown) (unknown) [id number] (units (unkno wn) date) unknown) (unknown) (no (unknown) (unknown) 01/02/22 (units (unkno wn) date) unknown) (unknown) (no (unknown) (unknown) Age/Sex: 56 / M (units (unknown) date) Date of Service: unknown) (unknown) (no (unknown) (unknown) Alcoholism (units (unk nown) date) unknown) (unknown) (no (unknown) (unknown) Allergies (units (unkn own) date) unknown) (unknown) (no (unknown) (unknown) [place], [place] (units ( unknown) date) [id number] unknown) (unknown) (no (unknown) (unknown) Anaphylaxis (units (un known) date) unknown) (unknown) (no (unknown) (unknown) Attending Dr: (units ( unknown) date) Lavelle Benavides D.O. unknown) (unknown) (no (unknown) (unknown) Chronic back pain (units (unknown) date) unknown) (unknown) (no (unknown) (unknown) Confirmed (units (unkn own) date) 01/02/22] unknown) (unknown) (no (unknown) (unknown) : 1965 (units (unknown) date) Acct:[id number] unknown) (unknown) (no (unknown) (unknown) Degenerative disc (units (unknown) date) disease unknown) (unknown) (no (unknown) (unknown) Dept at (units (unkno wn) date) . unknown) (unknown) (no (unknown) (unknown) Documented By: (units (unknown) date) Lavelle Benavides D.O. unknown) 01/02/22 0842 (unknown) (no (unknown) (unknown) Draft (units (unkno wn) date) unknown) (unknown) (no (unknown) (unknown) Facet (units (unkno wn) date) arthropathy, unknown) lumbar (unknown) (no (unknown) (unknown) Family History (units (unknown) date) (Reviewed 03/23/21 unknown) @ 14:07 by Lavelle Benavides DO) (unknown) (no (unknown) (unknown) Footdrop (units (unkno wn) date) unknown) (unknown) (no (unknown) (unknown) Gait instability (units (unknown) date) unknown) (unknown) (no (unknown) (unknown) Hepatic steatosis (units (unknown) date) unknown) (unknown) (no (unknown) (unknown) Herniated nucleus (units (unknown) date) pulposus, L4-5 unknown) (unknown) (no (unknown) (unknown) History of (units (unk nown) date) colostomy reversal unknown) (unknown) (no (unknown) (unknown) Intake Clinical (units (unknown) date) Staff unknown) (unknown) (no (unknown) (unknown) Intake performed (units (unknown) date) by: Janis Trotter unknown) (unknown) (no (unknown) (unknown) Intake (units (unkno wn) date) unknown) (unknown) (no (unknown) (unknown) Loc: PAIN (units (unkn own) date) unknown) (unknown) (no (unknown) (unknown) Medical History (units (unknown) date) unknown) (unknown) (no (unknown) (unknown) Medications (units (un known) date) unknown) (unknown) (no (unknown) (unknown) Melanotic stools (units (unknown) date) unknown) (unknown) (no (unknown) (unknown) Other No (units (unkno wn) date) pertinent family unknown) history in first degree relatives (unknown) (no (unknown) (unknown) PFSH (units (unkno wn) date) unknown) (unknown) (no (unknown) (unknown) Pain Visit (units (unk nown) date) unknown) (unknown) (no (unknown) (unknown) Patient: (units (unkno wn) date) Harrison Banerjee unknown) MR#: [id number] (unknown) (no (unknown) (unknown) Penicillins (units (un known) date) Allergy (Severe, unknown) Verified 01/02/22 08:42) (unknown) (no (unknown) (unknown) RUQ pain (units (unkno wn) date) unknown) (unknown) (no (unknown) (unknown) Reason For Visit (units (unknown) date) unknown) (unknown) (no (unknown) (unknown) Rectal pain (units (un known) date) unknown) (unknown) (no (unknown) (unknown) Signed By: (units (unk nown) date) unknown) (unknown) (no (unknown) (unknown) Smoker (units (unkno wn) date) unknown) (unknown) (no (unknown) (unknown) Smoking Status: (units (unknown) date) Current every day unknown) smoker (unknown) (no (unknown) (unknown) Social History (units (unknown) date) unknown) (unknown) (no (unknown) (unknown) Status post (units (un known) date) cholecystectomy unknown) (unknown) (no (unknown) (unknown) Status post (units (un known) date) exploratory unknown) laparotomy (unknown) (no (unknown) (unknown) Status post (units (un known) date) rotator cuff unknown) repair (unknown) (no (unknown) (unknown) Surgical History (units (unknown) date) (Reviewed 03/23/21 unknown) @ 14:07 by Lavelle Benavides DO) (unknown) (no (unknown) (unknown) [facility] ([facility] unknown) (unknown) (no (unknown) (unknown) This note may (units ( unknown) date) have been all or unknown) partially generated using voice recognition (unknown) (no (unknown) (unknown) Tobacco + (units (unkn own) date) Substance Use unknown) (unknown) (no (unknown) (unknown) Tobacco Status (units (unknown) date) unknown) (unknown) (no (unknown) (unknown) Visit Reasons: FU (units (unknown) date) L spine unknown) (unknown) (no (unknown) (unknown) [Rx Confirmed (units ( unknown) date) 01/02/22] unknown) (unknown) (no (unknown) (unknown) alcohol intake: (units (unknown) date) current unknown) (unknown) (no (unknown) (unknown) celecoxib 200 mg (units (unknown) date) capsule See Rx unknown) Instructions .Route .COMPLEX #90 caps 03/23/21 (unknown) (no (unknown) (unknown) cyclobenzaprine (units (unknown) date) 10 mg tablet 10 mg unknown) PO TID PRN Back Pain #90 tabs 11/22/18 [Rx (unknown) (no (unknown) (unknown) have occurred. If (units (unknown) date) there are any unknown) questions, please contact the Medical Records (unknown) (no (unknown) (unknown) household (units (unkn own) date) members: spouse unknown) (unknown) (no (unknown) (unknown) hydrocodone 5 (units ( unknown) date) mg-acetaminophen unknown) 325 mg tablet 1 tab PO Q6H PRN 03/23/21 [History (unknown) (no (unknown) (unknown) marital status: (units (unknown) date) unknown) (unknown) (no (unknown) (unknown) may occur. (units (unk nown) date) Occasional unknown) wrong-word or 'sound-alike' substitutions may have (unknown) (no (unknown) (unknown) occurred due to (units (unknown) date) the inherent unknown) limitations of voice recognition software. Please (unknown) (no (unknown) (unknown) omeprazole 20 mg (units (unknown) date) capsule,delayed unknown) release 20 mg PO DAILY 09/22/20 [History (unknown) (no (unknown) (unknown) quetiapine 100 mg (units (unknown) date) tablet 100 mg PO unknown) BEDTIME 01/02/22 [History Confirmed 01/02/22] (unknown) (no (unknown) (unknown) quetiapine 50 mg (units (unknown) date) tablet 50 mg PO unknown) BEDTIME 01/14/19 [History Confirmed 01/02/22] (unknown) (no (unknown) (unknown) read the note (units ( unknown) date) carefully and unknown) recognize, using context, where these substitutions (unknown) (no (unknown) (unknown) software. 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 (unknown) (no (unknown) (unknown) substance use (units ( unknown) date) type: does not use unknown) Result panel 2 (unknown) (no (unknown) (unknown) (no value) (units (unk nown) date) unknown) (unknown) (no (unknown) (unknown) [id number] (units (unkno wn) date) unknown) (unknown) (no (unknown) (unknown) 01/02/22 (units (unkno wn) date) unknown) (unknown) (no (unknown) (unknown) 09:03 (units (unkno wn) date) unknown) (unknown) (no (unknown) (unknown) Accompanied by: (units (unknown) date) Self / Same As unknown) Patient (unknown) (no (unknown) (unknown) Age/Sex: 56 / M (units (unknown) date) Date of Service: unknown) (unknown) (no (unknown) (unknown) Alcoholism (units (unk nown) date) unknown) (unknown) (no (unknown) (unknown) Allergies (units (unkn own) date) unknown) (unknown) (no (unknown) (unknown) [place], [place] (units ( unknown) date) [id number] unknown) (unknown) (no (unknown) (unknown) Anaphylaxis (units (un known) date) unknown) (unknown) (no (unknown) (unknown) Attending Dr: (units ( unknown) date) Lavelle Benavides D.O. unknown) (unknown) (no (unknown) (unknown) BMI 26.2 (units (unkno wn) date) unknown) (unknown) (no (unknown) (unknown) BP 118/78 (units (unkn own) date) unknown) (unknown) (no (unknown) (unknown) Blood Pressure (units (unknown) date) Location Lt unknown) brachial (unknown) (no (unknown) (unknown) Chronic back pain (units (unknown) date) unknown) (unknown) (no (unknown) (unknown) Confirmed (units (unkn own) date) 01/02/22] unknown) (unknown) (no (unknown) (unknown) : 1965 (units (unknown) date) Acct:[id number] unknown) (unknown) (no (unknown) (unknown) Degenerative disc (units (unknown) date) disease unknown) (unknown) (no (unknown) (unknown) Dept at (units (unkno wn) date) . unknown) (unknown) (no (unknown) (unknown) Documented By: (units (unknown) date) Lavelle Benavides D.O. unknown) 01/02/22 0842 (unknown) (no (unknown) (unknown) Draft (units (unkno wn) date) unknown) (unknown) (no (unknown) (unknown) Facet (units (unkno wn) date) arthropathy, unknown) lumbar (unknown) (no (unknown) (unknown) Family History (units (unknown) date) (Reviewed 03/23/21 unknown) @ 14:07 by Lavelle Benavides DO) (unknown) (no (unknown) (unknown) Footdrop (units (unkno wn) date) unknown) (unknown) (no (unknown) (unknown) Gait instability (units (unknown) date) unknown) (unknown) (no (unknown) (unknown) Height 5 ft 7 in (units (unknown) date) unknown) (unknown) (no (unknown) (unknown) Hepatic steatosis (units (unknown) date) unknown) (unknown) (no (unknown) (unknown) Herniated nucleus (units (unknown) date) pulposus, L4-5 unknown) (unknown) (no (unknown) (unknown) History of (units (unk nown) date) colostomy reversal unknown) (unknown) (no (unknown) (unknown) IT STARTED COMING (units (unknown) date) BACK BILATERAL unknown) SPINE (unknown) (no (unknown) (unknown) Intake Clinical (units (unknown) date) Staff unknown) (unknown) (no (unknown) (unknown) Intake Note: (units (u nknown) date) unknown) (unknown) (no (unknown) (unknown) Intake performed (units (unknown) date) by: Janis Trotter unknown) (unknown) (no (unknown) (unknown) Intake (units (unkno wn) date) unknown) (unknown) (no (unknown) (unknown) Is patient in (units ( unknown) date) pain?: Yes (HERE unknown) FOR LBP BILATERAL) Pain scale (1-10): 5 (unknown) (no (unknown) (unknown) Loc: PAIN (units (unkn own) date) unknown) (unknown) (no (unknown) (unknown) Medical History (units (unknown) date) unknown) (unknown) (no (unknown) (unknown) Medications (units (un known) date) unknown) (unknown) (no (unknown) (unknown) Melanotic stools (units (unknown) date) unknown) (unknown) (no (unknown) (unknown) Other No (units (unkno wn) date) pertinent family unknown) history in first degree relatives (unknown) (no (unknown) (unknown) Oxygen Delivery (units (unknown) date) Method room air unknown) (unknown) (no (unknown) (unknown) PFSH (units (unkno wn) date) unknown) (unknown) (no (unknown) (unknown) Pain Scale (units (unk nown) date) unknown) (unknown) (no (unknown) (unknown) Pain Visit (units (unk nown) date) unknown) (unknown) (no (unknown) (unknown) Patient: (units (unkno wn) date) Harrison Banerjee unknown) MR#: [id number] (unknown) (no (unknown) (unknown) Penicillins (units (un known) date) Allergy (Severe, unknown) Verified 01/02/22 08:42) (unknown) (no (unknown) (unknown) Position Sitting (units (unknown) date) unknown) (unknown) (no (unknown) (unknown) Pulse 78 (units (unkno wn) date) unknown) (unknown) (no (unknown) (unknown) Pulse Oximetry (units (unknown) date) (%) 98 unknown) (unknown) (no (unknown) (unknown) Pulse Source (units (u nknown) date) Monitor unknown) (unknown) (no (unknown) (unknown) RUQ pain (units (unkno wn) date) unknown) (unknown) (no (unknown) (unknown) Reason For Visit (units (unknown) date) unknown) (unknown) (no (unknown) (unknown) Rectal pain (units (un known) date) unknown) (unknown) (no (unknown) (unknown) Signed By: (units (unk nown) date) unknown) (unknown) (no (unknown) (unknown) Smoker (units (unkno wn) date) unknown) (unknown) (no (unknown) (unknown) Smoking Status: (units (unknown) date) Current every day unknown) smoker (unknown) (no (unknown) (unknown) Social History (units (unknown) date) unknown) (unknown) (no (unknown) (unknown) Status post (units (un known) date) cholecystectomy unknown) (unknown) (no (unknown) (unknown) Status post (units (un known) date) exploratory unknown) laparotomy (unknown) (no (unknown) (unknown) Status post (units (un known) date) rotator cuff unknown) repair (unknown) (no (unknown) (unknown) Surgical History (units (unknown) date) (Reviewed 03/23/21 unknown) @ 14:07 by Lavelle Benavides DO) (unknown) (no (unknown) (unknown) Temp 98.5 F (units (un known) date) unknown) (unknown) (no (unknown) (unknown) Temp Source (units (un known) date) Temporal Artery unknown) Scan (unknown) (no (unknown) (unknown) [facility] ([facility] ([facility] unknown) (unknown) (no (unknown) (unknown) This note may (units ( unknown) date) have been all or unknown) partially generated using voice recognition (unknown) (no (unknown) (unknown) Tobacco + (units (unkn own) date) Substance Use unknown) (unknown) (no (unknown) (unknown) Tobacco Status (units (unknown) date) unknown) (unknown) (no (unknown) (unknown) Visit Reasons: FU (units (unknown) date) L spine, LUMBAR unknown) SPINE (unknown) (no (unknown) (unknown) Vitals (units (unkno wn) date) unknown) (unknown) (no (unknown) (unknown) Weight 167 lb 4 (units (unknown) date) oz unknown) (unknown) (no (unknown) (unknown) [Rx Confirmed (units ( unknown) date) 01/02/22] unknown) (unknown) (no (unknown) (unknown) alcohol intake: (units (unknown) date) current unknown) (unknown) (no (unknown) (unknown) celecoxib 200 mg (units (unknown) date) capsule See Rx unknown) Instructions .Route .COMPLEX #90 caps 03/23/21 (unknown) (no (unknown) (unknown) cyclobenzaprine (units (unknown) date) 10 mg tablet 10 mg unknown) PO TID PRN Back Pain #90 tabs 11/22/18 [Rx (unknown) (no (unknown) (unknown) have occurred. If (units (unknown) date) there are any unknown) questions, please contact the Medical Records (unknown) (no (unknown) (unknown) household (units (unkn own) date) members: spouse unknown) (unknown) (no (unknown) (unknown) hydrocodone 5 (units ( unknown) date) mg-acetaminophen unknown) 325 mg tablet 1 tab PO Q6H PRN 03/23/21 [History (unknown) (no (unknown) (unknown) marital status: (units (unknown) date) unknown) (unknown) (no (unknown) (unknown) may occur. (units (unk nown) date) Occasional unknown) wrong-word or 'sound-alike' substitutions may have (unknown) (no (unknown) (unknown) occurred due to (units (unknown) date) the inherent unknown) limitations of voice recognition software. Please (unknown) (no (unknown) (unknown) omeprazole 20 mg (units (unknown) date) capsule,delayed unknown) release 20 mg PO DAILY 09/22/20 [History (unknown) (no (unknown) (unknown) quetiapine 100 mg (units (unknown) date) tablet 100 mg PO unknown) BEDTIME 01/02/22 [History Confirmed 01/02/22] (unknown) (no (unknown) (unknown) read the note (units ( unknown) date) carefully and unknown) recognize, using context, where these substitutions (unknown) (no (unknown) (unknown) software. 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 (unknown) (no (unknown) (unknown) substance use (units ( unknown) date) type: does not use unknown) Result panel 3 (unknown) (no (unknown) (unknown) (no value) (units (unk nown) date) unknown) (unknown) (no (unknown) (unknown) [id number] (units (unkno wn) date) unknown) (unknown) (no (unknown) (unknown) 01/02/22 (units (unkno wn) date) unknown) (unknown) (no (unknown) (unknown) 09:03 (units (unkno wn) date) unknown) (unknown) (no (unknown) (unknown) Accompanied by: (units (unknown) date) Self / Same As unknown) Patient (unknown) (no (unknown) (unknown) Age/Sex: 56 / M (units (unknown) date) Date of Service: unknown) (unknown) (no (unknown) (unknown) Alcoholism (units (unk nown) date) unknown) (unknown) (no (unknown) (unknown) All other systems (units (unknown) date) reviewed and are unknown) unremarkable except as noted in HPI. (unknown) (no (unknown) (unknown) Allergies (units (unkn own) date) unknown) (unknown) (no (unknown) (unknown) [place] [id number] (unit s (unknown) date) unknown) (unknown) (no (unknown) (unknown) Anaphylaxis (units (un known) date) unknown) (unknown) (no (unknown) (unknown) Assessment + Plan (units (unknown) date) unknown) (unknown) (no (unknown) (unknown) Attending Dr: (units ( unknown) date) Lavelle Benavides D.O. unknown) (unknown) (no (unknown) (unknown) BMI 26.2 (units (unkno wn) date) unknown) (unknown) (no (unknown) (unknown) BP 118/78 (units (unkn own) date) unknown) (unknown) (no (unknown) (unknown) Blood Pressure (units (unknown) date) Location Lt brachial unknown) (unknown) (no (unknown) (unknown) Chief Complaint (units (unknown) date) unknown) (unknown) (no (unknown) (unknown) Chief Complaint: (units (unknown) date) Bilateral axial low unknown) back pain (unknown) (no (unknown) (unknown) Chronic back pain (units (unknown) date) unknown) (unknown) (no (unknown) (unknown) Confirmed 01/02/22] (unit s (unknown) date) unknown) (unknown) (no (unknown) (unknown) : 1965 (units (unknown) date) Acct:[id number] unknown) (unknown) (no (unknown) (unknown) DTR's symmetric. (units (unknown) date) unknown) (unknown) (no (unknown) (unknown) Degenerative disc (units (unknown) date) disease unknown) (unknown) (no (unknown) (unknown) Denies recent (units ( unknown) date) trauma, fever or unknown) weight loss of unknown origin, immunocompromise (unknown) (no (unknown) (unknown) Dept at (units (unkno wn) date) . unknown) (unknown) (no (unknown) (unknown) Documented By: (units (unknown) date) Lavelle Benavides D.O. unknown) 01/02/22 0842 (unknown) (no (unknown) (unknown) Draft (units (unkno wn) date) unknown) (unknown) (no (unknown) (unknown) Endorses remote (units (unknown) date) history of trauma unknown) (unknown) (no (unknown) (unknown) Exam Narrative (units (unknown) date) unknown) (unknown) (no (unknown) (unknown) Exam Narrative: (units (unknown) date) unknown) (unknown) (no (unknown) (unknown) Exam (units (unkno wn) date) unknown) (unknown) (no (unknown) (unknown) Facet arthropathy, (units (unknown) date) lumbar unknown) (unknown) (no (unknown) (unknown) Family History (units (unknown) date) (Reviewed 01/02/22 @ unknown) 09:47 by Lavelle Benavides DO) (unknown) (no (unknown) (unknown) Footdrop (units (unkno wn) date) unknown) (unknown) (no (unknown) (unknown) Gait instability (units (unknown) date) unknown) (unknown) (no (unknown) (unknown) Gait: Full (units (unk nown) date) weightbearing. No unknown) assistive device. Stooped Gait Posture due to (unknown) (no (unknown) (unknown) General: The (units (u nknown) date) patient is in no unknown) obvious distress. Normal affect. Fully (unknown) (no (unknown) (unknown) HPI (units (unkno wn) date) unknown) (unknown) (no (unknown) (unknown) Height 5 ft 7 in (units (unknown) date) unknown) (unknown) (no (unknown) (unknown) Hepatic steatosis (units (unknown) date) unknown) (unknown) (no (unknown) (unknown) Herniated nucleus (units (unknown) date) pulposus, L4-5 unknown) (unknown) (no (unknown) (unknown) History of (units (unk nown) date) colostomy reversal unknown) (unknown) (no (unknown) (unknown) IT STARTED COMING (units (unknown) date) BACK BILATERAL SPINE unknown) (unknown) (no (unknown) (unknown) Intake Clinical (units (unknown) date) Staff unknown) (unknown) (no (unknown) (unknown) Intake Note: (units (u nknown) date) unknown) (unknown) (no (unknown) (unknown) Intake performed (units (unknown) date) by: Janis Trotter unknown) (unknown) (no (unknown) (unknown) Intake (units (unkno wn) date) unknown) (unknown) (no (unknown) (unknown) Is patient in (units ( unknown) date) pain?: Yes (HERE FOR unknown) LBP BILATERAL) Pain scale (1-10): 5 (unknown) (no (unknown) (unknown) Left Lower (units (unk nown) date) Extremity: No edema, unknown) joint effusion or atrophy. tenderness over the (unknown) (no (unknown) (unknown) Left Upper (units (unk nown) date) Extremity: Left unknown) upper extremity exam shows grossly normal alignment, (unknown) (no (unknown) (unknown) Loc: PAIN (units (unkn own) date) unknown) (unknown) (no (unknown) (unknown) MSK: System (units (un known) date) reviewed and no unknown) additional complaints, except as documented. (unknown) (no (unknown) (unknown) Medical History (units (unknown) date) unknown) (unknown) (no (unknown) (unknown) Medications (units (un known) date) unknown) (unknown) (no (unknown) (unknown) Melanotic stools (units (unknown) date) unknown) (unknown) (no (unknown) (unknown) Neuro: System (units ( unknown) date) reviewed and no unknown) additional complaints, except as documented. (unknown) (no (unknown) (unknown) Neurologic: (units (un known) date) Sensation is grossly unknown) intact to light touch throughout the upper and (unknown) (no (unknown) (unknown) Orders (units (unkno wn) date) unknown) (unknown) (no (unknown) (unknown) Orders: (units (unkno wn) date) unknown) (unknown) (no (unknown) (unknown) Other No pertinent (units (unknown) date) family history in unknown) first degree relatives (unknown) (no (unknown) (unknown) Oxygen Delivery (units (unknown) date) Method room air unknown) (unknown) (no (unknown) (unknown) PAIN l/s facet (units ( unknown) date) inj/blk 1st [place] unknown) 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 (unknown) (no (unknown) (unknown) PFSH (units (unkno wn) date) unknown) (unknown) (no (unknown) (unknown) Pain Scale (units (unk nown) date) unknown) (unknown) (no (unknown) (unknown) Pain Visit (units (unk nown) date) unknown) (unknown) (no (unknown) (unknown) Patient: (units (unkno wn) date) Harrison Banerjee MR#: unknown) M00 (unknown) (no (unknown) (unknown) Penicillins Allergy (unit s (unknown) date) (Severe, Verified unknown) 01/02/22 08:42) (unknown) (no (unknown) (unknown) Position Sitting (units (unknown) date) unknown) (unknown) (no (unknown) (unknown) Pulse 78 (units (unkno wn) date) unknown) (unknown) (no (unknown) (unknown) Pulse Oximetry (%) (units (unknown) date) 98 unknown) (unknown) (no (unknown) (unknown) Pulse Source (units (u nknown) date) Monitor unknown) (unknown) (no (unknown) (unknown) ROS Narrative (units ( unknown) date) unknown) (unknown) (no (unknown) (unknown) ROS Narrative: (units (unknown) date) unknown) (unknown) (no (unknown) (unknown) ROS (units (unkno wn) date) unknown) (unknown) (no (unknown) (unknown) RUQ pain (units (unkno wn) date) unknown) (unknown) (no (unknown) (unknown) Reason For Visit (units (unknown) date) unknown) (unknown) (no (unknown) (unknown) Rectal pain (units (un known) date) unknown) (unknown) (no (unknown) (unknown) Right Lower (units (un known) date) Extremity: No edema, unknown) effusion or atrophy. tenderness over the (unknown) (no (unknown) (unknown) Right Upper (units (un known) date) Extremity: Right unknown) upper extremity exam shows grossly normal (unknown) (no (unknown) (unknown) Signed By: (units (unk nown) date) unknown) (unknown) (no (unknown) (unknown) Skin: No (units (unkno wn) date) significant skin unknown) lesions are noted. (unknown) (no (unknown) (unknown) Smoker (units (unkno wn) date) unknown) (unknown) (no (unknown) (unknown) Smoking Status: (units (unknown) date) Current every day unknown) smoker (unknown) (no (unknown) (unknown) Social History (units (unknown) date) unknown) (unknown) (no (unknown) (unknown) Spine: Cervical (units (unknown) date) spine ROM unknown) functional. Lumbar spine ROM was reduced in all (unknown) (no (unknown) (unknown) Status post (units (un known) date) cholecystectomy unknown) (unknown) (no (unknown) (unknown) Status post (units (un known) date) exploratory unknown) laparotomy (unknown) (no (unknown) (unknown) Status post rotator (unit s (unknown) date) cuff repair unknown) (unknown) (no (unknown) (unknown) Surgical History (units (unknown) date) (Reviewed 01/02/22 @ unknown) 09:47 by Lavelle Benavides DO) (unknown) (no (unknown) (unknown) Temp 98.5 F (units (un known) date) unknown) (unknown) (no (unknown) (unknown) Temp Source (units (un known) date) Temporal Artery Scan unknown) (unknown) (no (unknown) (unknown) [facility] (unit s (unknown) date) Management unknown) (unknown) (no (unknown) (unknown) This note may have (units (unknown) date) been all or unknown) partially generated using voice recognition (unknown) (no (unknown) (unknown) Tobacco + Substance (unit s (unknown) date) Use unknown) (unknown) (no (unknown) (unknown) Tobacco Status (units (unknown) date) unknown) (unknown) (no (unknown) (unknown) Visit Reasons: FU L (unit s (unknown) date) spine, LUMBAR SPINE unknown) (unknown) (no (unknown) (unknown) Vitals (units (unkno wn) date) unknown) (unknown) (no (unknown) (unknown) Weight 167 lb 4 oz (units (unknown) date) unknown) (unknown) (no (unknown) (unknown) [Rx Confirmed (units ( unknown) date) 01/02/22] unknown) (unknown) (no (unknown) (unknown) alcohol intake: (units (unknown) date) current unknown) (unknown) (no (unknown) (unknown) alignment, range of (unit s (unknown) date) motion, strength and unknown) stability with no swelling, atrophy or (unknown) (no (unknown) (unknown) anesthesia, changes (unit s (unknown) date) in bowel or bladder unknown) function, or a focal neurological (unknown) (no (unknown) (unknown) axial LBP (units (unkn own) date) unknown) (unknown) (no (unknown) (unknown) celecoxib 200 mg (units (unknown) date) capsule See Rx unknown) Instructions .Route .COMPLEX #90 caps 03/23/21 (unknown) (no (unknown) (unknown) cyclobenzaprine 10 (units (unknown) date) mg tablet 10 mg PO unknown) TID PRN Back Pain #90 tabs 11/22/18 [Rx (unknown) (no (unknown) (unknown) deficit with (units (u nknown) date) progressive or unknown) disabling symptoms. (unknown) (no (unknown) (unknown) effusion. (units (unkn own) date) unknown) (unknown) (no (unknown) (unknown) greater (units (unkno wn) date) trochanteric region unknown) (unknown) (no (unknown) (unknown) greater (units (unkno wn) date) trochanteric region. unknown) (unknown) (no (unknown) (unknown) have occurred. If (units (unknown) date) there are any unknown) questions, please contact the Medical Records (unknown) (no (unknown) (unknown) household members: (units (unknown) date) spouse unknown) (unknown) (no (unknown) (unknown) hydrocodone 5 (units ( unknown) date) mg-acetaminophen 325 unknown) mg tablet 1 tab PO Q6H PRN 03/23/21 [History (unknown) (no (unknown) (unknown) increased tenderness (unit s (unknown) date) with axial loading unknown) and extension based maneuvers tenderness (unknown) (no (unknown) (unknown) intravenous drug (units (unknown) date) use, sustained unknown) glucocorticoid use, osteoporosis, saddle (unknown) (no (unknown) (unknown) lower extremities. (units (unknown) date) motor 5/5 all LE unknown) muscle groups. Coordination appears normal. (unknown) (no (unknown) (unknown) marital status: (units (unknown) date) unknown) (unknown) (no (unknown) (unknown) may occur. (units (unk nown) date) Occasional unknown) wrong-word or 'sound-alike' substitutions may have (unknown) (no (unknown) (unknown) occurred due to the (unit s (unknown) date) inherent limitations unknown) of voice recognition software. Please (unknown) (no (unknown) (unknown) omeprazole 20 mg (units (unknown) date) capsule,delayed unknown) release 20 mg PO DAILY 09/22/20 [History (unknown) (no (unknown) (unknown) or (units (unkno wn) date) immunosuppressive unknown) therapy, previous or current cancer diagnosis, history of (unknown) (no (unknown) (unknown) oriented. (units (unkn own) date) unknown) (unknown) (no (unknown) (unknown) planes. On (units (unk nown) date) palpation, there is unknown) tenderness over the spinous processes. With (unknown) (no (unknown) (unknown) provocative (units (unk nown) date) maneuvers including unknown) sacra shear test as well as pelvic obliquity are (unknown) (no (unknown) (unknown) quetiapine 100 mg (units (unknown) date) tablet 100 mg PO unknown) BEDTIME 01/02/22 [History Confirmed 01/02/22] (unknown) (no (unknown) (unknown) radiculopathy, (units (unknown) date) lumbar region unknown) (unknown) (no (unknown) (unknown) range of motion, (units (unknown) date) strength and unknown) stability with no swelling, atrophy or effusion. (unknown) (no (unknown) (unknown) read the note (units ( unknown) date) carefully and unknown) recognize, using context, where these substitutions (unknown) (no (unknown) (unknown) software. 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 Sacral (unknown) (no (unknown) (unknown) within normal (units ( unknown) date) limits. unknown) Result panel 4 (unknown) (no (unknown) (unknown) (no value) (units (unk nown) date) unknown) (unknown) (no (unknown) (unknown) (1) Facet (units (unkn own) date) arthropathy, lumbar: unknown) (unknown) (no (unknown) (unknown) (2) Herniated (units ( unknown) date) nucleus pulposus, unknown) L4-5: (unknown) (no (unknown) (unknown) [id number] (units (unkno wn) date) unknown) (unknown) (no (unknown) (unknown) 01/02/22 0955 (units ( unknown) date) unknown) (unknown) (no (unknown) (unknown) 01/02/22 (units (unkno wn) date) unknown) (unknown) (no (unknown) (unknown) 09:03 (units (unkno wn) date) unknown) (unknown) (no (unknown) (unknown) 1. Slightly (units (un known) date) increased disc unknown) desiccation and height loss of L1-L2 when compared (unknown) (no (unknown) (unknown) 12:35 (units (unkno wn) date) unknown) (unknown) (no (unknown) (unknown) 2. Unchanged (units (u nknown) date) posterior annulus unknown) tear at L1-L2 and L4-L5. (unknown) (no (unknown) (unknown) 3. Mild canal (units (u nknown) date) stenosis unknown) redemonstrated at L4-5 unchanged from the prior study. No (unknown) (no (unknown) (unknown) ACCESSION#: (units (un known) date) [id number] EXAM unknown) DATE: 01/04/2019 11:12 (unknown) (no (unknown) (unknown) ACCESSION#: (units (un known) date) [id number] EXAM unknown) DATE: 06/08/2019 (unknown) (no (unknown) (unknown) Accompanied by: (units (unknown) date) Self / Same As unknown) Patient (unknown) (no (unknown) (unknown) Age/Sex: 56 / M (units (unknown) date) Date of Service: unknown) (unknown) (no (unknown) (unknown) Alcoholism (units (unk nown) date) unknown) (unknown) (no (unknown) (unknown) All other systems (units (unknown) date) reviewed and are unknown) unremarkable except as noted in HPI. (unknown) (no (unknown) (unknown) All the questions (units (unknown) date) were answered to the unknown) best my ability they are in agreement (unknown) (no (unknown) (unknown) Allergies (units (unkn own) date) unknown) (unknown) (no (unknown) (unknown) OSEAS [place] [id number] (unit s (unknown) date) unknown) (unknown) (no (unknown) (unknown) Anaphylaxis (units (un known) date) unknown) (unknown) (no (unknown) (unknown) Approved by: Mic (units (unknown) date) Yael Barnett M.D. on unknown) 01/04/2019 at 14:33 (unknown) (no (unknown) (unknown) Approved by: Martha (units (unknown) date) Lulu Whitman on unknown) 06/09/2019 at 9:44 (unknown) (no (unknown) (unknown) Assessment + Plan (units (unknown) date) unknown) (unknown) (no (unknown) (unknown) Attending Dr: (units ( unknown) date) Lavelle Benavides D.O. unknown) (unknown) (no (unknown) (unknown) BMI 26.2 (units (unkno wn) date) unknown) (unknown) (no (unknown) (unknown) BP 118/78 (units (unkn own) date) unknown) (unknown) (no (unknown) (unknown) Blood Pressure (units (unknown) date) Location Lt brachial unknown) (unknown) (no (unknown) (unknown) Bones: 5 (units (unkno wn) date) coe-bpv-niakjor unknown) vertebrae are present. There is normal bony alignment. (unknown) (no (unknown) (unknown) COMPARISON: [place] (units (unknown) date) [facility], MR, MR unknown) LUMBAR SPINE WO CON, 01/04/2019, 10:56. (unknown) (no (unknown) (unknown) CONTRAST MEDIA: (units (unknown) date) STATION ID: [id number] unknown) (unknown) (no (unknown) (unknown) CONTRAST MEDIA: (units (unknown) date) STATION ID: [id number] unknown) (unknown) (no (unknown) (unknown) Chief Complaint (units (unknown) date) unknown) (unknown) (no (unknown) (unknown) Chief Complaint: (units (unknown) date) Bilateral axial low unknown) back pain (unknown) (no (unknown) (unknown) Cholecystectomy (units (unknown) date) clips are seen. unknown) (unknown) (no (unknown) (unknown) Chronic back pain (units (unknown) date) unknown) (unknown) (no (unknown) (unknown) Confirmed 01/02/22] (unit s (unknown) date) unknown) (unknown) (no (unknown) (unknown) : 1965 (units (unknown) date) Acct:[id number] unknown) (unknown) (no (unknown) (unknown) DTR's symmetric. (units (unknown) date) unknown) (unknown) (no (unknown) (unknown) Degenerative disc (units (unknown) date) disease unknown) (unknown) (no (unknown) (unknown) Denies recent (units ( unknown) date) trauma, fever or unknown) weight loss of unknown origin, immunocompromise (unknown) (no (unknown) (unknown) Dept at (units (unkno wn) date) . unknown) (unknown) (no (unknown) (unknown) Details: (units (unkno wn) date) unknown) (unknown) (no (unknown) (unknown) Dictated by: Mic (units (unknown) date) Yael Barnett M.D. on unknown) 01/04/2019 at 14:31 (unknown) (no (unknown) (unknown) Dictated by: Martha (units (unknown) date) Lulu Whitman on unknown) 06/09/2019 at 9:34 (unknown) (no (unknown) (unknown) Documented By: (units (unknown) date) Lavelle BenavidesOMercedez unknown) 01/02/22 0842 (unknown) (no (unknown) (unknown) Endorses remote (units (unknown) date) history of trauma unknown) (unknown) (no (unknown) (unknown) Exam Narrative (units (unknown) date) unknown) (unknown) (no (unknown) (unknown) Exam Narrative: (units (unknown) date) unknown) (unknown) (no (unknown) (unknown) Exam (units (unkno wn) date) unknown) (unknown) (no (unknown) (unknown) FINDINGS: (units (unkn own) date) unknown) (unknown) (no (unknown) (unknown) FLUORO TIME: (units (u nknown) date) unknown) (unknown) (no (unknown) (unknown) Facet arthropathy, (units (unknown) date) lumbar unknown) (unknown) (no (unknown) (unknown) Family History (units (unknown) date) (Reviewed 01/02/22 @ unknown) 09:47 by Lavelle Benavides DO) (unknown) (no (unknown) (unknown) Following insurance (unit s (unknown) date) approval. I will unknown) perform diagnostic medial branch blocks of (unknown) (no (unknown) (unknown) [place] (units (unkno wn) date) unknown) (unknown) (no (unknown) (unknown) Gait instability (units (unknown) date) unknown) (unknown) (no (unknown) (unknown) Gait: Full (units (unk nown) date) weightbearing. No unknown) assistive device. Stooped Gait Posture due to (unknown) (no (unknown) (unknown) General: The (units (u nknown) date) patient is in no unknown) obvious distress. Normal affect. Fully (unknown) (no (unknown) (unknown) HPI (units (unkno wn) date) unknown) (unknown) (no (unknown) (unknown) He has had return (units (unknown) date) of symptoms unknown) approximately 3 weeks ago with mowing his lawn. (unknown) (no (unknown) (unknown) He reports he has (units (unknown) date) been attempting his unknown) home exercise program as well as the use (unknown) (no (unknown) (unknown) He reports (units (unk nown) date) otherwise feeling unknown) well maintain the Covid19 social restrictions (unknown) (no (unknown) (unknown) Height 5 ft 7 in (units (unknown) date) unknown) (unknown) (no (unknown) (unknown) Hepatic steatosis (units (unknown) date) unknown) (unknown) (no (unknown) (unknown) Herniated nucleus (units (unknown) date) pulposus, L4-5 unknown) (unknown) (no (unknown) (unknown) History of (units (unk nown) date) colostomy reversal unknown) (unknown) (no (unknown) (unknown) Hospital, CR, XR (units (unknown) date) HIP W PEL IF DONE unknown) [place] 3TO4V, 01/04/2019, 11:14. (unknown) (no (unknown) (unknown) IMPRESSION: Lower (units (unknown) date) lumbar spine facet unknown) arthropathy seen by plain film. (unknown) (no (unknown) (unknown) IMPRESSION: (units (un known) date) unknown) (unknown) (no (unknown) (unknown) INDICATIONS: lumbar (unit s (unknown) date) pain with unknown) radiculopathy (unknown) (no (unknown) (unknown) IT STARTED COMING (units (unknown) date) BACK BILATERAL SPINE unknown) (unknown) (no (unknown) (unknown) Informed consent was (unit s (unknown) date) obtained today unknown) without guarantees or assurances of complete (unknown) (no (unknown) (unknown) Intake Clinical (units (unknown) date) Staff unknown) (unknown) (no (unknown) (unknown) Intake Note: (units (u nknown) date) unknown) (unknown) (no (unknown) (unknown) Intake performed (units (unknown) date) by: Janis Trotter unknown) (unknown) (no (unknown) (unknown) Intake (units (unkno wn) date) unknown) (unknown) (no (unknown) (unknown) Is patient in (units ( unknown) date) pain?: Yes (HERE FOR unknown) LBP BILATERAL) Pain scale (1-10): 5 (unknown) (no (unknown) (unknown) [place] (units (unkno wn) date) unknown) (unknown) (no (unknown) (unknown) Harrison and I did (units (unknown) date) review at length his unknown) underlying pathology with his lumbar facet (unknown) (no (unknown) (unknown) Harrison presents today (units (unknown) date) for further unknown) evaluation treatment of return of axial low back (unknown) (no (unknown) (unknown) L4-L5: Mild disc (units (unknown) date) desiccation and unknown) height loss similar in extent to the prior (unknown) (no (unknown) (unknown) L5-S1: Mild disc (units (unknown) date) desiccation and unknown) height loss. Posterior broad-based disc bulge. (unknown) (no (unknown) (unknown) Left Lower (units (unk nown) date) Extremity: No edema, unknown) joint effusion or atrophy. tenderness over the (unknown) (no (unknown) (unknown) Left Upper (units (unk nown) date) Extremity: Left unknown) upper extremity exam shows grossly normal alignment, (unknown) (no (unknown) (unknown) Loc: PAIN (units (unkn own) date) unknown) (unknown) (no (unknown) (unknown) Lower lumbar spine (units (unknown) date) facet arthropathy is unknown) seen. (unknown) (no (unknown) (unknown) MODALITY: CR (units (u nknown) date) PATIENT TYPE: Out unknown) (unknown) (no (unknown) (unknown) MODALITY: MR (units (u nknown) date) PATIENT TYPE: Out unknown) (unknown) (no (unknown) (unknown) (units (unknown) date) ACCOUNT #: unknown) [id number] (unknown) (no (unknown) (unknown) (units (unknown) date) ACCOUNT #: unknown) [id number] (unknown) (no (unknown) (unknown) MSK: System (units (un known) date) reviewed and no unknown) additional complaints, except as documented. (unknown) (no (unknown) (unknown) Medical History (units (unknown) date) unknown) (unknown) (no (unknown) (unknown) Medications (units (un known) date) unknown) (unknown) (no (unknown) (unknown) Melanotic stools (units (unknown) date) unknown) (unknown) (no (unknown) (unknown) Moderate facet (units (unknown) date) ligamentum flavum unknown) hypertrophy. No canal stenosis. Mild bilateral (unknown) (no (unknown) (unknown) Neuro: System (units ( unknown) date) reviewed and no unknown) additional complaints, except as documented. (unknown) (no (unknown) (unknown) Neurologic: (units (un known) date) Sensation is grossly unknown) intact to light touch throughout the upper and (unknown) (no (unknown) (unknown) No vertebral (units (u nknown) date) unknown) (unknown) (no (unknown) (unknown) ORDMercedez VELÁSQUEZ: DONTRELL (units (unknown) date) COOPER DOMINGUEZ CC: unknown) LAYTON DON M.D. (unknown) (no (unknown) (unknown) ORDMercedez VELÁSQUEZ: MARCEL (units (unknown) date) Yael AGUILAR D.O. CC: unknown) UNSPECIFIED (unknown) (no (unknown) (unknown) Objective Data (units (unknown) date) unknown) (unknown) (no (unknown) (unknown) Objective Data: (units (unknown) date) unknown) (unknown) (no (unknown) (unknown) Orders (units (unkno wn) date) unknown) (unknown) (no (unknown) (unknown) Orders: (units (unkno wn) date) unknown) (unknown) (no (unknown) (unknown) Other No pertinent (units (unknown) date) family history in unknown) first degree relatives (unknown) (no (unknown) (unknown) Oxygen Delivery (units (unknown) date) Method room air unknown) (unknown) (no (unknown) (unknown) PAIN l/s facet (units ( unknown) date) inj/blk 1st [place] unknown) 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 unknown) : 1965 (unknown) (no (unknown) (unknown) PFSH (units (unkno wn) date) unknown) (unknown) (no (unknown) (unknown) PROCEDURE: XR (units ( unknown) date) LUMBAR SPINE 2-3V unknown) (unknown) (no (unknown) (unknown) Pain Scale (units (unk nown) date) unknown) (unknown) (no (unknown) (unknown) Pain Visit (units (unk nown) date) unknown) (unknown) (no (unknown) (unknown) Patient: (units (unkno wn) date) Harrison Banerjee MR#: unknown) M00 (unknown) (no (unknown) (unknown) [place] Allergy (unit s (unknown) date) (Severe, Verified unknown) 01/02/22 08:42) (unknown) (no (unknown) (unknown) Plan (units (unkno wn) date) unknown) (unknown) (no (unknown) (unknown) Position Sitting (units (unknown) date) unknown) (unknown) (no (unknown) (unknown) Pulse 78 (units (unkno wn) date) unknown) (unknown) (no (unknown) (unknown) Pulse Oximetry (%) (units (unknown) date) 98 unknown) (unknown) (no (unknown) (unknown) Pulse Source (units (u nknown) date) Monitor unknown) (unknown) (no (unknown) (unknown) ROS Narrative (units ( unknown) date) unknown) (unknown) (no (unknown) (unknown) ROS Narrative: (units (unknown) date) unknown) (unknown) (no (unknown) (unknown) ROS (units (unkno wn) date) unknown) (unknown) (no (unknown) (unknown) RUQ pain (units (unkno wn) date) unknown) (unknown) (no (unknown) (unknown) Reason For Visit (units (unknown) date) unknown) (unknown) (no (unknown) (unknown) Rectal pain (units (un known) date) unknown) (unknown) (no (unknown) (unknown) Right Lower (units (un known) date) Extremity: No edema, unknown) effusion or atrophy. tenderness over the (unknown) (no (unknown) (unknown) Right Upper (units (un known) date) Extremity: Right unknown) upper extremity exam shows grossly normal (unknown) (no (unknown) (unknown) S1 performed on (units (unknown) date) 03/17/2022 provided unknown) him with very good relief. He reports he (unknown) (no (unknown) (unknown) Signed By: (units (unk nown) date) <Electronically unknown) signed by Lavelle Benavides D.O.> (unknown) (no (unknown) (unknown) Signed (units (unkno wn) date) unknown) (unknown) (no (unknown) (unknown) Skin: No (units (unkno wn) date) significant skin unknown) lesions are noted. (unknown) (no (unknown) (unknown) Smoker (units (unkno wn) date) unknown) (unknown) (no (unknown) (unknown) Smoking Status: (units (unknown) date) Current every day unknown) smoker (unknown) (no (unknown) (unknown) Social History (units (unknown) date) unknown) (unknown) (no (unknown) (unknown) Soft tissues: (units ( unknown) date) Overlying bowel gas unknown) pattern is normal. No suspicious soft tissue (unknown) (no (unknown) (unknown) Spine: Cervical (units (unknown) date) spine ROM unknown) functional. Lumbar spine ROM was reduced in all (unknown) (no (unknown) (unknown) Status post (units (un known) date) cholecystectomy unknown) (unknown) (no (unknown) (unknown) Status post (units (un known) date) exploratory unknown) laparotomy (unknown) (no (unknown) (unknown) Status post rotator (unit s (unknown) date) cuff repair unknown) (unknown) (no (unknown) (unknown) Status: Acute (units ( unknown) date) unknown) (unknown) (no (unknown) (unknown) Surgical History (units (unknown) date) (Reviewed 01/02/22 @ unknown) 09:47 by Lavelle Benavides DO) (unknown) (no (unknown) (unknown) TECHNIQUE: 3 views (units (unknown) date) of the lumbar spine unknown) were acquired. (unknown) (no (unknown) (unknown) Temp 98.5 F (units (un known) date) unknown) (unknown) (no (unknown) (unknown) Temp Source (units (un known) date) Temporal Artery Scan unknown) (unknown) (no (unknown) (unknown) [facility] (unit s (unknown) date) Management unknown) (unknown) (no (unknown) (unknown) There is mild (units ( unknown) date) unknown) (unknown) (no (unknown) (unknown) This note may have (units (unknown) date) been all or unknown) partially generated using voice recognition (unknown) (no (unknown) (unknown) Tobacco + Substance (unit s (unknown) date) Use unknown) (unknown) (no (unknown) (unknown) Tobacco Status (units (unknown) date) unknown) (unknown) (no (unknown) (unknown) Visit Reasons: FU L (unit s (unknown) date) spine, LUMBAR SPINE unknown) (unknown) (no (unknown) (unknown) Vitals (units (unkno wn) date) unknown) (unknown) (no (unknown) (unknown) We did review the (units (unknown) date) above-stated unknown) procedure at length and verbal consent was (unknown) (no (unknown) (unknown) Weight 167 lb 4 oz (units (unknown) date) unknown) (unknown) (no (unknown) (unknown) [Rx Confirmed (units ( unknown) date) 01/02/22] unknown) (unknown) (no (unknown) (unknown) ablation may be (units (unknown) date) indicated. If two unknown) diagnostic medial branch blocks on two (unknown) (no (unknown) (unknown) above-stated plan. (units (unknown) date) unknown) (unknown) (no (unknown) (unknown) alcohol intake: (units (unknown) date) current unknown) (unknown) (no (unknown) (unknown) alignment, range of (unit s (unknown) date) motion, strength and unknown) stability with no swelling, atrophy or (unknown) (no (unknown) (unknown) anesthesia, changes (unit s (unknown) date) in bowel or bladder unknown) function, or a focal neurological (unknown) (no (unknown) (unknown) annular tear is (units (unknown) date) less conspicuous on unknown) the prior study but likely still present. (unknown) (no (unknown) (unknown) arthropathy L4-5 (units (unknown) date) and L5-S1. He did unknown) have resolution of his lumbar axial low back (unknown) (no (unknown) (unknown) at this time. We (units (unknown) date) discussed treatment unknown) options available to him will pursue (unknown) (no (unknown) (unknown) axial LBP (units (unkn own) date) unknown) (unknown) (no (unknown) (unknown) ay occur. (units (unkn own) date) Occasional unknown) wrong-word or 'sound-alike' substitutions may have (unknown) (no (unknown) (unknown) blocks is justified (unit s (unknown) date) by the following unknown) considerations. 1) the patient has had a (unknown) (no (unknown) (unknown) body compression (units (unknown) date) fractures. No unknown) suspicious bony lesions. The disc heights are (unknown) (no (unknown) (unknown) broad-based disc (units (unknown) date) bulge is present unknown) with moderate facet and ligamentum flavum (unknown) (no (unknown) (unknown) by improvement in (units (unknown) date) ROM and function, we unknown) would conclude that the tested joints are (unknown) (no (unknown) (unknown) calcifications. (units (unknown) date) unknown) (unknown) (no (unknown) (unknown) candidate for (units ( unknown) date) medial branch unknown) rhizotomy for long-term relief. (unknown) (no (unknown) (unknown) celecoxib 200 mg (units (unknown) date) capsule See Rx unknown) Instructions .Route .COMPLEX #90 caps 03/23/21 (unknown) (no (unknown) (unknown) cyclobenzaprine 10 (units (unknown) date) mg tablet 10 mg PO unknown) TID PRN Back Pain #90 tabs 11/22/18 [Rx (unknown) (no (unknown) (unknown) cyclobenzaprine as (units (unknown) date) well as Celebrex to unknown) try to find some relief. He reports he (unknown) (no (unknown) (unknown) deficit with (units (u nknown) date) progressive or unknown) disabling symptoms. (unknown) (no (unknown) (unknown) diagnostic medial (units (unknown) date) branch block unknown) provided substantial pain relief, radiofrequency (unknown) (no (unknown) (unknown) different occasions (units (unknown) date) lead to substantial unknown) pain relief, particularly if accompanied (unknown) (no (unknown) (unknown) does not like the (units (unknown) date) way that they make unknown) him feel. He reports the Celebrex provide (unknown) (no (unknown) (unknown) effusion. (units (unkn own) date) unknown) (unknown) (no (unknown) (unknown) epidural (units (unkno wn) date) lipomatosis. No unknown) neuroforaminal stenosis. (unknown) (no (unknown) (unknown) greater (units (unkno wn) date) trochanteric region unknown) (unknown) (no (unknown) (unknown) greater (units (unkno wn) date) trochanteric region. unknown) (unknown) (no (unknown) (unknown) had return of (units ( unknown) date) symptoms unknown) approximately 3 weeks ago when he was picking up (unknown) (no (unknown) (unknown) have occurred. If (units (unknown) date) there are any unknown) questions, please contact the Medical Records (unknown) (no (unknown) (unknown) history of at least (unit s (unknown) date) 3 months of moderate unknown) to sever pain with functional (unknown) (no (unknown) (unknown) household members: (units (unknown) date) spouse unknown) (unknown) (no (unknown) (unknown) hydrocodone 5 (units ( unknown) date) mg-acetaminophen 325 unknown) mg tablet 1 tab PO Q6H PRN 03/23/21 [History (unknown) (no (unknown) (unknown) hydrocodone as well (unit s (unknown) date) that he uses as unknown) needed. He reports no lower extremity (unknown) (no (unknown) (unknown) hypertrophy. There (units (unknown) date) is resultant mild unknown) canal stenosis. Previously visualized (unknown) (no (unknown) (unknown) impairment; 2) they (units (unknown) date) did not respond to unknown) conservative treatment efforts for longer (unknown) (no (unknown) (unknown) increased tenderness (unit s (unknown) date) with axial loading unknown) and extension based maneuvers tenderness (unknown) (no (unknown) (unknown) injury, stroke, (units (unknown) date) paralysis and unknown) and the patient elected to proceed. (unknown) (no (unknown) (unknown) intravenous drug (units (unknown) date) use, sustained unknown) glucocorticoid use, osteoporosis, saddle (unknown) (no (unknown) (unknown) likely the relevant (unit s (unknown) date) source of pain. Thus unknown) meeting the above criteria, (unknown) (no (unknown) (unknown) low back pain (units ( unknown) date) bilaterally since. unknown) He does report he has been using his (unknown) (no (unknown) (unknown) lower extremities. (units (unknown) date) motor 5/5 all LE unknown) muscle groups. Coordination appears normal. (unknown) (no (unknown) (unknown) marital status: (units (unknown) date) unknown) (unknown) (no (unknown) (unknown) medial branch (units ( unknown) date) blocks bilaterally unknown) L4-L5 and S1 as he may ultimately be a (unknown) (no (unknown) (unknown) neuroforaminal (units (unknown) date) narrowing. These unknown) findings are unchanged. (unknown) (no (unknown) (unknown) new canal stenosis (units (unknown) date) or significant unknown) foraminal stenosis. (unknown) (no (unknown) (unknown) obtained today, As (units (unknown) date) oral consent, we did unknown) review the risks of the above stated (unknown) (no (unknown) (unknown) occurred due to the (unit s (unknown) date) inherent limitations unknown) of voice recognition software. Please (unknown) (no (unknown) (unknown) of cyclobenzaprine (units (unknown) date) Celebrex and his unknown) hydrocodone. He persists with the above (unknown) (no (unknown) (unknown) omeprazole 20 mg (units (unknown) date) capsule,delayed unknown) release 20 mg PO DAILY 09/22/20 [History (unknown) (no (unknown) (unknown) or (units (unkno wn) date) immunosuppressive unknown) therapy, previous or current cancer diagnosis, history of (unknown) (no (unknown) (unknown) oriented. (units (unkn own) date) unknown) (unknown) (no (unknown) (unknown) pain with her (units ( unknown) date) previous facet unknown) mediated interventions bilaterally on 05/17/2021. (unknown) (no (unknown) (unknown) pain. He reports (units (unknown) date) her last facet joint unknown) injections performed bilaterally L4-5 L5 (unknown) (no (unknown) (unknown) paresthesias or (units (unknown) date) weakness at this unknown) time. (unknown) (no (unknown) (unknown) planes. On (units (unk nown) date) palpation, there is unknown) tenderness over the spinous processes. With (unknown) (no (unknown) (unknown) posterior (units (unkn own) date) unknown) (unknown) (no (unknown) (unknown) procedure including (units (unknown) date) not limited to unknown) bleeding, infection, allergic reaction, nerve (unknown) (no (unknown) (unknown) provocative (units (unk nown) date) maneuvers including unknown) sacra shear test as well as pelvic obliquity are (unknown) (no (unknown) (unknown) quetiapine 100 mg (units (unknown) date) tablet 100 mg PO unknown) BEDTIME 01/02/22 [History Confirmed 01/02/22] (unknown) (no (unknown) (unknown) radiculopathy, (units (unknown) date) lumbar region unknown) (unknown) (no (unknown) (unknown) radiofrequency (units (unknown) date) ablation may be unknown) indicated. (unknown) (no (unknown) (unknown) range of motion, (units (unknown) date) strength and unknown) stability with no swelling, atrophy or effusion. (unknown) (no (unknown) (unknown) read the note (units ( unknown) date) carefully and unknown) recognize, using context, where these substitutions (unknown) (no (unknown) (unknown) relief applied. (units (unknown) date) Will complete unknown) written consent on the day of the procedure. (unknown) (no (unknown) (unknown) software. 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 He does have (unknown) (no (unknown) (unknown) something and also (units (unknown) date) working on mowing unknown) his lawn. Reports he has had severe axial (unknown) (no (unknown) (unknown) stated (units (unkno wn) date) symptomatology would unknown) like to pursue further facet mediated interventions (unknown) (no (unknown) (unknown) study. Central (units (unknown) date) unknown) (unknown) (no (unknown) (unknown) substance use type: (unit s (unknown) date) does not use unknown) (unknown) (no (unknown) (unknown) than 3 months; 3) (units (unknown) date) the clinical unknown) characteristics involves primarily axial pain in (unknown) (no (unknown) (unknown) the absence of (units (unknown) date) clear radicular unknown) symptoms or other neurologic components; and 4) (unknown) (no (unknown) (unknown) the facet joints (units (unknown) date) bilateral L4, L5 and unknown) S1. For Harrison, performing the medial branch (unknown) (no (unknown) (unknown) the imaging does (units (unknown) date) not suggest another unknown) predominant source of pain. If the second (unknown) (no (unknown) (unknown) to palpation on (units (unknown) date) paraspinals.straight unknown) leg raising negative bilaterally. Sacral (unknown) (no (unknown) (unknown) well-preserved. (units (unknown) date) unknown) (unknown) (no (unknown) (unknown) with the prior MRI (units (unknown) date) dated 01/04/19. unknown) (unknown) (no (unknown) (unknown) within normal (units ( unknown) date) limits. unknown) (unknown) (no (unknown) (unknown) without cough fever (unit s (unknown) date) fatigue at this unknown) time. He has been fully vaccinated. Result panel 5 (unknown) (no (unknown) (unknown) (no value) (units (unk nown) date) unknown) (unknown) (no (unknown) (unknown) [id number] (units (unkno wn) date) unknown) (unknown) (no (unknown) (unknown) 02/09/22 (units (unkno wn) date) unknown) (unknown) (no (unknown) (unknown) 11:16. (units (unkno wn) date) unknown) (unknown) (no (unknown) (unknown) [address] [place] [address] (units (unknown) date) unknown) (unknown) (no (unknown) (unknown) Accession Number: (units (unknown) date) [id number] unknown) (unknown) (no (unknown) (unknown) Age/Sex: 56 / M (units (unknown) date) Date of Service: unknown) (unknown) (no (unknown) (unknown) [place] ID (units ( unknown) date) [id number] unknown) (unknown) (no (unknown) (unknown) Appropriate (units (un known) date) needle unknown) (unknown) (no (unknown) (unknown) Approved by: (units (u nknown) date) daniel Lemus) Lulu on 02/09/2022 at 17:55 (unknown) (no (unknown) (unknown) COMPARISON: (units (un known) date) [facility], unknown) XA, PAIN L/S FACET INJ/BLK [facility] [place], 05/17/2021, (unknown) (no (unknown) (unknown) : 1965 (units (unknown) date) Acct:[id number] unknown) (unknown) (no (unknown) (unknown) Dictated by: (units (u nknown) date) daniel Lemus) Lulu on 02/09/2022 at 17:54 (unknown) (no (unknown) (unknown) FINDINGS: (units (unkn own) date) Fluoroscopic spot unknown) filming was performed to verify placement of (unknown) (no (unknown) (unknown) IMPRESSION: (units (un known) date) Intraprocedural unknown) images within normal limits. (unknown) (no (unknown) (unknown) INDICATIONS: (units (u nknown) date) SPONDYLOSIS unknown) (unknown) (no (unknown) (unknown) [facility] (units (unknown) date) unknown) (unknown) (no (unknown) (unknown) Loc: RAD (units (unkno wn) date) unknown) (unknown) (no (unknown) (unknown) Ordering (units (unkno wn) date) Provider: unknown) Lavelle Benavides D.O. (unknown) (no (unknown) (unknown) PROCEDURE: PAIN (units (unknown) date) L/S FACET INJ/BLK unknown) 1ST [place] (unknown) (no (unknown) (unknown) Patient: (units (unkno wn) date) Harrison Banerjee unknown) MR#: [id number] (unknown) (no (unknown) (unknown) Procedure: PAIN (units (unknown) date) l/s facet inj/blk unknown) 1st [place] (unknown) (no (unknown) (unknown) Signed (units (unkno wn) date) unknown) (unknown) (no (unknown) (unknown) XRay Report (units (un known) date) unknown) (unknown) (no (unknown) (unknown) on both sides at (units (unknown) date) the L4, L5, and S1 unknown) levels, as labeled on the films. (unknown) (no (unknown) (unknown) placement was (units ( unknown) date) confirmed with unknown) injection of a small amount of iodinated contrast. (unknown) (no (unknown) (unknown) spinal needles (units (unknown) date) unknown) Result panel 6 (unknown) (no (unknown) (unknown) (no value) (units (unk nown) date) unknown) (unknown) (no (unknown) (unknown) [id number] (units (unkno wn) date) unknown) (unknown) (no (unknown) (unknown) 1. BILATERAL- L4, (units (unknown) date) L5 and S1 unknown) DIAGNOSTIC MB BLOCKS with LA Anesthetic (unknown) (no (unknown) (unknown) 02/09/22 1418 (units ( unknown) date) unknown) (unknown) (no (unknown) (unknown) 200 was injected, (units (unknown) date) confirming unknown) placement without vascular or intrathecal uptake. (unknown) (no (unknown) (unknown) After review of (units (unknown) date) previous unknown) anaesthesic history and IV conscious sedation the (unknown) (no (unknown) (unknown) Age/Sex: 56 / M (units (unknown) date) unknown) (unknown) (no (unknown) (unknown) An informed (units (un known) date) consent document unknown) was signed by the patient, witnessed by a nurse, (unknown) (no (unknown) (unknown) Complications: (units (unknown) date) none unknown) (unknown) (no (unknown) (unknown) DESCRIPTION OF (units (unknown) date) PROCEDURE unknown) (unknown) (no (unknown) (unknown) : 1965 (units (unknown) date) Acct:[id number] unknown) (unknown) (no (unknown) (unknown) Date of Service: (units (unknown) date) 02/09/22 unknown) (unknown) (no (unknown) (unknown) Date of procedure: (units (unknown) date) 02/09/22 unknown) (unknown) (no (unknown) (unknown) Date/Time/Diagnose (units (unknown) date) s unknown) (unknown) (no (unknown) (unknown) Fluoroscopically (units (unknown) date) guided, unknown) contrast-controlled bilateral L4, L5 and S1 medial (unknown) (no (unknown) (unknown) Following review (units (unknown) date) of allergy and unknown) review of potential side effects and (unknown) (no (unknown) (unknown) In the prone (units (u nknown) date) position, following unknown) sterile prep and drape of the lumbar region, (unknown) (no (unknown) (unknown) Indications: (units (u nknown) date) unknown) (unknown) (no (unknown) (unknown) [facility] (units (unknown) date) [address] [place] [address] unknown) [place] [address] (unknown) (no (unknown) (unknown) It has been a (units ( unknown) date) pleasure to assist unknown) in the diagnostic and therapeutic care of your (unknown) (no (unknown) (unknown) Harrison is referred (units (unknown) date) by Dr. Griffin for unknown) treatment of Bilateral Axial LBP. (unknown) (no (unknown) (unknown) POST OP (units (unkno wn) date) INSTRUCTIONS unknown) (unknown) (no (unknown) (unknown) Patient: (units (unkno wn) date) Harrison Banerjee unknown) MR#: [id number] (unknown) (no (unknown) (unknown) Physician: Lavelle (units (unknown) date) Kennedy unknown) (unknown) (no (unknown) (unknown) Post-procedure (units (unknown) date) diagnosis: same unknown) (unknown) (no (unknown) (unknown) Post-procedure, (units (unknown) date) the patient was unknown) monitored initiating provocative activities to (unknown) (no (unknown) (unknown) Pre-procedure (units ( unknown) date) diagnosis: 1. FACET unknown) ARTHROPATHY (unknown) (no (unknown) (unknown) Procedure Note (units (unknown) date) unknown) (unknown) (no (unknown) (unknown) Procedure Notes (units (unknown) date) unknown) (unknown) (no (unknown) (unknown) Procedure in (units (u nknown) date) detail + unknown) Post-procedure care: (unknown) (no (unknown) (unknown) Procedure: (units (unk nown) date) unknown) (unknown) (no (unknown) (unknown) Provider: (units (unkn own) date) Lavelle Benavides D.O. unknown) (unknown) (no (unknown) (unknown) Signed (units (unkno wn) date) By:<Electronically unknown) signed by Lavelle Benavides D.O.> (unknown) (no (unknown) (unknown) Subsequently then (units (unknown) date) 0.5cc of 0.5% unknown) Marcaine solution was injected at each of the (unknown) (no (unknown) (unknown) Subsequently then (units (unknown) date) a 22-gauge 3.5-inch unknown) spinal needle was atraumatically (unknown) (no (unknown) (unknown) The patient (units (un known) date) tolerated the unknown) procedure well without signs or symptoms of (unknown) (no (unknown) (unknown) The patient was (units (unknown) date) provided with a unknown) Pain Log to complete over the next several hours (unknown) (no (unknown) (unknown) Time of procedure: (units (unknown) date) 14:17 unknown) (unknown) (no (unknown) (unknown) Total Fluoroscopy (units (unknown) date) time (seconds): 15 unknown) (unknown) (no (unknown) (unknown) Total sedation (units (unknown) date) minutes: 16 unknown) (unknown) (no (unknown) (unknown) accomplished with (units (unknown) date) a combination of unknown) 4mg of Versed was administered by the RN (unknown) (no (unknown) (unknown) after DO order, (units (unknown) date) titrated to patient unknown) comfort during the course of the procedure (unknown) (no (unknown) (unknown) and placed in the (units (unknown) date) patient's chart. unknown) (unknown) (no (unknown) (unknown) and subsequent (units (unknown) date) days prior to the unknown) patient's follow up with the ordering (unknown) (no (unknown) (unknown) branch blocks with (units (unknown) date) 0.5cc of 0.5% unknown) Marcaine. (unknown) (no (unknown) (unknown) complications (units ( unknown) date) prior to transfer unknown) to the recovery area continued monitoring (unknown) (no (unknown) (unknown) complications, (units (unknown) date) including, but not unknown) necessarily limited to, infection, allergic (unknown) (no (unknown) (unknown) corresponding (units ( unknown) date) sites at the right unknown) L4, L5 and S1 medial branch locations. The (unknown) (no (unknown) (unknown) , the patient (units (unknown) date) indicated that the unknown) patient understood and agreed to proceed. (unknown) (no (unknown) (unknown) identical (units (unkn own) date) procedure was unknown) replicated on the left. (unknown) (no (unknown) (unknown) introduced and (units ( unknown) date) advanced under unknown) fluoroscopic guidance at each of the corresponding (unknown) (no (unknown) (unknown) measure the amount (units (unknown) date) of relief from unknown) block of the facetogenic pain. The patient (unknown) (no (unknown) (unknown) patient ID, (units (un known) date) procedure to be unknown) performed and site of procedure. IV sedation was (unknown) (no (unknown) (unknown) patient was deemed (units (unknown) date) safe to proceed unknown) with today's procedure with IV conscious (unknown) (no (unknown) (unknown) patient. (units (unkno wn) date) unknown) (unknown) (no (unknown) (unknown) physician for (units ( unknown) date) review and clinical unknown) correlation (unknown) (no (unknown) (unknown) physician. If the (units (unknown) date) patient has unknown) director of resource development relief to the solution applied, (unknown) (no (unknown) (unknown) ramus was (units (unkn own) date) identified unknown) fluoroscopically. Subsequently an anesthetic skin wheal (unknown) (no (unknown) (unknown) reaction, local (units (unknown) date) tissue breakdown, unknown) nerve injury, paralysis, stroke and possible (unknown) (no (unknown) (unknown) reported a VAS of (units (unknown) date) 7 prior to the unknown) procedure and a post-procedure VAS of 1. (unknown) (no (unknown) (unknown) sedation as ASA (units (unknown) date) class II unknown) designation. Safety time-out was performed to confirm (unknown) (no (unknown) (unknown) sites at the right (units (unknown) date) L4, L5 and S1 MB. unknown) After negative aspiration, 0.2cc of Isovue (unknown) (no (unknown) (unknown) the right L4, L5 (units (unknown) date) and S1 anatomical unknown) location of the medial branch of the dorsal (unknown) (no (unknown) (unknown) then they may be a (units (unknown) date) candidate for unknown) medial branch rhizotomy. The patient is aware, (unknown) (no (unknown) (unknown) using 1% lidocaine (units (unknown) date) solution was unknown) initiated at each of the anatomical spots. (unknown) (no (unknown) (unknown) was provided, once (units (unknown) date) again, with a Pain unknown) Log and will follow up with the referring (unknown) (no (unknown) (unknown) while the patient (units (unknown) date) remained responsive unknown) to all verbal commands (unknown) (no (unknown) (unknown) without incident. (units (unknown) date) unknown) Result panel 7 (unknown) (no (unknown) (unknown) (no value) (units (unk nown) date) unknown) (unknown) (no (unknown) (unknown) [id number] (units (unkno wn) date) unknown) (unknown) (no (unknown) (unknown) 1. No significant (units (unknown) date) changes compared unknown) to prior study from 2019. (unknown) (no (unknown) (unknown) 02/26/22 (units (unkno wn) date) unknown) (unknown) (no (unknown) (unknown) [address] [place] [address] (units (unknown) date) unknown) (unknown) (no (unknown) (unknown) 14:01. (units (unkno wn) date) unknown) (unknown) (no (unknown) (unknown) 2. There has been (units (unknown) date) slight progression unknown) of neural foraminal narrowing on the right (unknown) (no (unknown) (unknown) 3. Stable tiny (units (unknown) date) posterior annular unknown) tear L4-5. (unknown) (no (unknown) (unknown) Accession Number: (units (unknown) date) [id number] unknown) (unknown) (no (unknown) (unknown) Age/Sex: 56 / M (units (unknown) date) Date of Service: unknown) (unknown) (no (unknown) (unknown) Alignment and (units ( unknown) date) Curvature: There unknown) is normal bony alignment. No change compared (unknown) (no (unknown) (unknown) [place], [place] (units ( unknown) date) [id number] unknown) (unknown) (no (unknown) (unknown) Approved by: (units (u nknown) date) daniel Carlin) Lulu on 02/26/2022 at 13:55 (unknown) (no (unknown) (unknown) Bone Marrow: (units (u nknown) date) Marrow is of unknown) normal overall signal. No acute vertebral body (unknown) (no (unknown) (unknown) COMPARISON: (units (un known) date) [facility], unknown) XA, PAIN L/S FACET INJ/BLK 1ST [place], 02/09/2022, (unknown) (no (unknown) (unknown) : 1965 (units (unknown) date) Acct:[id number] unknown) (unknown) (no (unknown) (unknown) Dictated by: (units (u nknown) date) daniel CarlinLuc Lawson on 02/26/2022 at 13:36 (unknown) (no (unknown) (unknown) Discs: Chronic (units (unknown) date) and mild disc unknown) desiccation and height loss at L1-2. Disc (unknown) (no (unknown) (unknown) FINDINGS: (units (unkn own) date) unknown) (unknown) (no (unknown) (unknown) IMPRESSION: (units (un known) date) unknown) (unknown) (no (unknown) (unknown) INDICATIONS: (units (u nknown) date) Acute on Chronic unknown) LBP (unknown) (no (unknown) (unknown) Image quality: (units (unknown) date) Excellent. unknown) (unknown) (no (unknown) (unknown) [facility] (units (unknown) date) unknown) (unknown) (no (unknown) (unknown) [facility], (units (unknown) date) MR, MR LUMBAR unknown) SPINE WO CON, 06/08/2019, 12:35. (unknown) (no (unknown) (unknown) L1-L2: Minimal (units (unknown) date) circumferential unknown) disc osteophyte. No foraminal or central canal (unknown) (no (unknown) (unknown) L2-L3: Normal. (units (unknown) date) unknown) (unknown) (no (unknown) (unknown) L3-L4: Mild (units (un known) date) bilateral facet unknown) arthropathy. Minimal, stable circumferential disc (unknown) (no (unknown) (unknown) L4-L5: Mild to (units (unknown) date) moderate bilateral unknown) symmetric facet arthropathy and ligamentum (unknown) (no (unknown) (unknown) L5-S1: Mild to (units (unknown) date) moderate bilateral unknown) facet arthropathy. Minimal broad-based (unknown) (no (unknown) (unknown) Loc: MRI (units (unkno wn) date) unknown) (unknown) (no (unknown) (unknown) MR. (units (unkno wn) date) unknown) (unknown) (no (unknown) (unknown) Magnetic (units (unkno wn) date) Resonance Report unknown) (unknown) (no (unknown) (unknown) Noncontrast (units (un known) date) sagittal T1 spin unknown) echo and T2 fast echo, sagittal STIR, and T2 fast (unknown) (no (unknown) (unknown) Ordering (units (unkno wn) date) Provider: unknown) Lavelle Benavides D.O. (unknown) (no (unknown) (unknown) PROCEDURE: MR (units ( unknown) date) LUMBAR SPINE WO unknown) CON (unknown) (no (unknown) (unknown) Paraspinous Soft (units (unknown) date) Tissues: No unknown) paravertebral masses. No suspicious soft tissue (unknown) (no (unknown) (unknown) Patient: (units (unkno wn) date) Harrison Banerjee unknown) MR#: [id number] (unknown) (no (unknown) (unknown) Procedure: MR (units ( unknown) date) lumbar spine wo unknown) con (unknown) (no (unknown) (unknown) Signed (units (unkno wn) date) unknown) (unknown) (no (unknown) (unknown) Spinal Cord: (units (u nknown) date) Conus medullaris unknown) terminates at the T12-L1 level. Visualized cord (unknown) (no (unknown) (unknown) Stable compared (units (unknown) date) to prior. unknown) (unknown) (no (unknown) (unknown) T12-L1: Normal. (units (unknown) date) unknown) (unknown) (no (unknown) (unknown) TECHNIQUE: (units (unk nown) date) unknown) (unknown) (no (unknown) (unknown) abnormalities or (units (unknown) date) fluid collections. unknown) (unknown) (no (unknown) (unknown) annular tear. (units ( unknown) date) Mild, stable unknown) central canal stenosis, lateral recess narrowing, (unknown) (no (unknown) (unknown) at L5-S1 (units (unkno wn) date) unknown) (unknown) (no (unknown) (unknown) bulge. (units (unkno wn) date) unknown) (unknown) (no (unknown) (unknown) but no (units (unkno wn) date) unknown) (unknown) (no (unknown) (unknown) central (units (unkno wn) date) unknown) (unknown) (no (unknown) (unknown) circumferential (units (unknown) date) disc bulge. Facet unknown) degeneration contacts the exiting right L5 (unknown) (no (unknown) (unknown) compression (units (un known) date) unknown) (unknown) (no (unknown) (unknown) demonstrates (units (u nknown) date) normal signal and unknown) size. No abnormal epidural fluid collections. (unknown) (no (unknown) (unknown) desiccation with (units (unknown) date) unknown) (unknown) (no (unknown) (unknown) flavum (units (unkno wn) date) unknown) (unknown) (no (unknown) (unknown) foraminal (units (unkn own) date) narrowing, stable. unknown) (unknown) (no (unknown) (unknown) fractures. No (units ( unknown) date) suspicious bone unknown) edema. (unknown) (no (unknown) (unknown) hypertrophy. (units (u nknown) date) Chronic, mild unknown) circumferential disc bulge with a tiny, stable (unknown) (no (unknown) (unknown) in the neural (units ( unknown) date) foramen. Slight unknown) progression compared to the prior study. Mild (unknown) (no (unknown) (unknown) left (units (unkno wn) date) unknown) (unknown) (no (unknown) (unknown) may be performed. (units (unknown) date) unknown) (unknown) (no (unknown) (unknown) minor posterior (units (unknown) date) height loss at unknown) L4-5 and L5-S1, stable. (unknown) (no (unknown) (unknown) narrowing. Stable (units (unknown) date) compared to prior. unknown) (unknown) (no (unknown) (unknown) nerve root (units (unk nown) date) displacement. No unknown) neural foraminal narrowing. (unknown) (no (unknown) (unknown) nerve root (units (unk nown) date) unknown) (unknown) (no (unknown) (unknown) secondary to (units (u nknown) date) facet spurring. unknown) This might be clinically significant. (unknown) (no (unknown) (unknown) spin echo (units (unkn own) date) unknown) (unknown) (no (unknown) (unknown) through the (units (un known) date) lumbar spine. In unknown) cases with scoliosis, additional coronal T2 fast (unknown) (no (unknown) (unknown) to prior (units (unkno wn) date) unknown) Social History date description facility +0000 [facility]s date measurement value units [id number]+0000 BMI BMI 26.2 kg/m2 [id number]+0000 BP_diastolic BP_diastolic 78 mmHg [id number]+0000 BP_systolic BP_systolic 118 mmHg [id number]+0000 heart_rate heart_rate 78 /min [id number]+0000 height_metric height_metric 170.18 cm [id number]+0000 height_standard height_standard 67 in [id number]+0000 temperature_metric temperature_metric 36.94 C [id number]+0000 temperature_standard temperature_standard 9 8.5 F [id number]+0000 weight_metric weight_metric 75.863 g_ code [id number]+0000 weight_standard weight_standard 75.863 g_code
[2022-03-05] MEDS ORDERED: HYDROmorphone 1 MG/ML CARPUJECT IVP STA ×2 (14:24→16:32)
[2022-03-05] MEDS ORDERED: ONDANSETRON 4 MG/2 ML VIAL IVP STA (14:24)
[2022-03-05] MEDS ORDERED: SODIUM CHLORIDE 0.9% 1,000 ML IV STA (14:24)
[2022-03-05] MEDS ORDERED: FAMOTIDINE 20 MG/2 ML VIAL IVP STA (14:25)
[2022-03-05] MEDS ORDERED: iohexoL-300 100 ML VIAL ONE (14:28)
[2022-03-05 14:42] LABS: BASOPHILS % (AUTO) 1.1 %; EOSINOPHILS # (AUTO) 0.1 10^3/uL (0.0-0.7); EOSINOPHILS % (AUTO) 2.1 %; HCT - HEMATOCRIT 38.8 % (42.0-52.0); HGB - HEMOGLOBIN 12.6 g/dL (14.0-18.0); LYMPHOCYTES # (AUTO) 1.1 10^3/uL (1.5-3.5); LYMPHOCYTES % (AUTO) 28.5 %; MEAN CORPUSCULAR HEMOGLOBIN 31.3 pg (27.0-31.0); MEAN CORPUSCULAR HGB CONC 32.5 g/dL (32.0-36.0); MEAN CORPUSCULAR VOLUME 96.3 fL (80.0-94.0); MEAN PLATELET VOLUME 9.2 fL (7.4-11.4); MONOCYTES # (AUTO) 0.3 10^3/uL (0.0-1.0); MONOCYTES % (AUTO) 6.9 %; NEUTROPHILS # (AUTO) 2.3 10^3/uL (1.5-6.6); NEUTROPHILS % (AUTO) 61.4 %; PLT - PLATELET COUNT 71 10^3/uL (130-450); RED BLOOD COUNT 4.03 10^6/uL (4.70-6.10); RED CELL DISTRIBUTION WIDTH 14.6 % (12.0-15.0); WHITE BLOOD COUNT 3.8 x10^3/uL (4.8-10.8)
[2022-03-05 14:55] LABS: ALBUMIN 3.9 g/dL (3.2-5.5); ALBUMIN/GLOBULIN RATIO 1.4 (1.0-2.2); BILIRUBIN,TOTAL 0.3 mg/dL (0.2-1.0); CALCIUM 8.4 mg/dL (8.5-10.3); CREATININE 0.7 mg/dL (0.6-1.2); POTASSIUM 3.9 mmol/L (3.5-5.0); TOTAL PROTEIN 6.6 g/dL (6.7-8.2)
[2022-03-05] MEDS ORDERED: iohexoL-300 100 ML VIAL IVP ONE (15:23)
--- NOTE | 2022-03-05 15:48 | CT Report ---
PROCEDURE: ABDOMEN/PELVIS W INDICATIONS: Abdominal pain, acute, right sided CONTRAST: 100ml omni 300 TECHNIQUE: After the administration of intravenous contrast, 5 mm thick sections acquired from the diaphragms to the symphysis. 5 mm thick coronal and sagittal reformats were acquired. For radiation dose reducti on, the following was used: automated exposure control, adjustment of mA and/or kV according to kraig ent size. COMPARISON: CT abdomen and pelvis 02/08/2021. FINDINGS: Image quality: Excellent. ABDOMEN: Lung bases: Lung bases are clear. Heart size is normal. Solid organs: Liver is normal in size. Hepatic steatosis. No focal lesion. Gallbladder absent. Nilson iary system is non dilated. Pancreas enhances normally. No splenomegaly. No adrenal nodules. Kidney s demonstrate normal size and enhancement, without hydronephrosis. Peritoneum and bowel: Bowel loops demonstrate normal wall thickness and caliber. Sigmoid anastomosi s. Normal appendix. No free fluid or air. Nodes and vessels: No retroperitoneal or mesenteric adenopathy by size criteria. Aorta and inferior vena cava are normal in size. Mild calcified plaque. Miscellaneous: No ventral hernias. PELVIS: Genitourinary: Bladder wall thickness is normal. Bladder is distended. No stones. Miscellaneous: No inguinal hernias or adenopathy. Bones: No suspicious bony lesions. No vertebral body compression fractures. IMPRESSION: 1. No acute abnormality. No small bowel obstruction. Normal appendix. No free fluid. 2. Hepatic steatosis. Reviewed by: Tavo Jiménez MD on 03/05/2022 2:46 PM [facility] Approved by: Tavo Jiménez MD on 03/05/2022 2:46 PM [facility] Station ID: [id number]
[2022-03-05] MEDS ORDERED: MAG HYDROX/AL HYDROX/SIMETH 30 ML UDC PO STA (16:41)
[2022-03-05 16:49] LABS: BILIRUBIN,URINE NEGATIVE (NEGATIVE); GLUCOSE, URINE (UA) NEGATIVE (NEGATIVE); KETONES,URINE (UA) NEGATIVE (NEGATIVE); LEUKOCYTE ESTERASE, URINE NEGATIVE (NEGATIVE); NITRITE,URINE NEGATIVE (NEGATIVE); OCCULT BLOOD,URINE NEGATIVE (NEGATIVE); PROTEIN,URINE NEGATIVE (NEGATIVE); UROBILINOGEN,URINE 0.2 (NORMAL) E.U./dL (NORMAL)
[2022-03-05 16:51] LABS: CLARITY,URINE CLEAR (CLEAR)
[2022-03-05 17:33] VITALS: BP 118/80
== END 2022-03-05 17:42 | disposition home or self-care (01) ==
LOC: EDUNIT# → ED 14:05
DX: K29.70 Gastritis, unspecified, without bleeding (principal); K29.80 Duodenitis without bleeding; F10.20 Alcohol dependence, uncomplicated; Y90.8 Blood alcohol level of 240 mg/100 ml or more; F17.200 Nicotine dependence, unspecified, uncomplicated
CPT/HCPCS: 36415; 74177; 80053; 81003; 83690; 83735; 85025; 96374; 96375; 99284; A9270; G0480; J1170; Q9967; 80320; 81001; 87086

== ENCOUNTER 2022-04-23 11:04 | Outpatient (CLI) | payer MEDICARE, MEDICAID | END 2022-04-23 11:05 | disposition critical access hospital (66) | LOC: EMS 11:04 | DX: R07.89 Other chest pain (principal); M54.50 Low back pain, unspecified | CPT/HCPCS: A0425; A0427 ==

== ENCOUNTER 2022-04-23 11:24 | Emergency (ER) | payer MEDICARE, MEDICAID ==
[2022-04-23 11:42] VITALS: BP 113/75
[2022-04-23 11:57] LABS: BASOPHILS # (AUTO) 0.1 10^3/uL (0.0-0.1); EOSINOPHILS # (AUTO) 0.2 10^3/uL (0.0-0.7); EOSINOPHILS % (AUTO) 2.4 %; HCT - HEMATOCRIT 44.7 % (42.0-52.0); HGB - HEMOGLOBIN 14.8 g/dL (14.0-18.0); LYMPHOCYTES # (AUTO) 3.7 10^3/uL (1.5-3.5); LYMPHOCYTES % (AUTO) 55.1 %; MEAN CORPUSCULAR HGB CONC 33.1 g/dL (32.0-36.0); MEAN CORPUSCULAR VOLUME 93.5 fL (80.0-94.0); MEAN PLATELET VOLUME 8.9 fL (7.4-11.4); MONOCYTES # (AUTO) 0.2 10^3/uL (0.0-1.0); MONOCYTES % (AUTO) 3.6 %; NEUTROPHILS # (AUTO) 2.5 10^3/uL (1.5-6.6); NEUTROPHILS % (AUTO) 37.8 %; PLT - PLATELET COUNT 268 10^3/uL (130-450); RED BLOOD COUNT 4.78 10^6/uL (4.70-6.10); RED CELL DISTRIBUTION WIDTH 12.2 % (12.0-15.0); WHITE BLOOD COUNT 6.7 x10^3/uL (4.8-10.8)
--- NOTE | 2022-04-23 12:06 | XRAY Report ---
PROCEDURE: Chest 1 View X-Ray INDICATIONS: Chest pain TECHNIQUE: One view of the chest was acquired. COMPARISON: 07/05/2021. FINDINGS: Surgical changes and devices: None. Lungs and pleura: No pleural effusions or pneumothorax. Lungs are clear. Mediastinum: Mediastinal contours appear normal. Heart size is normal. Bones and chest wall: No suspicious bony lesions. Overlying soft tissues appear unremarkable. IMPRESSION: No acute cardiopulmonary pathology. Reviewed by: Abdulaziz Mathis MD on 04/23/2022 12:04 PM [facility] Approved by: Abdulaziz Mathis MD on 04/23/2022 12:04 PM [facility] Station ID: [id number]
[2022-04-23 12:09] LABS: ALBUMIN 4.2 g/dL (3.2-5.5); ALBUMIN/GLOBULIN RATIO 1.4 (1.0-2.2); BILIRUBIN,TOTAL 0.5 mg/dL (0.2-1.0); CALCIUM 8.5 mg/dL (8.5-10.3); CREATININE 0.9 mg/dL (0.6-1.2); POTASSIUM 3.7 mmol/L (3.5-5.0); TOTAL PROTEIN 7.3 g/dL (6.7-8.2)
--- NOTE | 2022-04-23 13:40 | ED Physician Documentation ---
PD HPI CHEST PAIN - Stated complaint Stated Complaint: CHEST PAIN - Chief complaint Chief Complaint: Cardiac PD PAST MEDICAL HISTORY - Past Medical History Cardiovascular: None, Atrial fibrillation Respiratory: None Neuro: None Endocrine/Autoimmune: None GI: GERD, Pancreatitis, Other : None HEENT: None Psych: Anxiety, Other Musculoskeletal: Chronic back pain Derm: None - Past Surgical History Past Surgical History: Yes General: Cholecystectomy, Colonoscopy, Other Ortho: Rotator cuff repair HEENT: Other - Present Medications Home Medications: Ambulatory Orders Medication Instructions Recorded Confirmed Omeprazole Magnesium 20 mg PO DAILY 12/30/20 08/17/21 Quetiapine Fumarate [Seroquel] 50 mg PO QPM 12/31/20 08/17/21 Famotidine [Pepcid] 20 mg PO DAILY #14 tablet 08/17/21 LORazepam [Ativan] 1 mg PO Q6H PRN #25 tablet 08/17/21 Ondansetron Odt [Zofran] 4 mg TL Q6H PRN #15 tablet 08/17/21 PHENobarbitaL [Phenobarbital] 30 mg PO BID 6 Days #9 tablet 08/17/21 LORazepam [Ativan] 1 mg PO BID PRN #12 tablet 03/05/22 Ondansetron Odt [Zofran] 4 mg TL Q6H PRN #15 tablet 03/05/22 Oxycodone HCl/Acetaminophen 1 each PO Q6H PRN #18 tablet 03/05/22 [Percocet 5-325 mg Tablet] Pantoprazole [Protonix] 40 mg PO DAILY 30 Days #30 tablet 03/05/22 Sucralfate [Carafate] 1 gm PO ACHS #28 tablet 03/05/22 - Allergies Allergies/Adverse Reactions: Allergies Allergy/AdvReac Type Severity Reaction Status Date / Time buspirone [From BuSpar] Allergy Unknown Verified 04/23/22 15:17 pregabalin [From Lyrica] Allergy Unknown Verified 04/23/22 15:17 Penicillins AdvReac Unknown Rash Verified 04/23/22 15:17 - Social History Does the pt smoke?: Yes Smoking Status: Current every day smoker Does the pt drink ETOH?: Yes Does the pt have substance abuse?: No - Immunizations Immunizations are current?: Yes - POLST Patient has POLST: No POLST Status: Full Code Results - Vitals Vitals: Vital Signs - 24 hr 12/18/22 11:35 Temperature 36.0 C L Heart Rate 92 Respiratory 16 Rate Blood Pressure 113/75 O2 Saturation 98 Oxygen O2 Source Room air - EKG (time done) 1135 Rate: Rate (enter#) (88) Ischemia: Other (flat T-waves) Compare to prior EKG: Changed from prior EKG (SPT 07-05-21 T-wave amplitude has decreased) Computer interpretation: Agree with computer - Labs Labs: Laboratory Tests 04/23/22 04/23/22 04/23/22 11:51 11:51 11:51 WBC 6.7 RBC 4.78 Hgb 14.8 Hct 44.7 MCV 93.5 MCH 31.0 MCHC 33.1 RDW 12.2 Plt Count 268 MPV 8.9 Neut # (Auto) 2.5 Lymph # (Auto) 3.7 H [place] # (Auto) 0.2 Eos # (Auto) 0.2 Baso # (Auto) 0.1 Absolute Nucleated RBC 0.00 Nucleated RBC % 0.0 Sodium 137 Potassium 3.7 Chloride 100 L Carbon Dioxide 26 Anion Gap 11.0 BUN 15 Creatinine 0.9 Estimated GFR (MDRD) 87 L Glucose 112 H Calcium 8.5 Total Bilirubin 0.5 AST 47 H ALT 22 Alkaline Phosphatase 79 Troponin I High Sens 3.5 Total Protein 7.3 Albumin 4.2 Globulin 3.1 Albumin/Globulin Ratio 1.4 Lipase 27 PD Medical Decision Making - ED course ED course: 56-year-old alcoholic male presents to the emerged department with chest pain and back pain and eloped from the emergency department before I am able to evaluate him. I was able to review his electrocardiogram which was without signs of ischemia. Departure - Departure Disposition: ED Elope Discharge Date/Time: 04/23/22 12:17
== END 2022-04-23 12:17 | disposition left against medical advice (07) ==
LOC: ED 11:24
DX: Z53.21 Procedure and treatment not carried out due to patient leaving prior to being seen by health care provider (principal)
CPT/HCPCS: 36415; 80053; 83690; 84484; 85025; 93005; 99284

== ENCOUNTER 2022-04-23 15:03 | Outpatient (CLI) | payer MEDICARE, MEDICAID | END 2022-04-23 15:04 | disposition critical access hospital (66) | LOC: EMS 15:03 | DX: M54.9 Dorsalgia, unspecified (principal); F10.129 Alcohol abuse with intoxication, unspecified | CPT/HCPCS: A0425; A0429 ==

== ENCOUNTER 2022-04-23 15:07 | Emergency (ER) | payer MEDICARE, MEDICAID ==
[2022-04-23 15:17] VITALS: BP 123/83
[2022-04-23] MEDS ORDERED: ONDANSETRON 4 MG/2 ML VIAL IVP STA (15:30)
[2022-04-23] MEDS ORDERED: HYDROmorphone 1 MG/ML CARPUJECT IVP STA ×2 (15:30→16:28)
[2022-04-23] MEDS ORDERED: KETOROLAC 30 MG/ML VIAL IVP STA (15:30)
[2022-04-23] MEDS ORDERED: DEXAMETHASONE 10 MG/ML VIAL IVP STA (15:30)
[2022-04-23] MEDS ORDERED: SODIUM CHLORIDE 0.9% 1,000 ML IV STA (15:30)
--- NOTE | 2022-04-23 15:34 | ED Physician Documentation ---
History of Present Illness - Stated complaint Stated Complaint: ETOH - Chief complaint Chief Complaint: General - History obtained from History obtained from: Patient, EMS - History of Present Illness Timing: How many weeks ago (2) - Additonal information Additional information: Sky Gaffney is a 56-year-old alcoholic male who has recently been into treatment again. He indicates that 2 weeks ago he went into treatment was detox from alcohol and hydrocodone. When he returned from detox 5 days ago he continued to have significant back pain and he has not been able to get comfortable from this and he has started drinking again. He is here today under a lot of stress as his does not appreciate his behavior. Review of Systems Constitutional: denies: Fever Eyes: denies: Decreased vision Ears: denies: Ear pain Nose: denies: Congestion Throat: denies: Sore throat Cardiac: denies: Chest pain / pressure, Palpitations Respiratory: denies: Dyspnea, Cough GI: denies: Abdominal Pain, Nausea, Vomiting : denies: Dysuria, Frequency Skin: denies: Rash Musculoskeletal: reports: Back pain (lower back with sciatica to the right.). denies: Neck pain, Extremity pain Neurologic: reports: Numbness (to the right leg chronically). denies: Gen eralized weakness, Focal weakness PD PAST MEDICAL HISTORY - Past Medical History Past Medical History: Yes Cardiovascular: None, Atrial fibrillation Respiratory: None Neuro: None Endocrine/Autoimmune: None GI: GERD, Pancreatitis, Other : None HEENT: None Psych: Anxiety, Other Musculoskeletal: Chronic back pain Derm: None - Past Surgical History Past Surgical History: Yes General: Cholecystectomy, Colonoscopy, Other Ortho: Rotator cuff repair HEENT: Other - Present Medications Home Medications: Ambulatory Orders Medication Instructions Recorded Confirmed Omeprazole Magnesium 20 mg PO DAILY 12/30/20 08/17/21 Quetiapine Fumarate [Seroquel] 50 mg PO QPM 12/31/20 08/17/21 Famotidine [Pepcid] 20 mg PO DAILY #14 tablet 08/17/21 LORazepam [Ativan] 1 mg PO Q6H PRN #25 tablet 08/17/21 Ondansetron Odt [Zofran] 4 mg TL Q6H PRN #15 tablet 08/17/21 PHENobarbitaL [Phenobarbital] 30 mg PO BID 6 Days #9 tablet 04/13/22 LORazepam [Ativan] 1 mg PO BID PRN #12 tablet 03/05/22 Ondansetron Odt [Zofran] 4 mg TL Q6H PRN #15 tablet 03/05/22 Oxycodone HCl/Acetaminophen 1 each PO Q6H PRN #18 tablet 03/05/22 [Percocet 5-325 mg Tablet] Pantoprazole [Protonix] 40 mg PO DAILY 30 Days #30 tablet 03/05/22 Sucralfate [Carafate] 1 gm PO ACHS #28 tablet 03/05/22 - Allergies Allergies/Adverse Reactions: Allergies Allergy/AdvReac Type Severity Reaction Status Date / Time buspirone [From BuSpar] Allergy Unknown Verified 04/23/22 15:17 pregabalin [From Lyrica] Allergy Unknown Verified 04/23/22 15:17 Penicillins AdvReac Unknown Rash Verified 04/23/22 15:17 - Social History Does the pt smoke?: Yes Smoking Status: Current every day smoker Does the pt drink ETOH?: Yes Does the pt have substance abuse?: No - Immunizations Immunizations are current?: Yes - POLST Patient has POLST: No POLST Status: Full Code PD ED PE NORMAL - Vitals Vital signs reviewed: Yes (hypertensive mild) - General General: Alert and oriented X 3, No acute distress, Well developed/nourished, Other (slurred speech consistent with intoxication .) - HEENT HEENT: Atraumatic, PERRL, EOMI - Neck Neck: Supple, no meningeal sign, No bony TTP - Cardiac Cardiac: RRR, No murmur - Respiratory Respiratory: No respiratory distress, Clear bilaterally - Abdomen Abdomen: Normal bowel sounds, Soft, Non tender, Non distended, No organomegaly - Back Back: No CVA TTP, No spinal TTP, Other (mild right paraspinous muscle tenderness. 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, No motor deficit, No sensory deficit, Other (speech is mildly dysarthric) Eye Opening: Spontaneous Motor: Obeys Commands Verbal: Oriented GCS Score: 15 - Psych Psych: Normal mood, Normal affect Results - Vitals Vitals: Vital Signs - 24 hr 04/23/22 04/23/22 15:14 15:17 Temperature 36.0 C L 36.5 C Heart Rate 92 92 Respiratory 20 20 Rate Blood Pressure 123/83 H 123/83 H O2 Saturation 100 100 Oxygen O2 Source Room air - Labs Labs: Laboratory Tests 04/23/22 04/23/22 04/23/22 15:42 15:42 15:42 WBC 6.3 RBC 4.85 Hgb 14.9 Hct 45.2 MCV 93.2 MCH 30.7 MCHC 33.0 RDW 12.0 Plt Count 257 MPV 8.9 Neut # (Auto) 3.1 Lymph # (Auto) 2.9 [place] # (Auto) 0.3 Eos # (Auto) 0.0 Baso # (Auto) 0.1 Absolute Nucleated RBC 0.00 Nucleated RBC % 0.0 Sodium 136 Potassium 3.4 L Chloride 100 L Carbon Dioxide 22 Anion Gap 14.0 H BUN 13 Creatinine 0.7 Estimated GFR (MDRD) 116 Glucose 128 H Calcium 8.4 L Total Bilirubin 0.8 AST 56 H ALT 23 Alkaline Phosphatase 78 Troponin I High Sens 3.7 Total Protein 7.5 Albumin 4.0 Globulin 3.5 Albumin/Globulin Ratio 1.1 Lipase 27 Ethyl Alcohol 376.2 PD Medical Decision Making - ED course Complexity details: reviewed old records, reviewed results, re-evaluated patient , considered differential, d/w patient Reviewed Lab Results: I reviewed the patient's complete blood count and chemistries as well as a high- sensitivity troponin. The patient had earlier in the day been complaining of chest pain I reviewed his electrocardiogram at that time without evidence of acute ischemia and he subsequently eloped. He has now returned. He indicates that he is currently not having pain in his chest but I continue to feel compelled to order the high-sensitivity troponin and review it. Social Determinants of Health: The patient has a history of alcoholism and he and his are having some disagreement about him drinking. ED course: 56-year-old male with chronic back pain is recently getting return from detoxification including detoxification from his pain medications. He is on a pain contract with his primary care doctor and does not have access to pain medication. He is having continued pain in his back enough that he is started drinking again within days of returning from detoxification. Today we are treating his back pain in the emergency department with intravenous Toradol Dilaudid Zofran and dexamethasone. We will not be able to prescription the patient. He will follow-up with his primary for pain management. The patient's back pain required aggressive treatment. The patient's alcohol intoxication is likely a result of alcoholism and chronic pain. The patient did bargain for pain relief and despite the elevated alcohol level I provided more narcotic analgesic with a hard stop. Departure - Departure Disposition: 01 Home, Self Care Clinical Impression: Acute alcohol intoxication Qualifiers: Complication of substance-induced condition: uncomplicated Qualified Code(s): F10.920 - Alcohol use, unspecified with intoxication, uncomplicated Chronic low back pain Qualifiers: Back pain laterality: right Sciatica presence: with sciatica Sciatica laterality: sciatica of right side Qualified Code(s): M54.41 - Lumbago with sciatica, right side Condition: Stable Instructions: ED Back Care Tips, ED Alcohol Intoxication, ED Sciatica Follow-Up: JERSON ABRAHAM MD [Physician No Access] - Comments: Sky, today you are being treated for chronic pain and this will require a followup with your prescribing doctor. We will not be able to provide you with pain medication for this chronic pain. Abstain from alcohol and follow up with your primary care doctor. Discharge Date/Time: 04/23/22 16:55
[2022-04-23 15:48] LABS: BASOPHILS # (AUTO) 0.1 10^3/uL (0.0-0.1); BASOPHILS % (AUTO) 1.1 %; EOSINOPHILS % (AUTO) 0.6 %; HCT - HEMATOCRIT 45.2 % (42.0-52.0); HGB - HEMOGLOBIN 14.9 g/dL (14.0-18.0); LYMPHOCYTES # (AUTO) 2.9 10^3/uL (1.5-3.5); LYMPHOCYTES % (AUTO) 45.3 %; MEAN CORPUSCULAR HEMOGLOBIN 30.7 pg (27.0-31.0); MEAN CORPUSCULAR VOLUME 93.2 fL (80.0-94.0); MEAN PLATELET VOLUME 8.9 fL (7.4-11.4); MONOCYTES # (AUTO) 0.3 10^3/uL (0.0-1.0); NEUTROPHILS # (AUTO) 3.1 10^3/uL (1.5-6.6); NEUTROPHILS % (AUTO) 48.8 %; PLT - PLATELET COUNT 257 10^3/uL (130-450); RED BLOOD COUNT 4.85 10^6/uL (4.70-6.10); WHITE BLOOD COUNT 6.3 x10^3/uL (4.8-10.8)
[2022-04-23 16:05] LABS: ALBUMIN/GLOBULIN RATIO 1.1 (1.0-2.2); BILIRUBIN,TOTAL 0.8 mg/dL (0.2-1.0); CALCIUM 8.4 mg/dL (8.5-10.3); CREATININE 0.7 mg/dL (0.6-1.2); ETOH - ETHANOL 376.2 mg/dL; POTASSIUM 3.4 mmol/L (3.5-5.0); TOTAL PROTEIN 7.5 g/dL (6.7-8.2)
== END 2022-04-23 16:55 | disposition home or self-care (01) ==
LOC: ED 15:07
DX: M54.41 Lumbago with sciatica, right side (principal); G89.29 Other chronic pain; F10.229 Alcohol dependence with intoxication, unspecified; Z53.21 Procedure and treatment not carried out due to patient leaving prior to being seen by health care provider; R07.9 Chest pain, unspecified; F17.200 Nicotine dependence, unspecified, uncomplicated; Y90.8 Blood alcohol level of 240 mg/100 ml or more
CPT/HCPCS: 36415; 71045; 80053; 83690; 84484; 85025; 93005; 96361; 96374; 96375; 96376; 99283; 99284; 99285; G0480; J1170; 80320

== ENCOUNTER 2022-05-08 16:29 | Outpatient (CLI) | payer MEDICARE, MEDICAID | END 2022-05-08 16:30 | disposition short-term general hospital (02) | LOC: EMS 16:29 | DX: K92.0 Hematemesis (principal); R51.9 Headache, unspecified; M54.9 Dorsalgia, unspecified; R63.8 Other symptoms and signs concerning food and fluid intake | CPT/HCPCS: A0425; A0427 ==

== ENCOUNTER 2022-05-14 20:50 | Emergency (ER) | payer OTHER, MEDICARE, MEDICAID ==
--- OUTSIDE RECORDS SUMMARY | 2022-05-14 21:01 | EXTERNAL MEDICAL SUMMARY RPT | Continuity of Care Document ---
:1965 Author Organization [facility] Address [address] [place] [address] Phone Care Team Providers Name Role Phone Unavailable Unavailable Unavailable Lavelle Griffin Unavailable Unavailable Allergies and Intolerances date description facility type (no date) [facility] (unknown) Encounters No information. Functional Status No information. Immunizations No information. 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, lumbar harjinder 2022-02-22 09:31 Spondylosis without myelopathy or [facility] radiculopathy, lumbosacral 2022-02-26 13:05 Other intervertebral disc displacement, [facility] 2022-02-27 16:52 Other intervertebral disc displacement, [facility] 2022-05-08 00:00 Alcohol abuse with withdrawal [facility] 2022-05-08 00:00 Traumatic ecchymosis of right thoracic region [facility] 2022-05-09 06:39 Alcohol abuse with withdrawal, [facility] 2022-05-09 11:41 Alcohol abuse with withdrawal, [facility] 2022-05-09 12:06 Alcohol abuse with withdrawal, [facility] 2022-05-09 13:31 Alcohol abuse with withdrawal, [facility] 2022-05-09 14:19 Alcohol abuse with withdrawal, [facility] 2022-05-09 14:22 Alcohol abuse with withdrawal, [facility] 2022-05-09 15:54 Alcohol abuse with withdrawal, [facility] 2022-05-10 09:27 Alcohol abuse with withdrawal, [facility] 2022-05-11 08:06 Alcohol abuse with withdrawal, unspecif [facility] 2022-05-11 09:43 Alcohol abuse with withdrawal, unspecif [facility] 2022-05-11 17:05 [facility] 2022-05-08 00:00 Computed tomography of head or brain wi [facility] contrast 2022-02-26 00:00 MRI of lumbar spine without contrast [facility] 2022-05-08 00:00 Computed tomography of cervical spine w [facility] contrast Results/Labs test date author facility value unit interpret ation Result panel 1 (unknown) (no [facility]) Result panel 2 (unknown) (no date) ([facility] Result panel 3 (unknown) (no date) (unknown[facility] Result panel 4 (unknown) (no date) (unknown[facility] Result panel 5 (unknown) (no date) (unknown[facility] Result panel 6 (unknown) (no date) (unknown[facility] Result panel 7 (unknown) (no date) (unknown[facility] Result panel 8 (unknown) (no date) (unknown[facility] Result panel 9 (unknown) (no date) (unknown[facility] Result panel 10 (unknown) (no date) (unknown[facility] Result panel 11 (unknown) (no date) (unknown[facility] Result panel 12 (unknown) (no date) (unknown[facility] Result panel 13 (unknown) (no date) (unknown[facility] Result panel 14 (unknown) (no date) (unknown[facility] Result panel 15 (unknown) (no date) (unknown[facility] Result panel 16 (unknown) (no date) (unknown[facility] Result panel 17 (unknown) (no date) (unknown[facility] Result panel 18 (unknown) (no date) (unknown[facility] Result panel 19 (unknown) (no date) (unknown[facility] Result panel 20 (unknown) (no date) (unknown[facility] Result panel 21 (unknown) (no date) (unknown[facility] Result panel 22 (unknown) (no date) (unknown[facility] Result panel 23 (unknown) (no date) (unknown[facility] Result panel 24 (unknown) (no date) (unknown[facility] Result panel 25 (unknown) (no date) (unknown[facility] Result panel 26 (unknown) (no date) (unknown[facility] Result panel 27 (unknown) (no date) (unknown[facility] Result panel 28 (unknown) (no date) (unknown[facility] Result panel 29 (unknown) (no date) (unknown[facility] Result panel 30 (unknown) (no date) (unknown[facility] Result panel 31 (unknown) (no date) (unknown[facility] Result panel 32 (unknown) (no date) (unknown[facility] Result panel 33 (unknown) (no date) (unknown[facility] Result panel 34 (unknown) (no date) (unknown[facility] Result panel 35 (unknown) (no date) (unknown[facility] Result panel 36 (unknown) (no date) (unknown[facility] Result panel 37 (unknown) (no date) (unknown[facility] Result panel 38 (unknown) (no date) (unknown[facility] Result panel 39 (unknown) (no date) (unknown[facility] Result panel 40 (unknown) (no date) (unknown[facility] Result panel 41 (unknown) (no date) (unknown[facility] Result panel 42 (unknown) (no date) (unknown[facility] Result panel 43 (unknown) (no date) (unknown[facility] Result panel 44 (unknown) (no date) (unknown[facility] Result panel 45 (unknown) (no date) (unknown[facility] Result panel 46 (unknown) (no date) (unknown[facility] Result panel 47 (unknown) (no date) (unknown[facility] Result panel 48 (unknown) (no date) (unknown[facility] Result panel 49 (unknown) (no date) (unknown[facility] Result panel 50 (unknown) (no date) (unknown[facility] Result panel 51 (unknown) (no date) (unknown[facility] Result panel 52 (unknown) (no date) (unknown[facility] Result panel 53 (unknown) (no date) (unknown[facility] Result panel 54 (unknown) (no date) (unknown[facility] Result panel 55 (unknown) (no date) (unknown[facility] Result panel 56 (unknown) (no date) (unknown[facility] Result panel 57 (unknown) (no date) (unknown[facility] Result panel 58 (unknown) (no date) (unknown[facility] Result panel 59 (unknown) (no date) (unknown[facility] Result panel 60 (unknown) (no date) (unknown[facility] Result panel 61 (unknown) (no date) (unknown[facility] Result panel 62 (unknown) (no date) (unknown[facility] Result panel 63 (unknown) (no date) (unknown[facility] Result panel 64 (unknown) (no date) (unknown[facility]) Result panel 65 (unknown) (no date) (unknown[facility] Result panel 66 (unknown) (no date) (unknown[facility]) Result panel 67 (unknown) (no date) (unknown[facility] Result panel 68 (unknown) (no date) (unknown[facility] Result panel 69 (unknown) (no date) (unknown[facility] Result panel 70 (unknown) (no date) (unknown[facility] Result panel 71 (unknown) (no date) (unknown[facility] Result panel 72 (unknown) (no date) (unknown[facility] Result panel 73 (unknown) (no date) (unknown[facility] Result panel 74 (unknown) (no date) (unknown[facility]) Result panel 75 (unknown) (no date) (unknown[facility] Result panel 76 (unknown) (no date) (unknown[facility] Result panel 77 (unknown) (no date) (unknown[facility]) Result panel 78 (unknown) (no date) (unknown[facility] Result panel 79 (unknown) (no date) (unknown[facility] Result panel 80 (unknown) (no date) (unknown[facility] Result panel 81 (unknown) (no date) (unknown[facility] Result panel 82 (unknown) (no date) (unknown[facility] Result panel 83 (unknown) (no date) (unknown[facility] Result panel 84 (unknown) (no date) (unknown[facility] Result panel 85 (unknown) (no date) (unknown[facility] Result panel 86 (unknown) (no date) (unknown[facility] Result panel 87 (unknown) (no date) (unknown[facility] Result panel 88 (unknown) (no date) (unknown[facility] Result panel 89 (unknown) (no date) (unknown[facility] Result panel 90 (unknown) (no date) (unknown[facility] Result panel 91 (unknown) (no date) (unknown[facility] Result panel 92 (unknown) (no date) (unknown[facility] Result panel 93 (unknown) (no date) (unknown[facility] Result panel 94 (unknown) (no date) (unknown[facility] Result panel 95 (unknown) (no date) (unknown[facility] Result panel 96 (unknown) (no date) (unknown[facility] Result panel 97 (unknown) (no date) (unknown[facility] Result panel 98 (unknown) (no date) (unknown[facility] Result panel 99 (unknown) (no date) (unknown[facility] Result panel 100 (unknown) (no date) (unknown[facility] Result panel 101 (unknown) (no date) (unknown[facility]) Result panel 102 (unknown) (no date) (unknown[facility] Result panel 103 (unknown) (no date) (unknown[facility]) Result panel 104 (unknown) (no date) (unknown[facility] Result panel 105 (unknown) (no date) (unknown[facility]) Result panel 106 (unknown) (no date) (unknown[facility] Result panel 107 (unknown) (no date) (unknown[facility]) Result panel 108 (unknown) (no date) (unknown[facility] Result panel 109 (unknown) (no date) (unknown[facility] Result panel 110 (unknown) (no date) (unknown[facility]) Result panel 111 (unknown) (no date) (unknown[facility] Result panel 112 (unknown) (no date) (unknown[facility] Result panel 113 (unknown) (no date) (unknown[facility] Result panel 114 (unknown) (no date) (unknown[facility] Result panel 115 (unknown) (no date) (unknown[facility]) Result panel 116 (unknown) (no date) (unknown[facility] Result panel 117 (unknown) (no date) (unknown[facility]) Result panel 118 (unknown) (no date) (unknown[facility]) Result panel 119 (unknown) (no date) (unknown[facility] Result panel 120 (unknown) (no date) (unknown[facility]) Result panel 121 (unknown) (no date) (unknown[facility] Result panel 122 (unknown) (no date) (unknown[facility]) Result panel 123 (unknown) (no date) (unknown[facility] Result panel 124 (unknown) (no date) (unknown[facility] Result panel 125 (unknown) (no date) (unknown[facility] Result panel 126 (unknown) (no date) (unknown[facility]) Result panel 127 (unknown) (no date) (unknown[facility]) Result panel 128 (unknown) (no date) (unknown[facility] Result panel 129 (unknown) (no date) (unknown[facility] Result panel 130 (unknown) (no date) (unknown[facility]) Result panel 131 (unknown) (no date) (unknown[facility]) Result panel 132 (unknown) (no date) (unknown[facility] Result panel 133 (unknown) (no date) (unknown[facility]) Result panel 134 (unknown) (no date) (unknown[facility] Result panel 135 (unknown) (no date) (unknown[facility] Result panel 136 (unknown) (no date) (unknown[facility] Result panel 137 (unknown) (no date) (unknown[facility]) Result panel 138 (unknown) (no date) (unknown) [facility] Result panel 139 (unknown) (no date) (unknown[facility]) Result panel 140 (unknown) (no date) (unknown[facility] Result panel 141 (unknown) (no date) (unknown[facility]) Result panel 142 (unknown) (no date) (unknown) [facility]) Result panel 143 (unknown) (no date) (unknown[facility]) Result panel 144 (unknown) (no date) (unknown[facility]) Result panel 145 (unknown) (no date) (unknown) [facility] Result panel 146 (unknown) (no date) (unknown[facility]) Result panel 147 (unknown) (no date) (unknown) [facility] Result panel 148 (unknown) (no date) (unknown) [facility]) Result panel 149 (unknown) (no date) (unknown) [facility] Result panel 150 (unknown) (no date) (unknown) [facility]) Result panel 151 (unknown) (no date) (unknown) [facility] Result panel 152 (unknown) (no date) (unknown[facility] Result panel 153 (unknown) (no date) (unknown) [facility] Result panel 154 (unknown) (no date) (unknown) [facility] Result panel 155 (unknown) (no date) (unknown) [facility] Result panel 156 (unknown) (no date) (unknown) [facility]) Result panel 157 (unknown) (no date) (unknown) [facility] Result panel 158 (unknown) (no date) (unknown) [facility]) Result panel 159 (unknown) (no date) (unknown) [facility]) Result panel 160 (unknown) (no date) (unknown) [facility]) Result panel 161 (unknown) (no date) (unknown) [facility] Result panel 162 (unknown) (no date) (unknown) [facility]) Result panel 163 (unknown) (no date) (unknown) [facility] Result panel 164 (unknown) (no date) (unknown) [facility]) Result panel 165 (unknown) (no date) (unknown) [facility] Result panel 166 (unknown) (no date) (unknown) [facility]) Result panel 167 (unknown) (no date) (unknown) [facility] Result panel 168 (unknown) (no date) (unknown) [facility] Result panel 169 (unknown) (no date) (unknown) [facility]) Result panel 170 (unknown) (no date) (unknown) [facility] Result panel 171 (unknown) (no date) (unknown) [facility]) Result panel 172 (unknown) (no date) (unknown) [facility] Result panel 173 (unknown) (no date) (unknown) [facility] Result panel 174 (unknown) (no date) (unknown) [facility] Result panel 175 (unknown) (no date) (unknown) [facility] Result panel 176 (unknown) (no date) (unknown) [facility] Result panel 177 (unknown) (no date) (unknown) [facility]) Result panel 178 (unknown) (no date) (unknown) [facility] Result panel 179 (unknown) (no date) (unknown) [facility] Result panel 180 (unknown) (no date) (unknown) [facility] Result panel 181 (unknown) (no date) (unknown) [facility] Result panel 182 (unknown) (no date) (unknown) [facility] Result panel 183 (unknown) (no date) (unknown[facility] Result panel 184 (unknown) (no date) (unknown[facility] Result panel 185 (unknown) (no date) (unknown[facility] Result panel 186 (unknown) (no date) (unknown[facility] Result panel 187 (unknown) (no date) (unknown) [facility]) Result panel 188 (unknown) (no date) (unknown) [facility] Result panel 189 (unknown) (no date) (unknown) [facility] Result panel 190 (unknown) (no date) (unknown) [facility] Result panel 191 (unknown) (no date) (unknown) [facility] Result panel 192 (unknown) (no date) (unknown) [facility]) Result panel 193 (unknown) (no date) (unknown) [facility] Result panel 194 (unknown) (no date) (unknown) [facility] Result panel 195 (unknown) (no date) (unknown) [facility] Result panel 196 (unknown) (no date) (unknown) [facility] Result panel 197 (unknown) (no date) (unknown) [facility] Result panel 198 (unknown) (no date) (unknown) [facility] Result panel 199 (unknown) (no date) (unknown) [facility] Result panel 200 (unknown) (no date) (unknown) [facility] Result panel 201 (unknown) (no date) (unknown) [facility] Result panel 202 (unknown) (no date) (unknown) [facility] Result panel 203 (unknown) (no date) (unknown) [facility] Result panel 204 (unknown) (no date) (unknown) [facility] Result panel 205 (unknown) (no date) (unknown) [facility] Result panel 206 (unknown) (no date) (unknown) [facility] Result panel 207 (unknown) (no date) (unknown) [facility] Result panel 208 (unknown) (no date) (unknown) [facility] Result panel 209 (unknown) (no date) (unknown) [facility] Result panel 210 (unknown) (no date) (unknown) [facility] Result panel 211 (unknown) (no date) (unknown[facility] Result panel 212 (unknown) (no date) (unknown) [facility] Result panel 213 (unknown) (no date) (unknown[facility] Result panel 214 (unknown) (no date) (unknown) [facility]) Result panel 215 (unknown) (no date) (unknown) [facility] Result panel 216 (unknown) (no date) (unknown) [facility] Result panel 217 (unknown) (no date) (unknown) [facility]) Result panel 218 (unknown) (no date) (unknown) [facility]) Result panel 219 (unknown) (no date) (unknown) [facility]) Result panel 220 (unknown) (no date) (unknown) [facility]) Result panel 221 (unknown) (no date) (unknown) [facility]) Result panel 222 (unknown) (no date) (unknown) [facility]) Result panel 223 (unknown) (no date) (unknown) [facility]) Result panel 224 (unknown) (no date) (unknown) [facility]) Result panel 225 (unknown) (no date) (unknown) [facility]) Result panel 226 (unknown) (no date) (unknown) [facility]) Result panel 227 (unknown) (no date) (unknown) [facility]) Result panel 228 (unknown) (no date) (unknown) [facility]) Result panel 229 (unknown) (no date) (unknown) [facility]) Result panel 230 (unknown) (no date) (unknown) [facility]) Result panel 231 (unknown) (no date) (unknown) [facility]) Result panel 232 (unknown) (no date) (unknown) [facility]) Result panel 233 (unknown) (no date) (unknown) [facility]) Result panel 234 (unknown) (no date) (unknown) [facility]) Result panel 235 (unknown) (no date) (unknown) [facility]) Result panel 236 (unknown) (no date) (unknown) [facility]) Result panel 237 (unknown) (no date) (unknown) [facility]) Result panel 238 (unknown) (no date) (unknown) [facility] Result panel 239 (unknown) (no date) (unknown) [facility]) Result panel 240 (unknown) (no date) (unknown) [facility]) Result panel 241 (unknown) (no (unknown) (unknown) (no value) (units (unk nown) date) unknown) (unknown) (no (unknown) (unknown) [id number] (units (unkno wn) date) unknown) (unknown) (no (unknown) (unknown) 1. No significant (units (unknown) date) changes compared unknown) to prior study from 2019. (unknown) (no (unknown) (unknown) 02/26/22 (units (unkno wn) date) unknown) (unknown) (no (unknown) (unknown) [address] [place] [address] (units (unknown) date) unknown) (unknown) (no (unknown) (unknown) 14:01. (units (unkno wn) date) unknown) (unknown) (no (unknown) (unknown) 2. There has been (units (unknown) date) slight progression unknown) of neural foraminal narrowing on the right (unknown) (no (unknown) (unknown) 3. Stable tiny (units (unknown) date) posterior annular unknown) tear L4-5. (unknown) (no (unknown) (unknown) Accession Number: (units (unknown) date) [id number] unknown) (unknown) (no (unknown) (unknown) Age/Sex: 56 / M (units (unknown) date) Date of Service: unknown) (unknown) (no (unknown) (unknown) Alignment and (units ( unknown) date) Curvature: There unknown) is normal bony alignment. No change compared (unknown) (no (unknown) (unknown) OSEAS Collazo (units ( unknown) date) [id number] unknown) (unknown) (no (unknown) (unknown) Approved by: (units (u nknown) date) rosa m Carlin M.D. on 02/26/2022 at 13:55 (unknown) (no (unknown) (unknown) Bone Marrow: (units (u nknown) date) Marrow is of unknown) normal overall signal. No acute vertebral body (unknown) (no (unknown) (unknown) COMPARISON: (units (un known) date) [facility], unknown) XA, PAIN L/S FACET INJ/BLK 1ST [place], 02/09/2022, (unknown) (no (unknown) (unknown) : 1965 (units (unknown) date) Acct:[id number] unknown) (unknown) (no (unknown) (unknown) Dictated by: (units (u nknown) date) Nga Whiting unknownLuc Lawson on 02/26/2022 at 13:36 (unknown) (no [...] date) Excellent. unknown) (unknown) (no (unknown) (unknown) [facility] (units (unknown) date) unknown) (unknown) (no (unknown) (unknown) [facility], (units (unknown) date) MR, MR LUMBAR unknown) [...] (unknown) (unknown) Patient: (units (unkno wn) date) Sky Gaffney unknown) MR#: [id number] (unknown) (no (unknown) (unknown) [...] to prior (units (unkno wn) date) unknown) Result panel 242 (unknown) (no date) (unknown) (unknown) 0.9 (units unknown) (unknown) (unknown) (no date) (unknown) (unknown) 10.4 seconds (unkn own) Result panel 243 (unknown) (no date) (unknown) (unknown) 0 /ul (unkn own) (unknown) (no date) (unknown) (unknown) 0 /ul (unkn own) (unknown) (no date) (unknown) (unknown) 0.0 % (unkn own) (unknown) (no date) (unknown) (unknown) 0.1 % (unkn own) (unknown) (no date) (unknown) (unknown) 0.9 (units unknown) (unknown) (unknown) (no date) (unknown) (unknown) 1.6 % (unkn own) (unknown) (no date) (unknown) (unknown) 10.4 seconds (unkn own) (unknown) (no date) (unknown) (unknown) 13.5 g/dl (unkn own) (unknown) (no date) (unknown) (unknown) 14.2 % (unkn own) (unknown) (no date) (unknown) (unknown) 17800 /ul (unkn own) (unknown) (no date) (unknown) (unknown) 22.1 x10 3/ul (unkn own) (unknown) (no date) (unknown) (unknown) 28 seconds (unkn own) (unknown) (no date) (unknown) (unknown) 28 seconds (unkn own) (unknown) (no date) (unknown) (unknown) 3.0 % (unkn own) (unknown) (no date) (unknown) (unknown) 306 x10 3/ul (unkn own) (unknown) (no date) (unknown) (unknown) 31.7 pg (unkn own) (unknown) (no date) (unknown) (unknown) 32.3 % (unkn own) (unknown) (no date) (unknown) (unknown) 4.27 x10 6/ul (unkn own) (unknown) (no date) (unknown) (unknown) 400 /ul (unkn own) (unknown) (no date) (unknown) (unknown) 42.0 % (unkn own) (unknown) (no date) (unknown) (unknown) 700 /ul (unkn own) (unknown) (no date) (unknown) (unknown) 95.3 % (unkn own) (unknown) (no date) (unknown) (unknown) 98.2 fl (unkn own) Result panel 244 (unknown) (no (unknown) (unknown) (no value) (units (unk nown) date) unknown) (unknown) (no (unknown) (unknown) .COMPLEX #90 caps (units (unknown) date) unknown) (unknown) (no (unknown) (unknown) 05/08/22 05/08/22 (units (unknown) date) Range/Units unknown) (unknown) (no (unknown) (unknown) 05/08/22 17:30 (units (unknown) date) unknown) (unknown) (no (unknown) (unknown) 05/08/22 17:55 (units (unknown) date) unknown) (unknown) (no (unknown) (unknown) 05/08/22 18:00 (units (unknown) date) unknown) (unknown) (no (unknown) (unknown) 05/08/22 (units (unkno wn) date) unknown) (unknown) (no (unknown) (unknown) [id number] (units (unkno wn) date) unknown) (unknown) (no (unknown) (unknown) 1 tab PO Q6H PRN (units (unknown) date) unknown) (unknown) (no (unknown) (unknown) 10 mg PO TID PRN (units (unknown) date) (Reason: Back unknown) Pain) Qty: 90 2RF (unknown) (no (unknown) (unknown) 100 mg PO BEDTIME (units (unknown) date) unknown) (unknown) (no (unknown) (unknown) 17:30 17:30 (units (un known) date) unknown) (unknown) (no (unknown) (unknown) 17:33 05/08/22 (units (unknown) date) unknown) (unknown) (no (unknown) (unknown) 17:49 05/08/22 (units (unknown) date) unknown) (unknown) (no (unknown) (unknown) 18:00 (units (unkno wn) date) unknown) (unknown) (no (unknown) (unknown) 20 mg PO DAILY (units (unknown) date) unknown) (unknown) (no (unknown) (unknown) APTT 28 (26-36) (units (unknown) date) SECONDS unknown) (unknown) (no (unknown) (unknown) Age/Sex: 56 / M (units (unknown) date) unknown) (unknown) (no (unknown) (unknown) Alcohol type: (units ( unknown) date) beer unknown) (unknown) (no (unknown) (unknown) Alcoholism (units (unk nown) date) unknown) (unknown) (no (unknown) (unknown) Allergies (units (unkn own) date) unknown) (unknown) (no (unknown) (unknown) Allergy/AdvReac (units (unknown) date) Type Severity unknown) Reaction Status Date / Time (unknown) (no (unknown) (unknown) Baso # (Auto) 0 (units (unknown) date) (0-100) /uL unknown) (unknown) (no (unknown) (unknown) Baso % (Auto) 0.1 (units (unknown) date) (0-2) % unknown) (unknown) (no (unknown) (unknown) Bedside Urine (units ( unknown) date) Bilirubin - unknown) Negative (unknown) (no (unknown) (unknown) Bedside Urine (units ( unknown) date) Glucose Negative unknown) (unknown) (no (unknown) (unknown) Bedside Urine (units ( unknown) date) Ketone +++ 80 unknown) (unknown) (no (unknown) (unknown) Bedside Urine (units ( unknown) date) Leukocytes - unknown) Negative (unknown) (no (unknown) (unknown) Bedside Urine (units ( unknown) date) Nitrite - Negative unknown) (unknown) (no (unknown) (unknown) Bedside Urine (units ( unknown) date) Occult Blood - unknown) Negative (unknown) (no (unknown) (unknown) Bedside Urine (units ( unknown) date) Protein + 30 unknown) (unknown) (no (unknown) (unknown) Bedside Urine (units ( unknown) date) Urobilinogen - unknown) Negative (unknown) (no (unknown) (unknown) Bedside Urine pH (units (unknown) date) 6.0 unknown) (unknown) (no (unknown) (unknown) Blood Pressure (units (unknown) date) 132/85 05/08/22 unknown) 17:33 (unknown) (no (unknown) (unknown) Blood Pressure (units (unknown) date) 132/85 unknown) (unknown) (no (unknown) (unknown) Chief complaint: (units (unknown) date) GI Bleed unknown) (unknown) (no (unknown) (unknown) Chronic back pain (units (unknown) date) unknown) (unknown) (no (unknown) (unknown) Complete Blood (units (unknown) date) Count AUTO DIFF unknown) Stat (unknown) (no (unknown) (unknown) Comprehensive (units ( unknown) date) Metabolic Panel unknown) Stat (unknown) (no (unknown) (unknown) Lavelle Griffin, (units (unknown) date) [Primary Care unknown) Provider] (unknown) (no (unknown) (unknown) Course (units (unkno wn) date) unknown) (unknown) (no (unknown) (unknown) : 1965 (units (unknown) date) Acct:[id number] unknown) (unknown) (no (unknown) (unknown) Date of Service: (units (unknown) date) 05/08/22 unknown) (unknown) (no (unknown) (unknown) Degenerative disc (units (unknown) date) disease unknown) (unknown) (no (unknown) (unknown) Departure (units (unkn own) date) unknown) (unknown) (no (unknown) (unknown) Discharge Plan (units (unknown) date) unknown) (unknown) (no (unknown) (unknown) Discontinued (units (u nknown) date) Medications unknown) (unknown) (no (unknown) (unknown) Dose Instruction: (units (unknown) date) unknown) (unknown) (no (unknown) (unknown) ED Orders (units (unkn own) date) unknown) (unknown) (no (unknown) (unknown) EKG-12 Lead Stat (units (unknown) date) unknown) (unknown) (no (unknown) (unknown) ER Physician: (units ( unknown) date) Marylu Arce D.O. unknown) (unknown) (no (unknown) (unknown) Emergency Report (units (unknown) date) unknown) (unknown) (no (unknown) (unknown) Eos # (Auto) 0 (units (unknown) date) (0-450) /uL unknown) (unknown) (no (unknown) (unknown) Eos % (Auto) 0.0 (units (unknown) date) L (2-4) % unknown) (unknown) (no (unknown) (unknown) Esterase (units (unkno wn) date) unknown) (unknown) (no (unknown) (unknown) Exam (units (unkno wn) date) unknown) (unknown) (no (unknown) (unknown) Facet (units (unkno wn) date) arthropathy, unknown) lumbar (unknown) (no (unknown) (unknown) Family History (units (unknown) date) (Reviewed 05/08/22 unknown) @ 18:26 by Marylu Arce DO) (unknown) (no (unknown) (unknown) Footdrop (units (unkno wn) date) unknown) (unknown) (no (unknown) (unknown) Gait instability (units (unknown) date) unknown) (unknown) (no (unknown) (unknown) General (units (unkno wn) date) unknown) (unknown) (no (unknown) (unknown) HPI - GI Bleed (units (unknown) date) unknown) (unknown) (no (unknown) (unknown) Hct 42.0 (41-53) (units (unknown) date) % unknown) (unknown) (no (unknown) (unknown) Hepatic steatosis (units (unknown) date) unknown) (unknown) (no (unknown) (unknown) Herniated nucleus (units (unknown) date) pulposus, L4-5 unknown) (unknown) (no (unknown) (unknown) Hgb 13.5 (units (unkno wn) date) (13.5-17.5) g/dL unknown) (unknown) (no (unknown) (unknown) History of (units (unk nown) date) colostomy reversal unknown) (unknown) (no (unknown) (unknown) Home Medications (units (unknown) date) unknown) (unknown) (no (unknown) (unknown) INR 0.9 (0.9-1.3) (units (unknown) date) unknown) (unknown) (no (unknown) (unknown) Initial Vital (units ( unknown) date) Signs unknown) (unknown) (no (unknown) (unknown) Initial Vital (units ( unknown) date) Signs: unknown) (unknown) (no (unknown) (unknown) [facility] (units (unknown) date) [address] unknown) [place] [address] (unknown) (no (unknown) (unknown) Lab Data (units (unkno wn) date) unknown) (unknown) (no (unknown) (unknown) Lab Results (units (un known) date) unknown) (unknown) (no (unknown) (unknown) Labs: (units (unkno wn) date) unknown) (unknown) (no (unknown) (unknown) Limitations: no (units (unknown) date) limitations unknown) (unknown) (no (unknown) (unknown) Lymph # (Auto) (units (unknown) date) 700 L (3514-8944) unknown) /uL (unknown) (no (unknown) (unknown) Lymph % (Auto) (units (unknown) date) 3.0 L (25-40) % unknown) (unknown) (no (unknown) (unknown) MCH 31.7 (26-34) (units (unknown) date) PG unknown) (unknown) (no (unknown) (unknown) MCHC 32.3 (30-36) (units (unknown) date) % unknown) (unknown) (no (unknown) (unknown) MCV 98.2 (80-100) (units (unknown) date) fL unknown) (unknown) (no (unknown) (unknown) MDM - GI Bleed (units (unknown) date) unknown) (unknown) (no (unknown) (unknown) Medical History (units (unknown) date) unknown) (unknown) (no (unknown) (unknown) Medication (units (unk nown) date) Instructions unknown) Recorded Confirmed (unknown) (no (unknown) (unknown) Medication (units (unk nown) date) Instructions unknown) Recorded (unknown) (no (unknown) (unknown) Melanotic stools (units (unknown) date) unknown) (unknown) (no (unknown) (unknown) Mode of arrival: (units (unknown) date) EMS unknown) (unknown) (no (unknown) (unknown) [place] # (Auto) 400 (units (unknown) date) (0-900) /uL unknown) (unknown) (no (unknown) (unknown) [place] % (Auto) 1.6 (units (unknown) date) L (3-14) % unknown) (unknown) (no (unknown) (unknown) Neut # (Auto) (units ( unknown) date) 00347 H unknown) (6189-8251) /uL (unknown) (no (unknown) (unknown) Neut % (Auto) (units ( unknown) date) 95.3 H (50-75) % unknown) (unknown) (no (unknown) (unknown) No Action (units (unkn own) date) unknown) (unknown) (no (unknown) (unknown) Ondansetron HCl (units (unknown) date) (Ondansetron 4 unknown) Mg/2 Ml Inj) 4 mg IV NOW PRN (unknown) (no (unknown) (unknown) Ordered: (units (unkno wn) date) unknown) (unknown) (no (unknown) (unknown) Orders (units (unkno wn) date) unknown) (unknown) (no (unknown) (unknown) Other No (units (unkno wn) date) pertinent family unknown) history in first degree relatives (unknown) (no (unknown) (unknown) Oxygen Delivery (units (unknown) date) Method 05/08/22 unknown) 17:33 (unknown) (no (unknown) (unknown) Oxygen Delivery (units (unknown) date) Method Room Air unknown) Room Air (unknown) (no (unknown) (unknown) PRN Reason: (units (un known) date) Nausea And unknown) Vomiting (unknown) (no (unknown) (unknown) PT 10.4 (units (unkno wn) date) (10.1-12.7) unknown) SECONDS (unknown) (no (unknown) (unknown) Pantoprazole (units (u nknown) date) Sodium unknown) (Pantoprazole 40 Mg Vial) 80 mg IV NOW ONE (unknown) (no (unknown) (unknown) Partial (units (unkno wn) date) Thromboplastin unknown) Time Stat (unknown) (no (unknown) (unknown) Patient History (units (unknown) date) unknown) (unknown) (no (unknown) (unknown) Patient: (units (unkno wn) date) Sky Gaffney unknown) MR#: [id number] (unknown) (no (unknown) (unknown) Penicillins (units (un known) date) Allergy Severe unknown) Anaphylaxis Verified 01/02/22 08:42 (unknown) (no (unknown) (unknown) Plt Count 306 (units ( unknown) date) (150-400) X103/uL unknown) (unknown) (no (unknown) (unknown) Prescriptions: (units (unknown) date) unknown) (unknown) (no (unknown) (unknown) Previous Rx's (units ( unknown) date) unknown) (unknown) (no (unknown) (unknown) Prothrombin Time (units (unknown) date) INR Stat unknown) (unknown) (no (unknown) (unknown) Pulse Oximetry 99 (units (unknown) date) 05/08/22 17:33 unknown) (unknown) (no (unknown) (unknown) Pulse Oximetry 99 (units (unknown) date) 98 unknown) (unknown) (no (unknown) (unknown) Pulse Rate 127 H (units (unknown) date) 05/08/22 17:33 unknown) (unknown) (no (unknown) (unknown) Pulse Rate 127 H (units (unknown) date) 131 H 130 H unknown) (unknown) (no (unknown) (unknown) RBC 4.27 L (units (unk nown) date) (4.5-5.9) X106/uL unknown) (unknown) (no (unknown) (unknown) RDW 14.2 (units (unkno wn) date) (11.6-14.8) % unknown) (unknown) (no (unknown) (unknown) ROS Unobtainable: (units (unknown) date) All systems unknown) reviewed + are unremarkable except as noted in HPI (unknown) (no (unknown) (unknown) RUQ pain (units (unkno wn) date) unknown) (unknown) (no (unknown) (unknown) Rectal pain (units (un known) date) unknown) (unknown) (no (unknown) (unknown) Referrals: (units (unk nown) date) unknown) (unknown) (no (unknown) (unknown) Related Data (units (u nknown) date) unknown) (unknown) (no (unknown) (unknown) Respiratory Rate (units (unknown) date) 20 05/08/22 17:33 unknown) (unknown) (no (unknown) (unknown) Respiratory Rate (units (unknown) date) 20 14 13 unknown) (unknown) (no (unknown) (unknown) Result diagrams: (units (unknown) date) unknown) (unknown) (no (unknown) (unknown) Review of Systems (units (unknown) date) unknown) (unknown) (no (unknown) (unknown) Rx Instructions: (units (unknown) date) unknown) (unknown) (no (unknown) (unknown) See Rx (units (unkno wn) date) Instructions unknown) .ROUTE .COMPLEX Qty: 90 1RF (unknown) (no (unknown) (unknown) Signed By: (units (unk nown) date) unknown) (unknown) (no (unknown) (unknown) Smoker (units (unkno wn) date) unknown) (unknown) (no (unknown) (unknown) Smoking Status: (units (unknown) date) Current every day unknown) smoker (unknown) (no (unknown) (unknown) Social History (units (unknown) date) (Reviewed 05/08/22 unknown) @ 18:26 by Marylu Arce DO) (unknown) (no (unknown) (unknown) Source: patient (units (unknown) date) unknown) (unknown) (no (unknown) (unknown) Stated complaint: (units (unknown) date) GI Bleed back pain unknown) (unknown) (no (unknown) (unknown) Status post (units (un known) date) cholecystectomy unknown) (unknown) (no (unknown) (unknown) Status post (units (un known) date) exploratory unknown) laparotomy (unknown) (no (unknown) (unknown) Status post (units (un known) date) rotator cuff unknown) repair (unknown) (no (unknown) (unknown) Stop: 05/08/22 (units (unknown) date) 17:49 unknown) (unknown) (no (unknown) (unknown) Substance Use (units ( unknown) date) Type: does not use unknown) (unknown) (no (unknown) (unknown) Surgical History (units (unknown) date) (Reviewed 05/08/22 unknown) @ 18:26 by Marylu Arce DO) (unknown) (no (unknown) (unknown) TAKE 1 CAPSULE BY (units (unknown) date) MOUTH DAILY unknown) (unknown) (no (unknown) (unknown) Temperature 98.4 (units (unknown) date) F 05/08/22 17:33 unknown) (unknown) (no (unknown) (unknown) Temperature 98.4 (units (unknown) date) F unknown) (unknown) (no (unknown) (unknown) Time Seen by (units (u nknown) date) Provider: 05/08/22 unknown) 18:25 (unknown) (no (unknown) (unknown) Type and Screen (units (unknown) date) Stat unknown) (unknown) (no (unknown) (unknown) Urine Dip (units (unkn own) date) unknown) (unknown) (no (unknown) (unknown) Urine Microscopic (units (unknown) date) Stat unknown) (unknown) (no (unknown) (unknown) Urine Specific (units (unknown) date) [place] 1.030 unknown) (unknown) (no (unknown) (unknown) Vital Signs - 8 (units (unknown) date) hr unknown) (unknown) (no (unknown) (unknown) Vital Signs (units (un known) date) unknown) (unknown) (no (unknown) (unknown) Vital signs: (units (u nknown) date) unknown) (unknown) (no (unknown) (unknown) WBC 22.1 H (units (unk nown) date) (4.5-11.0) X103/uL unknown) (unknown) (no (unknown) (unknown) [Embedded Image (units (unknown) date) Not Available] unknown) (unknown) (no (unknown) (unknown) alcohol intake (units (unknown) date) frequency: 3 or unknown) more drinks per day (unknown) (no (unknown) (unknown) alcohol intake: (units (unknown) date) current unknown) (unknown) (no (unknown) (unknown) and below (units (unkn own) date) unknown) (unknown) (no (unknown) (unknown) celecoxib 200 mg (units (unknown) date) capsule See Rx unknown) Instructions .Route 03/23/21 (unknown) (no (unknown) (unknown) celecoxib 200 mg (units (unknown) date) capsule unknown) (unknown) (no (unknown) (unknown) cyclobenzaprine (units (unknown) date) 10 mg tablet 10 mg unknown) PO TID PRN Back Pain #90 tabs 11/22/18 (unknown) (no (unknown) (unknown) cyclobenzaprine (units (unknown) date) 10 mg tablet unknown) (unknown) (no (unknown) (unknown) household (units (unkn own) date) members: spouse unknown) (unknown) (no (unknown) (unknown) hydrocodone 5 (units ( unknown) date) mg-acetaminophen unknown) 325 1 tab PO Q6H PRN 03/23/21 01/02/22 (unknown) (no (unknown) (unknown) hydrocodone-aceta (units (unknown) date) minophen 5-325 mg unknown) tablet (unknown) (no (unknown) (unknown) marital status: (units (unknown) date) unknown) (unknown) (no (unknown) (unknown) mg tablet (units (unkn own) date) unknown) (unknown) (no (unknown) (unknown) omeprazole 20 mg (units (unknown) date) capsule,delayed 20 unknown) mg PO DAILY 09/22/20 01/02/22 (unknown) (no (unknown) (unknown) omeprazole 20 mg (units (unknown) date) capsule,delayed unknown) release(DR/EC) (unknown) (no (unknown) (unknown) quetiapine 100 mg (units (unknown) date) tablet 100 mg PO unknown) BEDTIME 01/02/22 01/02/22 (unknown) (no (unknown) (unknown) quetiapine 100 mg (units (unknown) date) tablet unknown) (unknown) (no (unknown) (unknown) release (units (unkno wn) date) unknown) (unknown) (no (unknown) (unknown) substance use (units ( unknown) date) type: does not use unknown) Result panel 245 (unknown) (no (unknown) (unknown) (no value) (units (unk nown) date) unknown) (unknown) (no (unknown) (unknown) .COMPLEX #90 caps (units (unknown) date) unknown) (unknown) (no (unknown) (unknown) 05/08/22 05/08/22 (units (unknown) date) Range/Units unknown) (unknown) (no (unknown) (unknown) 05/08/22 17:30 (units (unknown) date) unknown) (unknown) (no (unknown) (unknown) 05/08/22 17:55 (units (unknown) date) unknown) (unknown) (no (unknown) (unknown) 05/08/22 18:00 (units (unknown) date) unknown) (unknown) (no (unknown) (unknown) 05/08/22 (units (unkno wn) date) unknown) (unknown) (no (unknown) (unknown) [id number] (units (unkno wn) date) unknown) (unknown) (no (unknown) (unknown) 1 tab PO Q6H PRN (units (unknown) date) unknown) (unknown) (no (unknown) (unknown) 10 mg PO TID PRN (units (unknown) date) (Reason: Back unknown) Pain) Qty: 90 2RF (unknown) (no (unknown) (unknown) 100 mg PO BEDTIME (units (unknown) date) unknown) (unknown) (no (unknown) (unknown) 17:30 17:30 (units (un known) date) unknown) (unknown) (no (unknown) (unknown) 17:33 05/08/22 (units (unknown) date) unknown) (unknown) (no (unknown) (unknown) 17:49 05/08/22 (units (unknown) date) unknown) (unknown) (no (unknown) (unknown) 18:00 (units (unkno wn) date) unknown) (unknown) (no (unknown) (unknown) 20 mg PO DAILY (units (unknown) date) unknown) (unknown) (no (unknown) (unknown) APTT 28 (26-36) (units (unknown) date) SECONDS unknown) (unknown) (no (unknown) (unknown) Age/Sex: 56 / M (units (unknown) date) unknown) (unknown) (no (unknown) (unknown) Alcohol type: (units ( unknown) date) beer unknown) (unknown) (no (unknown) (unknown) Alcoholism (units (unk nown) date) unknown) (unknown) (no (unknown) (unknown) Allergies (units (unkn own) date) unknown) (unknown) (no (unknown) (unknown) Allergy/AdvReac (units (unknown) date) Type Severity unknown) Reaction Status Date / Time (unknown) (no (unknown) (unknown) Baso # (Auto) 0 (units (unknown) date) (0-100) /uL unknown) (unknown) (no (unknown) (unknown) Baso % (Auto) 0.1 (units (unknown) date) (0-2) % unknown) (unknown) (no (unknown) (unknown) Bedside Urine (units ( unknown) date) Bilirubin - unknown) Negative (unknown) (no (unknown) (unknown) Bedside Urine (units ( unknown) date) Glucose Negative unknown) (unknown) (no (unknown) (unknown) Bedside Urine (units ( unknown) date) Ketone +++ 80 unknown) (unknown) (no (unknown) (unknown) Bedside Urine (units ( unknown) date) Leukocytes - unknown) Negative (unknown) (no (unknown) (unknown) Bedside Urine (units ( unknown) date) Nitrite - Negative unknown) (unknown) (no (unknown) (unknown) Bedside Urine (units ( unknown) date) Occult Blood - unknown) Negative (unknown) (no (unknown) (unknown) Bedside Urine (units ( unknown) date) Protein + 30 unknown) (unknown) (no (unknown) (unknown) Bedside Urine (units ( unknown) date) Urobilinogen - unknown) Negative (unknown) (no (unknown) (unknown) Bedside Urine pH (units (unknown) date) 6.0 unknown) (unknown) (no (unknown) (unknown) Blood Pressure (units (unknown) date) 132/85 05/08/22 unknown) 17:33 (unknown) (no (unknown) (unknown) Blood Pressure (units (unknown) date) 132 unknown) (unknown) (no (unknown) (unknown) Chief complaint: (units (unknown) date) GI Bleed unknown) (unknown) (no (unknown) (unknown) Chronic back pain (units (unknown) date) unknown) (unknown) (no (unknown) (unknown) Complete Blood (units (unknown) date) Count AUTO DIFF unknown) Stat (unknown) (no (unknown) (unknown) Comprehensive (units ( unknown) date) Metabolic Panel unknown) Stat (unknown) (no (unknown) (unknown) Lavelle Griffin, (units (unknown) date) [Primary Care unknown) Provider] (unknown) (no (unknown) (unknown) Course (units (unkno wn) date) unknown) (unknown) (no (unknown) (unknown) : 1965 (units (unknown) date) Acct:[id number] unknown) (unknown) (no (unknown) (unknown) Date of Service: (units (unknown) date) 05/08/22 unknown) (unknown) (no (unknown) (unknown) Degenerative disc (units (unknown) date) disease unknown) (unknown) (no (unknown) (unknown) Departure (units (unkn own) date) unknown) (unknown) (no (unknown) (unknown) Discharge Plan (units (unknown) date) unknown) (unknown) (no (unknown) (unknown) Discontinued (units (u nknown) date) Medications unknown) (unknown) (no (unknown) (unknown) Dose Instruction: (units (unknown) date) unknown) (unknown) (no (unknown) (unknown) ED Orders (units (unkn own) date) unknown) (unknown) (no (unknown) (unknown) EKG-12 Lead Stat (units (unknown) date) unknown) (unknown) (no (unknown) (unknown) ER Physician: (units ( unknown) date) Marylu Arce D.O. unknown) (unknown) (no (unknown) (unknown) Emergency Report (units (unknown) date) unknown) (unknown) (no (unknown) (unknown) Eos # (Auto) 0 (units (unknown) date) (0-450) /uL unknown) (unknown) (no (unknown) (unknown) Eos % (Auto) 0.0 (units (unknown) date) L (2-4) % unknown) (unknown) (no (unknown) (unknown) Esterase (units (unkno wn) date) unknown) (unknown) (no (unknown) (unknown) Exam (units (unkno wn) date) unknown) (unknown) (no (unknown) (unknown) Facet (units (unkno wn) date) arthropathy, unknown) lumbar (unknown) (no (unknown) (unknown) Family History (units (unknown) date) (Reviewed 05/08/22 unknown) @ 18:26 by Marylu Arce DO) (unknown) (no (unknown) (unknown) [place] (units (unkno wn) date) unknown) (unknown) (no (unknown) (unknown) Gait instability (units (unknown) date) unknown) (unknown) (no (unknown) (unknown) General (units (unkno wn) date) unknown) (unknown) (no (unknown) (unknown) HPI - GI Bleed (units (unknown) date) unknown) (unknown) (no (unknown) (unknown) Hct 42.0 (41-53) (units (unknown) date) % unknown) (unknown) (no (unknown) (unknown) Hepatic steatosis (units (unknown) date) unknown) (unknown) (no (unknown) (unknown) Herniated nucleus (units (unknown) date) pulposus, L4-5 unknown) (unknown) (no (unknown) (unknown) Hgb 13.5 (units (unkno wn) date) (13.5-17.5) g/dL unknown) (unknown) (no (unknown) (unknown) History of (units (unk nown) date) colostomy reversal unknown) (unknown) (no (unknown) (unknown) Home Medications (units (unknown) date) unknown) (unknown) (no (unknown) (unknown) INR 0.9 (0.9-1.3) (units (unknown) date) unknown) (unknown) (no (unknown) (unknown) Initial Vital (units ( unknown) date) Signs unknown) (unknown) (no (unknown) (unknown) Initial Vital (units ( unknown) date) Signs: unknown) (unknown) (no (unknown) (unknown) [facility] (units (unknown) date) [address] unknown) [place] [address] (unknown) (no (unknown) (unknown) Lab Data (units (unkno wn) date) unknown) (unknown) (no (unknown) (unknown) Lab Results (units (un known) date) unknown) (unknown) (no (unknown) (unknown) Labs: (units (unkno wn) date) unknown) (unknown) (no (unknown) (unknown) Limitations: no (units (unknown) date) limitations unknown) (unknown) (no (unknown) (unknown) Lymph # (Auto) (units (unknown) date) 700 L (4604-5857) unknown) /uL (unknown) (no (unknown) (unknown) Lymph % (Auto) (units (unknown) date) 3.0 L (25-40) % unknown) (unknown) (no (unknown) (unknown) MCH 31.7 (26-34) (units (unknown) date) PG unknown) (unknown) (no (unknown) (unknown) MCHC 32.3 (30-36) (units (unknown) date) % unknown) (unknown) (no (unknown) (unknown) MCV 98.2 (80-100) (units (unknown) date) fL unknown) (unknown) (no (unknown) (unknown) MDM - GI Bleed (units (unknown) date) unknown) (unknown) (no (unknown) (unknown) Medical History (units (unknown) date) unknown) (unknown) (no (unknown) (unknown) Medication (units (unk nown) date) Instructions unknown) Recorded Confirmed (unknown) (no (unknown) (unknown) Medication (units (unk nown) date) Instructions unknown) Recorded (unknown) (no (unknown) (unknown) Melanotic stools (units (unknown) date) unknown) (unknown) (no (unknown) (unknown) Mode of arrival: (units (unknown) date) EMS unknown) (unknown) (no (unknown) (unknown) [place] # (Auto) 400 (units (unknown) date) (0-900) /uL unknown) (unknown) (no (unknown) (unknown) [place] % (Auto) 1.6 (units (unknown) date) L (3-14) % unknown) (unknown) (no (unknown) (unknown) Neut # (Auto) (units ( unknown) date) 74145 H unknown) (6428-9090) /uL (unknown) (no (unknown) (unknown) Neut % (Auto) (units ( unknown) date) 95.3 H (50-75) % unknown) (unknown) (no (unknown) (unknown) No Action (units (unkn own) date) unknown) (unknown) (no (unknown) (unknown) Ondansetron HCl (units (unknown) date) (Ondansetron 4 unknown) Mg/2 Ml Inj) 4 mg IV NOW PRN (unknown) (no (unknown) (unknown) Ordered: (units (unkno wn) date) unknown) (unknown) (no (unknown) (unknown) Orders (units (unkno wn) date) unknown) (unknown) (no (unknown) (unknown) Other No (units (unkno wn) date) pertinent family unknown) history in first degree relatives (unknown) (no (unknown) (unknown) Oxygen Delivery (units (unknown) date) Method 05/08/22 unknown) 17:33 (unknown) (no (unknown) (unknown) Oxygen Delivery (units (unknown) date) Method Room Air unknown) Room Air (unknown) (no (unknown) (unknown) PRN Reason: (units (un known) date) Nausea And unknown) Vomiting (unknown) (no (unknown) (unknown) PT 10.4 (units (unkno wn) date) (10.1-12.7) unknown) SECONDS (unknown) (no (unknown) (unknown) Pantoprazole (units (u nknown) date) Sodium unknown) (Pantoprazole 40 Mg Vial) 80 mg IV NOW ONE (unknown) (no (unknown) (unknown) Partial (units (unkno wn) date) Thromboplastin unknown) Time Stat (unknown) (no (unknown) (unknown) Patient History (units (unknown) date) unknown) (unknown) (no (unknown) (unknown) Patient: (units (unkno wn) date) Sky Gaffney unknown) MR#: [id number] (unknown) (no (unknown) (unknown) Penicillins (units (un known) date) Allergy Severe unknown) Anaphylaxis Verified 01/02/22 08:42 (unknown) (no (unknown) (unknown) Plt Count 306 (units ( unknown) date) (150-400) X103/uL unknown) (unknown) (no (unknown) (unknown) Prescriptions: (units (unknown) date) unknown) (unknown) (no (unknown) (unknown) Previous Rx's (units ( unknown) date) unknown) (unknown) (no (unknown) (unknown) Prothrombin Time (units (unknown) date) INR Stat unknown) (unknown) (no (unknown) (unknown) Pulse Oximetry 99 (units (unknown) date) 05/08/22 17:33 unknown) (unknown) (no (unknown) (unknown) Pulse Oximetry 99 (units (unknown) date) 98 unknown) (unknown) (no (unknown) (unknown) Pulse Rate 127 H (units (unknown) date) 05/08/22 17:33 unknown) (unknown) (no (unknown) (unknown) Pulse Rate 127 H (units (unknown) date) 131 H 130 H unknown) (unknown) (no (unknown) (unknown) RBC 4.27 L (units (unk nown) date) (4.5-5.9) X106/uL unknown) (unknown) (no (unknown) (unknown) RDW 14.2 (units (unkno wn) date) (11.6-14.8) % unknown) (unknown) (no (unknown) (unknown) ROS Unobtainable: (units (unknown) date) All systems unknown) reviewed + are unremarkable except as noted in HPI (unknown) (no (unknown) (unknown) RUQ pain (units (unkno wn) date) unknown) (unknown) (no (unknown) (unknown) Rectal pain (units (un known) date) unknown) (unknown) (no (unknown) (unknown) Referrals: (units (unk nown) date) unknown) (unknown) (no (unknown) (unknown) Related Data (units (u nknown) date) unknown) (unknown) (no (unknown) (unknown) Respiratory Rate (units (unknown) date) 20 05/08/22 17:33 unknown) (unknown) (no (unknown) (unknown) Respiratory Rate (units (unknown) date) 20 14 13 unknown) (unknown) (no (unknown) (unknown) Result diagrams: (units (unknown) date) unknown) (unknown) (no (unknown) (unknown) Review of Systems (units (unknown) date) unknown) (unknown) (no (unknown) (unknown) Rx Instructions: (units (unknown) date) unknown) (unknown) (no (unknown) (unknown) See Rx (units (unkno wn) date) Instructions unknown) .ROUTE .COMPLEX Qty: 90 1RF (unknown) (no (unknown) (unknown) Signed By: (units (unk nown) date) unknown) (unknown) (no (unknown) (unknown) Smoker (units (unkno wn) date) unknown) (unknown) (no (unknown) (unknown) Smoking Status: (units (unknown) date) Current every day unknown) smoker (unknown) (no (unknown) (unknown) Social History (units (unknown) date) (Reviewed 05/08/22 unknown) @ 18:26 by Marylu Arce DO) (unknown) (no (unknown) (unknown) Source: patient (units (unknown) date) unknown) (unknown) (no (unknown) (unknown) Stated complaint: (units (unknown) date) GI Bleed back pain unknown) (unknown) (no (unknown) (unknown) Status post (units (un known) date) cholecystectomy unknown) (unknown) (no (unknown) (unknown) Status post (units (un known) date) exploratory unknown) laparotomy (unknown) (no (unknown) (unknown) Status post (units (un known) date) rotator cuff unknown) repair (unknown) (no (unknown) (unknown) Stop: 05/08/22 (units (unknown) date) 17:49 unknown) (unknown) (no (unknown) (unknown) Substance Use (units ( unknown) date) Type: does not use unknown) (unknown) (no (unknown) (unknown) Surgical History (units (unknown) date) (Reviewed 05/08/22 unknown) @ 18:26 by Marylu Arce DO) (unknown) (no (unknown) (unknown) TAKE 1 CAPSULE BY (units (unknown) date) MOUTH DAILY unknown) (unknown) (no (unknown) (unknown) Temperature 98.4 (units (unknown) date) F 05/08/22 17:33 unknown) (unknown) (no (unknown) (unknown) Temperature 98.4 (units (unknown) date) F unknown) (unknown) (no (unknown) (unknown) Time Seen by (units (u nknown) date) Provider: 05/08/22 unknown) 18:25 (unknown) (no (unknown) (unknown) Type and Screen (units (unknown) date) Stat unknown) (unknown) (no (unknown) (unknown) Urine Dip (units (unkn own) date) unknown) (unknown) (no (unknown) (unknown) Urine Microscopic (units (unknown) date) Stat unknown) (unknown) (no (unknown) (unknown) Urine Specific (units (unknown) date) [place] 1.030 unknown) (unknown) (no (unknown) (unknown) Vital Signs - 8 (units (unknown) date) hr unknown) (unknown) (no (unknown) (unknown) Vital Signs (units (un known) date) unknown) (unknown) (no (unknown) (unknown) Vital signs: (units (u nknown) date) unknown) (unknown) (no (unknown) (unknown) WBC 22.1 H (units (unk nown) date) (4.5-11.0) X103/uL unknown) (unknown) (no (unknown) (unknown) [Embedded Image (units (unknown) date) Not Available] unknown) (unknown) (no (unknown) (unknown) alcohol intake (units (unknown) date) frequency: 3 or unknown) more drinks per day (unknown) (no (unknown) (unknown) alcohol intake: (units (unknown) date) current unknown) (unknown) (no (unknown) (unknown) and below (units (unkn own) date) unknown) (unknown) (no (unknown) (unknown) celecoxib 200 mg (units (unknown) date) capsule See Rx unknown) Instructions .Route 03/23/21 (unknown) (no (unknown) (unknown) celecoxib 200 mg (units (unknown) date) capsule unknown) (unknown) (no (unknown) (unknown) cyclobenzaprine (units (unknown) date) 10 mg tablet 10 mg unknown) PO TID PRN Back Pain #90 tabs 11/22/18 (unknown) (no (unknown) (unknown) cyclobenzaprine (units (unknown) date) 10 mg tablet unknown) (unknown) (no (unknown) (unknown) household (units (unkn own) date) members: spouse unknown) (unknown) (no (unknown) (unknown) hydrocodone 5 (units ( unknown) date) mg-acetaminophen unknown) 325 1 tab PO Q6H PRN 03/23/21 01/02/22 (unknown) (no (unknown) (unknown) hydrocodone-aceta (units (unknown) date) minophen 5-325 mg unknown) tablet (unknown) (no (unknown) (unknown) marital status: (units (unknown) date) unknown) (unknown) (no (unknown) (unknown) mg tablet (units (unkn own) date) unknown) (unknown) (no (unknown) (unknown) omeprazole 20 mg (units (unknown) date) capsule,delayed 20 unknown) mg PO DAILY 09/22/20 01/02/22 (unknown) (no (unknown) (unknown) omeprazole 20 mg (units (unknown) date) capsule,delayed unknown) release(DR/EC) (unknown) (no (unknown) (unknown) quetiapine 100 mg (units (unknown) date) tablet 100 mg PO unknown) BEDTIME 01/02/22 01/02/22 (unknown) (no (unknown) (unknown) quetiapine 100 mg (units (unknown) date) tablet unknown) (unknown) (no (unknown) (unknown) release (units (unkno wn) date) unknown) (unknown) (no (unknown) (unknown) substance use (units ( unknown) date) type: does not use unknown) Result panel 246 (unknown) (no date) (unknown) (unknown) > 60 ml/min (unkn own) (unknown) (no date) (unknown) (unknown) > 60 ml/min (unkn own) (unknown) (no date) (unknown) (unknown) 0.8 mg/dl (unkn own) (unknown) (no date) (unknown) (unknown) 1.11 mg/dl (unkn own) (unknown) (no date) (unknown) (unknown) 1.3 (units unknown) (unknown) (unknown) (no date) (unknown) (unknown) 10 mmol/l (unkn own) (unknown) (no date) (unknown) (unknown) 10.8 (units unknown) (unknown) (unknown) (no date) (unknown) (unknown) 101 mmol/l (unkn own) (unknown) (no date) (unknown) (unknown) 115 mg/dl (unkn own) (unknown) (no date) (unknown) (unknown) 115 mg/dl (unkn own) (unknown) (no date) (unknown) (unknown) 12 mg/dl (unkn own) (unknown) (no date) (unknown) (unknown) 130 u/l (unkn own) (unknown) (no date) (unknown) (unknown) 143 mmol/l (unkn own) (unknown) (no date) (unknown) (unknown) 3.5 g/dl (unkn own) (unknown) (no date) (unknown) (unknown) 36 iu/l (unkn own) (unknown) (no date) (unknown) (unknown) 4.7 g/dl (unkn own) (unknown) (no date) (unknown) (unknown) 5.0 mmol/l (unkn own) (unknown) (no date) (unknown) (unknown) 8.2 g/dl (unkn own) (unknown) (no date) (unknown) (unknown) 8.4 mg/dl (unkn own) (unknown) (no date) (unknown) (unknown) 87 iu/l (unkn own) Result panel 247 (unknown) (no date) (unknown) (unknown) 190 mg/dl (unkn own) (unknown) (no date) (unknown) (unknown) 190 mg/dl (unkn own) (unknown) (no date) (unknown) (unknown) Negative (units (unkn own) unknown) (unknown) (no date) (unknown) (unknown) Normal (units (unkn own) unknown) (unknown) (no date) (unknown) (unknown) Positive (units (unkn own) unknown) Result panel 248 (unknown) (no date) (unknown) (unknown) 7.0 mmol/l (unkn own) Result panel 249 (unknown) (no date) (unknown) (unknown) 7.0 mmol/l (unkn own) (unknown) (no date) (unknown) (unknown) 7.0 mmol/l (unkn own) Result panel 250 (unknown) (no date) (unknown) (unknown) 0-1/HPF (units (unkn own) unknown) (unknown) (no date) (unknown) (unknown) 0-1/HPF (units (unkn own) unknown) (unknown) (no date) (unknown) (unknown) 0-1/LPF (units (unkn own) unknown) (unknown) (no date) (unknown) (unknown) 1 (units (unkn own) unknown) (unknown) (no date) (unknown) (unknown) Cult Not (units (unkn own) Indicated unknown) (unknown) (no date) (unknown) (unknown) None Seen (units (unk nown) unknown) (unknown) (no date) (unknown) (unknown) None Seen (units (unk nown) unknown) Result panel 251 (unknown) (no (unknown) (unknown) (no value) (units (unk nown) date) unknown) (unknown) (no (unknown) (unknown) [id number] (units (unkno wn) date) unknown) (unknown) (no (unknown) (unknown) 05/08/22 (units (unkno wn) date) unknown) (unknown) (no (unknown) (unknown) 1. No acute (units (un known) date) fracture or unknown) subluxation. (unknown) (no (unknown) (unknown) 1. No acute (units (un known) date) intracranial unknown) abnormality. (unknown) (no (unknown) (unknown) 1. No acute (units (un known) date) traumatic unknown) abnormality within the chest, abdomen, or pelvis. (unknown) (no (unknown) (unknown) [address] [place] [address] (units (unknown) date) unknown) (unknown) (no (unknown) (unknown) 2. Diffuse mild (units (unknown) date) esophageal wall unknown) thickening consistent with a nonspecific (unknown) (no (unknown) (unknown) 2. Mild chronic (units (unknown) date) white matter small unknown) vessel ischemic changes and cerebral volume (unknown) (no (unknown) (unknown) 3. Diffuse mild (units (unknown) date) wall thickening unknown) throughout the colon consistent with an (unknown) (no (unknown) (unknown) 4. Hepatic (units (unk nown) date) steatosis. unknown) (unknown) (no (unknown) (unknown) ABDOMEN: (units (unkno wn) date) unknown) (unknown) (no (unknown) (unknown) Abdominal Nodes: (units (unknown) date) No retroperitoneal unknown) or mesenteric adenopathy by size criteria. (unknown) (no (unknown) (unknown) Accession Number: (units (unknown) date) [id number] unknown) (unknown) (no (unknown) (unknown) Accession Number: (units (unknown) date) [id number] unknown) (unknown) (no (unknown) (unknown) Accession Number: (units (unknown) date) [id number] unknown) (unknown) (no (unknown) (unknown) Additional 7 mm (units (unknown) date) thick coronal unknown) maximum intensity projection (MIP) reformats (unknown) (no (unknown) (unknown) Adrenal Glands: (units (unknown) date) No adrenal unknown) nodules. (unknown) (no (unknown) (unknown) After the (units (unkn own) date) administration of unknown) intravenous contrast, 5 mm thick sections acquired (unknown) (no (unknown) (unknown) Age/Sex: 56 / M (units (unknown) date) Date of Service: unknown) (unknown) (no (unknown) (unknown) [place], [place] (units ( unknown) date) [address] unknown) (unknown) (no (unknown) (unknown) Approved by: (units (u nknown) date) Robert Macario, unknown) M.D. on 05/08/2022 at 20:08 (unknown) (no (unknown) (unknown) Approved by: (units (u nknown) date) Robert Macario, unknown) M.D. on 05/08/2022 at 20:17 (unknown) (no (unknown) (unknown) Approved by: (units (u nknown) date) Robert Macario, unknown) M.D. on 05/08/2022 at 20:29 (unknown) (no (unknown) (unknown) Axillae: No (units (un known) date) lymphadenopathy by unknown) size criteria. (unknown) (no (unknown) (unknown) Biliary ducts: No (units (unknown) date) biliary ductal unknown) dilatation. (unknown) (no (unknown) (unknown) Bladder: (units (unkno wn) date) Unremarkable. unknown) (unknown) (no (unknown) (unknown) Bones: No acute (units (unknown) date) fractures unknown) identified. Visualized osseous structures (unknown) (no (unknown) (unknown) Bones: No acute (units (unknown) date) fractures unknown) identified. (unknown) (no (unknown) (unknown) Bones: No acute (units (unknown) date) fractures or unknown) subluxation. There is minimal anterolisthesis at (unknown) (no (unknown) (unknown) Brain: No (units (unkn own) date) intracranial unknown) hemorrhage, mass, or mass effect. There are (unknown) (no (unknown) (unknown) C4-C5 (units (unkno wn) date) unknown) (unknown) (no (unknown) (unknown) CHEST: (units (unkno wn) date) unknown) (unknown) (no (unknown) (unknown) COMPARISON: None. (units (unknown) date) unknown) (unknown) (no (unknown) (unknown) CSF spaces: Basal (units (unknown) date) cisterns are unknown) patent. No extra-axial fluid collections. (unknown) (no (unknown) (unknown) CT Scan Report (units (unknown) date) unknown) (unknown) (no (unknown) (unknown) Chest Wall: (units (un known) date) Unremarkable. unknown) (unknown) (no (unknown) (unknown) : 1965 (units (unknown) date) Acct:[id number] unknown) (unknown) (no (unknown) (unknown) Dictated by: (units (u nknown) date) Robert Macario, unknown) M.D. on 05/08/2022 at 20:02 (unknown) (no (unknown) (unknown) Dictated by: (units (u nknown) date) Robert Macario, unknown) M.D. on 05/08/2022 at 20:08 (unknown) (no (unknown) (unknown) Dictated by: (units (u nknown) date) Robert Macario, unknown) M.D. on 05/08/2022 at 20:17 (unknown) (no (unknown) (unknown) Esophagus: There (units (unknown) date) is mild concentric unknown) esophageal wall thickening. No hiatal (unknown) (no (unknown) (unknown) FINDINGS: (units (unkn own) date) unknown) (unknown) (no (unknown) (unknown) Gallbladder: (units (u nknown) date) Surgically absent. unknown) (unknown) (no (unknown) (unknown) Heart: Heart size (units (unknown) date) is normal. No unknown) pericardial effusion. (unknown) (no (unknown) (unknown) IMPRESSION: (units (un known) date) unknown) (unknown) (no (unknown) (unknown) INDICATIONS: etoh (units (unknown) date) withdrawls, falls, unknown) bruising chest, kilg[place], vomiting (unknown) (no (unknown) (unknown) Image quality: (units (unknown) date) Excellent. unknown) (unknown) (no (unknown) (unknown) [facility] (units (unknown) date) unknown) (unknown) (no (unknown) (unknown) Kidneys and (units (un known) date) [place]: No unknown) hydronephrosis. (unknown) (no (unknown) (unknown) Liver: No hepatic (units (unknown) date) lacerations or unknown) perihepatic fluid collections. There is (unknown) (no (unknown) (unknown) Loc: ED (units (unkno wn) date) unknown) (unknown) (no (unknown) (unknown) [place]: No (units (unknown) date) lymphadenopathy by unknown) size criteria. (unknown) (no (unknown) (unknown) Lungs and (units (unkn own) date) Airways: No unknown) pulmonary contusions or lacerations. No acute (unknown) (no (unknown) (unknown) Mediastinum and (units (unknown) date) [place]: No unknown) lymphadenopathy by size criteria. No definite (unknown) (no (unknown) (unknown) Miscellaneous: No (units (unknown) date) inguinal hernias unknown) are seen. (unknown) (no (unknown) (unknown) Noncontrast 3 mm (units (unknown) date) thick sections unknown) acquired from the skull base to the T4 level. (unknown) (no (unknown) (unknown) Noncontrast 4.5 (units (unknown) date) mm thick angled unknown) axial sections acquired from the foramen magnum (unknown) (no (unknown) (unknown) Ordering (units (unkno wn) date) Provider: unknown) Marylu Arce D.O. (unknown) (no (unknown) (unknown) PELVIS: (units (unkno wn) date) unknown) (unknown) (no (unknown) (unknown) PROCEDURE: CT (units ( unknown) date) CERVICAL SPINE WO unknown) CON (unknown) (no (unknown) (unknown) PROCEDURE: CT (units ( unknown) date) CHEST ABD PEL W unknown) CON (unknown) (no (unknown) (unknown) PROCEDURE: CT (units ( unknown) date) HEAD/BRAIN WO CON unknown) (unknown) (no (unknown) (unknown) Pancreas: (units (unkn own) date) Unremarkable. unknown) (unknown) (no (unknown) (unknown) Patient: (units (unkno wn) date) Sky Gaffney unknown) MR#: [id number] (unknown) (no (unknown) (unknown) Pelvic Nodes: No (units (unknown) date) enlarged lymph unknown) nodes. (unknown) (no (unknown) (unknown) Pelvic Organs: (units (unknown) date) Unremarkable. unknown) (unknown) (no (unknown) (unknown) Peritoneum: No (units (unknown) date) abnormal unknown) intraperitoneal fluid. No free air. (unknown) (no (unknown) (unknown) [place]: No (units (unk nown) date) pneumothorax or unknown) pleural effusions. There is pleural-parenchyma l (unknown) (no (unknown) (unknown) Procedure: CT (units ( unknown) date) cervical spine wo unknown) con (unknown) (no (unknown) (unknown) Procedure: CT (units ( unknown) date) chest abd pel w unknown) con (unknown) (no (unknown) (unknown) Procedure: CT (units ( unknown) date) head/brain wo con unknown) (unknown) (no (unknown) (unknown) Sagittal (units (unkno wn) date) unknown) (unknown) (no (unknown) (unknown) Signed (units (unkno wn) date) unknown) (unknown) (no (unknown) (unknown) Sinuses: (units (unkno wn) date) Visualized sinuses unknown) and mastoids are clear. (unknown) (no (unknown) (unknown) Skull and face: (units (unknown) date) Calvarium and unknown) visualized facial bones are intact, without (unknown) (no (unknown) (unknown) Soft tissues: (units ( unknown) date) Prevertebral soft unknown) tissues are normal in thickness. No (unknown) (no (unknown) (unknown) Spleen: Normal in (units (unknown) date) size. No splenic unknown) lacerations or perisplenic fluid (unknown) (no (unknown) (unknown) Stomach and (units (un known) date) Bowel: Stomach and unknown) small bowel loops are normal in caliber and (unknown) (no (unknown) (unknown) TECHNIQUE: (units (unk nown) date) unknown) (unknown) (no (unknown) (unknown) There is mild (units ( unknown) date) unknown) (unknown) (no (unknown) (unknown) There is (units (unkno wn) date) unknown) (unknown) (no (unknown) (unknown) Thoracic Vessels: (units (unknown) date) The aorta and unknown) pulmonary arteries are normal in size. (unknown) (no (unknown) (unknown) Thyroid: (units (unkno wn) date) Visualized thyroid unknown) demonstrates no discrete nodules. (unknown) (no (unknown) (unknown) Ventral Wall: No (units (unknown) date) hernia. unknown) (unknown) (no (unknown) (unknown) Vessels: Aorta (units (unknown) date) and inferior vena unknown) cava are normal in size. (unknown) (no (unknown) (unknown) acquired (units (unkno wn) date) unknown) (unknown) (no (unknown) (unknown) acquired. (units (unkn own) date) unknown) (unknown) (no (unknown) (unknown) and coronal (units (un known) date) reformats were unknown) then constructed. For radiation dose reduction, the (unknown) (no (unknown) (unknown) arthropathy. (units (u nknown) date) Visualized unknown) superior ribs are intact. (unknown) (no (unknown) (unknown) as (units (unkno wn) date) unknown) (unknown) (no (unknown) (unknown) at C5-C6 with (units ( unknown) date) endplate sclerosis unknown) and osteophytosis. There is mild multilevel (unknown) (no (unknown) (unknown) automated (units (unkn own) date) unknown) (unknown) (no (unknown) (unknown) cerebral volume (units (unknown) date) loss, with unknown) resultant ventricular and sulcal prominence as well (unknown) (no (unknown) (unknown) chronic small (units ( unknown) date) unknown) (unknown) (no (unknown) (unknown) collections. (units (u nknown) date) unknown) (unknown) (no (unknown) (unknown) compatible with (units (unknown) date) an infectious or unknown) inflammatory colitis. (unknown) (no (unknown) (unknown) consistent with (units (unknown) date) scarring in the unknown) lung apices. (unknown) (no (unknown) (unknown) consolidation. (units (unknown) date) The unknown) (unknown) (no (unknown) (unknown) demonstrate no (units (unknown) date) unknown) (unknown) (no (unknown) (unknown) diffuse (units (unkno wn) date) unknown) (unknown) (no (unknown) (unknown) enhancement (units (un known) date) unknown) (unknown) (no (unknown) (unknown) esophagitis. (units (u nknown) date) unknown) (unknown) (no (unknown) (unknown) exposure control, (units (unknown) date) adjustment of mA unknown) and/or kV according to patient size. (unknown) (no (unknown) (unknown) facet joint (units (un known) date) unknown) (unknown) (no (unknown) (unknown) following (units (unkn own) date) unknown) (unknown) (no (unknown) (unknown) from the (units (unkno wn) date) unknown) (unknown) (no (unknown) (unknown) hematomas. No (units ( unknown) date) apical unknown) pneumothoraces. (unknown) (no (unknown) (unknown) hematomas. (units (unk nown) date) unknown) (unknown) (no (unknown) (unknown) hernia. (units (unkno wn) date) unknown) (unknown) (no (unknown) (unknown) hypoattenuation (units (unknown) date) of the liver unknown) consistent with fatty infiltration. (unknown) (no (unknown) (unknown) in the (units (unkno wn) date) unknown) (unknown) (no (unknown) (unknown) infectious or (units ( unknown) date) unknown) (unknown) (no (unknown) (unknown) inflammatory (units (u nknown) date) colitis. unknown) (unknown) (no (unknown) (unknown) intracranial (units (u nknown) date) internal carotid unknown) artery atherosclerosis. (unknown) (no (unknown) (unknown) lesions. (units (unkno wn) date) unknown) (unknown) (no (unknown) (unknown) loss. (units (unkno wn) date) unknown) (unknown) (no (unknown) (unknown) lung apices to (units (unknown) date) the symphysis. 2.5 unknown) mm thick coronal and sagittal reformats were (unknown) (no (unknown) (unknown) mediastinal (units (un known) date) unknown) (unknown) (no (unknown) (unknown) paravertebral (units ( unknown) date) unknown) (unknown) (no (unknown) (unknown) patient (units (unkno wn) date) unknown) (unknown) (no (unknown) (unknown) periventricular (units (unknown) date) and deep white unknown) matter hypodensities consistent with mild (unknown) (no (unknown) (unknown) present (units (unkno wn) date) unknown) (unknown) (no (unknown) (unknown) prominence of the (units (unknown) date) extra-axial spaces unknown) along the frontal lobes. (unknown) (no (unknown) (unknown) sigmoid colon. (units (unknown) date) There is diffuse unknown) mild colonic wall thickening and mucosal (unknown) (no (unknown) (unknown) size. (units (unkno wn) date) unknown) (unknown) (no (unknown) (unknown) subcortical, (units (u nknown) date) unknown) (unknown) (no (unknown) (unknown) suspicious focal (units (unknown) date) lesions. unknown) (unknown) (no (unknown) (unknown) suspicious (units (unk nown) date) unknown) (unknown) (no (unknown) (unknown) the kidneys (units (un known) date) unknown) (unknown) (no (unknown) (unknown) thickening (units (unk nown) date) unknown) (unknown) (no (unknown) (unknown) thickness. The (units (unknown) date) appendix is normal unknown) in appearance. Surgical sutures are present (unknown) (no (unknown) (unknown) through the (units (un known) date) lungs. Optional unknown) 10-minute delayed imaging may be performed from (unknown) (no (unknown) (unknown) to the bladder. (units (unknown) date) For radiation dose unknown) reduction, the following was used: (unknown) (no (unknown) (unknown) to the (units (unkno wn) date) unknown) (unknown) (no (unknown) (unknown) trachea and (units (un known) date) central airways unknown) are patent. (unknown) (no (unknown) (unknown) vertex, with (units (u nknown) date) coronal and unknown) sagittal reformats. For radiation dose reduction, the (unknown) (no (unknown) (unknown) vessel ischemic (units (unknown) date) changes. The unknown) cordon-white matter junction appears preserved. (unknown) (no (unknown) (unknown) wall (units (unkno wn) date) unknown) (unknown) (no (unknown) (unknown) was used: (units (unkn own) date) automated exposure unknown) control, adjustment of mA and/or kV according to (unknown) (no (unknown) (unknown) with slight (units (un known) date) reversal the unknown) cervical lordosis. Moderate degenerative disc disease Result panel 252 (unknown) (no (unknown) (unknown) (no value) (units (unk nown) date) unknown) (unknown) (no (unknown) (unknown) .COMPLEX #90 caps (units (unknown) date) unknown) (unknown) (no (unknown) (unknown) 05/08/22 05/08/22 (units (unknown) date) 05/08/22 unknown) Range/Units (unknown) (no (unknown) (unknown) 05/08/22 17:30 (units (unknown) date) unknown) (unknown) (no (unknown) (unknown) 05/08/22 17:55 (units (unknown) date) unknown) (unknown) (no (unknown) (unknown) 05/08/22 18:00 (units (unknown) date) unknown) (unknown) (no (unknown) (unknown) 05/08/22 19:02 (units (unknown) date) unknown) (unknown) (no (unknown) (unknown) 05/08/22 19:04 (units (unknown) date) unknown) (unknown) (no (unknown) (unknown) 05/08/22 (units (unkno wn) date) Range/Units unknown) (unknown) (no (unknown) (unknown) 05/08/22 (units (unkno wn) date) unknown) (unknown) (no (unknown) (unknown) [id number] (units (unkno wn) date) unknown) (unknown) (no (unknown) (unknown) 1 tab PO Q6H PRN (units (unknown) date) unknown) (unknown) (no (unknown) (unknown) 10 mg PO TID PRN (units (unknown) date) (Reason: Back Pain) unknown) Qty: 90 2RF (unknown) (no (unknown) (unknown) 100 mg PO BEDTIME (units (unknown) date) unknown) (unknown) (no (unknown) (unknown) 17:30 17:30 17:30 (units (unknown) date) unknown) (unknown) (no (unknown) (unknown) 17:30 17:55 18:00 (units (unknown) date) unknown) (unknown) (no (unknown) (unknown) 17:33 05/08/22 (units (unknown) date) unknown) (unknown) (no (unknown) (unknown) 17:49 05/08/22 (units (unknown) date) unknown) (unknown) (no (unknown) (unknown) 18:00 (units (unkno wn) date) unknown) (unknown) (no (unknown) (unknown) 20 mg PO DAILY (units (unknown) date) unknown) (unknown) (no (unknown) (unknown) 4 extremities (units ( unknown) date) moving, cranial unknown) nerves II through XII are intact, GCS is 1, (unknown) (no (unknown) (unknown) ABG/GI: Nontender, (units (unknown) date) soft, normal bowel unknown) sounds, no distention, no organomegaly, (unknown) (no (unknown) (unknown) ALT (<50) IU/L (units (unknown) date) unknown) (unknown) (no (unknown) (unknown) ALT 36 (<50) IU/L (units (unknown) date) unknown) (unknown) (no (unknown) (unknown) APTT (26-36) (units (u nknown) date) SECONDS unknown) (unknown) (no (unknown) (unknown) APTT 28 (26-36) (units (unknown) date) SECONDS unknown) (unknown) (no (unknown) (unknown) AST (17-59) IU/L (units (unknown) date) unknown) (unknown) (no (unknown) (unknown) AST 87 H (17-59) (units (unknown) date) IU/L unknown) (unknown) (no (unknown) (unknown) Age/Sex: 56 / M (units (unknown) date) unknown) (unknown) (no (unknown) (unknown) Albumin (3.5-5.0) (units (unknown) date) g/dL unknown) (unknown) (no (unknown) (unknown) Albumin 4.7 (units (un known) date) (3.5-5.0) g/dL unknown) (unknown) (no (unknown) (unknown) Albumin/Globulin (units (unknown) date) Ratio (1.0-2.8) unknown) (unknown) (no (unknown) (unknown) Albumin/Globulin (units (unknown) date) Ratio 1.3 (1.0-2.8) unknown) (unknown) (no (unknown) (unknown) Alcohol abuse with (units (unknown) date) withdrawal, unknown) Traumatic ecchymosis of right thoracic region (unknown) (no (unknown) (unknown) Alcohol type: beer (units (unknown) date) unknown) (unknown) (no (unknown) (unknown) Alcoholism (units (unk nown) date) unknown) (unknown) (no (unknown) (unknown) Alkaline (units (unkno wn) date) Phosphatase unknown) (38-126) U/L (unknown) (no (unknown) (unknown) Alkaline (units (unkno wn) date) Phosphatase 130 H unknown) (38-126) U/L (unknown) (no (unknown) (unknown) Allergies (units (unkn own) date) unknown) (unknown) (no (unknown) (unknown) Allergy/AdvReac (units (unknown) date) Type Severity unknown) Reaction Status Date / Time (unknown) (no (unknown) (unknown) Amorphous Sediment (units (unknown) date) 1 unknown) (unknown) (no (unknown) (unknown) Amorphous Sediment (units (unknown) date) unknown) (unknown) (no (unknown) (unknown) Attestation: I (units (unknown) date) personally reviewed unknown) and interpreted this ECG as follows: (unknown) (no (unknown) (unknown) BACK: No CVA (units (u nknown) date) tenderness, no unknown) vertebral tenderness, no step-off's, no crepitus (unknown) (no (unknown) (unknown) BUN (9-20) mg/dL (units (unknown) date) unknown) (unknown) (no (unknown) (unknown) BUN 12 (9-20) (units ( unknown) date) mg/dL unknown) (unknown) (no (unknown) (unknown) BUN/Creatinine (units (unknown) date) Ratio (6-22) unknown) (unknown) (no (unknown) (unknown) BUN/Creatinine (units (unknown) date) Ratio 10.8 (6-22) unknown) (unknown) (no (unknown) (unknown) Baso # (Auto) (units ( unknown) date) (0-100) /uL unknown) (unknown) (no (unknown) (unknown) Baso # (Auto) 0 (units (unknown) date) (0-100) /uL unknown) (unknown) (no (unknown) (unknown) Baso % (Auto) (units ( unknown) date) (0-2) % unknown) (unknown) (no (unknown) (unknown) Baso % (Auto) 0.1 (units (unknown) date) (0-2) % unknown) (unknown) (no (unknown) (unknown) Bedside Urine (units ( unknown) date) Bilirubin - unknown) Negative (unknown) (no (unknown) (unknown) Bedside Urine (units ( unknown) date) Glucose Negative unknown) (unknown) (no (unknown) (unknown) Bedside Urine (units ( unknown) date) Ketone +++ 80 unknown) (unknown) (no (unknown) (unknown) Bedside Urine (units ( unknown) date) Leukocytes - unknown) Negative (unknown) (no (unknown) (unknown) Bedside Urine (units ( unknown) date) Nitrite - Negative unknown) (unknown) (no (unknown) (unknown) Bedside Urine (units ( unknown) date) Occult Blood - unknown) Negative (unknown) (no (unknown) (unknown) Bedside Urine (units ( unknown) date) Protein + 30 unknown) (unknown) (no (unknown) (unknown) Bedside Urine (units ( unknown) date) Urobilinogen - unknown) Negative (unknown) (no (unknown) (unknown) Bedside Urine pH (units (unknown) date) 6.0 unknown) (unknown) (no (unknown) (unknown) Blood Culture Stat (units (unknown) date) unknown) (unknown) (no (unknown) (unknown) Blood Pressure (units (unknown) date) 132/85 05/08/22 unknown) 17:33 (unknown) (no (unknown) (unknown) Blood Pressure (units (unknown) date) 132/85 unknown) (unknown) (no (unknown) (unknown) CT cervical spine (units (unknown) date) wo con Stat unknown) (unknown) (no (unknown) (unknown) CT chest abd pel w (units (unknown) date) con Stat unknown) (unknown) (no (unknown) (unknown) CT head/brain wo (units (unknown) date) con Stat unknown) (unknown) (no (unknown) (unknown) CVS: Heart sounds (units (unknown) date) are normal, no unknown) murmur noted, No JVD. Patient is tachycardic. (unknown) (no (unknown) (unknown) Calcium (8.4-10.2) (units (unknown) date) mg/dL unknown) (unknown) (no (unknown) (unknown) Calcium 8.4 (units (un known) date) (8.4-10.2) mg/dL unknown) (unknown) (no (unknown) (unknown) Carbon Dioxide (units (unknown) date) (22-32) mmol/L unknown) (unknown) (no (unknown) (unknown) Carbon Dioxide 10 (units (unknown) date) L (22-32) mmol/L unknown) (unknown) (no (unknown) (unknown) Chief complaint: (units (unknown) date) GI Bleed unknown) (unknown) (no (unknown) (unknown) Chloride (98-107) (units (unknown) date) mmol/L unknown) (unknown) (no (unknown) (unknown) Chloride 101 (units (u nknown) date) (98-107) mmol/L unknown) (unknown) (no (unknown) (unknown) Chronic back pain (units (unknown) date) unknown) (unknown) (no (unknown) (unknown) Clinical (units (unkno wn) date) Impression: unknown) (unknown) (no (unknown) (unknown) Complete Blood (units (unknown) date) Count AUTO DIFF unknown) Stat (unknown) (no (unknown) (unknown) Comprehensive (units ( unknown) date) Metabolic Panel unknown) Stat (unknown) (no (unknown) (unknown) Lavelle Griffin, (units (unknown) date) [Primary Care unknown) Provider] (unknown) (no (unknown) (unknown) Course (units (unkno wn) date) unknown) (unknown) (no (unknown) (unknown) Creatinine (units (unk nown) date) (0.66-1.25) mg/dL unknown) (unknown) (no (unknown) (unknown) Creatinine 1.11 (units (unknown) date) (0.66-1.25) mg/dL unknown) (unknown) (no (unknown) (unknown) : 1965 (units (unknown) date) Acct:[id number] unknown) (unknown) (no (unknown) (unknown) Date of Service: (units (unknown) date) 05/08/22 unknown) (unknown) (no (unknown) (unknown) Degenerative disc (units (unknown) date) disease unknown) (unknown) (no (unknown) (unknown) Departure (units (unkn own) date) unknown) (unknown) (no (unknown) (unknown) Discharge Plan (units (unknown) date) unknown) (unknown) (no (unknown) (unknown) Discontinued (units (u nknown) date) Medications unknown) (unknown) (no (unknown) (unknown) Does have pain (units (unknown) date) with movement. He unknown) is had nausea and vomiting for the past 2 days (unknown) (no (unknown) (unknown) Dose Instruction: (units (unknown) date) unknown) (unknown) (no (unknown) (unknown) ECG Data (units (unkno wn) date) unknown) (unknown) (no (unknown) (unknown) ED Orders (units (unkn own) date) unknown) (unknown) (no (unknown) (unknown) EKG-12 Lead Stat (units (unknown) date) unknown) (unknown) (no (unknown) (unknown) ENT: External (units ( unknown) date) inspection normal, unknown) trachea is midline, TM's are normal no (unknown) (no (unknown) (unknown) ER Physician: (units ( unknown) date) Marylu Arce D.O. unknown) (unknown) (no (unknown) (unknown) ETOH [Ethanol (units ( unknown) date) (ETOH)] Stat unknown) (unknown) (no (unknown) (unknown) EXT: Atraumatic, (units (unknown) date) hips are nontender, unknown) no pedal edema, normal color and (unknown) (no (unknown) (unknown) EYES: PERRLA, EOMI (units (unknown) date) unknown) (unknown) (no (unknown) (unknown) Emergency Report (units (unknown) date) unknown) (unknown) (no (unknown) (unknown) Eos # (Auto) (units (u nknown) date) (0-450) /uL unknown) (unknown) (no (unknown) (unknown) Eos # (Auto) 0 (units (unknown) date) (0-450) /uL unknown) (unknown) (no (unknown) (unknown) Eos % (Auto) (2-4) (units (unknown) date) % unknown) (unknown) (no (unknown) (unknown) Eos % (Auto) 0.0 L (units (unknown) date) (2-4) % unknown) (unknown) (no (unknown) (unknown) Esterase (units (unkno wn) date) unknown) (unknown) (no (unknown) (unknown) Estimated GFR > 60 (units (unknown) date) (>60) mL/min unknown) (unknown) (no (unknown) (unknown) Estimated GFR (units ( unknown) date) (>60) mL/min unknown) (unknown) (no (unknown) (unknown) Ethyl Alcohol ( - (units (unknown) date) 10) mg/dL unknown) (unknown) (no (unknown) (unknown) Ethyl Alcohol 190 (units (unknown) date) H ( - 10) mg/dL unknown) (unknown) (no (unknown) (unknown) Exam Narrative: (units (unknown) date) unknown) (unknown) (no (unknown) (unknown) Exam (units (unkno wn) date) unknown) (unknown) (no (unknown) (unknown) Facet arthropathy, (units (unknown) date) lumbar unknown) (unknown) (no (unknown) (unknown) Family History (units (unknown) date) (Reviewed 05/08/22 unknown) @ 18:26 by Marylu Arce DO) (unknown) (no (unknown) (unknown) [place] (units (unkno wn) date) unknown) (unknown) (no (unknown) (unknown) GCS (units (unkno wn) date) unknown) (unknown) (no (unknown) (unknown) GEN: Patient (units (u nknown) date) appears in moderate unknown) distress. (unknown) (no (unknown) (unknown) Gait instability (units (unknown) date) unknown) (unknown) (no (unknown) (unknown) General (units (unkno wn) date) unknown) (unknown) (no (unknown) (unknown) Bakari coma scale (units (unknown) date) eye opening: unknown) Spontaneous (unknown) (no (unknown) (unknown) Mcintosh coma scale (units (unknown) date) motor response: unknown) Obey commands (unknown) (no (unknown) (unknown) Mcintosh coma scale (units (unknown) date) total score: 15 unknown) (unknown) (no (unknown) (unknown) Mcintosh coma scale (units (unknown) date) verbal response: unknown) Orientated (unknown) (no (unknown) (unknown) Globulin (1.7-4.1) (units (unknown) date) g/dL unknown) (unknown) (no (unknown) (unknown) Globulin 3.5 (units (u nknown) date) (1.7-4.1) g/dL unknown) (unknown) (no (unknown) (unknown) Glucose (70-100) (units (unknown) date) mg/dL unknown) (unknown) (no (unknown) (unknown) Glucose 115 H (units ( unknown) date) (70-100) mg/dL unknown) (unknown) (no (unknown) (unknown) HEAD: No evidence (units (unknown) date) of trauma, no unknown) raccoon/Jane sign. (unknown) (no (unknown) (unknown) HPI - GI Bleed (units (unknown) date) unknown) (unknown) (no (unknown) (unknown) HPI Narrative: (units (unknown) date) unknown) (unknown) (no (unknown) (unknown) Hct (41-53) % (units ( unknown) date) unknown) (unknown) (no (unknown) (unknown) Hct 42.0 (41-53) % (units (unknown) date) unknown) (unknown) (no (unknown) (unknown) Hepatic steatosis (units (unknown) date) unknown) (unknown) (no (unknown) (unknown) Herniated nucleus (units (unknown) date) pulposus, L4-5 unknown) (unknown) (no (unknown) (unknown) Hgb (13.5-17.5) (units (unknown) date) g/dL unknown) (unknown) (no (unknown) (unknown) Hgb 13.5 (units (unkno wn) date) (13.5-17.5) g/dL unknown) (unknown) (no (unknown) (unknown) History of Present (units (unknown) date) Illness unknown) (unknown) (no (unknown) (unknown) History of (units (unk nown) date) colostomy reversal unknown) (unknown) (no (unknown) (unknown) Home Medications (units (unknown) date) unknown) (unknown) (no (unknown) (unknown) Hyaline Casts (units ( unknown) date) (None) unknown) (unknown) (no (unknown) (unknown) Hyaline Casts (units ( unknown) date) 0-1/lpf (None) unknown) (unknown) (no (unknown) (unknown) INR (0.9-1.3) (units ( unknown) date) unknown) (unknown) (no (unknown) (unknown) INR 0.9 (0.9-1.3) (units (unknown) date) unknown) (unknown) (no (unknown) (unknown) Initial Vital (units ( unknown) date) Signs unknown) (unknown) (no (unknown) (unknown) Initial Vital (units ( unknown) date) Signs: unknown) (unknown) (no (unknown) (unknown) Interpretation: (units (unknown) date) unknown) (unknown) (no (unknown) (unknown) [facility] (units (unknown) date) [address] unknown) [place] [address] (unknown) (no (unknown) (unknown) Lab Data (units (unkno wn) date) unknown) (unknown) (no (unknown) (unknown) Lab Results (units (un known) date) unknown) (unknown) (no (unknown) (unknown) Labs: (units (unkno wn) date) unknown) (unknown) (no (unknown) (unknown) Lactate (0.7-2.1) (units (unknown) date) mmol/L unknown) (unknown) (no (unknown) (unknown) Lactate (Lactic (units (unknown) date) Acid) Stat unknown) (unknown) (no (unknown) (unknown) Lactate 7.0 H* (units (unknown) date) (0.7-2.1) mmol/L unknown) (unknown) (no (unknown) (unknown) Limitations: no (units (unknown) date) limitations unknown) (unknown) (no (unknown) (unknown) Lymph # (Auto) (units (unknown) date) (5746-8584) /uL unknown) (unknown) (no (unknown) (unknown) Lymph # (Auto) 700 (units (unknown) date) L (3294-1329) /uL unknown) (unknown) (no (unknown) (unknown) Lymph % (Auto) (units (unknown) date) (25-40) % unknown) (unknown) (no (unknown) (unknown) Lymph % (Auto) 3.0 (units (unknown) date) L (25-40) % unknown) (unknown) (no (unknown) (unknown) MCH (26-34) PG (units (unknown) date) unknown) (unknown) (no (unknown) (unknown) MCH 31.7 (26-34) (units (unknown) date) PG unknown) (unknown) (no (unknown) (unknown) MCHC (30-36) % (units (unknown) date) unknown) (unknown) (no (unknown) (unknown) MCHC 32.3 (30-36) (units (unknown) date) % unknown) (unknown) (no (unknown) (unknown) MCV (80-100) fL (units (unknown) date) unknown) (unknown) (no (unknown) (unknown) MCV 98.2 (80-100) (units (unknown) date) fL unknown) (unknown) (no (unknown) (unknown) MDM - GI Bleed (units (unknown) date) unknown) (unknown) (no (unknown) (unknown) MDM Narrative (units ( unknown) date) unknown) (unknown) (no (unknown) (unknown) Medical History (units (unknown) date) unknown) (unknown) (no (unknown) (unknown) Medical decision (units (unknown) date) making narrative: unknown) (unknown) (no (unknown) (unknown) Medication (units (unk nown) date) Instructions unknown) Recorded Confirmed (unknown) (no (unknown) (unknown) Medication (units (unk nown) date) Instructions unknown) Recorded (unknown) (no (unknown) (unknown) Melanotic stools (units (unknown) date) unknown) (unknown) (no (unknown) (unknown) Mode of arrival: (units (unknown) date) EMS unknown) (unknown) (no (unknown) (unknown) [place] # (Auto) (units ( unknown) date) (0-900) /uL unknown) (unknown) (no (unknown) (unknown) [place] # (Auto) 400 (units (unknown) date) (0-900) /uL unknown) (unknown) (no (unknown) (unknown) [place] % (Auto) (units ( unknown) date) (3-14) % unknown) (unknown) (no (unknown) (unknown) [place] % (Auto) 1.6 (units (unknown) date) L (3-14) % unknown) (unknown) (no (unknown) (unknown) NECK: Nontender, (units (unknown) date) painless range of unknown) motion, trachea midline (unknown) (no (unknown) (unknown) NEURO: Oriented (units (unknown) date) AOx3, neuro is unknown) grossly intact, sensation and motor is normal all (unknown) (no (unknown) (unknown) Narrative (units (unkn own) date) unknown) (unknown) (no (unknown) (unknown) Neut # (Auto) (units ( unknown) date) (7508-2438) /uL unknown) (unknown) (no (unknown) (unknown) Neut # (Auto) (units ( unknown) date) 05553 H (7969-4449) unknown) /uL (unknown) (no (unknown) (unknown) Neut % (Auto) (units ( unknown) date) (50-75) % unknown) (unknown) (no (unknown) (unknown) Neut % (Auto) 95.3 (units (unknown) date) H (50-75) % unknown) (unknown) (no (unknown) (unknown) No Action (units (unkn own) date) unknown) (unknown) (no (unknown) (unknown) Ondansetron HCl (units (unknown) date) (Ondansetron 4 Mg/2 unknown) Ml Inj) 4 mg IV NOW PRN (unknown) (no (unknown) (unknown) Ordered: (units (unkno wn) date) unknown) (unknown) (no (unknown) (unknown) Orders (units (unkno wn) date) unknown) (unknown) (no (unknown) (unknown) Other No pertinent (units (unknown) date) family history in unknown) first degree relatives (unknown) (no (unknown) (unknown) Oxygen Delivery (units (unknown) date) Method 05/08/22 unknown) 17:33 (unknown) (no (unknown) (unknown) Oxygen Delivery (units (unknown) date) Method Room Air unknown) Room Air (unknown) (no (unknown) (unknown) PRN Reason: Nausea (units (unknown) date) And Vomiting unknown) (unknown) (no (unknown) (unknown) PSYCH: Normal mood (units (unknown) date) and affect unknown) (unknown) (no (unknown) (unknown) PT (10.1-12.7) (units (unknown) date) SECONDS unknown) (unknown) (no (unknown) (unknown) PT 10.4 (units (unkno wn) date) (10.1-12.7) SECONDS unknown) (unknown) (no (unknown) (unknown) Pantoprazole (units (u nknown) date) Sodium unknown) (Pantoprazole 40 Mg Vial) 80 mg IV NOW ONE (unknown) (no (unknown) (unknown) Partial (units (unkno wn) date) Thromboplastin Time unknown) Stat (unknown) (no (unknown) (unknown) Patient History (units (unknown) date) unknown) (unknown) (no (unknown) (unknown) Patient: (units (unkno wn) date) Sky Gaffney unknown) MR#: [id number] (unknown) (no (unknown) (unknown) Penicillins (units (un known) date) Allergy Severe unknown) Anaphylaxis Verified 01/02/22 08:42 (unknown) (no (unknown) (unknown) Plt Count (units (unkn own) date) (150-400) X103/uL unknown) (unknown) (no (unknown) (unknown) Plt Count 306 (units ( unknown) date) (150-400) X103/uL unknown) (unknown) (no (unknown) (unknown) Positive for Nexus (units (unknown) date) criteria, there is unknown) no midline line tenderness, distracting (unknown) (no (unknown) (unknown) Potassium (units (unkn own) date) (3.4-5.1) mmol/L unknown) (unknown) (no (unknown) (unknown) Potassium 5.0 (units ( unknown) date) (3.4-5.1) mmol/L unknown) (unknown) (no (unknown) (unknown) Prescriptions: (units (unknown) date) unknown) (unknown) (no (unknown) (unknown) Previous Rx's (units ( unknown) date) unknown) (unknown) (no (unknown) (unknown) Procalcitonin Stat (units (unknown) date) unknown) (unknown) (no (unknown) (unknown) Prothrombin Time (units (unknown) date) INR Stat unknown) (unknown) (no (unknown) (unknown) Protonix for free (units (unknown) date) GI bleed and unknown) reassessment as well as repeat lactate (unknown) (no (unknown) (unknown) Pulse Oximetry 99 (units (unknown) date) 05/08/22 17:33 unknown) (unknown) (no (unknown) (unknown) Pulse Oximetry 99 (units (unknown) date) 98 unknown) (unknown) (no (unknown) (unknown) Pulse Rate 127 H (units (unknown) date) 05/08/22 17:33 unknown) (unknown) (no (unknown) (unknown) Pulse Rate 127 H (units (unknown) date) 131 H 130 H unknown) (unknown) (no (unknown) (unknown) RBC (4.5-5.9) (units ( unknown) date) X106/uL unknown) (unknown) (no (unknown) (unknown) RBC 4.27 L (units (unk nown) date) (4.5-5.9) X106/uL unknown) (unknown) (no (unknown) (unknown) RDW (11.6-14.8) % (units (unknown) date) unknown) (unknown) (no (unknown) (unknown) RDW 14.2 (units (unkno wn) date) (11.6-14.8) % unknown) (unknown) (no (unknown) (unknown) RESP: Chest is (units (unknown) date) tender on the unknown) right, patient has about a palm size area of (unknown) (no (unknown) (unknown) ROS Unobtainable: (units (unknown) date) All systems unknown) reviewed + are unremarkable except as noted in HPI (unknown) (no (unknown) (unknown) RUQ pain (units (unkno wn) date) unknown) (unknown) (no (unknown) (unknown) Rectal pain (units (un known) date) unknown) (unknown) (no (unknown) (unknown) Referrals: (units (unk nown) date) unknown) (unknown) (no (unknown) (unknown) Related Data (units (u nknown) date) unknown) (unknown) (no (unknown) (unknown) Respiratory Rate (units (unknown) date) 20 05/08/22 17:33 unknown) (unknown) (no (unknown) (unknown) Respiratory Rate (units (unknown) date) 20 14 13 unknown) (unknown) (no (unknown) (unknown) Result diagrams: (units (unknown) date) unknown) (unknown) (no (unknown) (unknown) Review of Systems (units (unknown) date) unknown) (unknown) (no (unknown) (unknown) Rx Instructions: (units (unknown) date) unknown) (unknown) (no (unknown) (unknown) SKIN: Intact, warm (units (unknown) date) and dry, no unknown) crepitus and without decubitus (unknown) (no (unknown) (unknown) Scores (units (unkno wn) date) unknown) (unknown) (no (unknown) (unknown) See Rx (units (unkno wn) date) Instructions .ROUTE unknown) .COMPLEX Qty: 90 1RF (unknown) (no (unknown) (unknown) Signed By: (units (unk nown) date) unknown) (unknown) (no (unknown) (unknown) Sinus tachycardia (units (unknown) date) rate of 130 MT 140 unknown) QRS 80 QTC [address]. No acute ST elevation (unknown) (no (unknown) (unknown) Smoker (units (unkno wn) date) unknown) (unknown) (no (unknown) (unknown) Smoking Status: (units (unknown) date) Current every day unknown) smoker (unknown) (no (unknown) (unknown) Social History (units (unknown) date) (Reviewed 05/08/22 unknown) @ 18:26 by Marylu Arce DO) (unknown) (no (unknown) (unknown) Sodium (137-145) (units (unknown) date) mmol/L unknown) (unknown) (no (unknown) (unknown) Sodium 143 (units (unk nown) date) (137-145) mmol/L unknown) (unknown) (no (unknown) (unknown) Source: patient (units (unknown) date) unknown) (unknown) (no (unknown) (unknown) Stated complaint: (units (unknown) date) GI Bleed back pain unknown) (unknown) (no (unknown) (unknown) Status post (units (un known) date) cholecystectomy unknown) (unknown) (no (unknown) (unknown) Status post (units (un known) date) exploratory unknown) laparotomy (unknown) (no (unknown) (unknown) Status post (units (un known) date) rotator cuff repair unknown) (unknown) (no (unknown) (unknown) Stop: 05/08/22 (units (unknown) date) 17:49 unknown) (unknown) (no (unknown) (unknown) Substance Use (units ( unknown) date) Type: does not use unknown) (unknown) (no (unknown) (unknown) Surgical History (units (unknown) date) (Reviewed 05/08/22 unknown) @ 18:26 by Marylu Arce DO) (unknown) (no (unknown) (unknown) TAKE 1 CAPSULE BY (units (unknown) date) MOUTH DAILY unknown) (unknown) (no (unknown) (unknown) Temperature 98.4 F (units (unknown) date) 05/08/22 17:33 unknown) (unknown) (no (unknown) (unknown) Temperature 98.4 F (units (unknown) date) unknown) (unknown) (no (unknown) (unknown) This is a (units (unkn own) date) 56-year-old male unknown) who presents with complaint of fall 3 days ago, (unknown) (no (unknown) (unknown) This is a (units (unkn own) date) 56-year-old man unknown) with history of alcohol abuse, patient states he only (unknown) (no (unknown) (unknown) Time Seen by (units (u nknown) date) Provider: 05/08/22 unknown) 18:25 (unknown) (no (unknown) (unknown) Total Bilirubin (units (unknown) date) (0.2-1.3) mg/dL unknown) (unknown) (no (unknown) (unknown) Total Bilirubin (units (unknown) date) 0.8 (0.2-1.3) mg/dL unknown) (unknown) (no (unknown) (unknown) Total Protein (units ( unknown) date) (6.3-8.2) g/dL unknown) (unknown) (no (unknown) (unknown) Total Protein 8.2 (units (unknown) date) (6.3-8.2) g/dL unknown) (unknown) (no (unknown) (unknown) Type and Screen (units (unknown) date) Stat unknown) (unknown) (no (unknown) (unknown) U Benzodiazepines (units (unknown) date) Scrn (Negative) unknown) (unknown) (no (unknown) (unknown) U Benzodiazepines (units (unknown) date) Scrn Positive H unknown) (Negative) (unknown) (no (unknown) (unknown) U Marijuana (THC) (units (unknown) date) Screen (Negative) unknown) (unknown) (no (unknown) (unknown) U Marijuana (THC) (units (unknown) date) Screen Negative unknown) (Negative) (unknown) (no (unknown) (unknown) U Methamphetamines (units (unknown) date) Scrn (Negative) unknown) (unknown) (no (unknown) (unknown) U Methamphetamines (units (unknown) date) Scrn Negative unknown) (Negative) (unknown) (no (unknown) (unknown) U Opiates 300ng/mL (units (unknown) date) cut (Negative) unknown) (unknown) (no (unknown) (unknown) U Opiates 300ng/mL (units (unknown) date) cut Negative unknown) (Negative) (unknown) (no (unknown) (unknown) U Tricyclic (units (un known) date) Antidepress unknown) (Negative) (unknown) (no (unknown) (unknown) U Tricyclic (units (un known) date) Antidepress unknown) Negative (Negative) (unknown) (no (unknown) (unknown) Ur Amphetamines (units (unknown) date) Screen (Negative) unknown) (unknown) (no (unknown) (unknown) Ur Amphetamines (units (unknown) date) Screen Negative unknown) (Negative) (unknown) (no (unknown) (unknown) Ur Barbiturates (units (unknown) date) Screen (Negative) unknown) (unknown) (no (unknown) (unknown) Ur Barbiturates (units (unknown) date) Screen Negative unknown) (Negative) (unknown) (no (unknown) (unknown) Ur Culture (units (unk nown) date) Indicated? Cult not unknown) indicated (unknown) (no (unknown) (unknown) Ur Culture (units (unk nown) date) Indicated? unknown) (unknown) (no (unknown) (unknown) Ur MDMA Scrn (units (u nknown) date) (Ecstasy) unknown) (Negative) (unknown) (no (unknown) (unknown) Ur MDMA Scrn (units (u nknown) date) (Ecstasy) Negative unknown) (Negative) (unknown) (no (unknown) (unknown) Ur Oxycodone (units (u nknown) date) Screen (Negative) unknown) (unknown) (no (unknown) (unknown) Ur Oxycodone (units (u nknown) date) Screen Positive H unknown) (Negative) (unknown) (no (unknown) (unknown) Ur Phencyclidine (units (unknown) date) Scrn (Negative) unknown) (unknown) (no (unknown) (unknown) Ur Phencyclidine (units (unknown) date) Scrn Negative unknown) (Negative) (unknown) (no (unknown) (unknown) Ur Transition (units ( unknown) date) Epith Cell unknown) (0-5/HPF) (unknown) (no (unknown) (unknown) Ur Transition (units ( unknown) date) Epith Cell 0-1/hpf unknown) (0-5/HPF) (unknown) (no (unknown) (unknown) Urine Bacteria (units (unknown) date) (None) unknown) (unknown) (no (unknown) (unknown) Urine Bacteria (units (unknown) date) None seen (None) unknown) (unknown) (no (unknown) (unknown) Urine Cocaine (units ( unknown) date) Screen (Negative) unknown) (unknown) (no (unknown) (unknown) Urine Cocaine (units ( unknown) date) Screen Negative unknown) (Negative) (unknown) (no (unknown) (unknown) Urine Dip (units (unkn own) date) unknown) (unknown) (no (unknown) (unknown) Urine Drug Screen, (units (unknown) date) Rapid Stat unknown) (unknown) (no (unknown) (unknown) Urine Methadone (units (unknown) date) Screen (Negative) unknown) (unknown) (no (unknown) (unknown) Urine Methadone (units (unknown) date) Screen Negative unknown) (Negative) (unknown) (no (unknown) (unknown) Urine Microscopic (units (unknown) date) Stat unknown) (unknown) (no (unknown) (unknown) Urine RBC (units (unkn own) date) (0-5/HPF) unknown) (unknown) (no (unknown) (unknown) Urine RBC 0-1/hpf (units (unknown) date) (0-5/HPF) unknown) (unknown) (no (unknown) (unknown) Urine Specific (units (unknown) date) [place] 1.030 unknown) (unknown) (no (unknown) (unknown) Urine WBC (units (unkn own) date) (0-5/HPF) unknown) (unknown) (no (unknown) (unknown) Urine WBC None (units (unknown) date) seen (0-5/HPF) unknown) (unknown) (no (unknown) (unknown) Vital Signs - 8 hr (units (unknown) date) unknown) (unknown) (no (unknown) (unknown) Vital Signs (units (un known) date) unknown) (unknown) (no (unknown) (unknown) Vital signs: (units (u nknown) date) unknown) (unknown) (no (unknown) (unknown) WBC (4.5-11.0) (units (unknown) date) X103/uL unknown) (unknown) (no (unknown) (unknown) WBC 22.1 H (units (unk nown) date) (4.5-11.0) X103/uL unknown) (unknown) (no (unknown) (unknown) [Embedded Image (units (unknown) date) Not Available] unknown) (unknown) (no (unknown) (unknown) abdomen pelvis (units (unknown) date) trauma protocol, unknown) fluids, phenobarb for alcohol withdrawal, (unknown) (no (unknown) (unknown) about 3 days ago (units (unknown) date) he is unsure if he unknown) hit his head but states he hit his right (unknown) (no (unknown) (unknown) airway is normal (units (unknown) date) and with normal unknown) occlusion, No bony tenderness (unknown) (no (unknown) (unknown) alcohol intake (units (unknown) date) frequency: 3 or unknown) more drinks per day (unknown) (no (unknown) (unknown) alcohol intake: (units (unknown) date) current unknown) (unknown) (no (unknown) (unknown) alcohol (units (unkno wn) date) withdrawals. unknown) Patient may have sepsis versus reactive changed alcohol (unknown) (no (unknown) (unknown) allergic to (units (un known) date) penicillin. He unknown) states quit smoking 4 days ago, he states he (unknown) (no (unknown) (unknown) and below (units (unkn own) date) unknown) (unknown) (no (unknown) (unknown) benzodiazepines (units (unknown) date) and oxycodone. unknown) Patient need CT of the head C-spine chest (unknown) (no (unknown) (unknown) celecoxib 200 mg (units (unknown) date) capsule See Rx unknown) Instructions .Route 03/23/21 (unknown) (no (unknown) (unknown) celecoxib 200 mg (units (unknown) date) capsule unknown) (unknown) (no (unknown) (unknown) chest and back. He (units (unknown) date) states he developed unknown) right chest pain, he states he is had a (unknown) (no (unknown) (unknown) cholecystectomy, (units (unknown) date) injury to repair unknown) with complications requiring colostomy and (unknown) (no (unknown) (unknown) cyclobenzaprine 10 (units (unknown) date) mg tablet 10 mg PO unknown) TID PRN Back Pain #90 tabs 11/22/18 (unknown) (no (unknown) (unknown) cyclobenzaprine 10 (units (unknown) date) mg tablet unknown) (unknown) (no (unknown) (unknown) denies other (units (u nknown) date) surgeries described unknown) above. He denies any daily medications. He is (unknown) (no (unknown) (unknown) depression noted. (units (unknown) date) unknown) (unknown) (no (unknown) (unknown) does not show (units ( unknown) date) signs fraction, unknown) alcohol is 190. Patient is positive for (unknown) (no (unknown) (unknown) ecchymosis on the (units (unknown) date) right lateral unknown) chest. No hematoma sort of patchy. And has (unknown) (no (unknown) (unknown) feel like. He (units ( unknown) date) denies loss of unknown) consciousness. He denies shortness of breath. (unknown) (no (unknown) (unknown) feels very shaky (units (unknown) date) like he is going unknown) through DTs. He is had a cough which he (unknown) (no (unknown) (unknown) he noticed he is (units (unknown) date) had some brown unknown) discoloration when he vomits. He denies black (unknown) (no (unknown) (unknown) headache since (units (unknown) date) then. He states if unknown) he had migraines he feels like this would (unknown) (no (unknown) (unknown) hemotypanum, Nares (units (unknown) date) are clear, no unknown) septal hematoma, no dental or oral injury, (unknown) (no (unknown) (unknown) household members: (units (unknown) date) spouse unknown) (unknown) (no (unknown) (unknown) hydrocodone 5 (units ( unknown) date) mg-acetaminophen unknown) 325 1 tab PO Q6H PRN 03/23/21 01/02/22 (unknown) (no (unknown) (unknown) hydrocodone-acetam (units (unknown) date) inophen 5-325 mg unknown) tablet (unknown) (no (unknown) (unknown) injury, altered (units (unknown) date) mental status, unknown) neuro deficit, positive for recent EtOH. (unknown) (no (unknown) (unknown) marital status: (units (unknown) date) unknown) (unknown) (no (unknown) (unknown) mg tablet (units (unkn own) date) unknown) (unknown) (no (unknown) (unknown) morning. He denies (units (unknown) date) any illicit or IV unknown) drugs. Patient states with alcohol (unknown) (no (unknown) (unknown) of 10 consistent (units (unknown) date) with his elevated unknown) lactate. AST ALT bilirubin normal. Urine (unknown) (no (unknown) (unknown) omeprazole 20 mg (units (unknown) date) capsule,delayed 20 unknown) mg PO DAILY 09/22/20 01/02/22 (unknown) (no (unknown) (unknown) omeprazole 20 mg (units (unknown) date) capsule,delayed unknown) release(DR/EC) (unknown) (no (unknown) (unknown) or bloody stools. (units (unknown) date) He is had diarrhea, unknown) he denies fevers or chills. He states he (unknown) (no (unknown) (unknown) or rales (units (unkno wn) date) unknown) (unknown) (no (unknown) (unknown) other medication (units (unknown) date) is Seroquel for unknown) sleep. 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 (unknown) (unknown) patient does have (units (unknown) date) generalized tremor unknown) (unknown) (no (unknown) (unknown) pelvic rock is (units (unknown) date) negative unknown) (unknown) (no (unknown) (unknown) persistent (units (unk nown) date) headache, bruising unknown) on his right chest and chest pain, nausea and (unknown) (no (unknown) (unknown) pulses in all four (units (unknown) date) extremities unknown) (unknown) (no (unknown) (unknown) quetiapine 100 mg (units (unknown) date) tablet 100 mg PO unknown) BEDTIME 01/02/22 01/02/22 (unknown) (no (unknown) (unknown) quetiapine 100 mg (units (unknown) date) tablet unknown) (unknown) (no (unknown) (unknown) release (units (unkno wn) date) unknown) (unknown) (no (unknown) (unknown) states has been (units (unknown) date) nonproductive no unknown) bright red blood or sputum production. Patient (unknown) (no (unknown) (unknown) still pending. (units (unknown) date) Renal function unknown) electrolytes are relatively normal except for CO2 (unknown) (no (unknown) (unknown) substance use (units ( unknown) date) type: does not use unknown) (unknown) (no (unknown) (unknown) symmetric movement, (units (unknown) date) no ecchymosis, unknown) breath sounds are normal no crackles, wheezes (unknown) (no (unknown) (unknown) temperature, (units (u nknown) date) normal range of unknown) motion of extremities with normal tendon exam, 2 (unknown) (no (unknown) (unknown) then reanastomosis (units (unknown) date) after 8 months. unknown) Patient presents today after having a fall (unknown) (no (unknown) (unknown) typically drinks (units (unknown) date) 2-3 beers that are unknown) 24 oz daily, his last drink was earlier this (unknown) (no (unknown) (unknown) vomiting for the (units (unknown) date) past 2 days unknown) possible brown emesis or coffee-ground. And (unknown) (no (unknown) (unknown) white count at 22, (units (unknown) date) platelets of 306, unknown) patient has a lactate of 7, procalcitonin (unknown) (no (unknown) (unknown) withdrawal he has (units (unknown) date) not had seizures or unknown) hallucinations in the past. (unknown) (no (unknown) (unknown) withdrawal he is (units (unknown) date) tachycardic, has unknown) tremors, he is afebrile but has not elevated Result panel 253 (unknown) (no date) (unknown) (unknown) 0.31 ng/ml (unkn own) (unknown) (no date) (unknown) (unknown) 0.31 ng/ml (unkn own) Result panel 254 (unknown) (no date) (unknown) (unknown) NEGATIVE (units (unkn own) unknown) (unknown) (no date) (unknown) (unknown) O Negative (units (un known) unknown) (unknown) (no date) (unknown) (unknown) O Negative (units (un known) unknown) Result panel 255 (unknown) (no (unknown) (unknown) (no value) (units (unk nown) date) unknown) (unknown) (no (unknown) (unknown) .COMPLEX #90 caps (units (unknown) date) unknown) (unknown) (no (unknown) (unknown) 05/08/22 05/08/22 (units (unknown) date) 05/08/22 unknown) Range/Units (unknown) (no (unknown) (unknown) 05/08/22 17:30 (units (unknown) date) unknown) (unknown) (no (unknown) (unknown) 05/08/22 17:55 (units (unknown) date) unknown) (unknown) (no (unknown) (unknown) 05/08/22 18:00 (units (unknown) date) unknown) (unknown) (no (unknown) (unknown) 05/08/22 19:02 (units (unknown) date) unknown) (unknown) (no (unknown) (unknown) 05/08/22 20:15 (units (unknown) date) unknown) (unknown) (no (unknown) (unknown) 05/08/22 (units (unkno wn) date) unknown) (unknown) (no (unknown) (unknown) [id number] (units (unkno wn) date) unknown) (unknown) (no (unknown) (unknown) 1 tab PO Q6H PRN (units (unknown) date) unknown) (unknown) (no (unknown) (unknown) 10 mg PO TID PRN (units (unknown) date) (Reason: Back Pain) unknown) Qty: 90 2RF (unknown) (no (unknown) (unknown) 100 mg PO BEDTIME (units (unknown) date) unknown) (unknown) (no (unknown) (unknown) 17:30 17:30 17:30 (units (unknown) date) unknown) (unknown) (no (unknown) (unknown) 17:33 05/08/22 (units (unknown) date) unknown) (unknown) (no (unknown) (unknown) 17:49 05/08/22 (units (unknown) date) unknown) (unknown) (no (unknown) (unknown) 17:55 18:00 18:00 (units (unknown) date) unknown) (unknown) (no (unknown) (unknown) 18:00 (units (unkno wn) date) unknown) (unknown) (no (unknown) (unknown) 20 mg PO DAILY (units (unknown) date) unknown) (unknown) (no (unknown) (unknown) 4 extremities (units ( unknown) date) moving, cranial unknown) nerves II through XII are intact, GCS is 1, (unknown) (no (unknown) (unknown) ABG/GI: Nontender, (units (unknown) date) soft, normal bowel unknown) sounds, no distention, no organomegaly, (unknown) (no (unknown) (unknown) ALT (<50) IU/L (units (unknown) date) unknown) (unknown) (no (unknown) (unknown) ALT 36 (<50) IU/L (units (unknown) date) unknown) (unknown) (no (unknown) (unknown) APTT (26-36) (units (u nknown) date) SECONDS unknown) (unknown) (no (unknown) (unknown) APTT 28 (26-36) (units (unknown) date) SECONDS unknown) (unknown) (no (unknown) (unknown) AST (17-59) IU/L (units (unknown) date) unknown) (unknown) (no (unknown) (unknown) AST 87 H (17-59) (units (unknown) date) IU/L unknown) (unknown) (no (unknown) (unknown) Age/Sex: 56 / M (units (unknown) date) unknown) (unknown) (no (unknown) (unknown) Albumin (3.5-5.0) (units (unknown) date) g/dL unknown) (unknown) (no (unknown) (unknown) Albumin 4.7 (units (un known) date) (3.5-5.0) g/dL unknown) (unknown) (no (unknown) (unknown) Albumin/Globulin (units (unknown) date) Ratio (1.0-2.8) unknown) (unknown) (no (unknown) (unknown) Albumin/Globulin (units (unknown) date) Ratio 1.3 (1.0-2.8) unknown) (unknown) (no (unknown) (unknown) Alcohol abuse with (units (unknown) date) withdrawal, unknown) Traumatic ecchymosis of right thoracic region (unknown) (no (unknown) (unknown) Alcohol type: beer (units (unknown) date) unknown) (unknown) (no (unknown) (unknown) Alcoholism (units (unk nown) date) unknown) (unknown) (no (unknown) (unknown) Alkaline (units (unkno wn) date) Phosphatase unknown) (38-126) U/L (unknown) (no (unknown) (unknown) Alkaline (units (unkno wn) date) Phosphatase 130 H unknown) (38-126) U/L (unknown) (no (unknown) (unknown) Allergies (units (unkn own) date) unknown) (unknown) (no (unknown) (unknown) Allergy/AdvReac (units (unknown) date) Type Severity unknown) Reaction Status Date / Time (unknown) (no (unknown) (unknown) Amorphous Sediment (units (unknown) date) 1 unknown) (unknown) (no (unknown) (unknown) Amorphous Sediment (units (unknown) date) unknown) (unknown) (no (unknown) (unknown) Antibody Screen (units (unknown) date) Negative unknown) (unknown) (no (unknown) (unknown) Antibody Screen (units (unknown) date) unknown) (unknown) (no (unknown) (unknown) Attestation: I (units (unknown) date) personally reviewed unknown) and interpreted this ECG as follows: (unknown) (no (unknown) (unknown) BACK: No CVA (units (u nknown) date) tenderness, no unknown) vertebral tenderness, no step-off's, no crepitus (unknown) (no (unknown) (unknown) BUN (9-20) mg/dL (units (unknown) date) unknown) (unknown) (no (unknown) (unknown) BUN 12 (9-20) (units ( unknown) date) mg/dL unknown) (unknown) (no (unknown) (unknown) BUN/Creatinine (units (unknown) date) Ratio (6-22) unknown) (unknown) (no (unknown) (unknown) BUN/Creatinine (units (unknown) date) Ratio 10.8 (6-22) unknown) (unknown) (no (unknown) (unknown) Baso # (Auto) (units ( unknown) date) (0-100) /uL unknown) (unknown) (no (unknown) (unknown) Baso # (Auto) 0 (units (unknown) date) (0-100) /uL unknown) (unknown) (no (unknown) (unknown) Baso % (Auto) (units ( unknown) date) (0-2) % unknown) (unknown) (no (unknown) (unknown) Baso % (Auto) 0.1 (units (unknown) date) (0-2) % unknown) (unknown) (no (unknown) (unknown) Bedside Urine (units ( unknown) date) Bilirubin - unknown) Negative (unknown) (no (unknown) (unknown) Bedside Urine (units ( unknown) date) Glucose Negative unknown) (unknown) (no (unknown) (unknown) Bedside Urine (units ( unknown) date) Ketone +++ 80 unknown) (unknown) (no (unknown) (unknown) Bedside Urine (units ( unknown) date) Leukocytes - unknown) Negative (unknown) (no (unknown) (unknown) Bedside Urine (units ( unknown) date) Nitrite - Negative unknown) (unknown) (no (unknown) (unknown) Bedside Urine (units ( unknown) date) Occult Blood - unknown) Negative (unknown) (no (unknown) (unknown) Bedside Urine (units ( unknown) date) Protein + 30 unknown) (unknown) (no (unknown) (unknown) Bedside Urine (units ( unknown) date) Urobilinogen - unknown) Negative (unknown) (no (unknown) (unknown) Bedside Urine pH (units (unknown) date) 6.0 unknown) (unknown) (no (unknown) (unknown) Blood Culture Stat (units (unknown) date) unknown) (unknown) (no (unknown) (unknown) Blood Pressure (units (unknown) date) 132/85 05/08/22 unknown) 17:33 (unknown) (no (unknown) (unknown) Blood Pressure (units (unknown) date) 132/85 unknown) (unknown) (no (unknown) (unknown) Blood Type O (units (u nknown) date) Negative unknown) (unknown) (no (unknown) (unknown) Blood Type (units (unk nown) date) unknown) (unknown) (no (unknown) (unknown) CT cervical spine (units (unknown) date) wo con Stat unknown) (unknown) (no (unknown) (unknown) CT chest abd pel w (units (unknown) date) con Stat unknown) (unknown) (no (unknown) (unknown) CT head/brain wo (units (unknown) date) con Stat unknown) (unknown) (no (unknown) (unknown) CVS: Heart sounds (units (unknown) date) are normal, no unknown) murmur noted, No JVD. Patient is tachycardic. (unknown) (no (unknown) (unknown) Calcium (8.4-10.2) (units (unknown) date) mg/dL unknown) (unknown) (no (unknown) (unknown) Calcium 8.4 (units (un known) date) (8.4-10.2) mg/dL unknown) (unknown) (no (unknown) (unknown) Carbon Dioxide (units (unknown) date) (22-32) mmol/L unknown) (unknown) (no (unknown) (unknown) Carbon Dioxide 10 (units (unknown) date) L (22-32) mmol/L unknown) (unknown) (no (unknown) (unknown) Chief complaint: (units (unknown) date) GI Bleed unknown) (unknown) (no (unknown) (unknown) Chloride (98-107) (units (unknown) date) mmol/L unknown) (unknown) (no (unknown) (unknown) Chloride 101 (units (u nknown) date) (98-107) mmol/L unknown) (unknown) (no (unknown) (unknown) Chronic back pain (units (unknown) date) unknown) (unknown) (no (unknown) (unknown) Clinical (units (unkno wn) date) Impression: unknown) (unknown) (no (unknown) (unknown) Complete Blood (units (unknown) date) Count AUTO DIFF unknown) Stat (unknown) (no (unknown) (unknown) Comprehensive (units ( unknown) date) Metabolic Panel unknown) Stat (unknown) (no (unknown) (unknown) Lavelle Griffin, (units (unknown) date) [Primary Care unknown) Provider] (unknown) (no (unknown) (unknown) Course (units (unkno wn) date) unknown) (unknown) (no (unknown) (unknown) Creatinine (units (unk nown) date) (0.66-1.25) mg/dL unknown) (unknown) (no (unknown) (unknown) Creatinine 1.11 (units (unknown) date) (0.66-1.25) mg/dL unknown) (unknown) (no (unknown) (unknown) : 1965 (units (unknown) date) Acct:[id number] unknown) (unknown) (no (unknown) (unknown) Date of Service: (units (unknown) date) 05/08/22 unknown) (unknown) (no (unknown) (unknown) Degenerative disc (units (unknown) date) disease unknown) (unknown) (no (unknown) (unknown) Departure (units (unkn own) date) unknown) (unknown) (no (unknown) (unknown) Discharge Plan (units (unknown) date) unknown) (unknown) (no (unknown) (unknown) Discontinued (units (u nknown) date) Medications unknown) (unknown) (no (unknown) (unknown) Documented By: AT (units (unknown) date) unknown) (unknown) (no (unknown) (unknown) Does have pain (units (unknown) date) with movement. He unknown) is had nausea and vomiting for the past 2 days (unknown) (no (unknown) (unknown) Dose Instruction: (units (unknown) date) unknown) (unknown) (no (unknown) (unknown) ECG Data (units (unkno wn) date) unknown) (unknown) (no (unknown) (unknown) ED Orders (units (unkn own) date) unknown) (unknown) (no (unknown) (unknown) EKG-12 Lead Stat (units (unknown) date) unknown) (unknown) (no (unknown) (unknown) ENT: External (units ( unknown) date) inspection normal, unknown) trachea is midline, TM's are normal no (unknown) (no (unknown) (unknown) ER Physician: (units ( unknown) date) Marylu Arce D.O. unknown) (unknown) (no (unknown) (unknown) ETOH [Ethanol (units ( unknown) date) (ETOH)] Stat unknown) (unknown) (no (unknown) (unknown) EXT: Atraumatic, (units (unknown) date) hips are nontender, unknown) no pedal edema, normal color and (unknown) (no (unknown) (unknown) EYES: PERRLA, EOMI (units (unknown) date) unknown) (unknown) (no (unknown) (unknown) Emergency Report (units (unknown) date) unknown) (unknown) (no (unknown) (unknown) Eos # (Auto) (units (u nknown) date) (0-450) /uL unknown) (unknown) (no (unknown) (unknown) Eos # (Auto) 0 (units (unknown) date) (0-450) /uL unknown) (unknown) (no (unknown) (unknown) Eos % (Auto) (2-4) (units (unknown) date) % unknown) (unknown) (no (unknown) (unknown) Eos % (Auto) 0.0 L (units (unknown) date) (2-4) % unknown) (unknown) (no (unknown) (unknown) Esterase (units (unkno wn) date) unknown) (unknown) (no (unknown) (unknown) Estimated GFR > 60 (units (unknown) date) (>60) mL/min unknown) (unknown) (no (unknown) (unknown) Estimated GFR (units ( unknown) date) (>60) mL/min unknown) (unknown) (no (unknown) (unknown) Ethyl Alcohol ( - (units (unknown) date) 10) mg/dL unknown) (unknown) (no (unknown) (unknown) Ethyl Alcohol 190 (units (unknown) date) H ( - 10) mg/dL unknown) (unknown) (no (unknown) (unknown) Exam Narrative: (units (unknown) date) unknown) (unknown) (no (unknown) (unknown) Exam (units (unkno wn) date) unknown) (unknown) (no (unknown) (unknown) Facet arthropathy, (units (unknown) date) lumbar unknown) (unknown) (no (unknown) (unknown) Family History (units (unknown) date) (Reviewed 05/08/22 unknown) @ 18:26 by Marylu Arce DO) (unknown) (no (unknown) (unknown) [place]drop (units (unkno wn) date) unknown) (unknown) (no (unknown) (unknown) GCS (units (unkno wn) date) unknown) (unknown) (no (unknown) (unknown) GEN: Patient (units (u nknown) date) appears in moderate unknown) distress. (unknown) (no (unknown) (unknown) Gait instability (units (unknown) date) unknown) (unknown) (no (unknown) (unknown) General (units (unkno wn) date) unknown) (unknown) (no (unknown) (unknown) Mcintosh coma scale (units (unknown) date) eye opening: unknown) Spontaneous (unknown) (no (unknown) (unknown) Bakari coma scale (units (unknown) date) motor response: unknown) Obey commands (unknown) (no (unknown) (unknown) Mcintosh coma scale (units (unknown) date) total score: 15 unknown) (unknown) (no (unknown) (unknown) Mcintosh coma scale (units (unknown) date) verbal response: unknown) Orientated (unknown) (no (unknown) (unknown) Globulin (1.7-4.1) (units (unknown) date) g/dL unknown) (unknown) (no (unknown) (unknown) Globulin 3.5 (units (u nknown) date) (1.7-4.1) g/dL unknown) (unknown) (no (unknown) (unknown) Glucose (70-100) (units (unknown) date) mg/dL unknown) (unknown) (no (unknown) (unknown) Glucose 115 H (units ( unknown) date) (70-100) mg/dL unknown) (unknown) (no (unknown) (unknown) HEAD: No evidence (units (unknown) date) of trauma, no unknown) raccoon/Jane sign. (unknown) (no (unknown) (unknown) HPI - GI Bleed (units (unknown) date) unknown) (unknown) (no (unknown) (unknown) HPI Narrative: (units (unknown) date) unknown) (unknown) (no (unknown) (unknown) Hct (41-53) % (units ( unknown) date) unknown) (unknown) (no (unknown) (unknown) Hct 42.0 (41-53) % (units (unknown) date) unknown) (unknown) (no (unknown) (unknown) Hepatic steatosis (units (unknown) date) unknown) (unknown) (no (unknown) (unknown) Herniated nucleus (units (unknown) date) pulposus, L4-5 unknown) (unknown) (no (unknown) (unknown) Hgb (13.5-17.5) (units (unknown) date) g/dL unknown) (unknown) (no (unknown) (unknown) Hgb 13.5 (units (unkno wn) date) (13.5-17.5) g/dL unknown) (unknown) (no (unknown) (unknown) History of Present (units (unknown) date) Illness unknown) (unknown) (no (unknown) (unknown) History of (units (unk nown) date) colostomy reversal unknown) (unknown) (no (unknown) (unknown) Home Medications (units (unknown) date) unknown) (unknown) (no (unknown) (unknown) Hyaline Casts (units ( unknown) date) (None) unknown) (unknown) (no (unknown) (unknown) Hyaline Casts (units ( unknown) date) 0-1/lpf (None) unknown) (unknown) (no (unknown) (unknown) INR (0.9-1.3) (units ( unknown) date) unknown) (unknown) (no (unknown) (unknown) INR 0.9 (0.9-1.3) (units (unknown) date) unknown) (unknown) (no (unknown) (unknown) Initial Vital (units ( unknown) date) Signs unknown) (unknown) (no (unknown) (unknown) Initial Vital (units ( unknown) date) Signs: unknown) (unknown) (no (unknown) (unknown) Interpretation: (units (unknown) date) unknown) (unknown) (no (unknown) (unknown) [facility] (units (unknown) date) [address] unknown) [place] [address] (unknown) (no (unknown) (unknown) Lab Data (units (unkno wn) date) unknown) (unknown) (no (unknown) (unknown) Lab Results (units (un known) date) unknown) (unknown) (no (unknown) (unknown) Labs: (units (unkno wn) date) unknown) (unknown) (no (unknown) (unknown) Lactate (0.7-2.1) (units (unknown) date) mmol/L unknown) (unknown) (no (unknown) (unknown) Lactate (Lactic (units (unknown) date) Acid) Stat unknown) (unknown) (no (unknown) (unknown) Lactate 7.0 H* (units (unknown) date) (0.7-2.1) mmol/L unknown) (unknown) (no (unknown) (unknown) Lactated Ringer's (units (unknown) date) (Lactated Ringers) unknown) 1,000 mls @ 1,000 mls/hr IV BOLUS ONE (unknown) (no (unknown) (unknown) Lactated Ringer's (units (unknown) date) (Lactated Ringers) unknown) 2,109.21 mls @ 703.07 mls/hr 30 ml/kg (unknown) (no (unknown) (unknown) Last Admin: (units (un known) date) 05/08/22 19:19 unknown) Dose: 260 mg (unknown) (no (unknown) (unknown) Last Admin: (units (un known) date) 05/08/22 19:20 unknown) Dose: 1,000 mls/hr (unknown) (no (unknown) (unknown) Last Admin: (units (un known) date) 05/08/22 19:31 unknown) Dose: 80 mg (unknown) (no (unknown) (unknown) Last Admin: (units (un known) date) 05/08/22 19:32 unknown) Dose: 4 mg (unknown) (no (unknown) (unknown) Limitations: no (units (unknown) date) limitations unknown) (unknown) (no (unknown) (unknown) Lymph # (Auto) (units (unknown) date) (7310-4493) /uL unknown) (unknown) (no (unknown) (unknown) Lymph # (Auto) 700 (units (unknown) date) L (1756-3518) /uL unknown) (unknown) (no (unknown) (unknown) Lymph % (Auto) (units (unknown) date) (25-40) % unknown) (unknown) (no (unknown) (unknown) Lymph % (Auto) 3.0 (units (unknown) date) L (25-40) % unknown) (unknown) (no (unknown) (unknown) MCH (26-34) PG (units (unknown) date) unknown) (unknown) (no (unknown) (unknown) MCH 31.7 (26-34) (units (unknown) date) PG unknown) (unknown) (no (unknown) (unknown) MCHC (30-36) % (units (unknown) date) unknown) (unknown) (no (unknown) (unknown) MCHC 32.3 (30-36) (units (unknown) date) % unknown) (unknown) (no (unknown) (unknown) MCV (80-100) fL (units (unknown) date) unknown) (unknown) (no (unknown) (unknown) MCV 98.2 (80-100) (units (unknown) date) fL unknown) (unknown) (no (unknown) (unknown) MDM - GI Bleed (units (unknown) date) unknown) (unknown) (no (unknown) (unknown) MDM Narrative (units ( unknown) date) unknown) (unknown) (no (unknown) (unknown) Medical History (units (unknown) date) unknown) (unknown) (no (unknown) (unknown) Medical decision (units (unknown) date) making narrative: unknown) (unknown) (no (unknown) (unknown) Medication (units (unk nown) date) Instructions unknown) Recorded Confirmed (unknown) (no (unknown) (unknown) Medication (units (unk nown) date) Instructions unknown) Recorded (unknown) (no (unknown) (unknown) Melanotic stools (units (unknown) date) unknown) (unknown) (no (unknown) (unknown) Mode of arrival: (units (unknown) date) EMS unknown) (unknown) (no (unknown) (unknown) [place] # (Auto) (units ( unknown) date) (0-900) /uL unknown) (unknown) (no (unknown) (unknown) [place] # (Auto) 400 (units (unknown) date) (0-900) /uL unknown) (unknown) (no (unknown) (unknown) [place] % (Auto) (units ( unknown) date) (3-14) % unknown) (unknown) (no (unknown) (unknown) [place] % (Auto) 1.6 (units (unknown) date) L (3-14) % unknown) (unknown) (no (unknown) (unknown) NECK: Nontender, (units (unknown) date) painless range of unknown) motion, trachea midline (unknown) (no (unknown) (unknown) NEURO: Oriented (units (unknown) date) AOx3, neuro is unknown) grossly intact, sensation and motor is normal all (unknown) (no (unknown) (unknown) Narrative (units (unkn own) date) unknown) (unknown) (no (unknown) (unknown) Neut # (Auto) (units ( unknown) date) (2317-1000) /uL unknown) (unknown) (no (unknown) (unknown) Neut # (Auto) (units ( unknown) date) 44448 H (8284-0468) unknown) /uL (unknown) (no (unknown) (unknown) Neut % (Auto) (units ( unknown) date) (50-75) % unknown) (unknown) (no (unknown) (unknown) Neut % (Auto) 95.3 (units (unknown) date) H (50-75) % unknown) (unknown) (no (unknown) (unknown) No Action (units (unkn own) date) unknown) (unknown) (no (unknown) (unknown) Ondansetron HCl (units (unknown) date) (Ondansetron 4 Mg/2 unknown) Ml Inj) 4 mg IV NOW PRN (unknown) (no (unknown) (unknown) Ordered: (units (unkno wn) date) unknown) (unknown) (no (unknown) (unknown) Orders (units (unkno wn) date) unknown) (unknown) (no (unknown) (unknown) Other No pertinent (units (unknown) date) family history in unknown) first degree relatives (unknown) (no (unknown) (unknown) Oxygen Delivery (units (unknown) date) Method 05/08/22 unknown) 17:33 (unknown) (no (unknown) (unknown) Oxygen Delivery (units (unknown) date) Method Room Air unknown) Room Air (unknown) (no (unknown) (unknown) PRN Reason: Nausea (units (unknown) date) And Vomiting unknown) (unknown) (no (unknown) (unknown) PSYCH: Normal mood (units (unknown) date) and affect unknown) (unknown) (no (unknown) (unknown) PT (10.1-12.7) (units (unknown) date) SECONDS unknown) (unknown) (no (unknown) (unknown) PT 10.4 (units (unkno wn) date) (10.1-12.7) SECONDS unknown) (unknown) (no (unknown) (unknown) Pantoprazole (units (u nknown) date) Sodium unknown) (Pantoprazole 40 Mg Vial) 80 mg IV NOW ONE (unknown) (no (unknown) (unknown) Partial (units (unkno wn) date) Thromboplastin Time unknown) Stat (unknown) (no (unknown) (unknown) Patient History (units (unknown) date) unknown) (unknown) (no (unknown) (unknown) Patient: (units (unkno wn) date) Sky Gaffney unknown) MR#: [id number] (unknown) (no (unknown) (unknown) Penicillins (units (un known) date) Allergy Severe unknown) Anaphylaxis Verified 01/02/22 08:42 (unknown) (no (unknown) (unknown) Phenobarbital (units ( unknown) date) (Phenobarbital 65 unknown) Mg/Ml Vial) 260 mg IV NOW ONE (unknown) (no (unknown) (unknown) Plt Count (units (unkn own) date) (150-400) X103/uL unknown) (unknown) (no (unknown) (unknown) Plt Count 306 (units ( unknown) date) (150-400) X103/uL unknown) (unknown) (no (unknown) (unknown) Positive for Nexus (units (unknown) date) criteria, there is unknown) no midline line tenderness, distracting (unknown) (no (unknown) (unknown) Potassium (units (unkn own) date) (3.4-5.1) mmol/L unknown) (unknown) (no (unknown) (unknown) Potassium 5.0 (units ( unknown) date) (3.4-5.1) mmol/L unknown) (unknown) (no (unknown) (unknown) Prescriptions: (units (unknown) date) unknown) (unknown) (no (unknown) (unknown) Previous Rx's (units ( unknown) date) unknown) (unknown) (no (unknown) (unknown) Procalcitonin (units ( unknown) date) (<0.5) ng/mL unknown) (unknown) (no (unknown) (unknown) Procalcitonin 0.31 (units (unknown) date) (<0.5) ng/mL unknown) (unknown) (no (unknown) (unknown) Procalcitonin Stat (units (unknown) date) unknown) (unknown) (no (unknown) (unknown) Prothrombin Time (units (unknown) date) INR Stat unknown) (unknown) (no (unknown) (unknown) Protonix for free (units (unknown) date) GI bleed and unknown) reassessment as well as repeat lactate (unknown) (no (unknown) (unknown) Pulse Oximetry 99 (units (unknown) date) 05/08/22 17:33 unknown) (unknown) (no (unknown) (unknown) Pulse Oximetry 99 (units (unknown) date) 98 unknown) (unknown) (no (unknown) (unknown) Pulse Rate 127 H (units (unknown) date) 05/08/22 17:33 unknown) (unknown) (no (unknown) (unknown) Pulse Rate 127 H (units (unknown) date) 131 H 130 H unknown) (unknown) (no (unknown) (unknown) RBC (4.5-5.9) (units ( unknown) date) X106/uL unknown) (unknown) (no (unknown) (unknown) RBC 4.27 L (units (unk nown) date) (4.5-5.9) X106/uL unknown) (unknown) (no (unknown) (unknown) RDW (11.6-14.8) % (units (unknown) date) unknown) (unknown) (no (unknown) (unknown) RDW 14.2 (units (unkno wn) date) (11.6-14.8) % unknown) (unknown) (no (unknown) (unknown) RESP: Chest is (units (unknown) date) tender on the unknown) right, patient has about a palm size area of (unknown) (no (unknown) (unknown) ROS Unobtainable: (units (unknown) date) All systems unknown) reviewed + are unremarkable except as noted in HPI (unknown) (no (unknown) (unknown) RUQ pain (units (unkno wn) date) unknown) (unknown) (no (unknown) (unknown) Rectal pain (units (un known) date) unknown) (unknown) (no (unknown) (unknown) Referrals: (units (unk nown) date) unknown) (unknown) (no (unknown) (unknown) Related Data (units (u nknown) date) unknown) (unknown) (no (unknown) (unknown) Respiratory Rate (units (unknown) date) 20 05/08/22 17:33 unknown) (unknown) (no (unknown) (unknown) Respiratory Rate (units (unknown) date) 20 14 13 unknown) (unknown) (no (unknown) (unknown) Result diagrams: (units (unknown) date) unknown) (unknown) (no (unknown) (unknown) Review of Systems (units (unknown) date) unknown) (unknown) (no (unknown) (unknown) Rx Instructions: (units (unknown) date) unknown) (unknown) (no (unknown) (unknown) SKIN: Intact, warm (units (unknown) date) and dry, no unknown) crepitus and without decubitus (unknown) (no (unknown) (unknown) Scores (units (unkno wn) date) unknown) (unknown) (no (unknown) (unknown) See Rx (units (unkno wn) date) Instructions .ROUTE unknown) .COMPLEX Qty: 90 1RF (unknown) (no (unknown) (unknown) Signed By: (units (unk nown) date) unknown) (unknown) (no (unknown) (unknown) Sinus tachycardia (units (unknown) date) rate of 130 MT 140 unknown) QRS 80 QTC [address] No acute ST elevation (unknown) (no (unknown) (unknown) Smoker (units (unkno wn) date) unknown) (unknown) (no (unknown) (unknown) Smoking Status: (units (unknown) date) Current every day unknown) smoker (unknown) (no (unknown) (unknown) Social History (units (unknown) date) (Reviewed 05/08/22 unknown) @ 18:26 by Marylu Arce DO) (unknown) (no (unknown) (unknown) Sodium (137-145) (units (unknown) date) mmol/L unknown) (unknown) (no (unknown) (unknown) Sodium 143 (units (unk nown) date) (137-145) mmol/L unknown) (unknown) (no (unknown) (unknown) Source: patient (units (unknown) date) unknown) (unknown) (no (unknown) (unknown) Stated complaint: (units (unknown) date) GI Bleed back pain unknown) (unknown) (no (unknown) (unknown) Status post (units (un known) date) cholecystectomy unknown) (unknown) (no (unknown) (unknown) Status post (units (un known) date) exploratory unknown) laparotomy (unknown) (no (unknown) (unknown) Status post (units (un known) date) rotator cuff repair unknown) (unknown) (no (unknown) (unknown) Stop: 05/08/22 (units (unknown) date) 17:49 unknown) (unknown) (no (unknown) (unknown) Stop: 05/08/22 (units (unknown) date) 19:05 unknown) (unknown) (no (unknown) (unknown) Stop: 05/08/22 (units (unknown) date) 20:03 unknown) (unknown) (no (unknown) (unknown) Stop: 05/08/22 (units (unknown) date) 22:10 unknown) (unknown) (no (unknown) (unknown) Substance Use (units ( unknown) date) Type: does not use unknown) (unknown) (no (unknown) (unknown) Surgical History (units (unknown) date) (Reviewed 05/08/22 unknown) @ 18:26 by Marylu Arce DO) (unknown) (no (unknown) (unknown) TAKE 1 CAPSULE BY (units (unknown) date) MOUTH DAILY unknown) (unknown) (no (unknown) (unknown) Temperature 98.4 F (units (unknown) date) 05/08/22 17:33 unknown) (unknown) (no (unknown) (unknown) Temperature 98.4 F (units (unknown) date) unknown) (unknown) (no (unknown) (unknown) This is a (units (unkn own) date) 56-year-old male unknown) who presents with complaint of fall 3 days ago, (unknown) (no (unknown) (unknown) This is a (units (unkn own) date) 56-year-old man unknown) with history of alcohol abuse, patient states he only (unknown) (no (unknown) (unknown) Time Seen by (units (u nknown) date) Provider: 05/08/22 unknown) 18:25 (unknown) (no (unknown) (unknown) Total Bilirubin (units (unknown) date) (0.2-1.3) mg/dL unknown) (unknown) (no (unknown) (unknown) Total Bilirubin (units (unknown) date) 0.8 (0.2-1.3) mg/dL unknown) (unknown) (no (unknown) (unknown) Total Protein (units ( unknown) date) (6.3-8.2) g/dL unknown) (unknown) (no (unknown) (unknown) Total Protein 8.2 (units (unknown) date) (6.3-8.2) g/dL unknown) (unknown) (no (unknown) (unknown) Type and Screen (units (unknown) date) Stat unknown) (unknown) (no (unknown) (unknown) U Benzodiazepines (units (unknown) date) Scrn (Negative) unknown) (unknown) (no (unknown) (unknown) U Benzodiazepines (units (unknown) date) Scrn Positive H unknown) (Negative) (unknown) (no (unknown) (unknown) U Marijuana (THC) (units (unknown) date) Screen (Negative) unknown) (unknown) (no (unknown) (unknown) U Marijuana (THC) (units (unknown) date) Screen Negative unknown) (Negative) (unknown) (no (unknown) (unknown) U Methamphetamines (units (unknown) date) Scrn (Negative) unknown) (unknown) (no (unknown) (unknown) U Methamphetamines (units (unknown) date) Scrn Negative unknown) (Negative) (unknown) (no (unknown) (unknown) U Opiates 300ng/mL (units (unknown) date) cut (Negative) unknown) (unknown) (no (unknown) (unknown) U Opiates 300ng/mL (units (unknown) date) cut Negative unknown) (Negative) (unknown) (no (unknown) (unknown) U Tricyclic (units (un known) date) Antidepress unknown) (Negative) (unknown) (no (unknown) (unknown) U Tricyclic (units (un known) date) Antidepress unknown) Negative (Negative) (unknown) (no (unknown) (unknown) Ur Amphetamines (units (unknown) date) Screen (Negative) unknown) (unknown) (no (unknown) (unknown) Ur Amphetamines (units (unknown) date) Screen Negative unknown) (Negative) (unknown) (no (unknown) (unknown) Ur Barbiturates (units (unknown) date) Screen (Negative) unknown) (unknown) (no (unknown) (unknown) Ur Barbiturates (units (unknown) date) Screen Negative unknown) (Negative) (unknown) (no (unknown) (unknown) Ur Culture (units (unk nown) date) Indicated? Cult not unknown) indicated (unknown) (no (unknown) (unknown) Ur Culture (units (unk nown) date) Indicated? unknown) (unknown) (no (unknown) (unknown) Ur MDMA Scrn (units (u nknown) date) (Ecstasy) unknown) (Negative) (unknown) (no (unknown) (unknown) Ur MDMA Scrn (units (u nknown) date) (Ecstasy) Negative unknown) (Negative) (unknown) (no (unknown) (unknown) Ur Oxycodone (units (u nknown) date) Screen (Negative) unknown) (unknown) (no (unknown) (unknown) Ur Oxycodone (units (u nknown) date) Screen Positive H unknown) (Negative) (unknown) (no (unknown) (unknown) Ur Phencyclidine (units (unknown) date) Scrn (Negative) unknown) (unknown) (no (unknown) (unknown) Ur Phencyclidine (units (unknown) date) Scrn Negative unknown) (Negative) (unknown) (no (unknown) (unknown) Ur Transition (units ( unknown) date) Epith Cell unknown) (0-5/HPF) (unknown) (no (unknown) (unknown) Ur Transition (units ( unknown) date) Epith Cell 0-1/hpf unknown) (0-5/HPF) (unknown) (no (unknown) (unknown) Urine Bacteria (units (unknown) date) (None) unknown) (unknown) (no (unknown) (unknown) Urine Bacteria (units (unknown) date) None seen (None) unknown) (unknown) (no (unknown) (unknown) Urine Cocaine (units ( unknown) date) Screen (Negative) unknown) (unknown) (no (unknown) (unknown) Urine Cocaine (units ( unknown) date) Screen Negative unknown) (Negative) (unknown) (no (unknown) (unknown) Urine Dip (units (unkn own) date) unknown) (unknown) (no (unknown) (unknown) Urine Drug Screen, (units (unknown) date) Rapid Stat unknown) (unknown) (no (unknown) (unknown) Urine Methadone (units (unknown) date) Screen (Negative) unknown) (unknown) (no (unknown) (unknown) Urine Methadone (units (unknown) date) Screen Negative unknown) (Negative) (unknown) (no (unknown) (unknown) Urine Microscopic (units (unknown) date) Stat unknown) (unknown) (no (unknown) (unknown) Urine RBC (units (unkn own) date) (0-5/HPF) unknown) (unknown) (no (unknown) (unknown) Urine RBC 0-1/hpf (units (unknown) date) (0-5/HPF) unknown) (unknown) (no (unknown) (unknown) Urine Specific (units (unknown) date) [place] 1.030 unknown) (unknown) (no (unknown) (unknown) Urine WBC (units (unkn own) date) (0-5/HPF) unknown) (unknown) (no (unknown) (unknown) Urine WBC None (units (unknown) date) seen (0-5/HPF) unknown) (unknown) (no (unknown) (unknown) Vital Signs - 8 hr (units (unknown) date) unknown) (unknown) (no (unknown) (unknown) Vital Signs (units (un known) date) unknown) (unknown) (no (unknown) (unknown) Vital signs: (units (u nknown) date) unknown) (unknown) (no (unknown) (unknown) WBC (4.5-11.0) (units (unknown) date) X103/uL unknown) (unknown) (no (unknown) (unknown) WBC 22.1 H (units (unk nown) date) (4.5-11.0) X103/uL unknown) (unknown) (no (unknown) (unknown) [Embedded Image (units (unknown) date) Not Available] unknown) (unknown) (no (unknown) (unknown) abdomen pelvis (units (unknown) date) trauma protocol, unknown) fluids, phenobarb for alcohol withdrawal, (unknown) (no (unknown) (unknown) about 3 days ago (units (unknown) date) he is unsure if he unknown) hit his head but states he hit his right (unknown) (no (unknown) (unknown) airway is normal (units (unknown) date) and with normal unknown) occlusion, No bony tenderness (unknown) (no (unknown) (unknown) alcohol intake (units (unknown) date) frequency: 3 or unknown) more drinks per day (unknown) (no (unknown) (unknown) alcohol intake: (units (unknown) date) current unknown) (unknown) (no (unknown) (unknown) allergic to (units (un known) date) penicillin. He unknown) states quit smoking 4 days ago, he states he (unknown) (no (unknown) (unknown) and below (units (unkn own) date) unknown) (unknown) (no (unknown) (unknown) at 22, platelets (units (unknown) date) of 306, patient has unknown) a lactate of 7, procalcitonin still (unknown) (no (unknown) (unknown) benzodiazepines (units (unknown) date) and oxycodone. unknown) Patient need CT of the head C-spine chest (unknown) (no (unknown) (unknown) celecoxib 200 mg (units (unknown) date) capsule See Rx unknown) Instructions .Route 03/23/21 (unknown) (no (unknown) (unknown) celecoxib 200 mg (units (unknown) date) capsule unknown) (unknown) (no (unknown) (unknown) chest and back. He (units (unknown) date) states he developed unknown) right chest pain, he states he is had a (unknown) (no (unknown) (unknown) cholecystectomy, (units (unknown) date) injury to repair unknown) with complications requiring colostomy and (unknown) (no (unknown) (unknown) consistent with (units (unknown) date) his elevated unknown) lactate. AST ALT bilirubin normal. Urine does (unknown) (no (unknown) (unknown) cyclobenzaprine 10 (units (unknown) date) mg tablet 10 mg PO unknown) TID PRN Back Pain #90 tabs 11/22/18 (unknown) (no (unknown) (unknown) cyclobenzaprine 10 (units (unknown) date) mg tablet unknown) (unknown) (no (unknown) (unknown) denies other (units (u nknown) date) surgeries described unknown) above. He denies any daily medications. He is (unknown) (no (unknown) (unknown) depression noted. (units (unknown) date) unknown) (unknown) (no (unknown) (unknown) ecchymosis on the (units (unknown) date) right lateral unknown) chest. No hematoma sort of patchy. And has (unknown) (no (unknown) (unknown) feel like. He (units ( unknown) date) denies loss of unknown) consciousness. He denies shortness of breath. (unknown) (no (unknown) (unknown) feels very shaky (units (unknown) date) like he is going unknown) through DTs. He is had a cough which he (unknown) (no (unknown) (unknown) he is tachycardic, (units (unknown) date) has tremors, he is unknown) afebrile but has not elevated white count (unknown) (no (unknown) (unknown) he noticed he is (units (unknown) date) had some brown unknown) discoloration when he vomits. He denies black (unknown) (no (unknown) (unknown) headache since (units (unknown) date) then. He states if unknown) he had migraines he feels like this would (unknown) (no (unknown) (unknown) hemotypanum, Nares (units (unknown) date) are clear, no unknown) septal hematoma, no dental or oral injury, (unknown) (no (unknown) (unknown) household members: (units (unknown) date) spouse unknown) (unknown) (no (unknown) (unknown) hydrocodone 5 (units ( unknown) date) mg-acetaminophen unknown) 325 1 tab PO Q6H PRN 03/23/21 01/02/22 (unknown) (no (unknown) (unknown) hydrocodone-acetam (units (unknown) date) inophen 5-325 mg unknown) tablet (unknown) (no (unknown) (unknown) infuse over 3 hr (units (unknown) date) (2109.21 ml) IV NOW unknown) ONE (unknown) (no (unknown) (unknown) injury, altered (units (unknown) date) mental status, unknown) neuro deficit, positive for recent EtOH. (unknown) (no (unknown) (unknown) iting for the past (units (unknown) date) 2 days possible unknown) brown emesis or coffee-ground. And alcohol (unknown) (no (unknown) (unknown) marital status: (units (unknown) date) unknown) (unknown) (no (unknown) (unknown) mg tablet (units (unkn own) date) unknown) (unknown) (no (unknown) (unknown) morning. He denies (units (unknown) date) any illicit or IV unknown) drugs. Patient states with alcohol (unknown) (no (unknown) (unknown) not show signs (units (unknown) date) fraction, alcohol unknown) is 190. Patient is positive for (unknown) (no (unknown) (unknown) omeprazole 20 mg (units (unknown) date) capsule,delayed 20 unknown) mg PO DAILY 09/22/20 01/02/22 (unknown) (no (unknown) (unknown) omeprazole 20 mg (units (unknown) date) capsule,delayed unknown) release(DR/EC) (unknown) (no (unknown) (unknown) or bloody stools. (units (unknown) date) He is had diarrhea, unknown) he denies fevers or chills. He states he (unknown) (no (unknown) (unknown) or rales (units (unkno wn) date) unknown) (unknown) (no (unknown) (unknown) other medication (units (unknown) date) is Seroquel for unknown) sleep. 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 (unknown) (unknown) patient does have (units (unknown) date) generalized tremor unknown) (unknown) (no (unknown) (unknown) pelvic rock is (units (unknown) date) negative unknown) (unknown) (no (unknown) (unknown) pending. Renal (units (unknown) date) function unknown) electrolytes are relatively normal except for CO2 of 10 (unknown) (no (unknown) (unknown) persistent (units (unk nown) date) headache, bruising unknown) on his right chest and chest pain, nausea and vom (unknown) (no (unknown) (unknown) pulses in all four (units (unknown) date) extremities unknown) (unknown) (no (unknown) (unknown) quetiapine 100 mg (units (unknown) date) tablet 100 mg PO unknown) BEDTIME 01/02/22 01/02/22 (unknown) (no (unknown) (unknown) quetiapine 100 mg (units (unknown) date) tablet unknown) (unknown) (no (unknown) (unknown) release (units (unkno wn) date) unknown) (unknown) (no (unknown) (unknown) states has been (units (unknown) date) nonproductive no unknown) bright red blood or sputum production. Patient (unknown) (no (unknown) (unknown) substance use (units ( unknown) date) type: does not use unknown) (unknown) (no (unknown) (unknown) symmetric movement, (units (unknown) date) no ecchymosis, unknown) breath sounds are normal no crackles, wheezes (unknown) (no (unknown) (unknown) temperature, (units (u nknown) date) normal range of unknown) motion of extremities with normal tendon exam, 2 (unknown) (no (unknown) (unknown) then reanastomosis (units (unknown) date) after 8 months. unknown) Patient presents today after having a fall (unknown) (no (unknown) (unknown) typically drinks (units (unknown) date) 2-3 beers that are unknown) 24 oz daily, his last drink was earlier this (unknown) (no (unknown) (unknown) withdrawal he has (units (unknown) date) not had seizures or unknown) hallucinations in the past. (unknown) (no (unknown) (unknown) withdrawals. (units (u nknown) date) Patient may have unknown) sepsis versus reactive changed alcohol withdrawal Result panel 256 (unknown) (no (unknown) (unknown) (no value) (units (unk nown) date) unknown) (unknown) (no (unknown) (unknown) .COMPLEX #90 caps (units (unknown) date) unknown) (unknown) (no (unknown) (unknown) 05/08/22 05/08/22 (units (unknown) date) 05/08/22 unknown) Range/Units (unknown) (no (unknown) (unknown) 05/08/22 17:30 (units (unknown) date) unknown) (unknown) (no (unknown) (unknown) 05/08/22 17:55 (units (unknown) date) unknown) (unknown) (no (unknown) (unknown) 05/08/22 18:00 (units (unknown) date) unknown) (unknown) (no (unknown) (unknown) 05/08/22 19:02 (units (unknown) date) unknown) (unknown) (no (unknown) (unknown) 05/08/22 20:15 (units (unknown) date) unknown) (unknown) (no (unknown) (unknown) 05/08/22 (units (unkno wn) date) unknown) (unknown) (no (unknown) (unknown) 05/17/21 (units (unkno wn) date) unknown) (unknown) (no (unknown) (unknown) 05/26/20 (units (unkno wn) date) unknown) (unknown) (no (unknown) (unknown) 05/28/21 (units (unkno wn) date) unknown) (unknown) (no (unknown) (unknown) 06/08/19 (units (unkno wn) date) unknown) (unknown) (no (unknown) (unknown) 06/12/18 (units (unkno wn) date) unknown) (unknown) (no (unknown) (unknown) 06/17/20 (units (unkno wn) date) unknown) (unknown) (no (unknown) (unknown) 06/19/19 (units (unkno wn) date) unknown) (unknown) (no (unknown) (unknown) [id number] (units (unkno wn) date) unknown) (unknown) (no (unknown) (unknown) 07/06/20 (units (unkno wn) date) unknown) (unknown) (no (unknown) (unknown) 09/26/18 (units (unkno wn) date) unknown) (unknown) (no (unknown) (unknown) 10/14/20 (units (unkno wn) date) unknown) (unknown) (no (unknown) (unknown) 01/04/19 (units (unkno wn) date) unknown) (unknown) (no (unknown) (unknown) 01/14/19 (units (unkno wn) date) unknown) (unknown) (no (unknown) (unknown) 1 tab PO Q6H PRN (units (unknown) date) unknown) (unknown) (no (unknown) (unknown) 1. No acute (units (un known) date) fracture or unknown) subluxation. (unknown) (no (unknown) (unknown) 1. No acute (units (un known) date) intracranial unknown) abnormality. (unknown) (no (unknown) (unknown) 1. No acute (units (un known) date) traumatic unknown) abnormality within the chest, abdomen, or pelvis. (unknown) (no (unknown) (unknown) 10 mg PO TID PRN (units (unknown) date) (Reason: Back Pain) unknown) Qty: 90 2RF (unknown) (no (unknown) (unknown) 02/09/22 (units (unkno wn) date) unknown) (unknown) (no (unknown) (unknown) 02/15/21 (units (unkno wn) date) unknown) (unknown) (no (unknown) (unknown) 02/22/21 (units (unkno wn) date) unknown) (unknown) (no (unknown) (unknown) 02/26/22 (units (unkno wn) date) unknown) (unknown) (no (unknown) (unknown) 100 mg PO BEDTIME (units (unknown) date) unknown) (unknown) (no (unknown) (unknown) [address] [place] [address] (units (unknown) date) unknown) (unknown) (no (unknown) (unknown) 17:30 17:30 17:30 (units (unknown) date) unknown) (unknown) (no (unknown) (unknown) 17:33 05/08/22 (units (unknown) date) unknown) (unknown) (no (unknown) (unknown) 17:49 05/08/22 (units (unknown) date) unknown) (unknown) (no (unknown) (unknown) 17:55 18:00 18:00 (units (unknown) date) unknown) (unknown) (no (unknown) (unknown) 18:00 (units (unkno wn) date) unknown) (unknown) (no (unknown) (unknown) 2. Diffuse mild (units (unknown) date) esophageal wall unknown) thickening consistent with a nonspecific (unknown) (no (unknown) (unknown) 2. Mild chronic (units (unknown) date) white matter small unknown) vessel ischemic changes and cerebral volume (unknown) (no (unknown) (unknown) 20 mg PO DAILY (units (unknown) date) unknown) (unknown) (no (unknown) (unknown) 3. Diffuse mild (units (unknown) date) wall thickening unknown) throughout the colon consistent with an (unknown) (no (unknown) (unknown) 4 extremities (units ( unknown) date) moving, cranial unknown) nerves II through XII are intact, GCS is 1, (unknown) (no (unknown) (unknown) 4. Hepatic (units (unk nown) date) steatosis.? unknown) (unknown) (no (unknown) (unknown) ? (units (unkno wn) date) unknown) (unknown) (no (unknown) (unknown) ? (units (unkno wn) date) unknown) (unknown) (no (unknown) (unknown) ?Additional 7 mm (units (unknown) date) thick coronal unknown) maximum intensity projection (MIP) reformats (unknown) (no (unknown) (unknown) ABDOMEN: (units (unkno wn) date) unknown) (unknown) (no (unknown) (unknown) ABG/GI: Nontender, (units (unknown) date) soft, normal bowel unknown) sounds, no distention, no organomegaly, (unknown) (no (unknown) (unknown) ALT (<50) IU/L (units (unknown) date) unknown) (unknown) (no (unknown) (unknown) ALT 36 (<50) IU/L (units (unknown) date) unknown) (unknown) (no (unknown) (unknown) APTT (26-36) (units (u nknown) date) SECONDS unknown) (unknown) (no (unknown) (unknown) APTT 28 (26-36) (units (unknown) date) SECONDS unknown) (unknown) (no (unknown) (unknown) AST (17-59) IU/L (units (unknown) date) unknown) (unknown) (no (unknown) (unknown) AST 87 H (17-59) (units (unknown) date) IU/L unknown) (unknown) (no (unknown) (unknown) Abdomen Ultrasound (units (unknown) date) (Signed) unknown) (unknown) (no (unknown) (unknown) Abdomen/Pelvis CT (units (unknown) date) (Signed) unknown) (unknown) (no (unknown) (unknown) Abdominal Nodes:? (units (unknown) date) No retroperitoneal unknown) or mesenteric adenopathy by size criteria.? (unknown) (no (unknown) (unknown) Accession Number: (units (unknown) date) [id number] ?? unknown) (unknown) (no (unknown) (unknown) Accession Number: (units (unknown) date) [id number] ?? unknown) (unknown) (no (unknown) (unknown) Accession Number: (units (unknown) date) [id number] ?? unknown) (unknown) (no (unknown) (unknown) Acct:[id number] (units (unknown) date) unknown) (unknown) (no (unknown) (unknown) Adrenal Glands:? (units (unknown) date) No adrenal unknown) nodules.? ? (unknown) (no (unknown) (unknown) After the (units (unkn own) date) administration of unknown) intravenous contrast, 5 mm thick sections acquired (unknown) (no (unknown) (unknown) Age/Sex: 56 / M (units (unknown) date) unknown) (unknown) (no (unknown) (unknown) Albumin (3.5-5.0) (units (unknown) date) g/dL unknown) (unknown) (no (unknown) (unknown) Albumin 4.7 (units (un known) date) (3.5-5.0) g/dL unknown) (unknown) (no (unknown) (unknown) Albumin/Globulin (units (unknown) date) Ratio (1.0-2.8) unknown) (unknown) (no (unknown) (unknown) Albumin/Globulin (units (unknown) date) Ratio 1.3 (1.0-2.8) unknown) (unknown) (no (unknown) (unknown) Alcohol abuse with (units (unknown) date) withdrawal, unknown) Traumatic ecchymosis of right thoracic region (unknown) (no (unknown) (unknown) Alcohol type: beer (units (unknown) date) unknown) (unknown) (no (unknown) (unknown) Alcoholism (units (unk nown) date) unknown) (unknown) (no (unknown) (unknown) Alkaline (units (unkno wn) date) Phosphatase unknown) (38-126) U/L (unknown) (no (unknown) (unknown) Alkaline (units (unkno wn) date) Phosphatase 130 H unknown) (38-126) U/L (unknown) (no (unknown) (unknown) Allergies (units (unkn own) date) unknown) (unknown) (no (unknown) (unknown) Allergy/Adv: (units (u nknown) date) Penicillins unknown) (unknown) (no (unknown) (unknown) Allergy/AdvReac (units (unknown) date) Type Severity unknown) Reaction Status Date / Time (unknown) (no (unknown) (unknown) Amorphous Sediment (units (unknown) date) 1 unknown) (unknown) (no (unknown) (unknown) Amorphous Sediment (units (unknown) date) unknown) (unknown) (no (unknown) (unknown) [place], [place] (units ( unknown) date) [id number] unknown) (unknown) (no (unknown) (unknown) Antibody Screen (units (unknown) date) Negative unknown) (unknown) (no (unknown) (unknown) Antibody Screen (units (unknown) date) unknown) (unknown) (no (unknown) (unknown) Approved by: (units (u nknown) date) Robert Macario, unknown) M.D. on 05/08/2022 at 20:08? (unknown) (no (unknown) (unknown) Approved by: (units (u nknown) date) Robert Macario, unknown) M.D. on 05/08/2022 at 20:17?? (unknown) (no (unknown) (unknown) Approved by: (units (u nknown) date) Robert Macario, unknown) M.D. on 05/08/2022 at 20:29?? (unknown) (no (unknown) (unknown) Attestation: I (units (unknown) date) personally reviewed unknown) and interpreted this ECG as follows: (unknown) (no (unknown) (unknown) Axillae: No (units (un known) date) lymphadenopathy by unknown) size criteria. (unknown) (no (unknown) (unknown) BACK: No CVA (units (u nknown) date) tenderness, no unknown) vertebral tenderness, no step-off's, no crepitus (unknown) (no (unknown) (unknown) BUN (9-20) mg/dL (units (unknown) date) unknown) (unknown) (no (unknown) (unknown) BUN 12 (9-20) (units ( unknown) date) mg/dL unknown) (unknown) (no (unknown) (unknown) BUN/Creatinine (units (unknown) date) Ratio (6-22) unknown) (unknown) (no (unknown) (unknown) BUN/Creatinine (units (unknown) date) Ratio 10.8 (6-22) unknown) (unknown) (no (unknown) (unknown) Baso # (Auto) (units ( unknown) date) (0-100) /uL unknown) (unknown) (no (unknown) (unknown) Baso # (Auto) 0 (units (unknown) date) (0-100) /uL unknown) (unknown) (no (unknown) (unknown) Baso % (Auto) (units ( unknown) date) (0-2) % unknown) (unknown) (no (unknown) (unknown) Baso % (Auto) 0.1 (units (unknown) date) (0-2) % unknown) (unknown) (no (unknown) (unknown) Bedside Urine (units ( unknown) date) Bilirubin - unknown) Negative (unknown) (no (unknown) (unknown) Bedside Urine (units ( unknown) date) Glucose Negative unknown) (unknown) (no (unknown) (unknown) Bedside Urine (units ( unknown) date) Ketone +++ 80 unknown) (unknown) (no (unknown) (unknown) Bedside Urine (units ( unknown) date) Leukocytes - unknown) Negative (unknown) (no (unknown) (unknown) Bedside Urine (units ( unknown) date) Nitrite - Negative unknown) (unknown) (no (unknown) (unknown) Bedside Urine (units ( unknown) date) Occult Blood - unknown) Negative (unknown) (no (unknown) (unknown) Bedside Urine (units ( unknown) date) Protein + 30 unknown) (unknown) (no (unknown) (unknown) Bedside Urine (units ( unknown) date) Urobilinogen - unknown) Negative (unknown) (no (unknown) (unknown) Bedside Urine pH (units (unknown) date) 6.0 unknown) (unknown) (no (unknown) (unknown) Biliary ducts:? No (units (unknown) date) biliary ductal unknown) dilatation.? ? (unknown) (no (unknown) (unknown) Bladder:? (units (unkn own) date) Unremarkable.? ? unknown) (unknown) (no (unknown) (unknown) Blood Culture Stat (units (unknown) date) unknown) (unknown) (no (unknown) (unknown) Blood Pressure (units (unknown) date) 132/85 05/08/22 unknown) 17:33 (unknown) (no (unknown) (unknown) Blood Pressure (units (unknown) date) 132/85 unknown) (unknown) (no (unknown) (unknown) Blood Type O (units (u nknown) date) Negative unknown) (unknown) (no (unknown) (unknown) Blood Type (units (unk nown) date) unknown) (unknown) (no (unknown) (unknown) Bones:? No acute (units (unknown) date) fractures unknown) identified. (unknown) (no (unknown) (unknown) Bones:? No acute (units (unknown) date) fractures unknown) identified.? Visualized osseous structures (unknown) (no (unknown) (unknown) Bones:? No acute (units (unknown) date) fractures or unknown) subluxation.? There is minimal anterolisthesis at (unknown) (no (unknown) (unknown) Brain:? No (units (unk nown) date) intracranial unknown) hemorrhage, mass, or mass effect.? There are (unknown) (no (unknown) (unknown) C4-C5 (units (unkno wn) date) unknown) (unknown) (no (unknown) (unknown) CHEST: (units (unkno wn) date) unknown) (unknown) (no (unknown) (unknown) COMPARISON:? None. (units (unknown) date) unknown) (unknown) (no (unknown) (unknown) CSF spaces:? Basal (units (unknown) date) cisterns are unknown) patent.? No extra-axial fluid collections.? (unknown) (no (unknown) (unknown) CT - cervical (units ( unknown) date) spine: unknown) (unknown) (no (unknown) (unknown) CT Scan Report (units (unknown) date) unknown) (unknown) (no (unknown) (unknown) CT cervical spine (units (unknown) date) wo con Stat unknown) (unknown) (no (unknown) (unknown) CT chest abd pel w (units (unknown) date) con Stat unknown) (unknown) (no (unknown) (unknown) CT (units (unkno wn) date) chest/abd/pelvis: unknown) (unknown) (no (unknown) (unknown) CT head/brain wo (units (unknown) date) con Stat unknown) (unknown) (no (unknown) (unknown) CT scan - head: (units (unknown) date) unknown) (unknown) (no (unknown) (unknown) CVS: Heart sounds (units (unknown) date) are normal, no unknown) murmur noted, No JVD. Patient is tachycardic. (unknown) (no (unknown) (unknown) Calcium (8.4-10.2) (units (unknown) date) mg/dL unknown) (unknown) (no (unknown) (unknown) Calcium 8.4 (units (un known) date) (8.4-10.2) mg/dL unknown) (unknown) (no (unknown) (unknown) Carbon Dioxide (units (unknown) date) (22-32) mmol/L unknown) (unknown) (no (unknown) (unknown) Carbon Dioxide 10 (units (unknown) date) L (22-32) mmol/L unknown) (unknown) (no (unknown) (unknown) Cervical Spine CT (units (unknown) date) (Signed) unknown) (unknown) (no (unknown) (unknown) Chest Wall:? (units (u nknown) date) Unremarkable.? unknown) (unknown) (no (unknown) (unknown) Chest/Abdomen/Pelv (units (unknown) date) is CT (Signed) unknown) (unknown) (no (unknown) (unknown) Chief complaint: (units (unknown) date) GI Bleed unknown) (unknown) (no (unknown) (unknown) Chloride (98-107) (units (unknown) date) mmol/L unknown) (unknown) (no (unknown) (unknown) Chloride 101 (units (u nknown) date) (98-107) mmol/L unknown) (unknown) (no (unknown) (unknown) Chronic back pain (units (unknown) date) unknown) (unknown) (no (unknown) (unknown) Clinical (units (unkno wn) date) Impression: unknown) (unknown) (no (unknown) (unknown) Close (units (unkno wn) date) unknown) (unknown) (no (unknown) (unknown) Complete Blood (units (unknown) date) Count AUTO DIFF unknown) Stat (unknown) (no (unknown) (unknown) Comprehensive (units ( unknown) date) Metabolic Panel unknown) Stat (unknown) (no (unknown) (unknown) Lavelle Griffin, (units (unknown) date) [Primary Care unknown) Provider] (unknown) (no (unknown) (unknown) Course (units (unkno wn) date) unknown) (unknown) (no (unknown) (unknown) Creatinine (units (unk nown) date) (0.66-1.25) mg/dL unknown) (unknown) (no (unknown) (unknown) Creatinine 1.11 (units (unknown) date) (0.66-1.25) mg/dL unknown) (unknown) (no (unknown) (unknown) : 1965 (units (unknown) date) Acct:[id number] unknown) (unknown) (no (unknown) (unknown) : 1965 (units (unknown) date) unknown) (unknown) (no (unknown) (unknown) Date of Service: (units (unknown) date) 05/08/22 unknown) (unknown) (no (unknown) (unknown) Degenerative disc (units (unknown) date) disease unknown) (unknown) (no (unknown) (unknown) Departure (units (unkn own) date) unknown) (unknown) (no (unknown) (unknown) Dominick Cook (units (u nknown) date) unknown) (unknown) (no (unknown) (unknown) Dictated by: (units (u nknown) date) Robert Macario, unknown) Lulu on 05/08/2022 at 20:02 ? ? (unknown) (no (unknown) (unknown) Dictated by: (units (u nknown) date) Robert Macario, unknown) Lulu on 05/08/2022 at 20:08 ? ? (unknown) (no (unknown) (unknown) Dictated by: (units (u nknown) date) Robert Macario, unknown) Lulu on 05/08/2022 at 20:17 ? ? (unknown) (no (unknown) (unknown) Discharge Plan (units (unknown) date) unknown) (unknown) (no (unknown) (unknown) Discontinued (units (u nknown) date) Medications unknown) (unknown) (no (unknown) (unknown) Documented By: AT (units (unknown) date) unknown) (unknown) (no (unknown) (unknown) Does have pain (units (unknown) date) with movement. He unknown) is had nausea and vomiting for the past 2 days (unknown) (no (unknown) (unknown) Dose Instruction: (units (unknown) date) unknown) (unknown) (no (unknown) (unknown) ECG Data (units (unkno wn) date) unknown) (unknown) (no (unknown) (unknown) ED Orders (units (unkn own) date) unknown) (unknown) (no (unknown) (unknown) EKG-12 Lead Stat (units (unknown) date) unknown) (unknown) (no (unknown) (unknown) ENT: External (units ( unknown) date) inspection normal, unknown) trachea is midline, TM's are normal no (unknown) (no (unknown) (unknown) ER Physician: (units ( unknown) date) Marylu Arce DKacie unknown) (unknown) (no (unknown) (unknown) ETOH [Ethanol (units ( unknown) date) (ETOH)] Stat unknown) (unknown) (no (unknown) (unknown) EXT: Atraumatic, (units (unknown) date) hips are nontender, unknown) no pedal edema, normal color and (unknown) (no (unknown) (unknown) EYES: PERRLA, EOMI (units (unknown) date) unknown) (unknown) (no (unknown) (unknown) Emergency Report (units (unknown) date) unknown) (unknown) (no (unknown) (unknown) Eos # (Auto) (units (u nknown) date) (0-450) /uL unknown) (unknown) (no (unknown) (unknown) Eos # (Auto) 0 (units (unknown) date) (0-450) /uL unknown) (unknown) (no (unknown) (unknown) Eos % (Auto) (2-4) (units (unknown) date) % unknown) (unknown) (no (unknown) (unknown) Eos % (Auto) 0.0 L (units (unknown) date) (2-4) % unknown) (unknown) (no (unknown) (unknown) Esophagus:? There (units (unknown) date) is mild concentric unknown) esophageal wall thickening.? No hiatal (unknown) (no (unknown) (unknown) Esterase (units (unkno wn) date) unknown) (unknown) (no (unknown) (unknown) Estimated GFR > 60 (units (unknown) date) (>60) mL/min unknown) (unknown) (no (unknown) (unknown) Estimated GFR (units ( unknown) date) (>60) mL/min unknown) (unknown) (no (unknown) (unknown) Ethyl Alcohol ( - (units (unknown) date) 10) mg/dL unknown) (unknown) (no (unknown) (unknown) Ethyl Alcohol 190 (units (unknown) date) H ( - 10) mg/dL unknown) (unknown) (no (unknown) (unknown) Exam Narrative: (units (unknown) date) unknown) (unknown) (no (unknown) (unknown) Exam (units (unkno wn) date) unknown) (unknown) (no (unknown) (unknown) FINDINGS:? (units (unk nown) date) unknown) (unknown) (no (unknown) (unknown) Facet Joint (units (un known) date) Injection X-Ray unknown) (Signed) (unknown) (no (unknown) (unknown) Facet arthropathy, (units (unknown) date) lumbar unknown) (unknown) (no (unknown) (unknown) Family History (units (unknown) date) (Reviewed 05/08/22 unknown) @ 18:26 by Marylu Arce DO) (unknown) (no (unknown) (unknown) [place] (units (unkno wn) date) unknown) (unknown) (no (unknown) (unknown) GCS (units (unkno wn) date) unknown) (unknown) (no (unknown) (unknown) GEN: Patient (units (u nknown) date) appears in moderate unknown) distress. (unknown) (no (unknown) (unknown) Gait instability (units (unknown) date) unknown) (unknown) (no (unknown) (unknown) Gallbladder:? (units ( unknown) date) Surgically absent. unknown) (unknown) (no (unknown) (unknown) General (units (unkno wn) date) unknown) (unknown) (no (unknown) (unknown) Bakari coma scale (units (unknown) date) eye opening: unknown) Spontaneous (unknown) (no (unknown) (unknown) Bakari coma scale (units (unknown) date) motor response: unknown) Obey commands (unknown) (no (unknown) (unknown) Mcintosh coma scale (units (unknown) date) total score: 15 unknown) (unknown) (no (unknown) (unknown) Bakari coma scale (units (unknown) date) verbal response: unknown) Orientated (unknown) (no (unknown) (unknown) Globulin (1.7-4.1) (units (unknown) date) g/dL unknown) (unknown) (no (unknown) (unknown) Globulin 3.5 (units (u nknown) date) (1.7-4.1) g/dL unknown) (unknown) (no (unknown) (unknown) Glucose (70-100) (units (unknown) date) mg/dL unknown) (unknown) (no (unknown) (unknown) Glucose 115 H (units ( unknown) date) (70-100) mg/dL unknown) (unknown) (no (unknown) (unknown) Nga Whiting (units ( unknown) date) unknown) (unknown) (no (unknown) (unknown) HEAD: No evidence (units (unknown) date) of trauma, no unknown) raccoon/Jane sign. (unknown) (no (unknown) (unknown) HPI - GI Bleed (units (unknown) date) unknown) (unknown) (no (unknown) (unknown) HPI Narrative: (units (unknown) date) unknown) (unknown) (no (unknown) (unknown) Vito Yarbrough (units (unknown) date) unknown) (unknown) (no (unknown) (unknown) Hct (41-53) % (units ( unknown) date) unknown) (unknown) (no (unknown) (unknown) Hct 42.0 (41-53) % (units (unknown) date) unknown) (unknown) (no (unknown) (unknown) Head CT (Signed) (units (unknown) date) unknown) (unknown) (no (unknown) (unknown) Heart: Heart size (units (unknown) date) is normal.? No unknown) pericardial effusion. (unknown) (no (unknown) (unknown) Hepatic steatosis (units (unknown) date) unknown) (unknown) (no (unknown) (unknown) Herniated nucleus (units (unknown) date) pulposus, L4-5 unknown) (unknown) (no (unknown) (unknown) Hgb (13.5-17.5) (units (unknown) date) g/dL unknown) (unknown) (no (unknown) (unknown) Hgb 13.5 (units (unkno wn) date) (13.5-17.5) g/dL unknown) (unknown) (no (unknown) (unknown) Hip X-Ray (Signed) (units (unknown) date) unknown) (unknown) (no (unknown) (unknown) History of Present (units (unknown) date) Illness unknown) (unknown) (no (unknown) (unknown) History of (units (unk nown) date) colostomy reversal unknown) (unknown) (no (unknown) (unknown) Home Medications (units (unknown) date) unknown) (unknown) (no (unknown) (unknown) Hyaline Casts (units ( unknown) date) (None) unknown) (unknown) (no (unknown) (unknown) Hyaline Casts (units ( unknown) date) 0-1/lpf (None) unknown) (unknown) (no (unknown) (unknown) IMPRESSION:? (units (u nknown) date) unknown) (unknown) (no (unknown) (unknown) INDICATIONS:? etoh (units (unknown) date) withdrawls, falls, unknown) bruising chest, kilgore, vomiting (unknown) (no (unknown) (unknown) INR (0.9-1.3) (units ( unknown) date) unknown) (unknown) (no (unknown) (unknown) INR 0.9 (0.9-1.3) (units (unknown) date) unknown) (unknown) (no (unknown) (unknown) Image quality:? (units (unknown) date) Excellent.? unknown) (unknown) (no (unknown) (unknown) Imaging Data (units (u nknown) date) unknown) (unknown) (no (unknown) (unknown) Initial Vital (units ( unknown) date) Signs unknown) (unknown) (no (unknown) (unknown) Initial Vital (units ( unknown) date) Signs: unknown) (unknown) (no (unknown) (unknown) Injection Lumbar, (units (unknown) date) Sacrum (Signed) unknown) (unknown) (no (unknown) (unknown) Interpretation: (units (unknown) date) unknown) (unknown) (no (unknown) (unknown) [facility] (units (unknown) date) [address] unknown) [place] [address] (unknown) (no (unknown) (unknown) [facility] (units (unknown) date) unknown) (unknown) (no (unknown) (unknown) Bill,Woodrow (units (unknown) date) unknown) (unknown) (no (unknown) (unknown) Kidneys and (units (un known) date) Ureters:? No unknown) hydronephrosis.? ? (unknown) (no (unknown) (unknown) Mic Barnett (units ( unknown) date) unknown) (unknown) (no (unknown) (unknown) Martha Whitman (units (un known) date) unknown) (unknown) (no (unknown) (unknown) [facility]nee MRI (Signed) (units (unknown) date) unknown) (unknown) (no (unknown) (unknown) Knee X-Ray (units (unk nown) date) (Signed) unknown) (unknown) (no (unknown) (unknown) Lab Data (units (unkno wn) date) unknown) (unknown) (no (unknown) (unknown) Lab Results (units (un known) date) unknown) (unknown) (no (unknown) (unknown) Labs: (units (unkno wn) date) unknown) (unknown) (no (unknown) (unknown) Lactate (0.7-2.1) (units (unknown) date) mmol/L unknown) (unknown) (no (unknown) (unknown) Lactate (Lactic (units (unknown) date) Acid) Stat unknown) (unknown) (no (unknown) (unknown) Lactate 7.0 H* (units (unknown) date) (0.7-2.1) mmol/L unknown) (unknown) (no (unknown) (unknown) Lactated Ringer's (units (unknown) date) (Lactated Ringers) unknown) 1,000 mls @ 1,000 mls/hr IV BOLUS ONE (unknown) (no (unknown) (unknown) Lactated Ringer's (units (unknown) date) (Lactated Ringers) unknown) 2,109.21 mls @ 703.07 mls/hr 30 ml/kg (unknown) (no (unknown) (unknown) Last Admin: (units (un known) date) 05/08/22 19:19 unknown) Dose: 260 mg (unknown) (no (unknown) (unknown) Last Admin: (units (un known) date) 05/08/22 19:20 unknown) Dose: 1,000 mls/hr (unknown) (no (unknown) (unknown) Last Admin: (units (un known) date) 05/08/22 19:31 unknown) Dose: 80 mg (unknown) (no (unknown) (unknown) Last Admin: (units (un known) date) 05/08/22 19:32 unknown) Dose: 4 mg (unknown) (no (unknown) (unknown) Launch?Image (units (u nknown) date) unknown) (unknown) (no (unknown) (unknown) Limitations: no (units (unknown) date) limitations unknown) (unknown) (no (unknown) (unknown) Liver:? No hepatic (units (unknown) date) lacerations or unknown) perihepatic fluid collections.? There is (unknown) (no (unknown) (unknown) Loc: ED (units (unkno wn) date) unknown) (unknown) (no (unknown) (unknown) [place]: No (units (unknown) date) lymphadenopathy by unknown) size criteria. (unknown) (no (unknown) (unknown) Lumbar Spine MRI (units (unknown) date) (Signed) unknown) (unknown) (no (unknown) (unknown) Lumbar Spine X-Ray (units (unknown) date) (Signed) unknown) (unknown) (no (unknown) (unknown) Lungs and (units (unkn own) date) Airways:? No unknown) pulmonary contusions or lacerations.? No acute (unknown) (no (unknown) (unknown) Lymph # (Auto) (units (unknown) date) (4713-0144) /uL unknown) (unknown) (no (unknown) (unknown) Lymph # (Auto) 700 (units (unknown) date) L (6982-6858) /uL unknown) (unknown) (no (unknown) (unknown) Lymph % (Auto) (units (unknown) date) (25-40) % unknown) (unknown) (no (unknown) (unknown) Lymph % (Auto) 3.0 (units (unknown) date) L (25-40) % unknown) (unknown) (no (unknown) (unknown) MCH (26-34) PG (units (unknown) date) unknown) (unknown) (no (unknown) (unknown) MCH 31.7 (26-34) (units (unknown) date) PG unknown) (unknown) (no (unknown) (unknown) MCHC (30-36) % (units (unknown) date) unknown) (unknown) (no (unknown) (unknown) MCHC 32.3 (30-36) (units (unknown) date) % unknown) (unknown) (no (unknown) (unknown) MCV (80-100) fL (units (unknown) date) unknown) (unknown) (no (unknown) (unknown) MCV 98.2 (80-100) (units (unknown) date) fL unknown) (unknown) (no (unknown) (unknown) MDM - GI Bleed (units (unknown) date) unknown) (unknown) (no (unknown) (unknown) MDM Narrative (units ( unknown) date) unknown) (unknown) (no (unknown) (unknown) MR#: [id number] (units (unknown) date) unknown) (unknown) (no (unknown) (unknown) Mediastinum and (units (unknown) date) Marissa: No unknown) lymphadenopathy by size criteria.? No definite (unknown) (no (unknown) (unknown) Medical History (units (unknown) date) unknown) (unknown) (no (unknown) (unknown) Medical decision (units (unknown) date) making narrative: unknown) (unknown) (no (unknown) (unknown) Medication (units (unk nown) date) Instructions unknown) Recorded Confirmed (unknown) (no (unknown) (unknown) Medication (units (unk nown) date) Instructions unknown) Recorded (unknown) (no (unknown) (unknown) Melanotic stools (units (unknown) date) unknown) (unknown) (no (unknown) (unknown) Miscellaneous: No (units (unknown) date) inguinal hernias unknown) are seen. ? ? (unknown) (no (unknown) (unknown) Mode of arrival: (units (unknown) date) EMS unknown) (unknown) (no (unknown) (unknown) [place] # (Auto) (units ( unknown) date) (0-900) /uL unknown) (unknown) (no (unknown) (unknown) [place] # (Auto) 400 (units (unknown) date) (0-900) /uL unknown) (unknown) (no (unknown) (unknown) [place] % (Auto) (units ( unknown) date) (3-14) % unknown) (unknown) (no (unknown) (unknown) [place] % (Auto) 1.6 (units (unknown) date) L (3-14) % unknown) (unknown) (no (unknown) (unknown) NECK: Nontender, (units (unknown) date) painless range of unknown) motion, trachea midline (unknown) (no (unknown) (unknown) NEURO: Oriented (units (unknown) date) AOx3, neuro is unknown) grossly intact, sensation and motor is normal all (unknown) (no (unknown) (unknown) Narrative (units (unkn own) date) unknown) (unknown) (no (unknown) (unknown) Neut # (Auto) (units ( unknown) date) (1785-0062) /uL unknown) (unknown) (no (unknown) (unknown) Neut # (Auto) (units ( unknown) date) 24998 H (3999-5919) unknown) /uL (unknown) (no (unknown) (unknown) Neut % (Auto) (units ( unknown) date) (50-75) % unknown) (unknown) (no (unknown) (unknown) Neut % (Auto) 95.3 (units (unknown) date) H (50-75) % unknown) (unknown) (no (unknown) (unknown) No Action (units (unkn own) date) unknown) (unknown) (no (unknown) (unknown) Noncontrast 3 mm (units (unknown) date) thick sections unknown) acquired from the skull base to the T4 level.? (unknown) (no (unknown) (unknown) Noncontrast 4.5 mm (units (unknown) date) thick angled axial unknown) sections acquired from the foramen magnum (unknown) (no (unknown) (unknown) Ondansetron HCl (units (unknown) date) (Ondansetron 4 Mg/2 unknown) Ml Inj) 4 mg IV NOW PRN (unknown) (no (unknown) (unknown) Ordered: (units (unkno wn) date) unknown) (unknown) (no (unknown) (unknown) Ordering Provider: (units (unknown) date) Marylu Arce D.O. unknown) (unknown) (no (unknown) (unknown) Orders (units (unkno wn) date) unknown) (unknown) (no (unknown) (unknown) Other No pertinent (units (unknown) date) family history in unknown) first degree relatives (unknown) (no (unknown) (unknown) Oxygen Delivery (units (unknown) date) Method 05/08/22 unknown) 17:33 (unknown) (no (unknown) (unknown) Oxygen Delivery (units (unknown) date) Method Room Air unknown) Room Air (unknown) (no (unknown) (unknown) PELVIS: (units (unkno wn) date) unknown) (unknown) (no (unknown) (unknown) PRN Reason: Nausea (units (unknown) date) And Vomiting unknown) (unknown) (no (unknown) (unknown) PROCEDURE:? CT (units (unknown) date) CERVICAL SPINE WO unknown) CON (unknown) (no (unknown) (unknown) PROCEDURE:? CT (units (unknown) date) CHEST ABD PEL W CON unknown) (unknown) (no (unknown) (unknown) PROCEDURE:? CT (units (unknown) date) HEAD/BRAIN WO CON unknown) (unknown) (no (unknown) (unknown) PSYCH: Normal mood (units (unknown) date) and affect unknown) (unknown) (no (unknown) (unknown) PT (10.1-12.7) (units (unknown) date) SECONDS unknown) (unknown) (no (unknown) (unknown) PT 10.4 (units (unkno wn) date) (10.1-12.7) SECONDS unknown) (unknown) (no (unknown) (unknown) Pancreas:? (units (unk nown) date) Unremarkable.? ? unknown) (unknown) (no (unknown) (unknown) Pantoprazole (units (u nknown) date) Sodium unknown) (Pantoprazole 40 Mg Vial) 80 mg IV NOW ONE (unknown) (no (unknown) (unknown) Partial (units (unkno wn) date) Thromboplastin Time unknown) Stat (unknown) (no (unknown) (unknown) Patient History (units (unknown) date) unknown) (unknown) (no (unknown) (unknown) Patient: (units (unkno wn) date) Sky Gaffney unknown) MR#: [id number] (unknown) (no (unknown) (unknown) Patient: (units (unkno wn) date) Sky Gaffney unknown) (unknown) (no (unknown) (unknown) Pelvic Nodes: No (units (unknown) date) enlarged lymph unknown) nodes.? (unknown) (no (unknown) (unknown) Pelvic Organs:? (units (unknown) date) Unremarkable.? ? unknown) (unknown) (no (unknown) (unknown) Penicillins (units (un known) date) Allergy Severe unknown) Anaphylaxis Verified 01/02/22 08:42 (unknown) (no (unknown) (unknown) Peritoneum:? No (units (unknown) date) abnormal unknown) intraperitoneal fluid.? No free air.? (unknown) (no (unknown) (unknown) Robert Macario (units (un known) date) unknown) (unknown) (no (unknown) (unknown) Phenobarbital (units ( unknown) date) (Phenobarbital 65 unknown) Mg/Ml Vial) 260 mg IV NOW ONE (unknown) (no (unknown) (unknown) Pleura: No (units (unk nown) date) pneumothorax or unknown) pleural effusions.? There is pleural-parenchymal (unknown) (no (unknown) (unknown) Plt Count (units (unkn own) date) (150-400) X103/uL unknown) (unknown) (no (unknown) (unknown) Plt Count 306 (units ( unknown) date) (150-400) X103/uL unknown) (unknown) (no (unknown) (unknown) Positive for Nexus (units (unknown) date) criteria, there is unknown) no midline line tenderness, distracting (unknown) (no (unknown) (unknown) Potassium (units (unkn own) date) (3.4-5.1) mmol/L unknown) (unknown) (no (unknown) (unknown) Potassium 5.0 (units ( unknown) date) (3.4-5.1) mmol/L unknown) (unknown) (no (unknown) (unknown) Prescriptions: (units (unknown) date) unknown) (unknown) (no (unknown) (unknown) Previous Rx's (units ( unknown) date) unknown) (unknown) (no (unknown) (unknown) Procalcitonin (units ( unknown) date) (<0.5) ng/mL unknown) (unknown) (no (unknown) (unknown) Procalcitonin 0.31 (units (unknown) date) (<0.5) ng/mL unknown) (unknown) (no (unknown) (unknown) Procalcitonin Stat (units (unknown) date) unknown) (unknown) (no (unknown) (unknown) Procedure: CT (units ( unknown) date) cervical spine wo unknown) con (unknown) (no (unknown) (unknown) Procedure: CT (units ( unknown) date) chest abd pel w con unknown) (unknown) (no (unknown) (unknown) Procedure: CT (units ( unknown) date) head/brain wo con unknown) (unknown) (no (unknown) (unknown) Prothrombin Time (units (unknown) date) INR Stat unknown) (unknown) (no (unknown) (unknown) Protonix for free (units (unknown) date) GI bleed and unknown) reassessment as well as repeat lactate. Head CT, (unknown) (no (unknown) (unknown) Pulse Oximetry 99 (units (unknown) date) 05/08/22 17:33 unknown) (unknown) (no (unknown) (unknown) Pulse Oximetry 99 (units (unknown) date) 98 unknown) (unknown) (no (unknown) (unknown) Pulse Rate 127 H (units (unknown) date) 05/08/22 17:33 unknown) (unknown) (no (unknown) (unknown) Pulse Rate 127 H (units (unknown) date) 131 H 130 H unknown) (unknown) (no (unknown) (unknown) RBC (4.5-5.9) (units ( unknown) date) X106/uL unknown) (unknown) (no (unknown) (unknown) RBC 4.27 L (units (unk nown) date) (4.5-5.9) X106/uL unknown) (unknown) (no (unknown) (unknown) RDW (11.6-14.8) % (units (unknown) date) unknown) (unknown) (no (unknown) (unknown) RDW 14.2 (units (unkno wn) date) (11.6-14.8) % unknown) (unknown) (no (unknown) (unknown) RESP: Chest is (units (unknown) date) tender on the unknown) right, patient has about a palm size area of (unknown) (no (unknown) (unknown) ROS Unobtainable: (units (unknown) date) All systems unknown) reviewed + are unremarkable except as noted in HPI (unknown) (no (unknown) (unknown) RUQ pain (units (unkno wn) date) unknown) (unknown) (no (unknown) (unknown) Radiologist's (units ( unknown) date) Impression: unknown) (unknown) (no (unknown) (unknown) Rectal pain (units (un known) date) unknown) (unknown) (no (unknown) (unknown) Referrals: (units (unk nown) date) unknown) (unknown) (no (unknown) (unknown) Related Data (units (u nknown) date) unknown) (unknown) (no (unknown) (unknown) Respiratory Rate (units (unknown) date) 20 05/08/22 17:33 unknown) (unknown) (no (unknown) (unknown) Respiratory Rate (units (unknown) date) 20 14 13 unknown) (unknown) (no (unknown) (unknown) Result diagrams: (units (unknown) date) unknown) (unknown) (no (unknown) (unknown) Review of Systems (units (unknown) date) unknown) (unknown) (no (unknown) (unknown) Sharif Fitch (units (u nknown) date) unknown) (unknown) (no (unknown) (unknown) Rx Instructions: (units (unknown) date) unknown) (unknown) (no (unknown) (unknown) SKIN: Intact, warm (units (unknown) date) and dry, no unknown) crepitus and without decubitus (unknown) (no (unknown) (unknown) Sagittal (units (unkno wn) date) unknown) (unknown) (no (unknown) (unknown) Scores (units (unkno wn) date) unknown) (unknown) (no (unknown) (unknown) Sky Gaffney (units ( unknown) date) M??56??M?? unknown) 5 (unknown) (no (unknown) (unknown) See Rx (units (unkno wn) date) Instructions .ROUTE unknown) .COMPLEX Qty: 90 1RF (unknown) (no (unknown) (unknown) Shoulder MRI (units (u nknown) date) (Signed) unknown) (unknown) (no (unknown) (unknown) Signed By: (units (unk nown) date) unknown) (unknown) (no (unknown) (unknown) Signed (units (unkno wn) date) unknown) (unknown) (no (unknown) (unknown) Sinus tachycardia (units (unknown) date) rate of 130 MT 140 unknown) QRS 80 QTC [address]. No acute ST elevation (unknown) (no (unknown) (unknown) Sinuses:? (units (unkn own) date) Visualized sinuses unknown) and mastoids are clear.? (unknown) (no (unknown) (unknown) Skull and face:? (units (unknown) date) Calvarium and unknown) visualized facial bones are intact, without (unknown) (no (unknown) (unknown) Smoker (units (unkno wn) date) unknown) (unknown) (no (unknown) (unknown) Smoking Status: (units (unknown) date) Current every day unknown) smoker (unknown) (no (unknown) (unknown) Social History (units (unknown) date) (Reviewed 05/08/22 unknown) @ 18:26 by Marylu Arce DO) (unknown) (no (unknown) (unknown) Sodium (137-145) (units (unknown) date) mmol/L unknown) (unknown) (no (unknown) (unknown) Sodium 143 (units (unk nown) date) (137-145) mmol/L unknown) (unknown) (no (unknown) (unknown) Soft tissues:? (units (unknown) date) Prevertebral soft unknown) tissues are normal in thickness.? No (unknown) (no (unknown) (unknown) Source: patient (units (unknown) date) unknown) (unknown) (no (unknown) (unknown) Spleen:? Normal in (units (unknown) date) size.? No splenic unknown) lacerations or perisplenic fluid (unknown) (no (unknown) (unknown) Stated complaint: (units (unknown) date) GI Bleed back pain unknown) (unknown) (no (unknown) (unknown) Status post (units (un known) date) cholecystectomy unknown) (unknown) (no (unknown) (unknown) Status post (units (un known) date) exploratory unknown) laparotomy (unknown) (no (unknown) (unknown) Status post (units (un known) date) rotator cuff repair unknown) (unknown) (no (unknown) (unknown) Stomach and Bowel:? (units (unknown) date) Stomach and small unknown) bowel loops are normal in caliber and wall (unknown) (no (unknown) (unknown) Stop: 05/08/22 (units (unknown) date) 17:49 unknown) (unknown) (no (unknown) (unknown) Stop: 05/08/22 (units (unknown) date) 19:05 unknown) (unknown) (no (unknown) (unknown) Stop: 05/08/22 (units (unknown) date) 20:03 unknown) (unknown) (no (unknown) (unknown) Stop: 05/08/22 (units (unknown) date) 22:10 unknown) (unknown) (no (unknown) (unknown) Substance Use (units ( unknown) date) Type: does not use unknown) (unknown) (no (unknown) (unknown) Surgical History (units (unknown) date) (Reviewed 05/08/22 unknown) @ 18:26 by Marylu Arce DO) (unknown) (no (unknown) (unknown) Kasi Ayon (units ( unknown) date) unknown) (unknown) (no (unknown) (unknown) TAKE 1 CAPSULE BY (units (unknown) date) MOUTH DAILY unknown) (unknown) (no (unknown) (unknown) TECHNIQUE:? (units (un known) date) unknown) (unknown) (no (unknown) (unknown) Temperature 98.4 F (units (unknown) date) 05/08/22 17:33 unknown) (unknown) (no (unknown) (unknown) Temperature 98.4 F (units (unknown) date) unknown) (unknown) (no (unknown) (unknown) There is mild (units ( unknown) date) unknown) (unknown) (no (unknown) (unknown) There is (units (unkno wn) date) unknown) (unknown) (no (unknown) (unknown) This is a (units (unkn own) date) 56-year-old male unknown) who presents with complaint of fall 3 days ago, (unknown) (no (unknown) (unknown) This is a (units (unkn own) date) 56-year-old man unknown) with history of alcohol abuse, patient states he only (unknown) (no (unknown) (unknown) Thoracic Vessels: (units (unknown) date) The aorta and unknown) pulmonary arteries are normal in size.? (unknown) (no (unknown) (unknown) Thyroid:? (units (unkn own) date) Visualized thyroid unknown) demonstrates no discrete nodules. (unknown) (no (unknown) (unknown) Time Seen by (units (u nknown) date) Provider: 05/08/22 unknown) 18:25 (unknown) (no (unknown) (unknown) Total Bilirubin (units (unknown) date) (0.2-1.3) mg/dL unknown) (unknown) (no (unknown) (unknown) Total Bilirubin (units (unknown) date) 0.8 (0.2-1.3) mg/dL unknown) (unknown) (no (unknown) (unknown) Total Protein (units ( unknown) date) (6.3-8.2) g/dL unknown) (unknown) (no (unknown) (unknown) Total Protein 8.2 (units (unknown) date) (6.3-8.2) g/dL unknown) (unknown) (no (unknown) (unknown) Type and Screen (units (unknown) date) Stat unknown) (unknown) (no (unknown) (unknown) U Benzodiazepines (units (unknown) date) Scrn (Negative) unknown) (unknown) (no (unknown) (unknown) U Benzodiazepines (units (unknown) date) Scrn Positive H unknown) (Negative) (unknown) (no (unknown) (unknown) U Marijuana (THC) (units (unknown) date) Screen (Negative) unknown) (unknown) (no (unknown) (unknown) U Marijuana (THC) (units (unknown) date) Screen Negative unknown) (Negative) (unknown) (no (unknown) (unknown) U Methamphetamines (units (unknown) date) Scrn (Negative) unknown) (unknown) (no (unknown) (unknown) U Methamphetamines (units (unknown) date) Scrn Negative unknown) (Negative) (unknown) (no (unknown) (unknown) U Opiates 300ng/mL (units (unknown) date) cut (Negative) unknown) (unknown) (no (unknown) (unknown) U Opiates 300ng/mL (units (unknown) date) cut Negative unknown) (Negative) (unknown) (no (unknown) (unknown) U Tricyclic (units (un known) date) Antidepress unknown) (Negative) (unknown) (no (unknown) (unknown) U Tricyclic (units (un known) date) Antidepress unknown) Negative (Negative) (unknown) (no (unknown) (unknown) Ur Amphetamines (units (unknown) date) Screen (Negative) unknown) (unknown) (no (unknown) (unknown) Ur Amphetamines (units (unknown) date) Screen Negative unknown) (Negative) (unknown) (no (unknown) (unknown) Ur Barbiturates (units (unknown) date) Screen (Negative) unknown) (unknown) (no (unknown) (unknown) Ur Barbiturates (units (unknown) date) Screen Negative unknown) (Negative) (unknown) (no (unknown) (unknown) Ur Culture (units (unk nown) date) Indicated? Cult not unknown) indicated (unknown) (no (unknown) (unknown) Ur Culture (units (unk nown) date) Indicated? unknown) (unknown) (no (unknown) (unknown) Ur MDMA Scrn (units (u nknown) date) (Ecstasy) unknown) (Negative) (unknown) (no (unknown) (unknown) Ur MDMA Scrn (units (u nknown) date) (Ecstasy) Negative unknown) (Negative) (unknown) (no (unknown) (unknown) Ur Oxycodone (units (u nknown) date) Screen (Negative) unknown) (unknown) (no (unknown) (unknown) Ur Oxycodone (units (u nknown) date) Screen Positive H unknown) (Negative) (unknown) (no (unknown) (unknown) Ur Phencyclidine (units (unknown) date) Scrn (Negative) unknown) (unknown) (no (unknown) (unknown) Ur Phencyclidine (units (unknown) date) Scrn Negative unknown) (Negative) (unknown) (no (unknown) (unknown) Ur Transition (units ( unknown) date) Epith Cell unknown) (0-5/HPF) (unknown) (no (unknown) (unknown) Ur Transition (units ( unknown) date) Epith Cell 0-1/hpf unknown) (0-5/HPF) (unknown) (no (unknown) (unknown) Urine Bacteria (units (unknown) date) (None) unknown) (unknown) (no (unknown) (unknown) Urine Bacteria (units (unknown) date) None seen (None) unknown) (unknown) (no (unknown) (unknown) Urine Cocaine (units ( unknown) date) Screen (Negative) unknown) (unknown) (no (unknown) (unknown) Urine Cocaine (units ( unknown) date) Screen Negative unknown) (Negative) (unknown) (no (unknown) (unknown) Urine Dip (units (unkn own) date) unknown) (unknown) (no (unknown) (unknown) Urine Drug Screen, (units (unknown) date) Rapid Stat unknown) (unknown) (no (unknown) (unknown) Urine Methadone (units (unknown) date) Screen (Negative) unknown) (unknown) (no (unknown) (unknown) Urine Methadone (units (unknown) date) Screen Negative unknown) (Negative) (unknown) (no (unknown) (unknown) Urine Microscopic (units (unknown) date) Stat unknown) (unknown) (no (unknown) (unknown) Urine RBC (units (unkn own) date) (0-5/HPF) unknown) (unknown) (no (unknown) (unknown) Urine RBC 0-1/hpf (units (unknown) date) (0-5/HPF) unknown) (unknown) (no (unknown) (unknown) Urine Specific (units (unknown) date) [place] 1.030 unknown) (unknown) (no (unknown) (unknown) Urine WBC (units (unkn own) date) (0-5/HPF) unknown) (unknown) (no (unknown) (unknown) Urine WBC None (units (unknown) date) seen (0-5/HPF) unknown) (unknown) (no (unknown) (unknown) Ventral Wall: ? No (units (unknown) date) hernia.? unknown) (unknown) (no (unknown) (unknown) Vessels:? Aorta (units (unknown) date) and inferior vena unknown) cava are normal in size.? (unknown) (no (unknown) (unknown) Vital Signs - 8 hr (units (unknown) date) unknown) (unknown) (no (unknown) (unknown) Vital Signs (units (un known) date) unknown) (unknown) (no (unknown) (unknown) Vital signs: (units (u nknown) date) unknown) (unknown) (no (unknown) (unknown) WBC (4.5-11.0) (units (unknown) date) X103/uL unknown) (unknown) (no (unknown) (unknown) WBC 22.1 H (units (unk nown) date) (4.5-11.0) X103/uL unknown) (unknown) (no (unknown) (unknown) Deisi Pan (units (unkn own) date) unknown) (unknown) (no (unknown) (unknown) [Embedded Image (units (unknown) date) Not Available] unknown) (unknown) (no (unknown) (unknown) abdomen pelvis (units (unknown) date) trauma protocol, unknown) fluids, phenobarb for alcohol withdrawal, (unknown) (no (unknown) (unknown) about 3 days ago (units (unknown) date) he is unsure if he unknown) hit his head but states he hit his right (unknown) (no (unknown) (unknown) acquired (units (unkno wn) date) unknown) (unknown) (no (unknown) (unknown) acquired. (units (unkn own) date) unknown) (unknown) (no (unknown) (unknown) airway is normal (units (unknown) date) and with normal unknown) occlusion, No bony tenderness (unknown) (no (unknown) (unknown) alcohol intake (units (unknown) date) frequency: 3 or unknown) more drinks per day (unknown) (no (unknown) (unknown) alcohol intake: (units (unknown) date) current unknown) (unknown) (no (unknown) (unknown) alcohol (units (unkno wn) date) withdrawals. unknown) Patient may have sepsis versus reactive changed alcohol (unknown) (no (unknown) (unknown) allergic to (units (un known) date) penicillin. He unknown) states quit smoking 4 days ago, he states he (unknown) (no (unknown) (unknown) and CT C-spine (units (unknown) date) shows no acute unknown) change. CT chest abdomen pelvis shows no (unknown) (no (unknown) (unknown) and below (units (unkn own) date) unknown) (unknown) (no (unknown) (unknown) and coronal (units (un known) date) reformats were then unknown) constructed.? For radiation dose reduction, the (unknown) (no (unknown) (unknown) arthropathy.? (units ( unknown) date) Visualized superior unknown) ribs are intact.? (unknown) (no (unknown) (unknown) as (units (unkno wn) date) unknown) (unknown) (no (unknown) (unknown) at C5-C6 with (units ( unknown) date) endplate sclerosis unknown) and osteophytosis.? There is mild multilevel (unknown) (no (unknown) (unknown) automated (units (unkn own) date) unknown) (unknown) (no (unknown) (unknown) benzodiazepines (units (unknown) date) and oxycodone. unknown) Patient need CT of the head C-spine chest (unknown) (no (unknown) (unknown) celecoxib 200 mg (units (unknown) date) capsule See Rx unknown) Instructions .Route 03/23/21 (unknown) (no (unknown) (unknown) celecoxib 200 mg (units (unknown) date) capsule unknown) (unknown) (no (unknown) (unknown) cerebral volume (units (unknown) date) loss, with unknown) resultant ventricular and sulcal prominence as well (unknown) (no (unknown) (unknown) chest and back. He (units (unknown) date) states he developed unknown) right chest pain, he states he is had a (unknown) (no (unknown) (unknown) cholecystectomy, (units (unknown) date) injury to repair unknown) with complications requiring colostomy and (unknown) (no (unknown) (unknown) collections. ? (units (unknown) date) unknown) (unknown) (no (unknown) (unknown) compatible with an (units (unknown) date) infectious or unknown) inflammatory colitis.? (unknown) (no (unknown) (unknown) consistent with (units (unknown) date) scarring in the unknown) lung apices. (unknown) (no (unknown) (unknown) consolidation.? (units (unknown) date) The unknown) (unknown) (no (unknown) (unknown) cyclobenzaprine 10 (units (unknown) date) mg tablet 10 mg PO unknown) TID PRN Back Pain #90 tabs 11/22/18 (unknown) (no (unknown) (unknown) cyclobenzaprine 10 (units (unknown) date) mg tablet unknown) (unknown) (no (unknown) (unknown) demonstrate no (units (unknown) date) unknown) (unknown) (no (unknown) (unknown) denies other (units (u nknown) date) surgeries described unknown) above. He denies any daily medications. He is (unknown) (no (unknown) (unknown) depression noted. (units (unknown) date) unknown) (unknown) (no (unknown) (unknown) diffuse (units (unkno wn) date) unknown) (unknown) (no (unknown) (unknown) does not show (units ( unknown) date) signs fraction, unknown) alcohol is 190. Patient is positive for (unknown) (no (unknown) (unknown) ecchymosis on the (units (unknown) date) right lateral unknown) chest. No hematoma sort of patchy. And has (unknown) (no (unknown) (unknown) enhancement (units (un known) date) unknown) (unknown) (no (unknown) (unknown) esophagitis and (units (unknown) date) mild wall unknown) thickening of the colon consistent with infectious or (unknown) (no (unknown) (unknown) esophagitis. (units (u nknown) date) unknown) (unknown) (no (unknown) (unknown) exposure control, (units (unknown) date) adjustment of mA unknown) and/or kV according to patient size.? (unknown) (no (unknown) (unknown) facet joint (units (un known) date) unknown) (unknown) (no (unknown) (unknown) feel like. He (units ( unknown) date) denies loss of unknown) consciousness. He denies shortness of breath. (unknown) (no (unknown) (unknown) feels very shaky (units (unknown) date) like he is going unknown) through DTs. He is had a cough which he (unknown) (no (unknown) (unknown) following (units (unkn own) date) unknown) (unknown) (no (unknown) (unknown) from the (units (unkno wn) date) unknown) (unknown) (no (unknown) (unknown) he noticed he is (units (unknown) date) had some brown unknown) discoloration when he vomits. He denies black (unknown) (no (unknown) (unknown) headache since (units (unknown) date) then. He states if unknown) he had migraines he feels like this would (unknown) (no (unknown) (unknown) hematomas.? No (units (unknown) date) apical unknown) pneumothoraces.? (unknown) (no (unknown) (unknown) hematomas.? (units (un known) date) unknown) (unknown) (no (unknown) (unknown) hemotypanum, Nares (units (unknown) date) are clear, no unknown) septal hematoma, no dental or oral injury, (unknown) (no (unknown) (unknown) hernia. (units (unkno wn) date) unknown) (unknown) (no (unknown) (unknown) household members: (units (unknown) date) spouse unknown) (unknown) (no (unknown) (unknown) hydrocodone 5 (units ( unknown) date) mg-acetaminophen unknown) 325 1 tab PO Q6H PRN 03/23/21 01/02/22 (unknown) (no (unknown) (unknown) hydrocodone-acetam (units (unknown) date) inophen 5-325 mg unknown) tablet (unknown) (no (unknown) (unknown) hypoattenuation of (units (unknown) date) the liver unknown) consistent with fatty infiltration. (unknown) (no (unknown) (unknown) in the (units (unkno wn) date) unknown) (unknown) (no (unknown) (unknown) infectious or (units ( unknown) date) unknown) (unknown) (no (unknown) (unknown) inflammatory (units (u nknown) date) colitis. unknown) (unknown) (no (unknown) (unknown) infuse over 3 hr (units (unknown) date) (2109.21 ml) IV NOW unknown) ONE (unknown) (no (unknown) (unknown) injury, altered (units (unknown) date) mental status, unknown) neuro deficit, positive for recent EtOH. (unknown) (no (unknown) (unknown) intracranial (units (u nknown) date) internal carotid unknown) artery atherosclerosis.? (unknown) (no (unknown) (unknown) kidneys (units (unkno wn) date) unknown) (unknown) (no (unknown) (unknown) lesions.? (units (unkn own) date) unknown) (unknown) (no (unknown) (unknown) loss.? (units (unkno wn) date) unknown) (unknown) (no (unknown) (unknown) lung apices to the (units (unknown) date) symphysis.? 2.5 mm unknown) thick coronal and sagittal reformats were (unknown) (no (unknown) (unknown) marital status: (units (unknown) date) unknown) (unknown) (no (unknown) (unknown) mediastinal (units (un known) date) unknown) (unknown) (no (unknown) (unknown) mg tablet (units (unkn own) date) unknown) (unknown) (no (unknown) (unknown) morning. He denies (units (unknown) date) any illicit or IV unknown) drugs. Patient states with alcohol (unknown) (no (unknown) (unknown) of 10 consistent (units (unknown) date) with his elevated unknown) lactate. AST ALT bilirubin normal. Urine (unknown) (no (unknown) (unknown) omeprazole 20 mg (units (unknown) date) capsule,delayed 20 unknown) mg PO DAILY 09/22/20 01/02/22 (unknown) (no (unknown) (unknown) omeprazole 20 mg (units (unknown) date) capsule,delayed unknown) release(DR/EC) (unknown) (no (unknown) (unknown) or bloody stools. (units (unknown) date) He is had diarrhea, unknown) he denies fevers or chills. He states he (unknown) (no (unknown) (unknown) or rales (units (unkno wn) date) unknown) (unknown) (no (unknown) (unknown) other medication (units (unknown) date) is Seroquel for unknown) sleep. 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 (unknown) (unknown) paravertebral (units ( unknown) date) unknown) (unknown) (no (unknown) (unknown) patient does have (units (unknown) date) generalized tremor unknown) (unknown) (no (unknown) (unknown) patient (units (unkno wn) date) unknown) (unknown) (no (unknown) (unknown) pelvic rock is (units (unknown) date) negative unknown) (unknown) (no (unknown) (unknown) periventricular and (units (unknown) date) deep white matter unknown) hypodensities consistent with mild chronic (unknown) (no (unknown) (unknown) persistent (units (unk nown) date) headache, bruising unknown) on his right chest and chest pain, nausea and (unknown) (no (unknown) (unknown) present (units (unkno wn) date) unknown) (unknown) (no (unknown) (unknown) prominence of the (units (unknown) date) extra-axial spaces unknown) along the frontal lobes.? (unknown) (no (unknown) (unknown) pulses in all four (units (unknown) date) extremities unknown) (unknown) (no (unknown) (unknown) quetiapine 100 mg (units (unknown) date) tablet 100 mg PO unknown) BEDTIME 01/02/22 01/02/22 (unknown) (no (unknown) (unknown) quetiapine 100 mg (units (unknown) date) tablet unknown) (unknown) (no (unknown) (unknown) release (units (unkno wn) date) unknown) (unknown) (no (unknown) (unknown) sigmoid colon.? (units (unknown) date) There is diffuse unknown) mild colonic wall thickening and mucosal (unknown) (no (unknown) (unknown) size.? (units (unkno wn) date) unknown) (unknown) (no (unknown) (unknown) small (units (unkno wn) date) unknown) (unknown) (no (unknown) (unknown) states has been (units (unknown) date) nonproductive no unknown) bright red blood or sputum production. Patient (unknown) (no (unknown) (unknown) still pending. (units (unknown) date) Renal function unknown) electrolytes are relatively normal except for CO2 (unknown) (no (unknown) (unknown) subcortical, (units (u nknown) date) unknown) (unknown) (no (unknown) (unknown) substance use (units ( unknown) date) type: does not use unknown) (unknown) (no (unknown) (unknown) suspicious focal (units (unknown) date) lesions. unknown) (unknown) (no (unknown) (unknown) suspicious (units (unk nown) date) unknown) (unknown) (no (unknown) (unknown) symmetric movement, (units (unknown) date) no ecchymosis, unknown) breath sounds are normal no crackles, wheezes (unknown) (no (unknown) (unknown) temperature, (units (u nknown) date) normal range of unknown) motion of extremities with normal tendon exam, 2 (unknown) (no (unknown) (unknown) then reanastomosis (units (unknown) date) after 8 months. unknown) Patient presents today after having a fall (unknown) (no (unknown) (unknown) thickening (units (unk nown) date) unknown) (unknown) (no (unknown) (unknown) thickness.? The (units (unknown) date) appendix is normal unknown) in appearance.? Surgical sutures are present (unknown) (no (unknown) (unknown) through the lungs.? (units (unknown) date) Optional 10-minute unknown) delayed imaging may be performed from the (unknown) (no (unknown) (unknown) to the bladder.? (units (unknown) date) For radiation dose unknown) reduction, the following was used:? (unknown) (no (unknown) (unknown) to the (units (unkno wn) date) unknown) (unknown) (no (unknown) (unknown) trachea and (units (un known) date) central airways are unknown) patent. (unknown) (no (unknown) (unknown) traumatic (units (unkn own) date) abnormality mild unknown) esophageal wall thickening with nonspecific (unknown) (no (unknown) (unknown) typically drinks (units (unknown) date) 2-3 beers that are unknown) 24 oz daily, his last drink was earlier this (unknown) (no (unknown) (unknown) vertex, with (units (u nknown) date) coronal and unknown) sagittal reformats.? For radiation dose reduction, the (unknown) (no (unknown) (unknown) vessel ischemic (units (unknown) date) changes.? The unknown) cordon-white matter junction appears preserved.? (unknown) (no (unknown) (unknown) vomiting for the (units (unknown) date) past 2 days unknown) possible brown emesis or coffee-ground. And (unknown) (no (unknown) (unknown) was used:? (units (unk nown) date) automated exposure unknown) control, adjustment of mA and/or kV according to (unknown) (no (unknown) (unknown) white count at 22, (units (unknown) date) platelets of 306, unknown) patient has a lactate of 7, procalcitonin (unknown) (no (unknown) (unknown) with slight (units (un known) date) reversal the unknown) cervical lordosis.? Moderate degenerative disc disease (unknown) (no (unknown) (unknown) withdrawal he has (units (unknown) date) not had seizures or unknown) hallucinations in the past. (unknown) (no (unknown) (unknown) withdrawal he is (units (unknown) date) tachycardic, has unknown) tremors, he is afebrile but has not elevated Result panel 257 (unknown) (no date) (unknown) (unknown) 9.75 mmol/l (unkn own) (unknown) (no date) (unknown) (unknown) 9.75 mmol/l (unkn own) Result panel 258 (unknown) (no date) (unknown) (unknown) 2.2 mg/dl (unkn own) (unknown) (no date) (unknown) (unknown) 4.2 mg/dl (unkn own) Result panel 259 (unknown) (no date) (unknown) (unknown) 4.3 mmol/l (unkn own) (unknown) (no date) (unknown) (unknown) 4.3 mmol/l (unkn own) Result panel 260 (unknown) (no date) (unknown) (unknown) 0.57 uiu/ml (unkn own) Result panel 261 (unknown) (no date) (unknown) (unknown) -12.0 mmol/l (unkn own) (unknown) (no date) (unknown) (unknown) 14 mmol/l (unkn own) (unknown) (no date) (unknown) (unknown) 15 mmol/l (unkn own) (unknown) (no date) (unknown) (unknown) 26.8 mmhg (unkn own) (unknown) (no date) (unknown) (unknown) 36 mmhg (unkn own) (unknown) (no date) (unknown) (unknown) 67 % (unkn own) (unknown) (no date) (unknown) (unknown) 7.33 (units unknown) (unknown) (unknown) (no date) (unknown) (unknown) 7.33 (units unknown) (unknown) Result panel 262 (unknown) (no date) (unknown) (unknown) 0 /ul (unkn own) (unknown) (no date) (unknown) (unknown) 0 /ul (unkn own) (unknown) (no date) (unknown) (unknown) 0.0 % (unkn own) (unknown) (no date) (unknown) (unknown) 0.1 % (unkn own) (unknown) (no date) (unknown) (unknown) 11.2 x10 3/ul (unkn own) (unknown) (no date) (unknown) (unknown) 11.6 g/dl (unkn own) (unknown) (no date) (unknown) (unknown) 13.8 % (unkn own) (unknown) (no date) (unknown) (unknown) 231 x10 3/ul (unkn own) (unknown) (no date) (unknown) (unknown) 3.65 x10 6/ul (unkn own) (unknown) (no date) (unknown) (unknown) 31.8 pg (unkn own) (unknown) (no date) (unknown) (unknown) 33.0 % (unkn own) (unknown) (no date) (unknown) (unknown) 35.2 % (unkn own) (unknown) (no date) (unknown) (unknown) 5.5 % (unkn own) (unknown) (no date) (unknown) (unknown) 6.7 % (unkn own) (unknown) (no date) (unknown) (unknown) 600 /ul (unkn own) (unknown) (no date) (unknown) (unknown) 700 /ul (unkn own) (unknown) (no date) (unknown) (unknown) 87.7 % (unkn own) (unknown) (no date) (unknown) (unknown) 96.4 fl (unkn own) (unknown) (no date) (unknown) (unknown) 9800 /ul (unkn own) Result panel 263 (unknown) (no (unknown) (unknown) (no value) (units (unk nown) date) unknown) (unknown) (no (unknown) (unknown) (past 8 hours): (units (unknown) date) unknown) (unknown) (no (unknown) (unknown) -CT head showed no (units (unknown) date) acute process unknown) (unknown) (no (unknown) (unknown) -CT scan showed (units (unknown) date) abnormalities unknown) (unknown) (no (unknown) (unknown) -IV antibiotics as (units (unknown) date) above unknown) (unknown) (no (unknown) (unknown) -MVI, folate (units (u nknown) date) unknown) (unknown) (no (unknown) (unknown) -PPI as above (units ( unknown) date) unknown) (unknown) (no (unknown) (unknown) -SIRS positive (units (unknown) date) with tachycardia, unknown) tachypnea and elevated white count (unknown) (no (unknown) (unknown) -SW eval, patient (units (unknown) date) interested in detox unknown) (unknown) (no (unknown) (unknown) -blood cultures (units (unknown) date) pending unknown) (unknown) (no (unknown) (unknown) -chest xray and UA (units (unknown) date) with no evidence of unknown) acute infection (unknown) (no (unknown) (unknown) -clear liquid diet (units (unknown) date) for now, advance as unknown) able (unknown) (no (unknown) (unknown) -colitis is (units (un known) date) questionably unknown) infection (unknown) (no (unknown) (unknown) -d5ns for fluids (units (unknown) date) due to likely unknown) alcoholic ketoacidosis (unknown) (no (unknown) (unknown) -did get 390mg of (units (unknown) date) phenobarb in ED unknown) (unknown) (no (unknown) (unknown) -for now continue (units (unknown) date) IV fluids unknown) (unknown) (no (unknown) (unknown) -for now continue (units (unknown) date) PPI BID, but if no unknown) evidence of bleeding can likely stop in 24 (unknown) (no (unknown) (unknown) -hgb normal on (units (unknown) date) arrival unknown) (unknown) (no (unknown) (unknown) -if headache not (units (unknown) date) improved with unknown) treatment of withdrawal will need further workup (unknown) (no (unknown) (unknown) -improving with (units (unknown) date) fluids, unknown) antibiotics, and withdrawal meds (unknown) (no (unknown) (unknown) -initial bicarb on (units (unknown) date) bmp is 10 unknown) (unknown) (no (unknown) (unknown) -initial lactate (units (unknown) date) of 7, improved to unknown) 4.3 with fluids, continue to trend (unknown) (no (unknown) (unknown) -lactate and (units (u nknown) date) ketones elevated unknown) (unknown) (no (unknown) (unknown) -levaquin/flagyl (units (unknown) date) for empiric unknown) antibiotics (unknown) (no (unknown) (unknown) -no diarrhea at (units (unknown) date) this time unknown) (unknown) (no (unknown) (unknown) -no indication for (units (unknown) date) EGD at the moment unknown) (unknown) (no (unknown) (unknown) -no vomiting in ED (units (unknown) date) unknown) (unknown) (no (unknown) (unknown) -ordered for CIWA (units (unknown) date) protocol with unknown) ativan (unknown) (no (unknown) (unknown) -ordered for high (units (unknown) date) dose thiamine unknown) (unknown) (no (unknown) (unknown) -ordered high dose (units (unknown) date) thiamine, plan for unknown) 500mg TID for 2 days (unknown) (no (unknown) (unknown) -possible colitis (units (unknown) date) and esophagitis unknown) noted on CT scan (unknown) (no (unknown) (unknown) -procal initially (units (unknown) date) 0.31 unknown) (unknown) (no (unknown) (unknown) -recheck (units (unkno wn) date) hemoglobin tonight unknown) (unknown) (no (unknown) (unknown) -suspect (units (unkno wn) date) esophagitis may be unknown) secondary to vomiting (unknown) (no (unknown) (unknown) -suspect possible (units (unknown) date) alcoholic unknown) ketoacidosis (unknown) (no (unknown) (unknown) -suspect secondary (units (unknown) date) to alcohol abuse unknown) (unknown) (no (unknown) (unknown) -suspect secondary (units (unknown) date) to withdrawal vs unknown) infection (unknown) (no (unknown) (unknown) -suspect secondary (units (unknown) date) to withdrawal unknown) (unknown) (no (unknown) (unknown) -treat alcohol (units (unknown) date) abuse as above unknown) (unknown) (no (unknown) (unknown) -vbg showed pH of (units (unknown) date) 7.33, nearly normal unknown) (unknown) (no (unknown) (unknown) -zofran PRN for (units (unknown) date) symptoms unknown) (unknown) (no (unknown) (unknown) 05/08/22 05/08/22 (units (unknown) date) 05/08/22 unknown) (unknown) (no (unknown) (unknown) 05/08/22 05/08/22 (units (unknown) date) unknown) (unknown) (no (unknown) (unknown) 05/08/22 17:30 (units (unknown) date) unknown) (unknown) (no (unknown) (unknown) 05/08/22 2338 (units ( unknown) date) unknown) (unknown) (no (unknown) (unknown) 05/08/22 (units (unkno wn) date) unknown) (unknown) (no (unknown) (unknown) [id number] (units (unkno wn) date) unknown) (unknown) (no (unknown) (unknown) 1. Alcohol (units (unk nown) date) withdrawal and unknown) alcohol abuse (unknown) (no (unknown) (unknown) 14 systems (units (unk nown) date) reviewed and unknown) negative aside from what is noted in HPI (unknown) (no (unknown) (unknown) 17:30 17:30 17:30 (units (unknown) date) unknown) (unknown) (no (unknown) (unknown) 17:33 05/08/22 (units (unknown) date) unknown) (unknown) (no (unknown) (unknown) 17:49 05/08/22 (units (unknown) date) unknown) (unknown) (no (unknown) (unknown) 17:55 18:00 18:00 (units (unknown) date) unknown) (unknown) (no (unknown) (unknown) 18:00 (units (unkno wn) date) unknown) (unknown) (no (unknown) (unknown) 18:30 05/08/22 (units (unknown) date) unknown) (unknown) (no (unknown) (unknown) 19:00 05/08/22 (units (unknown) date) unknown) (unknown) (no (unknown) (unknown) 19:00 (units (unkno wn) date) unknown) (unknown) (no (unknown) (unknown) 19:30 05/08/22 (units (unknown) date) unknown) (unknown) (no (unknown) (unknown) 19:30 (units (unkno wn) date) unknown) (unknown) (no (unknown) (unknown) 2. Possible severe (units (unknown) date) sepsis unknown) (unknown) (no (unknown) (unknown) 20:00 05/08/22 (units (unknown) date) unknown) (unknown) (no (unknown) (unknown) 20:30 05/08/22 (units (unknown) date) unknown) (unknown) (no (unknown) (unknown) 20:30 (units (unkno wn) date) unknown) (unknown) (no (unknown) (unknown) 21:00 05/08/22 (units (unknown) date) unknown) (unknown) (no (unknown) (unknown) 21:00 (units (unkno wn) date) unknown) (unknown) (no (unknown) (unknown) 21:25 22:49 (units (un known) date) unknown) (unknown) (no (unknown) (unknown) 21:30 05/08/22 (units (unknown) date) unknown) (unknown) (no (unknown) (unknown) 22:00 05/08/22 (units (unknown) date) unknown) (unknown) (no (unknown) (unknown) 22:00 (units (unkno wn) date) unknown) (unknown) (no (unknown) (unknown) 22:30 05/08/22 (units (unknown) date) unknown) (unknown) (no (unknown) (unknown) 22:32 (units (unkno wn) date) unknown) (unknown) (no (unknown) (unknown) 3. Vomiting, (units (u nknown) date) question bloody unknown) (unknown) (no (unknown) (unknown) 4 24 oz beers (units ( unknown) date) daily. His last unknown) drink was early this morning. He notes he had a (unknown) (no (unknown) (unknown) 4. Acidosis (units (un known) date) unknown) (unknown) (no (unknown) (unknown) 6. Possible (units (un known) date) esophagitis, unknown) colitis (unknown) (no (unknown) (unknown) 7. Sinus (units (unkno wn) date) tachycardia unknown) (unknown) (no (unknown) (unknown) 8. Headache (units (un known) date) unknown) (unknown) (no (unknown) (unknown) ABD: soft, (units (unk nown) date) nontender, unknown) nondisended, no organomegaly (unknown) (no (unknown) (unknown) ALT 36 (units (unkno wn) date) unknown) (unknown) (no (unknown) (unknown) ALT (units (unkno wn) date) unknown) (unknown) (no (unknown) (unknown) APTT 28 (units (unkno wn) date) unknown) (unknown) (no (unknown) (unknown) APTT (units (unkno wn) date) unknown) (unknown) (no (unknown) (unknown) AST 87 H (units (unkno wn) date) unknown) (unknown) (no (unknown) (unknown) AST 87, ALT 36. (units (unknown) date) Lactate 7.0. Procal unknown) 0.31. UA negative. Urine drug screen (unknown) (no (unknown) (unknown) AST (units (unkno wn) date) unknown) (unknown) (no (unknown) (unknown) Age/Sex: 56 / M (units (unknown) date) unknown) (unknown) (no (unknown) (unknown) Albumin 4.7 (units (un known) date) unknown) (unknown) (no (unknown) (unknown) Albumin (units (unkno wn) date) unknown) (unknown) (no (unknown) (unknown) Albumin/Globulin (units (unknown) date) Ratio 1.3 unknown) (unknown) (no (unknown) (unknown) Albumin/Globulin (units (unknown) date) Ratio unknown) (unknown) (no (unknown) (unknown) Alcoholism (units (unk nown) date) unknown) (unknown) (no (unknown) (unknown) Alkaline (units (unkno wn) date) Phosphatase 130 H unknown) (unknown) (no (unknown) (unknown) Alkaline (units (unkno wn) date) Phosphatase unknown) (unknown) (no (unknown) (unknown) Allergies (units (unkn own) date) unknown) (unknown) (no (unknown) (unknown) Allergy/AdvReac (units (unknown) date) Type Severity unknown) Reaction Status Date / Time (unknown) (no (unknown) (unknown) Amorphous Sediment (units (unknown) date) 1 unknown) (unknown) (no (unknown) (unknown) Amorphous Sediment (units (unknown) date) unknown) (unknown) (no (unknown) (unknown) Antibody Screen (units (unknown) date) Negative unknown) (unknown) (no (unknown) (unknown) Antibody Screen (units (unknown) date) unknown) (unknown) (no (unknown) (unknown) Assessment + Plan (units (unknown) date) narrative: unknown) (unknown) (no (unknown) (unknown) Assessment + Plan (units (unknown) date) unknown) (unknown) (no (unknown) (unknown) BUN 12 (units (unkno wn) date) unknown) (unknown) (no (unknown) (unknown) BUN (units (unkno wn) date) unknown) (unknown) (no (unknown) (unknown) BUN/Creatinine (units (unknown) date) Ratio 10.8 unknown) (unknown) (no (unknown) (unknown) BUN/Creatinine (units (unknown) date) Ratio unknown) (unknown) (no (unknown) (unknown) Baso # (Auto) 0 (units (unknown) date) unknown) (unknown) (no (unknown) (unknown) Baso # (Auto) (units ( unknown) date) unknown) (unknown) (no (unknown) (unknown) Baso % (Auto) 0.1 (units (unknown) date) unknown) (unknown) (no (unknown) (unknown) Baso % (Auto) (units ( unknown) date) unknown) (unknown) (no (unknown) (unknown) Been Physically (units (unknown) date) Hurt or No unknown) (unknown) (no (unknown) (unknown) Blood Pressure (units (unknown) date) 132/85 unknown) (unknown) (no (unknown) (unknown) Blood Pressure (units (unknown) date) 133/77 145/103 H unknown) (unknown) (no (unknown) (unknown) Blood Pressure (units (unknown) date) 141/65 H 163/85 H unknown) (unknown) (no (unknown) (unknown) Blood Pressure (units (unknown) date) 145/81 H unknown) (unknown) (no (unknown) (unknown) Blood Pressure (units (unknown) date) 145/95 H unknown) (unknown) (no (unknown) (unknown) Blood Pressure (units (unknown) date) 146/81 H 143/82 H unknown) (unknown) (no (unknown) (unknown) Blood Pressure (units (unknown) date) 149/72 H unknown) (unknown) (no (unknown) (unknown) Blood Pressure (units (unknown) date) unknown) (unknown) (no (unknown) (unknown) Blood Type O (units (u nknown) date) Negative unknown) (unknown) (no (unknown) (unknown) Blood Type (units (unk nown) date) unknown) (unknown) (no (unknown) (unknown) CODE: Full (units (unk nown) date) unknown) (unknown) (no (unknown) (unknown) CV: tachycardic, (units (unknown) date) no murmurs unknown) (unknown) (no (unknown) (unknown) Calcium 8.4 (units (un known) date) unknown) (unknown) (no (unknown) (unknown) Calcium (units (unkno wn) date) unknown) (unknown) (no (unknown) (unknown) Carbon Dioxide 10 (units (unknown) date) L unknown) (unknown) (no (unknown) (unknown) Carbon Dioxide (units (unknown) date) unknown) (unknown) (no (unknown) (unknown) Chief complaint: (units (unknown) date) GI Bleed back pain unknown) (unknown) (no (unknown) (unknown) Chloride 101 (units (u nknown) date) unknown) (unknown) (no (unknown) (unknown) Chloride (units (unkno wn) date) unknown) (unknown) (no (unknown) (unknown) Chronic back pain (units (unknown) date) unknown) (unknown) (no (unknown) (unknown) Creatinine 1.11 (units (unknown) date) unknown) (unknown) (no (unknown) (unknown) Creatinine (units (unk nown) date) unknown) (unknown) (no (unknown) (unknown) Critical Care (units ( unknown) date) time: unknown) (unknown) (no (unknown) (unknown) : 1965 (units (unknown) date) Acct:[id number] unknown) (unknown) (no (unknown) (unknown) Date Patient Seen: (units (unknown) date) 05/08/22 unknown) (unknown) (no (unknown) (unknown) Date of Service: (units (unknown) date) 05/08/22 unknown) (unknown) (no (unknown) (unknown) Degenerative disc (units (unknown) date) disease unknown) (unknown) (no (unknown) (unknown) EXT: warm and well (units (unknown) date) perfused with no unknown) edema (unknown) (no (unknown) (unknown) Environment (units (un known) date) unknown) (unknown) (no (unknown) (unknown) Eos # (Auto) 0 (units (unknown) date) unknown) (unknown) (no (unknown) (unknown) Eos # (Auto) (units (u nknown) date) unknown) (unknown) (no (unknown) (unknown) Eos % (Auto) 0.0 L (units (unknown) date) unknown) (unknown) (no (unknown) (unknown) Eos % (Auto) (units (u nknown) date) unknown) (unknown) (no (unknown) (unknown) Estimated GFR > 60 (units (unknown) date) unknown) (unknown) (no (unknown) (unknown) Estimated GFR (units ( unknown) date) unknown) (unknown) (no (unknown) (unknown) Ethyl Alcohol 190 (units (unknown) date) H unknown) (unknown) (no (unknown) (unknown) Ethyl Alcohol (units ( unknown) date) unknown) (unknown) (no (unknown) (unknown) Exam Narrative: (units (unknown) date) unknown) (unknown) (no (unknown) (unknown) Exam (units (unkno wn) date) unknown) (unknown) (no (unknown) (unknown) Facet arthropathy, (units (unknown) date) lumbar unknown) (unknown) (no (unknown) (unknown) Family + Social (units (unknown) date) History unknown) (unknown) (no (unknown) (unknown) Family History (units (unknown) date) (Reviewed 05/08/22 unknown) @ 23:30 by Anish Peoples MD) (unknown) (no (unknown) (unknown) Family history: he (units (unknown) date) denies significant unknown) alcohol abuse, cardiac history in family (unknown) (no (unknown) (unknown) Feels Safe in (units ( unknown) date) Current Yes unknown) (unknown) (no (unknown) (unknown) Footdrop (units (unkno wn) date) unknown) (unknown) (no (unknown) (unknown) GEN: in distress (units (unknown) date) from withdrawal unknown) (unknown) (no (unknown) (unknown) Gait instability (units (unknown) date) unknown) (unknown) (no (unknown) (unknown) Globulin 3.5 (units (u nknown) date) unknown) (unknown) (no (unknown) (unknown) Globulin (units (unkno wn) date) unknown) (unknown) (no (unknown) (unknown) Glucose 115 H (units ( unknown) date) unknown) (unknown) (no (unknown) (unknown) Glucose (units (unkno wn) date) unknown) (unknown) (no (unknown) (unknown) HEENT: moist (units (u nknown) date) mucous membranes, unknown) PERRL (unknown) (no (unknown) (unknown) Hct 42.0 (units (unkno wn) date) unknown) (unknown) (no (unknown) (unknown) Hct (units (unkno wn) date) unknown) (unknown) (no (unknown) (unknown) Hepatic steatosis (units (unknown) date) unknown) (unknown) (no (unknown) (unknown) Herniated nucleus (units (unknown) date) pulposus, L4-5 unknown) (unknown) (no (unknown) (unknown) Hgb 13.5 (units (unkno wn) date) unknown) (unknown) (no (unknown) (unknown) Hgb (units (unkno wn) date) unknown) (unknown) (no (unknown) (unknown) History + Physical (units (unknown) date) Report unknown) (unknown) (no (unknown) (unknown) History of Present (units (unknown) date) Illness unknown) (unknown) (no (unknown) (unknown) History of (units (unk nown) date) colostomy reversal unknown) (unknown) (no (unknown) (unknown) Home Medications (units (unknown) date) and Allergies unknown) (unknown) (no (unknown) (unknown) Home Medications (units (unknown) date) unknown) (unknown) (no (unknown) (unknown) Hyaline Casts (units ( unknown) date) 0-1/lpf unknown) (unknown) (no (unknown) (unknown) Hyaline Casts (units ( unknown) date) unknown) (unknown) (no (unknown) (unknown) I have utilized (units (unknown) date) all available unknown) resources to reconcile the patient's home (unknown) (no (unknown) (unknown) I spent a total of (units (unknown) date) [] minutes of unknown) critical care time on this patient's care (unknown) (no (unknown) (unknown) INR 0.9 (units (unkno wn) date) unknown) (unknown) (no (unknown) (unknown) INR (units (unkno wn) date) unknown) (unknown) (no (unknown) (unknown) In the ED workup (units (unknown) date) was done, vitals unknown) notable for tachycardia in 120s. Labs notable (unknown) (no (unknown) (unknown) [facility] (units (unknown) date) [address] unknown) [place] [address] (unknown) (no (unknown) (unknown) Ketones 9.75 H (units (unknown) date) unknown) (unknown) (no (unknown) (unknown) Ketones (units (unkno wn) date) unknown) (unknown) (no (unknown) (unknown) Laboratory Results (units (unknown) date) - last 24 hr unknown) (unknown) (no (unknown) (unknown) Labs (units (unkno wn) date) unknown) (unknown) (no (unknown) (unknown) Labs: (units (unkno wn) date) unknown) (unknown) (no (unknown) (unknown) Lactate 4.3 H* (units (unknown) date) unknown) (unknown) (no (unknown) (unknown) Lactate 7.0 H* (units (unknown) date) unknown) (unknown) (no (unknown) (unknown) Lactate (units (unkno wn) date) unknown) (unknown) (no (unknown) (unknown) Lymph # (Auto) 700 (units (unknown) date) L unknown) (unknown) (no (unknown) (unknown) Lymph # (Auto) (units (unknown) date) unknown) (unknown) (no (unknown) (unknown) Lymph % (Auto) 3.0 (units (unknown) date) L unknown) (unknown) (no (unknown) (unknown) Lymph % (Auto) (units (unknown) date) unknown) (unknown) (no (unknown) (unknown) MCH 31.7 (units (unkno wn) date) unknown) (unknown) (no (unknown) (unknown) MCH (units (unkno wn) date) unknown) (unknown) (no (unknown) (unknown) MCHC 32.3 (units (unkn own) date) unknown) (unknown) (no (unknown) (unknown) MCHC (units (unkno wn) date) unknown) (unknown) (no (unknown) (unknown) MCV 98.2 (units (unkno wn) date) unknown) (unknown) (no (unknown) (unknown) MCV (units (unkno wn) date) unknown) (unknown) (no (unknown) (unknown) Magnesium 2.2 (units ( unknown) date) unknown) (unknown) (no (unknown) (unknown) Magnesium (units (unkn own) date) unknown) (unknown) (no (unknown) (unknown) Medical History (units (unknown) date) unknown) (unknown) (no (unknown) (unknown) Medication (units (unk nown) date) Instructions unknown) Recorded Confirmed Type (unknown) (no (unknown) (unknown) Meds (units (unkno wn) date) unknown) (unknown) (no (unknown) (unknown) Melanotic stools (units (unknown) date) unknown) (unknown) (no (unknown) (unknown) [place] # (Auto) 400 (units (unknown) date) unknown) (unknown) (no (unknown) (unknown) [place] # (Auto) (units ( unknown) date) unknown) (unknown) (no (unknown) (unknown) [place] % (Auto) 1.6 (units (unknown) date) L unknown) (unknown) (no (unknown) (unknown) [place] % (Auto) (units ( unknown) date) unknown) (unknown) (no (unknown) (unknown) Mr. Gaffney is a (units (unknown) date) 56M with PMH unknown) alcohol abuse who presents to the hospital with (unknown) (no (unknown) (unknown) NECK: trachea (units ( unknown) date) midline, no JVD unknown) (unknown) (no (unknown) (unknown) NEURO: awake, (units ( unknown) date) alert, oriented, unknown) tremulous, no focal deficits (unknown) (no (unknown) (unknown) Narrative (units (unkn own) date) unknown) (unknown) (no (unknown) (unknown) Narrative: (units (unk nown) date) unknown) (unknown) (no (unknown) (unknown) Neut # (Auto) (units ( unknown) date) [address] H unknown) (unknown) (no (unknown) (unknown) Neut # (Auto) (units ( unknown) date) unknown) (unknown) (no (unknown) (unknown) Neut % (Auto) 95.3 (units (unknown) date) H unknown) (unknown) (no (unknown) (unknown) Neut % (Auto) (units ( unknown) date) unknown) (unknown) (no (unknown) (unknown) Objective (units (unkn own) date) unknown) (unknown) (no (unknown) (unknown) Other No pertinent (units (unknown) date) family history in unknown) first degree relatives (unknown) (no (unknown) (unknown) Oxygen Delivery (units (unknown) date) Method Room Air unknown) Room Air (unknown) (no (unknown) (unknown) Oxygen Delivery (units (unknown) date) Method Room Air unknown) (unknown) (no (unknown) (unknown) Oxygen Delivery (units (unknown) date) Method unknown) (unknown) (no (unknown) (unknown) PT 10.4 (units (unkno wn) date) unknown) (unknown) (no (unknown) (unknown) PT (units (unkno wn) date) unknown) (unknown) (no (unknown) (unknown) PULM: clear (units (un known) date) bilaterally, no unknown) wheezes, rhonchi, rales (unknown) (no (unknown) (unknown) Patient History (units (unknown) date) unknown) (unknown) (no (unknown) (unknown) Patient: (units (unkno wn) date) Sky Gaffney unknown) MR#: [id number] (unknown) (no (unknown) (unknown) Penicillins (units (un known) date) Allergy Severe unknown) Anaphylaxis Verified 01/02/22 08:42 (unknown) (no (unknown) (unknown) Phosphorus 4.2 (units (unknown) date) unknown) (unknown) (no (unknown) (unknown) Phosphorus (units (unk nown) date) unknown) (unknown) (no (unknown) (unknown) Plt Count 306 (units ( unknown) date) unknown) (unknown) (no (unknown) (unknown) Plt Count (units (unkn own) date) unknown) (unknown) (no (unknown) (unknown) Potassium 5.0 (units ( unknown) date) unknown) (unknown) (no (unknown) (unknown) Potassium (units (unkn own) date) unknown) (unknown) (no (unknown) (unknown) Procalcitonin 0.31 (units (unknown) date) unknown) (unknown) (no (unknown) (unknown) Procalcitonin (units ( unknown) date) unknown) (unknown) (no (unknown) (unknown) Provider: (units (unkn own) date) Anish Peoples MD unknown) (unknown) (no (unknown) (unknown) Proxy: Bing (units (un known) date) Schribner, spouse unknown) (unknown) (no (unknown) (unknown) Pulse Oximetry 100 (units (unknown) date) 100 unknown) (unknown) (no (unknown) (unknown) Pulse Oximetry 100 (units (unknown) date) 97 unknown) (unknown) (no (unknown) (unknown) Pulse Oximetry 100 (units (unknown) date) unknown) (unknown) (no (unknown) (unknown) Pulse Oximetry 98 (units (unknown) date) unknown) (unknown) (no (unknown) (unknown) Pulse Oximetry 99 (units (unknown) date) 100 unknown) (unknown) (no (unknown) (unknown) Pulse Oximetry 99 (units (unknown) date) 98 unknown) (unknown) (no (unknown) (unknown) Pulse Oximetry 99 (units (unknown) date) unknown) (unknown) (no (unknown) (unknown) Pulse Rate 112 H (units (unknown) date) unknown) (unknown) (no (unknown) (unknown) Pulse Rate 113 H (units (unknown) date) 116 H unknown) (unknown) (no (unknown) (unknown) Pulse Rate 113 H (units (unknown) date) 119 H unknown) (unknown) (no (unknown) (unknown) Pulse Rate 116 H (units (unknown) date) unknown) (unknown) (no (unknown) (unknown) Pulse Rate 118 H (units (unknown) date) unknown) (unknown) (no (unknown) (unknown) Pulse Rate 125 H (units (unknown) date) unknown) (unknown) (no (unknown) (unknown) Pulse Rate 127 H (units (unknown) date) 131 H 130 H unknown) (unknown) (no (unknown) (unknown) Pulse Rate 133 H (units (unknown) date) 114 H unknown) (unknown) (no (unknown) (unknown) RBC 4.27 L (units (unk nown) date) unknown) (unknown) (no (unknown) (unknown) RBC (units (unkno wn) date) unknown) (unknown) (no (unknown) (unknown) RDW 14.2 (units (unkno wn) date) unknown) (unknown) (no (unknown) (unknown) RDW (units (unkno wn) date) unknown) (unknown) (no (unknown) (unknown) RUQ pain (units (unkno wn) date) unknown) (unknown) (no (unknown) (unknown) Rectal pain (units (un known) date) unknown) (unknown) (no (unknown) (unknown) Respiratory Rate (units (unknown) date) 15 unknown) (unknown) (no (unknown) (unknown) Respiratory Rate (units (unknown) date) 16 21 unknown) (unknown) (no (unknown) (unknown) Respiratory Rate (units (unknown) date) 20 14 13 unknown) (unknown) (no (unknown) (unknown) Respiratory Rate (units (unknown) date) 22 20 unknown) (unknown) (no (unknown) (unknown) Respiratory Rate (units (unknown) date) 27 H unknown) (unknown) (no (unknown) (unknown) Respiratory Rate (units (unknown) date) 29 H unknown) (unknown) (no (unknown) (unknown) Respiratory Rate (units (unknown) date) 45 H 17 unknown) (unknown) (no (unknown) (unknown) Respiratory Rate 9 (units (unknown) date) L unknown) (unknown) (no (unknown) (unknown) Result Diagrams: (units (unknown) date) unknown) (unknown) (no (unknown) (unknown) Review of Systems (units (unknown) date) unknown) (unknown) (no (unknown) (unknown) Safety + (units (unkno wn) date) Behavioral: unknown) (unknown) (no (unknown) (unknown) Signed (units (unkno wn) date) By:<Electronically unknown) signed by Anish Peoples MD> (unknown) (no (unknown) (unknown) Smoker (units (unkno wn) date) unknown) (unknown) (no (unknown) (unknown) Smoking Status (units (unknown) date) Current every day unknown) smoker (unknown) (no (unknown) (unknown) Social History: (units (unknown) date) unknown) (unknown) (no (unknown) (unknown) Sodium 143 (units (unk nown) date) unknown) (unknown) (no (unknown) (unknown) Sodium (units (unkno wn) date) unknown) (unknown) (no (unknown) (unknown) Status post (units (un known) date) cholecystectomy unknown) (unknown) (no (unknown) (unknown) Status post (units (un known) date) exploratory unknown) laparotomy (unknown) (no (unknown) (unknown) Status post (units (un known) date) rotator cuff repair unknown) (unknown) (no (unknown) (unknown) Substance Use Type (units (unknown) date) does not use unknown) (unknown) (no (unknown) (unknown) Surgical History (units (unknown) date) (Reviewed 05/08/22 unknown) @ 23:30 by Anish Peoples MD) (unknown) (no (unknown) (unknown) TSH 0.57 (units (unkno wn) date) unknown) (unknown) (no (unknown) (unknown) TSH (units (unkno wn) date) unknown) (unknown) (no (unknown) (unknown) Temperature 98.4 F (units (unknown) date) unknown) (unknown) (no (unknown) (unknown) Temperature (units (un known) date) unknown) (unknown) (no (unknown) (unknown) Threatened By a (units (unknown) date) Person unknown) (unknown) (no (unknown) (unknown) Time Patient Seen: (units (unknown) date) 22:00 unknown) (unknown) (no (unknown) (unknown) Time Spent With (units (unknown) date) Patient unknown) (unknown) (no (unknown) (unknown) Tobacco + (units (unkn own) date) Substance use: unknown) (unknown) (no (unknown) (unknown) Total Bilirubin (units (unknown) date) 0.8 unknown) (unknown) (no (unknown) (unknown) Total Bilirubin (units (unknown) date) unknown) (unknown) (no (unknown) (unknown) Total Protein 8.2 (units (unknown) date) unknown) (unknown) (no (unknown) (unknown) Total Protein (units ( unknown) date) unknown) (unknown) (no (unknown) (unknown) U Benzodiazepines (units (unknown) date) Scrn Positive H unknown) (unknown) (no (unknown) (unknown) U Benzodiazepines (units (unknown) date) Scrn unknown) (unknown) (no (unknown) (unknown) U Marijuana (THC) (units (unknown) date) Screen Negative unknown) (unknown) (no (unknown) (unknown) U Marijuana (THC) (units (unknown) date) Screen unknown) (unknown) (no (unknown) (unknown) U Methamphetamines (units (unknown) date) Scrn Negative unknown) (unknown) (no (unknown) (unknown) U Methamphetamines (units (unknown) date) Scrn unknown) (unknown) (no (unknown) (unknown) U Opiates 300ng/mL (units (unknown) date) cut Negative unknown) (unknown) (no (unknown) (unknown) U Opiates 300ng/mL (units (unknown) date) cut unknown) (unknown) (no (unknown) (unknown) U Tricyclic (units (un known) date) Antidepress unknown) Negative (unknown) (no (unknown) (unknown) U Tricyclic (units (un known) date) Antidepress unknown) (unknown) (no (unknown) (unknown) Ur Amphetamines (units (unknown) date) Screen Negative unknown) (unknown) (no (unknown) (unknown) Ur Amphetamines (units (unknown) date) Screen unknown) (unknown) (no (unknown) (unknown) Ur Barbiturates (units (unknown) date) Screen Negative unknown) (unknown) (no (unknown) (unknown) Ur Barbiturates (units (unknown) date) Screen unknown) (unknown) (no (unknown) (unknown) Ur Culture (units (unk nown) date) Indicated? Cult not unknown) indicated (unknown) (no (unknown) (unknown) Ur Culture (units (unk nown) date) Indicated? unknown) (unknown) (no (unknown) (unknown) Ur MDMA Scrn (units (u nknown) date) (Ecstasy) Negative unknown) (unknown) (no (unknown) (unknown) Ur MDMA Scrn (units (u nknown) date) (Ecstasy) unknown) (unknown) (no (unknown) (unknown) Ur Oxycodone (units (u nknown) date) Screen Positive H unknown) (unknown) (no (unknown) (unknown) Ur Oxycodone (units (u nknown) date) Screen unknown) (unknown) (no (unknown) (unknown) Ur Phencyclidine (units (unknown) date) Scrn Negative unknown) (unknown) (no (unknown) (unknown) Ur Phencyclidine (units (unknown) date) Scrn unknown) (unknown) (no (unknown) (unknown) Ur Transition (units ( unknown) date) Epith Cell 0-1/hpf unknown) (unknown) (no (unknown) (unknown) Ur Transition (units ( unknown) date) Epith Cell unknown) (unknown) (no (unknown) (unknown) Urine Bacteria (units (unknown) date) None seen unknown) (unknown) (no (unknown) (unknown) Urine Bacteria (units (unknown) date) unknown) (unknown) (no (unknown) (unknown) Urine Cocaine (units ( unknown) date) Screen Negative unknown) (unknown) (no (unknown) (unknown) Urine Cocaine (units ( unknown) date) Screen unknown) (unknown) (no (unknown) (unknown) Urine Methadone (units (unknown) date) Screen Negative unknown) (unknown) (no (unknown) (unknown) Urine Methadone (units (unknown) date) Screen unknown) (unknown) (no (unknown) (unknown) Urine RBC 0-1/hpf (units (unknown) date) unknown) (unknown) (no (unknown) (unknown) Urine RBC (units (unkn own) date) unknown) (unknown) (no (unknown) (unknown) Urine WBC None (units (unknown) date) seen unknown) (unknown) (no (unknown) (unknown) Urine WBC (units (unkn own) date) unknown) (unknown) (no (unknown) (unknown) VBG Base Excess (units (unknown) date) -12.0 L unknown) (unknown) (no (unknown) (unknown) VBG Base Excess (units (unknown) date) unknown) (unknown) (no (unknown) (unknown) VBG HCO3 14 L (units ( unknown) date) unknown) (unknown) (no (unknown) (unknown) VBG HCO3 (units (unkno wn) date) unknown) (unknown) (no (unknown) (unknown) VBG O2 Saturation (units (unknown) date) 67 L unknown) (unknown) (no (unknown) (unknown) VBG O2 Saturation (units (unknown) date) unknown) (unknown) (no (unknown) (unknown) VBG Total CO2 15 L (units (unknown) date) unknown) (unknown) (no (unknown) (unknown) VBG Total CO2 (units ( unknown) date) unknown) (unknown) (no (unknown) (unknown) VBG pCO2 26.8 L (units (unknown) date) unknown) (unknown) (no (unknown) (unknown) VBG pCO2 (units (unkno wn) date) unknown) (unknown) (no (unknown) (unknown) VBG pH 7.33 (units (un known) date) unknown) (unknown) (no (unknown) (unknown) VBG pH (units (unkno wn) date) unknown) (unknown) (no (unknown) (unknown) VBG pO2 36 (units (unk nown) date) unknown) (unknown) (no (unknown) (unknown) VBG pO2 (units (unkno wn) date) unknown) (unknown) (no (unknown) (unknown) Vital Signs (units (un known) date) unknown) (unknown) (no (unknown) (unknown) WBC 22.1 H (units (unk nown) date) unknown) (unknown) (no (unknown) (unknown) WBC (units (unkno wn) date) unknown) (unknown) (no (unknown) (unknown) [Embedded Image (units (unknown) date) Not Available] unknown) (unknown) (no (unknown) (unknown) abdomen/pelvis with (units (unknown) date) mild esophageal unknown) wall thickening, mild colon wall thickening, (unknown) (no (unknown) (unknown) alcohol intake (units (unknown) date) current unknown) (unknown) (no (unknown) (unknown) alcohol intake (units (unknown) date) frequency 3 or more unknown) drinks per day (unknown) (no (unknown) (unknown) and hepatic (units (un known) date) steatosis. unknown) (unknown) (no (unknown) (unknown) been having nausea (units (unknown) date) and vomiting, he unknown) has not noted bright red blood, his vomit (unknown) (no (unknown) (unknown) c-spine with no (units (unknown) date) acture process. CT unknown) chest with no acute process. CT (unknown) (no (unknown) (unknown) complication (units (u nknown) date) results in unknown) colostomy, now s/p reanastamosis. He states he drinks 3 (unknown) (no (unknown) (unknown) fall a few days (units (unknown) date) ago. He doesn't unknown) think he hit his head. He has developed (unknown) (no (unknown) (unknown) for WBC 22.1, hgb (units (unknown) date) 13.5, plts 306. unknown) Bicarb 10, creatinine 1.11. INR 0.9. LFTS with (unknown) (no (unknown) (unknown) for migraine vs (units (unknown) date) cluster, unlikely unknown) meningitis (unknown) (no (unknown) (unknown) has been brown. He (units (unknown) date) has no black or unknown) bloody stools. He feels shaky, anxious. He (unknown) (no (unknown) (unknown) has had withdrawal (units (unknown) date) before but never unknown) had a seizure, never been intubated. (unknown) (no (unknown) (unknown) headaches which he (units (unknown) date) says is pounding unknown) like feeling right behind his eyes. He has (unknown) (no (unknown) (unknown) hours (units (unkno wn) date) unknown) (unknown) (no (unknown) (unknown) household members (units (unknown) date) spouse unknown) (unknown) (no (unknown) (unknown) medications (units (un known) date) unknown) (unknown) (no (unknown) (unknown) members (units (unkno wn) date) unknown) (unknown) (no (unknown) (unknown) nausea, vomiting (units (unknown) date) and headaches. He unknown) does have a history of cholecystectomy with (unknown) (no (unknown) (unknown) positive oxycodone, (units (unknown) date) benzos positive. unknown) EtOH 190. CT head with no acute process. CT (unknown) (no (unknown) (unknown) quetiapine 100 mg (units (unknown) date) tablet 100 mg PO unknown) BEDTIME 01/02/22 05/08/22 History (unknown) (no (unknown) (unknown) today; this time (units (unknown) date) is exclusive of unknown) procedural time. Result panel 264 (unknown) (no date) (unknown) (unknown) > 60 ml/min (unkn own) (unknown) (no date) (unknown) (unknown) > 60 ml/min (unkn own) (unknown) (no date) (unknown) (unknown) 0.94 mg/dl (unkn own) (unknown) (no date) (unknown) (unknown) 105 mmol/l (unkn own) (unknown) (no date) (unknown) (unknown) 110 mg/dl (unkn own) (unknown) (no date) (unknown) (unknown) 110 mg/dl (unkn own) (unknown) (no date) (unknown) (unknown) 137 mmol/l (unkn own) (unknown) (no date) (unknown) (unknown) 14 mmol/l (unkn own) (unknown) (no date) (unknown) (unknown) 4.5 mmol/l (unkn own) (unknown) (no date) (unknown) (unknown) 7.7 mg/dl (unkn own) (unknown) (no date) (unknown) (unknown) 8 mg/dl (unkn own) (unknown) (no date) (unknown) (unknown) 8.5 (units unknown) (unknown) Result panel 265 (unknown) (no date) (unknown) (unknown) Flu A (units (unkn own) NEGATIVE unknown) (unknown) (no date) (unknown) (unknown) Flu B (units (unkn own) NEGATIVE unknown) (unknown) (no date) (unknown) (unknown) Negative (units (unkn own) unknown) (unknown) (no date) (unknown) (unknown) Negative (units (unkn own) unknown) Result panel 266 (unknown) (no date) (unknown) (unknown) 0.9 mmol/l (unkn own) Result panel 267 (unknown) (no date) (unknown) (unknown) > 60 ml/min (unkn own) (unknown) (no date) (unknown) (unknown) > 60 ml/min (unkn own) (unknown) (no date) (unknown) (unknown) 0.8 mg/dl (unkn own) (unknown) (no date) (unknown) (unknown) 0.86 mg/dl (unkn own) (unknown) (no date) (unknown) (unknown) 1.3 (units unknown) (unknown) (unknown) (no date) (unknown) (unknown) 1.7 mg/dl (unkn own) (unknown) (no date) (unknown) (unknown) 1.7 mg/dl (unkn own) (unknown) (no date) (unknown) (unknown) 1.9 mg/dl (unkn own) (unknown) (no date) (unknown) (unknown) 102 mmol/l (unkn own) (unknown) (no date) (unknown) (unknown) 115 mg/dl (unkn own) (unknown) (no date) (unknown) (unknown) 115 mg/dl (unkn own) (unknown) (no date) (unknown) (unknown) 134 mmol/l (unkn own) (unknown) (no date) (unknown) (unknown) 2.6 g/dl (unkn own) (unknown) (no date) (unknown) (unknown) 22 mmol/l (unkn own) (unknown) (no date) (unknown) (unknown) 28 iu/l (unkn own) (unknown) (no date) (unknown) (unknown) 3.3 g/dl (unkn own) (unknown) (no date) (unknown) (unknown) 4.1 mmol/l (unkn own) (unknown) (no date) (unknown) (unknown) 5.9 g/dl (unkn own) (unknown) (no date) (unknown) (unknown) 57 iu/l (unkn own) (unknown) (no date) (unknown) (unknown) 7.5 mg/dl (unkn own) (unknown) (no date) (unknown) (unknown) 8 mg/dl (unkn own) (unknown) (no date) (unknown) (unknown) 85 u/l (unkn own) (unknown) (no date) (unknown) (unknown) 9.3 (units unknown) (unknown) Result panel 268 (unknown) (no date) (unknown) (unknown) 0 /ul (unkn own) (unknown) (no date) (unknown) (unknown) 0 /ul (unkn own) (unknown) (no date) (unknown) (unknown) 0.0 % (unkn own) (unknown) (no date) (unknown) (unknown) 0.4 % (unkn own) (unknown) (no date) (unknown) (unknown) 10.6 g/dl (unkn own) (unknown) (no date) (unknown) (unknown) 13.8 % (unkn own) (unknown) (no date) (unknown) (unknown) 1300 /ul (unkn own) (unknown) (no date) (unknown) (unknown) 16.1 % (unkn own) (unknown) (no date) (unknown) (unknown) 183 x10 3/ul (unkn own) (unknown) (no date) (unknown) (unknown) 3.27 x10 6/ul (unkn own) (unknown) (no date) (unknown) (unknown) 30.8 % (unkn own) (unknown) (no date) (unknown) (unknown) 32.5 pg (unkn own) (unknown) (no date) (unknown) (unknown) 34.5 % (unkn own) (unknown) (no date) (unknown) (unknown) 6100 /ul (unkn own) (unknown) (no date) (unknown) (unknown) 73.6 % (unkn own) (unknown) (no date) (unknown) (unknown) 8.3 x10 3/ul (unkn own) (unknown) (no date) (unknown) (unknown) 800 /ul (unkn own) (unknown) (no date) (unknown) (unknown) 9.9 % (unkn own) (unknown) (no date) (unknown) (unknown) 94.2 fl (unkn own) Result panel 269 (unknown) (no (unknown) (unknown) (no value) (units (unk nown) date) unknown) (unknown) (no (unknown) (unknown) (past 8 hours): (units (unknown) date) unknown) (unknown) (no (unknown) (unknown) 05/08/22 05/08/22 (units (unknown) date) 05/08/22 unknown) (unknown) (no (unknown) (unknown) 05/08/22 05/08/22 (units (unknown) date) 05/09/22 unknown) (unknown) (no (unknown) (unknown) 05/09/22 05/09/22 (units (unknown) date) unknown) (unknown) (no (unknown) (unknown) 05/09/22 05:57 (units (unknown) date) unknown) (unknown) (no (unknown) (unknown) 05/09/22 (units (unkno wn) date) unknown) (unknown) (no (unknown) (unknown) 01:30 05/09/22 (units (unknown) date) unknown) (unknown) (no (unknown) (unknown) [id number] (units (unkno wn) date) unknown) (unknown) (no (unknown) (unknown) 02:00 05/09/22 (units (unknown) date) unknown) (unknown) (no (unknown) (unknown) 02:00 (units (unkno wn) date) unknown) (unknown) (no (unknown) (unknown) 02:30 05/09/22 (units (unknown) date) unknown) (unknown) (no (unknown) (unknown) 03:00 05/09/22 (units (unknown) date) unknown) (unknown) (no (unknown) (unknown) 03:00 (units (unkno wn) date) unknown) (unknown) (no (unknown) (unknown) 03:30 05/09/22 (units (unknown) date) unknown) (unknown) (no (unknown) (unknown) 04:00 05/09/22 (units (unknown) date) unknown) (unknown) (no (unknown) (unknown) 04:00 (units (unkno wn) date) unknown) (unknown) (no (unknown) (unknown) 04:30 05/09/22 (units (unknown) date) unknown) (unknown) (no (unknown) (unknown) 05:00 05/09/22 (units (unknown) date) unknown) (unknown) (no (unknown) (unknown) 05:00 (units (unkno wn) date) unknown) (unknown) (no (unknown) (unknown) 05:30 05/09/22 (units (unknown) date) unknown) (unknown) (no (unknown) (unknown) 05:57 05:57 (units (un known) date) unknown) (unknown) (no (unknown) (unknown) 06:00 05/09/22 (units (unknown) date) unknown) (unknown) (no (unknown) (unknown) 06:00 (units (unkno wn) date) unknown) (unknown) (no (unknown) (unknown) 06:30 05/09/22 (units (unknown) date) unknown) (unknown) (no (unknown) (unknown) 06:47 05/09/22 (units (unknown) date) unknown) (unknown) (no (unknown) (unknown) 06:47 (units (unkno wn) date) unknown) (unknown) (no (unknown) (unknown) 07:00 05/09/22 (units (unknown) date) unknown) (unknown) (no (unknown) (unknown) 07:30 (units (unkno wn) date) unknown) (unknown) (no (unknown) (unknown) 08:00 05/09/22 (units (unknown) date) unknown) (unknown) (no (unknown) (unknown) 08:00 (units (unkno wn) date) unknown) (unknown) (no (unknown) (unknown) 17:30 17:30 17:30 (units (unknown) date) unknown) (unknown) (no (unknown) (unknown) 17:55 18:00 18:00 (units (unknown) date) unknown) (unknown) (no (unknown) (unknown) 21:25 22:49 22:52 (units (unknown) date) unknown) (unknown) (no (unknown) (unknown) 23:17 23:17 02:07 (units (unknown) date) unknown) (unknown) (no (unknown) (unknown) ALT 28 (units (unkno wn) date) unknown) (unknown) (no (unknown) (unknown) ALT 36 (units (unkno wn) date) unknown) (unknown) (no (unknown) (unknown) ALT (units (unkno wn) date) unknown) (unknown) (no (unknown) (unknown) APTT 28 (units (unkno wn) date) unknown) (unknown) (no (unknown) (unknown) APTT (units (unkno wn) date) unknown) (unknown) (no (unknown) (unknown) AST 57 (units (unkno wn) date) unknown) (unknown) (no (unknown) (unknown) AST 87 H (units (unkno wn) date) unknown) (unknown) (no (unknown) (unknown) AST (units (unkno wn) date) unknown) (unknown) (no (unknown) (unknown) Age/Sex: 56 / M (units (unknown) date) unknown) (unknown) (no (unknown) (unknown) Albumin 3.3 L (units ( unknown) date) unknown) (unknown) (no (unknown) (unknown) Albumin 4.7 (units (un known) date) unknown) (unknown) (no (unknown) (unknown) Albumin (units (unkno wn) date) unknown) (unknown) (no (unknown) (unknown) Albumin/Globulin (units (unknown) date) Ratio 1.3 unknown) (unknown) (no (unknown) (unknown) Albumin/Globulin (units (unknown) date) Ratio unknown) (unknown) (no (unknown) (unknown) Alcoholism (units (unk nown) date) unknown) (unknown) (no (unknown) (unknown) Alkaline (units (unkno wn) date) Phosphatase 130 H unknown) (unknown) (no (unknown) (unknown) Alkaline (units (unkno wn) date) Phosphatase 85 unknown) (unknown) (no (unknown) (unknown) Alkaline (units (unkno wn) date) Phosphatase unknown) (unknown) (no (unknown) (unknown) Amorphous Sediment (units (unknown) date) 1 unknown) (unknown) (no (unknown) (unknown) Amorphous Sediment (units (unknown) date) unknown) (unknown) (no (unknown) (unknown) Antibody Screen (units (unknown) date) Negative unknown) (unknown) (no (unknown) (unknown) Antibody Screen (units (unknown) date) unknown) (unknown) (no (unknown) (unknown) Assessment + Plan (units (unknown) date) unknown) (unknown) (no (unknown) (unknown) BUN 12 (units (unkno wn) date) unknown) (unknown) (no (unknown) (unknown) BUN 8 L (units (unkno wn) date) unknown) (unknown) (no (unknown) (unknown) BUN (units (unkno wn) date) unknown) (unknown) (no (unknown) (unknown) BUN/Creatinine (units (unknown) date) Ratio 10.8 unknown) (unknown) (no (unknown) (unknown) BUN/Creatinine (units (unknown) date) Ratio 8.5 unknown) (unknown) (no (unknown) (unknown) BUN/Creatinine (units (unknown) date) Ratio 9.3 unknown) (unknown) (no (unknown) (unknown) BUN/Creatinine (units (unknown) date) Ratio unknown) (unknown) (no (unknown) (unknown) Baso # (Auto) 0 (units (unknown) date) unknown) (unknown) (no (unknown) (unknown) Baso # (Auto) (units ( unknown) date) unknown) (unknown) (no (unknown) (unknown) Baso % (Auto) 0.1 (units (unknown) date) unknown) (unknown) (no (unknown) (unknown) Baso % (Auto) 0.4 (units (unknown) date) unknown) (unknown) (no (unknown) (unknown) Baso % (Auto) (units ( unknown) date) unknown) (unknown) (no (unknown) (unknown) Blood Pressure (units (unknown) date) 113/72 unknown) (unknown) (no (unknown) (unknown) Blood Pressure (units (unknown) date) 122/59 L unknown) (unknown) (no (unknown) (unknown) Blood Pressure (units (unknown) date) 127/65 unknown) (unknown) (no (unknown) (unknown) Blood Pressure (units (unknown) date) 128/77 unknown) (unknown) (no (unknown) (unknown) Blood Pressure (units (unknown) date) 134/74 unknown) (unknown) (no (unknown) (unknown) Blood Pressure (units (unknown) date) 139/82 unknown) (unknown) (no (unknown) (unknown) Blood Pressure (units (unknown) date) 140/77 unknown) (unknown) (no (unknown) (unknown) Blood Pressure (units (unknown) date) 143/82 H unknown) (unknown) (no (unknown) (unknown) Blood Type O (units (u nknown) date) Negative unknown) (unknown) (no (unknown) (unknown) Blood Type (units (unk nown) date) unknown) (unknown) (no (unknown) (unknown) Calcium 7.5 L (units ( unknown) date) unknown) (unknown) (no (unknown) (unknown) Calcium 7.7 L (units ( unknown) date) unknown) (unknown) (no (unknown) (unknown) Calcium 8.4 (units (un known) date) unknown) (unknown) (no (unknown) (unknown) Calcium (units (unkno wn) date) unknown) (unknown) (no (unknown) (unknown) Carbon Dioxide 10 (units (unknown) date) L unknown) (unknown) (no (unknown) (unknown) Carbon Dioxide 14 (units (unknown) date) L unknown) (unknown) (no (unknown) (unknown) Carbon Dioxide 22 (units (unknown) date) unknown) (unknown) (no (unknown) (unknown) Carbon Dioxide (units (unknown) date) unknown) (unknown) (no (unknown) (unknown) Chloride 101 (units (u nknown) date) unknown) (unknown) (no (unknown) (unknown) Chloride 102 (units (u nknown) date) unknown) (unknown) (no (unknown) (unknown) Chloride 105 (units (u nknown) date) unknown) (unknown) (no (unknown) (unknown) Chloride (units (unkno wn) date) unknown) (unknown) (no (unknown) (unknown) Chronic back pain (units (unknown) date) unknown) (unknown) (no (unknown) (unknown) Creatinine 0.86 (units (unknown) date) unknown) (unknown) (no (unknown) (unknown) Creatinine 0.94 (units (unknown) date) unknown) (unknown) (no (unknown) (unknown) Creatinine 1.11 (units (unknown) date) unknown) (unknown) (no (unknown) (unknown) Creatinine (units (unk nown) date) unknown) (unknown) (no (unknown) (unknown) Critical Care (units ( unknown) date) time: unknown) (unknown) (no (unknown) (unknown) : 1965 (units (unknown) date) Acct:[id number] unknown) (unknown) (no (unknown) (unknown) Date Patient Seen: (units (unknown) date) 05/09/22 unknown) (unknown) (no (unknown) (unknown) Date of Service: (units (unknown) date) 05/08/22 unknown) (unknown) (no (unknown) (unknown) Degenerative disc (units (unknown) date) disease unknown) (unknown) (no (unknown) (unknown) Eos # (Auto) 0 (units (unknown) date) unknown) (unknown) (no (unknown) (unknown) Eos # (Auto) (units (u nknown) date) unknown) (unknown) (no (unknown) (unknown) Eos % (Auto) 0.0 L (units (unknown) date) unknown) (unknown) (no (unknown) (unknown) Eos % (Auto) (units (u nknown) date) unknown) (unknown) (no (unknown) (unknown) Estimated GFR > 60 (units (unknown) date) unknown) (unknown) (no (unknown) (unknown) Estimated GFR (units ( unknown) date) unknown) (unknown) (no (unknown) (unknown) Ethyl Alcohol 190 (units (unknown) date) H unknown) (unknown) (no (unknown) (unknown) Ethyl Alcohol (units ( unknown) date) unknown) (unknown) (no (unknown) (unknown) Exam (units (unkno wn) date) unknown) (unknown) (no (unknown) (unknown) Facet arthropathy, (units (unknown) date) lumbar unknown) (unknown) (no (unknown) (unknown) Family History (units (unknown) date) (Reviewed 05/08/22 unknown) @ 23:30 by Anish Peoples MD) (unknown) (no (unknown) (unknown) Footdrop (units (unkno wn) date) unknown) (unknown) (no (unknown) (unknown) Gait instability (units (unknown) date) unknown) (unknown) (no (unknown) (unknown) Globulin 2.6 (units (u nknown) date) unknown) (unknown) (no (unknown) (unknown) Globulin 3.5 (units (u nknown) date) unknown) (unknown) (no (unknown) (unknown) Globulin (units (unkno wn) date) unknown) (unknown) (no (unknown) (unknown) Glucose 110 H (units ( unknown) date) unknown) (unknown) (no (unknown) (unknown) Glucose 115 H (units ( unknown) date) unknown) (unknown) (no (unknown) (unknown) Glucose (units (unkno wn) date) unknown) (unknown) (no (unknown) (unknown) Hct 30.8 L (units (unk nown) date) unknown) (unknown) (no (unknown) (unknown) Hct 35.2 L (units (unk nown) date) unknown) (unknown) (no (unknown) (unknown) Hct 42.0 (units (unkno wn) date) unknown) (unknown) (no (unknown) (unknown) Hct (units (unkno wn) date) unknown) (unknown) (no (unknown) (unknown) Hepatic steatosis (units (unknown) date) unknown) (unknown) (no (unknown) (unknown) Herniated nucleus (units (unknown) date) pulposus, L4-5 unknown) (unknown) (no (unknown) (unknown) Hgb 10.6 L (units (unk nown) date) unknown) (unknown) (no (unknown) (unknown) Hgb 11.6 L (units (unk nown) date) unknown) (unknown) (no (unknown) (unknown) Hgb 13.5 (units (unkno wn) date) unknown) (unknown) (no (unknown) (unknown) Hgb (units (unkno wn) date) unknown) (unknown) (no (unknown) (unknown) History of (units (unk nown) date) colostomy reversal unknown) (unknown) (no (unknown) (unknown) Hyaline Casts (units ( unknown) date) 0-1/lpf unknown) (unknown) (no (unknown) (unknown) Hyaline Casts (units ( unknown) date) unknown) (unknown) (no (unknown) (unknown) I spent a total of (units (unknown) date) [] minutes of unknown) critical care time on this patient's care (unknown) (no (unknown) (unknown) INR 0.9 (units (unkno wn) date) unknown) (unknown) (no (unknown) (unknown) INR (units (unkno wn) date) unknown) (unknown) (no (unknown) (unknown) Influenza A (units (un known) date) (RT-PCR) Flu a unknown) negative (unknown) (no (unknown) (unknown) Influenza A (units (un known) date) (RT-PCR) unknown) (unknown) (no (unknown) (unknown) Influenza B (units (un known) date) (RT-PCR) Flu b unknown) negative (unknown) (no (unknown) (unknown) Influenza B (units (un known) date) (RT-PCR) unknown) (unknown) (no (unknown) (unknown) [facility] (units (unknown) date) [address] unknown) [place] [address] (unknown) (no (unknown) (unknown) Ketones 9.75 H (units (unknown) date) unknown) (unknown) (no (unknown) (unknown) Ketones (units (unkno wn) date) unknown) (unknown) (no (unknown) (unknown) Laboratory Results (units (unknown) date) - last 24 hr unknown) (unknown) (no (unknown) (unknown) Labs (units (unkno wn) date) unknown) (unknown) (no (unknown) (unknown) Labs: (units (unkno wn) date) unknown) (unknown) (no (unknown) (unknown) Lactate 0.9 (units (un known) date) unknown) (unknown) (no (unknown) (unknown) Lactate 4.3 H* (units (unknown) date) unknown) (unknown) (no (unknown) (unknown) Lactate 7.0 H* (units (unknown) date) unknown) (unknown) (no (unknown) (unknown) Lactate (units (unkno wn) date) unknown) (unknown) (no (unknown) (unknown) Lymph # (Auto) (units (unknown) date) 1300 unknown) (unknown) (no (unknown) (unknown) Lymph # (Auto) 700 (units (unknown) date) L unknown) (unknown) (no (unknown) (unknown) Lymph # (Auto) (units (unknown) date) unknown) (unknown) (no (unknown) (unknown) Lymph % (Auto) (units (unknown) date) 16.1 L unknown) (unknown) (no (unknown) (unknown) Lymph % (Auto) 3.0 (units (unknown) date) L unknown) (unknown) (no (unknown) (unknown) Lymph % (Auto) 6.7 (units (unknown) date) L unknown) (unknown) (no (unknown) (unknown) Lymph % (Auto) (units (unknown) date) unknown) (unknown) (no (unknown) (unknown) MCH 31.7 (units (unkno wn) date) unknown) (unknown) (no (unknown) (unknown) MCH 31.8 (units (unkno wn) date) unknown) (unknown) (no (unknown) (unknown) MCH 32.5 (units (unkno wn) date) unknown) (unknown) (no (unknown) (unknown) MCH (units (unkno wn) date) unknown) (unknown) (no (unknown) (unknown) MCHC 32.3 (units (unkn own) date) unknown) (unknown) (no (unknown) (unknown) MCHC 33.0 (units (unkn own) date) unknown) (unknown) (no (unknown) (unknown) MCHC 34.5 (units (unkn own) date) unknown) (unknown) (no (unknown) (unknown) MCHC (units (unkno wn) date) unknown) (unknown) (no (unknown) (unknown) MCV 94.2 (units (unkno wn) date) unknown) (unknown) (no (unknown) (unknown) MCV 96.4 (units (unkno wn) date) unknown) (unknown) (no (unknown) (unknown) MCV 98.2 (units (unkno wn) date) unknown) (unknown) (no (unknown) (unknown) MCV (units (unkno wn) date) unknown) (unknown) (no (unknown) (unknown) Magnesium 1.9 (units ( unknown) date) unknown) (unknown) (no (unknown) (unknown) Magnesium 2.2 (units ( unknown) date) unknown) (unknown) (no (unknown) (unknown) Magnesium (units (unkn own) date) unknown) (unknown) (no (unknown) (unknown) Medical History (units (unknown) date) unknown) (unknown) (no (unknown) (unknown) Melanotic stools (units (unknown) date) unknown) (unknown) (no (unknown) (unknown) [place] # (Auto) 400 (units (unknown) date) unknown) (unknown) (no (unknown) (unknown) [place] # (Auto) 600 (units (unknown) date) unknown) (unknown) (no (unknown) (unknown) [place] # (Auto) 800 (units (unknown) date) unknown) (unknown) (no (unknown) (unknown) [place] # (Auto) (units ( unknown) date) unknown) (unknown) (no (unknown) (unknown) [place] % (Auto) 1.6 (units (unknown) date) L unknown) (unknown) (no (unknown) (unknown) [place] % (Auto) 5.5 (units (unknown) date) unknown) (unknown) (no (unknown) (unknown) [place] % (Auto) 9.9 (units (unknown) date) unknown) (unknown) (no (unknown) (unknown) [place] % (Auto) (units ( unknown) date) unknown) (unknown) (no (unknown) (unknown) Neut # (Auto) (units ( unknown) date) 64135 H unknown) (unknown) (no (unknown) (unknown) Neut # (Auto) 6100 (units (unknown) date) unknown) (unknown) (no (unknown) (unknown) Neut # (Auto) 9800 (units (unknown) date) H unknown) (unknown) (no (unknown) (unknown) Neut # (Auto) (units ( unknown) date) unknown) (unknown) (no (unknown) (unknown) Neut % (Auto) 73.6 (units (unknown) date) unknown) (unknown) (no (unknown) (unknown) Neut % (Auto) 87.7 (units (unknown) date) H unknown) (unknown) (no (unknown) (unknown) Neut % (Auto) 95.3 (units (unknown) date) H unknown) (unknown) (no (unknown) (unknown) Neut % (Auto) (units ( unknown) date) unknown) (unknown) (no (unknown) (unknown) Objective (units (unkn own) date) unknown) (unknown) (no (unknown) (unknown) Other No pertinent (units (unknown) date) family history in unknown) first degree relatives (unknown) (no (unknown) (unknown) Oxygen Delivery (units (unknown) date) Method Room Air unknown) (unknown) (no (unknown) (unknown) PFSH (units (unkno wn) date) unknown) (unknown) (no (unknown) (unknown) PT 10.4 (units (unkno wn) date) unknown) (unknown) (no (unknown) (unknown) PT (units (unkno wn) date) unknown) (unknown) (no (unknown) (unknown) Patient: (units (unkno wn) date) Sky Gaffney unknown) MR#: [id number] (unknown) (no (unknown) (unknown) Phosphorus 1.7 L D (units (unknown) date) unknown) (unknown) (no (unknown) (unknown) Phosphorus 4.2 (units (unknown) date) unknown) (unknown) (no (unknown) (unknown) Phosphorus (units (unk nown) date) unknown) (unknown) (no (unknown) (unknown) Plt Count 183 (units ( unknown) date) unknown) (unknown) (no (unknown) (unknown) Plt Count 231 (units ( unknown) date) unknown) (unknown) (no (unknown) (unknown) Plt Count 306 (units ( unknown) date) unknown) (unknown) (no (unknown) (unknown) Plt Count (units (unkn own) date) unknown) (unknown) (no (unknown) (unknown) Potassium 4.1 (units ( unknown) date) unknown) (unknown) (no (unknown) (unknown) Potassium 4.5 (units ( unknown) date) unknown) (unknown) (no (unknown) (unknown) Potassium 5.0 (units ( unknown) date) unknown) (unknown) (no (unknown) (unknown) Potassium (units (unkn own) date) unknown) (unknown) (no (unknown) (unknown) Procalcitonin 0.31 (units (unknown) date) unknown) (unknown) (no (unknown) (unknown) Procalcitonin (units ( unknown) date) unknown) (unknown) (no (unknown) (unknown) Progress Note (units ( unknown) date) unknown) (unknown) (no (unknown) (unknown) Provider: (units (unkn own) date) Cristhian Mckinnon MD unknown) (unknown) (no (unknown) (unknown) Pulse Oximetry 96 (units (unknown) date) 100 unknown) (unknown) (no (unknown) (unknown) Pulse Oximetry 96 (units (unknown) date) 96 unknown) (unknown) (no (unknown) (unknown) Pulse Oximetry 96 (units (unknown) date) 99 unknown) (unknown) (no (unknown) (unknown) Pulse Oximetry 97 (units (unknown) date) 96 unknown) (unknown) (no (unknown) (unknown) Pulse Oximetry 98 (units (unknown) date) 96 unknown) (unknown) (no (unknown) (unknown) Pulse Oximetry 98 (units (unknown) date) unknown) (unknown) (no (unknown) (unknown) Pulse Rate 104 H (units (unknown) date) 99 H unknown) (unknown) (no (unknown) (unknown) Pulse Rate 86 (units ( unknown) date) unknown) (unknown) (no (unknown) (unknown) Pulse Rate 90 104 (units (unknown) date) H unknown) (unknown) (no (unknown) (unknown) Pulse Rate 92 H 87 (units (unknown) date) unknown) (unknown) (no (unknown) (unknown) Pulse Rate 96 H 91 (units (unknown) date) H unknown) (unknown) (no (unknown) (unknown) Pulse Rate 97 H 99 (units (unknown) date) H unknown) (unknown) (no (unknown) (unknown) Pulse Rate 98 H 98 (units (unknown) date) H unknown) (unknown) (no (unknown) (unknown) RBC 3.27 L (units (unk nown) date) unknown) (unknown) (no (unknown) (unknown) RBC 3.65 L (units (unk nown) date) unknown) (unknown) (no (unknown) (unknown) RBC 4.27 L (units (unk nown) date) unknown) (unknown) (no (unknown) (unknown) RBC (units (unkno wn) date) unknown) (unknown) (no (unknown) (unknown) RDW 13.8 (units (unkno wn) date) unknown) (unknown) (no (unknown) (unknown) RDW 14.2 (units (unkno wn) date) unknown) (unknown) (no (unknown) (unknown) RDW (units (unkno wn) date) unknown) (unknown) (no (unknown) (unknown) RSV (PCR) Negative (units (unknown) date) unknown) (unknown) (no (unknown) (unknown) RSV (PCR) (units (unkn own) date) unknown) (unknown) (no (unknown) (unknown) RUQ pain (units (unkno wn) date) unknown) (unknown) (no (unknown) (unknown) Rectal pain (units (un known) date) unknown) (unknown) (no (unknown) (unknown) Respiratory Rate (units (unknown) date) 13 16 unknown) (unknown) (no (unknown) (unknown) Respiratory Rate (units (unknown) date) 14 22 unknown) (unknown) (no (unknown) (unknown) Respiratory Rate (units (unknown) date) 18 15 unknown) (unknown) (no (unknown) (unknown) Respiratory Rate (units (unknown) date) 21 unknown) (unknown) (no (unknown) (unknown) Respiratory Rate 8 (units (unknown) date) L unknown) (unknown) (no (unknown) (unknown) Respiratory Rate 9 (units (unknown) date) L unknown) (unknown) (no (unknown) (unknown) Respiratory Rate (units (unknown) date) unknown) (unknown) (no (unknown) (unknown) Result Diagrams: (units (unknown) date) unknown) (unknown) (no (unknown) (unknown) SARS-CoV-2 (PCR) (units (unknown) date) Negative unknown) (unknown) (no (unknown) (unknown) SARS-CoV-2 (PCR) (units (unknown) date) unknown) (unknown) (no (unknown) (unknown) Signed By: (units (unk nown) date) unknown) (unknown) (no (unknown) (unknown) Smoker (units (unkno wn) date) unknown) (unknown) (no (unknown) (unknown) Smoking Status: (units (unknown) date) Current every day unknown) smoker (unknown) (no (unknown) (unknown) Social History (units (unknown) date) (Reviewed 05/08/22 unknown) @ 18:26 by Marylu Arce DO) (unknown) (no (unknown) (unknown) Sodium 134 L (units (u nknown) date) unknown) (unknown) (no (unknown) (unknown) Sodium 137 (units (unk nown) date) unknown) (unknown) (no (unknown) (unknown) Sodium 143 (units (unk nown) date) unknown) (unknown) (no (unknown) (unknown) Sodium (units (unkno wn) date) unknown) (unknown) (no (unknown) (unknown) Status post (units (un known) date) cholecystectomy unknown) (unknown) (no (unknown) (unknown) Status post (units (un known) date) exploratory unknown) laparotomy (unknown) (no (unknown) (unknown) Status post (units (un known) date) rotator cuff repair unknown) (unknown) (no (unknown) (unknown) Subjective (units (unk nown) date) unknown) (unknown) (no (unknown) (unknown) Surgical History (units (unknown) date) (Reviewed 05/08/22 unknown) @ 23:30 by Anish Peoples MD) (unknown) (no (unknown) (unknown) TSH 0.57 (units (unkno wn) date) unknown) (unknown) (no (unknown) (unknown) TSH (units (unkno wn) date) unknown) (unknown) (no (unknown) (unknown) Time Spent With (units (unknown) date) Patient unknown) (unknown) (no (unknown) (unknown) Total Bilirubin (units (unknown) date) 0.8 unknown) (unknown) (no (unknown) (unknown) Total Bilirubin (units (unknown) date) unknown) (unknown) (no (unknown) (unknown) Total Protein 5.9 (units (unknown) date) L unknown) (unknown) (no (unknown) (unknown) Total Protein 8.2 (units (unknown) date) unknown) (unknown) (no (unknown) (unknown) Total Protein (units ( unknown) date) unknown) (unknown) (no (unknown) (unknown) U Benzodiazepines (units (unknown) date) Scrn Positive H unknown) (unknown) (no (unknown) (unknown) U Benzodiazepines (units (unknown) date) Scrn unknown) (unknown) (no (unknown) (unknown) U Marijuana (THC) (units (unknown) date) Screen Negative unknown) (unknown) (no (unknown) (unknown) U Marijuana (THC) (units (unknown) date) Screen unknown) (unknown) (no (unknown) (unknown) U Methamphetamines (units (unknown) date) Scrn Negative unknown) (unknown) (no (unknown) (unknown) U Methamphetamines (units (unknown) date) Scrn unknown) (unknown) (no (unknown) (unknown) U Opiates 300ng/mL (units (unknown) date) cut Negative unknown) (unknown) (no (unknown) (unknown) U Opiates 300ng/mL (units (unknown) date) cut unknown) (unknown) (no (unknown) (unknown) U Tricyclic (units (un known) date) Antidepress unknown) Negative (unknown) (no (unknown) (unknown) U Tricyclic (units (un known) date) Antidepress unknown) (unknown) (no (unknown) (unknown) Ur Amphetamines (units (unknown) date) Screen Negative unknown) (unknown) (no (unknown) (unknown) Ur Amphetamines (units (unknown) date) Screen unknown) (unknown) (no (unknown) (unknown) Ur Barbiturates (units (unknown) date) Screen Negative unknown) (unknown) (no (unknown) (unknown) Ur Barbiturates (units (unknown) date) Screen unknown) (unknown) (no (unknown) (unknown) Ur Culture (units (unk nown) date) Indicated? Cult not unknown) indicated (unknown) (no (unknown) (unknown) Ur Culture (units (unk nown) date) Indicated? unknown) (unknown) (no (unknown) (unknown) Ur MDMA Scrn (units (u nknown) date) (Ecstasy) Negative unknown) (unknown) (no (unknown) (unknown) Ur MDMA Scrn (units (u nknown) date) (Ecstasy) unknown) (unknown) (no (unknown) (unknown) Ur Oxycodone (units (u nknown) date) Screen Positive H unknown) (unknown) (no (unknown) (unknown) Ur Oxycodone (units (u nknown) date) Screen unknown) (unknown) (no (unknown) (unknown) Ur Phencyclidine (units (unknown) date) Scrn Negative unknown) (unknown) (no (unknown) (unknown) Ur Phencyclidine (units (unknown) date) Scrn unknown) (unknown) (no (unknown) (unknown) Ur Transition (units ( unknown) date) Epith Cell 0-1/hpf unknown) (unknown) (no (unknown) (unknown) Ur Transition (units ( unknown) date) Epith Cell unknown) (unknown) (no (unknown) (unknown) Urine Bacteria (units (unknown) date) None seen unknown) (unknown) (no (unknown) (unknown) Urine Bacteria (units (unknown) date) unknown) (unknown) (no (unknown) (unknown) Urine Cocaine (units ( unknown) date) Screen Negative unknown) (unknown) (no (unknown) (unknown) Urine Cocaine (units ( unknown) date) Screen unknown) (unknown) (no (unknown) (unknown) Urine Methadone (units (unknown) date) Screen Negative unknown) (unknown) (no (unknown) (unknown) Urine Methadone (units (unknown) date) Screen unknown) (unknown) (no (unknown) (unknown) Urine RBC 0-1/hpf (units (unknown) date) unknown) (unknown) (no (unknown) (unknown) Urine RBC (units (unkn own) date) unknown) (unknown) (no (unknown) (unknown) Urine WBC None (units (unknown) date) seen unknown) (unknown) (no (unknown) (unknown) Urine WBC (units (unkn own) date) unknown) (unknown) (no (unknown) (unknown) VBG Base Excess (units (unknown) date) -12.0 L unknown) (unknown) (no (unknown) (unknown) VBG Base Excess (units (unknown) date) unknown) (unknown) (no (unknown) (unknown) VBG HCO3 14 L (units ( unknown) date) unknown) (unknown) (no (unknown) (unknown) VBG HCO3 (units (unkno wn) date) unknown) (unknown) (no (unknown) (unknown) VBG O2 Saturation (units (unknown) date) 67 L unknown) (unknown) (no (unknown) (unknown) VBG O2 Saturation (units (unknown) date) unknown) (unknown) (no (unknown) (unknown) VBG Total CO2 15 L (units (unknown) date) unknown) (unknown) (no (unknown) (unknown) VBG Total CO2 (units ( unknown) date) unknown) (unknown) (no (unknown) (unknown) VBG pCO2 26.8 L (units (unknown) date) unknown) (unknown) (no (unknown) (unknown) VBG pCO2 (units (unkno wn) date) unknown) (unknown) (no (unknown) (unknown) VBG pH 7.33 (units (un known) date) unknown) (unknown) (no (unknown) (unknown) VBG pH (units (unkno wn) date) unknown) (unknown) (no (unknown) (unknown) VBG pO2 36 (units (unk nown) date) unknown) (unknown) (no (unknown) (unknown) VBG pO2 (units (unkno wn) date) unknown) (unknown) (no (unknown) (unknown) Vital Signs (units (un known) date) unknown) (unknown) (no (unknown) (unknown) WBC 11.2 H (units (unk nown) date) unknown) (unknown) (no (unknown) (unknown) WBC 22.1 H (units (unk nown) date) unknown) (unknown) (no (unknown) (unknown) WBC 8.3 (units (unkno wn) date) unknown) (unknown) (no (unknown) (unknown) WBC (units (unkno wn) date) unknown) (unknown) (no (unknown) (unknown) [Embedded Image (units (unknown) date) Not Available] unknown) (unknown) (no (unknown) (unknown) alcohol intake: (units (unknown) date) current unknown) (unknown) (no (unknown) (unknown) household members: (units (unknown) date) spouse unknown) (unknown) (no (unknown) (unknown) marital status: (units (unknown) date) unknown) (unknown) (no (unknown) (unknown) substance use (units ( unknown) date) type: does not use unknown) (unknown) (no (unknown) (unknown) today; this time (units (unknown) date) is exclusive of unknown) procedural time. Result panel 270 (unknown) (no (unknown) (unknown) (no value) (units (unk nown) date) unknown) (unknown) (no (unknown) (unknown) (past 8 hours): (units (unknown) date) unknown) (unknown) (no (unknown) (unknown) -05/09 (units (unkno wn) date) discontinued unknown) levaquin/flagyl for empiric antibiotics (unknown) (no (unknown) (unknown) -CT head showed no (units (unknown) date) acute process unknown) (unknown) (no (unknown) (unknown) -CT scan showed (units (unknown) date) abnormalities unknown) (unknown) (no (unknown) (unknown) -MVI, folate (units (u nknown) date) unknown) (unknown) (no (unknown) (unknown) -SIRS positive (units (unknown) date) with tachycardia, unknown) tachypnea and elevated white count (unknown) (no (unknown) (unknown) -SW eval, patient (units (unknown) date) interested in detox unknown) (unknown) (no (unknown) (unknown) -blood cultures (units (unknown) date) pending unknown) (unknown) (no (unknown) (unknown) -chest xray and UA (units (unknown) date) with no evidence of unknown) acute infection (unknown) (no (unknown) (unknown) -clear liquid diet (units (unknown) date) for now, advance as unknown) able (unknown) (no (unknown) (unknown) -colitis is (units (un known) date) questionably unknown) infection (unknown) (no (unknown) (unknown) -d5ns for fluids (units (unknown) date) due to likely unknown) alcoholic ketoacidosis (unknown) (no (unknown) (unknown) -did get 390mg of (units (unknown) date) phenobarb in ED unknown) (unknown) (no (unknown) (unknown) -discontinued PPI (units (unknown) date) unknown) (unknown) (no (unknown) (unknown) -discontinued (units ( unknown) date) antibiotics as low unknown) likelihood infectious etiology (unknown) (no (unknown) (unknown) -discontinued (units ( unknown) date) antibiotics as unknown) there is no obvious infectious source and (unknown) (no (unknown) (unknown) -endoscopy not (units (unknown) date) indicated at this unknown) time (unknown) (no (unknown) (unknown) -for now continue (units (unknown) date) IV fluids unknown) (unknown) (no (unknown) (unknown) -hgb normal on (units (unknown) date) arrival unknown) (unknown) (no (unknown) (unknown) -if headache not (units (unknown) date) improved with unknown) treatment of withdrawal will need further workup (unknown) (no (unknown) (unknown) -improving with (units (unknown) date) fluids, unknown) antibiotics, and withdrawal meds (unknown) (no (unknown) (unknown) -initial bicarb on (units (unknown) date) bmp is 10 unknown) (unknown) (no (unknown) (unknown) -initial lactate (units (unknown) date) of 7, improved to unknown) 4.3 with fluids, continue to trend (unknown) (no (unknown) (unknown) -lactate and (units (u nknown) date) ketones elevated unknown) (unknown) (no (unknown) (unknown) -no diarrhea at (units (unknown) date) this time unknown) (unknown) (no (unknown) (unknown) -no vomiting in ED (units (unknown) date) unknown) (unknown) (no (unknown) (unknown) -ordered for CIWA (units (unknown) date) protocol with unknown) ativan (unknown) (no (unknown) (unknown) -ordered for high (units (unknown) date) dose thiamine unknown) (unknown) (no (unknown) (unknown) -ordered high dose (units (unknown) date) thiamine, plan for unknown) 500mg TID for 2 days (unknown) (no (unknown) (unknown) -possible colitis (units (unknown) date) and esophagitis unknown) noted on CT scan-these are nonspecific (unknown) (no (unknown) (unknown) -procal initially (units (unknown) date) 0.31 unknown) (unknown) (no (unknown) (unknown) -suspect alcoholic (units (unknown) date) ketoacidosis unknown) (unknown) (no (unknown) (unknown) -suspect (units (unkno wn) date) esophagitis may be unknown) secondary to vomiting (unknown) (no (unknown) (unknown) -suspect secondary (units (unknown) date) to alcohol abuse unknown) (unknown) (no (unknown) (unknown) -suspect secondary (units (unknown) date) to withdrawal vs unknown) infection (unknown) (no (unknown) (unknown) -suspect secondary (units (unknown) date) to withdrawal unknown) (unknown) (no (unknown) (unknown) -treat alcohol (units (unknown) date) abuse as above unknown) (unknown) (no (unknown) (unknown) -trend hemoglobin (units (unknown) date) expect it will drop unknown) with hydration (unknown) (no (unknown) (unknown) -vbg showed pH of (units (unknown) date) 7.33, nearly normal unknown) (unknown) (no (unknown) (unknown) -zofran PRN for (units (unknown) date) symptoms unknown) (unknown) (no (unknown) (unknown) 05/08/22 05/08/22 (units (unknown) date) 05/08/22 unknown) (unknown) (no (unknown) (unknown) 05/08/22 05/08/22 (units (unknown) date) 05/09/22 unknown) (unknown) (no (unknown) (unknown) 05/09/22 05/09/22 (units (unknown) date) unknown) (unknown) (no (unknown) (unknown) 05/09/22 05:57 (units (unknown) date) unknown) (unknown) (no (unknown) (unknown) 05/09/22 0930 (units ( unknown) date) unknown) (unknown) (no (unknown) (unknown) 05/09/22 (units (unkno wn) date) unknown) (unknown) (no (unknown) (unknown) 01:30 05/09/22 (units (unknown) date) unknown) (unknown) (no (unknown) (unknown) [id number] (units (unkno wn) date) unknown) (unknown) (no (unknown) (unknown) 02:00 05/09/22 (units (unknown) date) unknown) (unknown) (no (unknown) (unknown) 02:00 (units (unkno wn) date) unknown) (unknown) (no (unknown) (unknown) 02:30 05/09/22 (units (unknown) date) unknown) (unknown) (no (unknown) (unknown) 03:00 05/09/22 (units (unknown) date) unknown) (unknown) (no (unknown) (unknown) 03:00 (units (unkno wn) date) unknown) (unknown) (no (unknown) (unknown) 03:30 05/09/22 (units (unknown) date) unknown) (unknown) (no (unknown) (unknown) 04:00 05/09/22 (units (unknown) date) unknown) (unknown) (no (unknown) (unknown) 04:00 (units (unkno wn) date) unknown) (unknown) (no (unknown) (unknown) 04:30 05/09/22 (units (unknown) date) unknown) (unknown) (no (unknown) (unknown) 05:00 05/09/22 (units (unknown) date) unknown) (unknown) (no (unknown) (unknown) 05:00 (units (unkno wn) date) unknown) (unknown) (no (unknown) (unknown) 05:30 05/09/22 (units (unknown) date) unknown) (unknown) (no (unknown) (unknown) 05:57 05:57 (units (un known) date) unknown) (unknown) (no (unknown) (unknown) 06:00 05/09/22 (units (unknown) date) unknown) (unknown) (no (unknown) (unknown) 06:00 (units (unkno wn) date) unknown) (unknown) (no (unknown) (unknown) 06:30 05/09/22 (units (unknown) date) unknown) (unknown) (no (unknown) (unknown) 06:47 05/09/22 (units (unknown) date) unknown) (unknown) (no (unknown) (unknown) 06:47 (units (unkno wn) date) unknown) (unknown) (no (unknown) (unknown) 07:00 05/09/22 (units (unknown) date) unknown) (unknown) (no (unknown) (unknown) 07:30 (units (unkno wn) date) unknown) (unknown) (no (unknown) (unknown) 08:00 05/09/22 (units (unknown) date) unknown) (unknown) (no (unknown) (unknown) 08:00 (units (unkno wn) date) unknown) (unknown) (no (unknown) (unknown) 1. Alcohol (units (unk nown) date) withdrawal and unknown) alcohol abuse (unknown) (no (unknown) (unknown) 17:30 17:30 17:30 (units (unknown) date) unknown) (unknown) (no (unknown) (unknown) 17:55 18:00 18:00 (units (unknown) date) unknown) (unknown) (no (unknown) (unknown) 2. Possible severe (units (unknown) date) sepsis, ruled out unknown) (unknown) (no (unknown) (unknown) 21:25 22:49 22:52 (units (unknown) date) unknown) (unknown) (no (unknown) (unknown) 23:17 23:17 02:07 (units (unknown) date) unknown) (unknown) (no (unknown) (unknown) 3. Vomiting, (units (u nknown) date) question bloody unknown) (unknown) (no (unknown) (unknown) 4. Acidosis (units (un known) date) unknown) (unknown) (no (unknown) (unknown) 56-year-old male (units (unknown) date) with alcohol unknown) dependency admitted due to nausea, vomiting, (unknown) (no (unknown) (unknown) 6. Possible (units (un known) date) esophagitis, unknown) colitis (unknown) (no (unknown) (unknown) 7. Sinus (units (unkno wn) date) tachycardia unknown) (unknown) (no (unknown) (unknown) 8. Headache (units (un known) date) unknown) (unknown) (no (unknown) (unknown) ALT 28 (units (unkno wn) date) unknown) (unknown) (no (unknown) (unknown) ALT 36 (units (unkno wn) date) unknown) (unknown) (no (unknown) (unknown) ALT (units (unkno wn) date) unknown) (unknown) (no (unknown) (unknown) APTT 28 (units (unkno wn) date) unknown) (unknown) (no (unknown) (unknown) APTT (units (unkno wn) date) unknown) (unknown) (no (unknown) (unknown) AST 57 (units (unkno wn) date) unknown) (unknown) (no (unknown) (unknown) AST 87 H (units (unkno wn) date) unknown) (unknown) (no (unknown) (unknown) AST (units (unkno wn) date) unknown) (unknown) (no (unknown) (unknown) Abdomen: Soft, (units (unknown) date) tender across mid unknown) abdomen (unknown) (no (unknown) (unknown) Age/Sex: 56 / M (units (unknown) date) unknown) (unknown) (no (unknown) (unknown) Albumin 3.3 L (units ( unknown) date) unknown) (unknown) (no (unknown) (unknown) Albumin 4.7 (units (un known) date) unknown) (unknown) (no (unknown) (unknown) Albumin (units (unkno wn) date) unknown) (unknown) (no (unknown) (unknown) Albumin/Globulin (units (unknown) date) Ratio 1.3 unknown) (unknown) (no (unknown) (unknown) Albumin/Globulin (units (unknown) date) Ratio unknown) (unknown) (no (unknown) (unknown) Alcoholism (units (unk nown) date) unknown) (unknown) (no (unknown) (unknown) Alkaline (units (unkno wn) date) Phosphatase 130 H unknown) (unknown) (no (unknown) (unknown) Alkaline (units (unkno wn) date) Phosphatase 85 unknown) (unknown) (no (unknown) (unknown) Alkaline (units (unkno wn) date) Phosphatase unknown) (unknown) (no (unknown) (unknown) Amorphous Sediment (units (unknown) date) 1 unknown) (unknown) (no (unknown) (unknown) Amorphous Sediment (units (unknown) date) unknown) (unknown) (no (unknown) (unknown) Antibody Screen (units (unknown) date) Negative unknown) (unknown) (no (unknown) (unknown) Antibody Screen (units (unknown) date) unknown) (unknown) (no (unknown) (unknown) Assessment + Plan (units (unknown) date) narrative: unknown) (unknown) (no (unknown) (unknown) Assessment + Plan (units (unknown) date) unknown) (unknown) (no (unknown) (unknown) BUN 12 (units (unkno wn) date) unknown) (unknown) (no (unknown) (unknown) BUN 8 L (units (unkno wn) date) unknown) (unknown) (no (unknown) (unknown) BUN (units (unkno wn) date) unknown) (unknown) (no (unknown) (unknown) BUN/Creatinine (units (unknown) date) Ratio 10.8 unknown) (unknown) (no (unknown) (unknown) BUN/Creatinine (units (unknown) date) Ratio 8.5 unknown) (unknown) (no (unknown) (unknown) BUN/Creatinine (units (unknown) date) Ratio 9.3 unknown) (unknown) (no (unknown) (unknown) BUN/Creatinine (units (unknown) date) Ratio unknown) (unknown) (no (unknown) (unknown) Baso # (Auto) 0 (units (unknown) date) unknown) (unknown) (no (unknown) (unknown) Baso # (Auto) (units ( unknown) date) unknown) (unknown) (no (unknown) (unknown) Baso % (Auto) 0.1 (units (unknown) date) unknown) (unknown) (no (unknown) (unknown) Baso % (Auto) 0.4 (units (unknown) date) unknown) (unknown) (no (unknown) (unknown) Baso % (Auto) (units ( unknown) date) unknown) (unknown) (no (unknown) (unknown) Blood Pressure (units (unknown) date) 113/72 unknown) (unknown) (no (unknown) (unknown) Blood Pressure (units (unknown) date) 122/59 L unknown) (unknown) (no (unknown) (unknown) Blood Pressure (units (unknown) date) 127/65 unknown) (unknown) (no (unknown) (unknown) Blood Pressure (units (unknown) date) 128/77 unknown) (unknown) (no (unknown) (unknown) Blood Pressure (units (unknown) date) 134/74 unknown) (unknown) (no (unknown) (unknown) Blood Pressure (units (unknown) date) 139/82 unknown) (unknown) (no (unknown) (unknown) Blood Pressure (units (unknown) date) 140/77 unknown) (unknown) (no (unknown) (unknown) Blood Pressure (units (unknown) date) 143/82 H unknown) (unknown) (no (unknown) (unknown) Blood Type O (units (u nknown) date) Negative unknown) (unknown) (no (unknown) (unknown) Blood Type (units (unk nown) date) unknown) (unknown) (no (unknown) (unknown) CODE: Full (units (unk nown) date) unknown) (unknown) (no (unknown) (unknown) Calcium 7.5 L (units ( unknown) date) unknown) (unknown) (no (unknown) (unknown) Calcium 7.7 L (units ( unknown) date) unknown) (unknown) (no (unknown) (unknown) Calcium 8.4 (units (un known) date) unknown) (unknown) (no (unknown) (unknown) Calcium (units (unkno wn) date) unknown) (unknown) (no (unknown) (unknown) Carbon Dioxide 10 (units (unknown) date) L unknown) (unknown) (no (unknown) (unknown) Carbon Dioxide 14 (units (unknown) date) L unknown) (unknown) (no (unknown) (unknown) Carbon Dioxide 22 (units (unknown) date) unknown) (unknown) (no (unknown) (unknown) Carbon Dioxide (units (unknown) date) unknown) (unknown) (no (unknown) (unknown) Chloride 101 (units (u nknown) date) unknown) (unknown) (no (unknown) (unknown) Chloride 102 (units (u nknown) date) unknown) (unknown) (no (unknown) (unknown) Chloride 105 (units (u nknown) date) unknown) (unknown) (no (unknown) (unknown) Chloride (units (unkno wn) date) unknown) (unknown) (no (unknown) (unknown) Chronic back pain (units (unknown) date) unknown) (unknown) (no (unknown) (unknown) Creatinine 0.86 (units (unknown) date) unknown) (unknown) (no (unknown) (unknown) Creatinine 0.94 (units (unknown) date) unknown) (unknown) (no (unknown) (unknown) Creatinine 1.11 (units (unknown) date) unknown) (unknown) (no (unknown) (unknown) Creatinine (units (unk nown) date) unknown) (unknown) (no (unknown) (unknown) Critical Care (units ( unknown) date) time: unknown) (unknown) (no (unknown) (unknown) : 1965 (units (unknown) date) Acct:[id number] unknown) (unknown) (no (unknown) (unknown) Date Patient Seen: (units (unknown) date) 05/09/22 unknown) (unknown) (no (unknown) (unknown) Date of Service: (units (unknown) date) 05/08/22 unknown) (unknown) (no (unknown) (unknown) Degenerative disc (units (unknown) date) disease unknown) (unknown) (no (unknown) (unknown) Eos # (Auto) 0 (units (unknown) date) unknown) (unknown) (no (unknown) (unknown) Eos # (Auto) (units (u nknown) date) unknown) (unknown) (no (unknown) (unknown) Eos % (Auto) 0.0 L (units (unknown) date) unknown) (unknown) (no (unknown) (unknown) Eos % (Auto) (units (u nknown) date) unknown) (unknown) (no (unknown) (unknown) Estimated GFR > 60 (units (unknown) date) unknown) (unknown) (no (unknown) (unknown) Estimated GFR (units ( unknown) date) unknown) (unknown) (no (unknown) (unknown) Ethyl Alcohol 190 (units (unknown) date) H unknown) (unknown) (no (unknown) (unknown) Ethyl Alcohol (units ( unknown) date) unknown) (unknown) (no (unknown) (unknown) Exam Narrative: (units (unknown) date) unknown) (unknown) (no (unknown) (unknown) Exam (units (unkno wn) date) unknown) (unknown) (no (unknown) (unknown) Extremities: No (units (unknown) date) edema unknown) (unknown) (no (unknown) (unknown) Facet arthropathy, (units (unknown) date) lumbar unknown) (unknown) (no (unknown) (unknown) Family History (units (unknown) date) (Reviewed 05/08/22 unknown) @ 23:30 by Anish Peoples MD) (unknown) (no (unknown) (unknown) [place] (units (unkno wn) date) unknown) (unknown) (no (unknown) (unknown) Gait instability (units (unknown) date) unknown) (unknown) (no (unknown) (unknown) General: Alert and (units (unknown) date) cooperative, unknown) appears in distress (unknown) (no (unknown) (unknown) Globulin 2.6 (units (u nknown) date) unknown) (unknown) (no (unknown) (unknown) Globulin 3.5 (units (u nknown) date) unknown) (unknown) (no (unknown) (unknown) Globulin (units (unkno wn) date) unknown) (unknown) (no (unknown) (unknown) Glucose 110 H (units ( unknown) date) unknown) (unknown) (no (unknown) (unknown) Glucose 115 H (units ( unknown) date) unknown) (unknown) (no (unknown) (unknown) Glucose (units (unkno wn) date) unknown) (unknown) (no (unknown) (unknown) Hct 30.8 L (units (unk nown) date) unknown) (unknown) (no (unknown) (unknown) Hct 35.2 L (units (unk nown) date) unknown) (unknown) (no (unknown) (unknown) Hct 42.0 (units (unkno wn) date) unknown) (unknown) (no (unknown) (unknown) Hct (units (unkno wn) date) unknown) (unknown) (no (unknown) (unknown) Heart: Regular (units (unknown) date) rhythm unknown) (unknown) (no (unknown) (unknown) Hepatic steatosis (units (unknown) date) unknown) (unknown) (no (unknown) (unknown) Herniated nucleus (units (unknown) date) pulposus, L4-5 unknown) (unknown) (no (unknown) (unknown) Hgb 10.6 L (units (unk nown) date) unknown) (unknown) (no (unknown) (unknown) Hgb 11.6 L (units (unk nown) date) unknown) (unknown) (no (unknown) (unknown) Hgb 13.5 (units (unkno wn) date) unknown) (unknown) (no (unknown) (unknown) Hgb (units (unkno wn) date) unknown) (unknown) (no (unknown) (unknown) History of (units (unk nown) date) colostomy reversal unknown) (unknown) (no (unknown) (unknown) Hyaline Casts (units ( unknown) date) 0-1/lpf unknown) (unknown) (no (unknown) (unknown) Hyaline Casts (units ( unknown) date) unknown) (unknown) (no (unknown) (unknown) I spent a total of (units (unknown) date) [] minutes of unknown) critical care time on this patient's care (unknown) (no (unknown) (unknown) INR 0.9 (units (unkno wn) date) unknown) (unknown) (no (unknown) (unknown) INR (units (unkno wn) date) unknown) (unknown) (no (unknown) (unknown) Influenza A (units (un known) date) (RT-PCR) Flu a unknown) negative (unknown) (no (unknown) (unknown) Influenza A (units (un known) date) (RT-PCR) unknown) (unknown) (no (unknown) (unknown) Influenza B (units (un known) date) (RT-PCR) Flu b unknown) negative (unknown) (no (unknown) (unknown) Influenza B (units (un known) date) (RT-PCR) unknown) (unknown) (no (unknown) (unknown) Interval history: (units (unknown) date) unknown) (unknown) (no (unknown) (unknown) [facility] (units (unknown) date) [address] unknown) [place] [address] (unknown) (no (unknown) (unknown) Ketones 9.75 H (units (unknown) date) unknown) (unknown) (no (unknown) (unknown) Ketones (units (unkno wn) date) unknown) (unknown) (no (unknown) (unknown) Laboratory Results (units (unknown) date) - last 24 hr unknown) (unknown) (no (unknown) (unknown) Labs (units (unkno wn) date) unknown) (unknown) (no (unknown) (unknown) Labs: (units (unkno wn) date) unknown) (unknown) (no (unknown) (unknown) Lactate 0.9 (units (un known) date) unknown) (unknown) (no (unknown) (unknown) Lactate 4.3 H* (units (unknown) date) unknown) (unknown) (no (unknown) (unknown) Lactate 7.0 H* (units (unknown) date) unknown) (unknown) (no (unknown) (unknown) Lactate (units (unkno wn) date) unknown) (unknown) (no (unknown) (unknown) Lungs: Clear (units (u nknown) date) unknown) (unknown) (no (unknown) (unknown) Lymph # (Auto) (units (unknown) date) 1300 unknown) (unknown) (no (unknown) (unknown) Lymph # (Auto) 700 (units (unknown) date) L unknown) (unknown) (no (unknown) (unknown) Lymph # (Auto) (units (unknown) date) unknown) (unknown) (no (unknown) (unknown) Lymph % (Auto) (units (unknown) date) 16.1 L unknown) (unknown) (no (unknown) (unknown) Lymph % (Auto) 3.0 (units (unknown) date) L unknown) (unknown) (no (unknown) (unknown) Lymph % (Auto) 6.7 (units (unknown) date) L unknown) (unknown) (no (unknown) (unknown) Lymph % (Auto) (units (unknown) date) unknown) (unknown) (no (unknown) (unknown) MCH 31.7 (units (unkno wn) date) unknown) (unknown) (no (unknown) (unknown) MCH 31.8 (units (unkno wn) date) unknown) (unknown) (no (unknown) (unknown) MCH 32.5 (units (unkno wn) date) unknown) (unknown) (no (unknown) (unknown) MCH (units (unkno wn) date) unknown) (unknown) (no (unknown) (unknown) MCHC 32.3 (units (unkn own) date) unknown) (unknown) (no (unknown) (unknown) MCHC 33.0 (units (unkn own) date) unknown) (unknown) (no (unknown) (unknown) MCHC 34.5 (units (unkn own) date) unknown) (unknown) (no (unknown) (unknown) MCHC (units (unkno wn) date) unknown) (unknown) (no (unknown) (unknown) MCV 94.2 (units (unkno wn) date) unknown) (unknown) (no (unknown) (unknown) MCV 96.4 (units (unkno wn) date) unknown) (unknown) (no (unknown) (unknown) MCV 98.2 (units (unkno wn) date) unknown) (unknown) (no (unknown) (unknown) MCV (units (unkno wn) date) unknown) (unknown) (no (unknown) (unknown) Magnesium 1.9 (units ( unknown) date) unknown) (unknown) (no (unknown) (unknown) Magnesium 2.2 (units ( unknown) date) unknown) (unknown) (no (unknown) (unknown) Magnesium (units (unkn own) date) unknown) (unknown) (no (unknown) (unknown) Medical History (units (unknown) date) unknown) (unknown) (no (unknown) (unknown) Melanotic stools (units (unknown) date) unknown) (unknown) (no (unknown) (unknown) [place] # (Auto) 400 (units (unknown) date) unknown) (unknown) (no (unknown) (unknown) [place] # (Auto) 600 (units (unknown) date) unknown) (unknown) (no (unknown) (unknown) [place] # (Auto) 800 (units (unknown) date) unknown) (unknown) (no (unknown) (unknown) [place] # (Auto) (units ( unknown) date) unknown) (unknown) (no (unknown) (unknown) [place] % (Auto) 1.6 (units (unknown) date) L unknown) (unknown) (no (unknown) (unknown) [place] % (Auto) 5.5 (units (unknown) date) unknown) (unknown) (no (unknown) (unknown) [place] % (Auto) 9.9 (units (unknown) date) unknown) (unknown) (no (unknown) (unknown) [place] % (Auto) (units ( unknown) date) unknown) (unknown) (no (unknown) (unknown) Narrative (units (unkn own) date) unknown) (unknown) (no (unknown) (unknown) Neurological: (units ( unknown) date) Patient with mild unknown) tremoring, perspiring (unknown) (no (unknown) (unknown) Neut # (Auto) (units ( unknown) date) 66873 H unknown) (unknown) (no (unknown) (unknown) Neut # (Auto) 6100 (units (unknown) date) unknown) (unknown) (no (unknown) (unknown) Neut # (Auto) 9800 (units (unknown) date) H unknown) (unknown) (no (unknown) (unknown) Neut # (Auto) (units ( unknown) date) unknown) (unknown) (no (unknown) (unknown) Neut % (Auto) 73.6 (units (unknown) date) unknown) (unknown) (no (unknown) (unknown) Neut % (Auto) 87.7 (units (unknown) date) H unknown) (unknown) (no (unknown) (unknown) Neut % (Auto) 95.3 (units (unknown) date) H unknown) (unknown) (no (unknown) (unknown) Neut % (Auto) (units ( unknown) date) unknown) (unknown) (no (unknown) (unknown) Objective (units (unkn own) date) unknown) (unknown) (no (unknown) (unknown) Other No pertinent (units (unknown) date) family history in unknown) first degree relatives (unknown) (no (unknown) (unknown) Oxygen Delivery (units (unknown) date) Method Room Air unknown) (unknown) (no (unknown) (unknown) PFSH (units (unkno wn) date) unknown) (unknown) (no (unknown) (unknown) PT 10.4 (units (unkno wn) date) unknown) (unknown) (no (unknown) (unknown) PT (units (unkno wn) date) unknown) (unknown) (no (unknown) (unknown) Patient has (units (un known) date) persistent severe unknown) nausea and also having pain across his abdomen, (unknown) (no (unknown) (unknown) Patient: (units (unkno wn) date) Sky Gaffney unknown) MR#: [id number] (unknown) (no (unknown) (unknown) Phosphorus 1.7 L D (units (unknown) date) unknown) (unknown) (no (unknown) (unknown) Phosphorus 4.2 (units (unknown) date) unknown) (unknown) (no (unknown) (unknown) Phosphorus (units (unk nown) date) unknown) (unknown) (no (unknown) (unknown) Plt Count 183 (units ( unknown) date) unknown) (unknown) (no (unknown) (unknown) Plt Count 231 (units ( unknown) date) unknown) (unknown) (no (unknown) (unknown) Plt Count 306 (units ( unknown) date) unknown) (unknown) (no (unknown) (unknown) Plt Count (units (unkn own) date) unknown) (unknown) (no (unknown) (unknown) Potassium 4.1 (units ( unknown) date) unknown) (unknown) (no (unknown) (unknown) Potassium 4.5 (units ( unknown) date) unknown) (unknown) (no (unknown) (unknown) Potassium 5.0 (units ( unknown) date) unknown) (unknown) (no (unknown) (unknown) Potassium (units (unkn own) date) unknown) (unknown) (no (unknown) (unknown) Procalcitonin 0.31 (units (unknown) date) unknown) (unknown) (no (unknown) (unknown) Procalcitonin (units ( unknown) date) unknown) (unknown) (no (unknown) (unknown) Progress Note (units ( unknown) date) unknown) (unknown) (no (unknown) (unknown) Provider: (units (unkn own) date) Cristhian Mckinnon MD unknown) (unknown) (no (unknown) (unknown) Proxy: Bing (units (un known) date) Schribner, spouse unknown) (unknown) (no (unknown) (unknown) Pulse Oximetry 96 (units (unknown) date) 100 unknown) (unknown) (no (unknown) (unknown) Pulse Oximetry 96 (units (unknown) date) 96 unknown) (unknown) (no (unknown) (unknown) Pulse Oximetry 96 (units (unknown) date) 99 unknown) (unknown) (no (unknown) (unknown) Pulse Oximetry 97 (units (unknown) date) 96 unknown) (unknown) (no (unknown) (unknown) Pulse Oximetry 98 (units (unknown) date) 96 unknown) (unknown) (no (unknown) (unknown) Pulse Oximetry 98 (units (unknown) date) unknown) (unknown) (no (unknown) (unknown) Pulse Rate 104 H (units (unknown) date) 99 H unknown) (unknown) (no (unknown) (unknown) Pulse Rate 86 (units ( unknown) date) unknown) (unknown) (no (unknown) (unknown) Pulse Rate 90 104 (units (unknown) date) H unknown) (unknown) (no (unknown) (unknown) Pulse Rate 92 H 87 (units (unknown) date) unknown) (unknown) (no (unknown) (unknown) Pulse Rate 96 H 91 (units (unknown) date) H unknown) (unknown) (no (unknown) (unknown) Pulse Rate 97 H 99 (units (unknown) date) H unknown) (unknown) (no (unknown) (unknown) Pulse Rate 98 H 98 (units (unknown) date) H unknown) (unknown) (no (unknown) (unknown) RBC 3.27 L (units (unk nown) date) unknown) (unknown) (no (unknown) (unknown) RBC 3.65 L (units (unk nown) date) unknown) (unknown) (no (unknown) (unknown) RBC 4.27 L (units (unk nown) date) unknown) (unknown) (no (unknown) (unknown) RBC (units (unkno wn) date) unknown) (unknown) (no (unknown) (unknown) RDW 13.8 (units (unkno wn) date) unknown) (unknown) (no (unknown) (unknown) RDW 14.2 (units (unkno wn) date) unknown) (unknown) (no (unknown) (unknown) RDW (units (unkno wn) date) unknown) (unknown) (no (unknown) (unknown) RSV (PCR) Negative (units (unknown) date) unknown) (unknown) (no (unknown) (unknown) RSV (PCR) (units (unkn own) date) unknown) (unknown) (no (unknown) (unknown) RUQ pain (units (unkno wn) date) unknown) (unknown) (no (unknown) (unknown) Rectal pain (units (un known) date) unknown) (unknown) (no (unknown) (unknown) Respiratory Rate (units (unknown) date) 13 16 unknown) (unknown) (no (unknown) (unknown) Respiratory Rate (units (unknown) date) 14 22 unknown) (unknown) (no (unknown) (unknown) Respiratory Rate (units (unknown) date) 18 15 unknown) (unknown) (no (unknown) (unknown) Respiratory Rate (units (unknown) date) 21 unknown) (unknown) (no (unknown) (unknown) Respiratory Rate 8 (units (unknown) date) L unknown) (unknown) (no (unknown) (unknown) Respiratory Rate 9 (units (unknown) date) L unknown) (unknown) (no (unknown) (unknown) Respiratory Rate (units (unknown) date) unknown) (unknown) (no (unknown) (unknown) Result Diagrams: (units (unknown) date) unknown) (unknown) (no (unknown) (unknown) SARS-CoV-2 (PCR) (units (unknown) date) Negative unknown) (unknown) (no (unknown) (unknown) SARS-CoV-2 (PCR) (units (unknown) date) unknown) (unknown) (no (unknown) (unknown) Signed (units (unkno wn) date) By:<Electronically unknown) signed by Cristhian Mckinnon MD> (unknown) (no (unknown) (unknown) Smoker (units (unkno wn) date) unknown) (unknown) (no (unknown) (unknown) Smoking Status: (units (unknown) date) Current every day unknown) smoker (unknown) (no (unknown) (unknown) Social History (units (unknown) date) (Reviewed 05/08/22 unknown) @ 18:26 by Marylu Arce DO) (unknown) (no (unknown) (unknown) Sodium 134 L (units (u nknown) date) unknown) (unknown) (no (unknown) (unknown) Sodium 137 (units (unk nown) date) unknown) (unknown) (no (unknown) (unknown) Sodium 143 (units (unk nown) date) unknown) (unknown) (no (unknown) (unknown) Sodium (units (unkno wn) date) unknown) (unknown) (no (unknown) (unknown) Status post (units (un known) date) cholecystectomy unknown) (unknown) (no (unknown) (unknown) Status post (units (un known) date) exploratory unknown) laparotomy (unknown) (no (unknown) (unknown) Status post (units (un known) date) rotator cuff repair unknown) (unknown) (no (unknown) (unknown) Subjective (units (unk nown) date) unknown) (unknown) (no (unknown) (unknown) Surgical History (units (unknown) date) (Reviewed 05/08/22 unknown) @ 23:30 by Anish Peoples MD) (unknown) (no (unknown) (unknown) TSH 0.57 (units (unkno wn) date) unknown) (unknown) (no (unknown) (unknown) TSH (units (unkno wn) date) unknown) (unknown) (no (unknown) (unknown) Time Spent With (units (unknown) date) Patient unknown) (unknown) (no (unknown) (unknown) Total Bilirubin (units (unknown) date) 0.8 unknown) (unknown) (no (unknown) (unknown) Total Bilirubin (units (unknown) date) unknown) (unknown) (no (unknown) (unknown) Total Protein 5.9 (units (unknown) date) L unknown) (unknown) (no (unknown) (unknown) Total Protein 8.2 (units (unknown) date) unknown) (unknown) (no (unknown) (unknown) Total Protein (units ( unknown) date) unknown) (unknown) (no (unknown) (unknown) U Benzodiazepines (units (unknown) date) Scrn Positive H unknown) (unknown) (no (unknown) (unknown) U Benzodiazepines (units (unknown) date) Scrn unknown) (unknown) (no (unknown) (unknown) U Marijuana (THC) (units (unknown) date) Screen Negative unknown) (unknown) (no (unknown) (unknown) U Marijuana (THC) (units (unknown) date) Screen unknown) (unknown) (no (unknown) (unknown) U Methamphetamines (units (unknown) date) Scrn Negative unknown) (unknown) (no (unknown) (unknown) U Methamphetamines (units (unknown) date) Scrn unknown) (unknown) (no (unknown) (unknown) U Opiates 300ng/mL (units (unknown) date) cut Negative unknown) (unknown) (no (unknown) (unknown) U Opiates 300ng/mL (units (unknown) date) cut unknown) (unknown) (no (unknown) (unknown) U Tricyclic (units (un known) date) Antidepress unknown) Negative (unknown) (no (unknown) (unknown) U Tricyclic (units (un known) date) Antidepress unknown) (unknown) (no (unknown) (unknown) Ur Amphetamines (units (unknown) date) Screen Negative unknown) (unknown) (no (unknown) (unknown) Ur Amphetamines (units (unknown) date) Screen unknown) (unknown) (no (unknown) (unknown) Ur Barbiturates (units (unknown) date) Screen Negative unknown) (unknown) (no (unknown) (unknown) Ur Barbiturates (units (unknown) date) Screen unknown) (unknown) (no (unknown) (unknown) Ur Culture (units (unk nown) date) Indicated? Cult not unknown) indicated (unknown) (no (unknown) (unknown) Ur Culture (units (unk nown) date) Indicated? unknown) (unknown) (no (unknown) (unknown) Ur MDMA Scrn (units (u nknown) date) (Ecstasy) Negative unknown) (unknown) (no (unknown) (unknown) Ur MDMA Scrn (units (u nknown) date) (Ecstasy) unknown) (unknown) (no (unknown) (unknown) Ur Oxycodone (units (u nknown) date) Screen Positive H unknown) (unknown) (no (unknown) (unknown) Ur Oxycodone (units (u nknown) date) Screen unknown) (unknown) (no (unknown) (unknown) Ur Phencyclidine (units (unknown) date) Scrn Negative unknown) (unknown) (no (unknown) (unknown) Ur Phencyclidine (units (unknown) date) Scrn unknown) (unknown) (no (unknown) (unknown) Ur Transition (units ( unknown) date) Epith Cell 0-1/hpf unknown) (unknown) (no (unknown) (unknown) Ur Transition (units ( unknown) date) Epith Cell unknown) (unknown) (no (unknown) (unknown) Urine Bacteria (units (unknown) date) None seen unknown) (unknown) (no (unknown) (unknown) Urine Bacteria (units (unknown) date) unknown) (unknown) (no (unknown) (unknown) Urine Cocaine (units ( unknown) date) Screen Negative unknown) (unknown) (no (unknown) (unknown) Urine Cocaine (units ( unknown) date) Screen unknown) (unknown) (no (unknown) (unknown) Urine Methadone (units (unknown) date) Screen Negative unknown) (unknown) (no (unknown) (unknown) Urine Methadone (units (unknown) date) Screen unknown) (unknown) (no (unknown) (unknown) Urine RBC 0-1/hpf (units (unknown) date) unknown) (unknown) (no (unknown) (unknown) Urine RBC (units (unkn own) date) unknown) (unknown) (no (unknown) (unknown) Urine WBC None (units (unknown) date) seen unknown) (unknown) (no (unknown) (unknown) Urine WBC (units (unkn own) date) unknown) (unknown) (no (unknown) (unknown) VBG Base Excess (units (unknown) date) -12.0 L unknown) (unknown) (no (unknown) (unknown) VBG Base Excess (units (unknown) date) unknown) (unknown) (no (unknown) (unknown) VBG HCO3 14 L (units ( unknown) date) unknown) (unknown) (no (unknown) (unknown) VBG HCO3 (units (unkno wn) date) unknown) (unknown) (no (unknown) (unknown) VBG O2 Saturation (units (unknown) date) 67 L unknown) (unknown) (no (unknown) (unknown) VBG O2 Saturation (units (unknown) date) unknown) (unknown) (no (unknown) (unknown) VBG Total CO2 15 L (units (unknown) date) unknown) (unknown) (no (unknown) (unknown) VBG Total CO2 (units ( unknown) date) unknown) (unknown) (no (unknown) (unknown) VBG pCO2 26.8 L (units (unknown) date) unknown) (unknown) (no (unknown) (unknown) VBG pCO2 (units (unkno wn) date) unknown) (unknown) (no (unknown) (unknown) VBG pH 7.33 (units (un known) date) unknown) (unknown) (no (unknown) (unknown) VBG pH (units (unkno wn) date) unknown) (unknown) (no (unknown) (unknown) VBG pO2 36 (units (unk nown) date) unknown) (unknown) (no (unknown) (unknown) VBG pO2 (units (unkno wn) date) unknown) (unknown) (no (unknown) (unknown) Vital Signs (units (un known) date) unknown) (unknown) (no (unknown) (unknown) WBC 11.2 H (units (unk nown) date) unknown) (unknown) (no (unknown) (unknown) WBC 22.1 H (units (unk nown) date) unknown) (unknown) (no (unknown) (unknown) WBC 8.3 (units (unkno wn) date) unknown) (unknown) (no (unknown) (unknown) WBC (units (unkno wn) date) unknown) (unknown) (no (unknown) (unknown) [Embedded Image (units (unknown) date) Not Available] unknown) (unknown) (no (unknown) (unknown) abdomen/pelvis (units (unknown) date) showed mild unknown) esophageal wall thickening, mild colon wall (unknown) (no (unknown) (unknown) abdominal pain and (units (unknown) date) headaches. He is unknown) also going through alcohol withdrawal. CT (unknown) (no (unknown) (unknown) alcohol intake: (units (unknown) date) current unknown) (unknown) (no (unknown) (unknown) feels shaky and (units (unknown) date) sweaty. unknown) (unknown) (no (unknown) (unknown) findings (units (unkno wn) date) unknown) (unknown) (no (unknown) (unknown) for migraine vs (units (unknown) date) cluster, unlikely unknown) meningitis (unknown) (no (unknown) (unknown) household members: (units (unknown) date) spouse unknown) (unknown) (no (unknown) (unknown) marital status: (units (unknown) date) unknown) (unknown) (no (unknown) (unknown) presentation is (units (unknown) date) more consistent unknown) with dehydration and ETOH withdrawal (unknown) (no (unknown) (unknown) substance use (units ( unknown) date) type: does not use unknown) (unknown) (no (unknown) (unknown) thickening and (units (unknown) date) hepatic steatosis. unknown) (unknown) (no (unknown) (unknown) today; this time (units (unknown) date) is exclusive of unknown) procedural time. Result panel 271 (unknown) (no date) (unknown) (unknown) 135 u/l (unkn own) Result panel 272 (unknown) (no date) (unknown) (unknown) (no value) (units (un known) unknown) (unknown) (no date) (unknown) (unknown) NO GROWTH (units (unk nown) AFTER 24 unknown) HOURS Result panel 273 (unknown) (no date) (unknown) (unknown) Negative for (units ( unknown) MRSA unknown) Result panel 274 (unknown) (no date) (unknown) (unknown) 0 /ul (unkn own) (unknown) (no date) (unknown) (unknown) 0 /ul (unkn own) (unknown) (no date) (unknown) (unknown) 0.2 % (unkn own) (unknown) (no date) (unknown) (unknown) 0.3 % (unkn own) (unknown) (no date) (unknown) (unknown) 10.2 g/dl (unkn own) (unknown) (no date) (unknown) (unknown) 14.0 % (unkn own) (unknown) (no date) (unknown) (unknown) 160 x10 3/ul (unkn own) (unknown) (no date) (unknown) (unknown) 1800 /ul (unkn own) (unknown) (no date) (unknown) (unknown) 28.5 % (unkn own) (unknown) (no date) (unknown) (unknown) 29.8 % (unkn own) (unknown) (no date) (unknown) (unknown) 3.16 x10 6/ul (unkn own) (unknown) (no date) (unknown) (unknown) 300 /ul (unkn own) (unknown) (no date) (unknown) (unknown) 32.3 pg (unkn own) (unknown) (no date) (unknown) (unknown) 34.2 % (unkn own) (unknown) (no date) (unknown) (unknown) 4.7 % (unkn own) (unknown) (no date) (unknown) (unknown) 4200 /ul (unkn own) (unknown) (no date) (unknown) (unknown) 6.3 x10 3/ul (unkn own) (unknown) (no date) (unknown) (unknown) 66.3 % (unkn own) (unknown) (no date) (unknown) (unknown) 94.6 fl (unkn own) Result panel 275 (unknown) (no date) (unknown) (unknown) > 60 ml/min (unkn own) (unknown) (no date) (unknown) (unknown) > 60 ml/min (unkn own) (unknown) (no date) (unknown) (unknown) 0.74 mg/dl (unkn own) (unknown) (no date) (unknown) (unknown) 1.4 mg/dl (unkn own) (unknown) (no date) (unknown) (unknown) 102 mmol/l (unkn own) (unknown) (no date) (unknown) (unknown) 127 mg/dl (unkn own) (unknown) (no date) (unknown) (unknown) 127 mg/dl (unkn own) (unknown) (no date) (unknown) (unknown) 135 mmol/l (unkn own) (unknown) (no date) (unknown) (unknown) 29 mmol/l (unkn own) (unknown) (no date) (unknown) (unknown) 3 mg/dl (unkn own) (unknown) (no date) (unknown) (unknown) 3.1 mmol/l (unkn own) (unknown) (no date) (unknown) (unknown) 4.1 (units unknown) (unknown) (unknown) (no date) (unknown) (unknown) 7.6 mg/dl (unkn own) Result panel 276 (unknown) (no (unknown) (unknown) (no value) (units (unk nown) date) unknown) (unknown) (no (unknown) (unknown) (past 8 hours): (units (unknown) date) unknown) (unknown) (no (unknown) (unknown) -05/09 (units (unkno wn) date) discontinued unknown) levaquin/flagyl for empiric antibiotics (unknown) (no (unknown) (unknown) -CT head showed (units (unknown) date) no acute process unknown) (unknown) (no (unknown) (unknown) -CT scan showed (units (unknown) date) abnormalities unknown) (unknown) (no (unknown) (unknown) -MVI, folate (units (u nknown) date) unknown) (unknown) (no (unknown) (unknown) -SIRS positive (units (unknown) date) with tachycardia, unknown) tachypnea and elevated white count (unknown) (no (unknown) (unknown) -SW eval, patient (units (unknown) date) interested in unknown) detox (unknown) (no (unknown) (unknown) -blood cultures (units (unknown) date) pending unknown) (unknown) (no (unknown) (unknown) -chest xray and (units (unknown) date) UA with no unknown) evidence of acute infection (unknown) (no (unknown) (unknown) -colitis is (units (un known) date) questionably unknown) infection (unknown) (no (unknown) (unknown) -d5ns for fluids (units (unknown) date) due to likely unknown) alcoholic ketoacidosis (unknown) (no (unknown) (unknown) -did get 390mg of (units (unknown) date) phenobarb in ED unknown) (unknown) (no (unknown) (unknown) -discontinued PPI (units (unknown) date) unknown) (unknown) (no (unknown) (unknown) -discontinued (units ( unknown) date) antibiotics as low unknown) likelihood infectious etiology (unknown) (no (unknown) (unknown) -discontinued (units ( unknown) date) antibiotics as unknown) there is no obvious infectious source and (unknown) (no (unknown) (unknown) -endoscopy not (units (unknown) date) indicated at this unknown) time (unknown) (no (unknown) (unknown) -for now continue (units (unknown) date) IV fluids unknown) (unknown) (no (unknown) (unknown) -hgb normal on (units (unknown) date) arrival unknown) (unknown) (no (unknown) (unknown) -if headache not (units (unknown) date) improved with unknown) treatment of withdrawal will need further workup (unknown) (no (unknown) (unknown) -improving with (units (unknown) date) fluids, unknown) antibiotics, and withdrawal meds (unknown) (no (unknown) (unknown) -initial bicarb (units (unknown) date) on bmp is 10 unknown) (unknown) (no (unknown) (unknown) -initial lactate (units (unknown) date) of 7, improved to unknown) 4.3 with fluids, continue to trend (unknown) (no (unknown) (unknown) -lactate and (units (u nknown) date) ketones elevated unknown) (unknown) (no (unknown) (unknown) -librium added (units (unknown) date) with plan for unknown) outpatient taper once discharged (unknown) (no (unknown) (unknown) -no diarrhea at (units (unknown) date) this time unknown) (unknown) (no (unknown) (unknown) -no vomiting in (units (unknown) date) ED unknown) (unknown) (no (unknown) (unknown) -ordered for CIWA (units (unknown) date) protocol with unknown) ativan (unknown) (no (unknown) (unknown) -ordered for high (units (unknown) date) dose thiamine unknown) (unknown) (no (unknown) (unknown) -ordered high (units ( unknown) date) dose thiamine, unknown) plan for 500mg TID for 2 days (unknown) (no (unknown) (unknown) -possible colitis (units (unknown) date) and esophagitis unknown) noted on CT scan-these are nonspecific (unknown) (no (unknown) (unknown) -procal initially (units (unknown) date) 0.31 unknown) (unknown) (no (unknown) (unknown) -suspect (units (unkno wn) date) alcoholic unknown) ketoacidosis (unknown) (no (unknown) (unknown) -suspect (units (unkno wn) date) esophagitis may be unknown) secondary to vomiting (unknown) (no (unknown) (unknown) -suspect (units (unkno wn) date) secondary to unknown) alcohol abuse (unknown) (no (unknown) (unknown) -suspect (units (unkno wn) date) secondary to unknown) withdrawal vs infection (unknown) (no (unknown) (unknown) -suspect (units (unkno wn) date) secondary to unknown) withdrawal (unknown) (no (unknown) (unknown) -treat alcohol (units (unknown) date) abuse as above unknown) (unknown) (no (unknown) (unknown) -trend hemoglobin (units (unknown) date) expect it will unknown) drop with hydration (unknown) (no (unknown) (unknown) -vbg showed pH of (units (unknown) date) 7.33, nearly unknown) normal (unknown) (no (unknown) (unknown) -zofran PRN for (units (unknown) date) symptoms unknown) (unknown) (no (unknown) (unknown) 05/09/22 05/09/22 (units (unknown) date) 05/10/22 unknown) (unknown) (no (unknown) (unknown) 05/10/22 05/10/22 (units (unknown) date) unknown) (unknown) (no (unknown) (unknown) 05/10/22 04:09 (units (unknown) date) unknown) (unknown) (no (unknown) (unknown) 05/10/22 1832 (units ( unknown) date) unknown) (unknown) (no (unknown) (unknown) 05/10/22 (units (unkno wn) date) unknown) (unknown) (no (unknown) (unknown) [id number] (units (unkno wn) date) unknown) (unknown) (no (unknown) (unknown) 04:09 04:09 (units (un known) date) unknown) (unknown) (no (unknown) (unknown) 05:57 13:30 04:09 (units (unknown) date) unknown) (unknown) (no (unknown) (unknown) 1. Alcohol (units (unk nown) date) withdrawal and unknown) alcohol abuse (unknown) (no (unknown) (unknown) 11:44 05/10/22 (units (unknown) date) unknown) (unknown) (no (unknown) (unknown) 12:00 05/10/22 (units (unknown) date) unknown) (unknown) (no (unknown) (unknown) 12:00 (units (unkno wn) date) unknown) (unknown) (no (unknown) (unknown) 16:00 05/10/22 (units (unknown) date) unknown) (unknown) (no (unknown) (unknown) 16:00 (units (unkno wn) date) unknown) (unknown) (no (unknown) (unknown) 16:05 05/10/22 (units (unknown) date) unknown) (unknown) (no (unknown) (unknown) 17:57 (units (unkno wn) date) unknown) (unknown) (no (unknown) (unknown) 2. Possible (units (un known) date) severe sepsis, unknown) ruled out (unknown) (no (unknown) (unknown) 3. Vomiting, (units (u nknown) date) question bloody, unknown) now resolved (unknown) (no (unknown) (unknown) 4. Acidosis (units (un known) date) unknown) (unknown) (no (unknown) (unknown) 6. Possible (units (un known) date) esophagitis/coliti unknown) s, ruled out (unknown) (no (unknown) (unknown) 7. Sinus (units (unkno wn) date) tachycardia unknown) (unknown) (no (unknown) (unknown) 8. Headache, (units (u nknown) date) improving unknown) (unknown) (no (unknown) (unknown) Abdomen: Soft, (units (unknown) date) tender across mid unknown) abdomen (unknown) (no (unknown) (unknown) Age/Sex: 56 / M (units (unknown) date) unknown) (unknown) (no (unknown) (unknown) Alcoholism (units (unk nown) date) unknown) (unknown) (no (unknown) (unknown) Assessment + Plan (units (unknown) date) narrative: unknown) (unknown) (no (unknown) (unknown) Assessment + Plan (units (unknown) date) unknown) (unknown) (no (unknown) (unknown) BUN 3 L (units (unkno wn) date) unknown) (unknown) (no (unknown) (unknown) BUN (units (unkno wn) date) unknown) (unknown) (no (unknown) (unknown) BUN/Creatinine (units (unknown) date) Ratio 4.1 L unknown) (unknown) (no (unknown) (unknown) BUN/Creatinine (units (unknown) date) Ratio unknown) (unknown) (no (unknown) (unknown) Baso # (Auto) 0 (units (unknown) date) unknown) (unknown) (no (unknown) (unknown) Baso # (Auto) (units ( unknown) date) unknown) (unknown) (no (unknown) (unknown) Baso % (Auto) 0.3 (units (unknown) date) unknown) (unknown) (no (unknown) (unknown) Baso % (Auto) (units ( unknown) date) unknown) (unknown) (no (unknown) (unknown) Blood Pressure (units (unknown) date) 124/66 unknown) (unknown) (no (unknown) (unknown) Blood Pressure (units (unknown) date) 131/79 unknown) (unknown) (no (unknown) (unknown) Blood Pressure (units (unknown) date) 131/89 124/66 unknown) (unknown) (no (unknown) (unknown) CODE: Full (units (unk nown) date) unknown) (unknown) (no (unknown) (unknown) Calcium 7.6 L (units ( unknown) date) unknown) (unknown) (no (unknown) (unknown) Calcium (units (unkno wn) date) unknown) (unknown) (no (unknown) (unknown) Carbon Dioxide 29 (units (unknown) date) unknown) (unknown) (no (unknown) (unknown) Carbon Dioxide (units (unknown) date) unknown) (unknown) (no (unknown) (unknown) Chloride 102 (units (u nknown) date) unknown) (unknown) (no (unknown) (unknown) Chloride (units (unkno wn) date) unknown) (unknown) (no (unknown) (unknown) Chronic back pain (units (unknown) date) unknown) (unknown) (no (unknown) (unknown) Creatinine 0.74 (units (unknown) date) unknown) (unknown) (no (unknown) (unknown) Creatinine (units (unk nown) date) unknown) (unknown) (no (unknown) (unknown) Critical Care (units ( unknown) date) time: unknown) (unknown) (no (unknown) (unknown) : 1965 (units (unknown) date) Acct:[id number] unknown) (unknown) (no (unknown) (unknown) Date Patient (units (u nknown) date) Seen: 05/10/22 unknown) (unknown) (no (unknown) (unknown) Date of Service: (units (unknown) date) 05/08/22 unknown) (unknown) (no (unknown) (unknown) Degenerative disc (units (unknown) date) disease unknown) (unknown) (no (unknown) (unknown) Dispo: Home on (units (unknown) date) 05/11. unknown) (unknown) (no (unknown) (unknown) Eos # (Auto) 0 (units (unknown) date) unknown) (unknown) (no (unknown) (unknown) Eos # (Auto) (units (u nknown) date) unknown) (unknown) (no (unknown) (unknown) Eos % (Auto) 0.2 (units (unknown) date) L unknown) (unknown) (no (unknown) (unknown) Eos % (Auto) (units (u nknown) date) unknown) (unknown) (no (unknown) (unknown) Estimated GFR > (units (unknown) date) 60 unknown) (unknown) (no (unknown) (unknown) Estimated GFR (units ( unknown) date) unknown) (unknown) (no (unknown) (unknown) Exam Narrative: (units (unknown) date) unknown) (unknown) (no (unknown) (unknown) Exam (units (unkno wn) date) unknown) (unknown) (no (unknown) (unknown) Extremities: No (units (unknown) date) edema unknown) (unknown) (no (unknown) (unknown) Facet (units (unkno wn) date) arthropathy, unknown) lumbar (unknown) (no (unknown) (unknown) Family History (units (unknown) date) (Reviewed 05/08/22 unknown) @ 23:30 by Anish Peoples MD) (unknown) (no (unknown) (unknown) [place] (units (unkno wn) date) unknown) (unknown) (no (unknown) (unknown) Gait instability (units (unknown) date) unknown) (unknown) (no (unknown) (unknown) General: Alert (units (unknown) date) and cooperative, unknown) tremulous and anxious (unknown) (no (unknown) (unknown) Glucose 127 H (units ( unknown) date) unknown) (unknown) (no (unknown) (unknown) Glucose (units (unkno wn) date) unknown) (unknown) (no (unknown) (unknown) Hct 29.8 L (units (unk nown) date) unknown) (unknown) (no (unknown) (unknown) Hct (units (unkno wn) date) unknown) (unknown) (no (unknown) (unknown) Heart: Regular (units (unknown) date) rhythm unknown) (unknown) (no (unknown) (unknown) Hepatic steatosis (units (unknown) date) unknown) (unknown) (no (unknown) (unknown) Herniated nucleus (units (unknown) date) pulposus, L4-5 unknown) (unknown) (no (unknown) (unknown) Hgb 10.2 L (units (unk nown) date) unknown) (unknown) (no (unknown) (unknown) Hgb (units (unkno wn) date) unknown) (unknown) (no (unknown) (unknown) History of (units (unk nown) date) colostomy reversal unknown) (unknown) (no (unknown) (unknown) I spent a total (units (unknown) date) of [] minutes of unknown) critical care time on this patient's care (unknown) (no (unknown) (unknown) Interval history: (units (unknown) date) unknown) (unknown) (no (unknown) (unknown) [facility] (units (unknown) date) [address] unknown) [place] [address] (unknown) (no (unknown) (unknown) Laboratory (units (unk nown) date) Results - last unknown) hr (unknown) (no (unknown) (unknown) Labs (units (unkno wn) date) unknown) (unknown) (no (unknown) (unknown) Labs: (units (unkno wn) date) unknown) (unknown) (no (unknown) (unknown) Lipase 135 (units (unk nown) date) unknown) (unknown) (no (unknown) (unknown) Lipase (units (unkno wn) date) unknown) (unknown) (no (unknown) (unknown) Lungs: Clear (units (u nknown) date) unknown) (unknown) (no (unknown) (unknown) Lymph # (Auto) (units (unknown) date) 1800 unknown) (unknown) (no (unknown) (unknown) Lymph # (Auto) (units (unknown) date) unknown) (unknown) (no (unknown) (unknown) Lymph % (Auto) (units (unknown) date) 28.5 unknown) (unknown) (no (unknown) (unknown) Lymph % (Auto) (units (unknown) date) unknown) (unknown) (no (unknown) (unknown) MCH 32.3 (units (unkno wn) date) unknown) (unknown) (no (unknown) (unknown) MCH (units (unkno wn) date) unknown) (unknown) (no (unknown) (unknown) MCHC 34.2 (units (unkn own) date) unknown) (unknown) (no (unknown) (unknown) MCHC (units (unkno wn) date) unknown) (unknown) (no (unknown) (unknown) MCV 94.6 (units (unkno wn) date) unknown) (unknown) (no (unknown) (unknown) MCV (units (unkno wn) date) unknown) (unknown) (no (unknown) (unknown) Medical History (units (unknown) date) unknown) (unknown) (no (unknown) (unknown) Melanotic stools (units (unknown) date) unknown) (unknown) (no (unknown) (unknown) [place] # (Auto) 300 (units (unknown) date) unknown) (unknown) (no (unknown) (unknown) [place] # (Auto) (units ( unknown) date) unknown) (unknown) (no (unknown) (unknown) [place] % (Auto) 4.7 (units (unknown) date) unknown) (unknown) (no (unknown) (unknown) [place] % (Auto) (units ( unknown) date) unknown) (unknown) (no (unknown) (unknown) Narrative (units (unkn own) date) unknown) (unknown) (no (unknown) (unknown) Nasal Screen MRSA (units (unknown) date) (PCR) Negative for unknown) mrsa (unknown) (no (unknown) (unknown) Nasal Screen MRSA (units (unknown) date) (PCR) unknown) (unknown) (no (unknown) (unknown) Neurological: No (units (unknown) date) deficits unknown) (unknown) (no (unknown) (unknown) Neut # (Auto) (units ( unknown) date) 4200 unknown) (unknown) (no (unknown) (unknown) Neut # (Auto) (units ( unknown) date) unknown) (unknown) (no (unknown) (unknown) Neut % (Auto) (units ( unknown) date) 66.3 unknown) (unknown) (no (unknown) (unknown) Neut % (Auto) (units ( unknown) date) unknown) (unknown) (no (unknown) (unknown) Objective (units (unkn own) date) unknown) (unknown) (no (unknown) (unknown) Other No (units (unkno wn) date) pertinent family unknown) history in first degree relatives (unknown) (no (unknown) (unknown) Oxygen Delivery (units (unknown) date) Method Room Air unknown) (unknown) (no (unknown) (unknown) Oxygen Delivery (units (unknown) date) Method unknown) (unknown) (no (unknown) (unknown) Oxygen Flow Rate (units (unknown) date) 0 unknown) (unknown) (no (unknown) (unknown) Oxygen Flow Rate (units (unknown) date) unknown) (unknown) (no (unknown) (unknown) PFSH (units (unkno wn) date) unknown) (unknown) (no (unknown) (unknown) Patient still (units ( unknown) date) having tremors unknown) today with anxiety and nausea. Says the ativan (unknown) (no (unknown) (unknown) Patient: (units (unkno wn) date) Sky Gaffney unknown) MR#: [id number] (unknown) (no (unknown) (unknown) Phosphorus 1.4 L (units (unknown) date) unknown) (unknown) (no (unknown) (unknown) Phosphorus (units (unk nown) date) unknown) (unknown) (no (unknown) (unknown) Plt Count 160 (units ( unknown) date) unknown) (unknown) (no (unknown) (unknown) Plt Count (units (unkn own) date) unknown) (unknown) (no (unknown) (unknown) Potassium 3.1 L (units (unknown) date) unknown) (unknown) (no (unknown) (unknown) Potassium (units (unkn own) date) unknown) (unknown) (no (unknown) (unknown) Progress Note (units ( unknown) date) unknown) (unknown) (no (unknown) (unknown) Provider: (units (unkn own) date) Thomas Chacon unknown) D.O. (unknown) (no (unknown) (unknown) Proxy: Bing (units (un known) date) Schribner, spouse unknown) (unknown) (no (unknown) (unknown) Pulse Oximetry 97 (units (unknown) date) 100 unknown) (unknown) (no (unknown) (unknown) Pulse Oximetry 98 (units (unknown) date) 98 unknown) (unknown) (no (unknown) (unknown) Pulse Oximetry (units (unknown) date) unknown) (unknown) (no (unknown) (unknown) Pulse Rate 71 82 (units (unknown) date) unknown) (unknown) (no (unknown) (unknown) Pulse Rate 80 (units ( unknown) date) unknown) (unknown) (no (unknown) (unknown) Pulse Rate 87 75 (units (unknown) date) unknown) (unknown) (no (unknown) (unknown) RBC 3.16 L (units (unk nown) date) unknown) (unknown) (no (unknown) (unknown) RBC (units (unkno wn) date) unknown) (unknown) (no (unknown) (unknown) RDW 14.0 (units (unkno wn) date) unknown) (unknown) (no (unknown) (unknown) RDW (units (unkno wn) date) unknown) (unknown) (no (unknown) (unknown) RUQ pain (units (unkno wn) date) unknown) (unknown) (no (unknown) (unknown) Rectal pain (units (un known) date) unknown) (unknown) (no (unknown) (unknown) Respiratory Rate (units (unknown) date) 16 17 unknown) (unknown) (no (unknown) (unknown) Respiratory Rate (units (unknown) date) 17 unknown) (unknown) (no (unknown) (unknown) Respiratory Rate (units (unknown) date) 18 18 unknown) (unknown) (no (unknown) (unknown) Result Diagrams: (units (unknown) date) unknown) (unknown) (no (unknown) (unknown) Signed (units (unkno wn) date) By:<Electronically unknown) signed by Thomas Chacon D.O.> (unknown) (no (unknown) (unknown) Smoker (units (unkno wn) date) unknown) (unknown) (no (unknown) (unknown) Smoking Status: (units (unknown) date) Current every day unknown) smoker (unknown) (no (unknown) (unknown) Social History (units (unknown) date) (Reviewed 05/08/22 unknown) @ 18:26 by Marylu Arce DO) (unknown) (no (unknown) (unknown) Sodium 135 L (units (u nknown) date) unknown) (unknown) (no (unknown) (unknown) Sodium (units (unkno wn) date) unknown) (unknown) (no (unknown) (unknown) Status post (units (un known) date) cholecystectomy unknown) (unknown) (no (unknown) (unknown) Status post (units (un known) date) exploratory unknown) laparotomy (unknown) (no (unknown) (unknown) Status post (units (un known) date) rotator cuff unknown) repair (unknown) (no (unknown) (unknown) Subjective (units (unk nown) date) unknown) (unknown) (no (unknown) (unknown) Surgical History (units (unknown) date) (Reviewed 05/08/22 unknown) @ 23:30 by Anish Peoples MD) (unknown) (no (unknown) (unknown) Temperature 98.2 (units (unknown) date) F unknown) (unknown) (no (unknown) (unknown) Temperature 98.3 (units (unknown) date) F unknown) (unknown) (no (unknown) (unknown) Temperature (units (un known) date) unknown) (unknown) (no (unknown) (unknown) Time Spent With (units (unknown) date) Patient unknown) (unknown) (no (unknown) (unknown) Vital Signs (units (un known) date) unknown) (unknown) (no (unknown) (unknown) WBC 6.3 (units (unkno wn) date) unknown) (unknown) (no (unknown) (unknown) WBC (units (unkno wn) date) unknown) (unknown) (no (unknown) (unknown) [Embedded Image (units (unknown) date) Not Available] unknown) (unknown) (no (unknown) (unknown) alcohol intake: (units (unknown) date) current unknown) (unknown) (no (unknown) (unknown) findings (units (unkno wn) date) unknown) (unknown) (no (unknown) (unknown) for migraine vs (units (unknown) date) cluster, 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 (units ( unknown) date) Librium added to unknown) bridge in between ativan doses. (unknown) (no (unknown) (unknown) substance use (units ( unknown) date) type: does not use unknown) (unknown) (no (unknown) (unknown) today; this time (units (unknown) date) is exclusive of unknown) procedural time. Result panel 277 (unknown) (no date) (unknown) (unknown) (no value) (units (un known) unknown) (unknown) (no date) (unknown) (unknown) NO GROWTH (units (unk nown) AFTER 48 unknown) HOURS Result panel 278 (unknown) (no date) (unknown) (unknown) > 60 ml/min (unkn own) (unknown) (no date) (unknown) (unknown) > 60 ml/min (unkn own) (unknown) (no date) (unknown) (unknown) < 2 mg/dl (unkn own) (unknown) (no date) (unknown) (unknown) 0.63 mg/dl (unkn own) (unknown) (no date) (unknown) (unknown) 102 mmol/l (unkn own) (unknown) (no date) (unknown) (unknown) 112 mg/dl (unkn own) (unknown) (no date) (unknown) (unknown) 112 mg/dl (unkn own) (unknown) (no date) (unknown) (unknown) 137 mmol/l (unkn own) (unknown) (no date) (unknown) (unknown) 2.9 mmol/l (unkn own) (unknown) (no date) (unknown) (unknown) 3.1 mg/dl (unkn own) (unknown) (no date) (unknown) (unknown) 3.1 mg/dl (unkn own) (unknown) (no date) (unknown) (unknown) 3.2 (units unknown) (unknown) (unknown) (no date) (unknown) (unknown) 31 mmol/l (unkn own) (unknown) (no date) (unknown) (unknown) 7.4 mg/dl (unkn own) Result panel 279 (unknown) (no date) (unknown) (unknown) 1.7 mg/dl (unkn own) (unknown) (no date) (unknown) (unknown) 1.7 mg/dl (unkn own) Result panel 280 (unknown) (no date) (unknown) (unknown) > 60 ml/min (unkn own) (unknown) (no date) (unknown) (unknown) > 60 ml/min (unkn own) (unknown) (no date) (unknown) (unknown) 0.63 mg/dl (unkn own) (unknown) (no date) (unknown) (unknown) 101 mmol/l (unkn own) (unknown) (no date) (unknown) (unknown) 107 mg/dl (unkn own) (unknown) (no date) (unknown) (unknown) 107 mg/dl (unkn own) (unknown) (no date) (unknown) (unknown) 136 mmol/l (unkn own) (unknown) (no date) (unknown) (unknown) 2 mg/dl (unkn own) (unknown) (no date) (unknown) (unknown) 29 mmol/l (unkn own) (unknown) (no date) (unknown) (unknown) 3.2 (units unknown) (unknown) (unknown) (no date) (unknown) (unknown) 3.6 mmol/l (unkn own) (unknown) (no date) (unknown) (unknown) 8.3 mg/dl (unkn own) Result panel 281 (unknown) (no (unknown) (unknown) (no value) (units (unk nown) date) unknown) (unknown) (no (unknown) (unknown) (past 8 hours): (units (unknown) date) unknown) (unknown) (no (unknown) (unknown) -05/09 (units (unkno wn) date) discontinued unknown) levaquin/flagyl for empiric antibiotics (unknown) (no (unknown) (unknown) -CT head showed no (units (unknown) date) acute process unknown) (unknown) (no (unknown) (unknown) -CT scan showed (units (unknown) date) abnormalities unknown) (unknown) (no (unknown) (unknown) -MVI, folate (units (u nknown) date) unknown) (unknown) (no (unknown) (unknown) -SIRS positive (units (unknown) date) with tachycardia, unknown) tachypnea and elevated white count (unknown) (no (unknown) (unknown) -SW eval, patient (units (unknown) date) interested in detox unknown) (unknown) (no (unknown) (unknown) -blood cultures (units (unknown) date) with no growth unknown) (unknown) (no (unknown) (unknown) -chest xray and UA (units (unknown) date) with no evidence of unknown) acute infection (unknown) (no (unknown) (unknown) -colitis is (units (un known) date) questionably unknown) infection (unknown) (no (unknown) (unknown) -continue PPI (units ( unknown) date) unknown) (unknown) (no (unknown) (unknown) -d5ns for fluids (units (unknown) date) due to likely unknown) alcoholic ketoacidosis (unknown) (no (unknown) (unknown) -did get 390mg of (units (unknown) date) phenobarb in ED unknown) (unknown) (no (unknown) (unknown) -discontinued (units ( unknown) date) antibiotics as low unknown) likelihood infectious etiology (unknown) (no (unknown) (unknown) -discontinued (units ( unknown) date) antibiotics as unknown) there is no obvious infectious source and (unknown) (no (unknown) (unknown) -endoscopy not (units (unknown) date) indicated at this unknown) time (unknown) (no (unknown) (unknown) -for now continue (units (unknown) date) IV fluids unknown) (unknown) (no (unknown) (unknown) -hgb normal on (units (unknown) date) arrival unknown) (unknown) (no (unknown) (unknown) -if headache not (units (unknown) date) improved with unknown) treatment of withdrawal will need further workup (unknown) (no (unknown) (unknown) -improving with (units (unknown) date) fluids, unknown) antibiotics, and withdrawal meds (unknown) (no (unknown) (unknown) -initial bicarb on (units (unknown) date) bmp is 10 unknown) (unknown) (no (unknown) (unknown) -initial lactate (units (unknown) date) of 7, improved to unknown) 4.3 with fluids, continue to trend (unknown) (no (unknown) (unknown) -lactate and (units (u nknown) date) ketones elevated unknown) (unknown) (no (unknown) (unknown) -librium added (units (unknown) date) with plan for unknown) outpatient taper once discharged (unknown) (no (unknown) (unknown) -no diarrhea at (units (unknown) date) this time unknown) (unknown) (no (unknown) (unknown) -no vomiting in ED (units (unknown) date) unknown) (unknown) (no (unknown) (unknown) -ordered for CIWA (units (unknown) date) protocol with unknown) ativan (unknown) (no (unknown) (unknown) -ordered for high (units (unknown) date) dose thiamine unknown) (unknown) (no (unknown) (unknown) -ordered high dose (units (unknown) date) thiamine, plan for unknown) 500mg TID for 2 days (unknown) (no (unknown) (unknown) -possible colitis (units (unknown) date) and esophagitis unknown) noted on CT scan-these are nonspecific (unknown) (no (unknown) (unknown) -procal initially (units (unknown) date) 0.31 unknown) (unknown) (no (unknown) (unknown) -sent home with (units (unknown) date) PPI trial for unknown) esophagitis (unknown) (no (unknown) (unknown) -suspect alcoholic (units (unknown) date) ketoacidosis unknown) (unknown) (no (unknown) (unknown) -suspect (units (unkno wn) date) esophagitis may be unknown) secondary to vomiting (unknown) (no (unknown) (unknown) -suspect secondary (units (unknown) date) to alcohol abuse unknown) (unknown) (no (unknown) (unknown) -suspect secondary (units (unknown) date) to withdrawal vs unknown) infection (unknown) (no (unknown) (unknown) -suspect secondary (units (unknown) date) to withdrawal unknown) (unknown) (no (unknown) (unknown) -treat alcohol (units (unknown) date) abuse as above unknown) (unknown) (no (unknown) (unknown) -trend hemoglobin (units (unknown) date) expect it will drop unknown) with hydration (unknown) (no (unknown) (unknown) -vbg showed pH of (units (unknown) date) 7.33, nearly normal unknown) (unknown) (no (unknown) (unknown) -zofran PRN for (units (unknown) date) symptoms unknown) (unknown) (no (unknown) (unknown) 05/08/22 21:18 (units (unknown) date) unknown) (unknown) (no (unknown) (unknown) 05/08/22 23:03 (units (unknown) date) unknown) (unknown) (no (unknown) (unknown) 05/10/22 04:09 (units (unknown) date) unknown) (unknown) (no (unknown) (unknown) 05/11/22 05/11/22 (units (unknown) date) 05/11/22 unknown) (unknown) (no (unknown) (unknown) 05/11/22 13:15 (units (unknown) date) unknown) (unknown) (no (unknown) (unknown) 05/11/22 1426 (units ( unknown) date) unknown) (unknown) (no (unknown) (unknown) 05/11/22 (units (unkno wn) date) unknown) (unknown) (no (unknown) (unknown) [id number] (units (unkno wn) date) unknown) (unknown) (no (unknown) (unknown) 04:12 04:12 13:15 (units (unknown) date) unknown) (unknown) (no (unknown) (unknown) 08:00 05/11/22 (units (unknown) date) unknown) (unknown) (no (unknown) (unknown) 09:31 (units (unkno wn) date) unknown) (unknown) (no (unknown) (unknown) 1 tab PO DAILY (units (unknown) date) Qty: 30 0RF unknown) (unknown) (no (unknown) (unknown) 1. Alcohol (units (unk nown) date) withdrawal and unknown) alcohol abuse (unknown) (no (unknown) (unknown) 100 mg PO BEDTIME (units (unknown) date) unknown) (unknown) (no (unknown) (unknown) 100 mg PO DAILY (units (unknown) date) Qty: 30 0RF unknown) (unknown) (no (unknown) (unknown) 12:00 05/11/22 (units (unknown) date) unknown) (unknown) (no (unknown) (unknown) 12:00 (units (unkno wn) date) unknown) (unknown) (no (unknown) (unknown) 13:06 05/11/22 (units (unknown) date) unknown) (unknown) (no (unknown) (unknown) 2. Possible severe (units (unknown) date) sepsis, ruled out unknown) (unknown) (no (unknown) (unknown) 25 mg orally 3x (units (unknown) date) daily for 1 day, unknown) then 25mg twice daily for 1 day, then 25mg (unknown) (no (unknown) (unknown) 3. Vomiting, (units (u nknown) date) question bloody, unknown) now resolved (unknown) (no (unknown) (unknown) 4 24 oz beers (units ( unknown) date) daily. His last unknown) drink was early this morning. He notes he had a (unknown) (no (unknown) (unknown) 4. Acidosis, (units (u nknown) date) resolved unknown) (unknown) (no (unknown) (unknown) 40 mg PO BID 30 (units (unknown) date) Days Qty: 60 0RF unknown) (unknown) (no (unknown) (unknown) 6. Possible (units (un known) date) esophagitis/colitis unknown) , ruled out (unknown) (no (unknown) (unknown) 7. Sinus (units (unkno wn) date) tachycardia, unknown) resolved (unknown) (no (unknown) (unknown) 8. Headache, (units (u nknown) date) improving unknown) (unknown) (no (unknown) (unknown) AST 87, ALT 36. (units (unknown) date) Lactate 7.0. Procal unknown) 0.31. UA negative. Urine drug screen (unknown) (no (unknown) (unknown) Abdomen: Soft, (units (unknown) date) tender across mid unknown) abdomen (unknown) (no (unknown) (unknown) Admitted for (units (un known) date) alcohol withdrawal unknown) and possible alcoholic ketoacidosis. Recieved IV (unknown) (no (unknown) (unknown) Age/Sex: 56 / M (units (unknown) date) unknown) (unknown) (no (unknown) (unknown) Alcoholism (units (unk nown) date) unknown) (unknown) (no (unknown) (unknown) BUN < 2 L 2 L (units ( unknown) date) unknown) (unknown) (no (unknown) (unknown) BUN/Creatinine (units (unknown) date) Ratio 3.2 L 3.2 L unknown) (unknown) (no (unknown) (unknown) Blood Pressure (units (unknown) date) 107/65 107/65 unknown) (unknown) (no (unknown) (unknown) Blood Pressure (units (unknown) date) 124/68 123/75 unknown) (unknown) (no (unknown) (unknown) CT abd and was on (units (unknown) date) abx but these were unknown) stopped as infection was thought to be low (unknown) (no (unknown) (unknown) Calcium 7.4 L 8.3 (units (unknown) date) L unknown) (unknown) (no (unknown) (unknown) Carbon Dioxide 31 (units (unknown) date) 29 unknown) (unknown) (no (unknown) (unknown) Chief complaint: (units (unknown) date) GI Bleed back pain unknown) (unknown) (no (unknown) (unknown) Chloride 102 101 (units (unknown) date) unknown) (unknown) (no (unknown) (unknown) Chronic back pain (units (unknown) date) unknown) (unknown) (no (unknown) (unknown) Comment: (units (unkno wn) date) unknown) (unknown) (no (unknown) (unknown) Consult to (units (unk nown) date) Dietitian, Adult unknown) Routine (unknown) (no (unknown) (unknown) Consults: (units (unkn own) date) unknown) (unknown) (no (unknown) (unknown) Continued (units (unkn own) date) unknown) (unknown) (no (unknown) (unknown) Lavelle Griffin, (units (unknown) date) [Primary Care unknown) Provider] - 2 Weeks (unknown) (no (unknown) (unknown) Creatinine 0.63 L (units (unknown) date) 0.63 L unknown) (unknown) (no (unknown) (unknown) : 1965 (units (unknown) date) Acct:[id number] unknown) (unknown) (no (unknown) (unknown) Date Patient Seen: (units (unknown) date) 05/11/22 unknown) (unknown) (no (unknown) (unknown) Date of Service: (units (unknown) date) 05/08/22 unknown) (unknown) (no (unknown) (unknown) Date of admission: (units (unknown) date) unknown) (unknown) (no (unknown) (unknown) Degenerative disc (units (unknown) date) disease unknown) (unknown) (no (unknown) (unknown) Discharge Data (units (unknown) date) unknown) (unknown) (no (unknown) (unknown) Discharge Date: (units (unknown) date) 05/11/22 unknown) (unknown) (no (unknown) (unknown) Discharge (units (unkn own) date) Diagnosis: unknown) (unknown) (no (unknown) (unknown) Discharge Plan (units (unknown) date) unknown) (unknown) (no (unknown) (unknown) Discharge (units (unkn own) date) Providers unknown) (unknown) (no (unknown) (unknown) Discharge Summary (units (unknown) date) unknown) (unknown) (no (unknown) (unknown) Discharge orders + (units (unknown) date) Medications unknown) (unknown) (no (unknown) (unknown) Discharge (units (unkn own) date) provider: unknown) (unknown) (no (unknown) (unknown) Estimated GFR > 60 (units (unknown) date) > 60 unknown) (unknown) (no (unknown) (unknown) Exam Narrative: (units (unknown) date) unknown) (unknown) (no (unknown) (unknown) Exam (units (unkno wn) date) unknown) (unknown) (no (unknown) (unknown) Extremities: No (units (unknown) date) edema unknown) (unknown) (no (unknown) (unknown) Facet arthropathy, (units (unknown) date) lumbar unknown) (unknown) (no (unknown) (unknown) Family History (units (unknown) date) (Reviewed 05/08/22 unknown) @ 23:30 by Anish Peoples MD) (unknown) (no (unknown) (unknown) Family history: he (units (unknown) date) denies significant unknown) alcohol abuse, cardiac history in family (unknown) (no (unknown) (unknown) Follow (units (unkno wn) date) up/Referrals: unknown) (unknown) (no (unknown) (unknown) [place] (units (unkno wn) date) unknown) (unknown) (no (unknown) (unknown) Gait instability (units (unknown) date) unknown) (unknown) (no (unknown) (unknown) General: Alert and (units (unknown) date) cooperative, unknown) improved tremors and anxiety (unknown) (no (unknown) (unknown) Glucose 112 H 107 (units (unknown) date) H unknown) (unknown) (no (unknown) (unknown) Heart: Regular (units (unknown) date) rhythm unknown) (unknown) (no (unknown) (unknown) Hepatic steatosis (units (unknown) date) unknown) (unknown) (no (unknown) (unknown) Herniated nucleus (units (unknown) date) pulposus, L4-5 unknown) (unknown) (no (unknown) (unknown) History of Present (units (unknown) date) Illness unknown) (unknown) (no (unknown) (unknown) History of (units (unk nown) date) colostomy reversal unknown) (unknown) (no (unknown) (unknown) Hospital Course (units (unknown) date) unknown) (unknown) (no (unknown) (unknown) Hospital Course: (units (unknown) date) unknown) (unknown) (no (unknown) (unknown) I've sent an (units (u nknown) date) antacid pill to unknown) take for [address] scan had some (unknown) (no (unknown) (unknown) In the ED workup (units (unknown) date) was done, vitals unknown) notable for tachycardia in 120s. Labs notable (unknown) (no (unknown) (unknown) Instructions: (units ( unknown) date) Alcohol Withdrawal, unknown) High-Potassium Diet (unknown) (no (unknown) (unknown) [facility] (units (unknown) date) [address] unknown) [place] [address] (unknown) (no (unknown) (unknown) Laboratory Results (units (unknown) date) - last 24 hr unknown) (unknown) (no (unknown) (unknown) Labs (units (unkno wn) date) unknown) (unknown) (no (unknown) (unknown) Labs: (units (unkno wn) date) unknown) (unknown) (no (unknown) (unknown) Lungs: Clear (units (u nknown) date) unknown) (unknown) (no (unknown) (unknown) Magnesium 1.7 (units ( unknown) date) unknown) (unknown) (no (unknown) (unknown) Thomas Chacon, (units (unknown) date) DO unknown) (unknown) (no (unknown) (unknown) Medical History (units (unknown) date) unknown) (unknown) (no (unknown) (unknown) Melanotic stools (units (unknown) date) unknown) (unknown) (no (unknown) (unknown) Mr. Gaffney is a (units (unknown) date) 56M with PMH unknown) alcohol abuse who presents to the hospital with (unknown) (no (unknown) (unknown) Narrative (units (unkn own) date) unknown) (unknown) (no (unknown) (unknown) Narrative: (units (unk nown) date) unknown) (unknown) (no (unknown) (unknown) Neurological: No (units (unknown) date) deficits unknown) (unknown) (no (unknown) (unknown) New (units (unkno wn) date) unknown) (unknown) (no (unknown) (unknown) Objective (units (unkn own) date) unknown) (unknown) (no (unknown) (unknown) Other No pertinent (units (unknown) date) family history in unknown) first degree relatives (unknown) (no (unknown) (unknown) Oxygen Delivery (units (unknown) date) Method Room Air unknown) (unknown) (no (unknown) (unknown) Oxygen Flow Rate 0 (units (unknown) date) unknown) (unknown) (no (unknown) (unknown) PFSH (units (unkno wn) date) unknown) (unknown) (no (unknown) (unknown) Patient (units (unkno wn) date) Disposition: Home unknown) (unknown) (no (unknown) (unknown) Patient: (units (unkno wn) date) Sky Gaffney unknown) MR#: [id number] (unknown) (no (unknown) (unknown) Phosphorus 3.1 D (units (unknown) date) unknown) (unknown) (no (unknown) (unknown) Potassium 2.9 L (units (unknown) date) 3.6 unknown) (unknown) (no (unknown) (unknown) Prescriptions: (units (unknown) date) unknown) (unknown) (no (unknown) (unknown) Primary Care (units (u nknown) date) Provider: unknown) Lavelle Griffin (unknown) (no (unknown) (unknown) Primary care (units (u nknown) date) physician: unknown) (unknown) (no (unknown) (unknown) Provider Discharge (units (unknown) date) Comment: You were unknown) admitted for alcohol withdrawal and (unknown) (no (unknown) (unknown) Provider (units (unkno wn) date) unknown) (unknown) (no (unknown) (unknown) Provider: (units (unkn own) date) Thomas Chacon unknown) D.O. (unknown) (no (unknown) (unknown) Pulse Oximetry 98 (units (unknown) date) 100 unknown) (unknown) (no (unknown) (unknown) Pulse Oximetry 98 (units (unknown) date) 99 unknown) (unknown) (no (unknown) (unknown) Pulse Rate 72 83 (units (unknown) date) unknown) (unknown) (no (unknown) (unknown) Pulse Rate 77 78 (units (unknown) date) unknown) (unknown) (no (unknown) (unknown) RUQ pain (units (unkno wn) date) unknown) (unknown) (no (unknown) (unknown) Reason For Exam: (units (unknown) date) alcohol abuse unknown) (unknown) (no (unknown) (unknown) Rectal pain (units (un known) date) unknown) (unknown) (no (unknown) (unknown) Respiratory Rate (units (unknown) date) 16 16 unknown) (unknown) (no (unknown) (unknown) Respiratory Rate (units (unknown) date) 19 17 unknown) (unknown) (no (unknown) (unknown) Result Diagrams: (units (unknown) date) unknown) (unknown) (no (unknown) (unknown) Lavelle Griffin, (units (unknown) date) unknown) (unknown) (no (unknown) (unknown) Rx Instructions: (units (unknown) date) unknown) (unknown) (no (unknown) (unknown) See Rx (units (unkno wn) date) Instructions .ROUTE unknown) .COMPLEX Qty: 5 0RF (unknown) (no (unknown) (unknown) Signed (units (unkno wn) date) By:<Electronically unknown) signed by Thomas Chacon D.O.> (unknown) (no (unknown) (unknown) Smoker (units (unkno wn) date) unknown) (unknown) (no (unknown) (unknown) Smoking Status: (units (unknown) date) Current every day unknown) smoker (unknown) (no (unknown) (unknown) Social History (units (unknown) date) (Reviewed 05/08/22 unknown) @ 18:26 by Marylu Arce DO) (unknown) (no (unknown) (unknown) Sodium 137 136 L (units (unknown) date) unknown) (unknown) (no (unknown) (unknown) Stand Alone Forms: (units (unknown) date) Patient Portal/API, unknown) Stroke Signs + Symptoms (unknown) (no (unknown) (unknown) Status post (units (un known) date) cholecystectomy unknown) (unknown) (no (unknown) (unknown) Status post (units (un known) date) exploratory unknown) laparotomy (unknown) (no (unknown) (unknown) Status post (units (un known) date) rotator cuff repair unknown) (unknown) (no (unknown) (unknown) Summary (units (unkno wn) date) unknown) (unknown) (no (unknown) (unknown) Surgical History (units (unknown) date) (Reviewed 05/08/22 unknown) @ 23:30 by Anish Peoples MD) (unknown) (no (unknown) (unknown) Temperature 98.6 F (units (unknown) date) unknown) (unknown) (no (unknown) (unknown) Temperature 98.8 F (units (unknown) date) unknown) (unknown) (no (unknown) (unknown) Time Patient Seen: (units (unknown) date) 14:17 unknown) (unknown) (no (unknown) (unknown) Time Spent with (units (unknown) date) Patient unknown) (unknown) (no (unknown) (unknown) Time spent: (units (un known) date) Greater than 30 unknown) minutes (unknown) (no (unknown) (unknown) Visit (units (unkno wn) date) Report/Discharge unknown) Packet (unknown) (no (unknown) (unknown) Vital Signs (units (un known) date) unknown) (unknown) (no (unknown) (unknown) [Embedded Image (units (unknown) date) Not Available] unknown) (unknown) (no (unknown) (unknown) abdomen/pelvis with (units (unknown) date) mild esophageal unknown) wall thickening, mild colon wall thickening, (unknown) (no (unknown) (unknown) alcohol intake: (units (unknown) date) current unknown) (unknown) (no (unknown) (unknown) and hepatic (units (un known) date) steatosis. unknown) (unknown) (no (unknown) (unknown) at bedtime for 1 (units (unknown) date) day unknown) (unknown) (no (unknown) (unknown) ativan and librium (units (unknown) date) and improved. Also unknown) high dose thiamine, MV and folate. His (unknown) (no (unknown) (unknown) been having nausea (units (unknown) date) and vomiting, he unknown) has not noted bright red blood, his vomit (unknown) (no (unknown) (unknown) bicarb improved (units (unknown) date) from 10 to 29. unknown) Initially thought to potentially have colitis on (unknown) (no (unknown) (unknown) c-spine with no (units (unknown) date) acture process. CT unknown) chest with no acute process. CT (unknown) (no (unknown) (unknown) chlordiazepoxide (units (unknown) date) HCl 25 mg Capsule unknown) (unknown) (no (unknown) (unknown) complication (units (u nknown) date) results in unknown) colostomy, now s/p reanastamosis. He states he drinks 3 (unknown) (no (unknown) (unknown) days at home. I've (units (unknown) date) also sent some unknown) vitamins to take for the next month. Also (unknown) (no (unknown) (unknown) eat which are rich (units (unknown) date) in potassium. He unknown) will f/u with PCP in 2 weeks for hospital (unknown) (no (unknown) (unknown) fall a few days (units (unknown) date) ago. He doesn't unknown) think he hit his head. He has developed (unknown) (no (unknown) (unknown) findings (units (unkno wn) date) unknown) (unknown) (no (unknown) (unknown) follow-up. (units (unk nown) date) unknown) (unknown) (no (unknown) (unknown) for WBC 22.1, hgb (units (unknown) date) 13.5, plts 306. unknown) Bicarb 10, creatinine 1.11. INR 0.9. LFTS with (unknown) (no (unknown) (unknown) for migraine vs (units (unknown) date) cluster, unlikely unknown) meningitis (unknown) (no (unknown) (unknown) has been brown. He (units (unknown) date) has no black or unknown) bloody stools. He feels shaky, anxious. He (unknown) (no (unknown) (unknown) has had withdrawal (units (unknown) date) before but never unknown) had a seizure, never been intubated. (unknown) (no (unknown) (unknown) headaches which he (units (unknown) date) says is pounding unknown) like feeling right behind his eyes. He has (unknown) (no (unknown) (unknown) household members: (units (unknown) date) spouse unknown) (unknown) (no (unknown) (unknown) improved with (units (u nknown) date) ativan and librium. unknown) I've put you on a librium taper for a few more (unknown) (no (unknown) (unknown) inflammation of the (units (unknown) date) esophagus. Try to unknown) eat foods high in potassium as you had low (unknown) (no (unknown) (unknown) levels while in (units (unknown) date) the hospital. unknown) (unknown) (no (unknown) (unknown) likelihood. His (units (unknown) date) vomiting resolved unknown) but continued to have some nausea. Sent home (unknown) (no (unknown) (unknown) marital status: (units (unknown) date) unknown) (unknown) (no (unknown) (unknown) members (units (unkno wn) date) unknown) (unknown) (no (unknown) (unknown) multivitamin with (units (unknown) date) folic acid unknown) [Tab-A-Sedrick] 400 mcg Tablet (unknown) (no (unknown) (unknown) nausea, vomiting (units (unknown) date) and headaches. He unknown) does have a history of cholecystectomy with (unknown) (no (unknown) (unknown) pantoprazole (units (u nknown) date) [Protonix] 40 mg unknown) tablet,delayed release (DR/EC) (unknown) (no (unknown) (unknown) positive oxycodone, (units (unknown) date) benzos positive. unknown) EtOH 190. CT head with no acute process. CT (unknown) (no (unknown) (unknown) potassium (units (unkno wn) date) supplementation unknown) during admission and given education sheet on foods to (unknown) (no (unknown) (unknown) presentation is (units (unknown) date) more consistent unknown) with dehydration and ETOH withdrawal (unknown) (no (unknown) (unknown) quetiapine 100 mg (units (unknown) date) tablet unknown) (unknown) (no (unknown) (unknown) substance use (units ( unknown) date) type: does not use unknown) (unknown) (no (unknown) (unknown) thiamine (units (unkno wn) date) mononitrate (vit unknown) B1) 100 mg Tablet (unknown) (no (unknown) (unknown) with protonix po (units (unknown) date) 40mg BID for 4 unknown) weeks due to esophagitis seen on CT. Received Result panel 282 (unknown) (no date) (unknown) (unknown) (no value) (units (un known) unknown) (unknown) (no date) (unknown) (unknown) NO GROWTH (units (unk nown) AFTER 72 unknown) HOURS Result panel 283 (unknown) (no date) (unknown) (unknown) (no value) (units (un known) unknown) (unknown) (no date) (unknown) (unknown) NO GROWTH (units (unk nown) AFTER 4 DAYS unknown) Result panel 284 (unknown) (no date) (unknown) (unknown) (no value) (units (un known) unknown) (unknown) (no date) (unknown) (unknown) NO GROWTH (units (unk nown) AFTER 5 DAYS unknown) Social History date description facility 2022-05-08 00:00 Smokes tobacco daily (finding) [facility] 2022-05-09 00:00 Smokes tobacco daily (finding) [facility] Vital Signs date measurement value units 2022-05-08 00:00 temperature_metric 36.89 C 2022-05-08 00:00 temperature_standard 98.4 F 2022-05-08 00:00 weight_metric 70.3 kg 2022-05-08 00:00 weight_standard 154.98 lb 2022-05-09 00:00 BP_diastolic 76 mmHg 2022-05-09 00:00 BP_systolic 135 mmHg 2022-05-09 00:00 heart_rate 77 /min 2022-05-09 00:00 height_metric 170.18 cm 2022-05-09 00:00 height_standard 67 in 2022-05-09 00:00 o2_saturation 99 % 2022-05-09 00:00 respiration_rate 35 /min 2022-05-09 00:00 weight_metric 70.3 kg 2022-05-09 00:00 weight_standard 154.98 lb 2022-05-11 00:00 BP_diastolic 78 mmHg 2022-05-11 00:00 BP_systolic 130 mmHg 2022-05-11 00:00 heart_rate 84 /min 2022-05-11 00:00 o2_saturation 99 % 2022-05-11 00:00 respiration_rate 19 /min 2022-05-11 00:00 temperature_metric 37.11 C 2022-05-11 00:00 temperature_standard 98.8 F
[2022-05-14] MEDS ORDERED: IBUPROFEN 600 MG TABLET PO STA (21:06)
[2022-05-14 21:08] VITALS: BP 113/75
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
== END 2022-05-14 21:21 | disposition home or self-care (01) ==
LOC: EDUNIT# → ED 20:50
DX: M54.9 Dorsalgia, unspecified (principal); F10.10 Alcohol abuse, uncomplicated; Y90.8 Blood alcohol level of 240 mg/100 ml or more; S60.511A Abrasion of right hand, initial encounter; X58.XXXA Exposure to other specified factors, initial encounter; M54.30 Sciatica, unspecified side; I48.91 Unspecified atrial fibrillation; F17.200 Nicotine dependence, unspecified, uncomplicated
CPT/HCPCS: 99282; A9270

== ENCOUNTER 2023-03-13 08:20 | Outpatient (CLI) | payer MEDICARE, MEDICAID | END 2023-03-13 08:21 | disposition critical access hospital (66) | LOC: EMS 08:20 | DX: R10.84 Generalized abdominal pain (principal); R11.2 Nausea with vomiting, unspecified; R19.7 Diarrhea, unspecified | CPT/HCPCS: A0425; A0427 ==

== ENCOUNTER 2023-03-13 08:41 | Inpatient (IN) | payer MEDICARE, MEDICAID ==
[2023-03-13] MEDS ORDERED: SODIUM CHLORIDE 0.9% 1,000 ML IV STA ×2 (09:01→12:11)
[2023-03-13] MEDS ORDERED: DROPERIDOL 5 MG/2 ML VIAL IVP STA (09:01)
[2023-03-13] MEDS ORDERED: HYDROmorphone 1 MG/ML CARPUJECT IVP STA (09:12)
--- NOTE | 2023-03-13 09:21 | ED Physician Documentation ---
PD HPI ABD PAIN - Stated complaint Stated Complaint: ABD PX/NVD - Chief complaint Chief Complaint: Abd Pain - History obtained from History obtained from: Patient, EMS - Additional information Additional information: The patient comes to the emergency department chief complaint of abdominal pain, nausea, and vomiting on and off since 2 days ago but constant since this morning. The patient states that for the last 2 days, he has awakened in the morning with nausea Sliv upper abdominal pain, but then feels better as the day goes on. However, this morning is worse than ever and just seems to be pe rsistent. He denies any fevers or chills. No cough or shortness of breath. He has been getting intermittent left-sided chest pain for months, mainly at rest, and states that this has not been associated with current symptoms. He denies any diaphoresis or shortness of breath during these episodes. He is not having chest pain currently. The patient states he is otherwise healthy and has never been diagnosed with any medical problems. No other complaints at this time. He does note that he was given Zofran in route and it has not changed his symptoms. PD PAST MEDICAL HISTORY - Past Medical History Past Medical History: Yes Cardiovascular: Atrial fibrillation Respiratory: None Neuro: None Endocrine/Autoimmune: None GI: GERD, Pancreatitis, Other : None HEENT: None, Other Psych: Anxiety, Other Musculoskeletal: Chronic back pain Derm: None - Past Surgical History Past Surgical History: Yes General: Cholecystectomy, Colonoscopy, Other Ortho: Rotator cuff repair HEENT: Other - Present Medications Home Medications: Ambulatory Orders Medication Instructions Recorded Confirmed Omeprazole Magnesium 20 mg PO DAILY 12/30/20 03/13/23 Quetiapine Fumarate [Seroquel] 100 mg PO QPM 12/31/20 03/13/23 LORazepam [Ativan] 1 mg PO Q6H PRN #25 tablet 08/17/21 03/13/23 HYDROcod/ACETAM 5/325 [[place] 5/325] 1 - 2 tablet PO Q6H PRN 03/13/23 03/13/23 - Allergies Allergies/Adverse Reactions: Allergies Allergy/AdvReac Type Severity Reaction Status Date / Time buspirone [From BuSpar] Allergy Unknown Verified 03/13/23 08:50 pregabalin [From Lyrica] Allergy Unknown Verified 03/13/23 08:50 Penicillins AdvReac Unknown Rash Verified 03/13/23 08:50 - Social History Does the pt smoke?: Yes Smoking Status: Current every day smoker Does the pt drink ETOH?: Yes ETOH Use: Wine, Beer Does the pt have substance abuse?: No - Immunizations Immunizations are current?: Yes - POLST Patient has POLST: No POLST Status: Full Code PD ED PE NORMAL - Vitals Vital signs reviewed: Yes - General General: Alert and oriented X 3, Well developed/nourished, Other (The patient is actively vomiting and looks miserable but otherwise in no apparent distress.) - HEENT HEENT: Atraumatic, PERRL, EOMI, Moist mucous membranes - Neck Neck: Supple, no meningeal sign - Cardiac Cardiac: RRR, No murmur - Respiratory Respiratory: No respiratory distress, Clear bilaterally - Abdomen Abdomen: Soft, Non distended, Other (Left upper quadrant tenderness, no rebound or guarding.) - Back Back: No CVA TTP - Derm Derm: Normal color, Warm and dry, No rash - Extremities Extremities: No deformity, No edema - Neuro Neuro: Alert and oriented X 3, Other (Grossly intact) - Psych Psych: Normal mood, Normal affect Results - Vitals Vitals: Vital Signs - 24 hr 03/13/23 03/13/23 03/13/23 10:55 12:55 14:00 Temperature 36.5 C 36.1 C L 35.9 C L Heart Rate 77 94 96 Respiratory 16 16 19 Rate Blood Pressure 148/84 H 182/101 H 162/89 H O2 Saturation 98 99 100 Oxygen O2 Source Room air - Labs Labs: Laboratory Tests 03/13/23 03/13/23 09:24 09:24 WBC 11.1 H RBC 4.10 L Hgb 13.4 L Hct 39.5 L MCV 96.3 H MCH 32.7 H MCHC 33.9 RDW 13.2 Plt Count 138 MPV 8.9 Neut # (Auto) 9.4 H Lymph # (Auto) 1.1 L [place] # (Auto) 0.5 Eos # (Auto) 0.0 Baso # (Auto) 0.1 Absolute Nucleated RBC 0.00 Nucleated RBC % 0.0 Sodium 140 Potassium 3.2 L Chloride 106 Carbon Dioxide 24 Anion Gap 10.0 BUN 12 Creatinine 0.7 Estimated GFR (MDRD) 116 Glucose 127 H Calcium 8.1 L Total Bilirubin 0.4 AST 59 H ALT 20 Alkaline Phosphatase 105 Total Protein 6.1 L Albumin 3.6 Globulin 2.5 Albumin/Globulin Ratio 1.4 Lipase 1428 H PD Medical Decision Making - ED course Complexity details: reviewed results, re-evaluated patient, considered differential, d/w patient ED course: The patient was worked up with laboratory studies initially and given IV fluids and droperidol, as well as Dilaudid, as he reported that neither his pain nor his nausea were better after treatment en-route. His labs showed a lipase of 1400, without significant elevation of his WBC count. His US showed an absent GB, poorly visualized pancreas, and no other concerning findings. The pt on re- evaluation stated that the analgesia had helped his pain "a little" for only a short time, and now he was very uncomfortable again. He stated the nausea medication had not helped at all. I ordered more Dilaudid and a dose of Phenergan. I also ordered CT abd pelvis, which due to a high volume of CT's ordered in the department took some hours to complete. Ultimately, however, this was done, and showed inflammation but no fluid collections in association with the pancreas. The pt was still nauseated and in pain, and I did not feel he was a good candidate for home management at this time. I spoke with Dr. Ram, who agreed to accept the pt to his service. The pt is agreeable to the plan of admission. Departure - Departure Disposition: [facility] DC/Xfer Clinical Impression: Pancreatitis, acute Qualifiers: Pancreatitis type: unspecified pancreatitis type Acute pancreatitis complication: no infection or necrosis Qualified Code(s): K85.90 - Acute pancreatitis without necrosis or infection, unspecified Condition: Serious Discharge Date/Time: 03/13/23 17:21
[2023-03-13 09:43] LABS: BASOPHILS # (AUTO) 0.1 10^3/uL (0.0-0.1); BASOPHILS % (AUTO) 0.4 %; EOSINOPHILS % (AUTO) 0.1 %; HCT - HEMATOCRIT 39.5 % (42.0-52.0); HGB - HEMOGLOBIN 13.4 g/dL (14.0-18.0); LYMPHOCYTES # (AUTO) 1.1 10^3/uL (1.5-3.5); LYMPHOCYTES % (AUTO) 9.7 %; MEAN CORPUSCULAR HEMOGLOBIN 32.7 pg (27.0-31.0); MEAN CORPUSCULAR HGB CONC 33.9 g/dL (32.0-36.0); MEAN CORPUSCULAR VOLUME 96.3 fL (80.0-94.0); MEAN PLATELET VOLUME 8.9 fL (7.4-11.4); MONOCYTES # (AUTO) 0.5 10^3/uL (0.0-1.0); MONOCYTES % (AUTO) 4.6 %; NEUTROPHILS # (AUTO) 9.4 10^3/uL (1.5-6.6); NEUTROPHILS % (AUTO) 84.8 %; PLT - PLATELET COUNT 138 10^3/uL (130-450); RED CELL DISTRIBUTION WIDTH 13.2 % (12.0-15.0); WHITE BLOOD COUNT 11.1 x10^3/uL (4.8-10.8)
[2023-03-13 09:48] LABS: ALBUMIN 3.6 g/dL (3.2-5.5); ALBUMIN/GLOBULIN RATIO 1.4 (1.0-2.2); BILIRUBIN,TOTAL 0.4 mg/dL (0.2-1.0); CALCIUM 8.1 mg/dL (8.5-10.3); CREATININE 0.7 mg/dL (0.6-1.3); POTASSIUM 3.2 mmol/L (3.5-4.5); TOTAL PROTEIN 6.1 g/dL (6.4-8.9)
--- NOTE | 2023-03-13 11:26 | Ultrasound Report ---
PROCEDURE: Abdomen Limited INDICATIONS: vomiting,abd pn, elev lipase TECHNIQUE: Real-time focused scanning was performed of the abdomen, with image documentation. COMPARISONS: 03/05/2022 CT FINDINGS: Liver measures 13 to 14 cm. Hyperechoic appearance. Gallbladder is absent. CBD is at the upper limit of normal for postcholecystectomy state, measuring 8 mm. Pancreas is not well seen. Overall exam limited by bowel gas. IMPRESSION: Hyperechoic liver, suggestive of steatosis. Limited ultrasound due to bowel gas. Pancreas is not well seen. CBD measures 8 mm, at the upper limit of normal for postcholecystectomy state. Reviewed by: Ammon Mills MD on 03/13/2023 11:25 AM PST Approved by: Ammon Mills MD on 03/13/2023 11:25 AM PST Station ID: [id number]
[2023-03-13] MEDS ORDERED: HYDROmorphone 2 MG/ML VIAL IVP STA (12:11)
[2023-03-13] MEDS ORDERED: PROMETHAZINE INJ 25 MG in SODIUM CHLORIDE 0.9% 50 ML IV STA (12:11)
--- NOTE | 2023-03-13 16:30 | CT Report ---
PROCEDURE: ABDOMEN/PELVIS W INDICATIONS: pancreatitis, increasing pain CONTRAST: 100ml omni 300 TECHNIQUE: After the administration of IV contrast, 5 mm thick sections acquired from the diaphragms to the symp hysis. 5 mm thick coronal and sagittal reformats were acquired. For radiation dose reduction, the f ollowing was used: automated exposure control, adjustment of mA and/or kV according to patient size. COMPARISON: Same-day ultrasound, 03/05/2022 CT FINDINGS: Image quality: Good Lower chest: Basal scarring/atelectasis. Patulous distal esophagus is nonspecific. Normal heart size. Solid organs: Suspected hepatic steatosis. Cholecystectomy clips. Prominent biliary tree likely withi n normal limits postcholecystectomy. No pathologic pancreatic ductal dilation. Moderate edema surrounding the pancreas, without a drainable fluid collection. No evidence of necroti c pancreatic parenchyma on this CT. No splenomegaly. No adrenal nodules. No hydronephrosis. Vessels and lymph nodes: The main portal vein is patent. No abdominal aortic aneurysm. No pathologic lymph nodes by size criteria. Prominent upper bowel lymph nodes may be reactive in this clinical sett ing. Bowel and peritoneum: No evidence of small bowel obstruction. Mild edema is seen along the left parac olic gutter. Mild to moderate wall thickening and pericolonic inflammatory changes diffusely. The jerilyn endix is nondilated. Colonic suture lines. Body wall: Unremarkable Pelvis: Bladder is mildly distended. Prostate is not well evaluated on this study. Bones: No acute or suspicious osseous finding. IMPRESSION: Moderate edematous pancreatitis changes, no evidence of necrotic parenchyma or drainable fluid collec tion at this time. The edema extends along the left paracolic gutter and left retroperitoneum. Diffuse mild to moderate changes of infectious or inflammatory colitis. Consider correlation with age -appropriate colonoscopy results. Other findings as above. Reviewed by: Ammon Mills MD on 03/13/2023 4:28 PM PST Approved by: Ammon Mills MD on 03/13/2023 4:28 PM PST Station ID: [id number]
[2023-03-13] MEDS ORDERED: LORazepam 1 MG TABLET PO PRN (17:24)
[2023-03-13] MEDS: HYDROmorphone 0.5 MG/0.5 ML SYRINGE IVP PRN (17:25)
[2023-03-13] MEDS: LACTATED RINGERS 1,000 ML IV SCH ×2 (17:26→22:10)
[2023-03-13] MEDS: SODIUM CHLORIDE FLUSH 0.9% 10 ML SYRINGE IVP SCH (17:26)
[2023-03-13] MEDS: ONDANSETRON 4 MG/2 ML VIAL IVP PRN (17:27)
--- NOTE | 2023-03-13 17:57 | HISTORY & PHYSICAL EXAMINATION ---
Chief Complaint - Chief Complaint Chief Complaint: Abdominal pain History of Present Illness - Admitted From Admitted From:: ED - History of Present Illness HPI Comment/Other: Patient is a 57-year-old male with past medical history of alcohol abuse, gallstone pancreatitis s/p complicated cholecystectomy resulting in an ileostomy with reversal, MDD, who presented to the ED due to complaints of epigastric abdominal pain. CT abdomen/pelvis was performed showing moderate edematous pancreatic head changes without any evidence of necrotic parenchyma or drainable fluid. Patient was admitted to the floor due to persistent abdominal pain and inability to hold down oral intake. During my evaluation he endorsed diffuse epigastric abdominal pain. He did endorse drinking a bottle of wine yesterday and states he has had alcohol withdrawal episodes in the past. He states that he responds well to Ativan. Patient denies any shortness of breath or chest pain. Denies any fever or chills. History - Past Medical History Cardiovascular: reports: Atrial fibrillation Respiratory: reports: None Neuro: reports: None Endocrine/Autoimmune: reports: None GI: reports: GERD, Pancreatitis, Other : reports: None HEENT: reports: None, Other Psych: reports: Anxiety, Other Musculoskeletal: reports: Chronic back pain Derm: reports: None MRSA Hx?: No - Past Surgical History General: reports: Cholecystectomy, Colonoscopy, Other Ortho: reports: Rotator cuff repair HEENT: reports: Other - Family & Social History Family History: Mother: , Cancer (Mother from breast cancer, father from lymphoma), Father: , Cancer, Sister: Alive and Well, Brother: Alive and Well, Other family: CAD (1 grandfather had heart disease) Family History Comment/Other: grandfather had heart disease, Mother from breast cancer, father from lymphoma Social History Notes: Patient vague on his alcohol use "just a few beers" ( reports came home w/ whiskey when he reports beers). Vague on smoking history; "used to smoke at least 1 PPD, reports now smoking only "a few cigarettes / day ~ 5) - Substance History Use: Uses substance without health or social issues: Cannabis - POLST Patient has POLST: No POLST Status: Full Code Meds/Allgy - Home Medications Home Medications: Ambulatory Orders Medication Instructions Recorded Confirmed Omeprazole Magnesium 20 mg PO DAILY 12/30/20 03/13/23 Quetiapine Fumarate [Seroquel] 100 mg PO QPM 12/31/20 03/13/23 LORazepam [Ativan] 1 mg PO Q6H PRN #25 tablet 08/17/21 03/13/23 HYDROcod/ACETAM 5/325 [[place] 5/325] 1 - 2 tablet PO Q6H PRN 03/13/23 03/13/23 - Allergies Allergies/Adverse Reactions: Allergies Allergy/AdvReac Type Severity Reaction Status Date / Time buspirone [From BuSpar] Allergy Unknown Verified 03/13/23 08:50 pregabalin [From Lyrica] Allergy Unknown Verified 03/13/23 08:50 Penicillins AdvReac Unknown Rash Verified 03/13/23 08:50 Review of Systems - Constitutional Constitutional: denies: Fatigue - Gastrointestinal Gastrointestinal: reports: Abdominal pain, Abdominal distention - All Other Systems All Other Systems: reports: Reviewed and negative Prior Level of Functionality: Independent. Exam - Vital Signs Reviewed Vital Signs: Yes Vital Signs: Vital Signs x48h Temp Pulse Pulse Resp BP BP BP 03/13/23 17:52 149/80 H 03/13/23 17:23 36.6 C 125 H 16 144/102 H 144/103 H 03/13/23 14:00 35.9 C L 96 19 162/89 H 03/13/23 12:55 36.1 C L 94 16 182/101 H 03/13/23 10:55 36.5 C 77 16 148/84 H Pulse Ox 03/13/23 17:52 03/13/23 17:23 99 03/13/23 14:00 100 03/13/23 12:55 99 03/13/23 10:55 98 - Physical Exam General Appearance: positive: No acute distress, Alert Eyes Bilateral: positive: Normal inspection, PERRL ENT: positive: ENT inspection nml, Pharynx nml, No signs of dehydration Neck: positive: Nml inspection, Thyroid nml, No JVD, Trachea midline Respiratory: positive: Chest non-tender, No respiratory distress, Breath sounds nml Cardiovascular: positive: No murmur, No gallop, Tachycardia Peripheral Pulses: positive: 2+ Abdomen: positive: Non-tender, No organomegaly, Nml bowel sounds, No distention, Tenderness Back: positive: Nml inspection Skin: positive: Color nml, No rash, Warm, Dry Extremities: positive: Non-tender, Full ROM, Nml appearance Neurologic/Psychiatric: positive: Oriented x3, Mood/affect nml Sepsis Event Note (H) - Evaluation Current Stage of Sepsis: Ruled out Conclusion/Plan - Problem List (1) Pancreatitis, acute Conclusion/Plan: -- Aggressive IV fluids with lactated ringer. 200 mL an hour for 18 hours. --Prior history of a cholecystectomy. I believe the etiology is likely his alcohol use. --Analgesia and antiemetics available. Qualifiers: Pancreatitis type: unspecified pancreatitis type Acute pancreatitis complication: no infection or necrosis Qualified Code(s): K85.90 - Acute pancreatitis without necrosis or infection, unspecified (2) Alcohol abuse Conclusion/Plan: --CIWA protocol initiated. -- Patient was not exactly on how much she drank although he does endorse a prior history of withdrawals. He had a bottle of wine last night. (3) Chronic low back pain Conclusion/Plan: --Continue home pain medications. Qualifiers: Back pain laterality: right Sciatica presence: with sciatica Sciatica laterality: sciatica of right side Qualified Code(s): M54.41 - Lumbago with sciatica, right side; G89.29 - Other chronic pain - Lab Results Lab results reviewed: Yes Fish Bones: 03/13/23 09:24 03/13/23 09:24 - Diagnostic Imaging Results Diagnostic Imaging Results: positive: Final report reviewed Core Measures - DVT/VTE - Prophylaxis VTE/DVT Device ordered at admit?: Yes
[2023-03-13] MEDS: LORazepam 1 MG TABLET PO PRN ×2 (18:17→21:02)
[2023-03-13 18:24] LABS: ALBUMIN 3.5 g/dL (3.2-5.5); ALBUMIN/GLOBULIN RATIO 1.5 (1.0-2.2); BILIRUBIN,TOTAL 0.9 mg/dL (0.2-1.0); CALCIUM 7.7 mg/dL (8.5-10.3); CREATININE 0.6 mg/dL (0.6-1.3); POTASSIUM 3.9 mmol/L (3.5-4.5); TOTAL PROTEIN 5.8 g/dL (6.4-8.9)
[2023-03-13] MEDS: QUEtiapine 100 MG TABLET PO SCH (20:56)
[2023-03-14] MEDS: ACETAMINOPHEN 325 MG TABLET PO PRN (00:07)
[2023-03-14] MEDS: SODIUM CHLORIDE FLUSH 0.9% 10 ML SYRINGE IVP SCH ×3 (00:07→17:37)
[2023-03-14] MEDS: LORazepam 1 MG TABLET PO PRN ×3 (02:54→17:38)
[2023-03-14] MEDS: ONDANSETRON 4 MG/2 ML VIAL IVP PRN ×3 (02:55→20:04)
[2023-03-14] MEDS: LACTATED RINGERS 1,000 ML IV SCH ×2 (02:57→08:17)
[2023-03-14 05:20] LABS: BASOPHILS % (AUTO) 0.3 %; EOSINOPHILS % (AUTO) 0.1 %; HCT - HEMATOCRIT 33.5 % (42.0-52.0); HGB - HEMOGLOBIN 11.7 g/dL (14.0-18.0); LYMPHOCYTES # (AUTO) 1.1 10^3/uL (1.5-3.5); LYMPHOCYTES % (AUTO) 12.1 %; MEAN CORPUSCULAR HEMOGLOBIN 33.4 pg (27.0-31.0); MEAN CORPUSCULAR HGB CONC 34.9 g/dL (32.0-36.0); MEAN CORPUSCULAR VOLUME 95.7 fL (80.0-94.0); MEAN PLATELET VOLUME 9.1 fL (7.4-11.4); MONOCYTES # (AUTO) 0.5 10^3/uL (0.0-1.0); MONOCYTES % (AUTO) 6.2 %; PLT - PLATELET COUNT 87 10^3/uL (130-450); RED CELL DISTRIBUTION WIDTH 12.9 % (12.0-15.0); WHITE BLOOD COUNT 8.7 x10^3/uL (4.8-10.8)
[2023-03-14 05:33] LABS: BILIRUBIN,DIRECT 0.2 mg/dL (0.03-0.18); BILIRUBIN,TOTAL 0.7 mg/dL (0.2-1.0); CALCIUM 7.4 mg/dL (8.5-10.3); CREATININE 0.6 mg/dL (0.6-1.3); POTASSIUM 3.2 mmol/L (3.5-4.5)
[2023-03-14] MEDS: HYDROmorphone 0.5 MG/0.5 ML SYRINGE IVP PRN ×4 (06:31→19:50)
[2023-03-14] MEDS: PANTOPRAZOLE 40 MG TABLET PO SCH (06:31)
[2023-03-14] MEDS ORDERED: POTASSIUM CHLORIDE 20 MEQ TABLET PO ONE (07:12)
[2023-03-14] MEDS: HYDROcod/ACETAM 5/325 MG TABLET PO PRN ×3 (08:55→23:42)
[2023-03-14] MEDS: ENOXAPARIN 40 MG/0.4 ML SYRINGE SUBQ SCH (08:55)
[2023-03-14] MEDS ORDERED: MULTIVITAMIN 10 ML, THIAMINE INJ 100 MG, FOLIC ACID INJ 1 MG in SODIUM CHLORIDE 0.9% 1,... IV SCH (09:00)
[2023-03-14] MEDS ORDERED: [UNRECOGNIZED DRUG - OTHER] IV SCH ×5 (10:13)
[2023-03-14] MEDS ORDERED: MULTIVITAMIN IV SCH ×5 (10:13)
[2023-03-14] MEDS ORDERED: FOLIC ACID IV SCH ×5 (10:13)
[2023-03-14] MEDS ORDERED: THIAMINE IV SCH ×5 (10:13)
--- NOTE | 2023-03-14 13:41 | PHARMACY PROGRESS NOTE ---
- Best Possible Medication History Admit Date and Time: 03/13/23 1641 Processed by: Pharmacy Medication History completed: Yes Patient Interview: Completed Secondary Source(s): Insurance records As the person ultimately responsible for medication therapy, providers are able to order a medication from an existing home medication list in [facility] via the "Reconcile Routine" prior to Confirmation of that medication by legal support analyst. Such practice is discouraged except when the physician, in their clinical judgment, deems that a medical need exists for a medication without regard to previous use.
--- NOTE | 2023-03-14 14:55 | PROVIDER PROGRESS NOTE ---
Assessment/Plan - Problem List (1) Pancreatitis, acute Qualifiers: Pancreatitis type: unspecified pancreatitis type Acute pancreatitis complication: no infection or necrosis Qualified Code(s): K85.90 - Acute pancreatitis without necrosis or infection, unspecified Assessment/Plan: --Was given aggressive IV fluids overnight. We will attempt to trial clear liquid diet today. --Prior history of a cholecystectomy. I believe the etiology is likely his alcohol use. --Analgesia and antiemetics available. (2) Alcohol abuse Assessment/Plan: --CIWA protocol initiated. He was scoring overnight and was given Ativan. No seizures. He was appropriate this morning without hallucinations or tremors. -- Patient was not exactly on how much she drank although he does endorse a prior history of withdrawals. (3) Chronic low back pain Qualifiers: Back pain laterality: right Sciatica presence: with sciatica Sciatica laterality: sciatica of right side Qualified Code(s): M54.41 - Lumbago with sciatica, right side; G89.29 - Other chronic pain Assessment/Plan: --Continue home pain medications. - Current Meds Current Meds: Current Medications Generic Name Dose Route Start Last Admin Trade Name Freq PRN Reason Stop Dose Admin Acetaminophen 650 mg 03/13/23 16:41 03/14/23 00:07 Acetaminophen 325 Mg Tablet PO 650 mg Q4HR PRN Administration Pain 1 to 4, or Fever Hydrocodone Bitart/Acetaminophen 1 tab 03/13/23 16:41 03/14/23 08:55 Hydrocod/Acetam 5/325 Mg Tablet PO 1 tab Q4HR PRN Administration Pain 5 to 7 Enoxaparin Sodium 40 mg 03/14/23 09:00 03/14/23 08:55 Enoxaparin 40 Mg/0.4 Ml Syringe SUBQ 40 mg DAILY DESMOND Administration Hydromorphone HCl 0.5 mg 03/13/23 16:41 03/14/23 14:18 Hydromorphone 0.5 Mg/0.5 Ml Syringe IVP 0.5 mg Q2H PRN Administration Pain 8 to 10 Lorazepam 2 mg 03/13/23 17:55 03/14/23 11:04 Lorazepam 1 Mg Tablet PO 2 mg Q1H PRN Administration CIWA > 8 Protocol Ondansetron HCl 4 mg 03/13/23 16:41 03/14/23 10:36 Ondansetron 4 Mg/2 Ml Vial IVP 4 mg Q6HR PRN Administration Nausea / Vomiting Pantoprazole Sodium 40 mg 03/14/23 07:00 03/14/23 06:31 Pantoprazole 40 Mg Tablet PO 40 mg QDAC DESMOND Administration Quetiapine Fumarate 100 mg 03/13/23 21:00 03/13/23 20:56 Quetiapine 100 Mg Tablet PO 100 mg QPM DESMOND Administration Sodium Chloride 10 ml 03/13/23 17:00 03/14/23 11:59 Sodium Chloride Flush 0.9% 10 Ml Syringe IVP 10 ml 0100,0900,1700 DESMOND Administration - Lab Result Fish Bone Diagrams: 03/14/23 05:05 03/14/23 05:05 - Additional Planning Condition/Complexity: Stable My Orders: My Active Orders 03/13/23 16:41 Activity Orders [RC] Q2HR IO [RC] IOSHIFT Incentive Spirometry - RT [RC] .tid Initiate Bowel Care Protocol [RC] .protocol Initiate Line Care Protocol [RC] QSHIFT Initiate Personal Care Protoco [RC] .protocol Oxygen Therapy [RC] .PRN Vital Signs [RC] 0800,1600,0000 Acetaminophen [Tylenol] 650 mg PO Q4HR PRN HYDROcod/ACETAM 5/325 [[place] 5/325] 1 tab PO Q4HR PRN HYDROmorphone 0.5MG SYRINGE [Dilaudid 0.5MG Syringe] 0.5 mg IVP Q2H PRN Ondansetron Inj [Zofran Inj] 4 mg IVP Q6HR PRN Sodium Chloride Flush 0.9% [Normal Saline Flush 0.9%] 10 ml IVP PRN PRN Code Status [OTHERS] Routine Condition of Patient [OTHERS] Routine DVT Prophylaxis [OTHERS] Routine 03/13/23 17:00 Sodium Chloride Flush 0.9% [Normal Saline Flush 0.9%] 10 ml IVP 0100,0900,1700 03/13/23 17:48 Tobacco Cessation [RC] .ONCE 03/13/23 17:55 CIWA - AR Score Card [RC] Q4HR Social Work Consult [CONS] Routine LORazepam [Ativan] 2 mg PO Q1H PRN 03/13/23 21:00 QUEtiapine [SEROquel] 100 mg PO QPM 03/14/23 Breakfast Clear Liquid Diet [DIET] 03/14/23 07:00 Pantoprazole [Protonix] 40 mg PO QDAC 03/14/23 09:00 Enoxaparin [Lovenox] 40 mg SUBQ DAILY 03/14/23 09:24 VITAMIN D 25-HYDROXY [REFLAB] Routine 03/15/23 05:00 BMP - BASIC METABOLIC PANEL [CHEM] DAILYLAB CBC [CBC - COMP BLD CT W/AUTO DIFF] [HEME] DAILYLAB MAGNESIUM [CHEM] DAILYLAB 03/15/23 09:00 Multivitamin [Infuvite] 10 ml Thiamine Inj [Vitamin B-1 Inj] 100 mg Folic Acid Inj [Folic Acid] 1 mg Magnesium Sulfate 2 gm Sodium Chloride 0.9% [Normal Saline 0.9%] 1,000 ml IV DAILY 03/16/23 05:00 BMP - BASIC METABOLIC PANEL [CHEM] DAILYLAB CBC [CBC - COMP BLD CT W/AUTO DIFF] [HEME] DAILYLAB 03/17/23 05:00 BMP - BASIC METABOLIC PANEL [CHEM] DAILYLAB CBC [CBC - COMP BLD CT W/AUTO DIFF] [HEME] DAILYLAB 03/18/23 05:00 BMP - BASIC METABOLIC PANEL [CHEM] DAILYLAB CBC [CBC - COMP BLD CT W/AUTO DIFF] [HEME] DAILYLAB Plan Discussed with:: Patient Subjective - Subjective Patient Reports: Feeling Better (Improved overnight. We will trial oral intake today.) Objective Vital Signs: Vital Signs - 24 hr 03/13/23 03/13/23 03/13/23 17:23 17:52 21:05 Temperature 36.6 C 37.4 C Heart Rate [ 125 H 102 H Brachial] Respiratory 16 16 Rate Blood Pressure 144/102 H [Left Brachial artery] Blood Pressure 144/103 H 149/80 H 151/80 H [Right Brachial artery] O2 Saturation 99 98 03/13/23 03/14/23 03/14/23 23:56 02:59 07:56 Temperature 37.9 C 37.1 C 37.6 C Heart Rate [ 107 H 97 Brachial] Respiratory 16 18 Rate Blood Pressure [Left Brachial artery] Blood Pressure 150/82 H 141/85 H [Right Brachial artery] O2 Saturation 96 95 Oxygen O2 Source Room air I&O (Last 24 Hrs): Intake and Output Totals x24h 03/12/23 03/13/23 03/14/23 23:59 23:59 23:59 Intake Total 3247.667 2156.667 Output Total 850 Balance 3247.667 1306.667 General: Alert, Oriented x3, Cooperative, No acute distress HEENT: Atraumatic, EOMI Neck: +2 carotid pulse wo bruit, No LAD Neuro: Alert, CN 2-12 Grossly Intact, Oriented Times 3 Cardiovascular: Regular rate, Normal S1, Normal S2, No murmurs Respiratory: Chest non-tender, No respiratory distress, Breath sounds nml Abdomen: Normal bowel sounds, Soft, No masses Extremities: No clubbing, No cyanosis, No edema, Normal pulses, No tenderness/swelling Skin: No rashes, No breakdown, No significant lesion - Results Results: Laboratory Results WBC 8.7 x10^3/uL (4.8-10.8) 03/14/23 05:05 RBC 3.50 10^6/uL (4.70-6.10) L 03/14/23 05:05 Hgb 11.7 g/dL (14.0-18.0) L 03/14/23 05:05 Hct 33.5 % (42.0-52.0) L 03/14/23 05:05 MCV 95.7 fL (80.0-94.0) H 03/14/23 05:05 MCH 33.4 pg (27.0-31.0) H 03/14/23 05:05 MCHC 34.9 g/dL (32.0-36.0) 03/14/23 05:05 RDW 12.9 % (12.0-15.0) 03/14/23 05:05 Plt Count 87 10^3/uL (130-450) L 03/14/23 05:05 MPV 9.1 fL (7.4-11.4) 03/14/23 05:05 Neut # (Auto) 7.0 10^3/uL (1.5-6.6) H 03/14/23 05:05 Lymph # (Auto) 1.1 10^3/uL (1.5-3.5) L 03/14/23 05:05 [place] # (Auto) 0.5 10^3/uL (0.0-1.0) 03/14/23 05:05 Eos # (Auto) 0.0 10^3/uL (0.0-0.7) 03/14/23 05:05 Baso # (Auto) 0.0 10^3/uL (0.0-0.1) 03/14/23 05:05 Absolute Nucleated RBC 0.00 x10^3/uL 03/14/23 05:05 Nucleated RBC % 0.0 /100WBC 03/14/23 05:05 Sodium 136 mmol/L (135-145) 03/14/23 05:05 Potassium 3.2 mmol/L (3.5-4.5) L 03/14/23 05:05 Chloride 103 mmol/L (101-111) 03/14/23 05:05 Carbon Dioxide 24 mmol/L (21-32) 03/14/23 05:05 Anion Gap 9.0 (6-13) 03/14/23 05:05 BUN 5 mg/dL (6-20) L 03/14/23 05:05 Creatinine 0.6 mg/dL (0.6-1.3) 03/14/23 05:05 Estimated GFR (MDRD) 138 (>89) 03/14/23 05:05 Glucose 89 mg/dL (74-104) 03/14/23 05:05 Calcium 7.4 mg/dL (8.5-10.3) L 03/14/23 05:05 Magnesium 1.0 mg/dL (1.7-2.3) L* 03/14/23 05:09 Total Bilirubin 0.7 mg/dL (0.2-1.0) 03/14/23 05:05 Direct Bilirubin 0.20 mg/dL (0.03-0.18) H 03/14/23 05:05 AST 30 IU/L (10-42) 03/14/23 05:05 ALT 13 IU/L (10-60) 03/14/23 05:05 Alkaline Phosphatase 76 IU/L (42-121) 03/14/23 05:05 Total Protein 5.0 g/dL (6.4-8.9) L 03/14/23 05:05 Albumin 3.0 g/dL (3.2-5.5) L 03/14/23 05:05 Globulin 2.0 g/dL (2.1-4.2) L 03/14/23 05:05 Albumin/Globulin Ratio 1.5 (1.0-2.2) 03/13/23 18:07 Lipase 1428 U/L (11-82) H 03/13/23 09:24 - Procedures Procedures: Procedures COLONOSCOPY (08/10/14) EXCISION OF SIGMOID COLON, OPEN APPROACH (08/08/17) SUPPLEMENT ABDOMINAL WALL WITH SYNTH SUB, OPEN APPROACH (08/08/17) Sepsis Event Note (H) - Evaluation Current Stage of Sepsis: Ruled out Current Medications - Current Medications Current Medications: Active Medications Generic Name Dose Route Start Last Admin Trade Name Freq PRN Reason Stop Dose Admin Acetaminophen 650 mg 03/13/23 16:41 03/14/23 00:07 Acetaminophen 325 Mg Tablet PO 650 mg Q4HR PRN Administration Pain 1 to 4, or Fever Hydrocodone Bitart/Acetaminophen 1 tab 03/13/23 16:41 03/14/23 08:55 Hydrocod/Acetam 5/325 Mg Tablet PO 1 tab Q4HR PRN Administration Pain 5 to 7 Enoxaparin Sodium 40 mg 03/14/23 09:00 03/14/23 08:55 Enoxaparin 40 Mg/0.4 Ml Syringe SUBQ 40 mg DAILY DESMOND Administration Hydromorphone HCl 0.5 mg 03/13/23 16:41 03/14/23 14:18 Hydromorphone 0.5 Mg/0.5 Ml Syringe IVP 0.5 mg Q2H PRN Administration Pain 8 to 10 Multivitamins 10 ml/ Thiamine 1,015.2 mls @ 100 mls/hr 03/15/23 09:00 HCl 100 mg/ Folic Acid 1 mg/ IV Magnesium Sulfate 2 gm/ Sodium DAILY DESMOND Chloride Lorazepam 2 mg 03/13/23 17:55 03/14/23 11:04 Lorazepam 1 Mg Tablet PO 2 mg Q1H PRN Administration CIWA > 8 Protocol Ondansetron HCl 4 mg 03/13/23 16:41 03/14/23 10:36 Ondansetron 4 Mg/2 Ml Vial IVP 4 mg Q6HR PRN Administration Nausea / Vomiting Pantoprazole Sodium 40 mg 03/14/23 07:00 03/14/23 06:31 Pantoprazole 40 Mg Tablet PO 40 mg QDAC DESMOND Administration Quetiapine Fumarate 100 mg 03/13/23 21:00 03/13/23 20:56 Quetiapine 100 Mg Tablet PO 100 mg QPM DESMOND Administration Sodium Chloride 10 ml 03/13/23 16:41 Sodium Chloride Flush 0.9% 10 Ml Syringe IVP PRN PRN NEEDED PER PROVIDER ORDERS Sodium Chloride 10 ml 03/13/23 17:00 03/14/23 11:59 Sodium Chloride Flush 0.9% 10 Ml Syringe IVP 10 ml 0100,0900,1700 DESMOND Administration Omeprazole Magnesium 20 mg PO DAILY 12/30/20 Quetiapine Fumarate [Seroquel] 100 mg PO QPM 12/31/20 HYDROcodone/ACET 7.5/325 [[place] 7.5/325] 1 - 2 tab PO Q6H PRN 03/14/23
[2023-03-14] MEDS: SODIUM CHLORIDE FLUSH 0.9% 10 ML SYRINGE IVP PRN (19:51)
[2023-03-14] MEDS: QUEtiapine 100 MG TABLET PO SCH (20:01)
[2023-03-15] MEDS: SODIUM CHLORIDE FLUSH 0.9% 10 ML SYRINGE IVP SCH ×3 (00:43→16:57)
[2023-03-15] MEDS: HYDROmorphone 0.5 MG/0.5 ML SYRINGE IVP PRN ×3 (00:43→09:48)
[2023-03-15] MEDS: SODIUM CHLORIDE FLUSH 0.9% 10 ML SYRINGE IVP PRN (05:01)
[2023-03-15 05:18] LABS: BASOPHILS % (AUTO) 0.3 %; EOSINOPHILS # (AUTO) 0.1 10^3/uL (0.0-0.7); EOSINOPHILS % (AUTO) 0.8 %; HCT - HEMATOCRIT 33.2 % (42.0-52.0); HGB - HEMOGLOBIN 11.1 g/dL (14.0-18.0); LYMPHOCYTES # (AUTO) 1.3 10^3/uL (1.5-3.5); LYMPHOCYTES % (AUTO) 13.4 %; MEAN CORPUSCULAR HEMOGLOBIN 32.6 pg (27.0-31.0); MEAN CORPUSCULAR HGB CONC 33.4 g/dL (32.0-36.0); MEAN CORPUSCULAR VOLUME 97.4 fL (80.0-94.0); MEAN PLATELET VOLUME 9.7 fL (7.4-11.4); MONOCYTES # (AUTO) 0.6 10^3/uL (0.0-1.0); NEUTROPHILS # (AUTO) 7.4 10^3/uL (1.5-6.6); NEUTROPHILS % (AUTO) 79.2 %; PLT - PLATELET COUNT 73 10^3/uL (130-450); RED BLOOD COUNT 3.41 10^6/uL (4.70-6.10); RED CELL DISTRIBUTION WIDTH 13.2 % (12.0-15.0); WHITE BLOOD COUNT 9.3 x10^3/uL (4.8-10.8)
[2023-03-15] MEDS: LORazepam 1 MG TABLET PO PRN ×6 (05:18→22:53)
[2023-03-15] MEDS: PANTOPRAZOLE 40 MG TABLET PO SCH (05:18)
[2023-03-15 05:31] LABS: CALCIUM 7.4 mg/dL (8.5-10.3); CREATININE 0.6 mg/dL (0.6-1.3); MAGNESIUM 1.7 mg/dL (1.7-2.3)
[2023-03-15] MEDS: ENOXAPARIN 40 MG/0.4 ML SYRINGE SUBQ SCH (07:46)
[2023-03-15] MEDS ORDERED: FOLIC ACID IV SCH ×5 (09:00)
[2023-03-15] MEDS ORDERED: [UNRECOGNIZED DRUG - OTHER] IV SCH ×5 (09:00)
[2023-03-15] MEDS ORDERED: MULTIVITAMIN IV SCH ×5 (09:00)
[2023-03-15] MEDS ORDERED: THIAMINE IV SCH ×5 (09:00)
[2023-03-15] MEDS: POTASSIUM CHLORIDE 20 MEQ TABLET PO SCH ×2 (09:48→21:01)
[2023-03-15] MEDS: HYDROcod/ACETAM 5/325 MG TABLET PO PRN ×3 (10:53→19:53)
[2023-03-15] MEDS: PRENATAL VITAMIN TABLET PO SCH (11:17)
[2023-03-15] MEDS: THIAMINE 100 MG TABLET PO SCH (11:17)
[2023-03-15] MEDS: NICOTINE 14 MG PATCH TOP SCH (11:17)
--- NOTE | 2023-03-15 12:08 | PROVIDER PROGRESS NOTE ---
Assessment/Plan - Problem List (1) Pancreatitis, acute Qualifiers: Pancreatitis type: unspecified pancreatitis type Acute pancreatitis complication: no infection or necrosis Qualified Code(s): K85.90 - Acute pancreatitis without necrosis or infection, unspecified Assessment/Plan: Conclusion/Plan: --Trial fat restricted diet today. Anticipate discharge tomorrow. --Prior history of a cholecystectomy. I believe the etiology is likely his alcohol use. --Analgesia and antiemetics available. Qualifiers: Pancreatitis type: unspecified pancreatitis type Acute pancreatitis com plication: no infection or necrosis Qualified Code(s): K85.90 - Acute pancreatitis without necrosis or infection, unspecified (2) Alcohol abuse Conclusion/Plan: --CIWA protocol initiated. -- Patient was not exactly on how much she drank although he does endorse a prior history of withdrawals. He had a bottle of wine last night. (3) Chronic low back pain Conclusion/Plan: --Continue home pain medications. Qualifiers: Back pain laterality: right Sciatica presence: with sciatica Sciatica laterality: sciatica of right side Qualified Code(s): M54.41 - Lumbago with s ciatica, right side; G89.29 - Other chronic pain (3) Chronic low back pain Qualifiers: Back pain laterality: right Sciatica presence: with sciatica Sciatica laterality: sciatica of right side Qualified Code(s): M54.41 - Lumbago with sciatica, right side; G89.29 - Other chronic pain - Current Meds Current Meds: Current Medications Generic Name Dose Route Start Last Admin Trade Name Freq PRN Reason Stop Dose Admin Acetaminophen 650 mg 03/13/23 16:41 03/14/23 00:07 Acetaminophen 325 Mg Tablet PO 650 mg Q4HR PRN Administration Pain 1 to 4, or Fever Hydrocodone Bitart/Acetaminophen 1 tab 03/13/23 16:41 03/15/23 10:53 Hydrocod/Acetam 5/325 Mg Tablet PO 1 tab Q4HR PRN Administration Pain 5 to 7 Enoxaparin Sodium 40 mg 03/14/23 09:00 03/15/23 07:46 Enoxaparin 40 Mg/0.4 Ml Syringe SUBQ Not Given DAILY DESMOND Lorazepam 2 mg 03/13/23 17:55 03/15/23 11:20 Lorazepam 1 Mg Tablet PO 2 mg Q1H PRN Administration CIWA > 8 Protocol Nicotine 1 patch 03/15/23 11:00 03/15/23 11:17 Nicotine 14 Mg Patch TOP 1 patch DAILY DESMOND Administration Ondansetron HCl 4 mg 03/13/23 16:41 03/14/23 20:04 Ondansetron 4 Mg/2 Ml Vial IVP 4 mg Q6HR PRN Administration Nausea / Vomiting Pantoprazole Sodium 40 mg 03/14/23 07:00 03/15/23 05:18 Pantoprazole 40 Mg Tablet PO 40 mg QDAC DESMOND Administration Potassium Chloride 40 meq 03/15/23 09:00 03/15/23 09:48 Potassium Chloride 20 Meq Tablet PO 03/16/23 09:01 40 meq BID DESMOND Administration Multivit/Folic Acid/Iron 1 tab 03/15/23 12:00 03/15/23 11:17 Vitamin Tablet PO 1 tab DAILYWM DESMOND Administration Quetiapine Fumarate 100 mg 03/13/23 21:00 03/14/23 20:01 Quetiapine 100 Mg Tablet PO 100 mg QPM DESMOND Administration Sodium Chloride 10 ml 03/13/23 16:41 03/15/23 05:01 Sodium Chloride Flush 0.9% 10 Ml Syringe IVP 10 ml PRN PRN Administration NEEDED PER PROVIDER ORDERS Sodium Chloride 10 ml 03/13/23 17:00 03/15/23 00:43 Sodium Chloride Flush 0.9% 10 Ml Syringe IVP 10 ml 0100,0900,1700 DESMOND Administration Thiamine HCl 100 mg 03/15/23 12:00 03/15/23 11:17 Thiamine 100 Mg Tablet PO 100 mg DAILY DESMOND Administration - Lab Result Fish Bone Diagrams: 03/15/23 04:55 03/15/23 04:55 - Additional Planning My Orders: My Active Orders 03/15/23 09:00 Potassium Chloride [K-Dur] 40 meq PO BID 03/15/23 11:00 Nicotine 14 mg Patch [Nicoderm] 1 patch TOP DAILY 03/15/23 Lunch Low Fat Diet [DIET] 03/15/23 12:00 Vitamin [Trinatal Rx 1] 1 tab PO DAILYWM Thiamine [Vitamin B-1] 100 mg PO DAILY 03/16/23 05:00 BMP - BASIC METABOLIC PANEL [CHEM] DAILYLAB CBC [CBC - COMP BLD CT W/AUTO DIFF] [HEME] DAILYLAB 03/16/23 08:00 Magnesium Oxide [Mag Ox] 400 mg PO DAILYWM 03/17/23 05:00 BMP - BASIC METABOLIC PANEL [CHEM] DAILYLAB CBC [CBC - COMP BLD CT W/AUTO DIFF] [HEME] DAILYLAB 03/18/23 05:00 BMP - BASIC METABOLIC PANEL [CHEM] DAILYLAB CBC [CBC - COMP BLD CT W/AUTO DIFF] [HEME] DAILYLAB Subjective - Subjective Patient Reports: Feeling Better, Resting Comfortably, No Complaints, Abdominal Pain Objective Vital Signs: Vital Signs - 24 hr 03/14/23 03/14/23 03/14/23 15:57 19:55 23:46 Temperature 37.1 C 37.4 C 37.0 C Heart Rate [ 85 99 108 H Brachial] Respiratory 20 18 18 Rate Blood Pressure 148/84 H 141/76 H 127/77 [Right Brachial artery] O2 Saturation 94 94 94 03/15/23 08:03 Temperature 37.3 C Heart Rate [ 93 Brachial] Respiratory 16 Rate Blood Pressure 136/84 H [Right Brachial artery] O2 Saturation 94 Oxygen O2 Source Room air I&O (Last 24 Hrs): Intake and Output Totals x24h 03/13/23 03/14/23 03/15/23 23:59 23:59 23:59 Intake Total 3247.667 2856.667 1140 Output Total 1900 1125 Balance 3247.667 956.667 15 General: Alert, Oriented x3, Cooperative, No acute distress HEENT: Atraumatic, PERRLA, EOMI Neuro: Alert, CN 2-12 Grossly Intact, Oriented Times 3 Cardiovascular: Regular rate, Normal S1, Normal S2, No murmurs Respiratory: Chest non-tender, No respiratory distress, Breath sounds nml Abdomen: Normal bowel sounds, Soft (Some tenderness to palpation in LLQ. Pain is improving. He has had liquid stools. Will trial him on a fat free diet.), No hepatospenomegaly, No masses - Results Results: Laboratory Results WBC 9.3 x10^3/uL (4.8-10.8) 03/15/23 04:55 RBC 3.41 10^6/uL (4.70-6.10) L 03/15/23 04:55 Hgb 11.1 g/dL (14.0-18.0) L 03/15/23 04:55 Hct 33.2 % (42.0-52.0) L 03/15/23 04:55 MCV 97.4 fL (80.0-94.0) H 03/15/23 04:55 MCH 32.6 pg (27.0-31.0) H 03/15/23 04:55 MCHC 33.4 g/dL (32.0-36.0) 03/15/23 04:55 RDW 13.2 % (12.0-15.0) 03/15/23 04:55 Plt Count 73 10^3/uL (130-450) L 03/15/23 04:55 MPV 9.7 fL (7.4-11.4) 03/15/23 04:55 Neut # (Auto) 7.4 10^3/uL (1.5-6.6) H 03/15/23 04:55 Lymph # (Auto) 1.3 10^3/uL (1.5-3.5) L 03/15/23 04:55 [place] # (Auto) 0.6 10^3/uL (0.0-1.0) 03/15/23 04:55 Eos # (Auto) 0.1 10^3/uL (0.0-0.7) 03/15/23 04:55 Baso # (Auto) 0.0 10^3/uL (0.0-0.1) 03/15/23 04:55 Absolute Nucleated RBC 0.00 x10^3/uL 03/15/23 04:55 Nucleated RBC % 0.0 /100WBC 03/15/23 04:55 Sodium 135 mmol/L (135-145) 03/15/23 04:55 Potassium 3.0 mmol/L (3.5-4.5) L 03/15/23 04:55 Chloride 99 mmol/L (101-111) L 03/15/23 04:55 Carbon Dioxide 26 mmol/L (21-32) 03/15/23 04:55 Anion Gap 10.0 (6-13) 03/15/23 04:55 BUN 4 mg/dL (6-20) L 03/15/23 04:55 Creatinine 0.6 mg/dL (0.6-1.3) 03/15/23 04:55 Estimated GFR (MDRD) 138 (>89) 03/15/23 04:55 Glucose 71 mg/dL (74-104) L 03/15/23 04:55 Calcium 7.4 mg/dL (8.5-10.3) L 03/15/23 04:55 Magnesium 1.7 mg/dL (1.7-2.3) 03/15/23 04:55 Total Bilirubin 0.7 mg/dL (0.2-1.0) 03/14/23 05:05 Direct Bilirubin 0.20 mg/dL (0.03-0.18) H 03/14/23 05:05 AST 30 IU/L (10-42) 03/14/23 05:05 ALT 13 IU/L (10-60) 03/14/23 05:05 Alkaline Phosphatase 76 IU/L (42-121) 03/14/23 05:05 Total Protein 5.0 g/dL (6.4-8.9) L 03/14/23 05:05 Albumin 3.0 g/dL (3.2-5.5) L 03/14/23 05:05 Globulin 2.0 g/dL (2.1-4.2) L 03/14/23 05:05 Albumin/Globulin Ratio 1.5 (1.0-2.2) 03/13/23 18:07 Lipase 1428 U/L (11-82) H 03/13/23 09:24 Vitamin D 25-Hydroxy 9.7 ng/mL (30.0-100.0) L 03/14/23 09:24 - Procedures Procedures: Procedures COLONOSCOPY (08/10/14) EXCISION OF SIGMOID COLON, OPEN APPROACH (08/08/17) SUPPLEMENT ABDOMINAL WALL WITH SYNTH SUB, OPEN APPROACH (08/08/17) Sepsis Event Note (H) - Evaluation Current Stage of Sepsis: Ruled out Current Medications - Current Medications Current Medications: Active Medications Generic Name Dose Route Start Last Admin Trade Name Freq PRN Reason Stop Dose Admin Acetaminophen 650 mg 03/13/23 16:41 03/14/23 00:07 Acetaminophen 325 Mg Tablet PO 650 mg Q4HR PRN Administration Pain 1 to 4, or Fever Hydrocodone Bitart/Acetaminophen 1 tab 03/13/23 16:41 03/15/23 10:53 Hydrocod/Acetam 5/325 Mg Tablet PO 1 tab Q4HR PRN Administration Pain 5 to 7 Enoxaparin Sodium 40 mg 03/14/23 09:00 03/15/23 07:46 Enoxaparin 40 Mg/0.4 Ml Syringe SUBQ Not Given DAILY DESMOND Lorazepam 2 mg 03/13/23 17:55 03/15/23 11:20 Lorazepam 1 Mg Tablet PO 2 mg Q1H PRN Administration CIWA > 8 Protocol Magnesium Oxide 400 mg 03/16/23 08:00 Magnesium Oxide 400 Mg Tablet PO DAILYWM DESMOND Nicotine 1 patch 03/15/23 11:00 03/15/23 11:17 Nicotine 14 Mg Patch TOP 1 patch DAILY DESMOND Administration Ondansetron HCl 4 mg 03/13/23 16:41 03/14/23 20:04 Ondansetron 4 Mg/2 Ml Vial IVP 4 mg Q6HR PRN Administration Nausea / Vomiting Pantoprazole Sodium 40 mg 03/14/23 07:00 03/15/23 05:18 Pantoprazole 40 Mg Tablet PO 40 mg QDAC DESMOND Administration Potassium Chloride 40 meq 03/15/23 09:00 03/15/23 09:48 Potassium Chloride 20 Meq Tablet PO 03/16/23 09:01 40 meq BID DESMOND Administration Multivit/Folic Acid/Iron 1 tab 03/15/23 12:00 03/15/23 11:17 Vitamin Tablet PO 1 tab DAILYWM DESMOND Administration Quetiapine Fumarate 100 mg 03/13/23 21:00 03/14/23 20:01 Quetiapine 100 Mg Tablet PO 100 mg QPM DESMOND Administration Sodium Chloride 10 ml 03/13/23 16:41 03/15/23 05:01 Sodium Chloride Flush 0.9% 10 Ml Syringe IVP 10 ml PRN PRN Administration NEEDED PER PROVIDER ORDERS Sodium Chloride 10 ml 03/13/23 17:00 03/15/23 00:43 Sodium Chloride Flush 0.9% 10 Ml Syringe IVP 10 ml 0100,0900,1700 DESMOND Administration Thiamine HCl 100 mg 03/15/23 12:00 03/15/23 11:17 Thiamine 100 Mg Tablet PO 100 mg DAILY DESMOND Administration Omeprazole Magnesium 20 mg PO DAILY 12/30/20 Quetiapine Fumarate [Seroquel] 100 mg PO QPM 12/31/20 HYDROcodone/ACET 7.5/325 [[place] .] 1 - 2 tab PO Q6H PRN 03/14/23
[2023-03-15] MEDS ORDERED: ERGOCALCIFEROL 50,000 UNIT CAPSULE PO ONE (14:00)
[2023-03-15] MEDS: ONDANSETRON 4 MG/2 ML VIAL IVP PRN (15:11)
[2023-03-15] MEDS: ACETAMINOPHEN 325 MG TABLET PO PRN ×2 (16:56→21:01)
[2023-03-15] MEDS: HYDROmorphone 0.5 MG/0.5 ML SYRINGE IVP ONE ×2 (18:00→18:32)
[2023-03-15] MEDS ORDERED: HYDROmorphone 0.5 MG/0.5 ML SYRINGE IM STA (18:05)
[2023-03-15] MEDS: QUEtiapine 100 MG TABLET PO SCH (21:01)
[2023-03-16] MEDS: LORazepam 1 MG TABLET PO PRN ×6 (00:22→05:55)
[2023-03-16] MEDS: HYDROcod/ACETAM 5/325 MG TABLET PO PRN ×3 (02:59→23:39)
[2023-03-16] MEDS: PANTOPRAZOLE 40 MG TABLET PO SCH (06:00)
[2023-03-16 06:02] LABS: BASOPHILS % (AUTO) 0.5 %; EOSINOPHILS # (AUTO) 0.1 10^3/uL (0.0-0.7); EOSINOPHILS % (AUTO) 0.8 %; HCT - HEMATOCRIT 32.8 % (42.0-52.0); HGB - HEMOGLOBIN 10.9 g/dL (14.0-18.0); LYMPHOCYTES % (AUTO) 11.6 %; MEAN CORPUSCULAR HEMOGLOBIN 32.2 pg (27.0-31.0); MEAN CORPUSCULAR HGB CONC 33.2 g/dL (32.0-36.0); MEAN CORPUSCULAR VOLUME 96.8 fL (80.0-94.0); MEAN PLATELET VOLUME 9.8 fL (7.4-11.4); MONOCYTES # (AUTO) 0.7 10^3/uL (0.0-1.0); MONOCYTES % (AUTO) 8.1 %; NEUTROPHILS # (AUTO) 6.7 10^3/uL (1.5-6.6); NEUTROPHILS % (AUTO) 78.4 %; PLT - PLATELET COUNT 90 10^3/uL (130-450); RED BLOOD COUNT 3.39 10^6/uL (4.70-6.10); RED CELL DISTRIBUTION WIDTH 13.2 % (12.0-15.0); WHITE BLOOD COUNT 8.6 x10^3/uL (4.8-10.8)
[2023-03-16 06:21] LABS: CALCIUM 8.2 mg/dL (8.5-10.3); CREATININE 0.7 mg/dL (0.6-1.3); POTASSIUM 2.9 mmol/L (3.5-4.5)
[2023-03-16] MEDS ORDERED: LORazepam 2 MG/ML VIAL IVP STA (07:16)
[2023-03-16] MEDS: chlordiazePOXIDE 25 MG CAPSULE PO SCH ×4 (07:51→23:40)
[2023-03-16] MEDS: NICOTINE 14 MG PATCH TOP SCH (07:52)
[2023-03-16] MEDS ORDERED: LORazepam 2 MG/ML VIAL IVP PRN ×2 (07:54→08:01)
[2023-03-16] MEDS: SODIUM CHLORIDE FLUSH 0.9% 10 ML SYRINGE IVP SCH ×4 (08:06→23:40)
[2023-03-16] MEDS: LORazepam 2 MG/ML VIAL IVP PRN ×6 (09:14→23:50)
[2023-03-16] MEDS: POTASSIUM CHLOR 10 MEQ/100 ML 10 MEQ/100 ML BAG IV SCH ×2 (11:13→12:35)
[2023-03-16] MEDS: THIAMINE 100 MG TABLET PO SCH (11:15)
[2023-03-16] MEDS: MAGNESIUM OXIDE 400 MG TABLET PO SCH (11:15)
[2023-03-16] MEDS: PRENATAL VITAMIN TABLET PO SCH (11:15)
[2023-03-16] MEDS: ACETAMINOPHEN 325 MG TABLET PO PRN (11:21)
[2023-03-16] MEDS: POTASSIUM CHLORIDE 20 MEQ TABLET PO SCH (11:34)
[2023-03-16] MEDS: ENOXAPARIN 40 MG/0.4 ML SYRINGE SUBQ SCH (11:39)
--- NOTE | 2023-03-16 13:31 | PROVIDER PROGRESS NOTE ---
Assessment/Plan - Problem List (1) Pancreatitis, acute Qualifiers: Pancreatitis type: unspecified pancreatitis type Acute pancreatitis complication: no infection or necrosis Qualified Code(s): K85.90 - Acute pancreatitis without necrosis or infection, unspecified Assessment/Plan: (1) Pancreatitis, acute Qualifiers: Pancreatitis type: unspecified pancreatitis type Acute pancreatitis complication: no infection or necrosis Qualified Code(s): K85.90 - Acute pancreatitis without necrosis or infection, unspecified Assessment/Plan: Conclusion/Plan: --Improving. --Prior history of a cholecystectomy. I believe the etiology is likely his alcohol use. --Analgesia and antiemetics available. Qualifiers: Pancreatitis type: unspecified pancreatitis type Acute pancreatitis complication: no infection or necrosis Qualified Code(s): K85.90 - Acute pancreatitis without necrosis or infection, unspecified (2) Alcohol abuse Conclusion/Plan: --Suffering from acute alcohol withdrawal. --CIWA protocol initiated with IV ativan. --Librium 25 mg QID. (3) Chronic low back pain Conclusion/Plan: --Continue home pain medications. Qualifiers: Back pain laterality: right Sciatica presence: with sciatica Sciatica laterality: sciatica of right side Qualified Code(s): M54.41 - Lumbago with sciatica, right side; G89.29 - Other chronic pain (3) Chronic low back pain Qualifiers: Back pain laterality: right Sciatica presence: with sciatica Sciatica laterality: sciatica of right side Qualified Code(s): M54.41 - Lumbago with sciatica, right side; G89.29 - Other chronic pain - Current Meds Current Meds: Current Medications Generic Name Dose Route Start Last Admin Trade Name Anthonyq PRN Reason Stop Dose Admin Acetaminophen 650 mg 03/13/23 16:41 03/16/23 11:21 Acetaminophen 325 Mg Tablet PO 650 mg Q4HR PRN Administration Pain 1 to 4, or Fever Hydrocodone Bitart/Acetaminophen 1 tab 03/13/23 16:41 03/16/23 02:59 Hydrocod/Acetam 5/325 Mg Tablet PO 1 tab Q4HR PRN Administration Pain 5 to 7 Chlordiazepoxide HCl 25 mg 03/16/23 08:00 03/16/23 11:23 Chlordiazepoxide 25 Mg Capsule PO 25 mg Q6HR DESMOND Administration Enoxaparin Sodium 40 mg 03/14/23 09:00 03/16/23 11:39 Enoxaparin 40 Mg/0.4 Ml Syringe SUBQ Not Given DAILY DESMOND Lorazepam 1 mg 03/16/23 08:58 03/16/23 09:14 Lorazepam 2 Mg/Ml Vial IVP 1 mg Q30M PRN Administration CIWA >8 Protocol Magnesium Oxide 400 mg 03/16/23 08:00 03/16/23 11:15 Magnesium Oxide 400 Mg Tablet PO 400 mg DAILYWM DESMOND Administration Nicotine 1 patch 03/15/23 11:00 03/16/23 07:52 Nicotine 14 Mg Patch TOP 1 patch DAILY DESMOND Administration Ondansetron HCl 4 mg 03/13/23 16:41 03/15/23 15:11 Ondansetron 4 Mg/2 Ml Vial IVP 4 mg Q6HR PRN Administration Nausea / Vomiting Pantoprazole Sodium 40 mg 03/14/23 07:00 03/16/23 06:00 Pantoprazole 40 Mg Tablet PO 40 mg QDAC DESMOND Administration Multivit/Folic Acid/Iron 1 tab 03/15/23 12:00 03/16/23 11:15 Vitamin Tablet PO 1 tab DAILYWM DESMOND Administration Quetiapine Fumarate 100 mg 03/13/23 21:00 03/15/23 21:01 Quetiapine 100 Mg Tablet PO 100 mg QPM DESMOND Administration Sodium Chloride 10 ml 03/13/23 16:41 03/15/23 05:01 Sodium Chloride Flush 0.9% 10 Ml Syringe IVP 10 ml PRN PRN Administration NEEDED PER PROVIDER ORDERS Sodium Chloride 10 ml 03/13/23 17:00 03/16/23 08:06 Sodium Chloride Flush 0.9% 10 Ml Syringe IVP 10 ml 0100,0900,1700 DESMOND Administration Thiamine HCl 100 mg 03/15/23 12:00 03/16/23 11:15 Thiamine 100 Mg Tablet PO 100 mg DAILY DESMOND Administration - Lab Result Fish Bone Diagrams: 03/16/23 05:09 03/16/23 05:09 - Additional Planning My Orders: My Active Orders 03/16/23 08:00 Magnesium Oxide [Mag Ox] 400 mg PO DAILYWM chlordiazePOXIDE [Librium] 25 mg PO Q6HR 03/16/23 08:58 LORazepam INJ [Ativan Inj (Vial)] 1 mg IVP Q30M PRN 03/16/23 10:20 Environmental Safety Check - PSC [RC] [id number] One to One Obs w/ Direct [id number] [RC] Q2HR 03/17/23 05:00 BMP - BASIC METABOLIC PANEL [CHEM] DAILYLAB CBC [CBC - COMP BLD CT W/AUTO DIFF] [HEME] DAILYLAB 03/18/23 05:00 BMP - BASIC METABOLIC PANEL [CHEM] DAILYLAB CBC [CBC - COMP BLD CT W/AUTO DIFF] [HEME] DAILYLAB Subjective - Subjective Patient Reports: Other (Agitated and confused this morning. He was attempting to leave AMA however was calm down by nursing staff. We started him on an aggressive CIWA protocol with IV Ativan and Librium. He is withdrawing from alcohol.) Objective Vital Signs: Vital Signs - 24 hr 03/15/23 03/15/23 03/16/23 15:50 23:43 07:33 Temperature 37.4 C 36.8 C Heart Rate [ 85 115 H 115 H Brachial] Respiratory 20 18 20 Rate Blood Pressure 120/77 107/63 112/67 [Right Brachial artery] O2 Saturation 92 95 94 Oxygen O2 Source Room air I&O (Last 24 Hrs): Intake and Output Totals x24h 03/14/23 03/15/23 03/16/23 23:59 23:59 23:59 Intake Total 2856.667 2560 1300 Output Total 1900 1125 Balance 622.856 0252 1300 General: Mild distress HEENT: Atraumatic, PERRLA Neuro: Disoriented, CN 2-12 Grossly Intact Cardiovascular: Regular rate, Normal S1, Normal S2 Respiratory: Chest non-tender, No respiratory distress, Breath sounds nml Abdomen: Normal bowel sounds, Soft Extremities: No clubbing, No cyanosis, No edema - Results Results: Laboratory Results WBC 8.6 x10^3/uL (4.8-10.8) 03/16/23 05:09 RBC 3.39 10^6/uL (4.70-6.10) L 03/16/23 05:09 Hgb 10.9 g/dL (14.0-18.0) L 03/16/23 05:09 Hct 32.8 % (42.0-52.0) L 03/16/23 05:09 MCV 96.8 fL (80.0-94.0) H 03/16/23 05:09 MCH 32.2 pg (27.0-31.0) H 03/16/23 05:09 MCHC 33.2 g/dL (32.0-36.0) 03/16/23 05:09 RDW 13.2 % (12.0-15.0) 03/16/23 05:09 Plt Count 90 10^3/uL (130-450) L 03/16/23 05:09 MPV 9.8 fL (7.4-11.4) 03/16/23 05:09 Neut # (Auto) 6.7 10^3/uL (1.5-6.6) H 03/16/23 05:09 Lymph # (Auto) 1.0 10^3/uL (1.5-3.5) L 03/16/23 05:09 [place] # (Auto) 0.7 10^3/uL (0.0-1.0) 03/16/23 05:09 Eos # (Auto) 0.1 10^3/uL (0.0-0.7) 03/16/23 05:09 Baso # (Auto) 0.0 10^3/uL (0.0-0.1) 03/16/23 05:09 Absolute Nucleated RBC 0.00 x10^3/uL 03/16/23 05:09 Nucleated RBC % 0.0 /100WBC 03/16/23 05:09 Sodium 135 mmol/L (135-145) 03/16/23 05:09 Potassium 2.9 mmol/L (3.5-4.5) L 03/16/23 05:09 Chloride 100 mmol/L (101-111) L 03/16/23 05:09 Carbon Dioxide 28 mmol/L (21-32) 03/16/23 05:09 Anion Gap 7.0 (6-13) 03/16/23 05:09 BUN 4 mg/dL (6-20) L 03/16/23 05:09 Creatinine 0.7 mg/dL (0.6-1.3) 03/16/23 05:09 Estimated GFR (MDRD) 116 (>89) 03/16/23 05:09 Glucose 146 mg/dL (74-104) H 03/16/23 05:09 Calcium 8.2 mg/dL (8.5-10.3) L 03/16/23 05:09 Magnesium 1.7 mg/dL (1.7-2.3) 03/15/23 04:55 Total Bilirubin 0.7 mg/dL (0.2-1.0) 03/14/23 05:05 Direct Bilirubin 0.20 mg/dL (0.03-0.18) H 03/14/23 05:05 AST 30 IU/L (10-42) 03/14/23 05:05 ALT 13 IU/L (10-60) 03/14/23 05:05 Alkaline Phosphatase 76 IU/L (42-121) 03/14/23 05:05 Total Protein 5.0 g/dL (6.4-8.9) L 03/14/23 05:05 Albumin 3.0 g/dL (3.2-5.5) L 03/14/23 05:05 Globulin 2.0 g/dL (2.1-4.2) L 03/14/23 05:05 Albumin/Globulin Ratio 1.5 (1.0-2.2) 03/13/23 18:07 Lipase 1428 U/L (11-82) H 03/13/23 09:24 Vitamin D 25-Hydroxy 9.7 ng/mL (30.0-100.0) L 03/14/23 09:24 - Procedures Procedures: Procedures COLONOSCOPY (08/10/14) EXCISION OF SIGMOID COLON, OPEN APPROACH (08/08/17) SUPPLEMENT ABDOMINAL WALL WITH SYNTH SUB, OPEN APPROACH (08/08/17) Sepsis Event Note (H) - Evaluation Current Stage of Sepsis: Ruled out Current Medications - Current Medications Current Medications: Active Medications Generic Name Dose Route Start Last Admin Trade Name Freq PRN Reason Stop Dose Admin Acetaminophen 650 mg 03/13/23 16:41 03/16/23 11:21 Acetaminophen 325 Mg Tablet PO 650 mg Q4HR PRN Administration Pain 1 to 4, or Fever Hydrocodone Bitart/Acetaminophen 1 tab 03/13/23 16:41 03/16/23 02:59 Hydrocod/Acetam 5/325 Mg Tablet PO 1 tab Q4HR PRN Administration Pain 5 to 7 Chlordiazepoxide HCl 25 mg 03/16/23 08:00 03/16/23 11:23 Chlordiazepoxide 25 Mg Capsule PO 25 mg Q6HR DESMOND Administration Enoxaparin Sodium 40 mg 03/14/23 09:00 03/16/23 11:39 Enoxaparin 40 Mg/0.4 Ml Syringe SUBQ Not Given DAILY DESMOND Lorazepam 1 mg 03/16/23 08:58 03/16/23 09:14 Lorazepam 2 Mg/Ml Vial IVP 1 mg Q30M PRN Administration CIWA >8 Protocol Magnesium Oxide 400 mg 03/16/23 08:00 03/16/23 11:15 Magnesium Oxide 400 Mg Tablet PO 400 mg DAILYWM DESMOND Administration Nicotine 1 patch 03/15/23 11:00 03/16/23 07:52 Nicotine 14 Mg Patch TOP 1 patch DAILY DESMOND Administration Ondansetron HCl 4 mg 03/13/23 16:41 03/15/23 15:11 Ondansetron 4 Mg/2 Ml Vial IVP 4 mg Q6HR PRN Administration Nausea / Vomiting Pantoprazole Sodium 40 mg 03/14/23 07:00 03/16/23 06:00 Pantoprazole 40 Mg Tablet PO 40 mg QDAC DESMOND Administration Multivit/Folic Acid/Iron 1 tab 03/15/23 12:00 03/16/23 11:15 Vitamin Tablet PO 1 tab DAILYWM DESMOND Administration Quetiapine Fumarate 100 mg 03/13/23 21:00 03/15/23 21:01 Quetiapine 100 Mg Tablet PO 100 mg QPM DESMOND Administration Sodium Chloride 10 ml 03/13/23 16:41 03/15/23 05:01 Sodium Chloride Flush 0.9% 10 Ml Syringe IVP 10 ml PRN PRN Administration NEEDED PER PROVIDER ORDERS Sodium Chloride 10 ml 03/13/23 17:00 03/16/23 08:06 Sodium Chloride Flush 0.9% 10 Ml Syringe IVP 10 ml 0100,0900,1700 DESMOND Administration Thiamine HCl 100 mg 03/15/23 12:00 03/16/23 11:15 Thiamine 100 Mg Tablet PO 100 mg DAILY DESMOND Administration RX: Omeprazole Magnesium 20 mg PO DAILY 12/30/20 RX: Quetiapine Fumarate [Seroquel] 100 mg PO QPM 12/31/20 RX: HYDROcodone/ACET 7.5/325 [[place] 7.5/325] 1 - 2 tab PO Q6H PRN 03/14/23
[2023-03-16] MEDS: ONDANSETRON 4 MG/2 ML VIAL IVP PRN ×2 (14:23→21:05)
[2023-03-16] MEDS: SODIUM CHLORIDE FLUSH 0.9% 10 ML SYRINGE IVP PRN ×2 (14:34→14:35)
[2023-03-16] MEDS ORDERED: HYDROmorphone 2 MG TABLET PO SCH (18:00)
[2023-03-16] MEDS: QUEtiapine 100 MG TABLET PO SCH (20:59)
[2023-03-17] MEDS: LORazepam 2 MG/ML VIAL IVP PRN (01:09)
[2023-03-17] MEDS: ACETAMINOPHEN 325 MG TABLET PO PRN (02:14)
[2023-03-17 05:38] LABS: BASOPHILS % (AUTO) 0.4 %; EOSINOPHILS # (AUTO) 0.2 10^3/uL (0.0-0.7); EOSINOPHILS % (AUTO) 2.5 %; HCT - HEMATOCRIT 32.9 % (42.0-52.0); HGB - HEMOGLOBIN 10.8 g/dL (14.0-18.0); LYMPHOCYTES # (AUTO) 1.6 10^3/uL (1.5-3.5); LYMPHOCYTES % (AUTO) 17.2 %; MEAN CORPUSCULAR HEMOGLOBIN 32.8 pg (27.0-31.0); MEAN CORPUSCULAR HGB CONC 32.8 g/dL (32.0-36.0); MEAN PLATELET VOLUME 9.5 fL (7.4-11.4); MONOCYTES # (AUTO) 1.1 10^3/uL (0.0-1.0); MONOCYTES % (AUTO) 12.3 %; NEUTROPHILS # (AUTO) 6.1 10^3/uL (1.5-6.6); NEUTROPHILS % (AUTO) 66.9 %; PLT - PLATELET COUNT 99 10^3/uL (130-450); RED BLOOD COUNT 3.29 10^6/uL (4.70-6.10); RED CELL DISTRIBUTION WIDTH 13.6 % (12.0-15.0); WHITE BLOOD COUNT 9.2 x10^3/uL (4.8-10.8)
[2023-03-17] MEDS: PANTOPRAZOLE 40 MG TABLET PO SCH (05:40)
[2023-03-17] MEDS: chlordiazePOXIDE 25 MG CAPSULE PO SCH (05:40)
[2023-03-17 07:05] LABS: CALCIUM 8.2 mg/dL (8.5-10.3); CREATININE 0.7 mg/dL (0.6-1.3); POTASSIUM 3.2 mmol/L (3.5-4.5)
[2023-03-17] MEDS ORDERED: POTASSIUM CHLORIDE 20 MEQ TABLET PO ONE (07:35)
[2023-03-17] MEDS: HYDROcod/ACETAM 5/325 MG TABLET PO PRN (07:45)
[2023-03-17] MEDS: MAGNESIUM OXIDE 400 MG TABLET PO SCH (09:27)
[2023-03-17] MEDS: PRENATAL VITAMIN TABLET PO SCH (09:27)
[2023-03-17] MEDS: ENOXAPARIN 40 MG/0.4 ML SYRINGE SUBQ SCH (09:28)
[2023-03-17] MEDS: THIAMINE 100 MG TABLET PO SCH (09:28)
[2023-03-17] MEDS: SODIUM CHLORIDE FLUSH 0.9% 10 ML SYRINGE IVP SCH (09:29)
[2023-03-17] MEDS: NICOTINE 14 MG PATCH TOP SCH (09:57)
--- NOTE | 2023-03-17 10:27 | Discharge Plan ---
Discharge Plan Problem Reviewed?: Yes Disposition: Home, Self Care Condition: Good Diet: Regular Activity Restrictions: No Restrictions Instruction Topics: Pancreatitis Acute Dc No Smoking: If you smoke, Please STOP! Call for help.
[2023-03-17 11:53] VITALS: BP 124/88; O2SAT 95
--- NOTE | 2023-03-17 13:11 | DISCHARGE SUMMARY ---
Discharge Summary Discharge Date: 03/17/23 Discharging Provider: Samir Ram Primary Care Provider: Lavelle Griffin Code Status: Attempt Resuscitation Condition at Discharge: Good Discharge Disposition: 01 Home, Self Care - DIAGNOSES Discharge Diagnoses with Status of Each Condition: (1) Pancreatitis, acute Assessment/Plan: Conclusion/Plan: --Resolved. --Prior history of a cholecystectomy. I believe the etiology is likely his alcohol use. (2) Alcohol abuse Conclusion/Plan: --EtOH withdrawal in hospital. Not scoring on CIWA on discharge. - HPI History of Present Illness: Patient is a 57-year-old male with past medical history of alcohol abuse, gallstone pancreatitis s/p complicated cholecystectomy resulting in an ileostomy with reversal, MDD, who presented to the ED due to complaints of epigastric abdominal pain. CT abdomen/pelvis was performed showing moderate edematous pancreatic head changes without any evidence of necrotic parenchyma or drainable fluid. Patient was admitted to the floor due to persistent abdominal pain and inability to hold down oral intake. During my evaluation he endorsed diffuse epigastric abdominal pain. He did endorse drinking a bottle of wine yesterday and states he has had alcohol withdrawal episodes in the past. He states that he responds well to Ativan. Patient denies any shortness of breath or chest pain. Denies any fever or chills. - HOSPITAL COURSE Hospital Course: Patient is a 57-year-old male who presented to the ED due to complaints of epigastric abdominal pain. CT abdomen/pelvis was performed which revealed evidence of pancreatitis. He was admitted and started on supportive care with IV fluids, antiemetics and analgesia for his pancreatitis. Hospital course was complicated by a bout of alcohol withdrawal for which she required Librium as well as IV Ativan via CIWA scoring. She successfully wi thdrew without any seizures. Patient was discharged once he was able to tolerate an oral diet and scoring 0 on CIWA. Alcohol cessation was discussed with the patient. He states he has naloxone at home and will start taking this medication. We also had social work provide him resources however he declined. - ALLERGIES Allergies/Adverse Reactions: Allergies Allergy/AdvReac Type Severity Reaction Status Date / Time buspirone [From BuSpar] Allergy Unknown Verified 03/13/23 08:50 pregabalin [From Lyrica] Allergy Unknown Verified 03/13/23 08:50 Penicillins AdvReac Unknown Rash Verified 03/13/23 08:50 - MEDICATIONS Home Medications: Ambulatory Orders Medication Instructions Recorded Confirmed Omeprazole Magnesium 20 mg PO DAILY 12/30/20 03/13/23 Quetiapine Fumarate [Seroquel] 100 mg PO QPM 12/31/20 03/13/23 LORazepam [Ativan] 1 mg PO Q6H PRN #25 tablet 08/17/21 03/13/23 - PHYSICAL EXAM AT DISCHARGE General Appearance: positive: No acute distress, Alert, Mild distress Respiratory: positive: Chest non-tender, No respiratory distress, Breath sounds nml Cardiovascular: positive: Regular rate & rhythm, No murmur, No gallop Neurologic/Psychiatric: positive: Oriented x3, CN's nml (2-12) - LABS Result Diagrams: 03/17/23 05:20 03/17/23 05:20 - DIAGNOSTIC IMAGING Diagnostic Imaging Results: Final report reviewed - SEPSIS Current Stage of Sepsis: Ruled out - FOLLOW UP Follow Up: Follow-up with PCP in 3-5 days. - TIME SPENT Time Spent in Discharge (Minutes): 35
== END 2023-03-17 11:15 | disposition home or self-care (01) | DRG 439 ==
LOC: EDUNIT# → ED 08:41 → MS2 16:41
PROVIDERS: ADMIT Family Medicine; ATTEND Family Medicine
DX: K85.90 Acute pancreatitis without necrosis or infection, unspecified (principal); K85.20 Alcohol induced acute pancreatitis without necrosis or infection; F10.139 Alcohol abuse with withdrawal, unspecified; F17.200 Nicotine dependence, unspecified, uncomplicated; I48.91 Unspecified atrial fibrillation; F41.9 Anxiety disorder, unspecified; F17.210 Nicotine dependence, cigarettes, uncomplicated; Z90.49 Acquired absence of other specified parts of digestive tract; M54.41 Lumbago with sciatica, right side; G89.29 Other chronic pain
CPT/HCPCS: 36415; 74177; 76705; 80048; 80053; 80076; 82306; 83690; 83735; 85025; 96365; 96375; 96376; 99284; 99285; A9270; J1170; J1650; J2060; J7040; J7120; J8499

== ENCOUNTER 2023-04-03 14:00 | Outpatient (CLI) | payer MEDICARE, MEDICAID ==
--- NOTE | 2023-04-04 07:54 | XRAY Report ---
PROCEDURE: Wrist 4 View LT INDICATIONS: LEFT WRIST PAIN TECHNIQUE: 3 views of the wrist were acquired. COMPARISON: None. FINDINGS: Bones: No fractures or dislocations. No suspicious bony lesions. Mild osteoarthritic changes at the triscaphe joint and at the first, metacarpal joint. Soft tissues: No suspicious soft tissue calcifications or masses. IMPRESSION: 1. No acute bony abnormality. 2. Mild osteoarthritis. Reviewed by: Yvonne Pan MD on 04/04/2023 7:53 AM [facility] Approved by: Yvonne Pan MD on 04/04/2023 7:53 AM [facility] Station ID: [id number]
== END 2023-04-03 14:15 | disposition home or self-care (01) ==
LOC: DI.N 14:00
PROVIDERS: ATTEND Family Medicine
DX: M19.032 Primary osteoarthritis, left wrist (principal)

== ENCOUNTER 2023-06-13 10:47 | Outpatient (CLI) | payer MEDICARE, MEDICAID | END 2023-06-13 10:48 | disposition critical access hospital (66) | LOC: EMS 10:47 | DX: R11.2 Nausea with vomiting, unspecified (principal); R10.11 Right upper quadrant pain; F10.10 Alcohol abuse, uncomplicated | CPT/HCPCS: A0425; A0427 ==

== ENCOUNTER 2023-06-13 11:06 | Emergency (ER) | payer MEDICARE, MEDICAID ==
[2023-06-13] MEDS: SODIUM CHLORIDE 0.9% 1,000 ML IV STA (11:40)
[2023-06-13] MEDS: HYDROmorphone 1 MG/ML CARPUJECT IVP STA (11:40)
[2023-06-13] MEDS: PANTOPRAZOLE 40 MG VIAL IVP STA (11:40)
[2023-06-13 11:51] LABS: BASOPHILS # (AUTO) 0.1 10^3/uL (0.0-0.1); BASOPHILS % (AUTO) 1.1 %; EOSINOPHILS % (AUTO) 0.5 %; HCT - HEMATOCRIT 41.5 % (42.0-52.0); LYMPHOCYTES # (AUTO) 1.2 10^3/uL (1.5-3.5); LYMPHOCYTES % (AUTO) 13.9 %; MEAN CORPUSCULAR HEMOGLOBIN 32.5 pg (27.0-31.0); MEAN CORPUSCULAR HGB CONC 33.7 g/dL (32.0-36.0); MEAN CORPUSCULAR VOLUME 96.3 fL (80.0-94.0); MEAN PLATELET VOLUME 9.2 fL (7.4-11.4); MONOCYTES # (AUTO) 0.4 10^3/uL (0.0-1.0); MONOCYTES % (AUTO) 4.4 %; NEUTROPHILS # (AUTO) 7.1 10^3/uL (1.5-6.6); NEUTROPHILS % (AUTO) 79.9 %; PLT - PLATELET COUNT 169 10^3/uL (130-450); RED BLOOD COUNT 4.31 10^6/uL (4.70-6.10); RED CELL DISTRIBUTION WIDTH 13.4 % (12.0-15.0); WHITE BLOOD COUNT 8.9 x10^3/uL (4.8-10.8)
[2023-06-13 12:05] LABS: ALBUMIN/GLOBULIN RATIO 1.3 (1.0-2.2); ALKALINE PHOSPHATASE 118 IU/L (42-121); ALT ALANINE AMINOTRANSFERASE 33 IU/L (10-60); AST ASPARTATE AMINOTRANSFERASE 67 IU/L (10-42); BILIRUBIN,TOTAL 0.4 mg/dL (0.2-1.0); BUN - BLOOD UREA NITROGEN 4 mg/dL (6-20); CALCIUM 8.5 mg/dL (8.5-10.3); CARBON DIOXIDE - CO2 23 mmol/L (21-32); CHLORIDE 98 mmol/L (101-111); CREATININE 0.6 mg/dL (0.6-1.3); GFR - MDRD 138 (>89); GLUCOSE 143 mg/dL (74-104); LIPASE < 10 U/L (11-82); POTASSIUM 3.8 mmol/L (3.5-4.5); SODIUM 136 mmol/L (135-145); TOTAL PROTEIN 7.2 g/dL (6.4-8.9)
--- NOTE | 2023-06-13 12:43 | ED Physician Documentation ---
History of Present Illness - Stated complaint Stated Complaint: N/V - Chief complaint Chief Complaint: Abd Pain - History obtained from History obtained from: Patient - Additonal information Additional information: The patient comes to the emergency department chief complaint of upper abdominal and low back pain that been going on for approximately the past 4 days. The patient has a history of chronic low back pain but began to have episodic upper abdominal pain mainly on the right side started about 4 days ago. He states it waxes and wanes but since last night, seems to be worse. He has a history of alcoholism and has had pancreatitis previously. He states this feels similar though the location is little different. He began vomiting overnight and states this is set off his back pain. He denies any fevers or chills. No urinary symptoms. He noticed a small amount of blood in his vomitus. No blood in his stools. No melena. No chest symptoms. No loss of bowel or bladder control. No numbness or tingling in his lower extremities. No weakness. His last drink was this morning. He states his normal alcohol intake is about a sixpack of beer on a daily basis. PD PAST MEDICAL HISTORY - Past Medical History Cardiovascular: Atrial fibrillation Respiratory: None Neuro: None Endocrine/Autoimmune: None GI: GERD, Pancreatitis, Other : None HEENT: None, Other Psych: Anxiety, Other Musculoskeletal: Chronic back pain Derm: None - Past Surgical History Past Surgical History: Yes General: Cholecystectomy, Colonoscopy, Other Ortho: Rotator cuff repair HEENT: Other - Present Medications Home Medications: Ambulatory Orders Medication Instructions Recorded Confirmed Quetiapine Fumarate [Seroquel] 100 mg PO QPM 12/31/20 06/13/23 HYDROcodone/ACET 7.5/325 [Delta 1 each PO TID PRN 06/13/23 06/13/23 7.5/325] - Allergies Allergies/Adverse Reactions: Allergies Allergy/AdvReac Type Severity Reaction Status Date / Time buspirone [From BuSpar] Allergy Unknown Verified 06/13/23 11:21 pregabalin [From Lyrica] Allergy Unknown Verified 06/13/23 11:21 Penicillins AdvReac Unknown Rash Verified 06/13/23 11:21 - Social History Does the pt smoke?: Yes Smoking Status: Current every day smoker Does the pt drink ETOH?: Yes Does the pt have substance abuse?: No - Immunizations Immunizations are current?: Yes - POLST Patient has POLST: No POLST Status: Full Code PD ED PE NORMAL - Vitals Vital signs reviewed: Yes - General General: Alert and oriented X 3, Well developed/nourished, Other (The patient is writhing and occasionally crying out in pain but otherwise in no apparent distress.) - HEENT HEENT: Atraumatic, PERRL, EOMI, Moist mucous membranes - Neck Neck: Supple, no meningeal sign - Cardiac Cardiac: RRR, No murmur - Respiratory Respiratory: No respiratory distress, Clear bilaterally - Abdomen Abdomen: Soft, Non distended, Other (Moderate tenderness right abdomen upper greater than lower quadrant. No rebound or guarding.) - Back Back: No CVA TTP, Other (Tenderness palpation over the right back musculature, starting around the T12-L1 level and extending down over SI joint on the right. No left back tenderness. No spinal tenderness.) - Derm Derm: Normal color, Warm and dry, No rash - Extremities Extremities: No deformity, No edema - Neuro Neuro: Alert and oriented X 3, sifting operator 2-12 intact, No motor deficit, No sensory deficit, Normal speech, Other (Not grossly intoxicated. No tremors.) - Psych Psych: Normal mood, Normal affect Results - Vitals Vitals: Vital Signs - 24 hr 06/13/23 06/13/23 06/13/23 11:15 12:10 12:39 Temperature 36.3 C L 36.4 C L Heart Rate 104 H 101 H 68 Respiratory 20 20 20 Rate Blood Pressure 132/105 H 122/79 128/85 H O2 Saturation 98 97 91 L Oxygen O2 Source Room air - Labs Labs: Laboratory Tests 06/13/23 06/13/23 06/13/23 11:45 11:45 11:47 WBC 8.9 RBC 4.31 L Hgb 14.0 Hct 41.5 L MCV 96.3 H MCH 32.5 H MCHC 33.7 RDW 13.4 Plt Count 169 MPV 9.2 Neut # (Auto) 7.1 H Lymph # (Auto) 1.2 L Price # (Auto) 0.4 Eos # (Auto) 0.0 Baso # (Auto) 0.1 Absolute Nucleated RBC 0.00 Nucleated RBC % 0.0 Sodium 136 Potassium 3.8 Chloride 98 L Carbon Dioxide 23 Anion Gap 15.0 H BUN 4 L Creatinine 0.6 Estimated GFR (MDRD) 138 Glucose 143 H Calcium 8.5 Total Bilirubin 0.4 AST 67 H ALT 33 Alkaline Phosphatase 118 Total Protein 7.2 Albumin 4.0 Globulin 3.2 Albumin/Globulin Ratio 1.3 Lipase < 10 L Ethyl Alcohol 308.4 - Rads (name of study) CT abd/pelvis Relevant Findings:: Final report received, See rad report (Colonic thickening, improved since last CT. Resolution of peripancreatic inflammatory changes; fatty liver infiltration; cholecystectomy.) PD Medical Decision Making - ED course Complexity details: reviewed old records, reviewed results, re-evaluated patient, considered differential, d/w patient ED course: The patient was treated symptomatically in the emergency department with IV fluids and Dilaudid. He had already received Zofran in route and was not currently having any nausea. Patient was worked up with laboratory studies which showed a lipase less than 10 and no significant liver abnormalities. His white blood cell count was normal. His ER abdominal panel was unremarkable and alcohol level was 308. The patient was sent for CT of the abdomen and pelvis which was overall unremarkable. He had some diffuse colonic thickening that had improved since his last CT scan per radiologist. No other acute findings were noted. The patient was feeling better on reevaluation and I felt he was stable for discharge. He has been advised not to drive for the rest of the day, due to his alcohol level and the medication he received here. We have discussed the usual indications for return. Departure - Departure Disposition: 01 Home, Self Care Clinical Impression: Alcohol abuse, Acute exacerbation of chronic low back pain Acute alcohol intoxication Qualifiers: Complication of substance-induced condition: uncomplicated Qualified Code(s): F10.920 - Alcohol use, unspecified with intoxication, uncomplicated Abdominal pain Qualifiers: Abdominal location: right upper quadrant Qualified Code(s): R10.11 - Right upper quadrant pain Condition: Stable Instructions: ED Spasm Back No Trauma, ED Back Care Tips, ED Alcohol Intoxication Comments: Your labs and CT actually look pretty good today. Your large intestinal findings are improved on today's CT compared to the last time. There is no evidence of an acute condition involving your abdominal organs. You do not have pancreatitis today specifically. Your alcohol level was quite high, around 300. You should not drive for the rest of the day. You have been treated for your low back pain, as well, and there is no evidence of an acute emergent condition causing a flareup of the pain. Please make an appoint with your primary doctor to follow-up and address the ongoing back pain and your alcohol abuse. Forms: PCP List
[2023-06-13] MEDS: LORazepam 2 MG/ML VIAL IVP STA (12:46)
[2023-06-13] MEDS ORDERED: iohexoL-300 100 ML VIAL ONE (12:50)
[2023-06-13] MEDS: iohexoL-300 100 ML VIAL IVP ONE (13:19)
--- NOTE | 2023-06-13 13:38 | CT Report ---
PROCEDURE: Abdomen/Pelvis W INDICATIONS: R abd pain, vomiting CONTRAST: Omni 300 100ml TECHNIQUE: After the administration of intravenous contrast, a CT scan of the abdomen and pelvis was performed. Images were recorded and evaluated at appropriate window settings. Reformats: coronal and sagittal. F or radiation dose reduction, the following was used: automated exposure control, adjustment of mA and /or kV according to patient size. COMPARISON: 03/13/2023, 03/05/2022 FINDINGS: Image quality: Diagnostic. Lower chest: There is a mild degree of ill-defined opacity within the right middle lobe, as on series 8 image 7. The lung bases otherwise appear clear. The heart size is within normal limits. Liver: No solid mass. Diffuse fatty liver infiltration can be seen. Gallbladder and biliary tree: Cholecystectomy. Spleen: No splenomegaly. Pancreas: No pancreatic ductal dilation. No abnormal inflammatory change can be seen adjacent to the pancreas. Adrenals: No adrenal nodule. Kidneys and ureters: No hydronephrosis. No renal cystic lesion which requires follow up. No solid mas s. Stomach, bowel and peritoneum: Moderate generalized wall thickening can be seen of the colon. Mild garcia rrounding inflammatory change can be seen. No dilated loops of small bowel are seen. The stomach demonstrates no significant abnormality. Lymph nodes: No central or retroperitoneal adenopathy. Vessels: No infrarenal aortic aneurysm. PELVIS Reproductive organs: Unremarkable. Bladder: No abnormal wall thickening, accounting for underdistention. Pelvic lymph nodes: No pelvic adenopathy by size criteria. Bones: No aggressive osseous abnormality. Other: No significant ventral or inguinal hernia. IMPRESSION: Generalized colonic wall thickening can be seen. Please correlate with potential infectious and infla mmatory causes of colitis. The colon demonstrates an improved appearance compared to the prior CT. No findings of perforation or abscess can be seen. There is a small degree of infiltrate seen within the right middle lobe. Resolution of the previously seen peripancreatic inflammatory change. Additional findings: Fatty liver infiltration Cholecystectomy Reviewed by: Mic Barnett MD on 06/13/2023 12:37 PM [facility] Approved by: Mic Barnett MD on 06/13/2023 12:37 PM [facility] Station ID: [id number]
[2023-06-13 14:40] VITALS: BP 125/72; O2SAT 96
== END 2023-06-13 14:38 | disposition home or self-care (01) ==
LOC: EDUNIT# → ED 11:06
DX: F10.920 Alcohol use, unspecified with intoxication, uncomplicated (principal); R10.11 Right upper quadrant pain; I48.91 Unspecified atrial fibrillation; F17.200 Nicotine dependence, unspecified, uncomplicated
CPT/HCPCS: 36415; 74177; 80053; 83690; 85025; 96374; 96375; 99284; G0480; J1170; J2060; Q9967; 80320

== ENCOUNTER 2023-12-09 15:27 | Outpatient (CLI) | payer MEDICARE, MEDICAID | END 2023-12-09 23:59 | disposition short-term general hospital (02) | LOC: EMS 15:27 | DX: S69.91XA Unspecified injury of right wrist, hand and finger(s), initial encounter (principal); W03.XXXA Other fall on same level due to collision with another person, initial encounter; Y92.89 Other specified places as the place of occurrence of the external cause | CPT/HCPCS: A0425; A0429 ==

== ENCOUNTER 2023-12-16 13:33 | Outpatient (CLI) | payer MEDICARE, MEDICAID ==
--- NOTE | 2023-12-16 19:04 | XRAY Report ---
PROCEDURE: Hand 3+V RT INDICATIONS: HAND PAIN TECHNIQUE: 3 views of the hand(s) acquired. COMPARISON: 05/10/2020. FINDINGS: Bones: Mildly displaced fracture of the first distal phalanx base with intra-articular extension. N o suspicious bony lesions. Soft tissues: No suspicious soft tissue calcifications or masses. IMPRESSION: Mildly displaced intra-articular fracture of the first distal phalanx base. Reviewed by: Andi Molina MD on 12/16/2023 7:03 PM PDT Approved by: Andi Molina MD on 12/16/2023 7:03 PM PDT Station ID: [id number]
== END 2023-12-16 13:34 | disposition home or self-care (01) ==
LOC: DI 13:33
PROVIDERS: ATTEND Orthopaedic Surgery
DX: S62.521A Displaced fracture of distal phalanx of right thumb, initial encounter for closed fracture (principal)

== ENCOUNTER 2023-12-27 16:09 | Outpatient (CLI) | payer MEDICARE, MEDICAID | END 2023-12-27 16:10 | disposition critical access hospital (66) | LOC: EMS 16:09 | DX: F10.90 Alcohol use, unspecified, uncomplicated (principal); M54.50 Low back pain, unspecified; M25.531 Pain in right wrist | CPT/HCPCS: A0425; A0429 ==

== ENCOUNTER 2023-12-27 16:34 | Emergency (ER) | payer MEDICARE, MEDICAID ==
--- NOTE | 2023-12-27 17:20 | ED Physician Documentation ---
History of Present Illness - Stated complaint Stated Complaint: MHE/ETOH - Chief complaint Chief Complaint: MHE - Additonal information Additional information: 58-year-old male with history of alcohol dependence, atrial fibrillation, GERD, pancreatitis, anxiety, chronic back pain presents emergency department via EMS for concerns of excessive EtOH use and suicidal ideation. The story is a little unclear but according to EMS patient has been on a valdes for the last 3 to 4 days of alcohol, according to patient he said that he called his primary care provider's office because he ran out of his Vicodin 3 days early because he recently broke his right thumb. Patient says that he is sick of having chronic back pain and does not feel like he can last another 3 days without his Vicodin that he ran out of orally and so he called his primary care provider's office to ask for pain medication and he says they must of called 911 he says he does not think he told them that he was going to kill himself but he says he did tell the medic says he was having suicidal thoughts because of his chronic back pain. Patient is tearful throughout our conversation. PD PAST MEDICAL HISTORY - Past Medical History Cardiovascular: Atrial fibrillation Respiratory: None Neuro: None Endocrine/Autoimmune: None GI: GERD, Pancreatitis, Other : None HEENT: None, Other Psych: Anxiety, Other Musculoskeletal: Chronic back pain Derm: None - Past Surgical History Past Surgical History: Yes General: Cholecystectomy, Colonoscopy, Other Ortho: Rotator cuff repair HEENT: Other - Present Medications Home Medications: Ambulatory Orders Medication Instructions Recorded Confirmed Quetiapine Fumarate [Seroquel] 100 mg PO QPM 12/31/20 06/13/23 HYDROcodone/ACET 7.5/325 [[place] 1 each PO TID PRN 06/13/23 06/13/23 7.5/325] - Allergies Allergies/Adverse Reactions: Allergies Allergy/AdvReac Type Severity Reaction Status Date / Time buspirone [From BuSpar] Allergy Unknown Verified 12/27/23 16:40 pregabalin [From Lyrica] Allergy Unknown Verified 12/27/23 16:40 Penicillins AdvReac Unknown Rash Verified 12/27/23 16:40 - Social History Does the pt smoke?: Yes Smoking Status: Current every day smoker Does the pt drink ETOH?: Yes Does the pt have substance abuse?: No - Immunizations Immunizations are current?: Yes - POLST Patient has POLST: No POLST Status: Full Code PD ED PE NORMAL - Vitals Vital signs reviewed: Yes - General General: Alert and oriented X 3, No acute distress, Well developed/nourished - HEENT HEENT: Atraumatic, PERRL - Derm Derm: Normal color, Warm and dry, No rash - Extremities Extremities: Other (right thumb swelling, tenderness with flexion and extension) PD ED PE EXPANDED - Psych Psych: Intoxicated / AOB, Depressed, Suicidal, Tearful, Withdrawn, Anxious, Agitated. No: Homicidal, Poor eye contact, Manic, Pressured speech, Auditory hallucinations, Visual hallucinations, Tactile hallucinations, Delusions Results - Vitals Vitals: Vital Signs - 24 hr 12/27/23 12/27/23 16:40 18:47 Temperature 36.2 C L Heart Rate 96 94 Respiratory 18 17 Rate Blood Pressure 121/79 132/84 H O2 Saturation 97 98 Oxygen O2 Source Room air - Labs Labs: Laboratory Tests 12/27/23 12/27/23 12/27/23 16:44 17:17 17:17 WBC 5.7 RBC 4.00 L Hgb 13.1 L Hct 39.4 L MCV 98.5 H MCH 32.8 H MCHC 33.2 RDW 12.3 Plt Count 151 MPV 9.0 Neut # (Auto) 3.6 Lymph # (Auto) 1.7 [place] # (Auto) 0.3 Eos # (Auto) 0.0 Baso # (Auto) 0.1 Absolute Nucleated RBC 0.00 Nucleated RBC % 0.0 Sodium 137 Potassium 3.8 Chloride 98 L Carbon Dioxide 24 Anion Gap 15.0 H BUN 10 Creatinine 0.6 Estimated GFR (MDRD) 138 Glucose 93 Calcium 8.4 L Magnesium 1.7 Total Bilirubin 0.5 AST 92 H ALT 25 Alkaline Phosphatase 88 Total Creatine Kinase 111 Total Protein 7.1 Albumin 3.8 Globulin 3.3 Albumin/Globulin Ratio 1.2 Lipase < 10 L TSH 5.84 H Urine Color YELLOW Urine Clarity CLEAR Urine pH 6.0 Ur Specific [place] <=1.005 Urine Protein NEGATIVE Urine Glucose (UA) NEGATIVE Urine Ketones 15 H Urine Occult Blood NEGATIVE Urine Nitrite NEGATIVE Urine Bilirubin NEGATIVE Urine Urobilinogen 0.2 (NORMAL) Ur Leukocyte Esterase NEGATIVE Ur Microscopic Review NOT INDICATED Urine Culture Comments NOT INDICATED Salicylates < 1.5 Urine Opiates Screen POSITIVE H Ur Buprenorphine Scrn NEGATIVE Ur Oxycodone Screen POSITIVE H Urine Methadone Screen NEGATIVE Acetaminophen 6.0 Ur Barbiturates Screen NEGATIVE Ur Tricyclics Screen POSITIVE H Ur Phencyclidine Scrn NEGATIVE Ur Amphetamine Screen NEGATIVE U Methamphetamines Scrn NEGATIVE U Benzodiazepines Scrn NEGATIVE Urine Cocaine Screen NEGATIVE U Cannabinoids Screen NEGATIVE Ur Drug Screen Comment CUTOFF CONC BELOW: Ethyl Alcohol 401.1 PD Medical Decision Making - ED course ED course: 58-year-old male presents emergency department for suicidal ideation and excessive alcohol intake. Labs are complete for further evaluation he has no white count no anemia no electrolyte abnormalities and kidney function appears to be within normal limits. Urine drug screen is positive for tricyclics and oxycodone as well as opiates patient does so that he takes Vicodin for chronic pain. Alcohol level is at 401. Patient reports that he is having severe lower back pain and is tearful for this he said that he has seen spinal surgeons in the past for this but unfortunately there is no clear plan as to what the solution is. His main concern is that he ran out of his Vicodin 3 days early and is hoping to have something for pain even as simple as possible Toradol. Patient was given 30 mg of IM Toradol here in the emergency department With relief. Patent patient appears to be at baseline he is well-known to our emergency department and other staff members also report that patient appears to be at baseline he is able to walk without any good difficulty he does not appear to have any confusion no slurred speech he does not appear to be in alcohol withdrawal. 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 He says that he feels well supported at home he says he has an appoint with his primary care provider coming up and he understands that I will not be prescribing him any additional Vicodin and he is not endorsing any new or worsening acute back pain. He has no suicidal ideation or homicidal ideation continuously declines any thoughts of wanting to hurt himself or others and says that he feels safe for discharge. He was given return precautions and given information of what to do if he does start to have suicidal thoughts again all questions answered and safe for discharge. Departure - Departure Disposition: 01 Home, Self Care Clinical Impression: EtOH dependence, Elevated ETOH level, Suicidal thoughts Instructions: Addiction Alcohol, Addiction Tx Options, ED Depression, ED Alcohol Abuse Comments: Thank you for trusting us with your care. You are no longer feeling suicidal. It is very important that you quit drinking alcohol and that you do not drink alcohol with your Vicodin. Please come back to the emergency department immediately or call [phone] if you are starting to develop any suicidal or homicidal thoughts. Forms: PCP List Discharge Date/Time: 12/27/23 18:47
[2023-12-27 17:21] LABS: BASOPHILS # (AUTO) 0.1 10^3/uL (0.0-0.1); BASOPHILS % (AUTO) 1.2 %; EOSINOPHILS % (AUTO) 0.7 %; HCT - HEMATOCRIT 39.4 % (42.0-52.0); HGB - HEMOGLOBIN 13.1 g/dL (14.0-18.0); LYMPHOCYTES # (AUTO) 1.7 10^3/uL (1.5-3.5); LYMPHOCYTES % (AUTO) 29.5 %; MEAN CORPUSCULAR HEMOGLOBIN 32.8 pg (27.0-31.0); MEAN CORPUSCULAR HGB CONC 33.2 g/dL (32.0-36.0); MEAN CORPUSCULAR VOLUME 98.5 fL (80.0-94.0); MONOCYTES # (AUTO) 0.3 10^3/uL (0.0-1.0); MONOCYTES % (AUTO) 5.4 %; NEUTROPHILS # (AUTO) 3.6 10^3/uL (1.5-6.6); NEUTROPHILS % (AUTO) 62.9 %; PLT - PLATELET COUNT 151 10^3/uL (130-450); RED CELL DISTRIBUTION WIDTH 12.3 % (12.0-15.0); WHITE BLOOD COUNT 5.7 x10^3/uL (4.8-10.8)
[2023-12-27 17:24] LABS: BILIRUBIN,URINE NEGATIVE (NEGATIVE); GLUCOSE, URINE (UA) NEGATIVE (NEGATIVE); KETONES,URINE (UA) 15 mg/dL (NEGATIVE); LEUKOCYTE ESTERASE, URINE NEGATIVE (NEGATIVE); NITRITE,URINE NEGATIVE (NEGATIVE); OCCULT BLOOD,URINE NEGATIVE (NEGATIVE); PROTEIN,URINE NEGATIVE (NEGATIVE); UROBILINOGEN,URINE 0.2 (NORMAL) E.U./dL (NORMAL)
[2023-12-27 17:28] LABS: CLARITY,URINE CLEAR (CLEAR)
[2023-12-27 17:35] LABS: ALBUMIN 3.8 g/dL (3.2-5.5); ALBUMIN/GLOBULIN RATIO 1.2 (1.0-2.2); ALKALINE PHOSPHATASE 88 IU/L (42-121); ALT ALANINE AMINOTRANSFERASE 25 IU/L (10-60); AST ASPARTATE AMINOTRANSFERASE 92 IU/L (10-42); BILIRUBIN,TOTAL 0.5 mg/dL (0.2-1.0); BUN - BLOOD UREA NITROGEN 10 mg/dL (6-20); CALCIUM 8.4 mg/dL (8.5-10.3); CARBON DIOXIDE - CO2 24 mmol/L (21-32); CHLORIDE 98 mmol/L (101-111); CK- CREATINE KINASE 111 IU/L (30-223); CREATININE 0.6 mg/dL (0.6-1.3); ETOH - ETHANOL 401.1 mg/dL; GFR - MDRD 138 (>89); GLUCOSE 93 mg/dL (74-104); MAGNESIUM 1.7 mg/dL (1.7-2.3); POTASSIUM 3.8 mmol/L (3.5-4.5); SODIUM 137 mmol/L (135-145); TOTAL PROTEIN 7.1 g/dL (6.4-8.9)
[2023-12-27 17:37] LABS: AMPHETAMINE SCREEN,URINE NEGATIVE (NEGATIVE); BARBITURATE SCREEN,UR NEGATIVE (NEGATIVE); BENZODIAZEPINES SCREEN, URINE NEGATIVE (NEGATIVE); BUPRENORPHINE SCREEN, URINE NEGATIVE (NEGATIVE); COCAINE SCREEN URINE NEGATIVE (NEGATIVE); METHADONE SCREEN, URINE NEGATIVE (NEGATIVE); METHAMPHETAMINES SCREEN, URINE NEGATIVE (NEGATIVE); OPIATE SCREEN, URINE POSITIVE (NEGATIVE); OXYCODONE SCREEN, URINE POSITIVE (NEGATIVE); THC CANNABINOID SCREEN, URINE NEGATIVE (NEGATIVE); TRICYCLIC ANTIDEPRESSANT,URINE POSITIVE (NEGATIVE)
[2023-12-27 17:47] LABS: LIPASE < 10 U/L (11-82); SALICYLATE < 1.5 mg/dL
[2023-12-27 17:50] LABS: THYROID STIMULATING HORMONE 5.84 uIU/mL (0.34-5.60)
[2023-12-27] MEDS: KETOROLAC 30 MG/ML VIAL IM STA (17:50)
[2023-12-27 18:50] VITALS: BP 132/84; O2SAT 98
== END 2023-12-27 18:47 | disposition home or self-care (01) ==
LOC: EDUNIT# → ED 16:34
DX: F10.20 Alcohol dependence, uncomplicated (principal); R45.851 Suicidal ideations; M54.50 Low back pain, unspecified; S62.501D Fracture of unspecified phalanx of right thumb, subsequent encounter for fracture with routine healing; X58.XXXD Exposure to other specified factors, subsequent encounter; G89.29 Other chronic pain
CPT/HCPCS: 36415; 80053; 80143; 80306; 81003; 82550; 83690; 83735; 84443; 85025; 96372; 99283; 99284; G0480; 80179; 81001; 82077; 87086

== ENCOUNTER 2024-01-08 14:04 | Outpatient (CLI) | payer MEDICARE, MEDICAID ==
--- NOTE | 2024-01-08 16:39 | XRAY Report ---
PROCEDURE: Finger(s) RT INDICATIONS: RIGHT HAND PAIN, RIGHT THUMB TECHNIQUE: AP hand, 2 views of the first finger(s) acquired. COMPARISON: None. FINDINGS: Bones: Mildly displaced fracture of the first distal phalangeal base. Background mild degenerative c hanges. Fragmented ossicles or old fracture fragments seen at the first proximal phalangeal base. Questionable fracture fragment also seen dorsal to the carpal bones on lateral view. Soft tissues: No suspicious calcifications. IMPRESSION: First distal phalangeal base fracture. Fragmented ossicles or old fracture fragments seen at the first proximal phalangeal base. Questionable fracture fragment also seen dorsal to the carpal bones on lateral view, age indeterminat e. Reviewed by: Ammon Mills MD on 01/08/2024 4:38 PM PDT Approved by: Ammon Mills MD on 01/08/2024 4:38 PM PDT Station ID: [id number]
== END 2024-01-08 14:05 | disposition home or self-care (01) ==
LOC: DI 14:04
PROVIDERS: ATTEND Orthopaedic Surgery
DX: S62.521A Displaced fracture of distal phalanx of right thumb, initial encounter for closed fracture (principal)